=== PATIENT | male | born 1980 | race Hispanic/Latino ===

== ENCOUNTER 2016-06-02 13:33 | Emergency (ER) | payer MEDICAID, MEDICARE ==
[2016-06-02 13:40] VITALS: BMI 32.5
[2016-06-02 13:44] VITALS: TEMP 98.5
[2016-06-02] MEDS ORDERED: Sodium Chloride 0.9% 1,000 ML IV ONE (13:57)
--- NOTE | 2016-06-02 14:41 | ED PDOC ---
Arrival/HPI - General Chief Complaint: High Blood Pressure Time Seen by Provider: 06/02/16 13:34 Historian: Patient - History of Present Illness Narrative History of Present Illness (Text): 06/02/16 13:35 A 35 year old male, whose past medical history includes Diabetes, Hypertension, LE edema, and Neuropathy, presents to the emergency department complaining of a headache, a high blood pressure and possible elevated blood glucose levels that all began earlier today. Headache is not the worse headache of his life. Patient notes a subjective fever at home but states he did not take any antipyretics. Patient denies any chest pain, shortness of breath, polyuria, polydipsa, urinary changes or any other complaints at this time. PMD: Araseli Wakefield MD Time/Duration: 1-3 hours Symptom Onset: Sudden Symptom Course: Unchanged Quality: Other Activities at Onset: Rest Modifying Factors (Text): none Context: Home Associated Symptoms (Text): headache Past Medical History - Provider Review Nursing Documentation Reviewed: Yes - Infectious Disease Hx of Infectious Diseases: None - Tetanus Immunization Tetanus Immunization: Unknown - Cardiac Hx Hypertension: Yes - Pulmonary Hx Respiratory Disorders: No - Neurological HX Cerebrovascular Accident: Yes (multiplie CVAs, 6th one 12/2013) - HEENT Hx HEENT Disorder: Yes (wears glasses) Hx Macular Degeneration: Yes - Renal Hx Renal Disorder: Yes Hx Pyelonephritis: Yes Other/Comment: Kidney infection September 2014 - resolved with antibiotics - Endocrine/Metabolic Hx Hypothyroidism: Yes - Hematological/Oncological Hx Blood Disorders: No - Integumentary Hx Dermatological Disorder: No - Musculoskeletal/Rheumatological Hx Falls: Yes (fell forward 3 days ago) - Gastrointestinal Hx Gastrointestinal Disorders: Yes (colitis, constipation at times) Hx Gastroesophageal Reflux: Yes - Genitourinary/Gynecological Hx Genitourinary Disorders: Yes Hx Incontinence: Yes (urine and stool) Hx Urinary Tract Infection: Yes Other/Comment: pt self caths at home, neurogenic bladder - Psychiatric Hx Psychophysiologic Disorder: Yes Hx Anxiety: Yes Hx Depression: No Hx Emotional Abuse: No Hx Physical Abuse: No Hx Substance Use: No - Past Surgical History Past Surgical History: No Previous - Anesthesia Hx Anesthesia: Yes Hx Anesthesia Reactions: No Hx Malignant Hyperthermia: No - Suicidal Assessment Feels Threatened In Home Enviroment: No Family/Social History - Physician Review Nursing Documentation Reviewed: Yes Family/Social History: No Known Family HX Smoking Status: Never Smoked Hx Alcohol Use: No Hx Substance Use: No Hx Substance Use Treatment: No Allergies/Home Meds Allergies/Adverse Reactions: Allergies sulfamethoxazole [From Bactrim] Allergy (Verified 06/02/15 11:57) ANAPHYLAXIS trimethoprim [From Bactrim] Allergy (Verified 06/02/15 11:57) ANAPHYLAXIS Home Medications: Home Meds Medication Instructions Recorded Confirmed Alprazolam [Xanax] 0.5 mg PO BID 03/04/16 03/04/16 Aspirin [Ecotrin] 81 mg PO DAILY 03/04/16 03/04/16 Atorvastatin [Lipitor] 40 mg PO DAILY 03/04/16 03/04/16 Baclofen [Lioresal] 20 mg PO DAILY 03/04/16 03/04/16 Clopidogrel [Plavix] 75 mg PO DAILY 03/04/16 03/04/16 Cyclobenzaprine [Flexeril] 10 mg PO TID 03/04/16 03/04/16 Ibuprofen [Motrin Tab] 800 mg PO TID PRN 03/04/16 03/04/16 Insulin Detemir [Levemir] 16 unit SC BID 03/04/16 03/04/16 Insulin Lispro [humALOG] 1 unit SC QID 03/04/16 03/04/16 Labetalol [Trandate] 200 mg PO BID 03/04/16 03/04/16 Levocetirizine Dihydrochloride 5 mg PO DAILY 03/04/16 03/04/16 [Xyzal] Levothyroxine [Synthroid] 175 mcg PO DAILY 03/04/16 03/04/16 Ondansetron ODT [Zofran ODT] 4 mg PO TID PRN 03/04/16 03/04/16 Pantoprazole Sodium [Protonix] 40 mg PO DAILY 03/04/16 03/04/16 Pregabalin [Lyrica] 50 mg PO DAILY 03/04/16 03/04/16 Sertraline HCl 50 mg PO DAILY 03/04/16 03/04/16 Tamsulosin [Flomax] 0.4 mg PO DAILY 03/04/16 03/04/16 oxyCODONE [oxyCODONE Immediate 10 mg PO TID PRN 03/04/16 03/04/16 Release Tab] traZODone [Desyrel] 50 mg PO DAILY 03/04/16 03/04/16 Review of Systems - Physician Review All systems were reviewed & negative as marked: Yes - Review of Systems Constitutional: Fevers Respiratory: absent: SOB Cardiovascular: absent: Chest Pain Genitourinary Male: absent: Dysuria, Frequency, Hematuria, Urinary Output Changes Neurological: Headache Endocrine: absent: Polyuria, Polydipsia Physical Exam Vital Signs Reviewed: Yes Vital Signs Temp Pulse Resp BP Pulse Ox 06/02/16 15:00 81 18 144/84 99 06/02/16 13:43 98.5 F 89 18 173/104 H 100 06/02/16 13:40 98.5 F 89 16 173/104 H 100 Temperature: Afebrile Blood Pressure: Hypertensive Pulse: Regular Respiratory Rate: Normal Appearance: Positive for: Well-Appearing, Non-Toxic, Comfortable Pain Distress: None Mental Status: Positive for: Alert and Oriented X 3 Finger Stick Blood Glucose: 241 - Systems Exam Head: Present: Atraumatic, Normocephalic Pupils: Present: PERRL Extroacular Muscles: Present: EOMI Conjunctiva: Present: Normal Mouth: Present: Moist Mucous Membranes Neck: Present: Normal Range of Motion Respiratory/Chest: Present: Clear to Auscultation, Good Air Exchange. No: Respiratory Distress, Accessory Muscle Use Cardiovascular: Present: Regular Rate and Rhythm, Normal S1, S2. No: Murmurs Abdomen: Present: Normal Bowel Sounds. No: Tenderness, Distention, Peritoneal Signs Back: Present: Normal Inspection Upper Extremity: Present: Normal Inspection. No: Cyanosis, Edema Lower Extremity: Present: Normal Inspection. No: Edema Neurological: Present: GCS=15, CN II-XII Intact, Speech Normal Skin: Present: Warm, Dry, Normal Color. No: Rashes Psychiatric: Present: Alert, Oriented x 3, Normal Insight, Normal Concentration Medical Decision Making ED Course and Treatment: 06/02/16 13:35 Impression: A 35 year old male with a headache, high blood pressure and elevated blood sugars. Differential Diagnosis include but are not limited to: tension headache vs. migraine vs. hypertension vs. hyperglycemia Plan: -- EKG -- Chest X-ray -- Labs -- Urinalysis -- Mortin, Zofran, Toradol and IV Fluids -- Reassess and disposition Prior Visits: Notes and results from previous visits were reviewed. The patient last presented to the emergency department 03/04/16 for evaluation of vision problems. Progress Notes: EKG: Ordered, reviewed, and independently interpreted the EKG. Rate : 86 BPM Rhythm : NSR Interpretation : No ST-segment elevations or depressions, no T-wave inversions, normal intervals. 06/02/16 14:51 Chest X-ray: Creator : Andriy Rios MD COMPARISON: 04/25/2015 FINDINGS: LUNGS: No infiltrate. Linear scar/ atelectasis at left base. PLEURA: No significant pleural effusion identified, no pneumothorax apparent. CARDIOVASCULAR: Normal. OSSEOUS STRUCTURES: No significant abnormalities. VISUALIZED UPPER ABDOMEN: Normal. OTHER FINDINGS: None. IMPRESSION: No active disease. 06/02/16 16:06 Labs reviewed with patient. Patient to be discharged with follow-up instructions. - Critical Care Critical Care Minutes: 90 minutes - Lab Interpretations Lab Results: 06/02/16 14:30 06/02/16 14:30 Lab Results 06/02/16 14:30: WBC 8.5 D, RBC 3.85, Hgb 11.2 L, Hct 33.6 L, MCV 87.3, MCH 29.1 , MCHC 33.3, RDW 13.7, Plt Count 409, MPV 10.2, Gran % 67.2, Lymph % (Auto) 22.6 , Millard % (Auto) 5.9, Eos % (Auto) 3.5, Baso % (Auto) 0.8, Gran # 5.69, Lymph # 1.9, Millard # 0.5, Eos # 0.3, Baso # 0.07, Sodium 138, Potassium 4.9, Chloride 102 , Carbon Dioxide 26, Anion Gap 15, BUN 52 H, Creatinine 2.7 H, Est GFR ( Amer) 33, Est GFR (Non-Af Amer) 27, Random Glucose 130 H, Calcium 8.9, Total Bilirubin 0.6, AST 28, ALT 19, Alkaline Phosphatase 92, Troponin I < 0.01, Total Protein 7.1, Albumin 3.6, Globulin 3.5, Albumin/Globulin Ratio 1.0 L 06/02/16 14:00: Urine Opiates Screen Negative, Urine Methadone Screen Negative, Ur Barbiturates Screen Negative, Ur Phencyclidine Scrn Negative, Ur Amphetamines Screen Negative, U Benzodiazepines Scrn Negative, U Oth Cocaine Metabols Negative, U Cannabinoids Screen Negative I have reviewed the lab results: Yes - RAD Interpretation Radiology Orders: 06/02/16 13:58 CHEST PORTABLE [RAD] Stat - Medication Orders Current Medication Orders: Sodium Chloride (Sodium Chloride 0.9%) 1,000 mls @ 250 mls/hr IV .Q4H ONE Stop: 06/02/16 17:56 Last Admin: 06/02/16 14:49 Dose: 250 MLS/HR eMAR Start Stop Document 06/02/16 14:49 HI (Rec: 06/02/16 14:49 HI [id number]) Intravenous Solution Start Date 06/02/16 Start Time 14:49 Discontinued Medications Ibuprofen (Motrin Tab) 600 mg PO STAT STA Stop: 06/02/16 13:58 Last Admin: 06/02/16 14:36 Dose: Ketorolac Tromethamine (Toradol) 30 mg IVP STAT STA Stop: 06/02/16 14:03 Last Admin: 06/02/16 14:49 Dose: 30 MG IVP Administration Document 06/02/16 14:49 HI (Rec: 06/02/16 14:49 HI [id number]) Charges for Administration # of IVP Administrations 1 Ondansetron HCl (Zofran Inj) 4 mg IVP STAT STA Stop: 06/02/16 14:03 Last Admin: 06/02/16 14:49 Dose: 4 MG IVP Administration Document 06/02/16 14:49 HI (Rec: 06/02/16 14:49 OK [id number]) Charges for Administration # of IVP Administrations 1 - Scribe Statement The provider has reviewed the documentation as recorded by the Scribe Chepe Heaton Provider Scribe Attestation: All medical record entries made by the Scribe were at my direction and personally dictated by me. I have reviewed the chart and agree that the record accurately reflects my personal performance of the history, physical exam, medical decision making, and the department course for this patient. I have also personally directed, reviewed, and agree with the discharge instructions and disposition. Disposition/Present on Arrival - Present on Arrival Any Indicators Present on Arrival: No History of DVT/PE: No History of Uncontrolled Diabetes: No Urinary Catheter: Yes History of Decub. Ulcer: No History Surgical Site Infection Following: None - Disposition Have Diagnosis and Disposition been Completed?: Yes Diagnosis: Chronic kidney disease (CKD), Diabetes Disposition: HOME/ ROUTINE Disposition Time: 15:45 Patient Plan: Discharge Patient Problems: Current Active Problems Problem Status Diagnosed Acute kidney injury Acute Acute myocardial infarction Acute Cerebral vascular accident Acute Gastritis Acute Hematuria Acute Hyperkalemia Acute Neurogenic bladder Acute Pyelonephritis Acute Uncontrolled diabetes mellitus Acute Condition: STABLE Discharge Instructions (ExitCare): Diabetes Mellitus Type 1 in Adults (ED), Lira Catheter Placement and Care (ED) Additional Instructions: Thank you for letting us take care of you today. Your provider was Dr. Bustillo. You were treated for headache and hyperglycemia. The emergency medical care you received today was directed at your acute symptoms. If you were prescribed any medication, please fill it and take as directed. It may take several days for your symptoms to resolve. Return to the Emergency Department if your symptoms worsen, do not improve, or if you have any other problems. Please contact your doctor or call one of the physicians/clinics you have been referred to that are listed on the Patient Visit Information form that is included in your discharge packet. Bring any paperwork you were given at discharge with you along with any medications you are taking to your follow up visit. Our treatment cannot replace ongoing medical care by a primary care provider (PCP) outside of the emergency department. Thank you for allowing the [facility] team to be part of your care today. Follow up with your doctor in 3-4 days for re-evaluation. Referrals: PCP,NO [Primary Care Provider] - Follow up with primary
[2016-06-02 14:50] LABS: ADD MANUAL DIFF? NO
--- NOTE | 2016-06-02 14:52 | RAD ---
HISTORY: ? fever COMPARISON: 04/25/2015 FINDINGS: LUNGS: No infiltrate. Linear scar/ atelectasis at left base. PLEURA: No significant pleural effusion identified, no pneumothorax apparent. CARDIOVASCULAR: Normal. OSSEOUS STRUCTURES: No significant abnormalities. VISUALIZED UPPER ABDOMEN: Normal. OTHER FINDINGS: None. IMPRESSION: No active disease.
[2016-06-02 14:55] LABS: BASO # 0.07 [, K/mm3] (0.0-2.0); BASO % 0.8 % (0.0-3.0); EOS # 0.3 (0.0-0.7); EOS % 3.5 % (1.5-5.0); GRAN # 5.69 (1.4-6.5); GRAN % 67.2 % (50.0-68.0); HEMATOCRIT 33.6 % (42.0-52.0); LYMPH # 1.9 (1.2-3.4); LYMPH % 22.6 % (22.0-35.0); MEAN CELL VOLUME 87.3 fL (80.0-105.0); MEAN CORPUSCULAR HEMOGLOBIN 29.1 pg (25.0-35.0); MEAN CORPUSCULAR HGB CONC 33.3 g/dl (31.0-37.0); MEAN PLATELET VOLUME 10.2 fl (7.0-11.0); MONO # 0.5 (0.1-0.6); MONO % 5.9 % (1.0-6.0); PLATELET COUNT 409 [, 10^3/uL] (120.0-450.0); RED CELL DISTRIBUTION WIDTH 13.7 % (11.5-14.5); WHITE BLOOD COUNT 8.5 [, 10^3/ul] (4.5-11.0)
[2016-06-02 15:06] LABS: ALKALINE PHOSPHATASE 92 U/L (38-133); ALT/SGPT 19 U/L (7-56); AST/SGOT 28 U/L (15-59); BILIRUBIN,TOTAL 0.6 mg/dL (0.2-1.3); BLOOD UREA NITROGEN 52 mg/dL (7-21); CALCIUM 8.9 mg/dL (8.4-10.5); CARBON DIOXIDE 26 mmol/L (21-33); CHLORIDE 102 mmol/L (98-107); GFR AFRICAN-AMERICAN 33; GLUCOSE,RANDOM 130 mg/dL (70-110); POTASSIUM 4.9 mmol/L (3.6-5.0); SODIUM 138 mmol/L (132-148); TOTAL PROTEIN 7.1 g/dL (5.8-8.3)
[2016-06-02 15:31] LABS: TROPONIN I < 0.01 ng/mL
[2016-06-02 16:23] VITALS: BP 136/82; PULSE 75; RESP 16; O2SAT 100
--- NOTE | 2016-06-02 18:51 | CARD ---
APPROVED REPORT EKG Measurement Heart [id number] <Conclusion> Normal sinus rhythm Inferior infarct, age undetermined Abnormal ECG
== END 2016-06-02 17:01 | disposition home or self-care (01) ==
LOC: ED 13:33
DX: I12.9 Hypertensive chronic kidney disease with stage 1 through stage 4 chronic kidney disease, or unspecified chronic kidney disease (principal); E11.22 Type 2 diabetes mellitus with diabetic chronic kidney disease; N18.9 Chronic kidney disease, unspecified
CPT/HCPCS: 71010; 80053; 82948; 84484; 85025; 87086; 87181; 93005; 96374; 96375; 99285; G0480; J1885; J2405; J7040

== ENCOUNTER 2016-06-11 00:08 | Emergency (ER) | payer MEDICARE ==
[2016-06-11 00:09] VITALS: BMI 32.5
[2016-06-11 00:23] VITALS: RESP 18; TEMP 98.8; O2SAT 100
--- NOTE | 2016-06-11 00:32 | ED PDOC ---
Arrival/HPI - General Chief Complaint: Male Genitourinary Time Seen by Provider: 06/11/16 00:12 Historian: Patient - History of Present Illness Narrative History of Present Illness (Text): 06/11/16 00:30 Manjinder Mccartney Jr is a 35 year old male, whose past medical history includes diabetes, hypertension, stroke, NH, and neuropathy, who presents to the ED complaining of a López catheter malfunction tonight. Patient states his López catheter is blocked and he has been unable to pass urine. Patient reports some associated suprapubic discomfort. Patient denies any fever, chills, chest pain, shortness of breath, nausea, vomiting, diarrhea, neck pain, headache, dizziness, or any other complaints. Time/Duration: Other (today) Symptom Onset: Gradual Symptom Course: Unchanged Activities at Onset: Rest, Light Context: Home Past Medical History - Provider Review Nursing Documentation Reviewed: Yes - Infectious Disease Hx of Infectious Diseases: None - Tetanus Immunization Tetanus Immunization: Unknown - Cardiac Hx Hypertension: Yes - Pulmonary Hx Respiratory Disorders: No - Neurological HX Cerebrovascular Accident: Yes (multiplie CVAs, 6th one 12/2013) - HEENT Hx HEENT Disorder: Yes (wears glasses) Hx Macular Degeneration: Yes - Renal Hx Renal Disorder: Yes Hx Pyelonephritis: Yes Other/Comment: Kidney infection September 2014 - resolved with antibiotics - Endocrine/Metabolic Hx Hypothyroidism: Yes - Hematological/Oncological Hx Blood Disorders: No - Integumentary Hx Dermatological Disorder: No - Musculoskeletal/Rheumatological Hx Falls: Yes (fell forward 3 days ago) - Gastrointestinal Hx Gastrointestinal Disorders: Yes (colitis, constipation at times) Hx Gastroesophageal Reflux: Yes - Genitourinary/Gynecological Hx Genitourinary Disorders: Yes Hx Incontinence: Yes (urine and stool) Hx Urinary Tract Infection: Yes Other/Comment: pt self caths at home, neurogenic bladder - Psychiatric Hx Psychophysiologic Disorder: Yes Hx Anxiety: Yes Hx Depression: No Hx Emotional Abuse: No Hx Physical Abuse: No Hx Substance Use: No - Past Surgical History Past Surgical History: No Previous - Anesthesia Hx Anesthesia: Yes Hx Anesthesia Reactions: No Hx Malignant Hyperthermia: No - Suicidal Assessment Feels Threatened In Home Enviroment: No Family/Social History - Physician Review Nursing Documentation Reviewed: Yes Family/Social History: No Known Family HX Smoking Status: Never Smoked Hx Alcohol Use: No Hx Substance Use: No Hx Substance Use Treatment: No Allergies/Home Meds Allergies/Adverse Reactions: Allergies sulfamethoxazole [From Bactrim] Allergy (Verified 06/11/16 00:15) ANAPHYLAXIS trimethoprim [From Bactrim] Allergy (Verified 06/11/16 00:15) ANAPHYLAXIS Home Medications: Home Meds Medication Instructions Recorded Confirmed Alprazolam [Xanax] 0.5 mg PO BID 03/04/16 06/11/16 Aspirin [Ecotrin] 81 mg PO DAILY 03/04/16 06/11/16 Atorvastatin [Lipitor] 40 mg PO DAILY 03/04/16 06/11/16 Baclofen [Lioresal] 20 mg PO DAILY 03/04/16 06/11/16 Clopidogrel [Plavix] 75 mg PO DAILY 03/04/16 06/11/16 Cyclobenzaprine [Flexeril] 10 mg PO TID 03/04/16 06/11/16 Ibuprofen [Motrin Tab] 800 mg PO TID PRN 03/04/16 06/11/16 Insulin Detemir [Levemir] 16 unit SC BID 03/04/16 06/11/16 Insulin Lispro [humALOG] 1 unit SC QID 03/04/16 06/11/16 Labetalol [Trandate] 200 mg PO BID 03/04/16 06/11/16 Levocetirizine Dihydrochloride 5 mg PO DAILY 03/04/16 06/11/16 [Xyzal] Levothyroxine [Synthroid] 175 mcg PO DAILY 03/04/16 06/11/16 Ondansetron ODT [Zofran ODT] 4 mg PO TID PRN 03/04/16 06/11/16 Pantoprazole Sodium [Protonix] 40 mg PO DAILY 03/04/16 06/11/16 Pregabalin [Lyrica] 50 mg PO DAILY 03/04/16 06/11/16 Sertraline HCl 50 mg PO DAILY 03/04/16 06/11/16 Tamsulosin [Flomax] 0.4 mg PO DAILY 03/04/16 06/11/16 oxyCODONE [oxyCODONE Immediate 10 mg PO TID PRN 03/04/16 06/11/16 Release Tab] traZODone [Desyrel] 50 mg PO DAILY 03/04/16 06/11/16 Review of Systems - Physician Review All systems were reviewed & negative as marked: Yes - Review of Systems Constitutional: Normal. absent: Fevers Eyes: Normal ENT: Normal Respiratory: Normal. absent: SOB, Cough Cardiovascular: Normal. absent: Chest Pain Gastrointestinal: Normal. absent: Abdominal Pain, Diarrhea, Nausea, Vomiting Genitourinary Male: Other (+lópez catheter malfunction). absent: Dysuria, Frequency, Hematuria, Urinary Output Changes Musculoskeletal: Normal. absent: Back Pain, Neck Pain Skin: Normal. absent: Rash Neurological: Normal. absent: Headache, Dizziness Endocrine: Normal Hemo/Lymphatic: Normal Psychiatric: Normal Physical Exam Vital Signs Reviewed: Yes Vital Signs Temp Pulse Resp BP Pulse Ox 06/11/16 03:03 98.8 F 73 18 159/87 H 100 06/11/16 00:22 98.8 F 79 18 176/96 H 100 Temperature: Afebrile Blood Pressure: Hypertensive Pulse: Regular Respiratory Rate: Normal Appearance: Positive for: Well-Appearing, Non-Toxic, Comfortable Pain Distress: None Mental Status: Positive for: Alert and Oriented X 3 Finger Stick Blood Glucose: 230 - Systems Exam Head: Present: Atraumatic, Normocephalic Pupils: Present: PERRL Extroacular Muscles: Present: EOMI Conjunctiva: Present: Normal Mouth: Present: Moist Mucous Membranes Neck: Present: Normal Range of Motion Respiratory/Chest: Present: Clear to Auscultation, Good Air Exchange. No: Respiratory Distress, Accessory Muscle Use Cardiovascular: Present: Regular Rate and Rhythm, Normal S1, S2. No: Murmurs Abdomen: Present: Distention (Suprapubic fullness), Normal Bowel Sounds. No: Tenderness, Peritoneal Signs Upper Extremity: Present: Normal Inspection. No: Cyanosis, Edema Lower Extremity: Present: Normal Inspection. No: Edema Neurological: Present: GCS=15, CN II-XII Intact, Speech Normal Skin: Present: Warm, Dry, Normal Color. No: Rashes Psychiatric: Present: Alert, Oriented x 3, Normal Insight, Normal Concentration Medical Decision Making ED Course and Treatment: 06/11/16 00:30 Impression: 35 year old male complaining of a blocked López catheter today. Differential Diagnosis include but are not limited to: López catheter problem Plan: -- López catheter -- Reassess and disposition Prior Visits: Notes and results from previous visits were reviewed. Progress Notes: 06/11/16 03:27 López placed RN. Draining urine well, without complications. On re-evaluation, the patient feels better and is in no acute distress. I have discussed the results and plan with the patient, who expresses understanding. Patient in agreement with plan to discharged home. Patient is stable for discharge. Patient was instructed to follow up with physician/clinic in 1-2 days or return if symptoms worsen or new concerning symptoms arise. - Lab Interpretations Lab Results: Lab Results 06/11/16 01:45: Urine Color Yellow, Urine Appearance Clear, Urine pH 6.0, Ur Specific Brenton 1.025, Urine Protein >=300 H, Urine Glucose (UA) 250 H, Urine Ketones Negative, Urine Blood Small H, Urine Nitrate Positive H, Urine Bilirubin Negative, Urine Urobilinogen 0.2, Ur Leukocyte Esterase Moderate H, Urine RBC 0 - 2, Urine WBC Tntc, Urine Bacteria Large 06/11/16 00:21: POC Glucose (mg/dL) 230 H - Medication Orders Current Medication Orders: Discontinued Medications Cephalexin Monohydrate (Keflex) 500 mg PO STAT STA PRN Reason: Protocol Stop: 06/11/16 02:28 Last Admin: 06/11/16 02:59 Dose: 500 MG - Scribe Statement The provider has reviewed the documentation as recorded by the Garrett Rodrigez Provider Attestation: All medical record entries made by the Garrett were at my direction and personally dictated by me. I have reviewed the chart and agree that the record accurately reflects my personal performance of the history, physical exam, medical decision making, and the department course for this patient. I have also personally directed, reviewed, and agree with the discharge instructions and disposition. Disposition/Present on Arrival - Present on Arrival Any Indicators Present on Arrival: No History of DVT/PE: No History of Uncontrolled Diabetes: No Urinary Catheter: Yes History of Decub. Ulcer: No History Surgical Site Infection Following: None - Disposition Have Diagnosis and Disposition been Completed?: Yes Diagnosis: Urinary tract infection, López catheter problem Disposition: HOME/ ROUTINE Disposition Time: 03:25 Patient Problems: Current Active Problems Problem Status Diagnosed Acute kidney injury Acute Acute myocardial infarction Acute Cerebral vascular accident Acute Gastritis Acute Hematuria Acute Hyperkalemia Acute Neurogenic bladder Acute Pyelonephritis Acute Uncontrolled diabetes mellitus Acute Condition: GOOD Discharge Instructions (ExitCare): Urinary Tract Infection in Men (ED), López Catheter Placement and Care (ED) Prescriptions: Cephalexin [Keflex] 500 mg PO BID #14 capsule Referrals: Araseli Wakefield MD [Primary Care Provider] - Follow up with primary
[2016-06-11 02:03] LABS: URINE APPEARANCE CLEAR (CLEAR); URINE BILIRUBIN NEGATIVE (NEGATIVE); URINE BLOOD SMALL (NEGATIVE); URINE COLOR YELLOW (YELLOW); URINE GLUCOSE (UA) 250 mg/dL (NEGATIVE); URINE KETONE NEGATIVE (NEGATIVE); URINE LEUKOCYTE ESTERASE MODERATE Leu/uL (NEGATIVE); URINE PROTEIN >=300 mg/dL (<30 mg/dL); URINE UROBILINOGEN 0.2 E.U./dL (<1 E.U./dL)
[2016-06-11 02:10] LABS: URINE BACTERIA LARGE (NEG); URINE RBC 0 - 2 /hpf (0-2); URINE WBC TNTC /hpf (0-6)
[2016-06-11 03:05] VITALS: BP 159/87; PULSE 73
== END 2016-06-11 04:08 | disposition home or self-care (01) ==
LOC: ED 00:08
DX: N39.0 Urinary tract infection, site not specified (principal); T83.9XXA Unspecified complication of genitourinary prosthetic device, implant and graft, initial encounter; Y84.8 Other medical procedures as the cause of abnormal reaction of the patient, or of later complication, without mention of misadventure at the time of the procedure; Y92.009 Unspecified place in unspecified non-institutional (private) residence as the place of occurrence of the external cause; E11.9 Type 2 diabetes mellitus without complications; I10 Essential (primary) hypertension; E03.9 Hypothyroidism, unspecified

== ENCOUNTER 2016-07-12 10:32 | Inpatient (IN) | payer MEDICARE, MEDICAID ==
[2016-07-12] MEDS ORDERED: Sodium Chloride 0.9% 1,000 ML IV STA ×5 (11:06→18:50)
[2016-07-12 11:42] LABS: ADD MANUAL DIFF? NO
[2016-07-12 11:46] LABS: VENOUS BLOOD GAS BASE EXCESS -18.5 mmol/L (0.0-2.0)
[2016-07-12 11:54] LABS: VENOUS BLOOD PH 7.15 (7.32-7.43)
--- NOTE | 2016-07-12 11:58 | ED PDOC ---
Arrival/HPI - General Chief Complaint: GI Problem Time Seen by Provider: 07/12/16 11:04 Historian: Patient EM Caveat: Other (poor historian) - History of Present Illness Narrative History of Present Illness (Text): 07/12/16 11:34 A 35 year old male, whose past medical history includes diabetes, hypertension, stroke, CO, and neuropathy, presents to the emergency department complaining of "not feeling well." Patient reports he has been feeling warm for a day, along with nausea. Patient says he has not vomiting but has been dry heaving a lot. He denies any chest pain. HPI and ROS limited because patient is a poor historian. PMD: Dr. Mandujano Time/Duration: Other Symptom Course: Unchanged Quality: Other Activities at Onset: Rest Context: Home Past Medical History - Provider Review Nursing Documentation Reviewed: Yes - Infectious Disease Hx of Infectious Diseases: None - Tetanus Immunization Tetanus Immunization: Unknown - Cardiac Hx CO: Yes (x2) Hx Hypertension: Yes - Pulmonary Hx Respiratory Disorders: No - Neurological HX Cerebrovascular Accident: Yes (Multiple CVAs) - HEENT Hx HEENT Disorder: Yes (wears glasses) Hx Macular Degeneration: Yes - Renal Hx Renal Disorder: Yes Hx Pyelonephritis: Yes - Endocrine/Metabolic Hx Diabetes Mellitus Type 2: Yes Hx Hypothyroidism: Yes - Hematological/Oncological Hx Blood Disorders: No - Integumentary Hx Dermatological Disorder: No - Musculoskeletal/Rheumatological Hx Falls: Yes Other/Comment: 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 - Gastrointestinal Hx Gastrointestinal Disorders: Yes (colitis, constipation at times) Hx Gastroesophageal Reflux: Yes - Genitourinary/Gynecological Hx Genitourinary Disorders: Yes Hx Incontinence: Yes (urine and stool) Hx Urinary Tract Infection: Yes Other/Comment: lópez - Psychiatric Hx Psychophysiologic Disorder: Yes Hx Anxiety: Yes Hx Depression: No Hx Emotional Abuse: No Hx Physical Abuse: No Hx Substance Use: No - Past Surgical History Past Surgical History: No Previous - Anesthesia Hx Anesthesia: Yes Hx Anesthesia Reactions: No Hx Malignant Hyperthermia: No - Suicidal Assessment Feels Threatened In Home Enviroment: No Family/Social History - Physician Review Nursing Documentation Reviewed: Yes Family/Social History: Unknown Family HX Smoking Status: Never Smoked Hx Alcohol Use: No Hx Substance Use: No Hx Substance Use Treatment: No Allergies/Home Meds Allergies/Adverse Reactions: Allergies sulfamethoxazole [From Bactrim] Allergy (Verified 07/12/16 10:40) ANAPHYLAXIS trimethoprim [From Bactrim] Allergy (Verified 07/12/16 10:40) ANAPHYLAXIS Home Medications: Home Meds Medication Instructions Recorded Confirmed Alprazolam [Xanax] 0.5 mg PO BID 03/04/16 07/12/16 Aspirin [Ecotrin] 81 mg PO DAILY 03/04/16 07/12/16 Clopidogrel [Plavix] 75 mg PO DAILY 03/04/16 07/12/16 Cyclobenzaprine [Flexeril] 10 mg PO TID 03/04/16 07/12/16 Labetalol [Trandate] 200 mg PO BID 03/04/16 07/12/16 Levothyroxine [Synthroid] 175 mcg PO DAILY 03/04/16 07/12/16 Ondansetron ODT [Zofran ODT] 4 mg PO TID PRN 03/04/16 07/12/16 Pantoprazole Sodium [Protonix] 40 mg PO DAILY 03/04/16 07/12/16 Sertraline HCl 50 mg PO DAILY 03/04/16 07/12/16 Tamsulosin [Flomax] 0.4 mg PO DAILY 03/04/16 07/12/16 oxyCODONE [oxyCODONE Immediate 10 mg PO TID PRN 03/04/16 07/12/16 Release Tab] traZODone [Desyrel] 50 mg PO DAILY 03/04/16 07/12/16 Cholecalciferol (Vitamin D3) 2,000 unit PO DAILY 07/12/16 07/12/16 [Vitamin D3] Furosemide [Lasix] 20 mg PO DAILY 07/12/16 07/12/16 Gabapentin [Neurontin] 600 mg PO TID 07/12/16 07/12/16 Lisinopril [Zestril] 10 mg PO DAILY 07/12/16 07/12/16 Polymyxin B Sulf/Trimethoprim 10 ml OS QID 07/12/16 07/12/16 [Polymyxin B/Trimethoprim Sulfate 20047 U/ml-1] Prednisolone Acetate [Pred Forte 1 1 ml OS QID 07/12/16 07/12/16 ml] Review of Systems - Review of Systems Systems not reviewed;Unavailable: Other (poor historian) Constitutional: Fevers (subjective) Cardiovascular: absent: Chest Pain Gastrointestinal: Nausea, Other (dry heaving). absent: Vomiting Physical Exam Vital Signs Reviewed: Yes Vital Signs Temp Pulse Resp BP Pulse Ox 07/12/16 14:17 127 H 18 138/71 100 07/12/16 13:38 128 H 18 141/79 100 07/12/16 12:33 126 H 22 145/86 100 07/12/16 10:46 98.3 F 129 H 22 147/90 100 Temperature: Afebrile Blood Pressure: Normal Pulse: Tachycardic Respiratory Rate: Normal Appearance: Positive for: Non-Toxic, Ill-Appearing Pain Distress: None Mental Status: Positive for: Alert and Oriented X 3 - Systems Exam Head: Present: Atraumatic, Normocephalic Pupils: Present: PERRL Extroacular Muscles: Present: EOMI Conjunctiva: Present: Normal Mouth: Present: Dry Neck: Present: Normal Range of Motion Respiratory/Chest: Present: Clear to Auscultation, Good Air Exchange. No: Respiratory Distress, Accessory Muscle Use Cardiovascular: Present: Normal S1, S2, Tachycardic. No: Murmurs Abdomen: Present: Normal Bowel Sounds. No: Tenderness, Distention, Peritoneal Signs Upper Extremity: Present: Normal Inspection. No: Cyanosis, Edema Lower Extremity: Present: Normal Inspection. No: Edema Neurological: Present: GCS=15, CN II-XII Intact, Speech Normal Skin: Present: Warm, Dry, Normal Color. No: Rashes Psychiatric: Present: Alert, Oriented x 3, Normal Insight, Normal Concentration Medical Decision Making ED Course and Treatment: 07/12/16 11:34 Impression: A 35 year old male not feeling well. Patient is a poor history and is unable to describe symptoms properly, but he does state to feel warm and nausea. Differential Diagnosis included but are not limited to: electrolyte imbalance vs. sepsis vs. DKA Plan: -- EKG -- Chest X-ray -- Labs -- Urinalysis -- Zofran and IV Fluids -- Reassess and disposition Prior Visits: Notes and results from previous visits were reviewed. The patient last presented to the emergency department on 06/11/16 for evaluation of malfunctioning López catheter. Progress Notes: EKG: Ordered, reviewed, and independently interpreted the EKG. Rate : 126 BPM Rhythm : Sinus Tachycardia Interpretation : normal intervals, normal axis, PT wave noted in the per- cordial leads. 07/12/16 12:20 Patient lab shows a Potassium of 6.9, glucose is 776 and bicarbonate of 9. Will start patient in Insulin, bicarbonate and Calcium Gluconate drip. Patient will need admission. Director [employer] paged. 07/12/16 12:[address] Shon Vasquez, who is aware and agrees with the plan. 07/12/16 12:35 Dr. Zhang (Medical Service production helper) paged. 07/12/16 12:[address] Zhang, who is aware and agrees with the plan to admit the patient to ICU for hyperkalemia, DKA and possible Sepsis. I have discussed the results and plan with the patient and his sister, who expresses understanding. Patient and sister given the opportunity to ask question, all questions were answered and there is agreement with the plan to be admitted to the hospital. 07/12/16 13:45 Chest X-ray: Creator : Skye Vera V. COMPARISON: 06/02/2016 FINDINGS: LUNGS: No active pulmonary disease. Shallow lung volumes PLEURA: No significant pleural effusion identified, no pneumothorax apparent. CARDIOVASCULAR: Probable top-normal heart size given inspiration OSSEOUS STRUCTURES: No significant abnormalities. VISUALIZED UPPER ABDOMEN: Normal. OTHER FINDINGS: None. IMPRESSION: No active disease. - Critical Care Critical Care Minutes: 60 minutes - Lab Interpretations Lab Results: 07/12/16 11:30 07/12/16 11:55 Lab Results 07/12/16 11:55: Sodium 135, Chloride 98, Potassium 6.9 H* D, Carbon Dioxide 9 L D, Anion Gap 35 H, BUN 57 H, Creatinine 2.8 H, Est GFR ( Amer) 31, Est GFR (Non-Af Amer) 26, Random Glucose 776 H* D, Calcium 9.2, Total Bilirubin 0.8 , AST 29, ALT 28, Alkaline Phosphatase 123, Lactate Dehydrogenase 445, Total Creatine Kinase 80, Troponin I 0.02 D, Total Protein 6.9, Albumin 3.7, Globulin 3.2, Albumin/Globulin Ratio 1.2, Lipase 28 07/12/16 11:55: PT 10.8, INR 1.00, APTT 27.4 07/12/16 11:30: pO2 47, VBG pH 7.15 L*, VBG pCO2 25.0 L, VBG HCO3 8.7 L, VBG Total CO2 9.5 L, VBG O2 Sat (Calc) 82.1 H, VBG Base Excess -18.5 L, VBG Potassium 7.8 H*, Sodium 135.0, Chloride 100.0, Glucose > 750 H*, Lactate 3.2 H , FiO2 21.0, Venous Blood Potassium 7.8 H* 07/12/16 11:30: WBC 20.9 H D, RBC 3.97, Hgb 11.6 L, Hct 36.1 L, MCV 90.9, MCH 29.2, MCHC 32.1, RDW 13.7, Plt Count 524 H, MPV 10.3, Gran % 89.2 H, Lymph % ( Auto) 4.3 L, [place] % (Auto) 5.9, Eos % (Auto) 0.1 L, Baso % (Auto) 0.5, Gran # 18.64 H, Lymph # 0.9 L, [place] # 1.2 H, Eos # 0.0, Baso # 0.10 I have reviewed the lab results: Yes - RAD Interpretation Radiology Orders: 07/12/16 12:12 CHEST PORTABLE [RAD] Stat - Medication Orders Current Medication Orders: Alprazolam (Xanax) 0.5 mg PO BID [facility] PRN Reason: Protocol Aspirin (Ecotrin) 81 mg PO DAILY [facility] Last Admin: 07/12/16 13:58 Dose: 81 mg Cholecalciferol (Vitamin D) 2,000 iu PO DAILY [facility] Clopidogrel Bisulfate (Plavix) 75 mg PO DAILY [facility] Last Admin: 07/12/16 13:58 Dose: 75 mg Gabapentin (Neurontin) 600 mg PO TID [facility] PRN Reason: Protocol Heparin Sodium (Porcine) (Heparin) 5,000 units SC Q8 [facility] PRN Reason: Protocol Sodium Chloride (Sodium Chloride 0.9%) 1,000 mls @ 100 mls/hr IV .Q10H STA Stop: 07/12/16 21:05 Last Admin: 07/12/16 14:21 Dose: Insulin Human Regular 100 (units/ Sodium Chloride) 100 mls @ 3 mls/hr IV .Q24H PRN; Protocol; 3 UNITS/HR PRN Reason: TITRATE PER MD ORDER Last Admin: 07/12/16 12:44 Dose: 3 mls/hr Sodium Chloride (Sodium Chloride 0.9%) 1,000 mls @ 150 mls/hr IV .Q6H40M [facility] Labetalol HCl (Trandate) 200 mg PO BID [facility] Levothyroxine Sodium (Synthroid) 175 mcg PO DAILY [facility] Metoclopramide HCl (Reglan) 10 mg IVP Q6H [facility] Last Admin: 07/12/16 13:57 Dose: 10 mg Ondansetron HCl (Zofran Inj) 4 mg IVP Q4H PRN PRN Reason: Nausea/Vomiting Pantoprazole Sodium (Protonix Ec Tab) 40 mg PO DAILY [facility] Prednisolone Acetate (Pred Forte 1% Opht Susp) 0 ml OS QID [facility] Sertraline HCl (Zoloft) 50 mg PO DAILY [facility] Tamsulosin HCl (Flomax) 0.4 mg PO DAILY [facility] Last Admin: 07/12/16 13:58 Dose: 0.4 mg Trazodone HCl (Desyrel) 50 mg PO DAILY [facility] Discontinued Medications Calcium Gluconate (Calcium Gluconate Iv) 1,000 mg IVP ONCE ONE Stop: 07/12/16 12:35 Last Admin: 07/12/16 13:10 Dose: 1,000 mg Sodium Chloride (Sodium Chloride 0.9%) 1,000 mls @ 999 mls/hr IV .Q1H1M STA Stop: 07/12/16 13:08 Last Admin: 07/12/16 12:25 Dose: 999 mls/hr Vancomycin HCl (Vancomycin 1gm) 1 gm in 250 mls @ 167 mls/hr IVPB STAT STA PRN Reason: Protocol Stop: 07/12/16 14:00 Last Admin: 07/12/16 13:58 Dose: 167 mls/hr Piperacillin Sod/Tazobactam Sod (Zosyn 3.375 In Ns 100ml) 100 mls @ 200 mls/hr IVPB STAT STA PRN Reason: Protocol Stop: 07/12/16 13:00 Last Admin: 07/12/16 13:20 Dose: 200 mls/hr Sodium Chloride (Sodium Chloride 0.9%) 1,000 mls @ 999 mls/hr IV .Q1H1M STA Stop: 07/12/16 13:53 Last Admin: 07/12/16 13:09 Dose: 999 mls/hr Sodium Chloride (Sodium Chloride 0.9%) 1,000 mls @ 999 mls/hr IV .Q1H1M STA Stop: 07/12/16 13:54 Last Admin: 07/12/16 14:22 Dose: 999 mls/hr Sodium Chloride (Sodium Chloride 0.9%) 100 mls @ 150 mls/hr IV .Q40M [facility] Ondansetron HCl (Zofran Inj) 4 mg IVP STAT STA Stop: 07/12/16 11:07 Last Admin: 07/12/16 12:05 Dose: 4 mg Sodium Bicarbonate (Sodium Bicarbonate (8.4%) 50 Meq Syringe) 50 meq IVP ONCE ONE Stop: 07/12/16 12:30 Last Admin: 07/12/16 13:09 Dose: 50 meq Sodium Bicarbonate (Sodium Bicarbonate (8.4%) 50 Meq Syringe) 50 meq IVP ONCE ONE Stop: 07/12/16 12:31 Last Admin: 07/12/16 13:09 Dose: 50 meq Sodium Polystyrene Sulfonate (Kayexalate Oral Susp) 30 gm PO STAT STA Stop: 07/12/16 12:11 Last Admin: 07/12/16 12:29 Dose: 30 gm - Scribe Statement The provider has reviewed the documentation as recorded by the Garrett Heaton Provider Garrett Attestation: All medical record entries made by the Garrett were at my direction and personally dictated by me. I have reviewed the chart and agree that the record accurately reflects my personal performance of the history, physical exam, medical decision making, and the department course for this patient. I have also personally directed, reviewed, and agree with the discharge instructions and disposition. Disposition/Present on Arrival - Present on Arrival Any Indicators Present on Arrival: No History of DVT/PE: No History of Uncontrolled Diabetes: No Urinary Catheter: Yes (changed one month ago) History of Decub. Ulcer: No History Surgical Site Infection Following: None - Disposition Have Diagnosis and Disposition been Completed?: Yes Diagnosis: DKA (diabetic ketoacidoses), Hyperkalemia, Acute on chronic renal failure Disposition: HOSPITALIZED Disposition Time: 12:57 Patient Plan: Admission, ICU Condition: SERIOUS
[2016-07-12 12:06] LABS: BASO % 0.5 % (0.0-3.0); EOS % 0.1 % (1.5-5.0); GRAN # 18.64 (1.4-6.5); GRAN % 89.2 % (50.0-68.0); HEMATOCRIT 36.1 % (42.0-52.0); LYMPH # 0.9 (1.2-3.4); LYMPH % 4.3 % (22.0-35.0); MEAN CELL VOLUME 90.9 fL (80.0-105.0); MEAN CORPUSCULAR HEMOGLOBIN 29.2 pg (25.0-35.0); MEAN CORPUSCULAR HGB CONC 32.1 g/dl (31.0-37.0); MEAN PLATELET VOLUME 10.3 fl (7.0-11.0); MONO # 1.2 (0.1-0.6); MONO % 5.9 % (1.0-6.0); PLATELET COUNT 524 10^3/uL (120.0-450.0); RED CELL DISTRIBUTION WIDTH 13.7 % (11.5-14.5); WHITE BLOOD COUNT 20.9 10^3/ul (4.5-11.0)
[2016-07-12] MEDS ORDERED: Insulin Regular 100 UNITS in Sodium Chloride 0.9% 99 ML IV PRN (12:06)
[2016-07-12] MEDS ORDERED: Sod Polystyrene Sulf 15 gm/60 ml Oral Susp PO STA (12:10)
[2016-07-12 12:13] LABS: ALB/GLOB RATIO 1.2 (1.1-1.8); BILIRUBIN,TOTAL 0.8 mg/dL (0.2-1.3); CALCIUM 9.2 mg/dL (8.4-10.5); TOTAL PROTEIN 6.9 g/dL (5.8-8.3)
[2016-07-12 12:20] LABS: PARTIAL THROMBOPLASTIN TIME 27.4 Seconds (23.7-30.8)
[2016-07-12 12:24] LABS: TROPONIN I 0.02 ng/mL
[2016-07-12 12:26] LABS: POTASSIUM 6.9 mmol/L (3.6-5.0)
[2016-07-12] MEDS ORDERED: Sodium Bicarbonate (8.4%) 50 Meq Syringe IVP ONE ×2 (12:29→12:30)
[2016-07-12] MEDS ORDERED: Vancomycin 1gm in NS 250ml 1 GM/250 ML BAG IVPB STA (12:31)
[2016-07-12] MEDS ORDERED: Piperacillin/Tazobact 3.375 gm 100 ML IVPB STA (12:31)
--- NOTE | 2016-07-12 13:44 | RAD ---
HISTORY: r/o infiltrate COMPARISON: 06/02/2016 FINDINGS: LUNGS: No active pulmonary disease. Shallow lung volumes PLEURA: No significant pleural effusion identified, no pneumothorax apparent. CARDIOVASCULAR: Probable top-normal heart size given inspiration OSSEOUS STRUCTURES: No significant abnormalities. VISUALIZED UPPER ABDOMEN: Normal. OTHER FINDINGS: None. IMPRESSION: No active disease.
[2016-07-12] MEDS ORDERED: Sodium Chloride 0.9% 100 ML IV SCH (14:08)
--- NOTE | 2016-07-12 14:27 | CP.PCM.CON ---
Addendum entered and electronically signed by Doreen Lanier DO 07/12/16 17:37 : NGT placed. Occult blood - vomitus sent. Per educational administration teacher, sister, pt has not been eating for days. Minimal water and ice tea only. 75cc brownish gastric content with fine residual came out. Original Note: <Doreen Lanier - Last Filed: 07/12/16 16:16> History of Present Illness - History of Present Illness History of Present Illness: PGY-[address] Vasquez ICU consult: DKA 35 years old male, with type 1 DM since 10 y/o, bed bound and chronic lópez after the 6th strokes (in 2013), Hx DVT, prior MA x 2, CHF, comes in for "not feeling well" x 4 days. Per sister, pt's POA, states that pt was not himself 4 days ago. He has decreased appetite, decrease PO intake, feeling warm, nauseated. Denies diarrhea, cloudy/blood in urine, vomiting, diarrhea, abdominal pain, coughs, chest pain, LOC, decreased urine output. Last bowel movement was unknown. Pt is a poor historian. Most history was given by POA. Upon ED arrival, tachycardia at 129, RR 22, 100 RA, 147/90. T 98.3 WBC 21, plt 524, Hb 11.6, Hct 36.1 K = 6.9l Bicarb = 9. BUN/Cre = 57/2.8, glucose 776, Gap = 28 VBG lactate 3.2 EKG: sinus tachycardia 126, peaked T waves in precordial, R heart strain tall R waves in V1-3; with Slurred S in I, Q waves in III, TWI in III. QTc 472 CXR: Elevated L hemidiaphragm, significantly changed from last imaging 1 month ago In ED, pt got 4L NS bolus. Insulin gtt x 3 hours, bicarb x 2 amp. 30 kayexalent. Ca++ gluconate, Vanc and Zosyn PMH Type 1 DM since 10 years old, diabetic neuropathy, diabetic retinopathy Strokes x 6 (last one in 2013) - residual effects: hemiplegia from waist down, bed bound, L sided weakness, legally blind, B&B incontinence on chronic lópez, forgetful Neurogenic bladder, Hx UTI MA x 2 (more than 3 years ago) - on ASA and plavix, no anticoagulant Vitreous hemorrhage 03/06/2016 CHF, (EF 60, Echo 2014) Hx DVT CKD, stage 3B HTN Chronic constipation; Hx colitis Anxiety PSH L eye surgery FH DM2, COPD, sarcoidosis, anxiety SH Past ETOH abuse, last drink 4 years ago, 5 beer/day Denies ever smoke and use illicit drugs Live with SVITLANA lopez educational administration teacher = 2 home-help aides, father, sister, and [id number] Pt can self feed and self administer insulin, but forgetful Dependent in all iADLs. Dependent in most ADLs, except feeding. All Sulfamethoxazole, trimethoprim Med ASA, plavix, Lasix 20, liniopril 10, labetalol Levemir 8 at night, Humalog 8u 1 time during the day Flomax Trazodome, sertraline, xanax flexerel, gabapentin, oxycodone PRN Miralax PRN synthroid, zofran, protonix, PMD Dr. Araseli Ruelas POSnow Sister, Michelle [phone] Past Patient History - Infectious Disease Hx of Infectious Diseases: None - Tetanus Immunizations Tetanus Immunization: Unknown - Past Medical History & Family History Past Medical History?: Yes - Past Social History Smoking Status: Never Smoked - CARDIAC Hx Heart Attack: Yes (x2) Hx Hypertension: Yes - PULMONARY Hx Respiratory Disorders: No - NEUROLOGICAL HX Cerebrovascular Accident: Yes (Multiple CVAs) - HEENT Hx HEENT Problems: Yes (wears glasses) Hx Macular Degeneration: Yes - RENAL Hx Chronic Kidney Disease: Yes Hx Pyelonephritis: Yes - ENDOCRINE/METABOLIC Hx Diabetes Mellitus Type 2: Yes Hx Hypothyroidism: Yes - HEMATOLOGICAL/ONCOLOGICAL Hx Blood Disorders: No - INTEGUMENTARY Hx Dermatological Problems: No - MUSCULOSKELETAL/RHEUMATOLOGICAL Hx Falls: Yes Other/Comment: 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 - GASTROINTESTINAL Hx Gastrointestinal Disorders: Yes (colitis, constipation at times) Hx Gastroesophageal Reflux: Yes - GENITOURINARY/GYNECOLOGICAL Hx Genitourinary Disorders: Yes Hx Incontinence: Yes (urine and stool) Hx Urinary Tract Infection: Yes Other/Comment: lópez - PSYCHIATRIC Hx Psychophysiologic Disorder: Yes Hx Anxiety: Yes Hx Depression: No Hx Emotional Abuse: No Hx Physical Abuse: No Hx Substance Use: No - SURGICAL HISTORY Hx Surgeries: No - ANESTHESIA Hx Anesthesia: Yes Hx Anesthesia Reactions: No Hx Malignant Hyperthermia: No Meds Allergies/Adverse Reactions: Allergies Allergy/AdvReac Type Severity Reaction Status Date / Time sulfamethoxazole Allergy ANAPHYLAXIS Verified 07/12/16 10:40 [From Bactrim] trimethoprim [From Bactrim] Allergy ANAPHYLAXIS Verified 07/12/16 10:40 - Medications Medications: Current Medications Alprazolam (Xanax) 0.5 mg PO BID [facility] PRN Reason: Protocol Aspirin (Ecotrin) 81 mg PO DAILY [facility] Last Admin: 07/12/16 13:58 Dose: 81 mg Cholecalciferol (Vitamin D) 2,000 iu PO DAILY [facility] Clopidogrel Bisulfate (Plavix) 75 mg PO DAILY [facility] Last Admin: 07/12/16 13:58 Dose: 75 mg Gabapentin (Neurontin) 600 mg PO TID [facility] PRN Reason: Protocol Sodium Chloride (Sodium Chloride 0.9%) 1,000 mls @ 100 mls/hr IV .Q10H STA Stop: 07/12/16 21:05 Insulin Human Regular 100 (units/ Sodium Chloride) 100 mls @ 3 mls/hr IV .Q24H PRN; Protocol; 3 UNITS/HR PRN Reason: TITRATE PER MD ORDER Last Admin: 07/12/16 12:44 Dose: 3 mls/hr Sodium Chloride (Sodium Chloride 0.9%) 1,000 mls @ 150 mls/hr IV .Q6H40M [facility] Labetalol HCl (Trandate) 200 mg PO BID [facility] Levothyroxine Sodium (Synthroid) 175 mcg PO DAILY [facility] Metoclopramide HCl (Reglan) 10 mg IVP Q6H [facility] Last Admin: 07/12/16 13:57 Dose: 10 mg Ondansetron HCl (Zofran Inj) 4 mg IVP Q4H PRN PRN Reason: Nausea/Vomiting Pantoprazole Sodium (Protonix Ec Tab) 40 mg PO DAILY [facility] Prednisolone Acetate (Pred Forte 1% Opht Susp) 0 ml OS QID [facility] Sertraline HCl (Zoloft) 50 mg PO DAILY [facility] Tamsulosin HCl (Flomax) 0.4 mg PO DAILY [facility] Last Admin: 07/12/16 13:58 Dose: 0.4 mg Trazodone HCl (Desyrel) 50 mg PO DAILY [facility] Physical Exam - Constitutional Appears: Chronically Ill - Head Exam Head Exam: ATRAUMATIC, NORMOCEPHALIC - Eye Exam Eye Exam: EOMI, Normal appearance, PERRL Pupil Exam: NORMAL ACCOMODATION - ENT Exam ENT Exam: Mucous Membranes Moist - Neck Exam Neck exam: Positive for: Normal Inspection. Negative for: Meningismus - Respiratory Exam Respiratory Exam: Clear to Auscultation Bilateral, NORMAL BREATHING PATTERN. absent: Decreased Breath Sounds, Rales, Rhonchi, Wheezes - Cardiovascular Exam Cardiovascular Exam: Tachycardia, +S1, +S2. absent: Systolic Murmur - GI/Abdominal Exam GI & Abdominal Exam: Normal Bowel Sounds, Soft. absent: Distended, Firm, Rigid - Extremities Exam Extremities exam: Positive for: pedal edema (slight pitting. wounds in toes, not draining), pedal pulses present Additional comments: lópez intact, urine clear, not cloudy, no blood - Back Exam Back exam: absent: CVA tenderness (L), CVA tenderness (R) - Neurological Exam Neurological exam: Alert, Motor Sensory Deficit (decrease sensation in distal limbs. motor 4+/5 upper extremities; motor 0/5 LE b/l) - Psychiatric Exam Psychiatric exam: Flat Affect - Skin Skin Exam: Dry, Warm Results - Vital Signs Recent Vital Signs: Last Vital Signs Temp 98.3 F 07/12/16 10:46 Pulse 128 H 07/12/16 13:38 Resp 18 07/12/16 13:38 BP 141/79 07/12/16 13:38 Pulse Ox 100 07/12/16 13:38 - Labs Result Diagrams: 07/12/16 11:30 07/12/16 11:55 Assessment & Plan - Assessment and Plan (Free Text) Plan: 35 years old male, with type 1 DM since 10 y/o, bed bound and chronic lópez after the 6th strokes (in 2013), Hx DVT, prior MA x 2, CHF, admitted to ICU for DKA likely from infection secondary to UTI and skipping levemir, r/o stroke, r/ o MA. EKG suspicious of PE. JOO on CKD 4 likely pre-renal due to dehydration from DKA/UTI and decrease PO intake. Pt was lethargic. CXR showed elevated L hemidiaphragm with prominent contained gastric bubbles. No vomiting observed. Neuro - Lethargic - Baseline AAOx3 - Aspiration precaution - Prednisolon, Polymyxin/Trimethoprim eye drop, L eye QID - Mood: sertraline 50 daily, Trazodone, Xanax 0.5 bid - Lower back pain: flexeril 10 TID, oxycodone 10 tid prn for lbp - Gabapentin 600 TID Cardio - Hx MA, resume asa, plavix, lisinopril 10, Labetalol 200 BID - HOLD lasix 20 - Trending Cardiac enzyme Pulm - Maintain SaO2 92-95% GI - NGT on LIS to decompress - Colace and Miralax PRN; Zofran 4q4 PRN; - NPO for now except PO meds - Protonix 40 po; Reglan 10 IVP PRN Renal - JOO on CKD - Pending uric acid to r/o intrinsic cause - IVF - flomax 0.4mg PO Endo - Pending A1C, Glycomark - Accu check, BMP q3, insulin gtt - Pending beta hydroxybutyate - synthroid 175 mcg daily - vit d3 Heme - Pending TSH/T4, Lipid panel, vitamin D - Pending B13, folate - Hypercoagulable work up: homocysteine Infectious - 3, 6 hour sepsis bundle - Received vanco and zosyn x 1 at ED Prophylasix - Heparin 5000 q8 - home protonix Dispo - poss LTC placement - PT/OT S/R/D/w Dr. Angelita Vasquez - Date & Time Date: 07/12/16 Time: 15:00 <Lucy Vasquez MD - Last Filed: 07/12/16 18:15> Meds - Medications Medications: Current Medications Alprazolam (Xanax) 0.5 mg PO BID [facility] PRN Reason: Protocol Last Admin: 07/12/16 18:08 Dose: Not Given Aspirin (Ecotrin) 81 mg PO DAILY [facility] Last Admin: 07/12/16 13:58 Dose: 81 mg Cholecalciferol (Vitamin D) 2,000 iu PO DAILY [facility] Last Admin: 07/12/16 16:45 Dose: Not Given Clopidogrel Bisulfate (Plavix) 75 mg PO DAILY [facility] Last Admin: 07/12/16 13:58 Dose: 75 mg Gabapentin (Neurontin) 600 mg PO TID [facility] PRN Reason: Protocol Last Admin: 07/12/16 18:08 Dose: Not Given Heparin Sodium (Porcine) (Heparin) 5,000 units SC Q8 [facility] PRN Reason: Protocol Last Admin: 07/12/16 16:23 Dose: 5,000 units Insulin Human Regular 100 (units/ Sodium Chloride) 100 mls @ 3 mls/hr IV .Q24H PRN; Protocol; 3 UNITS/HR PRN Reason: TITRATE PER MD ORDER Last Titration: 07/12/16 17:00 Dose: 6 units/hr, 6 mls/hr Sodium Chloride (Sodium Chloride 0.9%) 1,000 mls @ 150 mls/hr IV .Q6H40M [facility] Last Admin: 07/12/16 16:18 Dose: 150 mls/hr Ceftriaxone Sodium (Rocephin 2 Gm Ivpb) 2 gm in 100 mls @ 100 mls/hr IVPB DAILY [facility] PRN Reason: Protocol Labetalol HCl (Trandate) 200 mg PO BID [facility] Last Admin: 07/12/16 18:08 Dose: Not Given Levothyroxine Sodium (Synthroid) 175 mcg PO DAILY [facility] Last Admin: 07/12/16 16:40 Dose: Not Given Metoclopramide HCl (Reglan) 10 mg IVP Q6H [facility] Last Admin: 07/12/16 13:57 Dose: 10 mg Ondansetron HCl (Zofran Inj) 4 mg IVP Q4H PRN PRN Reason: Nausea/Vomiting Pantoprazole Sodium (Protonix Ec Tab) 40 mg PO DAILY [facility] Prednisolone Acetate (Pred Forte 1% Opht Susp) 0 ml OS QID [facility] Last Admin: 07/12/16 16:30 Dose: Not Given Sertraline HCl (Zoloft) 50 mg PO DAILY [facility] Last Admin: 07/12/16 16:45 Dose: Not Given Tamsulosin HCl (Flomax) 0.4 mg PO DAILY [facility] Last Admin: 07/12/16 13:58 Dose: 0.4 mg Trazodone HCl (Desyrel) 50 mg PO DAILY [facility] Results - Vital Signs Recent Vital Signs: Last Vital Signs Temp 99.1 F 07/12/16 17:13 Pulse 125 H 07/12/16 17:50 Resp 23 07/12/16 17:50 BP 183/108 H 07/12/16 17:13 Pulse Ox 99 07/12/16 17:50 - Labs Result Diagrams: 07/12/16 11:30 07/12/16 17:40 Labs: Laboratory Results - last 24 hr 07/12/16 07/12/16 07/12/16 14:19 14:19 14:19 pO2 VBG pH VBG pCO2 VBG HCO3 VBG Total CO2 VBG O2 Sat (Calc) VBG Base Excess VBG Potassium Sodium Chloride Glucose Lactate FiO2 Potassium Carbon Dioxide Anion Gap BUN Creatinine Est GFR ( Amer) Est GFR (Non-Af Amer) Random Glucose Lactic Acid 3.3 H Uric Acid 8.6 H Calcium Total Bilirubin AST ALT Alkaline Phosphatase Lactate Dehydrogenase Total Creatine Kinase Total Protein Albumin Globulin Albumin/Globulin Ratio Triglycerides 55 Cholesterol 198 LDL Cholesterol Direct 114 HDL Cholesterol 60 Free T4 1.59 Thyroxine (T4) 7.7 TSH 3rd Generation 1.72 Venous Blood Potassium Urine Color Urine Appearance Urine pH Ur Specific [place] Urine Protein Urine Glucose (UA) Urine Ketones Urine Blood Urine Nitrate Urine Bilirubin Urine Urobilinogen Ur Leukocyte Esterase Urine RBC Urine WBC Urine Bacteria Urine Other 07/12/16 07/12/16 07/12/16 17:00 17:40 17:40 pO2 38 VBG pH 7.20 L VBG pCO2 34.0 L VBG HCO3 13.3 L VBG Total CO2 14.3 L VBG O2 Sat (Calc) 72.5 H VBG Base Excess -13.7 L VBG Potassium 5.1 Sodium 141 141.0 Chloride 102 105.0 Glucose 610 H* Lactate 2.8 H FiO2 21.0 Potassium 4.8 Carbon Dioxide 12 L Anion Gap 32 H BUN 59 H Creatinine 3.0 H Est GFR ( Amer) 29 Est GFR (Non-Af Amer) 24 Random Glucose 585 H* D Lactic Acid Uric Acid Calcium 8.7 Total Bilirubin 0.7 AST 20 ALT 29 Alkaline Phosphatase 108 Lactate Dehydrogenase 451 Total Creatine Kinase 98 Total Protein 6.7 Albumin 3.5 Globulin 3.2 Albumin/Globulin Ratio 1.1 Triglycerides Cholesterol LDL Cholesterol Direct HDL Cholesterol Free T4 Thyroxine (T4) TSH 3rd Generation Venous Blood Potassium 5.1 Urine Color Yellow Urine Appearance Turbid Urine pH 6.0 Ur Specific [place] >= 1.030 Urine Protein >=300 H Urine Glucose (UA) >=1000 Urine Ketones 40 H Urine Blood Moderate H Urine Nitrate Negative Urine Bilirubin Small H Urine Urobilinogen 0.2 Ur Leukocyte Esterase Small H Urine RBC 5 - 10 Urine WBC 25 - 30 Urine Bacteria Few Urine Other Uyeast 07/12/16 17:40 pO2 VBG pH VBG pCO2 VBG HCO3 VBG Total CO2 VBG O2 Sat (Calc) VBG Base Excess VBG Potassium Sodium Chloride Glucose Lactate FiO2 Potassium Carbon Dioxide Anion Gap BUN Creatinine Est GFR ( Amer) Est GFR (Non-Af Amer) Random Glucose Lactic Acid 2.4 H Uric Acid Calcium Total Bilirubin AST ALT Alkaline Phosphatase Lactate Dehydrogenase Total Creatine Kinase Total Protein Albumin Globulin Albumin/Globulin Ratio Triglycerides Cholesterol LDL Cholesterol Direct HDL Cholesterol Free T4 Thyroxine (T4) TSH 3rd Generation Venous Blood Potassium Urine Color Urine Appearance Urine pH Ur Specific [place] Urine Protein Urine Glucose (UA) Urine Ketones Urine Blood Urine Nitrate Urine Bilirubin Urine Urobilinogen Ur Leukocyte Esterase Urine RBC Urine WBC Urine Bacteria Urine Other Attending/Attestation - Attestation I have personally seen and examined this patient.: Yes I have fully participated in the care of the patient.: Yes I have reviewed all pertinent clinical information: Yes Notes (Text): 07/12/16 18:12 35 y/o M w/ DKA AG MEt acidosis Joo on CKD Pre-renal dehydration Elevated WBC, r/o sepsis . Tachycardia, uncertain cause of sepsis or VTE Plan Empiric abx , cx to be sent NGT placed Change López After 5 L of N.S if tachycardia(sinus) is present and or hypoxia, would highly consider anticogaulation with heparin ggt. DKA protocol, Hyperkalemia treatment . Bicarbonate given. Q4 bmp labs. Repeat Lactate q6 hrs. Change IV fluids to D%1/5 ns at bs of 250. Calculate Levimir dosing before overlap of Insulin drip. DVT P Hep sq for now. cc time 72 min
[2016-07-12 14:36] LABS: CHOLESTEROL 198 mg/dL (130-200); URIC ACID 8.6 mg/dL (3.5-8.5)
[2016-07-12 14:56] LABS: FREE T4 1.59 ng/dL (0.78-2.19); T4 7.7 ug/dL (5.5-11.0)
[2016-07-12 15:09] LABS: THYROID STIMULATING HORMONE 1.72 mIU/mL (0.46-4.68)
--- NOTE | 2016-07-12 15:22 | CT ---
PROCEDURE: CT HEAD WITHOUT CONTRAST. HISTORY: AMS with 6 strokes COMPARISON: None available. TECHNIQUE: Axial computed tomography images were obtained through the head/brain without intravenous contrast. Radiation dose: Total exam DLP = 689 mGy-cm. This CT exam was performed using one or more of the following dose reduction techniques: Automated exposure control, adjustment of the mA and/or kV according to patient size, and/or use of iterative reconstruction technique. FINDINGS: HEMORRHAGE: No intracranial hemorrhage. BRAIN: No mass effect or edema. There is mild atrophy for this age group. VENTRICLES: Unremarkable. No hydrocephalus. CALVARIUM: Unremarkable. PARANASAL SINUSES: Unremarkable as visualized. No significant inflammatory changes. MASTOID AIR CELLS: Unremarkable as visualized. No inflammatory changes. OTHER FINDINGS: None. IMPRESSION: No acute findings
[2016-07-12] MEDS ORDERED: TETRACAINE/BENZOCAINE/BUTAMBEN 20 GM SPRAY TP ONE (15:45)
--- NOTE | 2016-07-12 15:54 | HP ---
The patient is a 35-year-old morbidly obese male who presented to the Emergency Room with 4-day compl aint of nausea, headache. The patient came to the Emergency Room by [facility]. The patient p resented with above as per the triage note. According to the ER physician's note, the patient presen andry with not feeling well, warm, associated with nausea with dry heaves. The patient's 13-system rev iew was positive for as dictated above. CODE STATUS: Full code. LIVING WILL AND ADVANCED DIRECTIVE: None. ALLERGIES: SULFAMETHOXAZOLE/____ (WHICH IS BACTRIM). FAMILY HISTORY: Positive for diabetes, obesity. PRESENT HOME MEDICATIONS: 1. ____ acetate (Pred Forte). 2. Polymyxin ____ eyedrops. 3. Trazodone 150 mg daily. 4. Zofran ODT 4 mg. 5. Labetalol (Trandate) 200 mg twice a day. 6. Neurontin 600 mg 3 times a day. 7. Xanax 0.5 mg twice a day. 8. Flomax 0.4 mg daily. 9. Protonix 40 mg daily. 10. Synthroid 175 mcg daily. 11. Oxycodone IR (immediate release) 10 mg 3 times a day p.r.n. 12. Zoloft 50 mg daily. 13. Plavix 75 mg daily. 14. Vitamin D3 2000 units daily. 15. Zestril 10 mg daily. 16. Ecotrin 81 mg daily. 17. Lasix 20 mg daily. 18. Flexeril 10 mg 3 times a day. PAST MEDICAL AND SURGICAL HISTORY: Significant for morbid obesity, history of cerebrovascular accide nt, history of myocardial infarction, history of angioplasty, history of diabetes mellitus, history o f hypertension, history of multiple strokes, history of myocardial infarction, history of diabetic ne uropathy, history of morbid obesity, history of hypertension, history of atonic neurogenic bladder, h istory of insomnia, history of depression, history of hypertension, history of diabetic neuropathy, h istory of anxiety, history of hypothyroidism, history of morbid obesity, history of hypovitaminosis D , history of coronary artery disease, history of dyslipidemia, history of hypertension, history of di abetes mellitus, history of hypothyroidism, history of colitis, history of constipation, history of g astroesophageal reflux, history of urinary tract infection, history of urinary incontinence, history of hematuria, history of diabetic retinopathy with macular degeneration, history of both foot and fin briana fracture, history of rotator cuff surgery, history of gait dysfunction and wheelchair bound, hist ory of possible paraplegia, history of multiple CVAs, history of paralysis, history of anxiety disord er, history of MRSA, history of gait dysfunction, history of hypothyroidism, history of morbid obesit y, history of diabetic ketoacidosis, history of pyelonephritis, history of postconcussion syndrome, h istory of intractable back pain, history of diabetic ketoacidosis, history of cerebral infarct, histo ry of chronic kidney disease, history of anemia, history of uncontrolled diabetes mellitus with eleva andry hemoglobin A1c, history of hypothyroidism, history of hypercholesterolemia, history of hypertrigl yceridemia, history of hyperprocalcitoninemia, history of myocardial infarction, history of proteinur ia and hematuria. The patient's past medical history is significant for urinary tract infection, his tory of bacteremia, MRSA ____, history of MRSA UTI, history of Klebsiella urinary tract infection, hi story of funguria, history of enterococcus urinary tract infection, history of gait dysfunction, hist ory of possible multiple sclerosis, history of extensive periventricular white matter disease of the brain. The patient's past medical history is significant for history of constipation, history of fec al retention, history of questionable proctitis, history of neurogenic bladder, history of gait dysfu nction, history of cerebral infarct, history of right parietal operculum infarct, history of hyperten kaya, history of normal left ventricular ejection fraction, history of concentric left ventricular hy pertrophy, history of vitreous hemorrhage, history of retinal hemorrhage, history of uncontrolled hyp ertension; history of diabetic retinopathy, diabetic nephropathy, diabetic neuropathy; history of gai t dysfunction and wheelchair bound, history of multiple cerebral accidents, history of pyelonephritis , history of coronary artery disease. PHYSICAL EXAMINATION: GENERAL: The patient is seen in bed 18 with patient's sister at bedside. The patient is lying in th e bed. The patient is alert, awake. VITAL SIGNS: T-max 98.3; heart rate 129, 128, 126; blood pressure 145/86, 141/79; respirations 22, O 2 sat 100%. HEAD: Normocephalic, atraumatic. HEENT: Shows pinkish, pale conjunctivae, dry oral mucosa. NECK: No neck rigidity. CHEST: Symmetrical. LUNGS: Show occasional rhonchi. CARDIOVASCULAR: Shows S1, S2, ____ rhythm, ____ rhythm. ABDOMEN: Obese, positive bowel sounds. GENITALIA: Male. Positive Lira catheter. EXTREMITIES: Shows trace swelling of the lower extremity. Appears to be poor nail hygiene. MUSCULOSKELETAL: Shows a body mass index of 41. HEIGHT: 5 feet 6 inches. WEIGHT: 250. PSYCHIATRIC: Positive for history of anxiety, depression, chronic back pain syndrome. DIAGNOSTICS: WBC 21,000, hemoglobin and hematocrit 11.6 and 36.1, platelets 524, granulocytes 89% se gs. PT, PTT is normal at 10.8 and 27.4. VBG: pH of 7.15, pCO2 25, pO2 47, potassium 7.8, glucose g reater than 750. Sodium 135, potassium 6.9, chloride 98, CO2 9, anion gap 35, BUN 57, creatinine 2.8 , GFR 31, glucose 776. LFTs are normal. Troponin 0.08. Chest x-ray was negative for any pneumonia. EKG shows sinus tachycardia. Q-wave in III. Peaked T w aves noted. The patient was seen in the Emergency Room by Dr. Bustillo, the ER physician. The patient's treatme nt in the Emergency Room was initiated by Dr. Bustillo with IV fluid; treatment for hyperkalemia was initiated. The patient was given IV fluid. IV insulin drip was started. The patient was given bic arbonate. The patient was continued on the IV fluid. The patient's admission was called into ICU by Dr. Bustillo. The patient is seen with the ICU medical clinic manager. Most of the history is given by the patient's sister. IMPRESSION: 1. Acute diabetic ketoacidosis with uncontrolled diabetes and hyperglycemia. 2. Non-hemolyzed hyperkalemia. 3. Increased anion gap metabolic acidosis. 4. Acute renal failure. 5. Uncontrolled diabetes mellitus with diabetic ketoacidosis, nonhemolyzed hyperkalemia and severe h yperglycemia. 6. Questionable sepsis with leukocytosis and granulocytosis. 7. Normocytic anemia. 8. Thrombocytosis. 9. Sinus tachycardia. 10. History of obesity, history of ____ diabetes mellitus, history of insomnia, history of depressio n, history of hypertension, history of diabetic neuropathy, history of anxiety disorder, history of n eurogenic bladder, history of hypothyroidism, history of chronic back pain syndrome, history of depr ession, history of cerebrovascular accident, history of hypovitaminosis D, history of hypertension, h istory of obesity, history of gait dysfunction, history of questionable paraplegia. PLAN: At this time, the patient is to be admitted to intensive care unit. The patient has been orde red thyroid panel, hemoglobin A1c, lactic acid, procalcitonin level, serial labs. Repeat labs ordere d. Blood cultures ordered. Urine culture has been ordered also. The patient has been ordered endocr inology, infectious disease, nephrology, podiatry and psychiatry consultation. The patient has been given calcium gluconate. Most of the patient's home medications started. The patient is continued o n insulin drip. Kayexalate is given. The patient was resumed on DVT and GI prophylaxis. The patien t was started on prokinetics. The patient has been given Zosyn 3.375 and vancomycin 1 gram in the ER . At this time, the patient was seen in the Emergency Room. The patient is awaiting for an ICU bed. The patient's further management will be dependent upon the patient's clinical condition, hemodynam ic status, and as per patient's response to therapeutic intervention, as per patient's diagnostic sebastián t results and as per recommendation by all the physicians involved in the care of the patient. The jerilyn [facility] has been admitted multiple times to [facility]. The patient's prognosis appeared to be guarded to poor. CONDITION: Critical. TIME SPENT IN THE ENTIRE MANAGEMENT: More than 1 hour 55 minutes. The patient's condition overall guarded prognosis, critical condition explained and discussed with thiago vaughn patient's sister at length. All questions and concerns answered. Dictated and electronically signed; not read. Mikey Zhang MD cc: [id number] TT: 07/12/2016 15:46:35 mn 07/12/2016 14:53:43
--- NOTE | 2016-07-12 15:58 | CP.PCM.CON ---
History of Present Illness - History of Present Illness History of Present Illness: Initial Nephrology Consultation: Assessment: severe HAGMA with metabolic alkalosis with respi compensation [due to diabetic ketoacidosis] associated with hyperkalemia (due to combination of CKD, hyperglycemia/DKA and acidosis) Acute Kidney Injury likely due to Hyperglycemia and dehydration Chronic Kidney Disease Stage 4 with 10 gm proteinuria likely due to diabetic nephropathy, atrophic Rt Kidney, hx of recurrent CLIFTON chronic Anemia, Hypertension, hx of CVA, CAD, chronic indwelling lópez Plan No acute need for renal replacement therapy at this time. Most likely, serum K will be better with IV fluid, insulin and glycemic control Hypertension control with meds as ordered. Patient at home on lisinopril and lasix: hold both Monitor I/O, daily weights and renal function. check BMP, mag and phos q4-6 hours. Check urine analysis, spot protein/creatinine and albumin/creatinine ratio continue with IVF as normal saline. can defer further IV bicarb as acidosis expected to improve Dose meds/antibiotics for reduced GFR 25-30. Avoid fleets enema/magnesium based laxatives. Avoid nephrotoxins/NSAIDs/ iodinated contrast (unless needed emergently) Glycemic control, renal diet Further work up for as per primary team. discussed with resident d/w sister bedside Thanks for allowing me to participate in care of your patient. Will follow patient with you. Please call if any Qs Dr Artis Mendoza Office: [phone] Chief Complaint; high sugar HPI: Pt is a 35 y/o M with hx of type I diabetes Mellitus ( x 25 years) with associated retinopathy, neuropathy and likely diabetic nephropathy, CKD stage 4 with nephrotic syndrome (10 gram proteinuria and baseline cr 2-2.5), hx of CLIFTON, chronic urine incontinence and chronic indwelling lópez changes every month, hx of CVA, bedbound status (non ambulatory) presented with complaints of lethargy, high sugar and decreased oral intake, found to be in severe DKA Denies chest pain, palpitation, shortness of breath, reports leg swelling Denies OTC/herbal meds but takes motrin 800 PRN No recent iodinated contrast exposure. No obvious episodes of low BP. ROS: limited and unreliable due to his confusion Constitutional Symptoms: Denies fever. No chills. Eyes: chronic decreased vision Ears/Nose/Mouth/Throat: Denies Abnormal Taste. Cardiovascular: No chest pain. There is no shortness of breath. No palpitations. Pulmonary: No shortness of breath or cough. c/o low back pain, vomitting Physical Examination: chronically ill appearing and debilitated General Appearance: Comfortable, in no acute respiratory distress, co- operative. Vitals reviewed and noted as below Head; Atraumatic, normocephalic ENT: no ulcers no thrush. Tongue is midline but coated. Oropharynx: no rash or ulcers. EYES: Pupils are equal, round and reactive to light accommodation. Eye muscles and extraocular movement intact. Sclera is anicteric. Neck; supple no lymphadenopathy, no thyromegaly or bruit Lungs: Normal respiratory rate/effort. Breath sounds clear and bilateral equal Heart: Normal rate. s1s2 normal. No rub or gallop. Extremities: no edema. No varicose veins Neurological: Patient is alert, awake and disoriented chronic leg paresis Skin: dry and somewhat cool to touch. Normal turgor. No rash. Palpitation: Normal elasticity for age Abdomen: Abdomen is soft. Bowel sounds +. There is no abdominal tenderness, no guarding/rigidity or organomegaly Psych: unable MSK: no joint tenderness or swelling. Digits and nails normal, no deformity : kidney or bladder not palpable. has lópez catheter changed in ER Labs/imaging/EKG reviewed. Past medical history, past surgical history, family history, social history, allergy reviewed and noted as below 2015 renal sono: Rt kidney atrophic 7 cm and left kidney hypertrophy GN work up as C3, C4, DINA, Anti dsDNA, ANCA, Hep B and Hep C serology has been neg in past UA 3+ protein with small to moderate blood (has chronic lópez) and 10 gram proteinuria on spot pro/cr ratio uric acid 8.6 and CK 80 Past Patient History - Infectious Disease Hx of Infectious Diseases: None - Tetanus Immunizations Tetanus Immunization: Unknown - Past Medical History & Family History Past Medical History?: Yes - Past Social History Smoking Status: Never Smoked - CARDIAC Hx Heart Attack: Yes (x2) Hx Hypertension: Yes - PULMONARY Hx Respiratory Disorders: No - NEUROLOGICAL HX Cerebrovascular Accident: Yes (Multiple CVAs) - HEENT Hx HEENT Problems: Yes (wears glasses) Hx Macular Degeneration: Yes - RENAL Hx Chronic Kidney Disease: Yes Hx Pyelonephritis: Yes - ENDOCRINE/METABOLIC Hx Diabetes Mellitus Type 2: Yes Hx Hypothyroidism: Yes - HEMATOLOGICAL/ONCOLOGICAL Hx Blood Disorders: No - INTEGUMENTARY Hx Dermatological Problems: No - MUSCULOSKELETAL/RHEUMATOLOGICAL Hx Falls: Yes Other/Comment: 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 - GASTROINTESTINAL Hx Gastrointestinal Disorders: Yes (colitis, constipation at times) Hx Gastroesophageal Reflux: Yes - GENITOURINARY/GYNECOLOGICAL Hx Genitourinary Disorders: Yes Hx Incontinence: Yes (urine and stool) Hx Urinary Tract Infection: Yes Other/Comment: lópez - PSYCHIATRIC Hx Psychophysiologic Disorder: Yes Hx Anxiety: Yes Hx Depression: No Hx Emotional Abuse: No Hx Physical Abuse: No Hx Substance Use: No - SURGICAL HISTORY Hx Surgeries: No - ANESTHESIA Hx Anesthesia: Yes Hx Anesthesia Reactions: No Hx Malignant Hyperthermia: No Meds Allergies/Adverse Reactions: Allergies Allergy/AdvReac Type Severity Reaction Status Date / Time sulfamethoxazole Allergy ANAPHYLAXIS Verified 07/12/16 10:40 [From Bactrim] trimethoprim [From Bactrim] Allergy ANAPHYLAXIS Verified 07/12/16 10:40 - Medications Medications: Current Medications Alprazolam (Xanax) 0.5 mg PO BID [facility] PRN Reason: Protocol Aspirin (Ecotrin) 81 mg PO DAILY [facility] Last Admin: 07/12/16 13:58 Dose: 81 mg Cholecalciferol (Vitamin D) 2,000 iu PO DAILY [facility] Clopidogrel Bisulfate (Plavix) 75 mg PO DAILY [facility] Last Admin: 07/12/16 13:58 Dose: 75 mg Gabapentin (Neurontin) 600 mg PO TID [facility] PRN Reason: Protocol Heparin Sodium (Porcine) (Heparin) 5,000 units SC Q8 [facility] PRN Reason: Protocol Sodium Chloride (Sodium Chloride 0.9%) 1,000 mls @ 100 mls/hr IV .Q10H STA Stop: 07/12/16 21:05 Last Admin: 07/12/16 14:21 Dose: Not Given Insulin Human Regular 100 (units/ Sodium Chloride) 100 mls @ 3 mls/hr IV .Q24H PRN; Protocol; 3 UNITS/HR PRN Reason: TITRATE PER MD ORDER Last Admin: 07/12/16 12:44 Dose: 3 mls/hr Sodium Chloride (Sodium Chloride 0.9%) 1,000 mls @ 150 mls/hr IV .Q6H40M [facility] Labetalol HCl (Trandate) 200 mg PO BID [facility] Levothyroxine Sodium (Synthroid) 175 mcg PO DAILY [facility] Metoclopramide HCl (Reglan) 10 mg IVP Q6H [facility] Last Admin: 07/12/16 13:57 Dose: 10 mg Ondansetron HCl (Zofran Inj) 4 mg IVP Q4H PRN PRN Reason: Nausea/Vomiting Pantoprazole Sodium (Protonix Ec Tab) 40 mg PO DAILY [facility] Prednisolone Acetate (Pred Forte 1% Opht Susp) 0 ml OS QID [facility] Sertraline HCl (Zoloft) 50 mg PO DAILY [facility] Tamsulosin HCl (Flomax) 0.4 mg PO DAILY [facility] Last Admin: 07/12/16 13:58 Dose: 0.4 mg Trazodone HCl (Desyrel) 50 mg PO DAILY [facility] Results - Vital Signs Recent Vital Signs: Last Vital Signs Temp 98.3 F 07/12/16 10:46 Pulse 127 H 07/12/16 14:17 Resp 18 07/12/16 14:17 BP 138/71 07/12/16 14:17 Pulse Ox 100 07/12/16 14:17 - Labs Result Diagrams: 07/12/16 11:30 07/12/16 11:55 Labs: Laboratory Results - last 24 hr 07/12/16 07/12/16 07/12/16 14:19 14:19 14:19 Lactic Acid 3.3 H Uric Acid 8.6 H Triglycerides 55 Cholesterol 198 LDL Cholesterol Direct 114 HDL Cholesterol 60 Free T4 1.59 Thyroxine (T4) 7.7 TSH 3rd Generation 1.72
--- NOTE | 2016-07-12 16:11 | US ---
HISTORY: Leg pain and swelling. Evaluate for DVT PHYSICIAN(S): Andriy Gomez MD. TECHNIQUE: Duplex sonography and color-flow Doppler with graded compression were used to evaluate the deep venous systems of both lower extremities. FINDINGS: The visualized deep venous systems of both lower extremities are sonographically normal and compressible. Normal wave forms and augmentation are seen. There is no sonographic evidence for deep venous thrombosis in the visualized segments of both lower extremities. IMPRESSION: No sonographic evidence for deep venous thrombosis in the visualized segments of both lower extremities.
[2016-07-12] MEDS: Sodium Chloride 0.9% 1,000 ML IV SCH (16:18)
[2016-07-12] MEDS: PrednisoLONE 1% Opht Susp(5 ml) OS SCH ×2 (16:30→18:19)
[2016-07-12] MEDS: Levothyroxine 175 MCG TAB PO SCH (16:40)
[2016-07-12 17:29] VITALS: BMI 39.0
[2016-07-12 17:50] LABS: VENOUS BLOOD GAS BASE EXCESS -13.7 mmol/L (0.0-2.0)
[2016-07-12 17:59] LABS: ALB/GLOB RATIO 1.1 (1.1-1.8); BILIRUBIN,TOTAL 0.7 mg/dL (0.2-1.3); CALCIUM 8.7 mg/dL (8.4-10.5); POTASSIUM 4.8 mmol/L (3.6-5.0); TOTAL PROTEIN 6.7 g/dL (5.8-8.3)
[2016-07-12 18:04] LABS: URINE APPEARANCE TURBID (CLEAR); URINE BILIRUBIN SMALL (NEGATIVE); URINE BLOOD MODERATE (NEGATIVE); URINE COLOR YELLOW (YELLOW); URINE GLUCOSE (UA) >=1000 mg/dL (NEGATIVE); URINE KETONE 40 mg/dL (NEGATIVE); URINE LEUKOCYTE ESTERASE SMALL Leu/uL (NEGATIVE); URINE PROTEIN >=300 mg/dL (<30 mg/dL); URINE UROBILINOGEN 0.2 E.U./dL (<1 E.U./dL)
[2016-07-12 18:10] LABS: URINE BACTERIA FEW (NEG); URINE WBC 25 - 30 /hpf (0-6)
[2016-07-12 18:11] LABS: TROPONIN I 0.13 ng/mL
[2016-07-12] MEDS ORDERED: Labetalol 5 mg/ml Inj 20ML IV STA (18:37)
--- NOTE | 2016-07-12 18:45 | CARD ---
APPROVED REPORT EKG Measurement Heart [id number] [id number] <Conclusion> Sinus tachycardia Nonspecific ST abnormality Abnormal ECG
[2016-07-12] MEDS ORDERED: cefTRIAXone 2 GM IN NS 2 GM/100 ML BAG IVPB SCH (19:00)
--- NOTE | 2016-07-12 21:07 | CON ---
DATE: 07/12/2016 LOCATION: ER holding 129, room 1. He is going to ICU. HISTORY OF PRESENT ILLNESS: This is a 35-year-old male with known history of type 1 insulin-dependen t diabetes on a basal and bolus insulin drug combination, presenting here with generalized body weakn ess and supervening hyperglycemic accelerations and has been evaluated to be in diabetic ketoacidosis and is referred now for diabetic evaluation and management. PAST MEDICAL HISTORY: As mentioned above, history of type 1 insulin-dependent diabetes since early c connie, about age 10, as noted, history of hypertensive cardiovascular disease and dyslipidemia, hi story of diabetic retinopathy, polyneuropathy and nephropathy, history of coronary artery disease wit h previous myocardial infarctions, currently on Plavix and aspirin medications, history of congestive heart failure with previous admissions for the same, history of deep vein thrombosis as noted, histo ry of generalized sarcoidosis, but apparently is not on any kind of medications at this time, history of chronic obstructive lung disease, history of generalized anxiety and depression on psychotropic m edications, history of cerebrovascular disease with multiple strokes occurring over the last 10 years . The last one was in 2013 and the patient is actually bedbound with left-sided weakness with ongoin g incontinence of both bladder and bowel with a chronic Lira catheter in place. He also has a signi ficant history of autonomic neuropathy with neurogenic bladder and recurrent UTIs as noted. The keith ent is actually legally blind at this time as noted. History of chronic habitual constipation with p rior colitis and diverticulitis. FAMILY HISTORY: Positive for diabetes and hypertension. SOCIAL HISTORY: The patient admits to chronic alcoholism and drinks several cans of beer every few d ays as noted. No other known substance use. The patient has a very supportive family and lives with his sister and has caretakers also at home, plus the family members are very attentive to his care. He is able to self-administer his own insulin with no recent glucose monitoring undertaken otherwise . He is able to self-feed his own meals as noted. REVIEW OF SYSTEMS: As mentioned above, admits to generalized body weakness with easy fatigability an d tiredness and suboptimal energy level. Also admits to episodic dizziness and lightheadedness, wors e on the day of admission. No chest pains or palpitations, but admits to shortness of breath, especi ally on exertion with marked fatigability also on exertion. His oral intake is quite variable with n ausea, dyspepsia and episodic vomiting episodes. Also admits to habitual constipation. PHYSICAL EXAMINATION: GENERAL: This is an overweight male, in no apparent distress. VITAL SIGNS: Blood pressure of 150/90, pulse of 100 beats per minute and regular, temperature 99, re spirations 20. Height is 5 feet 6 inches, weight is 250 pounds. HEENT: Head normocephalic. Eyes anicteric with pink conjunctivae. Fundoscopy not possible at this time. Ears, nose and throat otherwise normal. NECK: Supple. Thyroid gland is normal size. No carotid bruits. No cervical adenopathy. CARDIOPULMONARY: Some adynamic precordium. S1, S2 is rapid and regular. LUNGS: Clear to auscultation. ABDOMEN: Obese, soft with positive bowel sounds. EXTREMITIES: No peripheral edema. Pulses are +2 bilaterally. LABORATORY DATA: Chemistries showed a BUN of 57, sodium 135, potassium 6.9, chloride 98, CO2 9, gluc ose 776, and creatinine 2.8, uric acid is 8.6 with a lactic acid of 3.3. His TSH is 1.72. ASSESSMENT: This is a 35-year-old male with uncontrolled and decompensated type 1 insulin-dependent diabetes, presenting here with diabetic ketoacidosis and dehydration with diabetic microvascular comp lications of retinopathy, whereupon he is legally blind, diabetic polyneuropathy and diabetic nephrop athy with underlying chronic kidney disease. He also has diabetic macrovascular complications of cor onary artery disease and peripheral arterial disease and vasculopathy. He has a significant history of cerebrovascular disease with multiple stroke events at this time with underlying diabetic autonomi c neuropathy and neurogenic bladder with a Lira catheter in place as noted. PLAN OF MANAGEMENT: As discussed with the patient and the staff, we will continue the insulin drip i nfusion as ordered and once his CO2 is above 15-18, then we will start him on a basal and bolus insul in regimen as indicated to optimize metabolic control. We will also obtain a hemoglobin A1c to confi rm his prior glycemic control and baseline thyroid function studies will be ordered. We will also be switching him over to a combination of Levemir at bedtime and Humalog with each meal as indicated af ter the initiation of the aforementioned therapy. We will follow. Lexus Valdovinos MD cc: [id number] TT: 07/12/2016 21:07:09 Confirmation # [id number] Dictation # [id number] rn
[2016-07-12] MEDS: Meropenem 1g/NS 100mL IVPB 1 GM/100 ML PIGGYBACK IVPB SCH (21:21)
[2016-07-12] MEDS ORDERED: Piperacillin/Tazobact 2.25gm 2.25 GM/100 ML BAG IVPB SCH (22:00)
[2016-07-12 22:03] LABS: CALCIUM 8.2 mg/dL (8.4-10.5); POTASSIUM 4.3 mmol/L (3.6-5.0)
[2016-07-12 22:10] LABS: FOLATE > 20.0 ng/mL
[2016-07-13] MEDS: Sodium Chloride 0.9% 1,000 ML IV SCH (00:21)
[2016-07-13 01:02] LABS: ALB/GLOB RATIO 1.1 (1.1-1.8); BILIRUBIN,TOTAL 0.7 mg/dL (0.2-1.3); CALCIUM 8.5 mg/dL (8.4-10.5); POTASSIUM 3.8 mmol/L (3.6-5.0); TOTAL PROTEIN 6.8 g/dL (5.8-8.3)
[2016-07-13 01:18] LABS: TROPONIN I 0.4 ng/mL
[2016-07-13] MEDS: Labetalol 5 mg/ml Inj 20ML IV PRN ×2 (01:26→22:52)
[2016-07-13] MEDS: Potassium Ch 20mEq in D5-1/2NS 1,000 ML IV SCH ×3 (02:55→16:47)
[2016-07-13 05:40] LABS: ADD MANUAL DIFF? NO; BASO # 0.07 K/mm3 (0.0-2.0); BASO % 0.4 % (0.0-3.0); EOS # 0.2 (0.0-0.7); EOS % 0.9 % (1.5-5.0); GRAN # 13.14 (1.4-6.5); GRAN % 73.5 % (50.0-68.0); HEMATOCRIT 31.2 % (42.0-52.0); LYMPH # 2.5 (1.2-3.4); LYMPH % 13.8 % (22.0-35.0); MEAN CORPUSCULAR HEMOGLOBIN 28.9 pg (25.0-35.0); MEAN CORPUSCULAR HGB CONC 33.7 g/dl (31.0-37.0); MEAN PLATELET VOLUME 10.4 fl (7.0-11.0); MONO % 11.4 % (1.0-6.0); PLATELET COUNT 317 10^3/uL (120.0-450.0); RED CELL DISTRIBUTION WIDTH 13.9 % (11.5-14.5); WHITE BLOOD COUNT 17.9 10^3/ul (4.5-11.0)
[2016-07-13 06:02] LABS: BILIRUBIN,DIRECT 0.5 mg/dL (0.0-0.4)
[2016-07-13 06:19] LABS: ALB/GLOB RATIO 0.9 (1.1-1.8); BILIRUBIN,TOTAL 0.5 mg/dL (0.2-1.3); CALCIUM 7.9 mg/dL (8.4-10.5); PHOSPHOROUS 4.5 mg/dL (2.5-4.5); POTASSIUM 3.5 mmol/L (3.6-5.0)
--- NOTE | 2016-07-13 06:19 | CP.PCM.PN ---
Subjective - Date & Time of Evaluation Date of Evaluation: 07/13/16 Time of Evaluation: 06:18 - Subjective Subjective: Blood drawn from right femoral vein for AM labs. Instructed nurse to apply manual pressure. Dx:Poor venous access. Objective - Vital Signs/Intake and Output Vital Signs (last 24 hours): Temp Pulse Resp BP Pulse Ox 99.6 F 99 H 27 H 163/83 H 96 07/13/16 01:19 07/13/16 05:50 07/13/16 05:50 07/13/16 05:47 07/13/16 05:00 Intake and Output: 07/12/16 07/13/16 18:59 06:59 Intake Total 4680 21.5 Output Total 100 Balance 4580 21.5 - Medications Medications: Current Medications Acetaminophen (Tylenol 325mg Tab) 650 mg PO Q6H PRN PRN Reason: Headache Last Admin: 07/13/16 01:19 Dose: 650 mg Alprazolam (Xanax) 0.5 mg PO BID [facility] PRN Reason: Protocol Last Admin: 07/12/16 18:08 Dose: Not Given Aspirin (Ecotrin) 81 mg PO DAILY [facility] Last Admin: 07/12/16 13:58 Dose: 81 mg Cholecalciferol (Vitamin D) 2,000 iu PO DAILY [facility] Last Admin: 07/12/16 16:45 Dose: Not Given Clopidogrel Bisulfate (Plavix) 75 mg PO DAILY [facility] Last Admin: 07/12/16 13:58 Dose: 75 mg Gabapentin (Neurontin) 600 mg PO TID [facility] PRN Reason: Protocol Last Admin: 07/12/16 18:08 Dose: Not Given Heparin Sodium (Porcine) (Heparin) 5,000 units SC Q8 [facility] PRN Reason: Protocol Last Admin: 07/13/16 00:11 Dose: 5,000 units Insulin Human Regular 100 (units/ Sodium Chloride) 100 mls @ 3 mls/hr IV .Q24H PRN; Protocol; 3 UNITS/HR PRN Reason: TITRATE PER MD ORDER Last Titration: 07/13/16 05:00 Dose: 1.5 units/hr, 1.5 mls/hr Meropenem 1g/NS 100mL IVPB (Meropenem 1g/Ns 100ml Ivpb) 1 gm in 100 mls @ 100 mls/hr IVPB Q12 [facility] PRN Reason: Protocol Stop: 07/19/16 19:59 Last Admin: 07/12/16 21:21 Dose: 100 mls/hr Potassium Chloride/Dextrose/Sod Cl (Potassium Chl 20 Meq In D5-1/2ns) 1,000 mls @ 150 mls/hr IV .Q6H40M [facility] Last Admin: 07/13/16 02:55 Dose: 150 mls/hr Labetalol HCl (Trandate) 200 mg PO BID [facility] Last Admin: 07/12/16 18:08 Dose: Not Given Labetalol HCl (Trandate) 10 mg IV Q6 PRN PRN Reason: Heart rate Last Admin: 07/13/16 01:26 Dose: 10 mg Levothyroxine Sodium (Synthroid) 175 mcg PO DAILY [facility] Last Admin: 07/12/16 16:40 Dose: Not Given Metoclopramide HCl (Reglan) 10 mg IVP Q6H [facility] Last Admin: 07/13/16 02:34 Dose: 10 mg Ondansetron HCl (Zofran Inj) 4 mg IVP Q4H PRN PRN Reason: Nausea/Vomiting Last Admin: 07/12/16 18:19 Dose: 4 mg Pantoprazole Sodium (Protonix Ec Tab) 40 mg PO DAILY [facility] Prednisolone Acetate (Pred Forte 1% Opht Susp) 0 ml OS QID [facility] Last Admin: 07/13/16 00:00 Dose: 1 drop Sertraline HCl (Zoloft) 50 mg PO DAILY [facility] Last Admin: 07/12/16 16:45 Dose: Not Given Tamsulosin HCl (Flomax) 0.4 mg PO DAILY [facility] Last Admin: 07/12/16 13:58 Dose: 0.4 mg Trazodone HCl (Desyrel) 50 mg PO DAILY [facility] - Labs Labs: 07/13/16 05:00 07/13/16 00:20 PT 10.8 Seconds (9.9-11.8) 07/12/16 11:55 INR 1.00 (0.93-1.08) 07/12/16 11:55 APTT 27.4 Seconds (23.7-30.8) 07/12/16 11:55
[2016-07-13 06:29] LABS: VENOUS BLOOD GAS BASE EXCESS -4.2 mmol/L (0.0-2.0); VENOUS BLOOD PH 7.35 (7.32-7.43)
[2016-07-13 06:36] LABS: HOMOCYSTEINE 12.2 umol/L (<11.4)
[2016-07-13 06:43] LABS: TROPONIN I 0.33 ng/mL
[2016-07-13] MEDS ORDERED: Potassium Chloride 40 mEq/30 ml LIQ UD PO ONE (07:21)
--- NOTE | 2016-07-13 08:23 | RAD ---
HISTORY: NGT placement COMPARISON: 07/12/2016 FINDINGS: LUNGS: No active pulmonary disease. PLEURA: No significant pleural effusion identified, no pneumothorax apparent. CARDIOVASCULAR: Normal. OSSEOUS STRUCTURES: No significant abnormalities. VISUALIZED UPPER ABDOMEN: Normal. OTHER FINDINGS: None. IMPRESSION: The nasogastric tube is in satisfactory position
[2016-07-13 09:13] LABS: CALCIUM 7.9 mg/dL (8.4-10.5); POTASSIUM 3.9 mmol/L (3.6-5.0)
[2016-07-13] MEDS ORDERED: Ergocalciferol 50,000 Intl Units Cap PO SCH (09:15)
--- NOTE | 2016-07-13 09:26 | CP.CCUPN ---
CCU Subjective - Physician Review Events Since Last Encounter (Free Text): 07/13/16 09:18 Gap improves, remained open On D5/half NS Pending PICC (+) Nausea (+) cough with white sputum, difficulty breathing in. Onset Sat Denies CP, SOB, D/C CCU Objective - Vital Signs / Intake & Output Vital Signs (Last 4 hours): Vital Signs Pulse Resp BP Pulse Ox 07/13/16 06:40 100 H 20 97 07/13/16 06:30 98 H 07/13/16 06:20 101 H 24 07/13/16 06:10 103 H 25 H 07/13/16 06:00 99 H 17 160/81 H 07/13/16 05:50 99 H 27 H 07/13/16 05:47 97 H 18 163/83 H 07/13/16 05:40 94 H 18 07/13/16 05:30 101 H 17 07/13/16 05:29 98 H 17 181/91 H 07/13/16 05:20 97 H 23 Intake and Output (Last 8hrs): Intake & Output 07/12/16 07/13/16 07/13/16 22:59 06:59 14:59 Intake Total 4690 1883.0 8 Output Total 100 400 Balance 4590 1483.0 8 Weight 242 lb Intake: IV 490 1833.0 8 RIGHT THUMB 18 20 Right Antecubital 450 1800 Oral 0 50 Other 4200 Output: Urine 100 400 Urethral (López) 100 400 Other: Voiding Method Indwelling Catheter # Bowel Movements 0 - Physical Exam Head: Positive for: Atraumatic, Normocephalic Pupils: Positive for: PERRL Extroacular Muscles: Positive for: EOMI Conjunctiva: Positive for: Normal Mouth: Positive for: Dry Neck: Positive for: Normal Range of Motion Respiratory/Chest: Positive for: Clear to Auscultation, Good Air Exchange. Negative for: Respiratory Distress, Accessory Muscle Use Cardiovascular: Positive for: Normal S1, S2, Tachycardic. Negative for: Murmurs Abdomen: Positive for: Normal Bowel Sounds. Negative for: Tenderness, Distention, Peritoneal Signs Upper Extremity: Positive for: Normal Inspection. Negative for: Cyanosis, Edema Lower Extremity: Positive for: Normal Inspection, NORMAL PULSES (diminished but palpable). Negative for: Edema, CALF TENDERNESS, Akiko's Sign Neurological: Positive for: GCS=15, CN II-XII Intact, Speech Normal. Negative for: Motor Func Grossly Intact (LE motor 3/5 b/l; diminished sensation LE) Skin: Positive for: Warm, Dry, Normal Color. Negative for: Rashes Psychiatric: Positive for: Alert, Normal Insight, Normal Concentration. Negative for: Oriented x 3 (Does not remember month, day/ president name/ failed 3 recall/ failed WORLD backward/ faile Serial 7) - Medications Active Medications: Active Medications Generic Name Dose Route Start Last Admin Trade Name Freq PRN Reason Stop Dose Admin Acetaminophen 650 mg 07/13/16 00:56 07/13/16 01:19 Tylenol 325mg Tab PO 650 mg Q6H PRN Administration Headache Alprazolam 0.5 mg 07/12/16 18:00 07/12/16 18:08 Xanax PO Not Given BID [facility] Protocol Aspirin 81 mg 07/12/16 13:00 07/12/16 13:58 Ecotrin PO 81 mg DAILY PARAG Administration Cholecalciferol 2,000 iu 07/12/16 13:00 07/12/16 16:45 Vitamin D PO Not Given DAILY PARAG Clopidogrel Bisulfate 75 mg 07/12/16 13:00 07/12/16 13:58 Plavix PO 75 mg DAILY PARAG Administration Ergocalciferol 1 cap 07/13/16 09:15 Drisdol 50,000 Intl Units Cap PO Q7D PARAG Gabapentin 600 mg 07/12/16 14:00 07/12/16 18:08 Neurontin PO Not Given TID [facility] Protocol Insulin Human Regular 100 100 mls @ 3 mls/hr 07/12/16 12:06 07/13/16 09:00 units/ Sodium Chloride IV 3 units/hr .Q24H PRN 3 mls/hr TITRATE PER MD ORDER Titration Protocol 3 UNITS/HR Meropenem 1g/NS 100mL IVPB 1 gm in 100 mls @ 100 mls/hr 07/12/16 19:58 21:21 Meropenem 1g/Ns 100ml Ivpb IVPB 07/19/16 19:59 100 mls/hr Q12 PARAG Administration Protocol Potassium Chloride/Dextrose/Sod Cl 1,000 mls @ 150 mls/hr 07/13/16 02:30 06/26 02:55 Potassium Chl 20 Meq In D5-1/2ns IV 150 mls/hr .Q6H40M PARAG Administration Potassium Chloride 20 meq in 100 mls @ 50 mls/hr 07/13/16 08:00 Potassium Chloride 20 Meq/100 Ml IVPB 07/13/16 11:59 Q2H PARAG Labetalol HCl 200 mg 07/12/16 18:00 07/12/16 18:08 Trandate PO Not Given BID PARAG Labetalol HCl 10 mg 07/12/16 18:55 07/13/16 01:26 Trandate IV 10 mg Q6 PRN Administration Heart rate Levothyroxine Sodium 175 mcg 07/12/16 13:00 07/12/16 16:40 Synthroid PO Not Given DAILY PARAG Metoclopramide HCl 10 mg 07/12/16 13:00 07/13/16 02:34 Reglan IVP 10 mg Q6H PARAG Administration Ondansetron HCl 4 mg 07/12/16 12:57 07/13/16 06:59 Zofran Inj IVP 4 mg Q4H PRN Administration Nausea/Vomiting Pantoprazole Sodium 40 mg 07/13/16 10:00 Protonix Ec Tab PO DAILY [facility] Prednisolone Acetate 0 ml 07/12/16 14:00 07/13/16 00:00 Pred Forte 1% Opht Susp OS 1 drop QID PARAG Administration Sertraline HCl 50 mg 07/12/16 13:00 07/12/16 16:45 Zoloft PO Not Given DAILY [facility] Tamsulosin HCl 0.4 mg 07/12/16 13:00 07/12/16 13:58 Flomax PO 0.4 mg DAILY PARAG Administration Trazodone HCl 50 mg 07/13/16 10:00 Desyrel PO DAILY PARAG - Patient Studies Lab Studies: Lab Studies 07/13/16 07/13/16 07/13/16 Range/Units 09:00 09:00 07:58 WBC (4.5-11.0) 10^3/ul RBC (3.5-6.1) 10^6/uL Hgb (14.0-18.0) gm/dL Hct (42.0-52.0) % MCV (80.0-105.0) fL MCH (25.0-35.0) pg MCHC (31.0-37.0) g/dl RDW (11.5-14.5) % Plt Count (120.0-450.0) 10^3/uL MPV (7.0-11.0) fl Gran % (50.0-68.0) % Lymph % (Auto) (22.0-35.0) % Stewart % (Auto) (1.0-6.0) % Eos % (Auto) (1.5-5.0) % Baso % (Auto) (0.0-3.0) % Gran # (1.4-6.5) Lymph # (1.2-3.4) Stewart # (0.1-0.6) Eos # (0.0-0.7) Baso # (0.0-2.0) K/mm3 pO2 (30-55) mm/Hg VBG pH (7.32-7.43) VBG pCO2 (40-60) VBG HCO3 (21-28) mmol/l VBG Total CO2 (22-28) mmol.L VBG O2 Sat (Calc) (40-65) % VBG Base Excess (0.0-2.0) mmol/L VBG Potassium (3.6-5.2) mmol/L Sodium 141 (132-148) mmol/L Chloride 109 H (98-107) mmol/L Glucose (75-110) mg/dl Lactate (0.7-2.1) mmol/L FiO2 % Potassium 3.9 (3.6-5.0) mmol/L Carbon Dioxide 20 L (21-33) mmol/L Anion Gap 16 (10-20) BUN 63 H (7-21) mg/dL Creatinine 3.2 H (0.5-1.4) mg/dL Est GFR ( Amer) 27 Est GFR (Non-Af Amer) 22 POC Glucose (mg/dL) 299 H (65-110) mg/dL Random Glucose 262 H (70-110) mg/dL Hemoglobin A1c (4.2-6.5) % Lactic Acid 1.4 (0.7-2.1) mmol/L Uric Acid (3.5-8.5) mg/dL Calcium 7.9 L (8.4-10.5) mg/dL Phosphorus (2.5-4.5) mg/dL Magnesium (1.7-2.2) mg/dL Total Bilirubin (0.2-1.3) mg/dL Direct Bilirubin (0.0-0.4) mg/dL AST (15-59) U/L ALT (7-56) U/L Alkaline Phosphatase (38-133) U/L Lactate Dehydrogenase (333-699) U/L Total Creatine Kinase (35-230) U/L Troponin I ng/mL Total Protein (5.8-8.3) g/dL Albumin (3.0-4.8) g/dL Globulin gm/dL Albumin/Globulin Ratio (1.1-1.8) Triglycerides (35-160) mg/dL Cholesterol (130-200) mg/dL LDL Cholesterol Direct (0-129) mg/dL HDL Cholesterol (29-60) mg/dL Vitamin B12 (239-931) pg/mL 25-OH Vitamin D Total (30.0-100.0) NG/ML Folate ng/mL Homocysteine ( <11.4) umol/L Procalcitonin (0.19-0.49) NG/ML Free T4 (0.78-2.19) ng/dL Thyroxine (T4) (5.5-11.0) ug/dL TSH 3rd Generation (0.46-4.68) mIU/mL Venous Blood Potassium (3.6-5.2) mmol/L Urine Color (YELLOW) Urine Appearance (CLEAR) Urine pH (4.7-8.0) Ur Specific [place] (1.005-1.035) Urine Protein (<30 mg/dL) mg/dL Urine Glucose (UA) (NEGATIVE) mg/dL Urine Ketones (NEGATIVE) mg/dL Urine Blood (NEGATIVE) Urine Nitrate (NEGATIVE) Urine Bilirubin (NEGATIVE) Urine Urobilinogen (<1 E.U./dL) E.U./dL Ur Leukocyte Esterase (NEGATIVE) Thaddeus/uL Urine RBC (0-2) /hpf Urine WBC (0-6) /hpf Urine Bacteria (NEG) Urine Other 07/13/16 07/13/16 07/13/16 Range/Units 07:08 06:40 06:00 WBC (4.5-11.0) 10^3/ul RBC (3.5-6.1) 10^6/uL Hgb (14.0-18.0) gm/dL Hct (42.0-52.0) % MCV (80.0-105.0) fL MCH (25.0-35.0) pg MCHC (31.0-37.0) g/dl RDW (11.5-14.5) % Plt Count (120.0-450.0) 10^3/uL MPV (7.0-11.0) fl Gran % (50.0-68.0) % Lymph % (Auto) (22.0-35.0) % Stewart % (Auto) (1.0-6.0) % Eos % (Auto) (1.5-5.0) % Baso % (Auto) (0.0-3.0) % Gran # (1.4-6.5) Lymph # (1.2-3.4) Stewart # (0.1-0.6) Eos # (0.0-0.7) Baso # (0.0-2.0) K/mm3 pO2 47 (30-55) mm/Hg VBG pH 7.35 (7.32-7.43) VBG pCO2 38.0 L (40-60) VBG HCO3 21.0 (21-28) mmol/l VBG Total CO2 22.2 (22-28) mmol.L VBG O2 Sat (Calc) 87.8 H (40-65) % VBG Base Excess -4.2 L (0.0-2.0) mmol/L VBG Potassium 3.5 L (3.6-5.2) mmol/L Sodium 144.0 (132-148) mmol/L Chloride 117.0 H (98-107) mmol/L Glucose 196 H (75-110) mg/dl Lactate 1.3 (0.7-2.1) mmol/L FiO2 21.0 % Potassium (3.6-5.0) mmol/L Carbon Dioxide (21-33) mmol/L Anion Gap (10-20) BUN (7-21) mg/dL Creatinine (0.5-1.4) mg/dL Est GFR ( Amer) Est GFR (Non-Af Amer) POC Glucose (mg/dL) 317 H 247 H (65-110) mg/dL Random Glucose (70-110) mg/dL Hemoglobin A1c (4.2-6.5) % Lactic Acid (0.7-2.1) mmol/L Uric Acid (3.5-8.5) mg/dL Calcium (8.4-10.5) mg/dL Phosphorus (2.5-4.5) mg/dL Magnesium (1.7-2.2) mg/dL Total Bilirubin (0.2-1.3) mg/dL Direct Bilirubin (0.0-0.4) mg/dL AST (15-59) U/L ALT (7-56) U/L Alkaline Phosphatase (38-133) U/L Lactate Dehydrogenase (333-699) U/L Total Creatine Kinase (35-230) U/L Troponin I ng/mL Total Protein (5.8-8.3) g/dL Albumin (3.0-4.8) g/dL Globulin gm/dL Albumin/Globulin Ratio (1.1-1.8) Triglycerides (35-160) mg/dL Cholesterol (130-200) mg/dL LDL Cholesterol Direct (0-129) mg/dL HDL Cholesterol (29-60) mg/dL Vitamin B12 (239-931) pg/mL 25-OH Vitamin D Total (30.0-100.0) NG/ML Folate ng/mL Homocysteine ( <11.4) umol/L Procalcitonin (0.19-0.49) NG/ML Free T4 (0.78-2.19) ng/dL Thyroxine (T4) (5.5-11.0) ug/dL TSH 3rd Generation (0.46-4.68) mIU/mL Venous Blood Potassium 3.5 L (3.6-5.2) mmol/L Urine Color (YELLOW) Urine Appearance (CLEAR) Urine pH (4.7-8.0) Ur Specific [place] (1.005-1.035) Urine Protein (<30 mg/dL) mg/dL Urine Glucose (UA) (NEGATIVE) mg/dL Urine Ketones (NEGATIVE) mg/dL Urine Blood (NEGATIVE) Urine Nitrate (NEGATIVE) Urine Bilirubin (NEGATIVE) Urine Urobilinogen (<1 E.U./dL) E.U./dL Ur Leukocyte Esterase (NEGATIVE) Thaddeus/uL Urine RBC (0-2) /hpf Urine WBC (0-6) /hpf Urine Bacteria (NEG) Urine Other 05/04/17 05/04/17 05/04/17 Range/Units 06:00 05:10 05:00 WBC 17.9 H (4.5-11.0) 10^3/ul RBC 3.63 (3.5-6.1) 10^6/uL Hgb 10.5 L (14.0-18.0) gm/dL Hct 31.2 L (42.0-52.0) % MCV 86.0 (80.0-105.0) fL MCH 28.9 (25.0-35.0) pg MCHC 33.7 (31.0-37.0) g/dl RDW 13.9 (11.5-14.5) % Plt Count 317 (120.0-450.0) 10^3/uL MPV 10.4 (7.0-11.0) fl Gran % 73.5 H (50.0-68.0) % Lymph % (Auto) 13.8 L (22.0-35.0) % Stewart % (Auto) 11.4 H (1.0-6.0) % Eos % (Auto) 0.9 L (1.5-5.0) % Baso % (Auto) 0.4 (0.0-3.0) % Gran # 13.14 H (1.4-6.5) Lymph # 2.5 (1.2-3.4) Stewart # 2.0 H (0.1-0.6) Eos # 0.2 (0.0-0.7) Baso # 0.07 (0.0-2.0) K/mm3 pO2 (30-55) mm/Hg VBG pH (7.32-7.43) VBG pCO2 (40-60) VBG HCO3 (21-28) mmol/l VBG Total CO2 (22-28) mmol.L VBG O2 Sat (Calc) (40-65) % VBG Base Excess (0.0-2.0) mmol/L VBG Potassium (3.6-5.2) mmol/L Sodium 144 (132-148) mmol/L Chloride 111 H (98-107) mmol/L Glucose (75-110) mg/dl Lactate (0.7-2.1) mmol/L FiO2 % Potassium 3.5 L (3.6-5.0) mmol/L Carbon Dioxide 20 L (21-33) mmol/L Anion Gap 17 (10-20) BUN 61 H (7-21) mg/dL Creatinine 3.2 H (0.5-1.4) mg/dL Est GFR ( Amer) 27 Est GFR (Non-Af Amer) 22 POC Glucose (mg/dL) 160 H (65-110) mg/dL Random Glucose 184 H (70-110) mg/dL Hemoglobin A1c (4.2-6.5) % Lactic Acid (0.7-2.1) mmol/L Uric Acid (3.5-8.5) mg/dL Calcium 7.9 L (8.4-10.5) mg/dL Phosphorus 4.5 (2.5-4.5) mg/dL Magnesium 2.0 (1.7-2.2) mg/dL Total Bilirubin 0.5 (0.2-1.3) mg/dL Direct Bilirubin 0.5 H (0.0-0.4) mg/dL AST 18 (15-59) U/L ALT 32 (7-56) U/L Alkaline Phosphatase 92 (38-133) U/L Lactate Dehydrogenase 421 (333-699) U/L Total Creatine Kinase 115 (35-230) U/L Troponin I 0.33 H* ng/mL Total Protein 6.0 (5.8-8.3) g/dL Albumin 2.9 L (3.0-4.8) g/dL Globulin 3.1 gm/dL Albumin/Globulin Ratio 0.9 L (1.1-1.8) Triglycerides (35-160) mg/dL Cholesterol (130-200) mg/dL LDL Cholesterol Direct (0-129) mg/dL HDL Cholesterol (29-60) mg/dL Vitamin B12 (239-931) pg/mL 25-OH Vitamin D Total (30.0-100.0) NG/ML Folate ng/mL Homocysteine ( <11.4) umol/L Procalcitonin (0.19-0.49) NG/ML Free T4 (0.78-2.19) ng/dL Thyroxine (T4) (5.5-11.0) ug/dL TSH 3rd Generation (0.46-4.68) mIU/mL Venous Blood Potassium (3.6-5.2) mmol/L Urine Color (YELLOW) Urine Appearance (CLEAR) Urine pH (4.7-8.0) Ur Specific [place] (1.005-1.035) Urine Protein (<30 mg/dL) mg/dL Urine Glucose (UA) (NEGATIVE) mg/dL Urine Ketones (NEGATIVE) mg/dL Urine Blood (NEGATIVE) Urine Nitrate (NEGATIVE) Urine Bilirubin (NEGATIVE) Urine Urobilinogen (<1 E.U./dL) E.U./dL Ur Leukocyte Esterase (NEGATIVE) Thaddeus/uL Urine RBC (0-2) /hpf Urine WBC (0-6) /hpf Urine Bacteria (NEG) Urine Other 07/13/16 07/13/16 07/13/16 Range/Units 04:02 03:01 02:19 WBC (4.5-11.0) 10^3/ul RBC (3.5-6.1) 10^6/uL Hgb (14.0-18.0) gm/dL Hct (42.0-52.0) % MCV (80.0-105.0) fL MCH (25.0-35.0) pg MCHC (31.0-37.0) g/dl RDW (11.5-14.5) % Plt Count (120.0-450.0) 10^3/uL MPV (7.0-11.0) fl Gran % (50.0-68.0) % Lymph % (Auto) (22.0-35.0) % Stewart % (Auto) (1.0-6.0) % Eos % (Auto) (1.5-5.0) % Baso % (Auto) (0.0-3.0) % Gran # (1.4-6.5) Lymph # (1.2-3.4) Stewart # (0.1-0.6) Eos # (0.0-0.7) Baso # (0.0-2.0) K/mm3 pO2 (30-55) mm/Hg VBG pH (7.32-7.43) VBG pCO2 (40-60) VBG HCO3 (21-28) mmol/l VBG Total CO2 (22-28) mmol.L VBG O2 Sat (Calc) (40-65) % VBG Base Excess (0.0-2.0) mmol/L VBG Potassium (3.6-5.2) mmol/L Sodium (132-148) mmol/L Chloride (98-107) mmol/L Glucose (75-110) mg/dl Lactate (0.7-2.1) mmol/L FiO2 % Potassium (3.6-5.0) mmol/L Carbon Dioxide (21-33) mmol/L Anion Gap (10-20) BUN (7-21) mg/dL Creatinine (0.5-1.4) mg/dL Est GFR ( Amer) Est GFR (Non-Af Amer) POC Glucose (mg/dL) 133 H 158 H 185 H (65-110) mg/dL Random Glucose (70-110) mg/dL Hemoglobin A1c (4.2-6.5) % Lactic Acid (0.7-2.1) mmol/L Uric Acid (3.5-8.5) mg/dL Calcium (8.4-10.5) mg/dL Phosphorus (2.5-4.5) mg/dL Magnesium (1.7-2.2) mg/dL Total Bilirubin (0.2-1.3) mg/dL Direct Bilirubin (0.0-0.4) mg/dL AST (15-59) U/L ALT (7-56) U/L Alkaline Phosphatase (38-133) U/L Lactate Dehydrogenase (333-699) U/L Total Creatine Kinase (35-230) U/L Troponin I ng/mL Total Protein (5.8-8.3) g/dL Albumin (3.0-4.8) g/dL Globulin gm/dL Albumin/Globulin Ratio (1.1-1.8) Triglycerides (35-160) mg/dL Cholesterol (130-200) mg/dL LDL Cholesterol Direct (0-129) mg/dL HDL Cholesterol (29-60) mg/dL Vitamin B12 (239-931) pg/mL 25-OH Vitamin D Total (30.0-100.0) NG/ML Folate ng/mL Homocysteine ( <11.4) umol/L Procalcitonin (0.19-0.49) NG/ML Free T4 (0.78-2.19) ng/dL Thyroxine (T4) (5.5-11.0) ug/dL TSH 3rd Generation (0.46-4.68) mIU/mL Venous Blood Potassium (3.6-5.2) mmol/L Urine Color (YELLOW) Urine Appearance (CLEAR) Urine pH (4.7-8.0) Ur Specific [place] (1.005-1.035) Urine Protein (<30 mg/dL) mg/dL Urine Glucose (UA) (NEGATIVE) mg/dL Urine Ketones (NEGATIVE) mg/dL Urine Blood (NEGATIVE) Urine Nitrate (NEGATIVE) Urine Bilirubin (NEGATIVE) Urine Urobilinogen (<1 E.U./dL) E.U./dL Ur Leukocyte Esterase (NEGATIVE) Thaddeus/uL Urine RBC (0-2) /hpf Urine WBC (0-6) /hpf Urine Bacteria (NEG) Urine Other 07/13/16 07/13/16 07/13/16 Range/Units 01:10 00:20 00:06 WBC (4.5-11.0) 10^3/ul RBC (3.5-6.1) 10^6/uL Hgb (14.0-18.0) gm/dL Hct (42.0-52.0) % MCV (80.0-105.0) fL MCH (25.0-35.0) pg MCHC (31.0-37.0) g/dl RDW (11.5-14.5) % Plt Count (120.0-450.0) 10^3/uL MPV (7.0-11.0) fl Gran % (50.0-68.0) % Lymph % (Auto) (22.0-35.0) % Stewart % (Auto) (1.0-6.0) % Eos % (Auto) (1.5-5.0) % Baso % (Auto) (0.0-3.0) % Gran # (1.4-6.5) Lymph # (1.2-3.4) Stewart # (0.1-0.6) Eos # (0.0-0.7) Baso # (0.0-2.0) K/mm3 pO2 (30-55) mm/Hg VBG pH (7.32-7.43) VBG pCO2 (40-60) VBG HCO3 (21-28) mmol/l VBG Total CO2 (22-28) mmol.L VBG O2 Sat (Calc) (40-65) % VBG Base Excess (0.0-2.0) mmol/L VBG Potassium (3.6-5.2) mmol/L Sodium 145 (132-148) mmol/L Chloride 107 (98-107) mmol/L Glucose (75-110) mg/dl Lactate (0.7-2.1) mmol/L FiO2 % Potassium 3.8 (3.6-5.0) mmol/L Carbon Dioxide 22 (21-33) mmol/L Anion Gap 20 (10-20) BUN 63 H (7-21) mg/dL Creatinine 3.0 H (0.5-1.4) mg/dL Est GFR ( Amer) 29 Est GFR (Non-Af Amer) 24 POC Glucose (mg/dL) 257 H 252 H (65-110) mg/dL Random Glucose 253 H (70-110) mg/dL Hemoglobin A1c (4.2-6.5) % Lactic Acid (0.7-2.1) mmol/L Uric Acid (3.5-8.5) mg/dL Calcium 8.5 (8.4-10.5) mg/dL Phosphorus (2.5-4.5) mg/dL Magnesium (1.7-2.2) mg/dL Total Bilirubin 0.7 (0.2-1.3) mg/dL Direct Bilirubin (0.0-0.4) mg/dL AST 17 (15-59) U/L ALT 31 (7-56) U/L Alkaline Phosphatase 103 (38-133) U/L Lactate Dehydrogenase 462 (333-699) U/L Total Creatine Kinase 107 (35-230) U/L Troponin I 0.40 H* D ng/mL Total Protein 6.8 (5.8-8.3) g/dL Albumin 3.5 (3.0-4.8) g/dL Globulin 3.3 gm/dL Albumin/Globulin Ratio 1.1 (1.1-1.8) Triglycerides (35-160) mg/dL Cholesterol (130-200) mg/dL LDL Cholesterol Direct (0-129) mg/dL HDL Cholesterol (29-60) mg/dL Vitamin B12 (239-931) pg/mL 25-OH Vitamin D Total (30.0-100.0) NG/ML Folate ng/mL Homocysteine ( <11.4) umol/L Procalcitonin (0.19-0.49) NG/ML Free T4 (0.78-2.19) ng/dL Thyroxine (T4) (5.5-11.0) ug/dL TSH 3rd Generation (0.46-4.68) mIU/mL Venous Blood Potassium (3.6-5.2) mmol/L Urine Color (YELLOW) Urine Appearance (CLEAR) Urine pH (4.7-8.0) Ur Specific [place] (1.005-1.035) Urine Protein (<30 mg/dL) mg/dL Urine Glucose (UA) (NEGATIVE) mg/dL Urine Ketones (NEGATIVE) mg/dL Urine Blood (NEGATIVE) Urine Nitrate (NEGATIVE) Urine Bilirubin (NEGATIVE) Urine Urobilinogen (<1 E.U./dL) E.U./dL Ur Leukocyte Esterase (NEGATIVE) Thaddeus/uL Urine RBC (0-2) /hpf Urine WBC (0-6) /hpf Urine Bacteria (NEG) Urine Other 07/12/16 07/12/16 07/12/16 Range/Units 23:06 22:08 22:03 WBC (4.5-11.0) 10^3/ul RBC (3.5-6.1) 10^6/uL Hgb (14.0-18.0) gm/dL Hct (42.0-52.0) % MCV (80.0-105.0) fL MCH (25.0-35.0) pg MCHC (31.0-37.0) g/dl RDW (11.5-14.5) % Plt Count (120.0-450.0) 10^3/uL MPV (7.0-11.0) fl Gran % (50.0-68.0) % Lymph % (Auto) (22.0-35.0) % [place] % (Auto) (1.0-6.0) % Eos % (Auto) (1.5-5.0) % Baso % (Auto) (0.0-3.0) % Gran # (1.4-6.5) Lymph # (1.2-3.4) Stewart # (0.1-0.6) Eos # (0.0-0.7) Baso # (0.0-2.0) K/mm3 pO2 30 (30-55) mm/Hg VBG pH 7.30 L (7.32-7.43) VBG pCO2 46.0 (40-60) VBG HCO3 22.6 (21-28) mmol/l VBG Total CO2 24.0 (22-28) mmol.L VBG O2 Sat (Calc) 62.1 (40-65) % VBG Base Excess -4.0 L (0.0-2.0) mmol/L VBG Potassium 4.2 (3.6-5.2) mmol/L Sodium 144.0 (132-148) mmol/L Chloride 113.0 H (98-107) mmol/L Glucose 357 H (75-110) mg/dl Lactate 2.4 H (0.7-2.1) mmol/L FiO2 21.0 % Potassium (3.6-5.0) mmol/L Carbon Dioxide (21-33) mmol/L Anion Gap (10-20) BUN (7-21) mg/dL Creatinine (0.5-1.4) mg/dL Est GFR ( Amer) Est GFR (Non-Af Amer) POC Glucose (mg/dL) 271 H 325 H (65-110) mg/dL Random Glucose (70-110) mg/dL Hemoglobin A1c (4.2-6.5) % Lactic Acid (0.7-2.1) mmol/L Uric Acid (3.5-8.5) mg/dL Calcium (8.4-10.5) mg/dL Phosphorus (2.5-4.5) mg/dL Magnesium (1.7-2.2) mg/dL Total Bilirubin (0.2-1.3) mg/dL Direct Bilirubin (0.0-0.4) mg/dL AST (15-59) U/L ALT (7-56) U/L Alkaline Phosphatase (38-133) U/L Lactate Dehydrogenase (333-699) U/L Total Creatine Kinase (35-230) U/L Troponin I ng/mL Total Protein (5.8-8.3) g/dL Albumin (3.0-4.8) g/dL Globulin gm/dL Albumin/Globulin Ratio (1.1-1.8) Triglycerides (35-160) mg/dL Cholesterol (130-200) mg/dL LDL Cholesterol Direct (0-129) mg/dL HDL Cholesterol (29-60) mg/dL Vitamin B12 (239-931) pg/mL 25-OH Vitamin D Total (30.0-100.0) NG/ML Folate ng/mL Homocysteine ( <11.4) umol/L Procalcitonin (0.19-0.49) NG/ML Free T4 (0.78-2.19) ng/dL Thyroxine (T4) (5.5-11.0) ug/dL TSH 3rd Generation (0.46-4.68) mIU/mL Venous Blood Potassium 4.2 (3.6-5.2) mmol/L Urine Color (YELLOW) Urine Appearance (CLEAR) Urine pH (4.7-8.0) Ur Specific [place] (1.005-1.035) Urine Protein (<30 mg/dL) mg/dL Urine Glucose (UA) (NEGATIVE) mg/dL Urine Ketones (NEGATIVE) mg/dL Urine Blood (NEGATIVE) Urine Nitrate (NEGATIVE) Urine Bilirubin (NEGATIVE) Urine Urobilinogen (<1 E.U./dL) E.U./dL Ur Leukocyte Esterase (NEGATIVE) Thaddeus/uL Urine RBC (0-2) /hpf Urine WBC (0-6) /hpf Urine Bacteria (NEG) Urine Other 07/12/16 07/12/16 07/12/16 Range/Units 21:09 21:04 20:11 WBC (4.5-11.0) 10^3/ul RBC (3.5-6.1) 10^6/uL Hgb (14.0-18.0) gm/dL Hct (42.0-52.0) % MCV (80.0-105.0) fL MCH (25.0-35.0) pg MCHC (31.0-37.0) g/dl RDW (11.5-14.5) % Plt Count (120.0-450.0) 10^3/uL MPV (7.0-11.0) fl Gran % (50.0-68.0) % Lymph % (Auto) (22.0-35.0) % Stewart % (Auto) (1.0-6.0) % Eos % (Auto) (1.5-5.0) % Baso % (Auto) (0.0-3.0) % Gran # (1.4-6.5) Lymph # (1.2-3.4) Stewart # (0.1-0.6) Eos # (0.0-0.7) Baso # (0.0-2.0) K/mm3 pO2 (30-55) mm/Hg VBG pH (7.32-7.43) VBG pCO2 (40-60) VBG HCO3 (21-28) mmol/l VBG Total CO2 (22-28) mmol.L VBG O2 Sat (Calc) (40-65) % VBG Base Excess (0.0-2.0) mmol/L VBG Potassium (3.6-5.2) mmol/L Sodium 142 (132-148) mmol/L Chloride 105 (98-107) mmol/L Glucose (75-110) mg/dl Lactate (0.7-2.1) mmol/L FiO2 % Potassium 4.3 (3.6-5.0) mmol/L Carbon Dioxide 22 (21-33) mmol/L Anion Gap 19 (10-20) BUN 64 H (7-21) mg/dL Creatinine 3.0 H (0.5-1.4) mg/dL Est GFR ( Amer) 29 Est GFR (Non-Af Amer) 24 POC Glucose (mg/dL) 370 H 394 H (65-110) mg/dL Random Glucose 359 H* D (70-110) mg/dL Hemoglobin A1c (4.2-6.5) % Lactic Acid (0.7-2.1) mmol/L Uric Acid (3.5-8.5) mg/dL Calcium 8.2 L (8.4-10.5) mg/dL Phosphorus (2.5-4.5) mg/dL Magnesium (1.7-2.2) mg/dL Total Bilirubin (0.2-1.3) mg/dL Direct Bilirubin (0.0-0.4) mg/dL AST (15-59) U/L ALT (7-56) U/L Alkaline Phosphatase (38-133) U/L Lactate Dehydrogenase (333-699) U/L Total Creatine Kinase (35-230) U/L Troponin I ng/mL Total Protein (5.8-8.3) g/dL Albumin (3.0-4.8) g/dL Globulin gm/dL Albumin/Globulin Ratio (1.1-1.8) Triglycerides (35-160) mg/dL Cholesterol (130-200) mg/dL LDL Cholesterol Direct (0-129) mg/dL HDL Cholesterol (29-60) mg/dL Vitamin B12 (239-931) pg/mL 25-OH Vitamin D Total (30.0-100.0) NG/ML Folate ng/mL Homocysteine ( <11.4) umol/L Procalcitonin (0.19-0.49) NG/ML Free T4 (0.78-2.19) ng/dL Thyroxine (T4) (5.5-11.0) ug/dL TSH 3rd Generation (0.46-4.68) mIU/mL Venous Blood Potassium (3.6-5.2) mmol/L Urine Color (YELLOW) Urine Appearance (CLEAR) Urine pH (4.7-8.0) Ur Specific [place] (1.005-1.035) Urine Protein (<30 mg/dL) mg/dL Urine Glucose (UA) (NEGATIVE) mg/dL Urine Ketones (NEGATIVE) mg/dL Urine Blood (NEGATIVE) Urine Nitrate (NEGATIVE) Urine Bilirubin (NEGATIVE) Urine Urobilinogen (<1 E.U./dL) E.U./dL Ur Leukocyte Esterase (NEGATIVE) Thaddeus/uL Urine RBC (0-2) /hpf Urine WBC (0-6) /hpf Urine Bacteria (NEG) Urine Other 07/12/16 07/12/16 07/12/16 Range/Units 18:57 18:27 17:40 WBC (4.5-11.0) 10^3/ul RBC (3.5-6.1) 10^6/uL Hgb (14.0-18.0) gm/dL Hct (42.0-52.0) % MCV (80.0-105.0) fL MCH (25.0-35.0) pg MCHC (31.0-37.0) g/dl RDW (11.5-14.5) % Plt Count (120.0-450.0) 10^3/uL MPV (7.0-11.0) fl Gran % (50.0-68.0) % Lymph % (Auto) (22.0-35.0) % Stewart % (Auto) (1.0-6.0) % Eos % (Auto) (1.5-5.0) % Baso % (Auto) (0.0-3.0) % Gran # (1.4-6.5) Lymph # (1.2-3.4) Stewart # (0.1-0.6) Eos # (0.0-0.7) Baso # (0.0-2.0) K/mm3 pO2 (30-55) mm/Hg VBG pH (7.32-7.43) VBG pCO2 (40-60) VBG HCO3 (21-28) mmol/l VBG Total CO2 (22-28) mmol.L VBG O2 Sat (Calc) (40-65) % VBG Base Excess (0.0-2.0) mmol/L VBG Potassium (3.6-5.2) mmol/L Sodium (132-148) mmol/L Chloride (98-107) mmol/L Glucose (75-110) mg/dl Lactate (0.7-2.1) mmol/L FiO2 % Potassium (3.6-5.0) mmol/L Carbon Dioxide (21-33) mmol/L Anion Gap (10-20) BUN (7-21) mg/dL Creatinine (0.5-1.4) mg/dL Est GFR ( Amer) Est GFR (Non-Af Amer) POC Glucose (mg/dL) 467 H* > 500 H* (65-110) mg/dL Random Glucose (70-110) mg/dL Hemoglobin A1c (4.2-6.5) % Lactic Acid 2.4 H (0.7-2.1) mmol/L Uric Acid (3.5-8.5) mg/dL Calcium (8.4-10.5) mg/dL Phosphorus (2.5-4.5) mg/dL Magnesium (1.7-2.2) mg/dL Total Bilirubin (0.2-1.3) mg/dL Direct Bilirubin (0.0-0.4) mg/dL AST (15-59) U/L ALT (7-56) U/L Alkaline Phosphatase (38-133) U/L Lactate Dehydrogenase (333-699) U/L Total Creatine Kinase (35-230) U/L Troponin I ng/mL Total Protein (5.8-8.3) g/dL Albumin (3.0-4.8) g/dL Globulin gm/dL Albumin/Globulin Ratio (1.1-1.8) Triglycerides (35-160) mg/dL Cholesterol (130-200) mg/dL LDL Cholesterol Direct (0-129) mg/dL HDL Cholesterol (29-60) mg/dL Vitamin B12 (239-931) pg/mL 25-OH Vitamin D Total (30.0-100.0) NG/ML Folate ng/mL Homocysteine ( <11.4) umol/L Procalcitonin (0.19-0.49) NG/ML Free T4 (0.78-2.19) ng/dL Thyroxine (T4) (5.5-11.0) ug/dL TSH 3rd Generation (0.46-4.68) mIU/mL Venous Blood Potassium (3.6-5.2) mmol/L Urine Color (YELLOW) Urine Appearance (CLEAR) Urine pH (4.7-8.0) Ur Specific [place] (1.005-1.035) Urine Protein (<30 mg/dL) mg/dL Urine Glucose (UA) (NEGATIVE) mg/dL Urine Ketones (NEGATIVE) mg/dL Urine Blood (NEGATIVE) Urine Nitrate (NEGATIVE) Urine Bilirubin (NEGATIVE) Urine Urobilinogen (<1 E.U./dL) E.U./dL Ur Leukocyte Esterase (NEGATIVE) Thaddeus/uL Urine RBC (0-2) /hpf Urine WBC (0-6) /hpf Urine Bacteria (NEG) Urine Other 07/12/16 07/12/16 07/12/16 Range/Units 17:40 17:40 17:00 WBC (4.5-11.0) 10^3/ul RBC (3.5-6.1) 10^6/uL Hgb (14.0-18.0) gm/dL Hct (42.0-52.0) % MCV (80.0-105.0) fL MCH (25.0-35.0) pg MCHC (31.0-37.0) g/dl RDW (11.5-14.5) % Plt Count (120.0-450.0) 10^3/uL MPV (7.0-11.0) fl Gran % (50.0-68.0) % Lymph % (Auto) (22.0-35.0) % Stewart % (Auto) (1.0-6.0) % Eos % (Auto) (1.5-5.0) % Baso % (Auto) (0.0-3.0) % Gran # (1.4-6.5) Lymph # (1.2-3.4) Stewart # (0.1-0.6) Eos # (0.0-0.7) Baso # (0.0-2.0) K/mm3 pO2 38 (30-55) mm/Hg VBG pH 7.20 L (7.32-7.43) VBG pCO2 34.0 L (40-60) VBG HCO3 13.3 L (21-28) mmol/l VBG Total CO2 14.3 L (22-28) mmol.L VBG O2 Sat (Calc) 72.5 H (40-65) % VBG Base Excess -13.7 L (0.0-2.0) mmol/L VBG Potassium 5.1 (3.6-5.2) mmol/L Sodium 141.0 141 (132-148) mmol/L Chloride 105.0 102 (98-107) mmol/L Glucose 610 H* (75-110) mg/dl Lactate 2.8 H (0.7-2.1) mmol/L FiO2 21.0 % Potassium 4.8 (3.6-5.0) mmol/L Carbon Dioxide 12 L (21-33) mmol/L Anion Gap 32 H (10-20) BUN 59 H (7-21) mg/dL Creatinine 3.0 H (0.5-1.4) mg/dL Est GFR ( Amer) 29 Est GFR (Non-Af Amer) 24 POC Glucose (mg/dL) (65-110) mg/dL Random Glucose 585 H* D (70-110) mg/dL Hemoglobin A1c (4.2-6.5) % Lactic Acid (0.7-2.1) mmol/L Uric Acid (3.5-8.5) mg/dL Calcium 8.7 (8.4-10.5) mg/dL Phosphorus (2.5-4.5) mg/dL Magnesium (1.7-2.2) mg/dL Total Bilirubin 0.7 (0.2-1.3) mg/dL Direct Bilirubin (0.0-0.4) mg/dL AST 20 (15-59) U/L ALT 29 (7-56) U/L Alkaline Phosphatase 108 (38-133) U/L Lactate Dehydrogenase 451 (333-699) U/L Total Creatine Kinase 98 (35-230) U/L Troponin I 0.13 H* D ng/mL Total Protein 6.7 (5.8-8.3) g/dL Albumin 3.5 (3.0-4.8) g/dL Globulin 3.2 gm/dL Albumin/Globulin Ratio 1.1 (1.1-1.8) Triglycerides (35-160) mg/dL Cholesterol (130-200) mg/dL LDL Cholesterol Direct (0-129) mg/dL HDL Cholesterol (29-60) mg/dL Vitamin B12 (239-931) pg/mL 25-OH Vitamin D Total (30.0-100.0) NG/ML Folate ng/mL Homocysteine ( <11.4) umol/L Procalcitonin (0.19-0.49) NG/ML Free T4 (0.78-2.19) ng/dL Thyroxine (T4) (5.5-11.0) ug/dL TSH 3rd Generation (0.46-4.68) mIU/mL Venous Blood Potassium 5.1 (3.6-5.2) mmol/L Urine Color Yellow (YELLOW) Urine Appearance Turbid (CLEAR) Urine pH 6.0 (4.7-8.0) Ur Specific [place] >= 1.030 (1.005-1.035) Urine Protein >=300 H (<30 mg/dL) mg/dL Urine Glucose (UA) >=1000 (NEGATIVE) mg/dL Urine Ketones 40 H (NEGATIVE) mg/dL Urine Blood Moderate H (NEGATIVE) Urine Nitrate Negative (NEGATIVE) Urine Bilirubin Small H (NEGATIVE) Urine Urobilinogen 0.2 (<1 E.U./dL) E.U./dL Ur Leukocyte Esterase Small H (NEGATIVE) Thaddeus/uL Urine RBC 5 - 10 (0-2) /hpf Urine WBC 25 - 30 (0-6) /hpf Urine Bacteria Few (NEG) Urine Other Uyeast 07/12/16 07/12/16 07/12/16 Range/Units 16:46 14:19 14:19 WBC (4.5-11.0) 10^3/ul RBC (3.5-6.1) 10^6/uL Hgb (14.0-18.0) gm/dL Hct (42.0-52.0) % MCV (80.0-105.0) fL MCH (25.0-35.0) pg MCHC (31.0-37.0) g/dl RDW (11.5-14.5) % Plt Count (120.0-450.0) 10^3/uL MPV (7.0-11.0) fl Gran % (50.0-68.0) % Lymph % (Auto) (22.0-35.0) % Stewart % (Auto) (1.0-6.0) % Eos % (Auto) (1.5-5.0) % Baso % (Auto) (0.0-3.0) % Gran # (1.4-6.5) Lymph # (1.2-3.4) Stewart # (0.1-0.6) Eos # (0.0-0.7) Baso # (0.0-2.0) K/mm3 pO2 (30-55) mm/Hg VBG pH (7.32-7.43) VBG pCO2 (40-60) VBG HCO3 (21-28) mmol/l VBG Total CO2 (22-28) mmol.L VBG O2 Sat (Calc) (40-65) % VBG Base Excess (0.0-2.0) mmol/L VBG Potassium (3.6-5.2) mmol/L Sodium (132-148) mmol/L Chloride (98-107) mmol/L Glucose (75-110) mg/dl Lactate (0.7-2.1) mmol/L FiO2 % Potassium (3.6-5.0) mmol/L Carbon Dioxide (21-33) mmol/L Anion Gap (10-20) BUN (7-21) mg/dL Creatinine (0.5-1.4) mg/dL Est GFR ( Amer) Est GFR (Non-Af Amer) POC Glucose (mg/dL) 482 H* (65-110) mg/dL Random Glucose (70-110) mg/dL Hemoglobin A1c (4.2-6.5) % Lactic Acid (0.7-2.1) mmol/L Uric Acid (3.5-8.5) mg/dL Calcium (8.4-10.5) mg/dL Phosphorus (2.5-4.5) mg/dL Magnesium (1.7-2.2) mg/dL Total Bilirubin (0.2-1.3) mg/dL Direct Bilirubin (0.0-0.4) mg/dL AST (15-59) U/L ALT (7-56) U/L Alkaline Phosphatase (38-133) U/L Lactate Dehydrogenase (333-699) U/L Total Creatine Kinase (35-230) U/L Troponin I ng/mL Total Protein (5.8-8.3) g/dL Albumin (3.0-4.8) g/dL Globulin gm/dL Albumin/Globulin Ratio (1.1-1.8) Triglycerides (35-160) mg/dL Cholesterol (130-200) mg/dL LDL Cholesterol Direct (0-129) mg/dL HDL Cholesterol (29-60) mg/dL Vitamin B12 (239-931) pg/mL 25-OH Vitamin D Total < 12.8 L (30.0-100.0) NG/ML Folate ng/mL Homocysteine 12.2 H ( <11.4) umol/L Procalcitonin (0.19-0.49) NG/ML Free T4 (0.78-2.19) ng/dL Thyroxine (T4) (5.5-11.0) ug/dL TSH 3rd Generation (0.46-4.68) mIU/mL Venous Blood Potassium (3.6-5.2) mmol/L Urine Color (YELLOW) Urine Appearance (CLEAR) Urine pH (4.7-8.0) Ur Specific [place] (1.005-1.035) Urine Protein (<30 mg/dL) mg/dL Urine Glucose (UA) (NEGATIVE) mg/dL Urine Ketones (NEGATIVE) mg/dL Urine Blood (NEGATIVE) Urine Nitrate (NEGATIVE) Urine Bilirubin (NEGATIVE) Urine Urobilinogen (<1 E.U./dL) E.U./dL Ur Leukocyte Esterase (NEGATIVE) Thaddeus/uL Urine RBC (0-2) /hpf Urine WBC (0-6) /hpf Urine Bacteria (NEG) Urine Other 07/12/16 07/12/16 07/12/16 Range/Units 14:19 14:19 14:19 WBC (4.5-11.0) 10^3/ul RBC (3.5-6.1) 10^6/uL Hgb (14.0-18.0) gm/dL Hct (42.0-52.0) % MCV (80.0-105.0) fL MCH (25.0-35.0) pg MCHC (31.0-37.0) g/dl RDW (11.5-14.5) % Plt Count (120.0-450.0) 10^3/uL MPV (7.0-11.0) fl Gran % (50.0-68.0) % Lymph % (Auto) (22.0-35.0) % Stewart % (Auto) (1.0-6.0) % Eos % (Auto) (1.5-5.0) % Baso % (Auto) (0.0-3.0) % Gran # (1.4-6.5) Lymph # (1.2-3.4) Stewart # (0.1-0.6) Eos # (0.0-0.7) Baso # (0.0-2.0) K/mm3 pO2 (30-55) mm/Hg VBG pH (7.32-7.43) VBG pCO2 (40-60) VBG HCO3 (21-28) mmol/l VBG Total CO2 (22-28) mmol.L VBG O2 Sat (Calc) (40-65) % VBG Base Excess (0.0-2.0) mmol/L VBG Potassium (3.6-5.2) mmol/L Sodium (132-148) mmol/L Chloride (98-107) mmol/L Glucose (75-110) mg/dl Lactate (0.7-2.1) mmol/L FiO2 % Potassium (3.6-5.0) mmol/L Carbon Dioxide (21-33) mmol/L Anion Gap (10-20) BUN (7-21) mg/dL Creatinine (0.5-1.4) mg/dL Est GFR ( Amer) Est GFR (Non-Af Amer) POC Glucose (mg/dL) (65-110) mg/dL Random Glucose (70-110) mg/dL Hemoglobin A1c 8.2 H (4.2-6.5) % Lactic Acid 3.3 H (0.7-2.1) mmol/L Uric Acid (3.5-8.5) mg/dL Calcium (8.4-10.5) mg/dL Phosphorus (2.5-4.5) mg/dL Magnesium (1.7-2.2) mg/dL Total Bilirubin (0.2-1.3) mg/dL Direct Bilirubin (0.0-0.4) mg/dL AST (15-59) U/L ALT (7-56) U/L Alkaline Phosphatase (38-133) U/L Lactate Dehydrogenase (333-699) U/L Total Creatine Kinase (35-230) U/L Troponin I ng/mL Total Protein (5.8-8.3) g/dL Albumin (3.0-4.8) g/dL Globulin gm/dL Albumin/Globulin Ratio (1.1-1.8) Triglycerides (35-160) mg/dL Cholesterol (130-200) mg/dL LDL Cholesterol Direct (0-129) mg/dL HDL Cholesterol (29-60) mg/dL Vitamin B12 (239-931) pg/mL 25-OH Vitamin D Total (30.0-100.0) NG/ML Folate ng/mL Homocysteine ( <11.4) umol/L Procalcitonin (0.19-0.49) NG/ML Free T4 1.59 (0.78-2.19) ng/dL Thyroxine (T4) 7.7 (5.5-11.0) ug/dL TSH 3rd Generation 1.72 (0.46-4.68) mIU/mL Venous Blood Potassium (3.6-5.2) mmol/L Urine Color (YELLOW) Urine Appearance (CLEAR) Urine pH (4.7-8.0) Ur Specific [place] (1.005-1.035) Urine Protein (<30 mg/dL) mg/dL Urine Glucose (UA) (NEGATIVE) mg/dL Urine Ketones (NEGATIVE) mg/dL Urine Blood (NEGATIVE) Urine Nitrate (NEGATIVE) Urine Bilirubin (NEGATIVE) Urine Urobilinogen (<1 E.U./dL) E.U./dL Ur Leukocyte Esterase (NEGATIVE) Thaddeus/uL Urine RBC (0-2) /hpf Urine WBC (0-6) /hpf Urine Bacteria (NEG) Urine Other 07/12/16 07/12/16 Range/Units 14:19 14:19 WBC (4.5-11.0) 10^3/ul RBC (3.5-6.1) 10^6/uL Hgb (14.0-18.0) gm/dL Hct (42.0-52.0) % MCV (80.0-105.0) fL MCH (25.0-35.0) pg MCHC (31.0-37.0) g/dl RDW (11.5-14.5) % Plt Count (120.0-450.0) 10^3/uL MPV (7.0-11.0) fl Gran % (50.0-68.0) % Lymph % (Auto) (22.0-35.0) % [place] % (Auto) (1.0-6.0) % Eos % (Auto) (1.5-5.0) % Baso % (Auto) (0.0-3.0) % Gran # (1.4-6.5) Lymph # (1.2-3.4) Stewart # (0.1-0.6) Eos # (0.0-0.7) Baso # (0.0-2.0) K/mm3 pO2 (30-55) mm/Hg VBG pH (7.32-7.43) VBG pCO2 (40-60) VBG HCO3 (21-28) mmol/l VBG Total CO2 (22-28) mmol.L VBG O2 Sat (Calc) (40-65) % VBG Base Excess (0.0-2.0) mmol/L VBG Potassium (3.6-5.2) mmol/L Sodium (132-148) mmol/L Chloride (98-107) mmol/L Glucose (75-110) mg/dl Lactate (0.7-2.1) mmol/L FiO2 % Potassium (3.6-5.0) mmol/L Carbon Dioxide (21-33) mmol/L Anion Gap (10-20) BUN (7-21) mg/dL Creatinine (0.5-1.4) mg/dL Est GFR ( Amer) Est GFR (Non-Af Amer) POC Glucose (mg/dL) (65-110) mg/dL Random Glucose (70-110) mg/dL Hemoglobin A1c (4.2-6.5) % Lactic Acid (0.7-2.1) mmol/L Uric Acid 8.6 H (3.5-8.5) mg/dL Calcium (8.4-10.5) mg/dL Phosphorus (2.5-4.5) mg/dL Magnesium (1.7-2.2) mg/dL Total Bilirubin (0.2-1.3) mg/dL Direct Bilirubin (0.0-0.4) mg/dL AST (15-59) U/L ALT (7-56) U/L Alkaline Phosphatase (38-133) U/L Lactate Dehydrogenase (333-699) U/L Total Creatine Kinase (35-230) U/L Troponin I ng/mL Total Protein (5.8-8.3) g/dL Albumin (3.0-4.8) g/dL Globulin gm/dL Albumin/Globulin Ratio (1.1-1.8) Triglycerides 55 (35-160) mg/dL Cholesterol 198 (130-200) mg/dL LDL Cholesterol Direct 114 (0-129) mg/dL HDL Cholesterol 60 (29-60) mg/dL Vitamin B12 > 1000 H (239-931) pg/mL 25-OH Vitamin D Total (30.0-100.0) NG/ML Folate > 20.0 ng/mL Homocysteine ( <11.4) umol/L Procalcitonin 2.45 H (0.19-0.49) NG/ML Free T4 (0.78-2.19) ng/dL Thyroxine (T4) (5.5-11.0) ug/dL TSH 3rd Generation (0.46-4.68) mIU/mL Venous Blood Potassium (3.6-5.2) mmol/L Urine Color (YELLOW) Urine Appearance (CLEAR) Urine pH (4.7-8.0) Ur Specific [place] (1.005-1.035) Urine Protein (<30 mg/dL) mg/dL Urine Glucose (UA) (NEGATIVE) mg/dL Urine Ketones (NEGATIVE) mg/dL Urine Blood (NEGATIVE) Urine Nitrate (NEGATIVE) Urine Bilirubin (NEGATIVE) Urine Urobilinogen (<1 E.U./dL) E.U./dL Ur Leukocyte Esterase (NEGATIVE) Thaddeus/uL Urine RBC (0-2) /hpf Urine WBC (0-6) /hpf Urine Bacteria (NEG) Urine Other Laboratory Results - last 24 hr 07/12/16 07/12/16 07/12/16 14:19 14:19 14:19 WBC RBC Hgb Hct MCV MCH MCHC RDW Plt Count MPV Gran % Lymph % (Auto) [place] % (Auto) Eos % (Auto) Baso % (Auto) Gran # Lymph # [place] # Eos # Baso # pO2 VBG pH VBG pCO2 VBG HCO3 VBG Total CO2 VBG O2 Sat (Calc) VBG Base Excess VBG Potassium Sodium Chloride Glucose Lactate FiO2 Potassium Carbon Dioxide Anion Gap BUN Creatinine Est GFR ( Amer) Est GFR (Non-Af Amer) POC Glucose (mg/dL) Random Glucose Hemoglobin A1c 8.2 H Lactic Acid Uric Acid 8.6 H Calcium Phosphorus Magnesium Total Bilirubin Direct Bilirubin AST ALT Alkaline Phosphatase Lactate Dehydrogenase Total Creatine Kinase Troponin I Total Protein Albumin Globulin Albumin/Globulin Ratio Triglycerides 55 Cholesterol 198 LDL Cholesterol Direct 114 HDL Cholesterol 60 Vitamin B12 > 1000 H 25-OH Vitamin D Total Folate > 20.0 Homocysteine Procalcitonin 2.45 H Free T4 Thyroxine (T4) TSH 3rd Generation Venous Blood Potassium Urine Color Urine Appearance Urine pH Ur Specific [place] Urine Protein Urine Glucose (UA) Urine Ketones Urine Blood Urine Nitrate Urine Bilirubin Urine Urobilinogen Ur Leukocyte Esterase Urine RBC Urine WBC Urine Bacteria Urine Other 07/12/16 07/12/16 07/12/16 14:19 14:19 14:19 WBC RBC Hgb Hct MCV MCH MCHC RDW Plt Count MPV Gran % Lymph % (Auto) [place] % (Auto) Eos % (Auto) Baso % (Auto) Gran # Lymph # [place] # Eos # Baso # pO2 VBG pH VBG pCO2 VBG HCO3 VBG Total CO2 VBG O2 Sat (Calc) VBG Base Excess VBG Potassium Sodium Chloride Glucose Lactate FiO2 Potassium Carbon Dioxide Anion Gap BUN Creatinine Est GFR ( Amer) Est GFR (Non-Af Amer) POC Glucose (mg/dL) Random Glucose Hemoglobin A1c Lactic Acid 3.3 H Uric Acid Calcium Phosphorus Magnesium Total Bilirubin Direct Bilirubin AST ALT Alkaline Phosphatase Lactate Dehydrogenase Total Creatine Kinase Troponin I Total Protein Albumin Globulin Albumin/Globulin Ratio Triglycerides Cholesterol LDL Cholesterol Direct HDL Cholesterol Vitamin B12 25-OH Vitamin D Total < 12.8 L Folate Homocysteine Procalcitonin Free T4 1.59 Thyroxine (T4) 7.7 TSH 3rd Generation 1.72 Venous Blood Potassium Urine Color Urine Appearance Urine pH Ur Specific [place] Urine Protein Urine Glucose (UA) Urine Ketones Urine Blood Urine Nitrate Urine Bilirubin Urine Urobilinogen Ur Leukocyte Esterase Urine RBC Urine WBC Urine Bacteria Urine Other 07/12/16 07/12/16 07/12/16 14:19 16:46 17:00 WBC RBC Hgb Hct MCV MCH MCHC RDW Plt Count MPV Gran % Lymph % (Auto) [place] % (Auto) Eos % (Auto) Baso % (Auto) Gran # Lymph # [place] # Eos # Baso # pO2 VBG pH VBG pCO2 VBG HCO3 VBG Total CO2 VBG O2 Sat (Calc) VBG Base Excess VBG Potassium Sodium Chloride Glucose Lactate FiO2 Potassium Carbon Dioxide Anion Gap BUN Creatinine Est GFR ( Amer) Est GFR (Non-Af Amer) POC Glucose (mg/dL) 482 H* Random Glucose Hemoglobin A1c Lactic Acid Uric Acid Calcium Phosphorus Magnesium Total Bilirubin Direct Bilirubin AST ALT Alkaline Phosphatase Lactate Dehydrogenase Total Creatine Kinase Troponin I Total Protein Albumin Globulin Albumin/Globulin Ratio Triglycerides Cholesterol LDL Cholesterol Direct HDL Cholesterol Vitamin B12 25-OH Vitamin D Total Folate Homocysteine 12.2 H Procalcitonin Free T4 Thyroxine (T4) TSH 3rd Generation Venous Blood Potassium Urine Color Yellow Urine Appearance Turbid Urine pH 6.0 Ur Specific [place] >= 1.030 Urine Protein >=300 H Urine Glucose (UA) >=1000 Urine Ketones 40 H Urine Blood Moderate H Urine Nitrate Negative Urine Bilirubin Small H Urine Urobilinogen 0.2 Ur Leukocyte Esterase Small H Urine RBC 5 - 10 Urine WBC 25 - 30 Urine Bacteria Few Urine Other Uyeast 07/12/16 07/12/16 07/12/16 17:40 17:40 17:40 WBC RBC Hgb Hct MCV MCH MCHC RDW Plt Count MPV Gran % Lymph % (Auto) [place] % (Auto) Eos % (Auto) Baso % (Auto) Gran # Lymph # [place] # Eos # Baso # pO2 38 VBG pH 7.20 L VBG pCO2 34.0 L VBG HCO3 13.3 L VBG Total CO2 14.3 L VBG O2 Sat (Calc) 72.5 H VBG Base Excess -13.7 L VBG Potassium 5.1 Sodium 141 141.0 Chloride 102 105.0 Glucose 610 H* Lactate 2.8 H FiO2 21.0 Potassium 4.8 Carbon Dioxide 12 L Anion Gap 32 H BUN 59 H Creatinine 3.0 H Est GFR ( Amer) 29 Est GFR (Non-Af Amer) 24 POC Glucose (mg/dL) Random Glucose 585 H* D Hemoglobin A1c Lactic Acid 2.4 H Uric Acid Calcium 8.7 Phosphorus Magnesium Total Bilirubin 0.7 Direct Bilirubin AST 20 ALT 29 Alkaline Phosphatase 108 Lactate Dehydrogenase 451 Total Creatine Kinase 98 Troponin I 0.13 H* D Total Protein 6.7 Albumin 3.5 Globulin 3.2 Albumin/Globulin Ratio 1.1 Triglycerides Cholesterol LDL Cholesterol Direct HDL Cholesterol Vitamin B12 25-OH Vitamin D Total Folate Homocysteine Procalcitonin Free T4 Thyroxine (T4) TSH 3rd Generation Venous Blood Potassium 5.1 Urine Color Urine Appearance Urine pH Ur Specific [place] Urine Protein Urine Glucose (UA) Urine Ketones Urine Blood Urine Nitrate Urine Bilirubin Urine Urobilinogen Ur Leukocyte Esterase Urine RBC Urine WBC Urine Bacteria Urine Other 07/12/16 07/12/16 07/12/16 18:27 18:57 20:11 WBC RBC Hgb Hct MCV MCH MCHC RDW Plt Count MPV Gran % Lymph % (Auto) [place] % (Auto) Eos % (Auto) Baso % (Auto) Gran # Lymph # [place] # Eos # Baso # pO2 VBG pH VBG pCO2 VBG HCO3 VBG Total CO2 VBG O2 Sat (Calc) VBG Base Excess VBG Potassium Sodium Chloride Glucose Lactate FiO2 Potassium Carbon Dioxide Anion Gap BUN Creatinine Est GFR ( Amer) Est GFR (Non-Af Amer) POC Glucose (mg/dL) > 500 H* 467 H* 394 H Random Glucose Hemoglobin A1c Lactic Acid Uric Acid Calcium Phosphorus Magnesium Total Bilirubin Direct Bilirubin AST ALT Alkaline Phosphatase Lactate Dehydrogenase Total Creatine Kinase Troponin I Total Protein Albumin Globulin Albumin/Globulin Ratio Triglycerides Cholesterol LDL Cholesterol Direct HDL Cholesterol Vitamin B12 25-OH Vitamin D Total Folate Homocysteine Procalcitonin Free T4 Thyroxine (T4) TSH 3rd Generation Venous Blood Potassium Urine Color Urine Appearance Urine pH Ur Specific [place] Urine Protein Urine Glucose (UA) Urine Ketones Urine Blood Urine Nitrate Urine Bilirubin Urine Urobilinogen Ur Leukocyte Esterase Urine RBC Urine WBC Urine Bacteria Urine Other 07/12/16 07/12/16 07/12/16 21:04 21:09 22:03 WBC RBC Hgb Hct MCV MCH MCHC RDW Plt Count MPV Gran % Lymph % (Auto) [place] % (Auto) Eos % (Auto) Baso % (Auto) Gran # Lymph # [place] # Eos # Baso # pO2 VBG pH VBG pCO2 VBG HCO3 VBG Total CO2 VBG O2 Sat (Calc) VBG Base Excess VBG Potassium Sodium 142 Chloride 105 Glucose Lactate FiO2 Potassium 4.3 Carbon Dioxide 22 Anion Gap 19 BUN 64 H Creatinine 3.0 H Est GFR ( Amer) 29 Est GFR (Non-Af Amer) 24 POC Glucose (mg/dL) 370 H 325 H Random Glucose 359 H* D Hemoglobin A1c Lactic Acid Uric Acid Calcium 8.2 L Phosphorus Magnesium Total Bilirubin Direct Bilirubin AST ALT Alkaline Phosphatase Lactate Dehydrogenase Total Creatine Kinase Troponin I Total Protein Albumin Globulin Albumin/Globulin Ratio Triglycerides Cholesterol LDL Cholesterol Direct HDL Cholesterol Vitamin B12 25-OH Vitamin D Total Folate Homocysteine Procalcitonin Free T4 Thyroxine (T4) TSH 3rd Generation Venous Blood Potassium Urine Color Urine Appearance Urine pH Ur Specific [place] Urine Protein Urine Glucose (UA) Urine Ketones Urine Blood Urine Nitrate Urine Bilirubin Urine Urobilinogen Ur Leukocyte Esterase Urine RBC Urine WBC Urine Bacteria Urine Other 07/12/16 07/12/16 07/13/16 22:08 23:06 00:06 WBC RBC Hgb Hct MCV MCH MCHC RDW Plt Count MPV Gran % Lymph % (Auto) [place] % (Auto) Eos % (Auto) Baso % (Auto) Gran # Lymph # [place] # Eos # Baso # pO2 30 VBG pH 7.30 L VBG pCO2 46.0 VBG HCO3 22.6 VBG Total CO2 24.0 VBG O2 Sat (Calc) 62.1 VBG Base Excess -4.0 L VBG Potassium 4.2 Sodium 144.0 Chloride 113.0 H Glucose 357 H Lactate 2.4 H FiO2 21.0 Potassium Carbon Dioxide Anion Gap BUN Creatinine Est GFR ( Amer) Est GFR (Non-Af Amer) POC Glucose (mg/dL) 271 H 252 H Random Glucose Hemoglobin A1c Lactic Acid Uric Acid Calcium Phosphorus Magnesium Total Bilirubin Direct Bilirubin AST ALT Alkaline Phosphatase Lactate Dehydrogenase Total Creatine Kinase Troponin I Total Protein Albumin Globulin Albumin/Globulin Ratio Triglycerides Cholesterol LDL Cholesterol Direct HDL Cholesterol Vitamin B12 25-OH Vitamin D Total Folate Homocysteine Procalcitonin Free T4 Thyroxine (T4) TSH 3rd Generation Venous Blood Potassium 4.2 Urine Color Urine Appearance Urine pH Ur Specific [place] Urine Protein Urine Glucose (UA) Urine Ketones Urine Blood Urine Nitrate Urine Bilirubin Urine Urobilinogen Ur Leukocyte Esterase Urine RBC Urine WBC Urine Bacteria Urine Other 07/13/16 07/13/16 07/13/16 00:20 01:10 02:19 WBC RBC Hgb Hct MCV MCH MCHC RDW Plt Count MPV Gran % Lymph % (Auto) [place] % (Auto) Eos % (Auto) Baso % (Auto) Gran # Lymph # [place] # Eos # Baso # pO2 VBG pH VBG pCO2 VBG HCO3 VBG Total CO2 VBG O2 Sat (Calc) VBG Base Excess VBG Potassium Sodium 145 Chloride 107 Glucose Lactate FiO2 Potassium 3.8 Carbon Dioxide 22 Anion Gap 20 BUN 63 H Creatinine 3.0 H Est GFR ( Amer) 29 Est GFR (Non-Af Amer) 24 POC Glucose (mg/dL) 257 H 185 H Random Glucose 253 H Hemoglobin A1c Lactic Acid Uric Acid Calcium 8.5 Phosphorus Magnesium Total Bilirubin 0.7 Direct Bilirubin AST 17 ALT 31 Alkaline Phosphatase 103 Lactate Dehydrogenase 462 Total Creatine Kinase 107 Troponin I 0.40 H* D Total Protein 6.8 Albumin 3.5 Globulin 3.3 Albumin/Globulin Ratio 1.1 Triglycerides Cholesterol LDL Cholesterol Direct HDL Cholesterol Vitamin B12 25-OH Vitamin D Total Folate Homocysteine Procalcitonin Free T4 Thyroxine (T4) TSH 3rd Generation Venous Blood Potassium Urine Color Urine Appearance Urine pH Ur Specific [place] Urine Protein Urine Glucose (UA) Urine Ketones Urine Blood Urine Nitrate Urine Bilirubin Urine Urobilinogen Ur Leukocyte Esterase Urine RBC Urine WBC Urine Bacteria Urine Other 07/13/16 07/13/16 07/13/16 03:01 04:02 05:00 WBC 17.9 H RBC 3.63 Hgb 10.5 L Hct 31.2 L MCV 86.0 MCH 28.9 MCHC 33.7 RDW 13.9 Plt Count 317 MPV 10.4 Gran % 73.5 H Lymph % (Auto) 13.8 L Stewart % (Auto) 11.4 H Eos % (Auto) 0.9 L Baso % (Auto) 0.4 Gran # 13.14 H Lymph # 2.5 Stewart # 2.0 H Eos # 0.2 Baso # 0.07 pO2 VBG pH VBG pCO2 VBG HCO3 VBG Total CO2 VBG O2 Sat (Calc) VBG Base Excess VBG Potassium Sodium Chloride Glucose Lactate FiO2 Potassium Carbon Dioxide Anion Gap BUN Creatinine Est GFR ( Amer) Est GFR (Non-Af Amer) POC Glucose (mg/dL) 158 H 133 H Random Glucose Hemoglobin A1c Lactic Acid Uric Acid Calcium Phosphorus Magnesium Total Bilirubin Direct Bilirubin AST ALT Alkaline Phosphatase Lactate Dehydrogenase Total Creatine Kinase Troponin I Total Protein Albumin Globulin Albumin/Globulin Ratio Triglycerides Cholesterol LDL Cholesterol Direct HDL Cholesterol Vitamin B12 25-OH Vitamin D Total Folate Homocysteine Procalcitonin Free T4 Thyroxine (T4) TSH 3rd Generation Venous Blood Potassium Urine Color Urine Appearance Urine pH Ur Specific [place] Urine Protein Urine Glucose (UA) Urine Ketones Urine Blood Urine Nitrate Urine Bilirubin Urine Urobilinogen Ur Leukocyte Esterase Urine RBC Urine WBC Urine Bacteria Urine Other 07/13/16 07/13/16 07/13/16 05:10 06:00 06:00 WBC RBC Hgb Hct MCV MCH MCHC RDW Plt Count MPV Gran % Lymph % (Auto) Stewart % (Auto) Eos % (Auto) Baso % (Auto) Gran # Lymph # Stewart # Eos # Baso # pO2 47 VBG pH 7.35 VBG pCO2 38.0 L VBG HCO3 21.0 VBG Total CO2 22.2 VBG O2 Sat (Calc) 87.8 H VBG Base Excess -4.2 L VBG Potassium 3.5 L Sodium 144 144.0 Chloride 111 H 117.0 H Glucose 196 H Lactate 1.3 FiO2 21.0 Potassium 3.5 L Carbon Dioxide 20 L Anion Gap 17 BUN 61 H Creatinine 3.2 H Est GFR ( Amer) 27 Est GFR (Non-Af Amer) 22 POC Glucose (mg/dL) 160 H Random Glucose 184 H Hemoglobin A1c Lactic Acid Uric Acid Calcium 7.9 L Phosphorus 4.5 Magnesium 2.0 Total Bilirubin 0.5 Direct Bilirubin 0.5 H AST 18 ALT 32 Alkaline Phosphatase 92 Lactate Dehydrogenase 421 Total Creatine Kinase 115 Troponin I 0.33 H* Total Protein 6.0 Albumin 2.9 L Globulin 3.1 Albumin/Globulin Ratio 0.9 L Triglycerides Cholesterol LDL Cholesterol Direct HDL Cholesterol Vitamin B12 25-OH Vitamin D Total Folate Homocysteine Procalcitonin Free T4 Thyroxine (T4) TSH 3rd Generation Venous Blood Potassium 3.5 L Urine Color Urine Appearance Urine pH Ur Specific [place] Urine Protein Urine Glucose (UA) Urine Ketones Urine Blood Urine Nitrate Urine Bilirubin Urine Urobilinogen Ur Leukocyte Esterase Urine RBC Urine WBC Urine Bacteria Urine Other 07/13/16 07/13/16 07/13/16 06:40 07:08 07:58 WBC RBC Hgb Hct MCV MCH MCHC RDW Plt Count MPV Gran % Lymph % (Auto) Stewart % (Auto) Eos % (Auto) Baso % (Auto) Gran # Lymph # Stewart # Eos # Baso # pO2 VBG pH VBG pCO2 VBG HCO3 VBG Total CO2 VBG O2 Sat (Calc) VBG Base Excess VBG Potassium Sodium Chloride Glucose Lactate FiO2 Potassium Carbon Dioxide Anion Gap BUN Creatinine Est GFR ( Amer) Est GFR (Non-Af Amer) POC Glucose (mg/dL) 247 H 317 H 299 H Random Glucose Hemoglobin A1c Lactic Acid Uric Acid Calcium Phosphorus Magnesium Total Bilirubin Direct Bilirubin AST ALT Alkaline Phosphatase Lactate Dehydrogenase Total Creatine Kinase Troponin I Total Protein Albumin Globulin Albumin/Globulin Ratio Triglycerides Cholesterol LDL Cholesterol Direct HDL Cholesterol Vitamin B12 25-OH Vitamin D Total Folate Homocysteine Procalcitonin Free T4 Thyroxine (T4) TSH 3rd Generation Venous Blood Potassium Urine Color Urine Appearance Urine pH Ur Specific [place] Urine Protein Urine Glucose (UA) Urine Ketones Urine Blood Urine Nitrate Urine Bilirubin Urine Urobilinogen Ur Leukocyte Esterase Urine RBC Urine WBC Urine Bacteria Urine Other 07/13/16 07/13/16 09:00 09:00 WBC RBC Hgb Hct MCV MCH MCHC RDW Plt Count MPV Gran % Lymph % (Auto) [place] % (Auto) Eos % (Auto) Baso % (Auto) Gran # Lymph # Stewart # Eos # Baso # pO2 VBG pH VBG pCO2 VBG HCO3 VBG Total CO2 VBG O2 Sat (Calc) VBG Base Excess VBG Potassium Sodium 141 Chloride 109 H Glucose Lactate FiO2 Potassium 3.9 Carbon Dioxide 20 L Anion Gap 16 BUN 63 H Creatinine 3.2 H Est GFR ( Amer) 27 Est GFR (Non-Af Amer) 22 POC Glucose (mg/dL) Random Glucose 262 H Hemoglobin A1c Lactic Acid 1.4 Uric Acid Calcium 7.9 L Phosphorus Magnesium Total Bilirubin Direct Bilirubin AST ALT Alkaline Phosphatase Lactate Dehydrogenase Total Creatine Kinase Troponin I Total Protein Albumin Globulin Albumin/Globulin Ratio Triglycerides Cholesterol LDL Cholesterol Direct HDL Cholesterol Vitamin B12 25-OH Vitamin D Total Folate Homocysteine Procalcitonin Free T4 Thyroxine (T4) TSH 3rd Generation Venous Blood Potassium Urine Color Urine Appearance Urine pH Ur Specific [place] Urine Protein Urine Glucose (UA) Urine Ketones Urine Blood Urine Nitrate Urine Bilirubin Urine Urobilinogen Ur Leukocyte Esterase Urine RBC Urine WBC Urine Bacteria Urine Other EKG/Cardiology Studies: Cardiology / EKG Studies 07/13/16 06:15 EKG [ELECTROCARDIOGRAM] Stat Comment: Reason For Exam: CAD/AMI 07/14/16 07:00 EKG [ELECTROCARDIOGRAM] DAILY Comment: Reason For Exam: CAD/AMI 07/15/16 07:00 EKG [ELECTROCARDIOGRAM] DAILY Comment: Reason For Exam: CAD/AMI 07/16/16 07:00 EKG [ELECTROCARDIOGRAM] DAILY Comment: Reason For Exam: CAD/AMI 07/17/16 07:00 EKG [ELECTROCARDIOGRAM] DAILY Comment: Reason For Exam: CAD/AMI 07/18/16 07:00 EKG [ELECTROCARDIOGRAM] DAILY Comment: Reason For Exam: CAD/AMI Fingerstick Blood Sugar Results: 247 Assessment/Plan - Assessment and Plan (Free Text) Plan: 35 years old male, with type 1 DM since 10 y/o, bed bound and chronic lópez after the 6th strokes (in 2013), Hx DVT not on anticoagulant, prior ME x 2, CHF , admitted to ICU for DKA likely from infection secondary to UTI and skipping levemir, r/o stroke, r/o ME. EKG suspicious of PE. CLIFTON on CKD 4 likely pre- renal due to dehydration from DKA/UTI and decrease PO intake. Pt was lethargic. CXR showed elevated L hemidiaphragm with prominent contained gastric bubbles. NGT suction 75cc brownish residual. (+) vomiting, cannot tolerate PO meds Neuro - Mentation improves. STILL NOT Back to baseline AAOx3. Need POA to consent for procedure. - Aspiration precaution - Prednisolon, Polymyxin/Trimethoprim eye drop, L eye QID - Mood: ALL ON HOLD - sertraline 50 daily, Trazodone, Xanax 0.5 bid - Lower back pain: flexeril 10 TID, oxycodone 10 tid prn for lbp - Gabapentin 600 TID Cardio - Hx ME, resume asa, plavix, Labetalol 200 BID - Labetalol PRN - HOLD lasix 20, lisinopril 10, - Trending Cardiac enzyme - PE ? Pulm - Maintain SaO2 92-95% - Bronchitis ? GI - NGT on LIS to decompress. D/C because pt cannot tolerate - Colace and Miralax PRN; Zofran 4q4 PRN; - NPO for now except PO meds__NAUSEA - Protonix 40 po; Reglan 10 IVP PRN Renal - CLIFTON on CKD; 40cc/hr - Pending uric acid to r/o intrinsic cause - IVF - flomax 0.4mg PO Endo - Pending A1C, Glycomark - Accu check, BMP q3, insulin gtt - Pending beta hydroxybutyate - synthroid 175 mcg daily - vit d3 Heme - Pending TSH/T4, Lipid panel, vitamin D - Pending B13, folate - Hypercoagulable work up: homocysteine Infectious - On Meropenem, day 2 - Received vanco and zosyn x 1 at ED Prophylasix - Heparin 5000 q8 - home protonix Dispo - poss LTC placement - Consider PT/OT after mentation improves S/R/D/w Dr. Benoit - Date & Time Date: 07/13/16 Time: 09:20
--- NOTE | 2016-07-13 09:40 | PN ---
DATE: 07/13/2016 The patient seen and examined at bedside. He is comfortable. He talks full sentences. He is not in respiratory or otherwise distress. PHYSICAL EXAMINATION: VITAL SIGNS: Blood pressure 185/90, oxygen saturation 99% on room air, heart rate 94, respiratory rate 20. HEAD AND NECK: Atraumatic. LUNGS: Clear to auscultation bilaterally. HEART: Regular rate and rhythm. S1, S2 normal. ABDOMEN: Soft, nontender, nondistended. MUSCULOSKELETAL: No C/C/E. NEUROLOGIC: The patient moves upper extremities spontaneously, not lower extremities. SKIN: Moist. PSYCHIATRIC: The patient is alert and oriented x 3. LABORATORIES: WBC 17.9, hemoglobin 10.5, platelet count 317. Sodium 144, potassium 3.5, chloride 111, carbon dioxide 20, BUN 61, creatinine 3.2, glucose 184. Troponin 0.33. Glucose 299. MEDICATIONS: Tylenol p.r.n., Xanax, aspirin, Plavix, D5 half normal saline with potassium at 150 mL per hour, Neurontin, heparin 5000 subQ q. 8, insulin drip, labetalol p.r.n., Synthroid, meropenem, Reglan, Zofran p.r.n., Protonix, eyedrops, Flomax, trazodone. ASSESSMENT AND PLAN: This is a 35-year-old gentleman who presented with diabetic ketoacidosis in the setting of diabetes mellitus type 1 since age 10. At present time, patient is on insulin drip and IV fluids. His white cell count most likely relates to his diabetic ketoacidosis and rather reactive. The patient is afebrile. Anion gap is still above 12. We will continue with insulin drip until anion gap is closed. We will continue with BMP every 4 hours and Accu-Chek every 1 hour. Blood culture, urine culture were sent. Procalcitonin is pending. The patient has a poor IV access. Peripherally inserted central catheter line will be placed. We will continue to target euvolemia, euglycemia, normothermia and oxygen saturation more than 90%. We will continue with deep venous thrombosis and gastrointestinal prophylaxis. Addendum: procalcitonin came >9, urine culture came back positive for GNR->will start Abx, ID consult is appreciated. Patient is comfortable, alert and oriented x 3 and beside mild hypertension hemodynamically relatively stable. Troponin is slightly elevated-->unlikely acute cardiac event, more likely septic cardiomyopathy in combination with CLIFTON--discussed with cardio. Heparin will be started though for stroke prevention in the setting of paroxysmal afib. Addendum: gap closed, levemir started, insulin drip stopped 1 hour later, RISS q4 hrs started ccm time 40 min Erwin Benoit MD cc: [id number] TT: 07/13/2016 09:38:59 Confirmation # [id number] Dictation # [id number] en MTDD
[2016-07-13] MEDS: Meropenem 1g/NS 100mL IVPB 1 GM/100 ML PIGGYBACK IVPB SCH ×2 (09:47→22:12)
[2016-07-13] MEDS ORDERED: Pantoprazole 40 mg EC Tab PO SCH (10:00)
[2016-07-13] MEDS: PrednisoLONE 1% Opht Susp(5 ml) OS SCH ×5 (10:00→22:00)
--- NOTE | 2016-07-13 10:00 | CON ---
DATE: 07/13/2016 CARDIOLOGY CONSULTATION HISTORY: The patient is a 35-year-old male who presents with DKA. PAST MEDICAL HISTORY: Notable for hypertension, CVA, questionable myocardial infarction in the past, as well as neuropathy. He is also noted to have progressive renal insufficiency. The patient also admits to occasional chest pain, but is not able to give a good history. He suffers from hypertension, diabetes mellitus, questionable hypercholesterolemia. SOCIAL HISTORY AND REVIEW OF SYSTEMS: Unavailable. PHYSICAL EXAMINATION: VITAL SIGNS: Blood pressure is 160/81. The heart rate is in the 90s. NECK: Negative JVD. LUNGS: Decreased breath sounds bilaterally. HEART: Reveals S1, S2. EXTREMITIES: Without edema. EKG shows diffuse ST-T changes with Q-waves in the inferior leads, as well as ST elevation in 3 consi stent with a recent inferior wall IL. LABORATORY DATA: Hemoglobin is 10.5. White count is 17.9. BUN and creatinine are 63 and 3.2 with a glucose of 262. IMPRESSION: 1. Diabetic ketoacidosis versus diabetes out of control. 2. Progressive renal insufficiency. 3. Recent inferior wall myocardial infarction. 4. Coronary artery disease. 5. Questionable cerebrovascular accident in the past. 6. Hypertension. Given these findings, we cannot take the patient to the [facility] immediately because of his progressi ve renal failure. We will treat him with medical therapy at this time. This should include aspirin, Plavix, beta-blockers, as well as IV heparin. Echocardiogram has been ordered. Andriy Chandler MD cc: [phone] TT: 07/13/2016 10:00:10 Confirmation # [id number] Dictation # [id number] alon
--- NOTE | 2016-07-13 10:09 | PN ---
DATE: 07/13/2016 The patient is seen in room CCU bed 1. The patient is lying in the bed. The patient is feeling nauseous. The patient stated that he is feeling much better since yesterday. Overnight nurse's notes were reviewed. PHYSICAL EXAMINATION: VITAL SIGNS: T-max 99.6. Telemetry shows sinus rhythm, sinus tachycardia, heart rate in 90-95. Blood pressure is 160/81, 163/83, 140/85, 181/93. Respirations 24-27-21. O2 sat is 97%-96%. HEAD: Normocephalic, atraumatic. HEENT: Shows pink conjunctivae. Anicteric sclerae. No oropharyngeal lesion. NECK: No neck rigidity. CHEST: Symmetrical. LUNGS: Shows occasional rhonchi upper lung rg. CARDIOVASCULAR: S1, S2, regular rhythm. ABDOMEN: Soft, positive bowel sounds. GENITALIA: Male. RECTAL: Deferred. GENITOURINARY: Positive Lira catheter. EXTREMITIES: Shows positive heel cushions. MUSCULOSKELETAL: Shows a body mass index of 31. NEUROLOGIC: Cranial nerves II-XII limited. GAIT: The patient is lying in the bed. PSYCHIATRIC: Positive for history of anxiety, depression. BODY MASS INDEX: 39. VASCULAR: Palpable pulses. DIAGNOSTICS: 07/13, WBC 17.9, hemoglobin and hematocrit 10.5 and 31.2, platelets 317, granulocytes 73. Repeat VBG is pH of 7.35, pCO2 38, bicarb is 21. Fingerstick blood sugar is 299, 317, 247, 160, 133, 158, 185. Sodium 144, potassium is down to 3.5 from 6.9. Chloride is 111, CO2 is up to 20 from 9 yesterday, anion gap is down to 17 from 35, BUN 61, creatinine is 3.2 from 2.8. Hemoglobin A1c 8.2. Lactic acid is . Uric acid is elevated at 8.6, calcium 7.9, phosphorus 4.5, magnesium 2.0. LFTs are normal. Troponin has peaked up to 0.40. Albumin 2.9. Homocysteine 12.2. Vitamin D is less than 12.8. Thyroid panel is negative. Procalcitonin level 2.5. Cholesterol 198, LDL 114. IMPRESSION AND PLAN: 1. Diabetic ketoacidosis with increased anion gap metabolic acidosis and high anion gap metabolic acidosis. 2. Type 1 insulin-dependent diabetes mellitus. 3. Uncontrolled decompensated type 1 insulin-dependent diabetes mellitus with hemoglobin A1c of greater than 8. 4. Diabetic microvascular complication with diabetic retinopathy, diabetic nephropathy, diabetic polyneuropathy and vasculopathy, history of diabetic macrovascular complication of coronary artery disease, peripheral vascular disease and vasculopathy, history of cerebrovascular accident, history of diabetic autonomic neuropathy and neurogenic bladder. 5. Hypertension. 6. Tachycardia. 7. Tachypnea. 8. Morbid obesity with elevated body mass index of 39. 9. Sepsis with hyperprocalcitonemia and lactic acidosis and increased anion gap and high anion gap metabolic acidosis. 10. Leukocytosis with granulocytosis. 11. Normocytic anemia. 12. Severe metabolic acidosis with lactic acidosis. 13. Status post nonhemolyzed hyperkalemia. 14. Acute kidney injury and acute renal failure. 15. Uncontrolled type 1 insulin-requiring diabetes mellitus with diabetic ketoacidosis and hyperglycemia and hemoglobin A1c of 8.2. 16. Hyperuricemia. 17. Questionable non-ST elevation myocardial infarction with elevated troponin. 18. Hypovitaminosis D. 19. Hyperprocalcitonemia. 20. Homocysteinemia. 21. History of thyroidism. 22. Lactic acidosis. 23. Status post hyperkalemia. 24. Hypokalemia at present. 25. Proteinuria, glycosuria, microscopic hematuria, pyuria, funguria. 26. Sinus tachycardia. 27. Severe dehydration. 28. Cerebral cortical atrophy of the brain. 29. Possible diabetic gastroparesis with nausea. 30. Sepsis with hyperprocalcitonemia and lactic acidosis. 31. History of myocardial infarction, history of type 1 diabetes mellitus, history of cerebrovascular accident, history of deep venous thrombosis, history of chronic constipation, history of diabetic micro and macrovascular complications. 32. History of insomnia, depression, anxiety. 33. Chronic kidney disease stage IV. 34. Hypertension. 35. Obesity. 1. Acute diabetic ketoacidosis with uncontrolled diabetes and hyperglycemia. 2. Non-hemolyzed hyperkalemia. 3. Increased anion gap metabolic acidosis. 4. Acute renal failure. 5. Uncontrolled diabetes mellitus with diabetic ketoacidosis, nonhemolyzed hyperkalemia and severe hyperglycemia. 6. Questionable sepsis with leukocytosis and granulocytosis. 7. Normocytic anemia. 8. Thrombocytosis. 9. Sinus tachycardia. 10. History of obesity, history of ____ diabetes mellitus, history of insomnia , history of depression, history of hypertension, history of diabetic neuropathy , history of anxiety disorder, history of neurogenic bladder, history of hypothyroidism, history of chronic back pain syndrome, history of depression, history of cerebrovascular accident, history of hypovitaminosis D, history of hypertension, history of obesity, history of gait dysfunction, history of questionable paraplegia. PLAN: At this time, patient has been ordered repeat lactic acid. The patient has been ordered serial cardiac enzymes, serial labs, lactic acid, CBC. Blood and urine cultures are received. CONSULTATIONS: Endocrinology, infectious disease, nephrology, podiatry, cardiology, interventional radiology for a PICC line and psychiatry. Procalcitonin level repeat is pending. CURRENT MEDICATIONS: The patient is on Desyrel or trazodone 50 mg daily. The patient is on Drisdol, vitamin D supplementation, aspirin 81 daily, Flomax 0.4 mg daily, insulin drip is to be continued at present, Meropenem 1 g IV q. 12 ordered by infectious disease, Neurontin 600 three times a day, Plavix 75 mg daily. The patient's potassium was supplemented. The patient is on Protonix 40 p.o. daily, Reglan 10 mg IV q. 6. The patient is on IV fluid at 100 mL an hour. Synthroid 175 mcg daily, labetalol 10 mg IV q. 6 p.r.n. and labetalol 200 twice a day, Tylenol p.r.n. The patient is on vitamin D3 2000 units daily, Xanax 0.5 twice a day, Zofran 4 mg IV q. 4 p.r.n., Zoloft 50 mg daily, Zosyn was given 1 dose yesterday. The patient has been ordered bladder ultrasound, renal ultrasound. EKG repeat ordered. Echo with Doppler ordered. The patient is on IV fluid D5 half with 20 mEq KCl at 150 mL an hour. At present, we are awaiting further recommendation from all the specialists. The patient was seen by endocrinology , nephrology. The patient is still awaiting to be seen by cardiology, infectious disease, podiatry, interventional radiology and psychiatry. At present, patient's condition is critical. Prognosis is guarded. The patient 's overall prognosis is guarded to poor. Dictated and electronically signed, not read. Mikey Zhang MD cc: [id number] TT: 07/13/2016 10:08:14 Confirmation # [id number] Dictation # [id number] en MTDD
[2016-07-13 11:14] LABS: ADD MANUAL DIFF? NO
[2016-07-13] MEDS ORDERED: Lidocaine 2% Inj (20ml) ONE (11:14)
[2016-07-13 11:17] LABS: BASO # 0.08 K/mm3 (0.0-2.0); BASO % 0.4 % (0.0-3.0); EOS # 0.2 (0.0-0.7); EOS % 0.9 % (1.5-5.0); GRAN # 13.76 (1.4-6.5); GRAN % 77.3 % (50.0-68.0); HEMATOCRIT 30.7 % (42.0-52.0); LYMPH # 2.5 (1.2-3.4); LYMPH % 13.9 % (22.0-35.0); MEAN CORPUSCULAR HEMOGLOBIN 29.2 pg (25.0-35.0); MEAN CORPUSCULAR HGB CONC 33.6 g/dl (31.0-37.0); MEAN PLATELET VOLUME 10.4 fl (7.0-11.0); MONO # 1.3 (0.1-0.6); MONO % 7.5 % (1.0-6.0); PLATELET COUNT 493 10^3/uL (120.0-450.0); RED CELL DISTRIBUTION WIDTH 14.1 % (11.5-14.5); WHITE BLOOD COUNT 17.8 10^3/ul (4.5-11.0)
[2016-07-13 11:19] LABS: INR 1.1 (0.93-1.08); PARTIAL THROMBOPLASTIN TIME 28.3 Seconds (23.7-30.8)
--- NOTE | 2016-07-13 12:12 | CARD ---
APPROVED REPORT EKG Measurement Heart [id number] SD [id number] <Conclusion> Normal sinus rhythm Nonspecific ST and T wave abnormality Abnormal ECG
--- NOTE | 2016-07-13 12:48 | CP.PCM.PN ---
Subjective - Date & Time of Evaluation Date of Evaluation: 07/13/16 Time of Evaluation: 12:36 - Subjective Subjective: Follow up nephrology note Assessment: Acute Kidney Injury likely due to Hyperglycemia and dehydration Chronic Kidney Disease Stage 4 with 10 gm proteinuria likely due to diabetic nephropathy, atrophic Rt Kidney, hx of recurrent AKIs uncontrolled severe Hypertension severe HAGMA with metabolic alkalosis with respi compensation [due to diabetic ketoacidosis]: IMPROVED Hyperkalemia (due to combination of CKD, hyperglycemia/DKA and acidosis): RESOLVED chronic Anemia, , hx of CVA, CAD, chronic indwelling lópez Plan No acute need for renal replacement therapy at this time. Hypertension control: pt is NPO, can give IV Labetalol 120 mg q 6 hr. Patient at home on ACEI as lisinopril and lasix: hold both for now. Monitor I/O, daily weights and renal function. Check spot protein/creatinine and albumin/creatinine ratio. will check renal artery doppler when possible to r/o MAIKEL considering his Rt renal atrophy. also ordered for renal/bladder sonogram continue with IVF as ordered. Keep serum K close to 4.0 meq/L Dose meds/antibiotics for reduced GFR 20-25. Avoid fleets enema/magnesium based laxatives. Avoid nephrotoxins/NSAIDs/ iodinated contrast (unless needed emergently) Glycemic control, renal diet Further work up for as per primary team. discussed with resident d/w father bedside Thanks for allowing me to participate in care of your patient. Will follow patient with you. Please call if any Qs Dr Artis Mendoza Office: [phone] Subjective: no new complaints at this time. Denies chest pain, palpitations. reports some SOB and nausea no vomiting. noted events overnight. he had picc line left arm. also started on heparin drip for concern of PE Exam: pt comfortable, no acute distress. lying in bed. Vitals reviewed and noted as below Lungs: clear to auscultation, b/l air entry + and equal, no use of accessory muscles CVS: s1s2 normal. no rub/gallop. Abdomen: soft non tender obese no organomegaly Ext 1-2+ edema Neuro: AO x 3 , chronic leg weakness. he is chronically bed bound. Labs/imaging/EKG reviewed. Past medical history, past surgical history, family history, social history, allergy reviewed and noted as below 2015 renal sono: Rt kidney atrophic 7 cm and left kidney hypertrophy GN work up as C3, C4, DINA, Anti dsDNA, ANCA, Hep B and Hep C serology has been neg in past UA 3+ protein with small to moderate blood (has chronic lópez) and 10 gram proteinuria on spot pro/cr ratio uric acid 8.6 and CK 80 Objective - Vital Signs/Intake and Output Vital Signs (last 24 hours): Temp Pulse Resp BP Pulse Ox 99.6 F 100 H 20 160/81 H 97 07/13/16 01:19 07/13/16 06:40 07/13/16 06:40 07/13/16 06:00 07/13/16 06:40 Intake and Output: 07/13/16 07/13/16 06:59 18:59 Intake Total 1893.0 8 Output Total 400 Balance 1493.0 8 - Medications Medications: Current Medications Acetaminophen (Tylenol 325mg Tab) 650 mg PO Q6H PRN PRN Reason: Headache Last Admin: 07/13/16 01:19 Dose: 650 mg Alprazolam (Xanax) 0.5 mg PO BID [facility] PRN Reason: Protocol Last Admin: 07/12/16 18:08 Dose: Not Given Aspirin (Ecotrin) 81 mg PO DAILY [facility] Last Admin: 07/13/16 09:20 Dose: Not Given Cholecalciferol (Vitamin D) 2,000 iu PO DAILY [facility] Last Admin: 07/13/16 09:24 Dose: Not Given Clopidogrel Bisulfate (Plavix) 75 mg PO DAILY [facility] Last Admin: 07/12/16 13:58 Dose: 75 mg Ergocalciferol (Drisdol 50,000 Intl Units Cap) 1 cap PO Q7D [facility] Last Admin: 07/13/16 09:20 Dose: Not Given Gabapentin (Neurontin) 600 mg PO TID [facility] PRN Reason: Protocol Last Admin: 07/12/16 18:08 Dose: Not Given Insulin Human Regular 100 (units/ Sodium Chloride) 100 mls @ 3 mls/hr IV .Q24H PRN; Protocol; 3 UNITS/HR PRN Reason: TITRATE PER MD ORDER Last Titration: 07/13/16 09:00 Dose: 3 units/hr, 3 mls/hr Meropenem 1g/NS 100mL IVPB (Meropenem 1g/Ns 100ml Ivpb) 1 gm in 100 mls @ 100 mls/hr IVPB Q12 [facility] PRN Reason: Protocol Stop: 07/19/16 19:59 Last Admin: 07/13/16 09:47 Dose: 100 mls/hr Potassium Chloride/Dextrose/Sod Cl (Potassium Chl 20 Meq In D5-1/2ns) 1,000 mls @ 150 mls/hr IV .Q6H40M [facility] Last Admin: 07/13/16 02:55 Dose: 150 mls/hr Heparin Sodium/Sodium Chloride (Heparin 37320 Units/250ml 1/2 Normal Saline) 25 ,000 units in 250 mls @ 13.172 mls/hr IV .[id number] [facility]; 12 UNITS/KG/HR PRN Reason: Protocol Labetalol HCl (Trandate) 200 mg PO BID [facility] Last Admin: 07/12/16 18:08 Dose: Not Given Labetalol HCl (Trandate) 10 mg IV Q6 PRN PRN Reason: Heart rate Last Admin: 07/13/16 01:26 Dose: 10 mg Levothyroxine Sodium (Synthroid) 175 mcg PO DAILY [facility] Last Admin: 07/12/16 16:40 Dose: Not Given Metoclopramide HCl (Reglan) 10 mg IVP Q6H [facility] Last Admin: 07/13/16 09:46 Dose: 10 mg Ondansetron HCl (Zofran Inj) 4 mg IVP Q4H PRN PRN Reason: Nausea/Vomiting Last Admin: 07/13/16 06:59 Dose: 4 mg Prednisolone Acetate (Pred Forte 1% Opht Susp) 0 ml OS QID [facility] Last Admin: 07/13/16 00:00 Dose: 1 drop Sertraline HCl (Zoloft) 50 mg PO DAILY [facility] Last Admin: 07/12/16 16:45 Dose: Not Given Tamsulosin HCl (Flomax) 0.4 mg PO DAILY [facility] Last Admin: 07/13/16 09:20 Dose: Not Given Trazodone HCl (Desyrel) 50 mg PO DAILY [facility] - Labs Labs: 07/13/16 10:40 07/13/16 09:00 PT 11.9 Seconds (9.9-11.8) H 07/13/16 10:50 INR 1.10 (0.93-1.08) H 07/13/16 10:50 APTT 28.3 Seconds (23.7-30.8) 07/13/16 10:50
[2016-07-13] MEDS: Heparin25000 units/250ml 1/2NS 25,000 UNITS/250 ML BAG IV SCH (13:00)
[2016-07-13 13:04] LABS: ALB/GLOB RATIO 0.9 (1.1-1.8); BILIRUBIN,TOTAL 0.5 mg/dL (0.2-1.3); CALCIUM 7.9 mg/dL (8.4-10.5); MAGNESIUM 1.9 mg/dL (1.7-2.2); PHOSPHOROUS 4.3 mg/dL (2.5-4.5); POTASSIUM 3.8 mmol/L (3.6-5.0)
[2016-07-13 13:17] LABS: TROPONIN I 0.19 ng/mL
[2016-07-13] MEDS ORDERED: Labetalol 5 mg/ml Inj 20ML IV SCH (14:00)
[2016-07-13] MEDS: Labetalol 5 mg/ml Inj 20ML IV SCH ×2 (14:00→18:00)
[2016-07-13] MEDS ORDERED: Insulin Detemir 100 units/ml Vial (Levemir) SC STA (14:21)
--- NOTE | 2016-07-13 14:21 | CON ---
DATE: 07/13/2016 The patient seen in the CCU 129, bed 1. CHIEF COMPLAINT: Weakness times several days. HISTORY OF PRESENT ILLNESS: This is a 35-year-old male with diabetes mellitus, cerebrovascular accid ent, hypertension, renal disease, anxiety, high cholesterol, coronary artery disease, myocardial infa rction, alcohol abuse, macular degeneration, urinary incontinence, self-catheterization who is admitt ed now on this admission with diagnosis of diabetic ketoacidosis and hyperkalemia. The patient was s een by me last month, actually on 06/07. Did have Klebsiella pneumoniae, urinary tract infection. Th e patient was seen in the Emergency Room yesterday by Dr. Khoi Bustillo, with nausea and weakness and dry heaves, low grade fevers. No chest pain. Mild cough. No headaches. PAST MEDICAL HISTORY: Significant for diabetes mellitus, hypertension, cerebrovascular accident, janie al disease, anxiety, high cholesterol, coronary artery disease, myocardial infarction, alcohol abuse, urinary incontinence, macular degeneration, history of Klebsiella pneumoniae, urinary tract infectio n. PAST SURGICAL HISTORY: Noncontributory. MEDICATIONS: Noted. PHYSICAL EXAMINATION: GENERAL: The patient is in bed. Overall comfortable. VITAL SIGNS: Temperature of 99.6, heart rate of 103, blood pressure is 160/80, respiratory rate of 2 4. HEENT: Unremarkable. NECK: Supple. LUNGS: Have decreased breath sounds. HEART: Normal S1, S2. ABDOMEN: Soft, nontender. EXTREMITIES: Examination of extremities are noted. LABORATORY EXAMINATION: Reveals a white count of 20,000, hemoglobin of 11, platelets of 524. Coagul ation is noted. INR of 1. BUN of 63, creatinine of 3.2. Glucose is 310. Procalcitonin is 2.45. C reatinine of 3.2. Dr. Willam Mendoza's progress note is reviewed. Dr. Andriy Chandler's consultation is reviewed. note is reviewed. Microbiology is reviewed. There is gram-negative carolee in the urine. The blood cu lture results are pending. Urine cultures are gram-negative carolee. ASSESSMENT AND PLAN: This is a 35-year-old male with multiple cerebrovascular accidents, paralysis, diabetes mellitus, hypertension, anxiety, coronary artery disease, myocardial infarction, macular deg eneration, urinary incontinence, alcohol abuse, who is ALLERGIC TO SULFA, now admitted with sepsis wi gram-negative carolee, urine as the source. Approximately a month ago, patient had Escherichia coli t hat was pansensitive in the urine. In 02/2016, the patient had Escherichia coli that was also pansen sitive. Will treat the patient with meropenem in this patient with severe sepsis with positive urina lysis and self-catheterization, now with sepsis with gram-negative carolee. Will check on the identifica tion of gram-negative carolee in the urine and treat the patient with meropenem and check on the urine cu lture in this patient with acute kidney injury. We will follow closely with you. Perry Bird MD cc: [phone] TT: 07/13/2016 14:20:52 Confirmation # [id number] Dictation # [id number] marek
--- NOTE | 2016-07-13 15:13 | PN ---
DATE: 07/13/2016 ROOM: 129, room 1 in CCU. This is a 35-year-old male with recent uncontrolled type 1 insulin-dependent diabetes, presenting her e with diabetic ketoacidosis and dehydration and is now being followed closely for metabolic manageme nt. His glycemic levels are fluctuating as with glucose levels ranging from 265-349 mg/dL. Latest c hemistries showed a BUN of 58, sodium 140, potassium 3.8, chloride 109, CO2 of 20, glucose 310 and cr eatinine 3.2. So, at this time, we will initiate basal and bolus insulin drug combination with a combination of Lev florian given at bedtime and Humalog given as 10 units t.i.d. before meals as ordered. We will add basa l insulin given as Levemir at 24 units subQ at bedtime daily as ordered. We will continue the IV hyd ration as given and obtain serial chemistries and supplement accordingly as needed. We will follow. Lexus Valdovinos MD cc: [id number] TT: 07/13/2016 15:12:24 Confirmation # [id number] Dictation # [id number] sn
[2016-07-13] MEDS ORDERED: Insulin Reg-MEDIUM-Coverage SC SCH (16:00)
[2016-07-13] MEDS: Insulin Lispro (humaLOG) LOW Coverage SC SCH ×2 (16:30→23:48)
[2016-07-13] MEDS: Levothyroxine 175 MCG TAB PO SCH (16:31)
[2016-07-13] MEDS: Insulin Lispro 1 UNITS/0.01 ML SC SCH (16:35)
--- NOTE | 2016-07-13 17:01 | CARD ---
APPROVED REPORT EXAM: Two-dimensional and M-mode echocardiogram with Doppler and color Doppler. INDICATION R/O ISCHEMIC CARDIOMYOPATHY 2D DIMENSIONS Left Atrium (2D)3.1 (1.6-4.0cm)IVSd1.2 (0.7-1.1cm) LVDd4.6 (3.9-5.9cm)PWd1.3 (0.7-1.1cm) LVDs3.3 (2.5-4.0cm)FS (%) 27.6 % LVEF (%)53.6 (>50%) M-Mode DIMENSIONS Aortic Root3.20 (2.2-3.7cm)Aortic Cusp Exc.1.70 (1.5-2.0cm) Aortic Valve AoV Peak Yriglhnd777.0cm/Alcides Peak GR.11mmHg Mitral Valve MV E Dbzytpcc457.0cm/sMV A Ezvpxqqs583.0cm/sE/A ratio0.8 TDI Lateral E' Peak V7.70cm/sMedial E' Peak V7.12cm/sE/Lateral E'13.9 E/Medial E'15.0 Pulmonary Valve PV Peak Linpauyt34.0cm/sPV Peak Grad.2mmHg Tricuspid Valve TR Peak [id number]/sRAP [id number] Peak Gr.10mmHg [id number] LEFT VENTRICLE The left ventricle is normal size. There is borderline concentric left ventricular hypertrophy. The left ventricular function is normal. The left ventricular ejection fraction is within the normal range. There is normal LV segmental wall motion. Transmitral Doppler flow pattern is Grade I-abnormal relaxation pattern. RIGHT VENTRICLE The right ventricle is normal size. There is normal right ventricular wall thickness. The right ventricular systolic function is normal. ATRIA The left atrium size is normal. The right atrium size is normal. AORTIC VALVE The aortic valve is not well visualized. No aortic regurgitation is present. MITRAL VALVE The mitral valve is normal in structure. There is no mitral valve regurgitation noted. TRICUSPID VALVE There is no pulmonary hypertension. GREAT VESSELS The aortic root is normal in size. PERICARDIAL EFFUSION There is no pericardial effusion. <Conclusion> The left ventricle is normal size. There is borderline concentric left ventricular hypertrophy. The left ventricular function is normal. The left ventricular ejection fraction is within the normal range. There is normal LV segmental wall motion. Transmitral Doppler flow pattern is Grade I-abnormal relaxation pattern.
--- NOTE | 2016-07-13 17:49 | PN ---
DATE: 07/13/2016 This a 35-year-old male seen for diabetic foot care. The patient is seen at bedside with his family. PAST MEDICAL HISTORY: Diabetes, CVA, hypertension, renal disease, coronary artery disease with histo ry of myocardial infarction. The patient also has a history of hypercholesterolemia, alcohol abuse, macular degeneration, urinary incontinence with catheterization and he was admitted for diabetic keto acidosis and hypokalemia. MEDICATIONS: Noted on the MAY. ALLERGIES: SULFA AND BACTRIM. The patient has also been diagnosed with a urinary tract infection and he has gram negative rods in h is urine. Blood cultures are negative. VITAL SIGNS: Noted with a temperature of 99 today, blood pressure is 130/75, respirations are 22, an d his ox sat is 99. LABORATORY DATA: Show white blood cell count today is 17.8, the H and H is 10.3 and 30.7 and his ermelinda telets are 493. The patient's chemistry shows a BUN and creatinine of 58 and 3.2. The glucose is 31 0. The patient's lower extremities were evaluated. He has got bilateral drop foot deformity, it is rigi d in nature. The patient is bedbound and does not walk. He has 2/4 palpable pedal pulses to his low er extremities bilateral. His capillary refill time is within normal limits as is the temperature gr adient to his feet He has decreased sensation to both of his feet to sharp dull discrimination and h e has no DTRs at the ankle. The patient has no open wounds on his feet. There is no redness or any hint of any pre-ulcerative areas either on his feet on his legs. The skin is soft and supple. He do es have mycosis of his toenails. There is some dried bloody drainage around a few of the nails, the hallux on the fifth toe on his left foot and the third toe on his right foot. He has no ulcerations. It looks like he had ingrown nails which had been taking now and this is just the residual some of the dried drainage that might have formed around the nail. There are no ingrown toenails at this asia e. The nails had been previously cut recently by Dr. Oakes at his home approximately 2-3 weeks ago. He does have some scaling around his toes and he has got some dry skin on his feet and posterior an kle. ASSESSMENT: A diabetic with neuropathy, onychomycosis and possible tinea around the toes. PLAN OF TREATMENT: Lotrimin to be applied twice a day to the toe area and Lac-Hydrin lotion was also ordered for the dry skin and scales. His heels are being offloaded at this time with heel pillows a nd he will be seen and followed on a p.r.n. basis. Marleny Patel DPM cc: [phone] TT: 07/13/2016 17:49:06 Confirmation # [id number] Dictation # [id number] alon
[2016-07-13] MEDS: Clotrimazole 1% Cream(30 gm) TOP SCH (18:00)
--- NOTE | 2016-07-13 19:25 | VASCULAR ---
PROCEDURE: Ultrasound and fluoroscopically placed left upper extremity PICC line. HISTORY: Diabetic ketoacidosis. Limited IV access. Needs PICC line. PHYSICIAN(S): Andriy Gomez MD. TECHNIQUE: The relative risks and indications of the procedure were explained to the patient's family and consent obtained. The patient was placed supine on the arteriogram table and the left arm prepped and draped in the usual sterile fashion. A tourniquet was applied to the left axilla. 1% Xylocaine was used to anesthetize the skin and soft tissues at the puncture site above the elbow. The left basilic vein was punctured under direct ultrasound guidance with a micropuncture set. A 0.018 guidewire was advanced centrally and used to measure the length to the SVC/RA junction. A 5 [place] dual-lumen PICC line 43 cm long was advanced to the SVC/RA junction. The catheter was flushed and secured. The patient tolerated the procedure well. IMPRESSION: 1. Ultrasound and fluoroscopically placed left upper extremity PICC line. A 5 [place] dual lumen PICC line 43 cm long was advanced to the SVC/RA junction.
[2016-07-13 19:30] LABS: CALCIUM 8.5 mg/dL (8.4-10.5); POTASSIUM 3.5 mmol/L (3.6-5.0)
[2016-07-13 19:44] LABS: TROPONIN I 0.16 ng/mL
[2016-07-13] MEDS: Insulin Detemir 100 units/ml Vial (Levemir) SC SCH (22:12)
[2016-07-14] MEDS ORDERED: Labetalol 5 mg/ml Inj 20ML IV ONE (02:07)
[2016-07-14] MEDS: Potassium Ch 20mEq in D5-1/2NS 1,000 ML IV SCH ×4 (02:46→20:09)
[2016-07-14 04:25] LABS: ADD MANUAL DIFF? NO
[2016-07-14 04:47] LABS: BILIRUBIN,DIRECT 0.5 mg/dL (0.0-0.4); BILIRUBIN,TOTAL 0.5 mg/dL (0.2-1.3); CALCIUM 8.2 mg/dL (8.4-10.5); MAGNESIUM 1.9 mg/dL (1.7-2.2); PHOSPHOROUS 3.8 mg/dL (2.5-4.5); POTASSIUM 3.4 mmol/L (3.6-5.0)
--- NOTE | 2016-07-14 04:57 | CP.PCM.PN ---
Subjective - Date & Time of Evaluation Date of Evaluation: 07/14/16 Time of Evaluation: 04:53 - Subjective Subjective: Patient was seen at bedside because his blood pressure was 199/95. Complains of little nausea, little nervous. Has no other complaints now. Denies chest pain, sob, dizziness, paraesthesia. Repeat BP now is 197/110. Medical record was reviewed. This 35 year old white male was admitted with nausea, headache. Has PMH of HTN , DM,morbid obesity, CVA, MT, angioplasty, diabetic neuropathy. Objective - Vital Signs/Intake and Output Vital Signs (last 24 hours): Temp Pulse Resp BP Pulse Ox 98.5 F 85 21 184/102 H 100 07/14/16 00:00 07/14/16 02:40 07/14/16 00:00 07/14/16 02:40 07/14/16 00:00 Intake and Output: 07/13/16 07/14/16 18:59 06:59 Intake Total 1958 15.2 Output Total 1200 Balance 758 15.2 - Medications Medications: Current Medications Acetaminophen (Tylenol 325mg Tab) 650 mg PO Q6H PRN PRN Reason: Headache Last Admin: 07/14/16 02:07 Dose: 650 mg Alprazolam (Xanax) 0.5 mg PO BID [facility] PRN Reason: Protocol Last Admin: 07/12/16 18:08 Dose: Not Given Aspirin (Ecotrin) 81 mg PO DAILY [facility] Last Admin: 07/13/16 09:20 Dose: Not Given Cholecalciferol (Vitamin D) 2,000 iu PO DAILY [facility] Last Admin: 07/13/16 09:24 Dose: Not Given Clopidogrel Bisulfate (Plavix) 75 mg PO DAILY [facility] Last Admin: 07/13/16 16:47 Dose: Not Given Clotrimazole (Lotrimin 1%) 0 gm TOP BID [facility] Last Admin: 07/13/16 18:00 Dose: 1 inch Ergocalciferol (Drisdol 50,000 Intl Units Cap) 1 cap PO Q7D [facility] Last Admin: 07/13/16 09:20 Dose: Not Given Gabapentin (Neurontin) 600 mg PO TID [facility] PRN Reason: Protocol Last Admin: 07/13/16 18:00 Dose: Not Given Meropenem 1g/NS 100mL IVPB (Meropenem 1g/Ns 100ml Ivpb) 1 gm in 100 mls @ 100 mls/hr IVPB Q12 [facility] PRN Reason: Protocol Stop: 07/19/16 19:59 Last Admin: 07/13/16 22:12 Dose: 100 mls/hr Potassium Chloride/Dextrose/Sod Cl (Potassium Chl 20 Meq In D5-1/2ns) 1,000 mls @ 150 mls/hr IV .Q6H40M [facility] Last Admin: 07/14/16 02:46 Dose: Not Given Heparin Sodium/Sodium Chloride (Heparin 87071 Units/250ml 1/2 Normal Saline) 25 ,000 units in 250 mls @ 13.172 mls/hr IV .[id number] [facility]; 12 UNITS/KG/HR PRN Reason: Protocol Last Titration: 07/13/16 21:40 Dose: 13.75 units/kg/hr, 15.1 mls/hr Insulin Detemir (Levemir) 24 unit SC HS [facility] Last Admin: 07/13/16 22:12 Dose: Not Given Insulin Human Lispro (Humalog Low) 0 units SC ACHS [facility] PRN Reason: Protocol Last Admin: 07/13/16 23:48 Dose: Not Given Insulin Human Lispro (Humalog) 10 units SC AC [facility] Last Admin: 07/13/16 16:35 Dose: Not Given Labetalol HCl (Trandate) 10 mg IV Q6 PRN PRN Reason: Heart rate Last Admin: 07/13/16 22:52 Dose: 10 mg Labetalol HCl (Trandate) 10 mg IV TID [facility] Last Admin: 07/13/16 18:00 Dose: Not Given Lactic Acid (Lac-Hydrin 12% Cream (140 G)) 0 ea TOP DAILY [facility] Levothyroxine Sodium (Synthroid) 175 mcg PO DAILY [facility] Last Admin: 07/13/16 16:31 Dose: Not Given Metoclopramide HCl (Reglan) 10 mg IVP Q6H [facility] Last Admin: 07/14/16 02:50 Dose: 10 mg Ondansetron HCl (Zofran Inj) 4 mg IVP Q4H PRN PRN Reason: Nausea/Vomiting Last Admin: 07/14/16 03:15 Dose: 4 mg Prednisolone Acetate (Pred Forte 1% Opht Susp) 0 ml OS QID [facility] Last Admin: 07/13/16 22:00 Dose: 1 drop Sertraline HCl (Zoloft) 50 mg PO DAILY [facility] Last Admin: 07/12/16 16:45 Dose: Not Given Tamsulosin HCl (Flomax) 0.4 mg PO DAILY [facility] Last Admin: 07/13/16 09:20 Dose: Not Given Trazodone HCl (Desyrel) 50 mg PO DAILY [facility] - Labs Labs: 07/13/16 10:40 07/14/16 04:15 PT 11.9 Seconds (9.9-11.8) H 07/13/16 10:50 INR 1.10 (0.93-1.08) H 07/13/16 10:50 APTT 36.7 Seconds (23.7-30.8) H 07/13/16 19:30 - Constitutional Appears: Well, No Acute Distress - Head Exam Head Exam: ATRAUMATIC, NORMAL INSPECTION, NORMOCEPHALIC Additional comments: Obese person. - Eye Exam Eye Exam: Normal appearance - ENT Exam ENT Exam: Normal External Ear Exam - Neck Exam Neck Exam: Normal Inspection - Respiratory Exam Respiratory Exam: NORMAL BREATHING PATTERN - Cardiovascular Exam Cardiovascular Exam: absent: JVD - GI/Abdominal Exam GI & Abdominal Exam: absent: Distended - Rectal Exam Rectal Exam: Deferred - Extremities Exam Extremities Exam: Normal Inspection - Back Exam Back Exam: NORMAL INSPECTION - Neurological Exam Neurological Exam: Alert, Oriented x3 - Psychiatric Exam Psychiatric exam: Normal Affect, Normal Mood - Skin Skin Exam: Normal Color Assessment and Plan - Assessment and Plan (Free Text) Assessment: A/P:Elevated blood pressure reading. HTN. Obesity. Hx CVA/MT. Anxiety . DM II. Hydralazine 10 mg IV x 1. Ativan 0.5mg IV x 1.
[2016-07-14 04:59] LABS: HEMATOCRIT 29.7 % (42.0-52.0); MEAN CELL VOLUME 88.7 fL (80.0-105.0); MEAN CORPUSCULAR HGB CONC 32.7 g/dl (31.0-37.0); PLATELET COUNT 379 10^3/uL (120.0-450.0); RED CELL DISTRIBUTION WIDTH 14.2 % (11.5-14.5); WHITE BLOOD COUNT 14.5 10^3/ul (4.5-11.0)
[2016-07-14 05:00] LABS: BASO # 0.09 K/mm3 (0.0-2.0); BASO % 0.6 % (0.0-3.0); EOS # 0.4 (0.0-0.7); EOS % 2.7 % (1.5-5.0); GRAN % 62.8 % (50.0-68.0); LYMPH # 3.5 (1.2-3.4); MEAN PLATELET VOLUME 10.7 fl (7.0-11.0); MONO # 1.4 (0.1-0.6); MONO % 9.9 % (1.0-6.0)
[2016-07-14] MEDS: Insulin Lispro 1 UNITS/0.01 ML SC SCH ×3 (07:30→18:42)
[2016-07-14] MEDS: Insulin Lispro (humaLOG) LOW Coverage SC SCH ×4 (07:30→22:24)
--- NOTE | 2016-07-14 08:57 | PN ---
DATE: 07/14/2016 The patient is in bed, in no acute distress, nontoxic. PHYSICAL EXAMINATION: VITAL SIGNS: Temperature is 97, blood pressure is 160/80, respiratory rate of 20, heart rate of 96. HEENT: Unremarkable. NECK: Supple. LUNGS: Have decreased breath sounds. HEART: Normal S1, S2. ABDOMEN: Soft, nontender. LABORATORY DATA: Reveals a white count of 14,500, hemoglobin of 9, platelets of 379. Chemistries re veal the BUN of 45, creatinine of 2.8 and procalcitonin is 9.79. Troponins elevated at 0.16. Microb iology reveals the blood cultures are negative, urine culture is E. coli. ASSESSMENT AND PLAN: This is a 35-year-old male with multiple cerebrovascular accidents, paralysis, diabetes, hypertension, anxiety, coronary artery disease, seen earlier today, myocardial infarction, history of macular degeneration, urinary incontinence, alcohol abuse, who is ALLERGIC TO SULFA. On t his admission, the patient is admitted with sepsis with urine as the source, with Escherichia coli in the urine as the source, and the Escherichia coli is reported to be pansensitive. The blood culture s are reported to be negative so far. The patient with severe sepsis, Escherichia coli, urine as the source, in a patient who self-catheterizes, with acute kidney injury and elevated procalcitonin. Wi ll follow closely with you. Improving white count. Perry Bird MD cc: [phone] TT: 07/14/2016 08:56:22 Confirmation # [id number] Dictation # [id number] mn
[2016-07-14] MEDS: Labetalol 5 mg/ml Inj 20ML IV PRN (09:00)
[2016-07-14] MEDS: PrednisoLONE 1% Opht Susp(5 ml) OS SCH ×4 (10:00→22:29)
[2016-07-14] MEDS: Meropenem 1g/NS 100mL IVPB 1 GM/100 ML PIGGYBACK IVPB SCH ×2 (10:00→22:26)
[2016-07-14] MEDS: Levothyroxine 175 MCG TAB PO SCH (10:00)
--- NOTE | 2016-07-14 10:03 | US ---
PROCEDURE: Ultrasound of the Kidneys HISTORY: [place] COMPARISON: CT abdomen and pelvis from 06/09/2015. TECHNIQUE: Sonogram of the kidneys. FINDINGS: RIGHT KIDNEY: Measures: 8.2 cm. Small in size and there is diffuse increased echogenicity. No stone, solid mass lesion or hydronephrosis visualized. LEFT KIDNEY: Measures: 12.9 cm. Normal in size, contour and echogenicity. No stone, solid mass lesion or hydronephrosis visualized. OTHER FINDINGS: None. IMPRESSION: Small echogenic right kidney in keeping with medical renal disease. Normal left kidney.
--- NOTE | 2016-07-14 10:14 | US ---
PROCEDURE: Ultrasound of the urinary bladder HISTORY: [place], chronic lópez, please eval for urine retention COMPARISON: CT abdomen and pelvis from 06/09/2015 TECHNIQUE: Limited ultrasound of the pelvis was performed. FINDINGS: There is an indwelling López catheter with subsequent decompression of the urinary bladder. There is no free fluid in the pelvis. IMPRESSION: Indwelling López catheter with subsequent decompression of the urinary bladder.
[2016-07-14] MEDS: Ammonium Lactate 12% Cream (140 g) TOP SCH (10:29)
[2016-07-14] MEDS: Clotrimazole 1% Cream(30 gm) TOP SCH ×2 (10:35→20:31)
--- NOTE | 2016-07-14 11:12 | PN ---
DATE: 07/14/2016 The patient is resting comfortably. PHYSICAL EXAMINATION: VITAL SIGNS: Blood pressure 165/91. The heart rate is in the 80s. NECK: Negative JVD. LUNGS: Without rales. HEART: Reveals S1, S2. EXTREMITIES: Without edema. LABORATORIES: BUN and creatinine is 45/2.8. The glucose is 147. Hemoglobin is 9.7. Echocardiogram reveals good LV function with LVH noted. IMPRESSION: 1. Status post diabetic ketoacidosis. 2. Diabetes mellitus. 3. Hypertension. 4. Recent inferior wall myocardial infarction. 5. Coronary artery disease. 6. Renal insufficiency. PLAN: Given these findings, we will be treating the patient medically for his acute coronary syndrom e due to his renal failure. We will add clonidine for blood pressure control. Andriy Chandler MD cc: [phone] TT: 07/14/2016 11:10:57 Confirmation # [id number] Dictation # [id number] marek
--- NOTE | 2016-07-14 11:50 | PN ---
DATE: 07/14/2016 In CCU 129, room 1. This is a 35-year-old male with recent uncontrolled type 1 insulin-dependent diabetes, now being foll owed closely for metabolic management. He presented with diabetic ketoacidosis and dehydration and h as since then improved clinically and metabolically as noted thereof. His oral intake remains quite variable at this time. The latest glycemic levels have improved and the values today have ranged from 110-147 mg/dL. The la test chemistries include a BUN of 45, sodium 142, potassium 3.4, chloride 112, CO2 22, glucose 93 and creatinine 2.8. So at this time, we will continue the same basal and bolus insulin regimen as given with Humalog give n as 10 units t.i.d. before meals as ordered. We will continue the low-dose correction scale using H umalog insulin as ordered. We will also continue the basal insulin given as Levemir at 24 units subQ at bedtime daily as given. We will obtain serial chemistries and supplement accordingly as needed a nd continue the IV hydration for now to allow for full replenishment of the lost fluids and electroly sebastián accordingly. Lexus Valdovinos MD cc: [phone] TT: 07/14/2016 11:50:10 Confirmation # [id number] Dictation # [id number]
[2016-07-14] MEDS ORDERED: Potassium Chloride 20 mEq ER Tab PO ONE (12:35)
--- NOTE | 2016-07-14 12:36 | CP.PCM.PN ---
Subjective - Date & Time of Evaluation Date of Evaluation: 07/14/16 Time of Evaluation: 12:31 - Subjective Subjective: Follow up nephrology note Assessment: Acute Kidney Injury likely due to Hyperglycemia and dehydration: resolving Chronic Kidney Disease Stage 4 with 10 gm proteinuria likely due to diabetic nephropathy, atrophic Rt Kidney, hx of recurrent AKIs uncontrolled severe Hypertension severe HAGMA with metabolic alkalosis with respi compensation [due to diabetic ketoacidosis]: IMPROVED Hyperkalemia (due to combination of CKD, hyperglycemia/DKA and acidosis): RESOLVED chronic Anemia, , hx of CVA, CAD, chronic indwelling lópez Plan No acute need for renal replacement therapy at this time. Hypertension control: started on clonidine by cardiology. Increased PO labetalol to 400 mg bid. also on PRN IV Labetalol 10 mg q 6 hr. Patient at home on ACEI as lisinopril and lasix: hold both for now. Monitor I/O, daily weights and renal function. Check spot protein/creatinine and albumin/creatinine ratio. will check renal artery doppler when possible to r/o MAIKEL considering his Rt renal atrophy and severe HTN. d/c IVF once orally accepting. Keep serum K close to 4.0 meq/L. will give additional oral KDUR 20 meq today Dose meds/antibiotics for reduced GFR 20-25. Avoid fleets enema/magnesium based laxatives. Avoid nephrotoxins/NSAIDs/ iodinated contrast (unless needed emergently) Glycemic control, renal diet Further work up for as per primary team. Thanks for allowing me to participate in care of your patient. Will follow patient with you. Please call if any Qs Dr Artis Mendoza Office: [phone] Subjective: no new complaints at this time. Denies chest pain, palpitations. denies SOB and c/o nausea no vomiting. noted events overnight. he had picc line left arm. also started on heparin drip for concern of PE Exam: pt comfortable, no acute distress. lying in bed. Vitals reviewed and noted as below Lungs: clear to auscultation, b/l air entry + and equal, no use of accessory muscles CVS: s1s2 normal. no rub/gallop. Abdomen: soft non tender obese no organomegaly Ext 1-2+ edema Neuro: AO x 3 , chronic leg weakness. he is chronically bed bound. Labs/imaging/EKG reviewed. Past medical history, past surgical history, family history, social history, allergy reviewed and noted as below renal sono: Rt kidney atrophic 8 cm and left kidney unremarkable GN work up as C3, C4, DINA, Anti dsDNA, ANCA, Hep B and Hep C serology has been neg in past UA 3+ protein with small to moderate blood (has chronic lópez) and 10 gram proteinuria on spot pro/cr ratio uric acid 8.6 and CK 80 Objective - Vital Signs/Intake and Output Vital Signs (last 24 hours): Temp Pulse Resp BP Pulse Ox 98.5 F 84 19 194/104 H 98 07/14/16 08:00 07/14/16 11:10 07/14/16 11:10 07/14/16 11:01 07/14/16 11:10 Intake and Output: 07/14/16 07/14/16 06:59 18:59 Intake Total 1965.2 Output Total 1000 Balance 965.2 - Medications Medications: Current Medications Acetaminophen (Tylenol 325mg Tab) 650 mg PO Q6H PRN PRN Reason: Headache Last Admin: 07/14/16 02:07 Dose: 650 mg Aspirin (Ecotrin) 81 mg PO DAILY [facility] Last Admin: 07/14/16 10:20 Dose: Not Given Cholecalciferol (Vitamin D) 2,000 iu PO DAILY [facility] Last Admin: 07/13/16 09:24 Dose: Not Given Clonidine HCl (Catapres) 0.1 mg PO BID [facility] Clopidogrel Bisulfate (Plavix) 75 mg PO DAILY [facility] Last Admin: 07/14/16 10:36 Dose: Not Given Clotrimazole (Lotrimin 1%) 0 gm TOP BID [facility] Last Admin: 07/14/16 10:35 Dose: 1 inch Ergocalciferol (Drisdol 50,000 Intl Units Cap) 1 cap PO Q7D [facility] Last Admin: 07/13/16 09:20 Dose: Not Given Gabapentin (Neurontin) 600 mg PO TID [facility] PRN Reason: Protocol Last Admin: 07/14/16 10:35 Dose: Not Given Meropenem 1g/NS 100mL IVPB (Meropenem 1g/Ns 100ml Ivpb) 1 gm in 100 mls @ 100 mls/hr IVPB Q12 [facility] PRN Reason: Protocol Stop: 07/19/16 19:59 Last Admin: 07/13/16 22:12 Dose: 100 mls/hr Potassium Chloride/Dextrose/Sod Cl (Potassium Chl 20 Meq In D5-1/2ns) 1,000 mls @ 150 mls/hr IV .Q6H40M [facility] Last Admin: 07/14/16 05:38 Dose: 150 mls/hr Heparin Sodium/Sodium Chloride (Heparin 35217 Units/250ml 1/2 Normal Saline) 25 ,000 units in 250 mls @ 13.172 mls/hr IV .[id number] [facility]; 12 UNITS/KG/HR PRN Reason: Protocol Last Titration: 07/13/16 21:40 Dose: 13.75 units/kg/hr, 15.1 mls/hr Insulin Detemir (Levemir) 24 unit SC HS [facility] Last Admin: 07/13/16 22:12 Dose: Not Given Insulin Human Lispro (Humalog Low) 0 units SC ACHS [facility] PRN Reason: Protocol Last Admin: 07/14/16 07:30 Dose: Not Given Insulin Human Lispro (Humalog) 10 units SC AC [facility] Last Admin: 07/14/16 07:30 Dose: Not Given Labetalol HCl (Trandate) 10 mg IV Q6 PRN PRN Reason: Heart rate Last Admin: 07/14/16 09:00 Dose: 10 mg Labetalol HCl (Trandate) 400 mg PO BID [facility] Lactic Acid (Lac-Hydrin 12% Cream (140 G)) 0 ea TOP DAILY [facility] Last Admin: 07/14/16 10:29 Dose: 1 mg Levothyroxine Sodium (Synthroid) 175 mcg PO DAILY [facility] Last Admin: 07/13/16 16:31 Dose: Not Given Lorazepam (Ativan) 0.5 mg IV Q4H PRN PRN Reason: Anxiety Metoclopramide HCl (Reglan) 10 mg IVP Q6H [facility] Last Admin: 07/14/16 02:50 Dose: 10 mg Ondansetron HCl (Zofran Inj) 4 mg IVP Q4H PRN PRN Reason: Nausea/Vomiting Last Admin: 07/14/16 03:15 Dose: 4 mg Prednisolone Acetate (Pred Forte 1% Opht Susp) 0 ml OS QID [facility] Last Admin: 07/13/16 22:00 Dose: 1 drop Sertraline HCl (Zoloft) 50 mg PO DAILY [facility] Last Admin: 07/12/16 16:45 Dose: Not Given Tamsulosin HCl (Flomax) 0.4 mg PO DAILY [facility] Last Admin: 07/14/16 10:21 Dose: Not Given Trazodone HCl (Desyrel) 50 mg PO DAILY [facility] - Labs Labs: 07/14/16 04:15 07/14/16 04:15 PT 11.9 Seconds (9.9-11.8) H 07/13/16 10:50 INR 1.10 (0.93-1.08) H 07/13/16 10:50 APTT 70.0 Seconds (23.7-30.8) H 07/14/16 04:15
--- NOTE | 2016-07-14 12:39 | CON ---
DATE: 07/14/2016 The patient is a 35-year-old male. I reviewed the chart, spoke to the nursing staff at length, spoke to resident physician. The patient is currently being treated in the critical care unit for acute diabetic ketoacidosis and sepsis with a source of urinary infection, acute renal failure and other medical issues. The patient, in recent days, has been very drowsy, groggy, arousable, but unable to have a conversation. Today, however, patient is awake generally and able to carry on a conversation. The patient states he apparently had 1 or more strokes approximately several years ago, left him with bilateral lower extremity paresis. He is unable to walk. He spends most of his time in bed or in a wheelchair. The patient has also been treated with multiple psychotropic medicines by his family physician for anxiety and apparent depression, although patient states he has not been depressed. OTHER PAST MEDICAL HISTORY: Includes a history of type 1 insulin-dependent diabetes mellitus since childhood at the age of 10, he has hypertensive cardiovascular disease, dyslipidemia, polyneuropathy, nephropathy, coronary artery disease with previous myocardial infarctions. The patient has a history of congestive heart failure, deep vein thrombosis, generalized sarcoidosis. The patient has a history of chronic obstructive pulmonary disease. The patient apparently had a history of cerebrovascular disease with multiple strokes occurring over the past 10 years, the last one was in 2013. The patient has a neurogenic bladder, recurrent UTIs and is legally blind. The patient also has chronic constipation with prior colitis and diverticulitis. FAMILY HISTORY: He lives with a sister and a [id number]. He has 1 other sister. The patient's parents are alive and well. They are . Mother lives in [facility]. The patient also has a history of alcohol abuse and drinks several cans of beer a day. The patient has a supportive family, who are attentive to his care. He lives with, as noted, his sister and [id number]. He is able to self- administer insulin. The patient has been treating himself up until recently. CURRENT LABORATORY DATA: His white count now is 14,500. It has been as high as 20,900 on admission. His hemoglobin is 9.7, his platelet count is 379,000. His metabolic profile on admission: His sodium was 141, potassium 4.8, chloride 102, CO2 12, anion gap 32, BUN 59, creatinine was 3.0, estimated GFR was 24. On admission, he also had a random glucose of 585. He also had a troponin 1 level of 0.13. The rest of his parameters were within normal range. His troponin level yesterday was 0.40. His CT scan of the head shows mild atrophy, no mass effect or edema, ventricles unremarkable. CURRENT MEDICATIONS: He is n.p.o. He had had Catapres ordered 0.1 mg b.i.d. He was on trazodone, which is being held, was on 50 mg daily. Drisdol 1 cap q. 7 days, Ecotrin 81 mg, Flomax, is on heparin, Humulin lispro, Humalog insulin. He is on lactic acid. He is receiving Levemir, meropenem IV. He was ordered Neurontin 600 mg t.i.d., but that is on hold, Plavix 75 mg daily. He is also receiving Reglan 10 mg IV push q. 6 hours, Synthroid which is not being given, vitamin D which is not being given, Zoloft has not been given recently, Neurontin as noted is on hold. He was also taking Xanax 0.5 mg b.i.d. He has not had that. He is getting IV Trandate. The patient is receiving potassium supplementation. Last night, he received, according to nurse, lorazepam at bedtime for restlessness. His dose was 0.5 mg. Actually, he had that at 5:45 this morning. REVIEW OF SYSTEMS: He has trouble with his vision. It is blurry without his glasses. Sees somewhat better with his glasses. Complains of lower back pain. He is of course unable to walk. Other 12-point noncontributory. PHYSICAL EXAMINATION: VITAL SIGNS: Blood pressure 165/91, his pulse rate is 80, his O2 saturation is 98%. PSYCHIATRIC: Mental status: He is awake. His speech is fluent, soft. His thought processes are slow, but reasonably well integrated. He is oriented x 3. He is aware of his medical problems. His recent memory appears improving, intact. Of course, he does not remember all events in the past couple of days due to sedation and illness. Denies hallucinations, depression, suicidal ideation. His judgment is fairly satisfactory. Little difficulty sleeping last night, better after i.v. Ativan. Claims at home takes Ambien 10 mgm. IMPRESSION: 1. The patient has resolving delirium. 2. He has resolving diabetic ketoacidosis. 3. He has sepsis with urinary tract infection. 4. He has a history probably of depression, generalized anxiety, hypothyroidism. 5. He has had several strokes in the past 10 years with cerebrovascular disease. 6. The patient has a history of acute kidney failure, possibly chronic renal failure. 7. The patient has history of myocardial infarctions. 8. He has had a recent anterior wall myocardial infarction, coronary artery disease, history of hypertension. PLAN: For right now, I would leave an order for lorazepam 0.5 mg IV q. 4 hours p.r.n. for restlessness or insomnia. I will reevaluate patient in terms of his other psychotropic medications. Apparently, he is benzodiazepine dependent and once he is p.o., I would put patient on lorazepam 0.25 mg b.i.d. and at bedtime and also leave an order for p.r.n. Ambien as he has been dependent in the past on Ambien for insomnia. Emerson Thakkar MD cc: [id number] TT: 07/14/2016 12:38:40 Confirmation # [id number] Dictation # [id number] en MTDD
--- NOTE | 2016-07-14 13:05 | PN ---
DATE: 07/14/2016 SUBJECTIVE: The patient is seen in ICU bed 1. The patient is lying in the bed. The patient is watching TV. The patient's states that vital signs yesterday. The patient is alert, awake, responsive. OBJECTIVE: VITAL SIGNS: The patient is afebrile. Telemetry shows sinus rhythm, heart rate 87-89, O2 sat is 95-98%, respirations 20, blood pressure noted on the telemetry 184/104. Apparently the patient has using p.o. labetalol, which was discontinued by the biomedical engineering supervisor. Patient was put on p.r.n. labetalol and IV labetalol. Patient had intermittently elevated blood pressure. HEAD: Normocephalic, atraumatic. HEENT: Shows pinkish conjunctivae. Anicteric sclerae. No oropharyngeal lesion. NECK: No neck rigidity. CHEST: Symmetrical. LUNGS: Shows occasional upper lung field rhonchi, no rales, crackles, or wheezing. CARDIOVASCULAR: S1, S2, tachycardic rhythm. ABDOMEN: Obese, positive bowel sounds. GENITALIA: Male. Positive for Lira catheter. EXTREMITIES: Shows trace swelling of the lower extremity, no pitting edema, no complication with Akiko's sign. MUSUCOLSKELETAL: Shows an elevated body mass index, NEUROLOGIC: The patient is alert, awake, responsive. Cranial nerves II-XII limited. Gait examination could not be tested as the patient is lying in the bed. DIAGNOSTICS: Patient's CBC, chemistry, other diagnostics reviewed. From 2016, the patient's potassium was found to be low at 3.4. Renal function was still at normal. Fingerstick blood sugar was noted. IMPRESSION AND PLAN: 1. Status post diabetic ketoacidosis and uncontrolled type 1 insulin-requiring diabetes mellitus with hyperglycemia. 2. Status post non-hemolyzed hyperkalemia. 3. Acute kidney injury with underlying chronic kidney disease stage IV with massive proteinuria. 4. Uncontrolled hypertension. 5. Questionable poor compliance with p.o. medications. 6. Sinus tachycardia. 7. Hypokalemia. 8. Questionable and possible non-ST elevation myocardial infarction with elevated troponin. 9. History of myocardial infarction and angioplasty and stent placement. 9. History of cerebral infarct. 10. Increased anion gap and high anion gap metabolic acidosis. 11. Lactic acidosis. 12. Leukocytosis with . 13. Normocytic anemia. 14. Uncontrolled insulin-requiring diabetes mellitus with elevated hemoglobin A1c. 1. Diabetic ketoacidosis with increased anion gap metabolic acidosis and high anion gap metabolic acidosis. 2. Type 1 insulin-dependent diabetes mellitus. 3. Uncontrolled decompensated type 1 insulin-dependent diabetes mellitus with hemoglobin A1c of greater than 8. 4. Diabetic microvascular complication with diabetic retinopathy, diabetic nephropathy, diabetic polyneuropathy and vasculopathy, history of diabetic macrovascular complication of coronary artery disease, peripheral vascular disease and vasculopathy, history of cerebrovascular accident, history of diabetic autonomic neuropathy and neurogenic bladder. 5. Hypertension. 6. Tachycardia. 7. Tachypnea. 8. Morbid obesity with elevated body mass index of 39. 9. Sepsis with hyperprocalcitonemia and lactic acidosis and increased anion gap and high anion gap metabolic acidosis. 10. Leukocytosis with granulocytosis. 11. Normocytic anemia. 12. Severe metabolic acidosis with lactic acidosis. 13. Status post nonhemolyzed hyperkalemia. 14. Acute kidney injury and acute renal failure. 15. Uncontrolled type 1 insulin-requiring diabetes mellitus with diabetic ketoacidosis and hyperglycemia and hemoglobin A1c of 8.2. 16. Hyperuricemia. 17. Questionable non-ST elevation myocardial infarction with elevated troponin. 18. Hypovitaminosis D. 19. Hyperprocalcitonemia. 20. Homocysteinemia. 21. History of thyroidism. 22. Lactic acidosis. 23. Status post hyperkalemia. 24. Hypokalemia at present. 25. Proteinuria, glycosuria, microscopic hematuria, pyuria, funguria. 26. Sinus tachycardia. 27. Severe dehydration. 28. Cerebral cortical atrophy of the brain. 29. Possible diabetic gastroparesis with nausea. 30. Sepsis with hyperprocalcitonemia and lactic acidosis. 31. History of myocardial infarction, history of type 1 diabetes mellitus, history of cerebrovascular accident, history of deep venous thrombosis, history of chronic constipation, history of diabetic micro and macrovascular complications. 32. History of insomnia, depression, anxiety. 33. Chronic kidney disease stage IV. 34. Hypertension. 35. Obesity. 1. Acute diabetic ketoacidosis with uncontrolled diabetes and hyperglycemia. 2. Non-hemolyzed hyperkalemia. 3. Increased anion gap metabolic acidosis. 4. Acute renal failure. 5. Uncontrolled diabetes mellitus with diabetic ketoacidosis, nonhemolyzed hyperkalemia and severe hyperglycemia. 6. Questionable sepsis with leukocytosis and granulocytosis. 7. Normocytic anemia. 8. Thrombocytosis. 9. Sinus tachycardia. 10. History of obesity, history of ____ diabetes mellitus, history of insomnia , history of depression, history of hypertension, history of diabetic neuropathy , history of anxiety disorder, history of neurogenic bladder, history of hypothyroidism, history of chronic back pain syndrome, history of depression, history of cerebrovascular accident, history of hypovitaminosis D, history of hypertension, history of obesity, history of gait dysfunction, history of questionable paraplegia. PLAN: At this time, the patient's medications are to be continued as per the MRA of today. The patient has been ordered potassium riders. The patient has been ordered to be out of bed. The patient has been ordered transfer out of ICU. The patient's management discussed at length. Patient was updated about his diagnosis, test results, and explained all above in layman's language, with all questions and concerns answered to the patient's satisfaction. Time spent is more than 35 minutes. Dictated and electronically singed, not read. Mikey Zhang MD cc: [id number] TT: 07/14/2016 13:04:12 Confirmation # [id number] Dictation # [id number] jn MTDD
[2016-07-14 14:23] LABS: CALCIUM 8.3 mg/dL (8.4-10.5)
--- NOTE | 2016-07-14 17:04 | CARD ---
APPROVED REPORT EKG Measurement Heart [id number] CO [id number] <Conclusion> Normal sinus rhythm Nonspecific T wave abnormality Abnormal ECG
--- NOTE | 2016-07-14 18:51 | US ---
PROCEDURE: Bilateral renal artery duplex ultrasound. CLINICAL HISTORY: Renal artery stenosis. Uncontrolled hypertension. Evaluate for renovascular hypertension. PHYSICIAN(S): Andriy Gomez M.D. TECHNIQUE: Duplex sonography with color-flow Doppler was used to evaluate the visualized segments of the main renal arteries. The patient was evaluated in a fasting state. Imaging in a supine and decubitus position was performed. Limited evaluation of the arcuate waveforms and resistive indices were performed. FINDINGS: The exam is limited by body habitus. Limiting evaluation of the renal arteries. The right kidney is atrophic compared to the left. Right kidney measures 8.1 cm in length. The left kidney measures 12.2 cm in length. No hydronephrosis is appreciated. The main right renal artery is only visualized in segments from the aorta to the hilum.. The peak systolic velocity in the right main renal artery is 52 cm/sec. This is consistent with a 0 to 49% stenosis in the main right renal artery. The arcuate waveforms are normal. The resistive index is normal. The main left renal artery is also only visualized in segments from the aorta to the hilum.. The peak systolic velocity in the main left renal artery is 98cm/sec. This corresponds to a 0 to 49% stenosis in the main left renal artery. The arcuate waveforms and resistive indices are normal. IMPRESSION: 1. The main renal artery is only visualized in segments. 2. The right kidney is atrophic compared to the left. 2. No sonographically significant stenosis is identified. 3. If clinically indicated, additional imaging of the renal arteries can be obtained with CTA, MRA, or conventional arteriography
--- NOTE | 2016-07-14 18:52 | US ---
PROCEDURE: Right upper extremity venous US CLINICAL HISTORY: Arm pain and swelling Evaluate for deep venous thrombosis. PHYSICIAN(S): Andriy Gomez M.D FINDINGS: The visualized rightinternal jugular vein is sonographically normal and compressible. No evidence of obstruction or thrombus is seen. The visualized segments of the right subclavian vein are patent with normal waveforms. No sonographic evidence of obstruction or thrombosis is seen. The visualized deep venous system of the proximal right upper extremity is sonographically normal and compressible. IMPRESSION: 1. No sonographic evidence for deep venous thrombosis in the visualized segments of the right upper extremity.
[2016-07-14] MEDS: Insulin Detemir 100 units/ml Vial (Levemir) SC SCH (22:27)
[2016-07-15] MEDS: Potassium Ch 20mEq in D5-1/2NS 1,000 ML IV SCH (03:35)
[2016-07-15 07:44] LABS: ADD MANUAL DIFF? NO
[2016-07-15] MEDS: Insulin Lispro (humaLOG) LOW Coverage SC SCH ×4 (08:01→21:23)
[2016-07-15] MEDS: Insulin Lispro 1 UNITS/0.01 ML SC SCH ×3 (08:07→16:30)
[2016-07-15 08:12] LABS: BILIRUBIN,DIRECT 0.4 mg/dL (0.0-0.4); BILIRUBIN,TOTAL 0.5 mg/dL (0.2-1.3); CALCIUM 8.1 mg/dL (8.4-10.5); MAGNESIUM 1.8 mg/dL (1.7-2.2); PHOSPHOROUS 3.1 mg/dL (2.5-4.5); POTASSIUM 4.2 mmol/L (3.6-5.0); TOTAL PROTEIN 5.5 g/dL (5.8-8.3)
[2016-07-15 08:30] LABS: BASO # 0.05 K/mm3 (0.0-2.0); BASO % 0.6 % (0.0-3.0); EOS # 0.5 (0.0-0.7); EOS % 5.6 % (1.5-5.0); GRAN # 5.15 (1.4-6.5); GRAN % 58.3 % (50.0-68.0); HEMATOCRIT 26.7 % (42.0-52.0); LYMPH # 2.5 (1.2-3.4); LYMPH % 28.2 % (22.0-35.0); MEAN CELL VOLUME 87.5 fL (80.0-105.0); MEAN CORPUSCULAR HEMOGLOBIN 29.2 pg (25.0-35.0); MEAN CORPUSCULAR HGB CONC 33.3 g/dl (31.0-37.0); MEAN PLATELET VOLUME 10.3 fl (7.0-11.0); MONO # 0.6 (0.1-0.6); MONO % 7.3 % (1.0-6.0); PLATELET COUNT 307 10^3/uL (120.0-450.0); RED CELL DISTRIBUTION WIDTH 14.3 % (11.5-14.5); WHITE BLOOD COUNT 8.8 10^3/ul (4.5-11.0)
--- NOTE | 2016-07-15 09:27 | PN ---
DATE: 07/15/2016 The patient is in bed in no acute distress, nontoxic. PHYSICAL EXAMINATION: VITAL SIGNS: Temperature is 97, blood pressure is 170/80, respiratory rate of 16. HEENT: Unremarkable. NECK: Supple. LUNGS: Have decreased breath sounds. HEART: Normal S1, S2. ABDOMEN: Soft, nontender. LABORATORY DATA: Reveals a white count of 8.8, hemoglobin of 8, platelets of 307. The chemistries r eveal a BUN of 29, creatinine of 2.1. Urinalysis is noted. Microbiology reveals E. coli in the urin e, it is sensitive. Blood cultures are negative. Review of the orders reveals the patient to be on meropenem. ASSESSMENT AND PLAN: This is a 35-year-old male with morbid obesity, body mass index over 40 and mul tiple cerebrovascular accidents, paralysis, diabetes, hypertension, anxiety, coronary artery disease, myocardial infarction, history of macular degeneration, urinary incontinence, alcohol abuse, who is ALLERGIC TO SULFA. On this admission, the patient was admitted with sepsis with Escherichia coli in the urine as the source and blood cultures are negative with severe sepsis actually with Escherichia coli in patient who self-catheterizes doing well, acute kidney injury, elevated procalcitonin, now wh ite count is normal. We will discontinue the intravenous antibiotics and switch to p.o. White count is down to 8.8. If the patient is afebrile, will switch to p.o. Vantin at 100 mg p.o. b.i.d. due to renal insufficiency, which appears to be somewhat improving. Perry Bird MD cc: [id number] TT: 07/15/2016 09:27:02 Confirmation # [id number] Dictation # [id number] alon
--- NOTE | 2016-07-15 10:39 | CON ---
DATE: 07/15/2016 The patient is a 35-year-old white male who Dr. Thakkar was following on the critical care unit as he had been drowsy, ____ unable to have a conversation. Dr. Thakkar found the patient to be awake and ab le to carry on a conversation, was generally coherent with relevant responses. No hallucinations and no acute delusions were elicited. Dr. Thakkar's note also indicated that patient has been on multipl e psychotropic medications for anxiety and depression. The patient denies any depression when Dr. Bryson lozada met with him at bedside. I met with patient at bedside and patient continues to show an improvement in his sensorium and respo nsiveness. He is alert and oriented x 3 and speech is fluent, patient's focus and concentration is g ood. Thought process is coherent and responses are relevant to questioning. He reports that he is f eeling better. He continues to deny having any depression and reports his anxiety is, "alright". Hi s only psychiatric complaint is regarding his sleep, indicates he was very restless on and off all ni ght. The patient indicates that he has good appetite and he is currently hungry at this time. Affec t is generally related and congruent to mood. He did not appear to be responding to internal stimuli . Insight and judgment appears to be fair at the time I am meeting with him. Vital signs were reviewed. The patient's blood pressures are notably higher in the last couple of da ys. MEDICATIONS: Also reviewed. The patient is taking Xanax 0.25 mg p.o. q. 6 p.r.n., Ativan 0.5 mg IV q. 4 hours p.r.n., Zoloft 50 mg daily as well as Ambien 10 mg p.o. at bedtime p.r.n. of which erika nt has not received any doses because he was n.p.o. IMPRESSION: The patient has resolving delirium, has shown improved orientation and is demonstrating improved behavior as well. The patient is currently p.o., I will put patient on Ativan 0.25 mg t.i.d . and also keep the order for p.r.n. Ambien for patient's insomnia, which he complained of today. I will discontinue Xanax as the patient is already on Ativan for anxiety. Psychiatry will continue to follow up with the patient every other day. Please call if there are any acute changes in his presen tation and we will be happy to follow up. Barak Bae MD cc: [id number] TT: 07/15/2016 10:38:33 Confirmation # [id number] Dictation # [id number] alon
[2016-07-15] MEDS: Ammonium Lactate 12% Cream (140 g) TOP SCH (10:55)
[2016-07-15] MEDS: Clotrimazole 1% Cream(30 gm) TOP SCH ×2 (10:56→18:07)
[2016-07-15] MEDS: PrednisoLONE 1% Opht Susp(5 ml) OS SCH ×4 (10:56→21:37)
[2016-07-15] MEDS: Levothyroxine 175 MCG TAB PO SCH (10:57)
[2016-07-15] MEDS: Cefpodoxime (Vantin) 100 mg Tab PO SCH ×2 (10:58→21:37)
--- NOTE | 2016-07-15 12:09 | CP.PCM.PN ---
Subjective - Date & Time of Evaluation Date of Evaluation: 07/15/16 Time of Evaluation: 12:01 - Subjective Subjective: seen and examined feels ok Objective - Vital Signs/Intake and Output Vital Signs (last 24 hours): Temp Pulse Resp BP Pulse Ox 97.9 F 75 18 156/82 H 98 07/15/16 00:00 07/15/16 10:59 07/15/16 00:00 07/15/16 10:59 07/14/16 11:10 Intake and Output: 07/15/16 07/15/16 06:59 18:59 Intake Total 2568 Output Total 1300 Balance 1268 - Medications Medications: Current Medications Acetaminophen (Tylenol 325mg Tab) 650 mg PO Q6H PRN PRN Reason: Headache Last Admin: 07/15/16 10:57 Dose: 650 mg Aspirin (Ecotrin) 81 mg PO DAILY [facility] Last Admin: 07/15/16 10:54 Dose: 81 mg Cefpodoxime Proxetil (Vantin) 100 mg PO Q12 [facility] PRN Reason: Protocol Stop: 07/22/16 10:01 Last Admin: 07/15/16 10:58 Dose: 100 mg Cholecalciferol (Vitamin D) 2,000 iu PO DAILY [facility] Last Admin: 07/15/16 10:58 Dose: 2,000 iu Clonidine HCl (Catapres) 0.1 mg PO BID [facility] Last Admin: 07/15/16 10:54 Dose: 0.1 mg Clopidogrel Bisulfate (Plavix) 75 mg PO DAILY [facility] Last Admin: 07/15/16 10:56 Dose: 75 mg Clotrimazole (Lotrimin 1%) 0 gm TOP BID [facility] Last Admin: 07/15/16 10:56 Dose: 1 inch Ergocalciferol (Drisdol 50,000 Intl Units Cap) 1 cap PO Q7D [facility] Last Admin: 07/13/16 09:20 Dose: Not Given Gabapentin (Neurontin) 600 mg PO TID [facility] PRN Reason: Protocol Last Admin: 07/15/16 10:56 Dose: 600 mg Potassium Chloride/Dextrose/Sod Cl (Potassium Chl 20 Meq In D5-1/2ns) 1,000 mls @ 150 mls/hr IV .Q6H40M [facility] Last Admin: 07/15/16 03:35 Dose: 150 mls/hr Heparin Sodium/Sodium Chloride (Heparin 71517 Units/250ml 1/2 Normal Saline) 25 ,000 units in 250 mls @ 13.172 mls/hr IV .[id number] [facility]; 12 UNITS/KG/HR PRN Reason: Protocol Last Titration: 07/14/16 15:43 Dose: 15.75 units/kg/hr, 17.289 mls/hr Insulin Detemir (Levemir) 24 unit SC HS [facility] Last Admin: 07/14/16 22:27 Dose: 24 unit Insulin Human Lispro (Humalog Low) 0 units SC ACHS [facility] PRN Reason: Protocol Last Admin: 07/15/16 08:01 Dose: Not Given Insulin Human Lispro (Humalog) 10 units SC AC [facility] Last Admin: 07/15/16 08:07 Dose: 10 units Labetalol HCl (Trandate) 10 mg IV Q6 PRN PRN Reason: Heart rate Last Admin: 07/14/16 09:00 Dose: 10 mg Labetalol HCl (Trandate) 400 mg PO BID [facility] Last Admin: 07/15/16 10:59 Dose: 400 mg Lactic Acid (Lac-Hydrin 12% Cream (140 G)) 0 ea TOP DAILY [facility] Last Admin: 07/15/16 10:55 Dose: 1 applic Levothyroxine Sodium (Synthroid) 175 mcg PO DAILY [facility] Last Admin: 07/15/16 10:57 Dose: 175 mcg Lorazepam (Ativan) 0.5 mg IV Q4H PRN PRN Reason: Anxiety Lorazepam (Ativan) 0.25 mg PO TID [facility] PRN Reason: Protocol Last Admin: 07/15/16 10:53 Dose: 0.25 mg Metoclopramide HCl (Reglan) 10 mg IVP Q6H [facility] Last Admin: 07/15/16 08:07 Dose: 10 mg Ondansetron HCl (Zofran Inj) 4 mg IVP Q4H PRN PRN Reason: Nausea/Vomiting Last Admin: 07/14/16 03:15 Dose: 4 mg Prednisolone Acetate (Pred Forte 1% Opht Susp) 0 ml OS QID [facility] Last Admin: 07/15/16 10:56 Dose: 1 drop Sertraline HCl (Zoloft) 50 mg PO DAILY [facility] Last Admin: 07/12/16 16:45 Dose: Not Given Tamsulosin HCl (Flomax) 0.4 mg PO DAILY [facility] Last Admin: 07/15/16 10:54 Dose: 0.4 mg Tramadol HCl (Ultram) 50 mg PO TID PRN PRN Reason: Pain, moderate (4-7) Zolpidem Tartrate (Ambien) 10 mg PO HS PRN PRN Reason: Insomnia - Labs Labs: 07/15/16 07:41 07/15/16 07:41 PT 11.9 Seconds (9.9-11.8) H 07/13/16 10:50 INR 1.10 (0.93-1.08) H 07/13/16 10:50 APTT 91.7 Seconds (23.7-30.8) H* 07/15/16 07:41 - Constitutional Appears: Non-toxic - Head Exam Head Exam: ATRAUMATIC - Eye Exam Eye Exam: Normal appearance - ENT Exam ENT Exam: Normal Exam - Neck Exam Neck Exam: Normal Inspection - Respiratory Exam Respiratory Exam: NORMAL BREATHING PATTERN - Cardiovascular Exam Cardiovascular Exam: +S1, +S2 - GI/Abdominal Exam GI & Abdominal Exam: Normal Bowel Sounds - Extremities Exam Additional comments: trace edema - Neurological Exam Neurological Exam: Alert, Oriented x3 - Psychiatric Exam Psychiatric exam: Normal Affect - Skin Skin Exam: Normal Color Assessment and Plan - Assessment and Plan (Free Text) Assessment: Imp: Jamin/Ckd4/HTN/Anemia/Indewelling lópez/Proteinuria/hyperkalemia plan: -renal function continues to improve -has b/l ckd likely all 2/2 to diabetic nephropathy +/- element of renovascular related disease, small r kidney suggestive of this -hyperk resolved -given persistent hypertension and edema on exam, he appears volume repleted and now mildly overloaded, recc d/c ivf will trial lasix 20 mg po daily since i believe he is lasix naive though not clear -at some point will want to retrial ly or arb -given anemia will check iron profile/ferritin and if deficient will load w/ iron prior to eyrthropoitein
--- NOTE | 2016-07-15 12:23 | PN ---
DATE: 07/15/2016 The patient is seen lying in the bed in room 269, bed 1. The patient is complaining of back pain. The patient states that the Tylenol is not helping him. The patient is otherwise feeling significantly better since the day of admission. REVIEW OF SYSTEMS: A 13-system review was done. Pertinent positives and negatives dictated above. PHYSICAL EXAMINATION: VITAL SIGNS: The patient's blood pressure is still elevated and 175/94. Telemetry shows sinus rhythm. The patient is afebrile. O2 sat is 95-98. INTAKE AND OUTPUT: Not documented. HEAD: Normocephalic, atraumatic. HEENT: Shows pinkish pale conjunctivae. Anicteric sclerae. No oropharyngeal lesion. NECK: No neck rigidity. CHEST: Symmetrical. LUNGS: Shows occasional rhonchi upper lung rg. CARDIOVASCULAR: S1, S2, regular rhythm. ABDOMEN: Soft, positive bowel sounds. GENITALIA: Male. Positive Lira catheter. EXTREMITIES: Shows no pitting edema, no calf tenderness, no Akiko sign. Positive weakness of the lower extremities noted. Upper extremity strength is within normal limits. MUSCULOSKELETAL: Shows elevated body mass index. GAIT: Could not be tested. VASCULAR: Palpable pulses. LABORATORY DATA: The patient's lab reviewed. The patient's hemoglobin has dropped to around 8.8. The rest of the remaining lab data reviewed. The patient still has renal insufficiency. The patient's EKG was reviewed from this morning. The patient's recommendations by infectious disease, nephrology and other consults reviewed. IMPRESSION AND PLAN: 1. Status post diabetic ketoacidosis. 2. Status post uncontrolled type 1 insulin-requiring diabetes mellitus with hemoglobin A1c of greater than 8. 3. Lumbar spine back pain. 4. Sepsis with hyperprocalcitoninemia. 5. Leukocytosis with granulocytosis. 6. Anemia with decreasing hemoglobin and hematocrit. 7. Hypertension. 8. Acute renal failure with underlying chronic kidney disease stage IV. 9. Severe proteinuria and severe microalbuminuria. 10. Gait dysfunction. 11. Obesity. 12. Sinus tachycardia. 1. Status post diabetic ketoacidosis and uncontrolled type 1 insulin-requiring diabetes mellitus with hyperglycemia. 2. Status post non-hemolyzed hyperkalemia. 3. Acute kidney injury with underlying chronic kidney disease stage IV with massive proteinuria. 4. Uncontrolled hypertension. 5. Questionable poor compliance with p.o. medications. 6. Sinus tachycardia. 7. Hypokalemia. 8. Questionable and possible non-ST elevation myocardial infarction with elevated troponin. 9. History of myocardial infarction and angioplasty and stent placement. 9. History of cerebral infarct. 10. Increased anion gap and high anion gap metabolic acidosis. 11. Lactic acidosis. 12. Leukocytosis with . 13. Normocytic anemia. 14. Uncontrolled insulin-requiring diabetes mellitus with elevated hemoglobin A1c. 1. Diabetic ketoacidosis with increased anion gap metabolic acidosis and high anion gap metabolic acidosis. 2. Type 1 insulin-dependent diabetes mellitus. 3. Uncontrolled decompensated type 1 insulin-dependent diabetes mellitus with hemoglobin A1c of greater than 8. 4. Diabetic microvascular complication with diabetic retinopathy, diabetic nephropathy, diabetic polyneuropathy and vasculopathy, history of diabetic macrovascular complication of coronary artery disease, peripheral vascular disease and vasculopathy, history of cerebrovascular accident, history of diabetic autonomic neuropathy and neurogenic bladder. 5. Hypertension. 6. Tachycardia. 7. Tachypnea. 8. Morbid obesity with elevated body mass index of 39. 9. Sepsis with hyperprocalcitonemia and lactic acidosis and increased anion gap and high anion gap metabolic acidosis. 10. Leukocytosis with granulocytosis. 11. Normocytic anemia. 12. Severe metabolic acidosis with lactic acidosis. 13. Status post nonhemolyzed hyperkalemia. 14. Acute kidney injury and acute renal failure. 15. Uncontrolled type 1 insulin-requiring diabetes mellitus with diabetic ketoacidosis and hyperglycemia and hemoglobin A1c of 8.2. 16. Hyperuricemia. 17. Questionable non-ST elevation myocardial infarction with elevated troponin. 18. Hypovitaminosis D. 19. Hyperprocalcitonemia. 20. Homocysteinemia. 21. History of thyroidism. 22. Lactic acidosis. 23. Status post hyperkalemia. 24. Hypokalemia at present. 25. Proteinuria, glycosuria, microscopic hematuria, pyuria, funguria. 26. Sinus tachycardia. 27. Severe dehydration. 28. Cerebral cortical atrophy of the brain. 29. Possible diabetic gastroparesis with nausea. 30. Sepsis with hyperprocalcitonemia and lactic acidosis. 31. History of myocardial infarction, history of type 1 diabetes mellitus, history of cerebrovascular accident, history of deep venous thrombosis, history of chronic constipation, history of diabetic micro and macrovascular complications. 32. History of insomnia, depression, anxiety. 33. Chronic kidney disease stage IV. 34. Hypertension. 35. Obesity. 1. Acute diabetic ketoacidosis with uncontrolled diabetes and hyperglycemia. 2. Non-hemolyzed hyperkalemia. 3. Increased anion gap metabolic acidosis. 4. Acute renal failure. 5. Uncontrolled diabetes mellitus with diabetic ketoacidosis, nonhemolyzed hyperkalemia and severe hyperglycemia. 6. Questionable sepsis with leukocytosis and granulocytosis. 7. Normocytic anemia. 8. Thrombocytosis. 9. Sinus tachycardia. 10. History of obesity, history of ____ diabetes mellitus, history of insomnia , history of depression, history of hypertension, history of diabetic neuropathy , history of anxiety disorder, history of neurogenic bladder, history of hypothyroidism, history of chronic back pain syndrome, history of depression, history of cerebrovascular accident, history of hypovitaminosis D, history of hypertension, history of obesity, history of gait dysfunction, history of questionable paraplegia. PLAN: At this time, patient's medications are as per MAR which was reviewed. The patient's management and treatment plan discussed and reviewed by infectious disease, endocrinology, nephrology and all the consultants involved in the care of the patient. The patient updated about his condition, diagnosis , treatment plan, management plan, etc. Discussed and explained to the patient in layman's language. All questions and concerns answered to satisfaction. Dictated and electronically signed, not read. Mikey Zhang MD cc: [id number] TT: 07/15/2016 12:23:03 Confirmation # [id number] Dictation # [id number] marek DENISE
--- NOTE | 2016-07-15 14:02 | PN ---
DATE: 07/15/2016 LOCATION: Room 269. This is a 35-year-old male with recent uncontrolled type 1 insulin-dependent diabetes, presenting her e with diabetic ketoacidosis and dehydration and has since then improved clinically and metabolically as ____. His glucose levels are fluctuating, but improved, and the latest glucose levels have range d from 198 to 240 mg/dL. His latest chemistries include a BUN of 29, sodium 139, potassium 4.2, chlo ride 110, CO2 of 22, glucose 211, creatinine 2.1. So, at this time, we will modify once again basal and bolus insulin regimen to improve his metabolic profile overall and also since his oral intake has improved accordingly. We will increase the Levemir to 28 units subQ at bedtime daily as ordered to start tonight. We will also increase the Humalog to 12 units subQ t.i.d. before meals to start at di nner time today as ordered. Will continue with levothyroxine dose regimen as given and ordered. We will obtain serial chemistries and supplement accordingly as needed. ____ Lexus Valdovinos MD cc: [id number] TT: 07/15/2016 14:01:25 Confirmation # [id number] Dictation # [id number] alon
--- NOTE | 2016-07-15 15:33 | CARD ---
APPROVED REPORT EKG Measurement Heart [id number] [place] [id number] [id number] <Conclusion> Normal sinus rhythm Normal ECG
--- NOTE | 2016-07-15 15:58 | CP.PCM.PN ---
Subjective - Date & Time of Evaluation Date of Evaluation: 07/15/16 Time of Evaluation: 15:30 - Subjective Subjective: Patient is anemic,has orders for blood tranfusion,needs consent for the same. Objective - Vital Signs/Intake and Output Vital Signs (last 24 hours): Temp Pulse Resp BP Pulse Ox 97.4 F L 73 20 190/101 H 98 07/15/16 12:00 07/15/16 12:00 07/15/16 12:00 07/15/16 12:34 07/14/16 11:10 Intake and Output: 07/15/16 07/15/16 06:59 18:59 Intake Total 2568 Output Total 1300 Balance 1268 - Medications Medications: Current Medications Acetaminophen (Tylenol 325mg Tab) 650 mg PO Q6H PRN PRN Reason: Headache Last Admin: 07/15/16 10:57 Dose: 650 mg Aspirin (Ecotrin) 81 mg PO DAILY [facility] Last Admin: 07/15/16 10:54 Dose: 81 mg Cefpodoxime Proxetil (Vantin) 100 mg PO Q12 [facility] PRN Reason: Protocol Stop: 07/22/16 10:01 Last Admin: 07/15/16 10:58 Dose: 100 mg Cholecalciferol (Vitamin D) 2,000 iu PO DAILY [facility] Last Admin: 07/15/16 10:58 Dose: 2,000 iu Clonidine HCl (Catapres) 0.1 mg PO BID [facility] Last Admin: 07/15/16 10:54 Dose: 0.1 mg Clopidogrel Bisulfate (Plavix) 75 mg PO DAILY [facility] Last Admin: 07/15/16 10:56 Dose: 75 mg Clotrimazole (Lotrimin 1%) 0 gm TOP BID [facility] Last Admin: 07/15/16 10:56 Dose: 1 inch Ergocalciferol (Drisdol 50,000 Intl Units Cap) 1 cap PO Q7D [facility] Last Admin: 07/13/16 09:20 Dose: Not Given Furosemide (Lasix) 20 mg PO DAILY [facility] Last Admin: 07/15/16 12:34 Dose: 20 mg Gabapentin (Neurontin) 600 mg PO TID [facility] PRN Reason: Protocol Last Admin: 07/15/16 14:00 Dose: Not Given Potassium Chloride/Dextrose/Sod Cl (Potassium Chl 20 Meq In D5-1/2ns) 1,000 mls @ 150 mls/hr IV .Q6H40M [facility] Last Admin: 07/15/16 03:35 Dose: 150 mls/hr Heparin Sodium/Sodium Chloride (Heparin 40533 Units/250ml 1/2 Normal Saline) 25 ,000 units in 250 mls @ 13.172 mls/hr IV .[id number] [facility]; 12 UNITS/KG/HR PRN Reason: Protocol Last Titration: 07/14/16 15:43 Dose: 15.75 units/kg/hr, 17.289 mls/hr Insulin Detemir (Levemir) 28 unit SC HS [facility] Insulin Human Lispro (Humalog Low) 0 units SC ACHS [facility] PRN Reason: Protocol Last Admin: 07/15/16 11:30 Dose: Not Given Insulin Human Lispro (Humalog) 12 units SC AC [facility] Labetalol HCl (Trandate) 10 mg IV Q6 PRN PRN Reason: Heart rate Last Admin: 07/14/16 09:00 Dose: 10 mg Labetalol HCl (Trandate) 400 mg PO BID [facility] Last Admin: 07/15/16 10:59 Dose: 400 mg Lactic Acid (Lac-Hydrin 12% Cream (140 G)) 0 ea TOP DAILY [facility] Last Admin: 07/15/16 10:55 Dose: 1 applic Levothyroxine Sodium (Synthroid) 175 mcg PO DAILY [facility] Last Admin: 07/15/16 10:57 Dose: 175 mcg Lorazepam (Ativan) 0.5 mg IV Q4H PRN PRN Reason: Anxiety Lorazepam (Ativan) 0.25 mg PO TID [facility] PRN Reason: Protocol Last Admin: 07/15/16 14:00 Dose: Not Given Metoclopramide HCl (Reglan) 10 mg IVP Q6H [facility] Last Admin: 07/15/16 14:39 Dose: 10 mg Ondansetron HCl (Zofran Inj) 4 mg IVP Q4H PRN PRN Reason: Nausea/Vomiting Last Admin: 07/14/16 03:15 Dose: 4 mg Prednisolone Acetate (Pred Forte 1% Opht Susp) 0 ml OS QID [facility] Last Admin: 07/15/16 14:39 Dose: 1 drop Sertraline HCl (Zoloft) 50 mg PO DAILY [facility] Last Admin: 07/12/16 16:45 Dose: Not Given Tamsulosin HCl (Flomax) 0.4 mg PO DAILY [facility] Last Admin: 07/15/16 10:54 Dose: 0.4 mg Tramadol HCl (Ultram) 50 mg PO TID PRN PRN Reason: Pain, moderate (4-7) Last Admin: 07/15/16 12:34 Dose: 50 mg Zolpidem Tartrate (Ambien) 10 mg PO HS PRN PRN Reason: Insomnia - Labs Labs: 07/15/16 07:41 07/15/16 07:41 PT 11.9 Seconds (9.9-11.8) H 07/13/16 10:50 INR 1.10 (0.93-1.08) H 07/13/16 10:50 APTT 91.7 Seconds (23.7-30.8) H* 07/15/16 07:41 - Constitutional Appears: No Acute Distress, Other (Oriented x 3) Assessment and Plan - Assessment and Plan (Free Text) Assessment: Anemia Plan: Explained to patient about his anemic state,about the need for blood transfusion and its risks and benefits. Patient stated he understood what he was told,then signed consent for the same.
[2016-07-15] MEDS: Labetalol 5 mg/ml Inj 20ML IV PRN (16:48)
[2016-07-15 17:47] LABS: IRON 97 ug/dL (45-180)
[2016-07-15] MEDS: Insulin Detemir 100 units/ml Vial (Levemir) SC SCH (21:36)
[2016-07-16] MEDS: Insulin Detemir 100 units/ml Vial (Levemir) SC SCH (00:37)
[2016-07-16] MEDS: Potassium Ch 20mEq in D5-1/2NS 1,000 ML IV SCH ×3 (04:38→10:30)
[2016-07-16 05:41] LABS: ADD MANUAL DIFF? NO
[2016-07-16 05:43] LABS: BASO # 0.06 K/mm3 (0.0-2.0); BASO % 0.8 % (0.0-3.0); EOS # 0.6 (0.0-0.7); EOS % 7.8 % (1.5-5.0); GRAN # 3.75 (1.4-6.5); GRAN % 48.6 % (50.0-68.0); HEMATOCRIT 32.3 % (42.0-52.0); LYMPH # 2.6 (1.2-3.4); LYMPH % 34.2 % (22.0-35.0); MEAN CELL VOLUME 87.3 fL (80.0-105.0); MEAN CORPUSCULAR HEMOGLOBIN 29.5 pg (25.0-35.0); MEAN CORPUSCULAR HGB CONC 33.7 g/dl (31.0-37.0); MEAN PLATELET VOLUME 10.2 fl (7.0-11.0); MONO # 0.7 (0.1-0.6); MONO % 8.6 % (1.0-6.0); PLATELET COUNT 257 10^3/uL (120.0-450.0); RED CELL DISTRIBUTION WIDTH 14.1 % (11.5-14.5); WHITE BLOOD COUNT 7.7 10^3/ul (4.5-11.0)
[2016-07-16 05:53] LABS: ALB/GLOB RATIO 0.9 (1.1-1.8); BILIRUBIN,DIRECT 0.4 mg/dL (0.0-0.4); BILIRUBIN,TOTAL 0.7 mg/dL (0.2-1.3); CALCIUM 8.3 mg/dL (8.4-10.5); MAGNESIUM 1.7 mg/dL (1.7-2.2); PHOSPHOROUS 3.6 mg/dL (2.5-4.5); POTASSIUM 4.1 mmol/L (3.6-5.0); TOTAL PROTEIN 5.5 g/dL (5.8-8.3)
[2016-07-16 06:14] LABS: INR 1.08 (0.93-1.08)
[2016-07-16] MEDS: Levothyroxine 175 MCG TAB PO SCH (09:17)
[2016-07-16] MEDS: Cefpodoxime (Vantin) 100 mg Tab PO SCH ×2 (09:17→21:23)
[2016-07-16] MEDS: Clotrimazole 1% Cream(30 gm) TOP SCH ×2 (09:19→17:29)
[2016-07-16] MEDS: PrednisoLONE 1% Opht Susp(5 ml) OS SCH ×4 (09:20→21:24)
[2016-07-16] MEDS: Insulin Lispro 1 UNITS/0.01 ML SC SCH ×3 (09:21→16:49)
[2016-07-16] MEDS: Insulin Lispro (humaLOG) LOW Coverage SC SCH ×4 (09:22→21:18)
--- NOTE | 2016-07-16 11:05 | PN ---
DATE: 07/16/2016 The patient is in bed in no acute distress, nontoxic. PHYSICAL EXAMINATION: VITAL SIGNS: Temperature is 97, blood pressure is 130/70, respiratory rate of 16. HEENT: Unremarkable. NECK: Supple. LUNGS: Have decreased breath sounds. HEART: Normal S1, S2. ABDOMEN: Soft, nontender. LABORATORY DATA: Reveals a white count of 7.7, hemoglobin of 10, platelets of 257. Chemistries reve al the BUN of 25, creatinine of 1.8. Urinalysis is noted. There is E. coli in the urine. Review of the medications reveals the patient to be on p.o. Vantin. ASSESSMENT AND PLAN: This is a 35-year-old male with morbid obesity, body mass index of over 40 with multiple cerebrovascular accidents, paralysis, diabetes, hypertension, anxiety, coronary artery dise ase, myocardial infarction, history of macular degeneration, urinary incontinence, alcohol abuse, ALL ERGIC TO SULFA, with severe sepsis with Escherichia coli in the urine, self-catheterization, acute ki dney injury, currently on p.o. Vantin to complete therapy. Case discussed with PMD. Perry Bird MD cc: [phone] TT: 07/16/2016 11:05:28 Confirmation # [id number] Dictation # [id number] fanny
[2016-07-16] MEDS: Heparin25000 units/250ml 1/2NS 25,000 UNITS/250 ML BAG IV SCH (12:00)
--- NOTE | 2016-07-16 12:59 | PN ---
DATE: 07/16/2016 ROOM: 269 This is a 35-year-old male with recent uncontrolled type 1 insulin-dependent diabetes with extremes o f glycemic fluctuations, presenting here with diabetic ketoacidosis and dehydration and now has episo dic bouts of symptomatic hypoglycemia related to a very poor and variable oral intake at this time. The latest glucose levels have ranged from 63-84 mg/dL. It was 132-190 last night, which was optimal . His latest chemistry showed a BUN of 25, sodium 138, potassium 4.1, chloride 110, CO2 23, glucose 94 and creatinine . So at this time, we will basal and bolus insulin regimen as ordered and lower the Humalog to 10 units subQ t.i.d. before meals as ordered and lower the Levemir to 24 units subQ at bedtime daily as given. We will titrate incrementally as indicated to optimize metabolic control. We will follow. Lexus Valdovinos MD cc: [id number] TT: 07/16/2016 12:58:47 Confirmation # [id number] Dictation # [id number] en
--- NOTE | 2016-07-16 14:29 | CP.PCM.PN ---
Subjective - Date & Time of Evaluation Date of Evaluation: 07/16/16 Time of Evaluation: 14:27 - Subjective Subjective: seen and examined eating and drinking Objective - Vital Signs/Intake and Output Vital Signs (last 24 hours): Temp Pulse Resp BP Pulse Ox 97.7 F 68 20 168/99 H 100 07/16/16 12:00 07/16/16 13:04 07/16/16 12:00 07/16/16 13:04 07/16/16 06:00 Intake and Output: 07/16/16 07/16/16 06:59 18:59 Intake Total 5240 Output Total 2175 Balance 3065 - Medications Medications: Current Medications Acetaminophen (Tylenol 325mg Tab) 650 mg PO Q6H PRN PRN Reason: Headache Last Admin: 07/16/16 12:24 Dose: 650 mg Aspirin (Ecotrin) 81 mg PO DAILY [facility] Last Admin: 07/16/16 09:19 Dose: 81 mg Cefpodoxime Proxetil (Vantin) 100 mg PO Q12 [facility] PRN Reason: Protocol Stop: 07/22/16 10:01 Last Admin: 07/16/16 09:17 Dose: 100 mg Cholecalciferol (Vitamin D) 2,000 iu PO DAILY [facility] Last Admin: 07/16/16 09:18 Dose: 2,000 iu Clonidine HCl (Catapres) 0.1 mg PO BID [facility] Last Admin: 07/16/16 09:18 Dose: 0.1 mg Clopidogrel Bisulfate (Plavix) 75 mg PO DAILY [facility] Last Admin: 07/16/16 09:18 Dose: 75 mg Clotrimazole (Lotrimin 1%) 0 gm TOP BID [facility] Last Admin: 07/16/16 09:19 Dose: 1 inch Ergocalciferol (Drisdol 50,000 Intl Units Cap) 1 cap PO Q7D [facility] Last Admin: 07/13/16 09:20 Dose: Not Given Furosemide (Lasix) 20 mg PO DAILY [facility] Last Admin: 07/16/16 09:19 Dose: 20 mg Gabapentin (Neurontin) 600 mg PO TID [facility] PRN Reason: Protocol Last Admin: 07/16/16 09:17 Dose: 600 mg Hydralazine HCl (Apresoline) 10 mg IVP Q6 PRN PRN Reason: HTN Last Admin: 07/16/16 13:04 Dose: 10 mg Heparin Sodium/Sodium Chloride (Heparin 62671 Units/250ml 1/2 Normal Saline) 25 ,000 units in 250 mls @ 13.172 mls/hr IV .[id number] [facility]; 12 UNITS/KG/HR PRN Reason: Protocol Last Admin: 07/16/16 12:00 Dose: 11.56 units/kg/hr, 12.7 mls/hr Insulin Detemir (Levemir) 24 unit SC HS [facility] Insulin Human Lispro (Humalog Low) 0 units SC ACHS [facility] PRN Reason: Protocol Last Admin: 07/16/16 09:22 Dose: Not Given Insulin Human Lispro (Humalog) 10 units SC AC [facility] Labetalol HCl (Trandate) 400 mg PO BID [facility] Last Admin: 07/16/16 09:19 Dose: 400 mg Lactic Acid (Lac-Hydrin 12% Cream (140 G)) 0 ea TOP DAILY [facility] Last Admin: 07/15/16 10:55 Dose: 1 applic Levothyroxine Sodium (Synthroid) 175 mcg PO DAILY [facility] Last Admin: 07/16/16 09:17 Dose: 175 mcg Lorazepam (Ativan) 0.5 mg IV Q4H PRN PRN Reason: Anxiety Lorazepam (Ativan) 0.25 mg PO TID [facility] PRN Reason: Protocol Last Admin: 07/16/16 09:21 Dose: 0.25 mg Metoclopramide HCl (Reglan) 10 mg IVP Q6H [facility] Last Admin: 07/16/16 07:06 Dose: 10 mg Ondansetron HCl (Zofran Inj) 4 mg IVP Q4H PRN PRN Reason: Nausea/Vomiting Last Admin: 07/14/16 03:15 Dose: 4 mg Prednisolone Acetate (Pred Forte 1% Opht Susp) 0 ml OS QID [facility] Last Admin: 07/16/16 09:20 Dose: 1 drop Sertraline HCl (Zoloft) 50 mg PO DAILY [facility] Last Admin: 07/16/16 09:18 Dose: 50 mg Tamsulosin HCl (Flomax) 0.4 mg PO DAILY [facility] Last Admin: 07/16/16 09:18 Dose: 0.4 mg Tramadol HCl (Ultram) 50 mg PO TID PRN PRN Reason: Pain, moderate (4-7) Last Admin: 07/16/16 05:31 Dose: 50 mg Zolpidem Tartrate (Ambien) 10 mg PO HS PRN PRN Reason: Insomnia - Labs Labs: 07/16/16 05:30 07/16/16 05:30 PT 11.7 Seconds (9.9-11.8) 07/16/16 05:30 INR 1.08 (0.93-1.08) 07/16/16 05:30 APTT 139.6 Seconds (23.7-30.8) H* 07/16/16 09:26 - Constitutional Appears: Non-toxic - Head Exam Head Exam: ATRAUMATIC - Eye Exam Eye Exam: Normal appearance - Neck Exam Neck Exam: Normal Inspection - Respiratory Exam Respiratory Exam: NORMAL BREATHING PATTERN - Cardiovascular Exam Cardiovascular Exam: +S1, +S2 - GI/Abdominal Exam GI & Abdominal Exam: Normal Bowel Sounds - Extremities Exam Additional comments: trace edema - Neurological Exam Neurological Exam: Alert, Oriented x3 - Psychiatric Exam Psychiatric exam: Normal Affect - Skin Skin Exam: Normal Color Assessment and Plan - Assessment and Plan (Free Text) Assessment: Imp: Jamin/Ckd4/HTN/Anemia/Indewelling lópez/Proteinuria/hyperkalemia plan: -renal function continues to improve -has b/l ckd likely due todiabetic nephropathy +/- element of renovascular related disease, small r kidney suggestive of this -would not suggest any intervention at this time, will soon retrial an ly or arb -hyperk resolved -bp improving, on po lasix reduce intake -iron replete, if hgb drops <10 will start LEONARD
--- NOTE | 2016-07-16 14:53 | CARD ---
APPROVED REPORT EKG Measurement Heart [id number] [place] [id number] [id number] <Conclusion> Normal sinus rhythm Prolonged QT Abnormal ECG
--- NOTE | 2016-07-16 15:22 | PN ---
DATE: 07/16/2016 SUBJECTIVE: The patient is seen lying in bed in room 269, bed 1. The patient is lying in the bed. Overnight last 24 hours, patient's blood pressure was elevated, which required p.r.n. IV hydralazine. The patient stated that his back pain is much less today. PHYSICAL EXAMINATION: VITAL SIGNS: T-max is 97.4. Telemetry shows a heart rate of 70s, 80s, 84, 56, 67. Blood pressure in the last 24 hours was up to 177/106, 173/97, 167/85 down to 130/73, 168/90. respirations 20. O2 sat is 98% to 100%. INTAKE AND OUTPUT: Intake yesterday 2788, output 1300. Today's intake 5140, output 2175. HEAD: Normocephalic, atraumatic. HEENT: Shows pinkish, pale conjunctivae, anicteric sclerae. No oropharyngeal lesion. NECK: No neck rigidity. CHEST: Kyphosis. LUNGS: Shows upper lung rg occasional rhonchi. CARDIOVASCULAR: S1, S2, regular rhythm. ABDOMEN: Soft, obese, positive bowel sounds. GENITALIA: Male. Positive Lira catheter. EXTREMITIES: Show trace swelling of the lower extremity. MUSCULOSKELETAL: Shows a body mass index of 40. Positive weakness of the lower extremity noted. NEUROLOGIC: Cranial nerves II-XII limited. Gait examination could not be tested. PSYCHIATRIC: Positive for anxiety. Positive for history of anxiety, positive for history of insomnia. DIAGNOSTICS: From 07/16: WBC 7.7, hemoglobin and hematocrit 11 and 32.3 after 1 unit of PRBC, platelets 257. PTT is 139. Sodium 138, potassium 4.1, chloride 110, CO2 of 23, anion gap 9, BUN 25, creatinine 1.8, GFR 52. Glucose 89, 49, 84, 53, 94, 132. Calcium 8.3, phosphorus 3.6, magnesium 1.7. Iron 97, TIBC 176. Ferritin 60, iron saturation 55. LFTs are normal. Total protein 5.5 , albumin 2.6. Procalcitonin level is elevated at 2.6, down from 9.7. Urine microalbumin greater than 950. Urine culture from 05/12 Escherichia coli. Urine culture from 05/15 yeast species between to 50,000-100,000. Clostridium difficile antigen and toxin negative. The patient received 2 units of PRBC. IMPRESSION AND PLAN: 1. Status post diabetic ketoacidosis and uncontrolled type 1 insulin-requiring diabetes mellitus with hyperglycemia. 2. Status post non-hemolyzed hyperkalemia. 3. Acute kidney injury with underlying chronic kidney disease stage IV with massive proteinuria. 4. Uncontrolled hypertension. 5. Back pain syndrome. 6. Morbid obesity with elevated body mass index of 30. 7. Leukocytosis with granulocytosis and thrombocytosis. 8. Normocytic anemia, status post packed red blood cell transfusion. 9. Increased anion gap, and high anion gap metabolic acidosis. 10. Acute kidney injury. 11. Increased anion gap, lactic acidosis. 12. Uncontrolled type 1 insulin-requiring diabetes mellitus with hemoglobin A1c of 8.2. 13. Questionable acute non-ST elevation myocardial infarction with elevated troponin. 14. Hyperuricemia. 15. Protein malnutrition. 16. Hypoalbuminemia. 17. Paraplegia and severe gait dysfunction. 18. Hyperprocalcitoninemia. 19. Hypercholesterolemia with elevated LDL. 20. Hypovitaminosis D. 21. Hyperhomocysteinemia. 22. Proteinuria, glycosuria, microscopic hematuria, pyuria, funguria and massive microalbuminuria. 23. Escherichia coli urinary tract infection and funguria. 24. Status post 2 units of packed red blood cells. 25. Uncontrolled type 1 insulin-requiring diabetes mellitus with hyper and hypoglycemia. 26. Morbid obesity. 27. History of multiple cerebrovascular accidents, history of paraplegia, history of coronary artery disease, history of multiple angioplasties and myocardial infarction. 28. Severe sepsis with Escherichia coli urinary tract infection and funguria and yeast urinary tract infection. 29. Hypertensive cardiovascular disease. 30. Neurogenic bladder with indwelling Lira. 31. History of anxiety, depression. 32. Resolving delirium. 33. History of depression and anxiety. 34. Sinus tachycardia. 35. Atrophic right kidney. 36. Left ventricular ejection fraction of 53%. 37. Concentric left ventricular hypertrophy. 38. sinus tachycardia. 39. Uncontrolled hypertension. 40. Severe gait dysfunction. 1. Status post diabetic ketoacidosis. 2. Status post uncontrolled type 1 insulin-requiring diabetes mellitus with hemoglobin A1c of greater than 8. 3. Lumbar spine back pain. 4. Sepsis with hyperprocalcitoninemia. 5. Leukocytosis with granulocytosis. 6. Anemia with decreasing hemoglobin and hematocrit. 7. Hypertension. 8. Acute renal failure with underlying chronic kidney disease stage IV. 9. Severe proteinuria and severe microalbuminuria. 10. Gait dysfunction. 11. Obesity. 12. Sinus tachycardia. 1. Status post diabetic ketoacidosis and uncontrolled type 1 insulin-requiring diabetes mellitus with hyperglycemia. 2. Status post non-hemolyzed hyperkalemia. 3. Acute kidney injury with underlying chronic kidney disease stage IV with massive proteinuria. 4. Uncontrolled hypertension. 5. Questionable poor compliance with p.o. medications. 6. Sinus tachycardia. 7. Hypokalemia. 8. Questionable and possible non-ST elevation myocardial infarction with elevated troponin. 9. History of myocardial infarction and angioplasty and stent placement. 9. History of cerebral infarct. 10. Increased anion gap and high anion gap metabolic acidosis. 11. Lactic acidosis. 12. Leukocytosis with . 13. Normocytic anemia. 14. Uncontrolled insulin-requiring diabetes mellitus with elevated hemoglobin A1c. 1. Diabetic ketoacidosis with increased anion gap metabolic acidosis and high anion gap metabolic acidosis. 2. Type 1 insulin-dependent diabetes mellitus. 3. Uncontrolled decompensated type 1 insulin-dependent diabetes mellitus with hemoglobin A1c of greater than 8. 4. Diabetic microvascular complication with diabetic retinopathy, diabetic nephropathy, diabetic polyneuropathy and vasculopathy, history of diabetic macrovascular complication of coronary artery disease, peripheral vascular disease and vasculopathy, history of cerebrovascular accident, history of diabetic autonomic neuropathy and neurogenic bladder. 5. Hypertension. 6. Tachycardia. 7. Tachypnea. 8. Morbid obesity with elevated body mass index of 39. 9. Sepsis with hyperprocalcitonemia and lactic acidosis and increased anion gap and high anion gap metabolic acidosis. 10. Leukocytosis with granulocytosis. 11. Normocytic anemia. 12. Severe metabolic acidosis with lactic acidosis. 13. Status post nonhemolyzed hyperkalemia. 14. Acute kidney injury and acute renal failure. 15. Uncontrolled type 1 insulin-requiring diabetes mellitus with diabetic ketoacidosis and hyperglycemia and hemoglobin A1c of 8.2. 16. Hyperuricemia. 17. Questionable non-ST elevation myocardial infarction with elevated troponin. 18. Hypovitaminosis D. 19. Hyperprocalcitonemia. 20. Homocysteinemia. 21. History of thyroidism. 22. Lactic acidosis. 23. Status post hyperkalemia. 24. Hypokalemia at present. 25. Proteinuria, glycosuria, microscopic hematuria, pyuria, funguria. 26. Sinus tachycardia. 27. Severe dehydration. 28. Cerebral cortical atrophy of the brain. 29. Possible diabetic gastroparesis with nausea. 30. Sepsis with hyperprocalcitonemia and lactic acidosis. 31. History of myocardial infarction, history of type 1 diabetes mellitus, history of cerebrovascular accident, history of deep venous thrombosis, history of chronic constipation, history of diabetic micro and macrovascular complications. 32. History of insomnia, depression, anxiety. 33. Chronic kidney disease stage IV. 34. Hypertension. 35. Obesity. 1. Acute diabetic ketoacidosis with uncontrolled diabetes and hyperglycemia. 2. Non-hemolyzed hyperkalemia. 3. Increased anion gap metabolic acidosis. 4. Acute renal failure. 5. Uncontrolled diabetes mellitus with diabetic ketoacidosis, nonhemolyzed hyperkalemia and severe hyperglycemia. 6. Questionable sepsis with leukocytosis and granulocytosis. 7. Normocytic anemia. 8. Thrombocytosis. 9. Sinus tachycardia. 10. History of obesity, history of ____ diabetes mellitus, history of insomnia , history of depression, history of hypertension, history of diabetic neuropathy , history of anxiety disorder, history of neurogenic bladder, history of hypothyroidism, history of chronic back pain syndrome, history of depression, history of cerebrovascular accident, history of hypovitaminosis D, history of hypertension, history of obesity, history of gait dysfunction, history of questionable paraplegia. PLAN: At this time, the patient's IV fluid has been discontinued. The patient has been ordered serial labs. CURRENT CONSULTATIONS: 1. Endocrinology. 2. Infectious disease. 3. Nephrology. 4. Podiatry. 5. Cardiology. 6. Psychiatry. CURRENT MEDICATIONS: 1. Ambien 10 mg at bedtime p.r.n. 2. Hydralazine 10 mg IV q. 6 hours p.r.n. 3. Ativan 0.5 IV q. 4 p.r.n. 4. Ativan 0.25 p.o. t.i.d. 5. Clonidine 0.1 mg twice a day. 6. Drisdol 50,000 weekly. 7. Ecotrin 81 mg daily. 8. Flomax 0.4 mg daily. 9. The patient is on heparin drip, the duration of which needs to be determined by the shoe cleaner, Dr. Chandler. The patient is on Humalog 10 units before meals and Humalog low dose sliding scale coverage, Lac-Hydrin lotion. 10. The patient is started on Lasix 20 mg daily. 11. Levemir 24 units at bedtime, Lotrimin cream to the toes. 12. Neurontin 600 three times a day, Plavix 75 mg daily, suspension, Reglan 10 mg IV q. 6. 13. Synthroid 175 mcg p.o. daily. 14. Trandate 10 mg IV q. 6 hours p.r.n., which will be discontinued as patient is already on clonidine and hydralazine p.r.n. 15. The patient is on Trandate 400 mg twice a day. 16. The patient is on Tylenol 650 q. 6 p.r.n. 17. Ultram 50 t.i.d. 18. The patient is started on Vantin 100 mg q. 12 for 7 days. 19. Vitamin D3 at 2000 units daily. 20. Zofran 4 mg IV q. 4. 21. Zoloft 50 mg daily. The patient is on heart healthy diet. The patient has been ordered out of bed, ELVA boatengings, SCDs. The patient has been ordered physical therapy, occupational therapy. At present, it appears that patient is pretty much stable for discharge planning. The patient needs physical therapy. According to the patient, patient has been to [facility] rehab and [facility] rehab in the past. The patient at this time should be okay to go back to either acute versus subacute rehab. The patient is off all IV fluids and antibiotics. The patient, at this time, is medically and relatively medically stable for discharge. If the patient's heparin drip is discontinued by cardiology, patient can be discharged unless there are other contraindications to discharge. Dictated and electronically signed, not read. Mikey Zhang MD cc: [phone] TT: 07/16/2016 15:21:41 Confirmation # [id number] Dictation # [id number] fanny DENISE
[2016-07-16] MEDS: Ammonium Lactate 12% Cream (140 g) TOP SCH (17:20)
[2016-07-16] MEDS ORDERED: Insulin Detemir 100 units/ml Vial (Levemir) SC SCH (22:00)
[2016-07-17 00:30] VITALS: RESP 20
[2016-07-17 05:52] VITALS: O2SAT 96
[2016-07-17 06:26] LABS: ADD MANUAL DIFF? NO
[2016-07-17 06:51] LABS: ALB/GLOB RATIO 0.9 (1.1-1.8); BILIRUBIN,DIRECT 0.4 mg/dL (0.0-0.4); BILIRUBIN,TOTAL 0.6 mg/dL (0.2-1.3); CALCIUM 8.3 mg/dL (8.4-10.5); MAGNESIUM 1.7 mg/dL (1.7-2.2); PHOSPHOROUS 4.5 mg/dL (2.5-4.5); POTASSIUM 4.9 mmol/L (3.6-5.0); TOTAL PROTEIN 5.4 g/dL (5.8-8.3)
[2016-07-17 07:27] LABS: BASO # 0.05 K/mm3 (0.0-2.0); BASO % 0.6 % (0.0-3.0); EOS # 0.5 (0.0-0.7); EOS % 6.1 % (1.5-5.0); GRAN # 4.18 (1.4-6.5); GRAN % 54.4 % (50.0-68.0); HEMATOCRIT 32.7 % (42.0-52.0); LYMPH # 2.4 (1.2-3.4); LYMPH % 30.5 % (22.0-35.0); MEAN CELL VOLUME 88.6 fL (80.0-105.0); MEAN CORPUSCULAR HEMOGLOBIN 29.3 pg (25.0-35.0); MEAN PLATELET VOLUME 11.5 fl (7.0-11.0); MONO # 0.7 (0.1-0.6); MONO % 8.4 % (1.0-6.0); PLATELET COUNT 235 10^3/uL (120.0-450.0); RED CELL DISTRIBUTION WIDTH 14.3 % (11.5-14.5); WHITE BLOOD COUNT 7.7 10^3/ul (4.5-11.0)
[2016-07-17] MEDS: Potassium Ch 20mEq in D5-1/2NS 1,000 ML IV SCH ×2 (07:36→07:37)
[2016-07-17] MEDS: Insulin Lispro (humaLOG) LOW Coverage SC SCH ×2 (08:08→12:53)
[2016-07-17] MEDS: Insulin Lispro 1 UNITS/0.01 ML SC SCH ×2 (08:09→12:56)
[2016-07-17] MEDS: Levothyroxine 175 MCG TAB PO SCH (09:33)
[2016-07-17] MEDS: Cefpodoxime (Vantin) 100 mg Tab PO SCH (09:34)
[2016-07-17] MEDS: PrednisoLONE 1% Opht Susp(5 ml) OS SCH ×2 (09:37→14:29)
[2016-07-17] MEDS: Ammonium Lactate 12% Cream (140 g) TOP SCH (09:38)
[2016-07-17] MEDS: Clotrimazole 1% Cream(30 gm) TOP SCH (09:38)
--- NOTE | 2016-07-17 11:25 | CP.PCM.PN ---
Subjective - Date & Time of Evaluation Date of Evaluation: 07/17/16 Time of Evaluation: 11:18 - Subjective Subjective: Follow up nephrology note Assessment: Acute Kidney Injury likely due to Hyperglycemia and dehydration: resolved Chronic Kidney Disease Stage 3 with 10 gm proteinuria likely due to diabetic nephropathy, atrophic Rt Kidney, hx of recurrent AKIs uncontrolled severe Hypertension: better Vit D def severe HAGMA with metabolic alkalosis with respi compensation [due to diabetic ketoacidosis]: resolved Hyperkalemia (due to combination of CKD, hyperglycemia/DKA and acidosis): RESOLVED chronic Anemia (high TSAT and normal Ferritin), hx of CVA, CAD, chronic indwelling lópez Plan Hypertension control: continue with current meds. will resume lisinopril and continue with lasix continue with Vitamin D 50,000 units weekly for 12 weeks Monitor I/O, daily weights and renal function. Dose meds/antibiotics for reduced GFR 30-40. Avoid fleets enema/magnesium based laxatives. Avoid nephrotoxins/NSAIDs/ iodinated contrast (unless needed emergently). Glycemic control. Further work up for as per primary team. being planned for d/c to rehab. stable from renal perspective. F/up in office with me 1-2 week after d/c Thanks for allowing me to participate in care of your patient. Will follow patient with you. Please call if any Qs Dr Artis Mendoza ([address] [place] [address]) Office: [phone] Subjective: no new complaints at this time. Denies chest pain, palpitations. denies SOB no nausea no vomiting. noted events overnight. he had picc line left arm. he feels much better. reports chronic back pain Exam: pt comfortable, no acute distress. lying in bed. Vitals reviewed and noted as below Lungs: clear to auscultation, b/l air entry + and equal, no use of accessory muscles CVS: s1s2 normal. no rub/gallop. Abdomen: soft non tender obese no organomegaly Ext 1+ edema Neuro: AO x 3 , chronic leg weakness. he is chronically bed bound. Labs/imaging/EKG reviewed. Past medical history, past surgical history, family history, social history, allergy reviewed and noted as below renal sono: Rt kidney atrophic 8 cm and left kidney unremarkable renal artery doppler: no hemodynamically significant stenosis GN work up as C3, C4, DINA, Anti dsDNA, ANCA, Hep B and Hep C serology has been neg in past UA 3+ protein with small to moderate blood (has chronic lpóez) and 10 gram proteinuria on spot pro/cr ratio uric acid 8.6 and CK 80 Ferritin 60 TSAT 55% Vit D <12 Objective - Vital Signs/Intake and Output Vital Signs (last 24 hours): Temp Pulse Resp BP Pulse Ox 97.6 F 74 20 172/96 H 96 07/17/16 05:51 07/17/16 05:59 07/17/16 05:51 07/17/16 09:33 07/17/16 05:51 Intake and Output: 07/17/16 07/17/16 06:59 18:59 Intake Total 639 Output Total 2150 Balance -1511 - Medications Medications: Current Medications Acetaminophen (Tylenol 325mg Tab) 650 mg PO Q6H PRN PRN Reason: Headache Last Admin: 07/16/16 21:45 Dose: 650 mg Aspirin (Ecotrin) 81 mg PO DAILY [facility] Last Admin: 07/17/16 09:33 Dose: 81 mg Atorvastatin Calcium (Lipitor) 20 mg PO DIN [facility] Cefpodoxime Proxetil (Vantin) 100 mg PO Q12 [facility] PRN Reason: Protocol Stop: 07/22/16 10:01 Last Admin: 07/17/16 09:34 Dose: 100 mg Cholecalciferol (Vitamin D) 2,000 iu PO DAILY [facility] Last Admin: 07/17/16 09:32 Dose: 2,000 iu Clonidine HCl (Catapres) 0.1 mg PO TID [facility] Last Admin: 07/17/16 09:34 Dose: 0.1 mg Clopidogrel Bisulfate (Plavix) 75 mg PO DAILY [facility] Last Admin: 07/17/16 09:34 Dose: 75 mg Clotrimazole (Lotrimin 1%) 0 gm TOP BID [facility] Last Admin: 07/17/16 09:38 Dose: 1 inch Ergocalciferol (Drisdol 50,000 Intl Units Cap) 1 cap PO Q7D [facility] Last Admin: 07/13/16 09:20 Dose: Not Given Fluconazole (Diflucan) 100 mg PO DAILY [facility] PRN Reason: Protocol Last Admin: 07/17/16 09:33 Dose: 100 mg Furosemide (Lasix) 20 mg PO DAILY [facility] Last Admin: 07/17/16 09:33 Dose: 20 mg Gabapentin (Neurontin) 600 mg PO TID [facility] PRN Reason: Protocol Last Admin: 07/17/16 09:34 Dose: 600 mg Hydralazine HCl (Apresoline) 10 mg IVP Q6 PRN PRN Reason: HTN Last Admin: 07/17/16 05:59 Dose: 10 mg Heparin Sodium/Sodium Chloride (Heparin 56676 Units/250ml 1/2 Normal Saline) 25 ,000 units in 250 mls @ 13.172 mls/hr IV .[id number] PARAG; 12 UNITS/KG/HR PRN Reason: Protocol Last Admin: 07/16/16 12:00 Dose: 11.56 units/kg/hr, 12.7 mls/hr Insulin Detemir (Levemir) 24 unit SC HS [facility] Last Admin: 07/16/16 21:19 Dose: Not Given Insulin Human Lispro (Humalog Low) 0 units SC ACHS [facility] PRN Reason: Protocol Last Admin: 07/17/16 08:08 Dose: 3 units Insulin Human Lispro (Humalog) 10 units SC AC [facility] Last Admin: 07/17/16 08:09 Dose: 10 units Labetalol HCl (Trandate) 400 mg PO BID [facility] Last Admin: 07/17/16 09:37 Dose: 400 mg Lactic Acid (Lac-Hydrin 12% Cream (140 G)) 0 ea TOP DAILY [facility] Last Admin: 07/17/16 09:38 Dose: 1 applic Levothyroxine Sodium (Synthroid) 175 mcg PO DAILY [facility] Last Admin: 07/17/16 09:33 Dose: 175 mcg Lisinopril (Zestril) 10 mg PO DAILY [facility] Lorazepam (Ativan) 0.5 mg IV Q4H PRN PRN Reason: Anxiety Lorazepam (Ativan) 0.25 mg PO TID [facility] PRN Reason: Protocol Last Admin: 07/17/16 09:33 Dose: 0.25 mg Metoclopramide HCl (Reglan) 10 mg IVP Q6H [facility] Last Admin: 07/17/16 06:00 Dose: 10 mg Ondansetron HCl (Zofran Inj) 4 mg IVP Q4H PRN PRN Reason: Nausea/Vomiting Last Admin: 07/14/16 03:15 Dose: 4 mg Prednisolone Acetate (Pred Forte 1% Opht Susp) 0 ml OS QID [facility] Last Admin: 07/17/16 09:37 Dose: 1 drop Sertraline HCl (Zoloft) 50 mg PO DAILY [facility] Last Admin: 07/17/16 09:34 Dose: 50 mg Tamsulosin HCl (Flomax) 0.4 mg PO DAILY [facility] Last Admin: 07/17/16 09:34 Dose: 0.4 mg Tramadol HCl (Ultram) 50 mg PO TID PRN PRN Reason: Pain, moderate (4-7) Last Admin: 07/17/16 00:02 Dose: 50 mg Zolpidem Tartrate (Ambien) 10 mg PO HS PRN PRN Reason: Insomnia Last Admin: 07/17/16 00:02 Dose: 10 mg - Labs Labs: 07/17/16 06:00 07/17/16 06:00 PT 11.7 Seconds (9.9-11.8) 07/16/16 05:30 INR 1.08 (0.93-1.08) 07/16/16 05:30 APTT 57.5 Seconds (23.7-30.8) H 07/17/16 06:00
--- NOTE | 2016-07-17 11:52 | PN ---
DATE: 07/17/2016 CARDIOLOGY FOLLOWUP The patient is awake, alert, and asymptomatic. PHYSICAL EXAMINATION: VITAL SIGNS: Blood pressure is 177/96. The heart rate is in the 70s, normal sinus rhythm. NECK: Negative JVD. LUNGS: Without rales. HEART: Revealed S1, S2. EXTREMITIES: Without edema. LABORATORY DATA: The glucose is 393. BUN and creatinine are 30 and 1.9. Hemoglobin is 10.8. IMPRESSION: 1. Non-ST elevation myocardial infarction. 2. Renal insufficiency, which is getting better. 3. Hypertension. 4. Anemia. 5. No evidence for renal artery stenosis. 6. Status post diabetic ketoacidosis. Given these findings, the patient can be transferred to rehab today. The patient is being treated with hydralazine and clonidine for his hypertension. He should continue his aspirin and statin therapy. From a cardiac perspective, the patient can be di scharged. We will arrange for an outpatient stress test. Andriy Chandler MD cc: [id number] TT: 07/17/2016 09:15:18 Confirmation # [id number] Dictation # [id number] alon
[2016-07-17 12:45] VITALS: BP 160/91; PULSE 81; TEMP 98.3
--- NOTE | 2016-07-17 13:12 | PN ---
DATE: 07/17/2016 ENDO FOLLOWUP NOTE The patient is in room 269. ____ followed closely for metabolic management. His glycemic levels are fluctuating, but much improv ed at this time. LABORATORY DATA: The latest chemistries ____, sodium 133, potassium 4.9, chloride 106, CO2 of 20, gl ucose 393, and creatinine 1.9. Glucose levels have ranged from ____-313 mg/dL. So at this time, we will continue ____ basal and bolus insulin regimen ____ with Levemir given as 24 units subQ at bedtime daily, and Humalog given as 10 units subQ t.i.d. before meals as ordered. We w ill titrate and incrementally as indicated to optimize metabolic control. We will follow. Lexus Valdovinos MD cc: [phone] TT: 07/17/2016 12:10:19 Confirmation # [id number] Dictation # [id number] alon
--- NOTE | 2016-07-17 15:48 | PN ---
DATE: 07/17/2016 The patient is in bed, in no acute distress, nontoxic. PHYSICAL EXAMINATION: VITAL SIGNS: Temperature is 97, blood pressure is 170/90, respiratory rate of 16. HEENT: Unremarkable. NECK: Supple. LUNGS: Have decreased breath sounds. HEART: Normal S1, S2. ABDOMEN: Soft. LABORATORY EXAMINATION: Reveals a white count of 7.7, hemoglobin of 10, platelets of 235. Coagulati on is noted. Chemistries reveals the BUN of 30, creatinine of 1.9. Urinalysis is noted. Microbiolo gy is noted. Review of orders, p.o. Vantin. ASSESSMENT AND PLAN: A 35-year-old male with morbid obesity, a body mass index of over 40 and multip le cerebrovascular accidents, paralysis, diabetes, hypertension, anxiety, coronary artery disease, my ocardial infarction, history of macular degeneration, urinary incontinence, alcohol abuse, who is ALL ERGIC TO SULFA. On this admission, admitted with severe sepsis with Escherichia coli in the urine, s elf-catheterization, acute kidney injury. Currently on p.o. Vantin. Today is day #3 of 7 days of p. o. Vantin. Dr. Zhang has added Diflucan today. We will discuss with him regarding the role of Diflu can. Perry Bird MD cc: [id number] TT: 07/17/2016 15:48:13 Confirmation # [id number] Dictation # [id number] en
--- NOTE | 2016-07-17 15:52 | DS ---
The patient is seen lying in the bed in room 269, bed 1. The patient is alert, awake, responsive. The patient does not appear to be in any distress. PHYSICAL EXAMINATION: VITAL SIGNS: Telemetry shows sinus rhythm in 60s and 70s. T-max is 97.6. Heart rate 74-75, blood pressure 172/96, respirations 20, O2 sat 96. INTAKE AND OUTPUT: Intake 639, output 2150. HEAD: Normocephalic, atraumatic. HEENT: Shows pinkish, pale conjunctivae, anicteric sclerae, no oropharyngeal lesion. NECK: No neck rigidity. CHEST: Kyphosis. LUNGS: Shows no rales, crackles, or wheezing. HEAD: Normocephalic, atraumatic. HEENT: Shows pinkish, pale conjunctivae, anicteric sclerae. No oropharyngeal lesion. NECK: No neck rigidity. CHEST: Kyphosis. LUNGS: Shows no rales, crackles, or wheezing. CARDIOVASCULAR: Shows S1, S2, regular rhythm. S1, S2 regular rhythm. S1, S2 regular rhythm. ABDOMEN: Soft, positive bowel sounds. GENITALIA: Male. Positive Lira catheter. EXTREMITIES: Shows a decreasing swelling of the lower extremity. VASCULAR: Palpable pulses. MUSCULOSKELETAL: Shows a body mass index of 41. NEUROLOGIC: Gait examination not tested. Positive weakness of the lower extremity. DIAGNOSTICS: 07/17, WBC 7.7, hemoglobin and hematocrit 10.8 and 32.7, platelet 235. Sodium 133, potassium 4.9, chloride 106, CO2 of 20, anion gap 12, BUN 30, creatinine 1.9, GFR 49. Glucose 393, 319, 291, 215. Calcium 8.3, phosphorus __ __, magnesium 1.7. LFTs are normal. Total protein 5.4, albumin 2.6. Urine culture shows ____ species. C. diff antigen toxin negative. IMPRESSION AND PLAN: 1. Status post diabetic ketoacidosis and uncontrolled type 1 requiring diabetes mellitus with severe hyperglycemia. 2. Non-hemolyzed hyperkalemia. 3. Increased anion gap and high anion gap metabolic acidosis and lactic acidosis. 4. Acute renal failure. 5. Hyperprocalcitoninemia. 6. Severe sepsis. 7. Escherichia coli urinary tract infection and funguria. 8. Uncontrolled hypertension. 9. Obesity with elevated body mass index of 41. 10. Leukocytosis with granulocytosis. 11. Increased anion gap metabolic acidosis. 12. Acute kidney injury with underlying chronic kidney disease stage III. 13. Uncontrolled type 1 insulin-requiring diabetes mellitus with hemoglobin A1c of greater than 8. 14. Lactic acidosis. 15. Hyperuricemia. 16. Questionable acute non-ST elevation myocardial infarction with elevated troponin. 17. Hyperprocalcitoninemia. 18. Hypovitaminosis D. 19. Hypercholesterolemia. 20. Escherichia coli urinary tract infection and funguria with proteinuria, glycosuria, hematuria, pyuria, bacteriuria and funguria. 21. Severe microalbuminuria and proteinuria. 22. Gait dysfunction. 23. History of paraplegia and wheelchair bound status. 24. Sinus tachycardia. 25. Diabetic nephropathy. 26. Right atrophic kidney. 27. Deconditioning. 1. Status post diabetic ketoacidosis and uncontrolled type 1 insulin-requiring diabetes mellitus with hyperglycemia. 2. Status post non-hemolyzed hyperkalemia. 3. Acute kidney injury with underlying chronic kidney disease stage IV with massive proteinuria. 4. Uncontrolled hypertension. 5. Back pain syndrome. 6. Morbid obesity with elevated body mass index of 30. 7. Leukocytosis with granulocytosis and thrombocytosis. 8. Normocytic anemia, status post packed red blood cell transfusion. 9. Increased anion gap, and high anion gap metabolic acidosis. 10. Acute kidney injury. 11. Increased anion gap, lactic acidosis. 12. Uncontrolled type 1 insulin-requiring diabetes mellitus with hemoglobin A1c of 8.2. 13. Questionable acute non-ST elevation myocardial infarction with elevated troponin. 14. Hyperuricemia. 15. Protein malnutrition. 16. Hypoalbuminemia. 17. Paraplegia and severe gait dysfunction. 18. Hyperprocalcitoninemia. 19. Hypercholesterolemia with elevated LDL. 20. Hypovitaminosis D. 21. Hyperhomocysteinemia. 22. Proteinuria, glycosuria, microscopic hematuria, pyuria, funguria and massive microalbuminuria. 23. Escherichia coli urinary tract infection and funguria. 24. Status post 2 units of packed red blood cells. 25. Uncontrolled type 1 insulin-requiring diabetes mellitus with hyper and hypoglycemia. 26. Morbid obesity. 27. History of multiple cerebrovascular accidents, history of paraplegia, history of coronary artery disease, history of multiple angioplasties and myocardial infarction. 28. Severe sepsis with Escherichia coli urinary tract infection and funguria and yeast urinary tract infection. 29. Hypertensive cardiovascular disease. 30. Neurogenic bladder with indwelling Lira. 31. History of anxiety, depression. 32. Resolving delirium. 33. History of depression and anxiety. 34. Sinus tachycardia. 35. Atrophic right kidney. 36. Left ventricular ejection fraction of 53%. 37. Concentric left ventricular hypertrophy. 38. sinus tachycardia. 39. Uncontrolled hypertension. 40. Severe gait dysfunction. 1. Status post diabetic ketoacidosis. 2. Status post uncontrolled type 1 insulin-requiring diabetes mellitus with hemoglobin A1c of greater than 8. 3. Lumbar spine back pain. 4. Sepsis with hyperprocalcitoninemia. 5. Leukocytosis with granulocytosis. 6. Anemia with decreasing hemoglobin and hematocrit. 7. Hypertension. 8. Acute renal failure with underlying chronic kidney disease stage IV. 9. Severe proteinuria and severe microalbuminuria. 10. Gait dysfunction. 11. Obesity. 12. Sinus tachycardia. 1. Status post diabetic ketoacidosis and uncontrolled type 1 insulin-requiring diabetes mellitus with hyperglycemia. 2. Status post non-hemolyzed hyperkalemia. 3. Acute kidney injury with underlying chronic kidney disease stage IV with massive proteinuria. 4. Uncontrolled hypertension. 5. Questionable poor compliance with p.o. medications. 6. Sinus tachycardia. 7. Hypokalemia. 8. Questionable and possible non-ST elevation myocardial infarction with elevated troponin. 9. History of myocardial infarction and angioplasty and stent placement. 9. History of cerebral infarct. 10. Increased anion gap and high anion gap metabolic acidosis. 11. Lactic acidosis. 12. Leukocytosis with . 13. Normocytic anemia. 14. Uncontrolled insulin-requiring diabetes mellitus with elevated hemoglobin A1c. 1. Diabetic ketoacidosis with increased anion gap metabolic acidosis and high anion gap metabolic acidosis. 2. Type 1 insulin-dependent diabetes mellitus. 3. Uncontrolled decompensated type 1 insulin-dependent diabetes mellitus with hemoglobin A1c of greater than 8. 4. Diabetic microvascular complication with diabetic retinopathy, diabetic nephropathy, diabetic polyneuropathy and vasculopathy, history of diabetic macrovascular complication of coronary artery disease, peripheral vascular disease and vasculopathy, history of cerebrovascular accident, history of diabetic autonomic neuropathy and neurogenic bladder. 5. Hypertension. 6. Tachycardia. 7. Tachypnea. 8. Morbid obesity with elevated body mass index of 39. 9. Sepsis with hyperprocalcitonemia and lactic acidosis and increased anion gap and high anion gap metabolic acidosis. 10. Leukocytosis with granulocytosis. 11. Normocytic anemia. 12. Severe metabolic acidosis with lactic acidosis. 13. Status post nonhemolyzed hyperkalemia. 14. Acute kidney injury and acute renal failure. 15. Uncontrolled type 1 insulin-requiring diabetes mellitus with diabetic ketoacidosis and hyperglycemia and hemoglobin A1c of 8.2. 16. Hyperuricemia. 17. Questionable non-ST elevation myocardial infarction with elevated troponin. 18. Hypovitaminosis D. 19. Hyperprocalcitonemia. 20. Homocysteinemia. 21. History of thyroidism. 22. Lactic acidosis. 23. Status post hyperkalemia. 24. Hypokalemia at present. 25. Proteinuria, glycosuria, microscopic hematuria, pyuria, funguria. 26. Sinus tachycardia. 27. Severe dehydration. 28. Cerebral cortical atrophy of the brain. 29. Possible diabetic gastroparesis with nausea. 30. Sepsis with hyperprocalcitonemia and lactic acidosis. 31. History of myocardial infarction, history of type 1 diabetes mellitus, history of cerebrovascular accident, history of deep venous thrombosis, history of chronic constipation, history of diabetic micro and macrovascular complications. 32. History of insomnia, depression, anxiety. 33. Chronic kidney disease stage IV. 34. Hypertension. 35. Obesity. 1. Acute diabetic ketoacidosis with uncontrolled diabetes and hyperglycemia. 2. Non-hemolyzed hyperkalemia. 3. Increased anion gap metabolic acidosis. 4. Acute renal failure. 5. Uncontrolled diabetes mellitus with diabetic ketoacidosis, nonhemolyzed hyperkalemia and severe hyperglycemia. 6. Questionable sepsis with leukocytosis and granulocytosis. 7. Normocytic anemia. 8. Thrombocytosis. 9. Sinus tachycardia. 10. History of obesity, history of ____ diabetes mellitus, history of insomnia , history of depression, history of hypertension, history of diabetic neuropathy , history of anxiety disorder, history of neurogenic bladder, history of hypothyroidism, history of chronic back pain syndrome, history of depression, history of cerebrovascular accident, history of hypovitaminosis D, history of hypertension, history of obesity, history of gait dysfunction, history of questionable paraplegia. At present, patient seen by physical therapist. Their recommendations from 07/14 were noted. The patient's case is referred to child welfare social worker for discharge planning. The patient has been cleared by all subspecialties for discharge. DISCHARGE MEDICATIONS: Include as follows: 1. The patient is to resume Xanax 0.5 mg twice a day. 2. Ecotrin 81 mg daily. The patient is discharged on Vantin 100 mg twice a day , vitamin D3 2000 international units daily, clonidine 0.1 mg 3 times a day, Plavix 75 mg daily, vitamin D 50,000 units weekly, Diflucan 100 mg daily for 7 days, Lasix 20 mg daily. 3. Neurontin to be resumed 600 mg 3 times a day. The patient has been started on Levemir 24 units at bedtime and Humalog 10 units with meals by Dr. Lexus Valdovinos. Trandate increased to 400 mg twice a day. Synthroid 175 mcg daily. Zestril 10 mg daily. Zofran 4 mg 3 times a day p.r.n. Protonix 40 mg daily. Polymyxin eyedrops q.i.d. Forte eyedrops q.i.d. Zoloft 50 mg daily, Flomax 0.4 mg daily, Ultram 50 mg 3 times a day p.r.n. and Desyrel 50 mg daily. At this time, patient is cleared for discharge. The patient is off all IV antibiotics and IV medications. The patient is discharged to subacute rehab or acute rehab if accepted or if patient is not accepted to above, patient can be discharged home with the visiting nurse, home health home PT and home health aide. The patient is to follow up with Dr. Wakefield within 1 week. Discharge medications as per ambulatory orders, updated and transmitted to patient's pharmacy listed on the patient's pharmacy section. During this hospitalization, patient was explained about the details of his medical condition on a daily basis including the diagnostic test results and the recommendation by all physicians involved in the care of the patient. It was explained to the patient in layman's language and questions and concerns answered, which he acknowledged and understood. Dictated and electronically signed, not read. Time spent in the entire discharge process, more than 45 minutes. Dictated and electronically signed, not read. Mikey Zhang MD cc: [id number] TT: 07/17/2016 15:51:49 sn DENISE
--- NOTE | 2016-07-17 16:22 | CP.PCM.PN ---
Subjective - Date & Time of Evaluation Date of Evaluation: 07/17/16 Time of Evaluation: 16:21 - Subjective Subjective: picc line removed from left upper extremity. nurse advised for watching bleeding. Objective - Vital Signs/Intake and Output Vital Signs (last 24 hours): Temp Pulse Resp BP Pulse Ox 98.3 F 81 20 160/91 H 96 07/17/16 12:00 07/17/16 12:00 07/17/16 12:00 07/17/16 12:00 07/17/16 05:51 Intake and Output: 07/17/16 07/17/16 06:59 18:59 Intake Total 639 900 Output Total 2150 1300 Balance -1511 -400 - Medications Medications: Current Medications Acetaminophen (Tylenol 325mg Tab) 650 mg PO Q6H PRN PRN Reason: Headache Last Admin: 07/16/16 21:45 Dose: 650 mg Aspirin (Ecotrin) 81 mg PO DAILY [facility] Last Admin: 07/17/16 09:33 Dose: 81 mg Atorvastatin Calcium (Lipitor) 20 mg PO DIN [facility] Cefpodoxime Proxetil (Vantin) 100 mg PO Q12 [facility] PRN Reason: Protocol Stop: 07/22/16 10:01 Last Admin: 07/17/16 09:34 Dose: 100 mg Cholecalciferol (Vitamin D) 2,000 iu PO DAILY [facility] Last Admin: 07/17/16 09:32 Dose: 2,000 iu Clonidine HCl (Catapres) 0.1 mg PO TID [facility] Last Admin: 07/17/16 14:28 Dose: 0.1 mg Clopidogrel Bisulfate (Plavix) 75 mg PO DAILY [facility] Last Admin: 07/17/16 09:34 Dose: 75 mg Clotrimazole (Lotrimin 1%) 0 gm TOP BID [facility] Last Admin: 07/17/16 09:38 Dose: 1 inch Ergocalciferol (Drisdol 50,000 Intl Units Cap) 1 cap PO Q7D [facility] Last Admin: 07/13/16 09:20 Dose: Not Given Fluconazole (Diflucan) 100 mg PO DAILY [facility] PRN Reason: Protocol Last Admin: 07/17/16 09:33 Dose: 100 mg Furosemide (Lasix) 20 mg PO DAILY [facility] Last Admin: 07/17/16 09:33 Dose: 20 mg Gabapentin (Neurontin) 600 mg PO TID [facility] PRN Reason: Protocol Last Admin: 07/17/16 14:28 Dose: 600 mg Hydralazine HCl (Apresoline) 10 mg IVP Q6 PRN PRN Reason: HTN Last Admin: 07/17/16 05:59 Dose: 10 mg Heparin Sodium/Sodium Chloride (Heparin 68890 Units/250ml 1/2 Normal Saline) 25 ,000 units in 250 mls @ 13.172 mls/hr IV .[id number] PARAG; 12 UNITS/KG/HR PRN Reason: Protocol Last Admin: 07/16/16 12:00 Dose: 11.56 units/kg/hr, 12.7 mls/hr Insulin Detemir (Levemir) 24 unit SC HS [facility] Last Admin: 07/16/16 21:19 Dose: Not Given Insulin Human Lispro (Humalog Low) 0 units SC ACHS [facility] PRN Reason: Protocol Last Admin: 07/17/16 12:53 Dose: Not Given Insulin Human Lispro (Humalog) 10 units SC AC [facility] Last Admin: 07/17/16 12:56 Dose: 10 units Labetalol HCl (Trandate) 400 mg PO BID [facility] Last Admin: 07/17/16 09:37 Dose: 400 mg Lactic Acid (Lac-Hydrin 12% Cream (140 G)) 0 ea TOP DAILY [facility] Last Admin: 07/17/16 09:38 Dose: 1 applic Levothyroxine Sodium (Synthroid) 175 mcg PO DAILY [facility] Last Admin: 07/17/16 09:33 Dose: 175 mcg Lisinopril (Zestril) 10 mg PO DAILY [facility] Last Admin: 07/17/16 12:55 Dose: 10 mg Lorazepam (Ativan) 0.5 mg IV Q4H PRN PRN Reason: Anxiety Lorazepam (Ativan) 0.25 mg PO TID [facility] PRN Reason: Protocol Last Admin: 07/17/16 14:28 Dose: 0.25 mg Metoclopramide HCl (Reglan) 10 mg IVP Q6H [facility] Last Admin: 07/17/16 14:28 Dose: 10 mg Ondansetron HCl (Zofran Inj) 4 mg IVP Q4H PRN PRN Reason: Nausea/Vomiting Last Admin: 07/14/16 03:15 Dose: 4 mg Prednisolone Acetate (Pred Forte 1% Opht Susp) 0 ml OS QID [facility] Last Admin: 07/17/16 14:29 Dose: 1 drop Sertraline HCl (Zoloft) 50 mg PO DAILY [facility] Last Admin: 07/17/16 09:34 Dose: 50 mg Tamsulosin HCl (Flomax) 0.4 mg PO DAILY [facility] Last Admin: 07/17/16 09:34 Dose: 0.4 mg Tramadol HCl (Ultram) 50 mg PO TID PRN PRN Reason: Pain, moderate (4-7) Last Admin: 07/17/16 00:02 Dose: 50 mg Zolpidem Tartrate (Ambien) 10 mg PO HS PRN PRN Reason: Insomnia Last Admin: 07/17/16 00:02 Dose: 10 mg - Labs Labs: 07/17/16 06:00 07/17/16 06:00 PT 11.7 Seconds (9.9-11.8) 07/16/16 05:30 INR 1.08 (0.93-1.08) 07/16/16 05:30 APTT 57.5 Seconds (23.7-30.8) H 07/17/16 06:00
[2016-07-17 19:55] LABS: GLYCOMARK(R) 2.5 mcg/mL (7.3-36.6)
== END 2016-07-17 17:50 | DRG 871 ==
LOC: ED 10:32 → ERH 13:00 → CCU 16:49 → 2RNO 07-14 18:11
PROVIDERS: ADMIT Internal Medicine; ATTEND Internal Medicine
PROC: 02HV33Z Insertion of Infusion Device into Superior Vena Cava, Percutaneous Approach (ICD-10-PCS; principal; 2016-07-13)
PROC: B548ZZA Ultrasonography of Superior Vena Cava, Guidance (ICD-10-PCS; 2016-07-13)
PROC: 30233N1 Transfusion of Nonautologous Red Blood Cells into Peripheral Vein, Percutaneous Approach (ICD-10-PCS; 2016-07-15)
DX: A41.51 Sepsis due to Escherichia coli [E. coli] (principal); E10.10 Type 1 diabetes mellitus with ketoacidosis without coma; I21.4 Non-ST elevation (NSTEMI) myocardial infarction; E87.3 Alkalosis; B49 Unspecified mycosis; N17.9 Acute kidney failure, unspecified; N18.4 Chronic kidney disease, stage 4 (severe); I42.8 Other cardiomyopathies; I48.0 Paroxysmal atrial fibrillation; I13.0 Hypertensive heart and chronic kidney disease with heart failure and stage 1 through stage 4 chronic kidney disease, or unspecified chronic kidney disease; E46 Unspecified protein-calorie malnutrition; G82.20 Paraplegia, unspecified; B37.49 Other urogenital candidiasis; N39.0 Urinary tract infection, site not specified; I69.354 Hemiplegia and hemiparesis following cerebral infarction affecting left non-dominant side; Z68.41 Body mass index [BMI] 40.0-44.9, adult; N04.9 Nephrotic syndrome with unspecified morphologic changes; K57.92 Diverticulitis of intestine, part unspecified, without perforation or abscess without bleeding; F13.20 Sedative, hypnotic or anxiolytic dependence, uncomplicated; I50.9 Heart failure, unspecified; D47.3 Essential (hemorrhagic) thrombocythemia; D64.9 Anemia, unspecified; E10.21 Type 1 diabetes mellitus with diabetic nephropathy; E10.42 Type 1 diabetes mellitus with diabetic polyneuropathy; B96.1 Klebsiella pneumoniae [K. pneumoniae] as the cause of diseases classified elsewhere; B35.1 Tinea unguium; E10.43 Type 1 diabetes mellitus with diabetic autonomic (poly)neuropathy; E10.319 Type 1 diabetes mellitus with unspecified diabetic retinopathy without macular edema; E10.22 Type 1 diabetes mellitus with diabetic chronic kidney disease; E10.649 Type 1 diabetes mellitus with hypoglycemia without coma; Z82.49 Family history of ischemic heart disease and other diseases of the circulatory system; Z83.3 Family history of diabetes mellitus; Z86.14 Personal history of Methicillin resistant Staphylococcus aureus infection; Z86.718 Personal history of other venous thrombosis and embolism; Z86.73 Personal history of transient ischemic attack (TIA), and cerebral infarction without residual deficits; Z87.440 Personal history of urinary (tract) infections; Z79.82 Long term (current) use of aspirin; Z79.02 Long term (current) use of antithrombotics/antiplatelets; Z79.4 Long term (current) use of insulin; R65.20 Severe sepsis without septic shock; R32 Unspecified urinary incontinence; R15.9 Full incontinence of feces; E03.9 Hypothyroidism, unspecified; H54.8 Legal blindness, as defined in USA; H35.30 Unspecified macular degeneration; I25.10 Atherosclerotic heart disease of native coronary artery without angina pectoris; I25.2 Old myocardial infarction; E55.9 Vitamin D deficiency, unspecified; E66.01 Morbid (severe) obesity due to excess calories; E78.00 Pure hypercholesterolemia, unspecified; E78.5 Hyperlipidemia, unspecified; E86.0 Dehydration; E87.6 Hypokalemia; F32.89 Other specified depressive episodes; F41.1 Generalized anxiety disorder; G47.00 Insomnia, unspecified; I73.9 Peripheral vascular disease, unspecified; J44.9 Chronic obstructive pulmonary disease, unspecified; K21.9 Gastro-esophageal reflux disease without esophagitis; N31.9 Neuromuscular dysfunction of bladder, unspecified; Z79.899 Other long term (current) drug therapy; Z88.2 Allergy status to sulfonamides; Z98.61 Coronary angioplasty status; Z99.3 Dependence on wheelchair; G89.4 Chronic pain syndrome; M54.9 Dorsalgia, unspecified; K52.9 Noninfective gastroenteritis and colitis, unspecified; K59.00 Constipation, unspecified; Z88.3 Allergy status to other anti-infective agents; Z87.892 Personal history of anaphylaxis; R40.2412 Glasgow coma scale score 13-15, at arrival to emergency department; R00.0 Tachycardia, unspecified; M40.204 Unspecified kyphosis, thoracic region; F10.10 Alcohol abuse, uncomplicated; D86.9 Sarcoidosis, unspecified; R41.0 Disorientation, unspecified; E79.0 Hyperuricemia without signs of inflammatory arthritis and tophaceous disease; G31.9 Degenerative disease of nervous system, unspecified; K31.84 Gastroparesis; N26.1 Atrophy of kidney (terminal); N28.81 Hypertrophy of kidney; M21.372 Foot drop, left foot; M21.371 Foot drop, right foot; B35.3 Tinea pedis

== ENCOUNTER 2016-09-13 22:50 | Emergency (ER) | payer MEDICARE, MEDICAID ==
[2016-09-13 22:50] VITALS: BMI 39.0
[2016-09-13] MEDS ORDERED: TDAP Vaccine 0.5 mL Syr IM ONE (23:35)
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
[2016-09-13] MEDS ORDERED: Morphine 4 mg/ml ISec IM STA (23:41)
--- NOTE | 2016-09-14 00:22 | CT ---
EXAM: CT Head Without Intravenous Contrast CLINICAL HISTORY: 35 years old, male; Pain; Headache; Headache not specified; Additional info: DAWKINS S/P fall TECHNIQUE: Axial computed tomography images of the head/brain without intravenous contrast. This CT exam was performed using one or more of the following dose reduction techniques: automated exposure control, adjustment of the mA and/or kV according to patient size, and/or use of iterative reconstruction technique. COMPARISON: CT - HEAD W/O CONTRAST 07/12/2016 3:07:52 PM FINDINGS: Brain: There is mild prominence of ventricles and sulci, compatible with mild atrophy. There is no evidence of intracranial hemorrhage. No evidence of acute territorial infarction. No significant white matter disease. No edema. Ventricles: See above. Bones/joints: Unremarkable. No acute fracture. Soft tissues: Unremarkable. Sinuses: Unremarkable as visualized. No acute sinusitis. Mastoid air cells: Unremarkable as visualized. No mastoid effusion. IMPRESSION: 1. No evidence for acute intracranial abnormality or displaced calvarial fracture. 2. Additional incidental and/or chronic findings as described.
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
--- NOTE | 2016-09-14 00:31 | CT ---
EXAM: CT Cervical Spine Without Intravenous Contrast CLINICAL HISTORY: 35 years old, male; Pain; Neck pain TECHNIQUE: Axial computed tomography images of the cervical spine without intravenous contrast. This CT exam was performed using one or more of the following dose reduction techniques: automated exposure control, adjustment of the mA and/or kV according to patient size, and/or use of iterative reconstruction technique. Coronal and sagittal reformatted images were created and reviewed. COMPARISON: CT - CERVICAL SPINE W/O CONTRAST 03/13/2015 3:45:09 PM FINDINGS: Vertebrae: There is straightening of the cervical lordosis. There is no significant cervical scoliosis. Discs/spinal canal/neural foramina: No acute findings. No spinal canal stenosis. Soft tissues: The prevertebral soft tissues are normal. Thyroid: The thyroid gland is normal. Lung apices: There is mild biapical scarring. IMPRESSION: 1. Straightening of lordosis. 2. No evidence for acute cervical spine fracture or subluxation. 3. Additional incidental and/or chronic findings as described.
[2016-09-14] MEDS ORDERED: Morphine 2 mg/ml ISec IM STA (03:58)
[2016-09-14 04:58] VITALS: BP 156/77; TEMP 97.6
[2016-09-14 06:08] VITALS: PULSE 79; RESP 16; O2SAT 98
--- NOTE | 2016-09-14 08:33 | RAD ---
HISTORY: left upper back pain COMPARISON: 07/12/2016 FINDINGS: LUNGS: No active pulmonary disease. PLEURA: No significant pleural effusion identified, no pneumothorax apparent. CARDIOVASCULAR: Normal. OSSEOUS STRUCTURES: No significant abnormalities. VISUALIZED UPPER ABDOMEN: Normal. OTHER FINDINGS: None. IMPRESSION: No active disease.
== END 2016-09-14 06:07 | disposition home or self-care (01) ==
LOC: ED 22:50
DX: S09.90XA Unspecified injury of head, initial encounter (principal); V00.141A Fall from scooter (nonmotorized), initial encounter; Y92.89 Other specified places as the place of occurrence of the external cause; R51 Headache; M79.1 Myalgia; Z23 Encounter for immunization
CPT/HCPCS: 70450; 71010; 71250; 72125; 74176; 90471; 90715; 96372; 99285; J1885; J2270

== ENCOUNTER 2016-09-17 18:02 | Inpatient (IN) | payer MEDICARE, MEDICAID ==
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
[2016-09-17 19:01] LABS: ALB/GLOB RATIO 1.1 (1.1-1.8); ALBUMIN 3.4 g/dL (3.0-4.8); CALCIUM 8.6 mg/dL (8.4-10.5)
[2016-09-17 19:31] LABS: URINE BILIRUBIN NEGATIVE (NEGATIVE); URINE BLOOD SMALL (NEGATIVE); URINE GLUCOSE (UA) 100 mg/dL (NEGATIVE); URINE LEUKOCYTE ESTERASE SMALL Leu/uL (NEGATIVE); URINE NITRATE NEGATIVE (NEGATIVE); URINE PROTEIN >=300 mg/dL (<30 mg/dL); URINE UROBILINOGEN 0.2 E.U./dL (<1 E.U./dL)
[2016-09-17 19:36] LABS: URINE APPEARANCE SL CLOUDY (CLEAR); URINE COLOR YELLOW (YELLOW)
[2016-09-17 19:52] LABS: BASO # 0.04 K/mm3 (0.0-2.0); BASO % 0.6 % (0.0-3.0); EOS # 0.2 (0.0-0.7); EOS % 3.3 % (1.5-5.0); GRAN # 4.64 (1.4-6.5); GRAN % 66.1 % (50.0-68.0); HEMOGLOBIN 9.9 gm/dL (14.0-18.0); LYMPH # 1.5 (1.2-3.4); MEAN CELL VOLUME 90.6 fL (80.0-105.0); MEAN PLATELET VOLUME 9.9 fl (7.0-11.0); MONO # 0.6 (0.1-0.6); PLATELET COUNT 397 10^3/uL (120.0-450.0); RBC 3.41 10^6/uL (3.5-6.1); RED CELL DISTRIBUTION WIDTH 14.4 % (11.5-14.5)
[2016-09-17 19:52] LABS: URINE BACTERIA FEW (NEG); URINE RBC 0 - 2 /hpf (0-2)
[2016-09-17] MEDS ORDERED: Labetalol 5 mg/ml Inj 20ML IV STA (20:20)
[2016-09-17] MEDS ORDERED: Oxycodone/Acetaminophen 5/325 mg Tab PO STA (20:20)
[2016-09-17] MEDS ORDERED: Sodium Chloride 0.9% 1,000 ML IV STA (20:31)
[2016-09-17] MEDS ORDERED: Morphine 4 mg/ml ISec IVP STA (21:43)
[2016-09-17 22:11] VITALS: BMI 35.4
[2016-09-18] MEDS ORDERED: Lidocaine 5% Oint(35 gm) TOP PRN (00:04)
[2016-09-18] MEDS: Oxycodone/Acetaminophen 10/325 mg Tab PO SCH ×4 (00:58→19:58)
[2016-09-18] MEDS: Insulin Detemir 100 units/ml Vial (Levemir) SC SCH ×2 (01:03→22:00)
[2016-09-18] MEDS ORDERED: Labetalol 5 mg/ml Inj 20ML IV STA (01:29)
--- NOTE | 2016-09-18 01:38 | CP.PCM.PN ---
Subjective - Date & Time of Evaluation Date of Evaluation: 09/18/16 Time of Evaluation: 01:35 - Subjective Subjective: Patient was seen at bedside for blood pressure 208/102 and patient requested sleeping pill. States that he takes ambien for sleep at home. Denies headache, heaviness in head, lightheadedness, dizziness, chest pain, sob , paraesthesia. States that he took all his blood pressure medications. Patient has received IV labetolol in ER for elevated blood pressure. This 35 year old white male was admitted Has PMH of HTN, DM,Obesity, renal failure, anemia, sinus tachycardia, anxiety , depression, neurogenic bladder, hypervitaminosis D, CVA, chronic back pain syndrome, hypothyroidism. Objective - Vital Signs/Intake and Output Vital Signs (last 24 hours): Temp Pulse Resp BP Pulse Ox 98.3 F 83 16 182/88 H 100 09/17/16 18:18 09/17/16 23:45 09/17/16 22:25 09/17/16 23:45 09/17/16 22:25 - Medications Medications: Current Medications Aspirin (Ecotrin) 81 mg PO DAILY [facility] Clonidine HCl (Catapres) 0.1 mg PO TID [facility] Clopidogrel Bisulfate (Plavix) 75 mg PO DAILY [facility] Docusate Sodium (Colace) 100 mg PO DAILY [facility] Ergocalciferol (Drisdol 50,000 Intl Units Cap) 1 cap PO Q7D [facility] Gabapentin (Neurontin) 600 mg PO TID [facility] Heparin Sodium (Porcine) (Heparin) 5,000 units SC Q8 [facility] Last Admin: 09/18/16 00:57 Dose: 5,000 units Sodium Chloride (Sodium Chloride 0.9%) 1,000 mls @ 100 mls/hr IV .Q10H STA Stop: 09/18/16 06:30 Last Admin: 09/17/16 20:35 Dose: 100 mls/hr Insulin Detemir (Levemir) 26 unit SC HS [facility] Last Admin: 09/18/16 01:03 Dose: 26 unit Insulin Human Lispro (Humalog Med) 0 units SC ACHS [facility] Insulin Human Lispro (Humalog) 7 units SC AC [facility] Labetalol HCl (Trandate) 400 mg PO TID [facility] Levothyroxine Sodium (Synthroid) 175 mcg PO 0600 [facility] Lidocaine (Lidocaine 5%) 0 gm TOP BID PRN PRN Reason: Pain, moderate (4-7) Lorazepam (Ativan) 0.5 mg PO BID [facility] Ondansetron HCl (Zofran Odt) 4 mg PO TID PRN PRN Reason: Nausea/Vomiting Oxycodone/Acetaminophen (Percocet 10/325 Mg Tab) 1 tab PO Q6 [facility] Last Admin: 09/18/16 00:58 Dose: 1 tab Pantoprazole Sodium (Protonix Ec Tab) 40 mg PO 0600,1630 [facility] Sertraline HCl (Zoloft) 50 mg PO DAILY [facility] Tamsulosin HCl (Flomax) 0.4 mg PO DAILY [facility] Tramadol HCl (Ultram) 50 mg PO DIN PRN PRN Reason: Pain, moderate (4-7) - Labs Labs: Last Vital Signs 3 Temp 98.3 F 09/17/16 18:18 Pulse 83 09/17/16 23:45 Resp 16 09/17/16 22:25 BP 182/88 H 09/17/16 23:45 Pulse Ox 100 09/17/16 22:25 - Constitutional Appears: Well, No Acute Distress - Head Exam Head Exam: ATRAUMATIC, NORMAL INSPECTION, NORMOCEPHALIC - Eye Exam Eye Exam: Normal appearance - ENT Exam ENT Exam: Normal External Ear Exam - Neck Exam Neck Exam: Normal Inspection - Respiratory Exam Respiratory Exam: NORMAL BREATHING PATTERN - Cardiovascular Exam Cardiovascular Exam: absent: JVD - GI/Abdominal Exam GI & Abdominal Exam: absent: Distended - Rectal Exam Rectal Exam: Deferred - Exam Additional comments: Deferred. - Extremities Exam Extremities Exam: Normal Inspection - Back Exam Back Exam: NORMAL INSPECTION - Neurological Exam Neurological Exam: Alert, Awake, Oriented x3 - Psychiatric Exam Psychiatric exam: Normal Affect - Skin Skin Exam: Normal Color Assessment and Plan - Assessment and Plan (Free Text) Assessment: Uncontrolled hypertension. DM. Hypertension. Obesity. Anxiety. Depression. Anemia. History renal failure. Hypothyroidism. Plan: Ambien 10 mg PO stat. Clonidine 0.3 mg PO stat. Labetolol 20 mg IV stat. Continue management as per PMD.
[2016-09-18] MEDS: Levothyroxine 175 MCG TAB PO SCH (05:52)
[2016-09-18] MEDS: Pantoprazole 40 mg EC Tab PO SCH ×2 (05:52→18:58)
[2016-09-18 07:02] LABS: BASO # 0.06 K/mm3 (0.0-2.0); BASO % 0.7 % (0.0-3.0); EOS # 0.3 (0.0-0.7); EOS % 3.6 % (1.5-5.0); GRAN # 4.78 (1.4-6.5); GRAN % 58.6 % (50.0-68.0); HEMOGLOBIN 9.2 gm/dL (14.0-18.0); LYMPH # 2.4 (1.2-3.4); LYMPH % 29.2 % (22.0-35.0); MEAN CORPUSCULAR HEMOGLOBIN 28.7 pg (25.0-35.0); MEAN CORPUSCULAR HGB CONC 31.8 g/dl (31.0-37.0); MEAN PLATELET VOLUME 9.8 fl (7.0-11.0); MONO # 0.6 (0.1-0.6); MONO % 7.9 % (1.0-6.0); PLATELET COUNT 354 10^3/uL (120.0-450.0); RBC 3.21 10^6/uL (3.5-6.1); RED CELL DISTRIBUTION WIDTH 14.4 % (11.5-14.5); WHITE BLOOD COUNT 8.2 10^3/ul (4.5-11.0)
[2016-09-18 07:28] LABS: CALCIUM 8.6 mg/dL (8.4-10.5)
[2016-09-18] MEDS: Insulin Lispro (humaLOG) MEDIUM Coverage SC SCH ×4 (08:16→22:33)
[2016-09-18] MEDS: Insulin Lispro 1 UNITS/0.01 ML SC SCH ×3 (08:17→18:20)
[2016-09-18] MEDS ORDERED: Ergocalciferol 50,000 Intl Units Cap PO SCH (10:00)
[2016-09-18] MEDS: POLYETHYLENE GLYCOL 3350 17 GM/Dose PACKET PO SCH (12:05)
[2016-09-18] MEDS ORDERED: Sodium Chloride 0.9% 1,000 ML IV SCH (14:45)
--- NOTE | 2016-09-18 22:41 | CP.PCM.HP ---
History of Present Illness - History of Present Illness History of Present Illness: A 35 yr old male with hx of HTN, DM type 1 with neuropathy, chronic back pain needs help with IDL ,uses wheel chair ,b\l foot drop with pedal edema , neurogenic bladder has have indwelling catheter came to ER as he not able to urinate for 1 day, was found to be having blocked catheter -UO- 700 cc , cr 2.7 from 1.9 from last discharge. notes he drinks lots of water Present on Admission - Present on Admission Any Indicators Present on Admission: No Review of Systems - Constitutional Constitutional: absent: Chills, Fever, Weight Loss - EENT Eyes: absent: Blurred Vision Nose/Mouth/Throat: absent: Nasal Congestion, Dysphagia, Hoarsness, Sore Throat - Cardiovascular Cardiovascular: Leg Edema. absent: Chest Pain, Dyspnea, Rapid Heart Rate - Respiratory Respiratory: absent: Cough, Dyspnea - Gastrointestinal Gastrointestinal: absent: Belching, Bloating, Constipation, Loose Stools, Nausea , Vomiting - Genitourinary Genitourinary: absent: Dysuria, Flank Pain, Pyuria - Musculoskeletal Musculoskeletal: Arthralgias, Back Pain, Limited Range of Motion, Myalgias - Integumentary Integumentary: absent: Non-Healing Lesions, Sores - Neurological Neurological: Paresthesias, Sensory Deficit. absent: Dizziness - Psychiatric Psychiatric: absent: Behavioral Changes, Hallucinations, Irritability - Endocrine Endocrine: Fatigue - Hematologic/Lymphatic Hematologic: absent: Easy Bleeding, Lymphadenopathy Past Patient History - Infectious Disease Hx of Infectious Diseases: None - Tetanus Immunizations Tetanus Immunization: Unknown - Past Medical History & Family History Past Medical History?: Yes - Past Social History Smoking Status: Never Smoked - CARDIAC Hx Hypertension: Yes - PULMONARY Hx Respiratory Disorders: No - NEUROLOGICAL HX Cerebrovascular Accident: Yes (Multiple CVAs) - HEENT Hx HEENT Problems: Yes (wears glasses) Hx Macular Degeneration: Yes - RENAL Hx Chronic Kidney Disease: Yes Hx Pyelonephritis: Yes - ENDOCRINE/METABOLIC Hx Diabetes Mellitus Type 1: Yes (dx 10 yrs old) Hx Diabetes Mellitus Type 2: Yes Hx Hypothyroidism: Yes - HEMATOLOGICAL/ONCOLOGICAL Hx Blood Disorders: No - INTEGUMENTARY Hx Dermatological Problems: No - MUSCULOSKELETAL/RHEUMATOLOGICAL Hx Falls: Yes - GASTROINTESTINAL Hx Gastrointestinal Disorders: Yes (colitis, constipation at times) Hx Gastroesophageal Reflux: Yes - GENITOURINARY/GYNECOLOGICAL Hx Genitourinary Disorders: Yes Hx Hematuria: Yes (323-16) Hx Incontinence: Yes (urine and stool) Hx Urinary Tract Infection: Yes - PSYCHIATRIC Hx Psychophysiologic Disorder: Yes Hx Anxiety: Yes Hx Depression: No Hx Emotional Abuse: No Hx Physical Abuse: No Hx Substance Use: No - SURGICAL HISTORY Hx Surgeries: Yes (recent left eye surgery) - ANESTHESIA Hx Anesthesia: Yes Hx Anesthesia Reactions: No Hx Malignant Hyperthermia: No Meds Allergies/Adverse Reactions: Allergies Allergy/AdvReac Type Severity Reaction Status Date / Time sulfamethoxazole Allergy ANAPHYLAXIS Verified 09/17/16 18:18 [From Bactrim] trimethoprim [From Bactrim] Allergy ANAPHYLAXIS Verified 09/17/16 18:18 Physical Exam - Constitutional Appears: No Acute Distress - Head Exam Head Exam: ATRAUMATIC, NORMAL INSPECTION - Eye Exam Eye Exam: EOMI, Normal appearance, PERRL - ENT Exam ENT Exam: Mucous Membranes Moist - Neck Exam Neck exam: Positive for: Normal Inspection. Negative for: Lymphadenopathy, Tenderness - Respiratory Exam Respiratory Exam: Clear to Auscultation Bilateral, NORMAL BREATHING PATTERN. absent: Accessory Muscle Use, Chest Wall Tenderness, Rales, Wheezes - Cardiovascular Exam Cardiovascular Exam: REGULAR RHYTHM, +S1, +S2 - GI/Abdominal Exam GI & Abdominal Exam: Normal Bowel Sounds, Soft. absent: Tenderness - Exam Exam: absent: Scrotal Swelling - Extremities Exam Extremities exam: Positive for: pedal pulses present. Negative for: pedal edema Additional comments: b\l foot drop - Neurological Exam Neurological exam: Alert, Oriented x3 - Psychiatric Exam Psychiatric exam: Normal Mood - Skin Skin Exam: Intact, Normal Color - Additional Findings Additional findings: has lópez- cloudy urine seen Results - Vital Signs Recent Vital Signs: Last Vital Signs Temp 97.6 F 09/18/16 16:07 Pulse 71 09/18/16 22:30 Resp 20 09/18/16 16:07 BP 209/115 H 09/18/16 22:30 Pulse Ox 97 09/18/16 16:07 - Labs Result Diagrams: 09/19/16 10:00 09/20/16 06:45 Labs: Laboratory Results - last 24 hr 09/17/16 09/18/16 09/18/16 22:57 06:25 06:25 WBC 8.2 RBC 3.21 L Hgb 9.2 L Hct 28.9 L MCV 90.0 MCH 28.7 MCHC 31.8 RDW 14.4 Plt Count 354 MPV 9.8 Gran % 58.6 Lymph % (Auto) 29.2 [place] % (Auto) 7.9 H Eos % (Auto) 3.6 Baso % (Auto) 0.7 Gran # 4.78 Lymph # 2.4 [place] # 0.6 Eos # 0.3 Baso # 0.06 Sodium 138 Potassium 4.9 Chloride 108 H Carbon Dioxide 22 Anion Gap 13 BUN 55 H Creatinine 2.5 H Est GFR ( Amer) 36 Est GFR (Non-Af Amer) 30 POC Glucose (mg/dL) 121 H Random Glucose 207 H Hemoglobin A1c Calcium 8.6 Total Bilirubin 0.4 AST 21 ALT 25 Alkaline Phosphatase 115 Total Protein 5.9 Albumin 3.0 Globulin 2.9 Albumin/Globulin Ratio 1.0 L 09/18/16 06:25 WBC RBC Hgb Hct MCV MCH MCHC RDW Plt Count MPV Gran % Lymph % (Auto) [place] % (Auto) Eos % (Auto) Baso % (Auto) Gran # Lymph # [place] # Eos # Baso # Sodium Potassium Chloride Carbon Dioxide Anion Gap BUN Creatinine Est GFR ( Amer) Est GFR (Non-Af Amer) POC Glucose (mg/dL) Random Glucose Hemoglobin A1c 9.1 H Calcium Total Bilirubin AST ALT Alkaline Phosphatase Total Protein Albumin Globulin Albumin/Globulin Ratio Assessment & Plan (1) Acute on chronic renal insufficiency Assessment and Plan: ivf monitor i\o f\u bmp likely renal \ post renal. held lasix\lisinopril Status: Acute (2) Essential (primary) hypertension Status: Acute Priority: High Comment: labile. catapress 0.1 mg tid. hydralazine will change if BP controlled. held lasix (3) Type 1 diabetes mellitus with hyperglycemia Assessment and Plan: resume meds accuchecks achs RISS hba1c Status: Chronic (4) Hyperkalemia Status: Acute Comment: kayxalte. hold lisinopril. BMP in am (5) Neurogenic bladder Assessment and Plan: new López placed urine c\s Status: Acute (6) Foot drop Status: Acute Decision To Admit - Pt Status Changed To: Hospital Disposition Of: Inpatient Admission - Admit Certification Admit to Inpatient:: After my assessment, the patient will require hospitalization for at least two midnights. This is because of the severity of symptoms shown, intensity of services needed, and/or the medical risk in this patient being treated as an outpatient. - . Bed Request Type: Med/Surg Admitting Physician: Reggie Velasco
[2016-09-19] MEDS ORDERED: Labetalol 5 mg/ml Inj 20ML IV ONE (01:29)
[2016-09-19] MEDS: Oxycodone/Acetaminophen 10/325 mg Tab PO SCH ×4 (01:44→17:51)
--- NOTE | 2016-09-19 01:57 | CP.PCM.PN ---
Subjective - Date & Time of Evaluation Date of Evaluation: 09/19/16 Time of Evaluation: 01:53 - Subjective Subjective: Nurse calls and tell that BP is 209/115 and patient is asymptomatic. I had ordered clonidine 0.2 mg PO. Nurse called me again with BP of 186/100 , HR 72/min. Patient still asymptomatic. Noted the events that transpired in day time and BP had gone down to systolic 95 mmHg after I had given clonidine 0.3 mg and labetolol 20 mg IV earlier in night. I checked patient . He has no complaints now.Denies headache, dizziness, heaviness in head. 35 year old white male was admitted for urinary retention and bladder distension. PMH : HTN, renal failure, anemia, sinus tachycardia, anxiety , depression, DM, obesity, neurogenic bladder, hypervitaminosis D, CVA, chronic back pain syndrome, hypothyroidism. Objective - Vital Signs/Intake and Output Vital Signs (last 24 hours): Temp Pulse Resp BP Pulse Ox 97.6 F 62 20 186/100 H 97 09/18/16 16:07 09/19/16 01:37 09/18/16 16:07 09/19/16 01:37 09/18/16 16:07 Intake and Output: 09/18/16 09/19/16 18:59 06:59 Intake Total 640 Output Total 1500 300 Balance -1500 340 - Medications Medications: Current Medications Aspirin (Ecotrin) 81 mg PO DAILY [facility] Last Admin: 09/18/16 11:11 Dose: 81 mg Clonidine HCl (Catapres) 0.1 mg PO TID [facility] Last Admin: 09/18/16 18:15 Dose: 0.1 mg Clopidogrel Bisulfate (Plavix) 75 mg PO DAILY [facility] Last Admin: 09/18/16 11:11 Dose: 75 mg Docusate Sodium (Colace) 100 mg PO BID [facility] Last Admin: 09/18/16 18:19 Dose: 100 mg Ergocalciferol (Drisdol 50,000 Intl Units Cap) 1 cap PO Q7D [facility] Last Admin: 09/18/16 11:12 Dose: 1 cap Gabapentin (Neurontin) 600 mg PO TID [facility] Last Admin: 09/18/16 19:58 Dose: 600 mg Heparin Sodium (Porcine) (Heparin) 5,000 units SC Q8 [facility] Last Admin: 09/18/16 22:01 Dose: 5,000 units Hydralazine HCl (Apresoline) 50 mg PO Q8H [facility] Insulin Detemir (Levemir) 26 unit SC HS [facility] Last Admin: 09/18/16 22:00 Dose: 26 unit Insulin Human Lispro (Humalog Med) 0 units SC ACHS [facility] Last Admin: 09/18/16 18:20 Dose: Not Given Insulin Human Lispro (Humalog) 7 units SC AC [facility] Last Admin: 09/18/16 18:20 Dose: Not Given Labetalol HCl (Trandate) 400 mg PO TID [facility] Last Admin: 09/18/16 18:35 Dose: 400 mg Levothyroxine Sodium (Synthroid) 175 mcg PO 0600 [facility] Last Admin: 09/18/16 05:52 Dose: 175 mcg Lidocaine (Lidocaine 5%) 0 gm TOP BID PRN PRN Reason: Pain, moderate (4-7) Lorazepam (Ativan) 0.5 mg PO BID [facility] Last Admin: 09/18/16 18:19 Dose: 0.5 mg Ondansetron HCl (Zofran Odt) 4 mg PO TID PRN PRN Reason: Nausea/Vomiting Oxycodone/Acetaminophen (Percocet 10/325 Mg Tab) 1 tab PO Q6 [facility] Last Admin: 09/19/16 01:44 Dose: 1 tab Pantoprazole Sodium (Protonix Ec Tab) 40 mg PO 0600,1630 [facility] Last Admin: 09/18/16 18:58 Dose: 40 mg Polyethylene Glycol (Miralax) 17 gm PO DAILY [facility] Last Admin: 09/18/16 12:05 Dose: 17 gm Sertraline HCl (Zoloft) 50 mg PO DAILY [facility] Last Admin: 09/18/16 11:12 Dose: 50 mg Tamsulosin HCl (Flomax) 0.4 mg PO DAILY [facility] Last Admin: 09/18/16 11:12 Dose: 0.4 mg Tramadol HCl (Ultram) 50 mg PO DIN PRN PRN Reason: Pain, moderate (4-7) Last Admin: 09/18/16 18:21 Dose: 50 mg - Labs Labs: 09/18/16 06:25 09/18/16 06:25 - Constitutional Appears: Well, No Acute Distress - Head Exam Head Exam: ATRAUMATIC, NORMAL INSPECTION, NORMOCEPHALIC - Eye Exam Eye Exam: Normal appearance - ENT Exam ENT Exam: Mucous Membranes Moist - Neck Exam Neck Exam: Normal Inspection - Respiratory Exam Respiratory Exam: NORMAL BREATHING PATTERN - Cardiovascular Exam Cardiovascular Exam: absent: JVD - GI/Abdominal Exam GI & Abdominal Exam: absent: Distended - Rectal Exam Rectal Exam: Deferred - Exam Additional comments: Deferred. - Extremities Exam Extremities Exam: Normal Inspection - Back Exam Back Exam: NORMAL INSPECTION - Neurological Exam Neurological Exam: Alert, Oriented x3 - Psychiatric Exam Psychiatric exam: Normal Affect, Normal Mood - Skin Skin Exam: Normal Color Assessment and Plan - Assessment and Plan (Free Text) Assessment: Elevated blood pressure reading. HTN. DM. Obesity. Hypothyroidism. Urinary retention. Renal failure. Anxiety. Depression. Plan: Clonidine 0.2 mg PO was given. Will give half the dose of labetolol that was given night before, i.e. 10 mg IV . Recheck BP in 15-20 minutes. 02:08 BP is 206/110. Asymptomatic. Rx, Hydralazine 10 mg IV stat. Recheck in 15-20 minutes. 03:06 BP 138/70 mmHg. Rx,:Observation.
[2016-09-19] MEDS: Pantoprazole 40 mg EC Tab PO SCH ×2 (06:41→20:48)
[2016-09-19] MEDS: Levothyroxine 175 MCG TAB PO SCH (06:41)
[2016-09-19] MEDS: Insulin Lispro 1 UNITS/0.01 ML SC SCH ×3 (09:34→16:58)
[2016-09-19] MEDS: Insulin Lispro (humaLOG) MEDIUM Coverage SC SCH ×3 (09:35→16:59)
[2016-09-19] MEDS: POLYETHYLENE GLYCOL 3350 17 GM/Dose PACKET PO SCH (10:09)
[2016-09-19 10:21] LABS: BASO # 0.06 K/mm3 (0.0-2.0); EOS # 0.3 (0.0-0.7); EOS % 4.7 % (1.5-5.0); GRAN % 47.1 % (50.0-68.0); HEMOGLOBIN 9.4 gm/dL (14.0-18.0); LYMPH # 2.3 (1.2-3.4); LYMPH % 39.3 % (22.0-35.0); MEAN CELL VOLUME 89.6 fL (80.0-105.0); MEAN CORPUSCULAR HEMOGLOBIN 28.8 pg (25.0-35.0); MEAN CORPUSCULAR HGB CONC 32.2 g/dl (31.0-37.0); MEAN PLATELET VOLUME 9.6 fl (7.0-11.0); MONO # 0.5 (0.1-0.6); MONO % 7.9 % (1.0-6.0); PLATELET COUNT 364 10^3/uL (120.0-450.0); RBC 3.26 10^6/uL (3.5-6.1); RED CELL DISTRIBUTION WIDTH 13.9 % (11.5-14.5)
[2016-09-19 10:33] LABS: ALB/GLOB RATIO 1.1 (1.1-1.8); CALCIUM 8.8 mg/dL (8.4-10.5); MAGNESIUM 2.2 mg/dL (1.7-2.2)
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
[2016-09-19] MEDS ORDERED: Sod Polystyrene Sulf 15 gm/60 ml Oral Susp PO ONE (21:04)
[2016-09-19] MEDS: Insulin Detemir 100 units/ml Vial (Levemir) SC SCH (21:55)
--- NOTE | 2016-09-19 22:24 | CP.PCM.PN ---
Subjective - Date & Time of Evaluation Date of Evaluation: 09/19/16 Time of Evaluation: 20:00 - Subjective Subjective: k-5.1 , cr-2.5, reviewed old labs. similar admissons in past PT on board, c\o difficulty in moving. c\o back pain renal on board recent CT imaging done BP fluctuating Objective - Vital Signs/Intake and Output Vital Signs (last 24 hours): Temp Pulse Resp BP Pulse Ox 98.4 F 62 18 174/93 H 95 09/19/16 07:30 09/19/16 21:55 09/19/16 07:30 09/19/16 21:55 09/19/16 07:30 Intake and Output: 09/19/16 09/20/16 18:59 06:59 Intake Total 760 660 Output Total 1400 250 Balance -640 410 - Medications Medications: Current Medications Aspirin (Ecotrin) 81 mg PO DAILY [facility] Last Admin: 09/19/16 10:08 Dose: 81 mg Clonidine HCl (Catapres-Tts3 0.3 Mg/24 Hr) 1 patch TD Q7D@1000 [facility] Last Admin: 09/19/16 17:53 Dose: 1 patch Clopidogrel Bisulfate (Plavix) 75 mg PO DAILY [facility] Last Admin: 09/19/16 10:06 Dose: 75 mg Docusate Sodium (Colace) 100 mg PO BID [facility] Last Admin: 09/19/16 17:53 Dose: 100 mg Ergocalciferol (Drisdol 50,000 Intl Units Cap) 1 cap PO Q7D [facility] Last Admin: 09/18/16 11:12 Dose: 1 cap Furosemide (Lasix) 20 mg PO DAILY [facility] Gabapentin (Neurontin) 600 mg PO TID [facility] Last Admin: 09/19/16 20:47 Dose: Not Given Heparin Sodium (Porcine) (Heparin) 5,000 units SC Q8 [facility] Last Admin: 09/19/16 21:55 Dose: 5,000 units Hydralazine HCl (Apresoline) 50 mg PO Q8H [facility] Last Admin: 09/19/16 21:55 Dose: 50 mg Insulin Detemir (Levemir) 26 unit SC HS [facility] Last Admin: 09/19/16 21:55 Dose: 26 unit Insulin Human Lispro (Humalog Med) 0 units SC ACHS [facility] Last Admin: 09/19/16 16:59 Dose: Not Given Insulin Human Lispro (Humalog) 7 units SC AC [facility] Last Admin: 09/19/16 16:58 Dose: Not Given Labetalol HCl (Trandate) 400 mg PO TID [facility] Last Admin: 09/19/16 17:53 Dose: 400 mg Levothyroxine Sodium (Synthroid) 175 mcg PO 0600 [facility] Last Admin: 09/19/16 06:41 Dose: 175 mcg Lidocaine (Lidocaine 5%) 0 gm TOP BID PRN PRN Reason: Pain, moderate (4-7) Lisinopril (Zestril) 10 mg PO DAILY [facility] Lorazepam (Ativan) 0.5 mg PO BID [facility] Last Admin: 09/19/16 17:52 Dose: 0.5 mg Ondansetron HCl (Zofran Odt) 4 mg PO TID PRN PRN Reason: Nausea/Vomiting Oxycodone/Acetaminophen (Percocet 10/325 Mg Tab) 1 tab PO Q6 [facility] Last Admin: 09/19/16 17:51 Dose: 1 tab Pantoprazole Sodium (Protonix Ec Tab) 40 mg PO 0600,1630 [facility] Last Admin: 09/19/16 20:48 Dose: Not Given Polyethylene Glycol (Miralax) 17 gm PO DAILY [facility] Last Admin: 09/19/16 10:09 Dose: 17 gm Sertraline HCl (Zoloft) 50 mg PO DAILY [facility] Last Admin: 09/19/16 10:06 Dose: 50 mg Tamsulosin HCl (Flomax) 0.4 mg PO DAILY [facility] Last Admin: 09/19/16 10:08 Dose: 0.4 mg Tramadol HCl (Ultram) 50 mg PO DIN PRN PRN Reason: Pain, moderate (4-7) Last Admin: 09/18/16 18:21 Dose: 50 mg - Additional Findings Additional findings: - Constitutional Appears: No Acute Distress - Head Exam Head Exam: ATRAUMATIC, NORMAL INSPECTION - Eye Exam Eye Exam: EOMI, Normal appearance, PERRL - ENT Exam ENT Exam: Mucous Membranes Moist - Neck Exam Neck exam: Positive for: Normal Inspection. Negative for: Lymphadenopathy, Tenderness - Respiratory Exam Respiratory Exam: Clear to Auscultation Bilateral, NORMAL BREATHING PATTERN. absent: Accessory Muscle Use, Chest Wall Tenderness, Rales, Wheezes - Cardiovascular Exam Cardiovascular Exam: REGULAR RHYTHM, +S1, +S2 - GI/Abdominal Exam GI & Abdominal Exam: Normal Bowel Sounds, Soft. absent: Tenderness - Exam Exam: absent: Scrotal Swelling - Extremities Exam Extremities exam: Positive for: pedal pulses present. Negative for: pedal edema Additional comments: b\l foot drop - Neurological Exam Neurological exam: Alert, Oriented x3 - Psychiatric Exam Psychiatric exam: Normal Mood - Skin Skin Exam: Intact, Normal Color - Additional Findings Additional findings: has lópez- cloudy urine seen Assessment and Plan (1) Edema Assessment & Plan: gilbert dependant underlying protenuria was on lasix at home PRN Status: Chronic (2) Acute on chronic renal insufficiency Assessment & Plan: agree with renal BP to be better controlled. cr-2.5 , k-5.1 Status: Acute (3) Essential (primary) hypertension Assessment & Plan: continue meds Status: Acute (4) Back pain Assessment & Plan: on pain meds. Status: Chronic
--- NOTE | 2016-09-19 22:44 | CP.PCM.PN ---
Subjective - Date & Time of Evaluation Date of Evaluation: 09/19/16 Time of Evaluation: 22:36 - Subjective Subjective: 01:47 S:Patient was seen earlier. He had requested a sleeping pill. Has no other complaints now. Denies headache, dizziness, blood pressure has been normal. Denies chest pain, sob. Medical record was reviewed O: Last Vital Signs 3 Temp 98.4 F 09/19/16 07:30 Pulse 62 09/19/16 21:55 Resp 18 09/19/16 07:30 BP 174/93 H 09/19/16 21:55 Pulse Ox 95 09/19/16 07:30 Awake, alert , not in distress. LUNGS: Normal breathing pattern. NEURO: Speech normal. A:Adjustment insomnia. P:Ambien 10 mg PO now. Objective - Vital Signs/Intake and Output Vital Signs (last 24 hours): Temp Pulse Resp BP Pulse Ox 98.4 F 62 18 174/93 H 95 09/19/16 07:30 09/19/16 21:55 09/19/16 07:30 09/19/16 21:55 09/19/16 07:30 Intake and Output: 09/19/16 09/20/16 18:59 06:59 Intake Total 760 660 Output Total 1400 250 Balance -640 410 - Medications Medications: Current Medications Aspirin (Ecotrin) 81 mg PO DAILY [facility] Last Admin: 09/19/16 10:08 Dose: 81 mg Clonidine HCl (Catapres-Tts3 0.3 Mg/24 Hr) 1 patch TD Q7D@1000 [facility] Last Admin: 09/19/16 17:53 Dose: 1 patch Clopidogrel Bisulfate (Plavix) 75 mg PO DAILY [facility] Last Admin: 09/19/16 10:06 Dose: 75 mg Docusate Sodium (Colace) 100 mg PO BID [facility] Last Admin: 09/19/16 17:53 Dose: 100 mg Ergocalciferol (Drisdol 50,000 Intl Units Cap) 1 cap PO Q7D [facility] Last Admin: 09/18/16 11:12 Dose: 1 cap Furosemide (Lasix) 20 mg PO DAILY [facility] Gabapentin (Neurontin) 600 mg PO TID [facility] Last Admin: 09/19/16 20:47 Dose: Not Given Heparin Sodium (Porcine) (Heparin) 5,000 units SC Q8 [facility] Last Admin: 09/19/16 21:55 Dose: 5,000 units Hydralazine HCl (Apresoline) 50 mg PO Q8H [facility] Last Admin: 09/19/16 21:55 Dose: 50 mg Insulin Detemir (Levemir) 26 unit SC HS [facility] Last Admin: 09/19/16 21:55 Dose: 26 unit Insulin Human Lispro (Humalog Med) 0 units SC ACHS [facility] Last Admin: 09/19/16 16:59 Dose: Not Given Insulin Human Lispro (Humalog) 7 units SC AC [facility] Last Admin: 09/19/16 16:58 Dose: Not Given Labetalol HCl (Trandate) 400 mg PO TID [facility] Last Admin: 09/19/16 17:53 Dose: 400 mg Levothyroxine Sodium (Synthroid) 175 mcg PO 0600 [facility] Last Admin: 09/19/16 06:41 Dose: 175 mcg Lidocaine (Lidocaine 5%) 0 gm TOP BID PRN PRN Reason: Pain, moderate (4-7) Lisinopril (Zestril) 10 mg PO DAILY [facility] Lorazepam (Ativan) 0.5 mg PO BID [facility] Last Admin: 09/19/16 17:52 Dose: 0.5 mg Ondansetron HCl (Zofran Odt) 4 mg PO TID PRN PRN Reason: Nausea/Vomiting Oxycodone/Acetaminophen (Percocet 10/325 Mg Tab) 1 tab PO Q6 [facility] Last Admin: 09/19/16 17:51 Dose: 1 tab Pantoprazole Sodium (Protonix Ec Tab) 40 mg PO 0600,1630 [facility] Last Admin: 09/19/16 20:48 Dose: Not Given Polyethylene Glycol (Miralax) 17 gm PO DAILY [facility] Last Admin: 09/19/16 10:09 Dose: 17 gm Sertraline HCl (Zoloft) 50 mg PO DAILY [facility] Last Admin: 09/19/16 10:06 Dose: 50 mg Tamsulosin HCl (Flomax) 0.4 mg PO DAILY [facility] Last Admin: 09/19/16 10:08 Dose: 0.4 mg Tramadol HCl (Ultram) 50 mg PO DIN PRN PRN Reason: Pain, moderate (4-7) Last Admin: 09/18/16 18:21 Dose: 50 mg
[2016-09-20] MEDS: Oxycodone/Acetaminophen 10/325 mg Tab PO SCH ×5 (00:04→19:10)
[2016-09-20] MEDS: Insulin Lispro (humaLOG) MEDIUM Coverage SC SCH ×5 (00:05→22:30)
[2016-09-20] MEDS: Levothyroxine 175 MCG TAB PO SCH (05:49)
[2016-09-20] MEDS: Pantoprazole 40 mg EC Tab PO SCH ×2 (05:49→17:34)
--- NOTE | 2016-09-20 06:04 | CP.PCM.PN ---
Subjective - Date & Time of Evaluation Date of Evaluation: 09/20/16 Time of Evaluation: 19:28 - Subjective Subjective: Nurse calls and tells that BP is 202/110. Has little head ache.He was given percocet. Hydralazine 50 mg was givne now. Rx, Will also give clonidine 0.2 mg PO stat. Objective - Vital Signs/Intake and Output Vital Signs (last 24 hours): Temp Pulse Resp BP Pulse Ox 98.4 F 61 18 202/110 H 95 09/19/16 07:30 09/20/16 05:50 09/19/16 07:30 09/20/16 05:50 09/19/16 07:30 Intake and Output: 09/19/16 09/20/16 18:59 06:59 Intake Total 760 900 Output Total 1400 950 Balance -640 -50 - Medications Medications: Current Medications Aspirin (Ecotrin) 81 mg PO DAILY [facility] Last Admin: 09/19/16 10:08 Dose: 81 mg Clonidine HCl (Catapres-Tts3 0.3 Mg/24 Hr) 1 patch TD Q7D@1000 [facility] Last Admin: 09/19/16 17:53 Dose: 1 patch Clopidogrel Bisulfate (Plavix) 75 mg PO DAILY [facility] Last Admin: 09/19/16 10:06 Dose: 75 mg Docusate Sodium (Colace) 100 mg PO BID [facility] Last Admin: 09/19/16 17:53 Dose: 100 mg Ergocalciferol (Drisdol 50,000 Intl Units Cap) 1 cap PO Q7D [facility] Last Admin: 09/18/16 11:12 Dose: 1 cap Furosemide (Lasix) 20 mg PO DAILY [facility] Gabapentin (Neurontin) 600 mg PO TID [facility] Last Admin: 09/19/16 20:47 Dose: Not Given Heparin Sodium (Porcine) (Heparin) 5,000 units SC Q8 [facility] Last Admin: 09/20/16 05:53 Dose: 5,000 units Hydralazine HCl (Apresoline) 50 mg PO Q8H [facility] Last Admin: 09/20/16 05:50 Dose: 50 mg Insulin Detemir (Levemir) 26 unit SC HS [facility] Last Admin: 09/19/16 21:55 Dose: 26 unit Insulin Human Lispro (Humalog Med) 0 units SC ACHS [facility] Last Admin: 09/20/16 00:05 Dose: Not Given Insulin Human Lispro (Humalog) 7 units SC AC [facility] Last Admin: 09/19/16 16:58 Dose: Not Given Labetalol HCl (Trandate) 400 mg PO TID [facility] Last Admin: 09/19/16 17:53 Dose: 400 mg Levothyroxine Sodium (Synthroid) 175 mcg PO 0600 [facility] Last Admin: 09/20/16 05:49 Dose: 175 mcg Lidocaine (Lidocaine 5%) 0 gm TOP BID PRN PRN Reason: Pain, moderate (4-7) Lisinopril (Zestril) 10 mg PO DAILY [facility] Lorazepam (Ativan) 0.5 mg PO BID [facility] Last Admin: 09/19/16 17:52 Dose: 0.5 mg Ondansetron HCl (Zofran Odt) 4 mg PO TID PRN PRN Reason: Nausea/Vomiting Oxycodone/Acetaminophen (Percocet 10/325 Mg Tab) 1 tab PO Q6 [facility] Last Admin: 09/20/16 05:48 Dose: 1 tab Pantoprazole Sodium (Protonix Ec Tab) 40 mg PO 0600,1630 [facility] Last Admin: 09/20/16 05:49 Dose: 40 mg Polyethylene Glycol (Miralax) 17 gm PO DAILY [facility] Last Admin: 09/19/16 10:09 Dose: 17 gm Sertraline HCl (Zoloft) 50 mg PO DAILY [facility] Last Admin: 09/19/16 10:06 Dose: 50 mg Tamsulosin HCl (Flomax) 0.4 mg PO DAILY [facility] Last Admin: 09/19/16 10:08 Dose: 0.4 mg Tramadol HCl (Ultram) 50 mg PO DIN PRN PRN Reason: Pain, moderate (4-7) Last Admin: 09/18/16 18:21 Dose: 50 mg
[2016-09-20 07:14] LABS: CALCIUM 8.6 mg/dL (8.4-10.5)
--- NOTE | 2016-09-20 07:22 | CP.PCM.PN ---
Subjective - Date & Time of Evaluation Date of Evaluation: 09/20/16 - Subjective Subjective: renal follow up note Objective - Vital Signs/Intake and Output Vital Signs (last 24 hours): Temp Pulse Resp BP Pulse Ox 98.4 F 61 18 202/110 H 95 09/19/16 07:30 09/20/16 06:22 09/19/16 07:30 09/20/16 06:22 09/19/16 07:30 Intake and Output: 09/20/16 09/20/16 06:59 18:59 Intake Total 900 Output Total 1450 Balance -550 - Medications Medications: Current Medications Aspirin (Ecotrin) 81 mg PO DAILY [facility] Last Admin: 09/19/16 10:08 Dose: 81 mg Clonidine HCl (Catapres-Tts3 0.3 Mg/24 Hr) 1 patch TD Q7D@1000 [facility] Last Admin: 09/19/16 17:53 Dose: 1 patch Clopidogrel Bisulfate (Plavix) 75 mg PO DAILY [facility] Last Admin: 09/19/16 10:06 Dose: 75 mg Docusate Sodium (Colace) 100 mg PO BID [facility] Last Admin: 09/19/16 17:53 Dose: 100 mg Ergocalciferol (Drisdol 50,000 Intl Units Cap) 1 cap PO Q7D [facility] Last Admin: 09/18/16 11:12 Dose: 1 cap Furosemide (Lasix) 20 mg PO DAILY [facility] Gabapentin (Neurontin) 600 mg PO TID [facility] Last Admin: 09/19/16 20:47 Dose: Not Given Heparin Sodium (Porcine) (Heparin) 5,000 units SC Q8 [facility] Last Admin: 09/20/16 05:53 Dose: 5,000 units Hydralazine HCl (Apresoline) 50 mg PO Q8H [facility] Last Admin: 09/20/16 05:50 Dose: 50 mg Insulin Detemir (Levemir) 26 unit SC HS [facility] Last Admin: 09/19/16 21:55 Dose: 26 unit Insulin Human Lispro (Humalog Med) 0 units SC ACHS [facility] Last Admin: 09/20/16 00:05 Dose: Not Given Insulin Human Lispro (Humalog) 7 units SC AC [facility] Last Admin: 09/19/16 16:58 Dose: Not Given Labetalol HCl (Trandate) 400 mg PO TID [facility] Last Admin: 09/19/16 17:53 Dose: 400 mg Levothyroxine Sodium (Synthroid) 175 mcg PO 0600 [facility] Last Admin: 09/20/16 05:49 Dose: 175 mcg Lidocaine (Lidocaine 5%) 0 gm TOP BID PRN PRN Reason: Pain, moderate (4-7) Lisinopril (Zestril) 10 mg PO DAILY [facility] Lorazepam (Ativan) 0.5 mg PO BID [facility] Last Admin: 09/19/16 17:52 Dose: 0.5 mg Ondansetron HCl (Zofran Odt) 4 mg PO TID PRN PRN Reason: Nausea/Vomiting Oxycodone/Acetaminophen (Percocet 10/325 Mg Tab) 1 tab PO Q6 [facility] Last Admin: 09/20/16 05:48 Dose: 1 tab Pantoprazole Sodium (Protonix Ec Tab) 40 mg PO 0600,1630 [facility] Last Admin: 09/20/16 05:49 Dose: 40 mg Polyethylene Glycol (Miralax) 17 gm PO DAILY [facility] Last Admin: 09/19/16 10:09 Dose: 17 gm Sertraline HCl (Zoloft) 50 mg PO DAILY [facility] Last Admin: 09/19/16 10:06 Dose: 50 mg Tamsulosin HCl (Flomax) 0.4 mg PO DAILY [facility] Last Admin: 09/19/16 10:08 Dose: 0.4 mg Tramadol HCl (Ultram) 50 mg PO DIN PRN PRN Reason: Pain, moderate (4-7) Last Admin: 09/18/16 18:21 Dose: 50 mg
[2016-09-20] MEDS: Insulin Lispro 1 UNITS/0.01 ML SC SCH ×3 (07:55→16:36)
[2016-09-20] MEDS: POLYETHYLENE GLYCOL 3350 17 GM/Dose PACKET PO SCH (09:05)
[2016-09-20] MEDS ORDERED: Morphine 2 mg/ml ISec IVP ONE (16:52)
[2016-09-20 19:36] LABS: URINE BILIRUBIN NEGATIVE (NEGATIVE); URINE BLOOD TRACE-INTACT (NEGATIVE); URINE GLUCOSE (UA) 100 mg/dL (NEGATIVE); URINE LEUKOCYTE ESTERASE SMALL Leu/uL (NEGATIVE); URINE NITRATE NEGATIVE (NEGATIVE); URINE PROTEIN 100 mg/dL (<30 mg/dL); URINE UROBILINOGEN 0.2 E.U./dL (<1 E.U./dL)
[2016-09-20 19:38] LABS: URINE APPEARANCE SL CLOUDY (CLEAR); URINE COLOR YELLOW (YELLOW)
[2016-09-20 20:10] LABS: URINE BACTERIA MANY (NEG); URINE WBC 20 - 25 /hpf (0-6)
[2016-09-20] MEDS: Insulin Detemir 100 units/ml Vial (Levemir) SC SCH (22:20)
[2016-09-21] MEDS: Oxycodone/Acetaminophen 10/325 mg Tab PO SCH ×6 (00:04→23:31)
--- NOTE | 2016-09-21 00:22 | CP.PCM.PN ---
Subjective - Date & Time of Evaluation Date of Evaluation: 09/20/16 Time of Evaluation: 09:00 - Subjective Subjective: BP fluctuating d\c ivf cr stable positive protenuria reviewed consult notes urine c\s-positive for e.feacalis CR-2.4 Objective - Vital Signs/Intake and Output Vital Signs (last 24 hours): Temp Pulse Resp BP Pulse Ox 97.5 F L 69 20 125/67 97 09/20/16 07:30 09/20/16 22:21 09/20/16 07:30 09/20/16 22:21 09/20/16 07:30 Intake and Output: 09/20/16 09/21/16 18:59 06:59 Intake Total 640 780 Output Total 1000 Balance 640 -220 - Medications Medications: Current Medications Aspirin (Ecotrin) 81 mg PO DAILY [facility] Last Admin: 09/20/16 09:04 Dose: 81 mg Clonidine HCl (Catapres-Tts3 0.3 Mg/24 Hr) 1 patch TD Q7D@1000 [facility] Last Admin: 09/19/16 17:53 Dose: 1 patch Clopidogrel Bisulfate (Plavix) 75 mg PO DAILY [facility] Last Admin: 09/20/16 09:04 Dose: 75 mg Docusate Sodium (Colace) 100 mg PO BID [facility] Last Admin: 09/20/16 17:35 Dose: 100 mg Ergocalciferol (Drisdol 50,000 Intl Units Cap) 1 cap PO Q7D [facility] Last Admin: 09/18/16 11:12 Dose: 1 cap Furosemide (Lasix) 20 mg PO DAILY [facility] Last Admin: 09/20/16 09:11 Dose: 20 mg Gabapentin (Neurontin) 600 mg PO TID [facility] Last Admin: 09/20/16 17:34 Dose: 600 mg Heparin Sodium (Porcine) (Heparin) 5,000 units SC Q8 [facility] Last Admin: 09/20/16 22:19 Dose: 5,000 units Hydralazine HCl (Apresoline) 50 mg PO Q8H [facility] Last Admin: 09/20/16 22:21 Dose: 50 mg Insulin Detemir (Levemir) 26 unit SC HS [facility] Last Admin: 09/20/16 22:20 Dose: 26 unit Insulin Human Lispro (Humalog Med) 0 units SC ACHS [facility] Last Admin: 09/20/16 22:30 Dose: Not Given Insulin Human Lispro (Humalog) 7 units SC AC [facility] Last Admin: 09/20/16 16:36 Dose: Not Given Labetalol HCl (Trandate) 400 mg PO TID [facility] Last Admin: 09/20/16 17:35 Dose: 400 mg Levothyroxine Sodium (Synthroid) 175 mcg PO 0600 [facility] Last Admin: 09/20/16 05:49 Dose: 175 mcg Lidocaine (Lidocaine 5%) 0 gm TOP BID PRN PRN Reason: Pain, moderate (4-7) Lisinopril (Zestril) 10 mg PO DAILY [facility] Last Admin: 09/20/16 09:11 Dose: 10 mg Lorazepam (Ativan) 0.5 mg PO BID [facility] Last Admin: 09/20/16 18:04 Dose: 0.5 mg Nitrofurantoin Macrocrystals (Macrobid) 100 mg PO Q12 [facility] Ondansetron HCl (Zofran Odt) 4 mg PO TID PRN PRN Reason: Nausea/Vomiting Oxycodone/Acetaminophen (Percocet 10/325 Mg Tab) 1 tab PO Q6 [facility] Last Admin: 09/21/16 00:05 Dose: Not Given Pantoprazole Sodium (Protonix Ec Tab) 40 mg PO 0600,1630 [facility] Last Admin: 09/20/16 17:34 Dose: 40 mg Polyethylene Glycol (Miralax) 17 gm PO DAILY [facility] Last Admin: 09/20/16 09:05 Dose: 17 gm Sertraline HCl (Zoloft) 50 mg PO DAILY [facility] Last Admin: 09/20/16 09:04 Dose: 50 mg Tamsulosin HCl (Flomax) 0.4 mg PO DAILY [facility] Last Admin: 09/20/16 09:04 Dose: 0.4 mg Tramadol HCl (Ultram) 50 mg PO DIN PRN PRN Reason: Pain, moderate (4-7) Last Admin: 09/18/16 18:21 Dose: 50 mg Zolpidem Tartrate (Ambien) 5 mg PO HS PRN; Protocol PRN Reason: Insomnia Last Admin: 09/20/16 22:29 Dose: 5 mg - Labs Labs: 09/20/16 06:45 - Additional Findings Additional findings: - Constitutional Appears: No Acute Distress - Head Exam Head Exam: ATRAUMATIC, NORMAL INSPECTION - Eye Exam Eye Exam: EOMI, Normal appearance, PERRL - ENT Exam ENT Exam: Mucous Membranes Moist - Neck Exam Neck exam: Positive for: Normal Inspection. Negative for: Lymphadenopathy, Tenderness - Respiratory Exam Respiratory Exam: Clear to Auscultation Bilateral, NORMAL BREATHING PATTERN. absent: Accessory Muscle Use, Chest Wall Tenderness, Rales, Wheezes - Cardiovascular Exam Cardiovascular Exam: REGULAR RHYTHM, +S1, +S2 - GI/Abdominal Exam GI & Abdominal Exam: Normal Bowel Sounds, Soft. absent: Tenderness - Exam Exam: absent: Scrotal Swelling - Extremities Exam Extremities exam: Positive for: pedal pulses present. Negative for: pedal edema Additional comments: b\l foot drop - Neurological Exam Neurological exam: Alert, Oriented x3 - Psychiatric Exam Psychiatric exam: Normal Mood - Skin Skin Exam: Intact, Normal Color - Additional Findings Additional findings: has lópez- cloudy urine seen Assessment and Plan (1) Urinary tract infection associated with catheterization of urinary tract Assessment & Plan: macrobid encourage IVF. Status: Acute (2) Edema Status: Chronic (3) Acute on chronic renal insufficiency Status: Acute (4) Essential (primary) hypertension Status: Acute (5) Back pain Status: Chronic - Assessment and Plan (Free Text) Plan: 1. CONTINUE ALL MEDS MONIOR URINE OUT PUT LABS TO FOLLOW OPTIMISATION OF bp. K- WNL.
[2016-09-21] MEDS: Pantoprazole 40 mg EC Tab PO SCH ×2 (08:37→16:19)
[2016-09-21] MEDS: Levothyroxine 175 MCG TAB PO SCH (08:38)
[2016-09-21] MEDS: Insulin Lispro (humaLOG) MEDIUM Coverage SC SCH ×4 (10:12→22:08)
[2016-09-21] MEDS: Insulin Lispro 1 UNITS/0.01 ML SC SCH ×3 (10:13→16:22)
[2016-09-21] MEDS: POLYETHYLENE GLYCOL 3350 17 GM/Dose PACKET PO SCH (10:14)
[2016-09-21] MEDS: Amoxicillin-Clav 875-125 mg Tab PO SCH ×2 (10:17→22:06)
--- NOTE | 2016-09-21 13:15 | CP.PCM.PN ---
Subjective - Date & Time of Evaluation Date of Evaluation: 09/21/16 Time of Evaluation: 13:14 - Subjective Subjective: no events overnight lópez + Objective - Vital Signs/Intake and Output Vital Signs (last 24 hours): Temp Pulse Resp BP Pulse Ox 97.5 F L 61 20 131/78 97 09/20/16 07:30 09/21/16 08:37 09/20/16 07:30 09/21/16 10:14 09/20/16 07:30 Intake and Output: 09/21/16 09/21/16 06:59 18:59 Intake Total 1380 Output Total 2000 Balance -620 - Medications Medications: Current Medications Amoxicillin/Clavulanate Potassium (Augmentin 875 Mg-125 Mg Tab) 1 tab PO Q12 [facility] PRN Reason: Protocol Last Admin: 09/21/16 10:17 Dose: 1 tab Aspirin (Ecotrin) 81 mg PO DAILY [facility] Last Admin: 09/21/16 10:16 Dose: 81 mg Clonidine HCl (Catapres-Tts3 0.3 Mg/24 Hr) 1 patch TD Q7D@1000 [facility] Last Admin: 09/19/16 17:53 Dose: 1 patch Clopidogrel Bisulfate (Plavix) 75 mg PO DAILY [facility] Last Admin: 09/21/16 10:15 Dose: 75 mg Docusate Sodium (Colace) 100 mg PO BID [facility] Last Admin: 09/21/16 10:15 Dose: 100 mg Ergocalciferol (Drisdol 50,000 Intl Units Cap) 1 cap PO Q7D [facility] Last Admin: 09/18/16 11:12 Dose: 1 cap Furosemide (Lasix) 20 mg PO DAILY [facility] Last Admin: 09/21/16 10:14 Dose: 20 mg Gabapentin (Neurontin) 600 mg PO TID [facility] Last Admin: 09/21/16 10:17 Dose: 600 mg Heparin Sodium (Porcine) (Heparin) 5,000 units SC Q8 [facility] Last Admin: 09/21/16 08:37 Dose: 5,000 units Hydralazine HCl (Apresoline) 50 mg PO Q8H [facility] Last Admin: 09/21/16 08:37 Dose: 50 mg Insulin Detemir (Levemir) 26 unit SC HS [facility] Last Admin: 09/20/16 22:20 Dose: 26 unit Insulin Human Lispro (Humalog Med) 0 units SC ACHS [facility] Last Admin: 09/21/16 10:12 Dose: 1 units Insulin Human Lispro (Humalog) 7 units SC AC [facility] Last Admin: 09/21/16 10:13 Dose: 7 units Labetalol HCl (Trandate) 400 mg PO TID [facility] Last Admin: 09/21/16 10:17 Dose: 400 mg Levothyroxine Sodium (Synthroid) 175 mcg PO 0600 [facility] Last Admin: 09/21/16 08:38 Dose: 175 mcg Lidocaine (Lidocaine 5%) 0 gm TOP BID PRN PRN Reason: Pain, moderate (4-7) Lisinopril (Zestril) 10 mg PO DAILY [facility] Last Admin: 09/21/16 10:16 Dose: 10 mg Lorazepam (Ativan) 0.5 mg PO BID [facility] Last Admin: 09/21/16 10:14 Dose: 0.5 mg Ondansetron HCl (Zofran Odt) 4 mg PO TID PRN PRN Reason: Nausea/Vomiting Oxycodone/Acetaminophen (Percocet 10/325 Mg Tab) 1 tab PO Q6 [facility] Last Admin: 09/21/16 12:40 Dose: 1 tab Pantoprazole Sodium (Protonix Ec Tab) 40 mg PO 0600,1630 [facility] Last Admin: 09/21/16 08:37 Dose: 40 mg Polyethylene Glycol (Miralax) 17 gm PO DAILY [facility] Last Admin: 09/21/16 10:14 Dose: 17 gm Sertraline HCl (Zoloft) 50 mg PO DAILY [facility] Last Admin: 09/21/16 10:15 Dose: 50 mg Tamsulosin HCl (Flomax) 0.4 mg PO DAILY [facility] Last Admin: 09/21/16 10:15 Dose: 0.4 mg Tramadol HCl (Ultram) 50 mg PO DIN PRN PRN Reason: Pain, moderate (4-7) Last Admin: 09/18/16 18:21 Dose: 50 mg Zolpidem Tartrate (Ambien) 5 mg PO HS PRN; Protocol PRN Reason: Insomnia Last Admin: 09/20/16 22:29 Dose: 5 mg - Labs Labs: 09/20/16 06:45 - Constitutional Appears: Well, Non-toxic, No Acute Distress - Head Exam Head Exam: NORMAL INSPECTION - Eye Exam Eye Exam: Normal appearance - ENT Exam ENT Exam: Mucous Membranes Moist - Neck Exam Neck Exam: Normal Inspection - Respiratory Exam Respiratory Exam: NORMAL BREATHING PATTERN - Cardiovascular Exam Cardiovascular Exam: +S1, +S2 - GI/Abdominal Exam GI & Abdominal Exam: Soft - Extremities Exam Extremities Exam: Normal Inspection - Neurological Exam Neurological Exam: Alert, Awake, Oriented x3 - Psychiatric Exam Psychiatric exam: Normal Affect - Skin Skin Exam: Dry Assessment and Plan - Assessment and Plan (Free Text) Plan: chester/ckd stage 3/dm nephropathy/htn/obstructive uropathy cr stable, non oliguric monitor I&Os htn: better today, continue current meds anemia: check iron profile, i have ordered it lópez + dm per primary team hyperkalemia: improved, low K diet, low phos diet check pth, i have ordered it
[2016-09-21] MEDS: Morphine 2 mg/ml ISec IVP PRN (16:17)
[2016-09-21 17:15] VITALS: RESP 18; O2SAT 94
[2016-09-21] MEDS: Insulin Detemir 100 units/ml Vial (Levemir) SC SCH (22:08)
--- NOTE | 2016-09-21 22:56 | CP.PCM.PN ---
Subjective - Date & Time of Evaluation Date of Evaluation: 09/21/16 Time of Evaluation: 16:00 - Subjective Subjective: NO NEW BLOOD WORK LOOKS comfortable .sleeping awaiting rehab placement. Objective - Vital Signs/Intake and Output Vital Signs (last 24 hours): Temp Pulse Resp BP Pulse Ox 97.3 F L 63 18 115/75 94 L 09/21/16 17:14 09/21/16 22:06 09/21/16 17:14 09/21/16 22:06 09/21/16 17:14 Intake and Output: 09/21/16 09/22/16 18:59 06:59 Intake Total 540 880 Output Total 1200 200 Balance -660 680 - Medications Medications: Current Medications Amoxicillin/Clavulanate Potassium (Augmentin 875 Mg-125 Mg Tab) 1 tab PO Q12 [facility] PRN Reason: Protocol Last Admin: 09/21/16 22:06 Dose: 1 tab Aspirin (Ecotrin) 81 mg PO DAILY [facility] Last Admin: 09/21/16 10:16 Dose: 81 mg Clonidine HCl (Catapres-Tts3 0.3 Mg/24 Hr) 1 patch TD Q7D@1000 [facility] Last Admin: 09/19/16 17:53 Dose: 1 patch Clopidogrel Bisulfate (Plavix) 75 mg PO DAILY [facility] Last Admin: 09/21/16 10:15 Dose: 75 mg Docusate Sodium (Colace) 100 mg PO BID [facility] Last Admin: 09/21/16 18:14 Dose: 100 mg Ergocalciferol (Drisdol 50,000 Intl Units Cap) 1 cap PO Q7D [facility] Last Admin: 09/18/16 11:12 Dose: 1 cap Furosemide (Lasix) 20 mg PO DAILY [facility] Last Admin: 09/21/16 10:14 Dose: 20 mg Gabapentin (Neurontin) 600 mg PO TID [facility] Last Admin: 09/21/16 18:14 Dose: 600 mg Heparin Sodium (Porcine) (Heparin) 5,000 units SC Q8 [facility] Last Admin: 09/21/16 22:07 Dose: 5,000 units Hydralazine HCl (Apresoline) 50 mg PO Q8H [facility] Last Admin: 09/21/16 22:06 Dose: 50 mg Insulin Detemir (Levemir) 26 unit SC HS [facility] Last Admin: 09/21/16 22:08 Dose: 26 unit Insulin Human Lispro (Humalog Med) 0 units SC ACHS [facility] Last Admin: 09/21/16 22:08 Dose: Not Given Insulin Human Lispro (Humalog) 7 units SC AC [facility] Last Admin: 09/21/16 16:22 Dose: Not Given Labetalol HCl (Trandate) 400 mg PO TID [facility] Last Admin: 09/21/16 18:14 Dose: 400 mg Lactulose (Enulose) 30 gm PO Q6 PRN PRN Reason: Constipation Levothyroxine Sodium (Synthroid) 175 mcg PO 0600 [facility] Last Admin: 09/21/16 08:38 Dose: 175 mcg Lidocaine (Lidocaine 5%) 0 gm TOP BID PRN PRN Reason: Pain, moderate (4-7) Lisinopril (Zestril) 10 mg PO DAILY [facility] Last Admin: 09/21/16 10:16 Dose: 10 mg Lorazepam (Ativan) 0.5 mg PO BID [facility] Last Admin: 09/21/16 18:14 Dose: 0.5 mg Morphine Sulfate (Morphine) 2 mg IVP Q8 PRN PRN Reason: Pain, severe (8-10) Last Admin: 09/21/16 16:17 Dose: 2 mg Ondansetron HCl (Zofran Odt) 4 mg PO TID PRN PRN Reason: Nausea/Vomiting Oxycodone/Acetaminophen (Percocet 10/325 Mg Tab) 1 tab PO Q6 [facility] Last Admin: 09/21/16 18:14 Dose: 1 tab Pantoprazole Sodium (Protonix Ec Tab) 40 mg PO 0600,1630 [facility] Last Admin: 09/21/16 16:19 Dose: 40 mg Polyethylene Glycol (Miralax) 17 gm PO DAILY [facility] Last Admin: 09/21/16 10:14 Dose: 17 gm Sertraline HCl (Zoloft) 50 mg PO DAILY [facility] Last Admin: 09/21/16 10:15 Dose: 50 mg Tamsulosin HCl (Flomax) 0.4 mg PO DAILY [facility] Last Admin: 09/21/16 10:15 Dose: 0.4 mg Tramadol HCl (Ultram) 50 mg PO DIN PRN PRN Reason: Pain, moderate (4-7) Last Admin: 09/18/16 18:21 Dose: 50 mg Zolpidem Tartrate (Ambien) 5 mg PO HS PRN; Protocol PRN Reason: Insomnia Last Admin: 09/21/16 22:05 Dose: 5 mg - Labs Labs: 09/20/16 06:45 - Additional Findings Additional findings: - Constitutional Appears: No Acute Distress - Head Exam Head Exam: ATRAUMATIC, NORMAL INSPECTION - Eye Exam Eye Exam: EOMI, Normal appearance, PERRL - ENT Exam ENT Exam: Mucous Membranes Moist - Neck Exam Neck exam: Positive for: Normal Inspection. Negative for: Lymphadenopathy, Tenderness - Respiratory Exam Respiratory Exam: Clear to Auscultation Bilateral, NORMAL BREATHING PATTERN. absent: Accessory Muscle Use, Chest Wall Tenderness, Rales, Wheezes - Cardiovascular Exam Cardiovascular Exam: REGULAR RHYTHM, +S1, +S2 - GI/Abdominal Exam GI & Abdominal Exam: Normal Bowel Sounds, Soft. absent: Tenderness - Exam Exam: absent: Scrotal Swelling - Extremities Exam Extremities exam: Positive for: pedal pulses present. Negative for: pedal edema Additional comments: b\l foot drop - Neurological Exam Neurological exam: Alert, Oriented x3 - Psychiatric Exam Psychiatric exam: Normal Mood - Skin Skin Exam: Intact, Normal Color - Additional Findings Additional findings: has lópez- Assessment and Plan (1) Edema Status: Chronic (2) Acute on chronic renal insufficiency Status: Acute (3) Essential (primary) hypertension Status: Acute (4) Back pain Status: Chronic (5) Urinary tract infection associated with catheterization of urinary tract Assessment & Plan: on augmentin for 5 days Status: Acute - Assessment and Plan (Free Text) Plan: labs in am possible d\c when bed is available continue all meds. CKD STAGE 3 WITH PROTENURIA
[2016-09-22] MEDS: Morphine 2 mg/ml ISec IVP PRN ×2 (00:18→08:31)
[2016-09-22 06:09] VITALS: BP 110/66; PULSE 60
[2016-09-22] MEDS: Levothyroxine 175 MCG TAB PO SCH (06:09)
[2016-09-22] MEDS: Pantoprazole 40 mg EC Tab PO SCH (06:09)
[2016-09-22 07:22] LABS: % IRON SATURATION 54 % (20-55); IRON 131 ug/dL (45-180); TOTAL IRON BINDING CAPACITY 243 ug/dL (261-462)
[2016-09-22 08:32] VITALS: TEMP 97.5
[2016-09-22] MEDS: Insulin Lispro 1 UNITS/0.01 ML SC SCH (08:32)
[2016-09-22] MEDS: Insulin Lispro (humaLOG) MEDIUM Coverage SC SCH (08:36)
[2016-09-22 08:57] LABS: BASO # 0.05 K/mm3 (0.0-2.0); BASO % 0.9 % (0.0-3.0); EOS # 0.2 (0.0-0.7); EOS % 3.5 % (1.5-5.0); GRAN # 3.08 (1.4-6.5); GRAN % 54.2 % (50.0-68.0); HEMOGLOBIN 9.2 gm/dL (14.0-18.0); LYMPH # 1.9 (1.2-3.4); MEAN CELL VOLUME 90.3 fL (80.0-105.0); MEAN CORPUSCULAR HEMOGLOBIN 28.7 pg (25.0-35.0); MEAN CORPUSCULAR HGB CONC 31.7 g/dl (31.0-37.0); MEAN PLATELET VOLUME 9.9 fl (7.0-11.0); MONO # 0.5 (0.1-0.6); MONO % 8.4 % (1.0-6.0); PLATELET COUNT 359 10^3/uL (120.0-450.0); RBC 3.21 10^6/uL (3.5-6.1); RED CELL DISTRIBUTION WIDTH 14.1 % (11.5-14.5); WHITE BLOOD COUNT 5.7 10^3/ul (4.5-11.0)
[2016-09-22 09:04] LABS: ALB/GLOB RATIO 1.1 (1.1-1.8); ALBUMIN 3.1 g/dL (3.0-4.8); CALCIUM 8.3 mg/dL (8.4-10.5); MAGNESIUM 2.2 mg/dL (1.7-2.2)
[2016-09-22] MEDS ORDERED: Darbepoetin Alfa 40 mcg/ml Inj IVP ONE (09:45)
--- NOTE | 2016-09-22 09:50 | CP.PCM.PN ---
Subjective - Date & Time of Evaluation Date of Evaluation: 09/22/16 Time of Evaluation: 09:44 - Subjective Subjective: seen and examined no complaints Objective - Vital Signs/Intake and Output Vital Signs (last 24 hours): Temp Pulse Resp BP Pulse Ox 97.5 F L 60 18 110/66 94 L 09/22/16 07:30 09/22/16 07:30 09/22/16 07:30 09/22/16 07:30 09/22/16 07:30 Intake and Output: 09/22/16 09/22/16 06:59 18:59 Intake Total 1600 260 Output Total 700 Balance 900 260 - Medications Medications: Current Medications Amoxicillin/Clavulanate Potassium (Augmentin 875 Mg-125 Mg Tab) 1 tab PO Q12 [facility] PRN Reason: Protocol Last Admin: 09/21/16 22:06 Dose: 1 tab Aspirin (Ecotrin) 81 mg PO DAILY [facility] Last Admin: 09/21/16 10:16 Dose: 81 mg Clonidine HCl (Catapres-Tts3 0.3 Mg/24 Hr) 1 patch TD Q7D@1000 [facility] Last Admin: 09/19/16 17:53 Dose: 1 patch Clopidogrel Bisulfate (Plavix) 75 mg PO DAILY [facility] Last Admin: 09/21/16 10:15 Dose: 75 mg Docusate Sodium (Colace) 100 mg PO BID [facility] Last Admin: 09/21/16 18:14 Dose: 100 mg Ergocalciferol (Drisdol 50,000 Intl Units Cap) 1 cap PO Q7D [facility] Last Admin: 09/18/16 11:12 Dose: 1 cap Furosemide (Lasix) 20 mg PO DAILY [facility] Last Admin: 09/21/16 10:14 Dose: 20 mg Gabapentin (Neurontin) 600 mg PO TID [facility] Last Admin: 09/21/16 18:14 Dose: 600 mg Heparin Sodium (Porcine) (Heparin) 5,000 units SC Q8 [facility] Last Admin: 09/22/16 06:09 Dose: 5,000 units Hydralazine HCl (Apresoline) 50 mg PO Q8H [facility] Last Admin: 09/22/16 06:08 Dose: Not Given Insulin Detemir (Levemir) 26 unit SC HS [facility] Last Admin: 09/21/16 22:08 Dose: 26 unit Insulin Human Lispro (Humalog Med) 0 units SC ACHS [facility] Last Admin: 09/22/16 08:36 Dose: Not Given Insulin Human Lispro (Humalog) 7 units SC AC [facility] Last Admin: 09/22/16 08:32 Dose: 7 units Labetalol HCl (Trandate) 400 mg PO TID [facility] Last Admin: 09/21/16 18:14 Dose: 400 mg Lactulose (Enulose) 30 gm PO Q6 PRN PRN Reason: Constipation Levothyroxine Sodium (Synthroid) 175 mcg PO 0600 [facility] Last Admin: 09/22/16 06:09 Dose: 175 mcg Lidocaine (Lidocaine 5%) 0 gm TOP BID PRN PRN Reason: Pain, moderate (4-7) Lisinopril (Zestril) 10 mg PO DAILY [facility] Last Admin: 09/21/16 10:16 Dose: 10 mg Lorazepam (Ativan) 0.5 mg PO BID [facility] Last Admin: 09/21/16 18:14 Dose: 0.5 mg Morphine Sulfate (Morphine) 2 mg IVP Q8 PRN PRN Reason: Pain, severe (8-10) Last Admin: 09/22/16 08:31 Dose: 2 mg Ondansetron HCl (Zofran Odt) 4 mg PO TID PRN PRN Reason: Nausea/Vomiting Pantoprazole Sodium (Protonix Ec Tab) 40 mg PO 0600,1630 [facility] Last Admin: 09/22/16 06:09 Dose: 40 mg Polyethylene Glycol (Miralax) 17 gm PO DAILY [facility] Last Admin: 09/21/16 10:14 Dose: 17 gm Sertraline HCl (Zoloft) 50 mg PO DAILY [facility] Last Admin: 09/21/16 10:15 Dose: 50 mg Tamsulosin HCl (Flomax) 0.4 mg PO DAILY [facility] Last Admin: 09/21/16 10:15 Dose: 0.4 mg Tramadol HCl (Ultram) 50 mg PO DIN PRN PRN Reason: Pain, moderate (4-7) Last Admin: 09/18/16 18:21 Dose: 50 mg Zolpidem Tartrate (Ambien) 5 mg PO HS PRN; Protocol PRN Reason: Insomnia Last Admin: 09/21/16 22:05 Dose: 5 mg - Labs Labs: 09/22/16 06:45 09/22/16 06:45 - Constitutional Appears: Non-toxic - Head Exam Head Exam: ATRAUMATIC - Eye Exam Eye Exam: Normal appearance - ENT Exam ENT Exam: Normal Exam - Neck Exam Neck Exam: Normal Inspection - Respiratory Exam Respiratory Exam: NORMAL BREATHING PATTERN - Cardiovascular Exam Cardiovascular Exam: +S1, +S2 - GI/Abdominal Exam GI & Abdominal Exam: Soft, Normal Bowel Sounds - Extremities Exam Additional comments: 1+ edema - Neurological Exam Neurological Exam: Awake, Oriented x3 - Psychiatric Exam Psychiatric exam: Normal Affect, Normal Mood - Skin Skin Exam: Normal Color Assessment and Plan - Assessment and Plan (Free Text) Assessment: chester/ckd stage 3/dm nephropathy/htn/obstructive uropathy cr bumped today - not sure if related to lisinopril which was started 2 days ago v ? fleets phos enema. will check phos level. will hold lisinopril though already given today htn: well controlled anemia: tsat high no need for iron, will give dose of aranseo lópez +
[2016-09-22] MEDS: POLYETHYLENE GLYCOL 3350 17 GM/Dose PACKET PO SCH (10:56)
[2016-09-22] MEDS: Amoxicillin-Clav 875-125 mg Tab PO SCH (10:57)
[2016-09-22] MEDS ORDERED: Dextrose 50% SYRINGE Inj (50 ml) IVP ONE (12:33)
--- NOTE | 2016-09-24 13:23 | CP.PCM.DIS ---
Provider - Provider Date of Admission: 09/19/16 11:59 Attending physician: Reggie Velasco MD Primary care physician: Araseli Wakefield MD Time Spent in preparation of Discharge (in minutes): 30 Diagnosis - Discharge Diagnosis (1) Acute on chronic renal insufficiency Status: Acute (2) Essential (primary) hypertension Status: Acute Priority: High (3) Back pain Status: Chronic (4) Urinary tract infection associated with catheterization of urinary tract Status: Acute (5) Edema Status: Chronic (6) Neurogenic bladder Status: Acute (7) Uncontrolled hypertension Status: Acute (8) Hyperkalemia Status: Acute Comment: MONIOTR labS CLOSELY. URINEOUT PUT. CONTINUE MEDS. OPTIMISATION OF blood pressure. continue diabetic nmeds. Hospital Course - Lab Results Lab Results: Micro Results 09/20/16 19:08 Urine,López Urine Culture - Final Enterococcus Faecalis Yeast Species Most Recent Lab Values WBC 5.7 10^3/ul (4.5-11.0) 09/22/16 06:45 RBC 3.21 10^6/uL (3.5-6.1) L 09/22/16 06:45 Hgb 9.2 gm/dL (14.0-18.0) L 09/22/16 06:45 Hct 29.0 % (42.0-52.0) L 09/22/16 06:45 MCV 90.3 fL (80.0-105.0) 09/22/16 06:45 MCH 28.7 pg (25.0-35.0) 09/22/16 06:45 MCHC 31.7 g/dl (31.0-37.0) 09/22/16 06:45 RDW 14.1 % (11.5-14.5) 09/22/16 06:45 Plt Count 359 10^3/uL (120.0-450.0) 09/22/16 06:45 MPV 9.9 fl (7.0-11.0) 09/22/16 06:45 Gran % 54.2 % (50.0-68.0) 09/22/16 06:45 Lymph % (Auto) 33.0 % (22.0-35.0) 09/22/16 06:45 Schuyler % (Auto) 8.4 % (1.0-6.0) H 09/22/16 06:45 Eos % (Auto) 3.5 % (1.5-5.0) 09/22/16 06:45 Baso % (Auto) 0.9 % (0.0-3.0) 09/22/16 06:45 Gran # 3.08 (1.4-6.5) 09/22/16 06:45 Lymph # 1.9 (1.2-3.4) 09/22/16 06:45 Schuyler # 0.5 (0.1-0.6) 09/22/16 06:45 Eos # 0.2 (0.0-0.7) 09/22/16 06:45 Baso # 0.05 K/mm3 (0.0-2.0) 09/22/16 06:45 Sodium 137 mmol/L (132-148) 09/22/16 06:45 Potassium 4.9 mmol/L (3.6-5.0) 09/22/16 06:45 Chloride 103 mmol/L (98-107) 09/22/16 06:45 Carbon Dioxide 25 mmol/L (21-33) 09/22/16 06:45 Anion Gap 14 (10-20) 09/22/16 06:45 BUN 65 mg/dL (7-21) H 09/22/16 06:45 Creatinine 3.0 mg/dL (0.5-1.4) H 09/22/16 06:45 Est GFR ( Amer) 29 09/22/16 06:45 Est GFR (Non-Af Amer) 24 09/22/16 06:45 POC Glucose (mg/dL) 121 mg/dL (65-110) H 09/17/16 22:57 Random Glucose 96 mg/dL (70-110) 09/22/16 06:45 Hemoglobin A1c 9.1 % (4.2-6.5) H 09/18/16 06:25 Calcium 8.3 mg/dL (8.4-10.5) L 09/22/16 06:45 Phosphorus 7.2 mg/dL (2.5-4.5) H 09/22/16 11:00 Magnesium 2.2 mg/dL (1.7-2.2) 09/22/16 06:45 Iron 131 ug/dL (45-180) 09/22/16 06:45 TIBC 243 ug/dL (261-462) L 09/22/16 06:45 % Saturation 54 % (20-55) 09/22/16 06:45 Ferritin 48.8 ng/mL 09/22/16 06:45 Total Bilirubin 0.5 mg/dL (0.2-1.3) 09/22/16 06:45 AST 31 U/L (15-59) 09/22/16 06:45 ALT 29 U/L (7-56) 09/22/16 06:45 Alkaline Phosphatase 124 U/L (38-133) 09/22/16 06:45 Total Creatine Kinase 73 U/L (35-230) 09/17/16 19:00 Total Protein 6.0 g/dL (5.8-8.3) 09/22/16 06:45 Albumin 3.1 g/dL (3.0-4.8) 09/22/16 06:45 Globulin 2.9 gm/dL 09/22/16 06:45 Albumin/Globulin Ratio 1.1 (1.1-1.8) 09/22/16 06:45 Aldosterone 1 ng/dL 09/20/16 06:45 25-OH Vitamin D Total < 12.8 NG/ML (30.0-100.0) L 09/20/16 06:45 Urine Color Yellow (YELLOW) 09/20/16 19:08 Urine Appearance Sl cloudy (CLEAR) 09/20/16 19:08 Urine pH 6.0 (4.7-8.0) 09/20/16 19:08 Ur Specific Frederick 1.020 (1.005-1.035) 09/20/16 19:08 Urine Protein 100 mg/dL (<30 mg/dL) H 09/20/16 19:08 Urine Glucose (UA) 100 mg/dL (NEGATIVE) H 09/20/16 19:08 Urine Ketones Negative mg/dL (NEGATIVE) 09/20/16 19:08 Urine Blood Trace-intact (NEGATIVE) H 09/20/16 19:08 Urine Nitrate Negative (NEGATIVE) 09/20/16 19:08 Urine Bilirubin Negative (NEGATIVE) 09/20/16 19:08 Urine Urobilinogen 0.2 E.U./dL (<1 E.U./dL) 09/20/16 19:08 Ur Leukocyte Esterase Small Thaddeus/uL (NEGATIVE) H 09/20/16 19:08 Urine RBC 2 - 5 /hpf (0-2) 09/20/16 19:08 Urine WBC 20 - 25 /hpf (0-6) 09/20/16 19:08 Ur Epithelial Cells 6 - 8 /hpf (0-5) 09/20/16 19:08 Urine Bacteria Many (NEG) 09/20/16 19:08 Urine Other Uyeast 09/20/16 19:08 - Hospital Course Hospital Course: cr-3, mild elevation of phopsphorus Discharge Exam - Head Exam Head Exam: ATRAUMATIC - Additional Findings Additional findings: - Constitutional Appears: No Acute Distress - Head Exam Head Exam: ATRAUMATIC, NORMAL INSPECTION - Eye Exam Eye Exam: EOMI, Normal appearance, PERRL - ENT Exam ENT Exam: Mucous Membranes Moist - Neck Exam Neck exam: Positive for: Normal Inspection. Negative for: Lymphadenopathy, Tenderness - Respiratory Exam Respiratory Exam: Clear to Auscultation Bilateral, NORMAL BREATHING PATTERN. absent: Accessory Muscle Use, Chest Wall Tenderness, Rales, Wheezes - Cardiovascular Exam Cardiovascular Exam: REGULAR RHYTHM, +S1, +S2 - GI/Abdominal Exam GI & Abdominal Exam: Normal Bowel Sounds, Soft. absent: Tenderness - Exam Exam: absent: Scrotal Swelling - Extremities Exam Extremities exam: Positive for: pedal pulses present. Negative for: pedal edema Additional comments: b\l foot drop - Neurological Exam Neurological exam: Alert, Oriented x3 - Psychiatric Exam Psychiatric exam: Normal Mood - Skin Skin Exam: Intact, Normal Color - Additional Findings Additional findings: has lópez- cloudy urine seen Discharge Plan - Follow Up Plan Condition: FAIR Disposition: REHAB FACILITY/REHAB UNIT Instructions: Urinary Retention in Men (GEN), Chronic Kidney Disease (DC), Renal Failure Diet (DC), Diabetes Mellitus Type 2 in Adults (DC) Additional Instructions: You have been discharged from [facility]. You will be transferred to [facility]. 1. UA and Urine Culture prescription has been sent with you. 09/29/16. 2. Cmp and Phosphrus labwork prescription has been sent with you 09/25/16. 3. Your pmd will follow you there. Continue all medications. Referrals: Reggie Velasco MD [Medical Doctor] -
[2016-09-25 15:40] LABS: ALDO/PRA RATIO 2.6 Ratio (0.9-28.9)
== END 2016-09-22 14:04 | DRG 683 ==
LOC: ED 18:02 → ERH 20:35 → 5RNO 09-18 00:06 → OBSVTOIN 09-19 11:59
PROVIDERS: ADMIT Internal Medicine; ATTEND Internal Medicine
DX: N17.9 Acute kidney failure, unspecified (principal); T83.511A Infection and inflammatory reaction due to indwelling urethral catheter, initial encounter; E10.21 Type 1 diabetes mellitus with diabetic nephropathy; E10.40 Type 1 diabetes mellitus with diabetic neuropathy, unspecified; N39.0 Urinary tract infection, site not specified; I12.9 Hypertensive chronic kidney disease with stage 1 through stage 4 chronic kidney disease, or unspecified chronic kidney disease; N18.3 Chronic kidney disease, stage 3 (moderate); Y84.6 Urinary catheterization as the cause of abnormal reaction of the patient, or of later complication, without mention of misadventure at the time of the procedure; M21.372 Foot drop, left foot; E10.319 Type 1 diabetes mellitus with unspecified diabetic retinopathy without macular edema; N31.9 Neuromuscular dysfunction of bladder, unspecified; E87.5 Hyperkalemia; I25.10 Atherosclerotic heart disease of native coronary artery without angina pectoris; M54.9 Dorsalgia, unspecified; D64.9 Anemia, unspecified; E55.9 Vitamin D deficiency, unspecified; G89.4 Chronic pain syndrome; F41.9 Anxiety disorder, unspecified; F32.9 Major depressive disorder, single episode, unspecified; E03.9 Hypothyroidism, unspecified; E10.65 Type 1 diabetes mellitus with hyperglycemia; F51.02 Adjustment insomnia; R33.9 Retention of urine, unspecified; K21.9 Gastro-esophageal reflux disease without esophagitis; M21.379 Foot drop, unspecified foot; B95.2 Enterococcus as the cause of diseases classified elsewhere; E66.9 Obesity, unspecified; Z68.35 Body mass index [BMI] 35.0-35.9, adult; Z86.73 Personal history of transient ischemic attack (TIA), and cerebral infarction without residual deficits; Z79.4 Long term (current) use of insulin; Z79.82 Long term (current) use of aspirin; Z99.3 Dependence on wheelchair

== ENCOUNTER 2016-12-22 21:06 | Inpatient (IN) | payer MEDICARE, MEDICAID ==
[2016-12-22 21:17] VITALS: BMI 36.9
[2016-12-22] MEDS ORDERED: Sodium Chloride 0.9% 1,000 ML IV STA (21:26)
--- NOTE | 2016-12-22 21:38 | ED PDOC ---
Arrival/HPI - General Chief Complaint: Weakness/Neurological Deficit Time Seen by Provider: 12/22/16 21:08 Historian: Patient, Family - History of Present Illness Narrative History of Present Illness (Text): 12/22/16 21:39 A 36 year old male, whose past medical history includes hypertension, diabetes, stroke and neurogenic bladder, was brought in by EMS to the emergency department complaining of headache and visual changes for the past few hours. Patient's family reports patient was lethargic, had slurred speech and low blood pressure of 90/50s tonight. Denies having similar symptoms in the past. Patient notes some diarrhea, nausea, back pain but denies any shortness of breath, chest pain, fever, dizziness, lightheadedness or any other complaints at this time. PMD: Dr. Araseli Wakefield Time/Duration: 1-3 hours Symptom Onset: Sudden Symptom Course: Unchanged Activities at Onset: Rest Context: Home Past Medical History - Provider Review Nursing Documentation Reviewed: Yes - Infectious Disease Hx of Infectious Diseases: None - Tetanus Immunization Tetanus Immunization: Unknown - Cardiac Hx Congestive Heart Failure: Yes Hx CO: Yes Hx Hypertension: Yes - Pulmonary Hx Respiratory Disorders: No - Neurological HX Cerebrovascular Accident: Yes (Multiple CVAs x 6) - HEENT Hx HEENT Disorder: Yes (wears glasses) Hx Macular Degeneration: Yes - Renal Hx Renal Disorder: Yes Hx Pyelonephritis: Yes - Endocrine/Metabolic Hx Diabetes Mellitus Type 1: Yes (dx 10 yrs old) Hx Diabetes Mellitus Type 2: Yes Hx Hypothyroidism: Yes - Hematological/Oncological Hx Blood Disorders: No - Integumentary Hx Dermatological Disorder: No - Musculoskeletal/Rheumatological Hx Falls: Yes - Gastrointestinal Hx Gastrointestinal Disorders: Yes (colitis, constipation at times) Hx Gastroesophageal Reflux: Yes - Genitourinary/Gynecological Hx Genitourinary Disorders: Yes Hx Hematuria: Yes (06-01-16) Hx Incontinence: Yes (urine and stool) Hx Urinary Tract Infection: Yes Other/Comment: incontinence - had interstem put in - Psychiatric Hx Psychophysiologic Disorder: Yes Hx Anxiety: Yes Hx Depression: No Hx Emotional Abuse: No Hx Physical Abuse: No Hx Substance Use: No - Past Surgical History Past Surgical History: No Previous - Surgical History Other/Comment: bladder surgery - Anesthesia Hx Anesthesia: Yes Hx Anesthesia Reactions: No Hx Malignant Hyperthermia: No - Suicidal Assessment Feels Threatened In Home Enviroment: No Family/Social History - Physician Review Nursing Documentation Reviewed: Yes Family/Social History: Other (non contributory) Smoking Status: Never Smoked Hx Alcohol Use: No Hx Substance Use: No Hx Substance Use Treatment: No Allergies/Home Meds Allergies/Adverse Reactions: Allergies sulfamethoxazole [From Bactrim] Allergy (Verified 09/17/16 18:18) ANAPHYLAXIS trimethoprim [From Bactrim] Allergy (Verified 09/17/16 18:18) ANAPHYLAXIS Home Medications: Home Meds Medication Instructions Recorded Confirmed Aspirin [Ecotrin] 81 mg PO DAILY 03/04/16 12/22/16 Clopidogrel [Plavix] 75 mg PO DAILY 03/04/16 12/22/16 Levothyroxine [Synthroid] 175 mcg PO DAILY 03/04/16 12/22/16 Ondansetron ODT [Zofran ODT] 4 mg PO TID PRN 03/04/16 12/22/16 Pantoprazole Sodium [Protonix] 40 mg PO BID 03/04/16 12/22/16 Sertraline HCl 50 mg PO DAILY 03/04/16 12/22/16 Tamsulosin [Flomax] 0.4 mg PO DAILY 03/04/16 12/22/16 Furosemide [Lasix] 20 mg PO DAILY PRN 07/12/16 12/22/16 Gabapentin [Neurontin] 600 mg PO TID 07/12/16 12/22/16 Acetaminophen/Oxycodone Hydr 10 - 325 mg PO Q6H 09/14/16 12/22/16 [Percocet 10/325 mg Tab] Lorazepam [Ativan] 0.5 mg PO BID 09/14/16 12/22/16 traMADol [Ultram] 50 mg PO DIN PRN 09/14/16 12/22/16 Insulin Detemir [Levemir] 26 unit SC HS 09/17/16 12/22/16 Insulin Lispro [humALOG] 7 units SC AC 09/17/16 12/22/16 Review of Systems - Physician Review All systems were reviewed & negative as marked: Yes - Review of Systems Constitutional: absent: Fevers, Other (lightheadedness) Eyes: Vision Changes Respiratory: absent: SOB Cardiovascular: absent: Chest Pain Gastrointestinal: Diarrhea, Nausea Musculoskeletal: Back Pain Neurological: Headache, Speech Changes. absent: Dizziness Physical Exam Vital Signs Reviewed: Yes Vital Signs Temp Pulse Resp BP Pulse Ox 12/23/16 01:06 72 18 128/76 99 12/22/16 23:06 76 18 136/74 99 12/22/16 21:16 97.5 F L 70 18 144/66 98 Appearance: Positive for: Well-Appearing, Non-Toxic, Comfortable Pain Distress: None Mental Status: Positive for: Alert and Oriented X 3 - Systems Exam Head: Present: Atraumatic, Normocephalic Pupils: Present: PERRL Extroacular Muscles: Present: EOMI Conjunctiva: Present: Normal Mouth: Present: Moist Mucous Membranes Neck: Present: Normal Range of Motion Respiratory/Chest: Present: Clear to Auscultation, Good Air Exchange. No: Respiratory Distress, Accessory Muscle Use Cardiovascular: Present: Regular Rate and Rhythm, Normal S1, S2. No: Murmurs Abdomen: Present: Normal Bowel Sounds. No: Tenderness, Distention, Peritoneal Signs Back: Present: Normal Inspection Upper Extremity: Present: Normal Inspection. No: Cyanosis, Edema Lower Extremity: Present: Other (baseline weakness bilateral legs). No: Edema Neurological: Present: GCS=15, CN II-XII Intact, Speech Normal, Other (no focal deficits) Skin: Present: Normal Color, Other (clammy). No: Rashes Psychiatric: Present: Alert, Oriented x 3, Normal Insight, Normal Concentration Medical Decision Making ED Course and Treatment: 12/22/16 22:41 EKG: Ordered, reviewed, and independently interpreted the EKG. Rate : 68 BPM Rhythm : NSR Interpretation : Nonspecific T wave abnormality similar to prior EKG on 06/02/16 CT Head Without Intravenous Contrast FINDINGS: Brain: No acute intracranial hemorrhage. No significant white matter disease. No edema. Ventricles: No significant ventriculomegaly. Bones: No acute displaced fracture. Sinuses: Unremarkable as visualized. No acute sinusitis. Mastoid air cells: Unremarkable as visualized. No mastoid effusion. IMPRESSION: No acute intracranial hemorrhage, or suspicious mass effect. Dictated and Authenticated by: Florence Ty MD 12/22/2016 11:27 PM Eastern Time ([place] & [place]) 12/23/16 01:00 Chest xray: No acute findings, interpreted by me. 12/23/16 01:[address] Manzano in detail, who agrees to admit patient to the hospital. I have discussed the results and plan with the patient, who expresses understanding. Patient given the opportunity to ask question, all questions were answered and there is agreement with the plan to be admitted to the hospital. - Lab Interpretations Microbiology Results: Microbiology Results 12/22/16 22:30 Blood-Venous Blood Culture - Preliminary NO GROWTH AFTER 48 HOURS 12/22/16 22:01 Blood-Venous Blood Culture - Preliminary NO GROWTH AFTER 48 HOURS 12/22/16 23:40 Urine Urine Culture - Preliminary Gram Negative Ignacio Lab Results: 12/22/16 22:01 12/22/16 22: Lab Results 12/22/16 23:40: Urine Color Light yellow, Urine Appearance Cloudy, Urine pH 8.0 , Ur Specific [place] 1.020, Urine Protein >=300 H, Urine Glucose (UA) Negative , Urine Ketones Negative, Urine Blood Trace-intact H, Urine Nitrate Negative, Urine Bilirubin Negative, Urine Urobilinogen 0.2, Ur Leukocyte Esterase Large H , Urine RBC 15 - 20, Urine WBC Tntc, Ur Epithelial Cells 0 - 2, Urine Bacteria Mod 12/22/16 22:: TSH 3rd Generation 2.88 12/22/16 22:01: WBC 7.3 D, RBC 3.41 L, Hgb 9.8 L, Hct 30.2 L, MCV 88.6, MCH 28.7, MCHC 32.5, RDW 13.5, Plt Count 359, MPV 10.2, Gran % 67.5, Lymph % (Auto) 19.8 L, [place] % (Auto) 9.4 H, Eos % (Auto) 2.9, Baso % (Auto) 0.4, Gran # 4.93, Lymph # 1.5, [place] # 0.7 H, Eos # 0.2, Baso # 0.03 12/22/16 22:01: Sodium 139, Chloride 109 H, Potassium 5.0, Carbon Dioxide 20 L, Anion Gap 15, BUN 60 H, Creatinine 3.5 H, Est GFR ( Amer) 24, Est GFR ( Non-Af Amer) 20, Random Glucose 72, Calcium 8.2 L, Total Bilirubin 0.4, AST 18, ALT 33, Alkaline Phosphatase 128 H, Troponin I 0.02 D, Total Protein 5.3 L, Albumin 2.7 L, Globulin 2.6, Albumin/Globulin Ratio 1.0 L 12/22/16 22:01: pO2 203 H, VBG pH 7.30 L, VBG pCO2 47.0, VBG HCO3 23.1, VBG Total CO2 24.5, VBG O2 Sat (Calc) 99.4 H, VBG Base Excess -3.6 L, VBG Potassium 5.3 H, Sodium 138.0, Chloride 112.0 H, Glucose 76, Lactate 1.2, FiO2 21.0, Venous Blood Potassium 5.3 H I have reviewed the lab results: Yes - RAD Interpretation Radiology Orders: 12/22/16 21:25 HEAD W/O CONTRAST [CT] Stat 12/22/16 21:26 CHEST PORTABLE [RAD] Stat - EKG Interpretation Interpreted by ED Physician: Yes Type: 12 lead EKG - Medication Orders Current Medication Orders: Acetaminophen (Tylenol 325mg Tab) 650 mg PO Q6H PRN PRN Reason: Pain, moderate (4-7) Last Admin: 12/23/16 09:37 Dose: 650 mg [facility] Pain/Vitals Document 12/23/16 09:37 MAD (Rec: 12/23/16 09:38 [id number]) Pain Reassessment Is This A Pain ReAssessment? Yes Sleep Is patient sleeping during reassessment? No Presence of Pain Presence of Pain Yes Pain Scale Used Pain Scale Used Numeric Location Left, Right or Bilateral Left Pain Location Body Site Back Scale Used Numeric Pain Behavior Facial Grimacing Re-Assess: [facility] Pain/Vitals Document 12/23/16 10:37 MAD (Rec: 12/23/16 11:25 [id number]) Pain Reassessment Is This A Pain ReAssessment? Yes Sleep Is patient sleeping during reassessment? Yes Aspirin (Ecotrin) 81 mg PO DAILY [facility] Last Admin: 12/24/16 09:22 Dose: 81 mg Clonidine HCl (Catapres-Tts3 0.3 Mg/24 Hr) 1 patch TD Q7D@1000 [facility] Last Admin: 12/23/16 09:27 Dose: 1 patch [facility] Pulse and Blood Pressure Document 12/23/16 09:27 MAD (Rec: 12/23/16 09:28 [id number]) Pulse Pulse Rate (60-90) 80 Blood Pressure Blood Pressure (100/60-150/90) 146/81 Clopidogrel Bisulfate (Plavix) 75 mg PO DAILY [facility] Last Admin: 12/24/16 09:16 Dose: 75 mg Famotidine (Pepcid) 40 mg PO HS [facility] Last Admin: 12/24/16 22:31 Dose: 40 mg Gabapentin (Neurontin) 600 mg PO TID [facility] PRN Reason: Protocol Last Admin: 12/24/16 17:06 Dose: 600 mg Behavioural Document 12/24/16 17:06 [place] (Rec: 12/24/16 17:07 [place] [id number]) Maintenance Maintenance Dose Yes Nonmedicinal Nonmedicinal Interventions Redirect Re-Assess: Reassess Psych Meds Document 12/24/16 18:06 TAV (Rec: 12/24/16 18:57 TAV [id number]) Reassess Psych Med Effective Hydralazine HCl (Apresoline) 50 mg PO Q8 [facility] Last Admin: 12/25/16 06:08 Dose: 50 mg MAR Pulse and Blood Pressure Document 12/25/16 06:08 BR (Rec: 12/25/16 06:09 BR [id number]) Pulse Pulse Rate (60-90) 79 Blood Pressure Blood Pressure (100/60-150/90) 149/80 Ceftriaxone Sodium (Rocephin 1 Gram Ivpb) 1 gm in 100 mls @ 100 mls/hr IVPB DAILY [facility] PRN Reason: Protocol Last Admin: 12/24/16 09:48 Dose: 100 mls/hr eMAR Start Stop Document 12/24/16 09:48 TAV (Rec: 12/24/16 09:48 TAV [id number]) Intravenous Solution Start Date 12/24/16 Start Time 09:48 End Date 12/24/16 End time 10:48 Total Infusion Time 60 Insulin Detemir (Levemir) 30 unit SC [facility] Last Admin: 12/24/16 22:31 Dose: 30 unit MAR Blood Glucose Document 12/24/16 22:31 BR (Rec: 12/24/16 22:32 BR [id number]) Blood Glucose Finger Stick Blood Glucose (70-120) 279 Subcutaneous Administrations Document 12/24/16 22:31 BR (Rec: 12/24/16 22:32 BR [id number]) Charges for Administration # of Subcutaneous Administrations 1 Insulin Human Lispro (Humalog) 7 units SC [facility] Last Admin: 12/24/16 16:31 Dose: Not Given Non-Admin Reason: Blood Sugar Parameter MAR Blood Glucose Document 12/24/16 16:31 TAV (Rec: 12/24/16 16:31 TAV [id number]) Blood Glucose Finger Stick Blood Glucose (70-120) 79 Insulin Human Regular (Humulin R Med) 0 units SC ACHS [facility] PRN Reason: Protocol Last Admin: 12/24/16 22:31 Dose: Not Given Non-Admin Reason: Blood Sugar Parameter MAR Blood Glucose Document 12/24/16 22:31 BR (Rec: 12/24/16 22:31 BR [id number]) Blood Glucose Finger Stick Blood Glucose (70-120) 279 Labetalol HCl (Trandate) 400 mg PO TID [facility] Last Admin: 12/24/16 17:05 Dose: 400 mg MAR Pulse and Blood Pressure Document 12/24/16 17:05 [place] (Rec: 12/24/16 17:06 [place] [facility] [id number]) Pulse Pulse Rate (60-90) 70 Blood Pressure Blood Pressure (100/60-150/90) 127/83 Levothyroxine Sodium (Synthroid) 175 mcg PO 0600 [facility] Last Admin: 12/25/16 06:09 Dose: 175 mcg Lidocaine (Lidoderm) 1 ea TD DAILY PRN PRN Reason: back pain Ondansetron HCl (Zofran Inj) 4 mg IVP Q6H PRN PRN Reason: Nausea/Vomiting Last Admin: 12/23/16 09:26 Dose: 4 mg IVP Administration Document 12/23/16 09:26 MAD (Rec: 12/23/16 09:26 MAD [facility] [id number]) Charges for Administration # of IVP Administrations 1 Polyethylene Glycol (Miralax) 17 gm PO DAILY PRN PRN Reason: Constipation Sertraline HCl (Zoloft) 50 mg PO DAILY [facility] Last Admin: 12/24/16 09:22 Dose: 50 mg Tamsulosin HCl (Flomax) 0.4 mg PO DAILY [facility] Last Admin: 12/24/16 09:22 Dose: 0.4 mg Discontinued Medications Sodium Chloride (Sodium Chloride 0.9%) 1,000 mls @ 999 mls/hr IV .Q1H1M STA Stop: 12/22/16 22:26 Last Admin: 12/22/16 21:45 Dose: 999 mls/hr eMAR Start Stop Document 12/22/16 21:45 DAWNA (Rec: 12/23/16 01:35 DAWNA [id number]) Intravenous Solution Start Date 12/22/16 Start Time 21:45 Ceftriaxone Sodium (Rocephin 1 Gram Ivpb) 1 gm in 100 mls @ 200 mls/hr IVPB STAT STA PRN Reason: Protocol Stop: 12/23/16 00:58 Last Admin: 12/23/16 01:37 Dose: 200 mls/hr eMAR Start Stop Document 12/23/16 01:37 DAWNA (Rec: 12/23/16 01:37 DAWNA [id number]) Intravenous Solution Start Date 12/23/16 Start Time 01:37 End Date 12/23/16 End time 02:07 Total Infusion Time 30 Insulin Detemir (Levemir) 26 unit SC HS [facility] Insulin Human Regular (Humulin R Low) 1 units SC ACHS [facility] PRN Reason: Protocol Last Admin: 12/23/16 01:29 Dose: Not Given Non-Admin Reason: Blood Sugar Parameter MAR Blood Glucose Document 12/23/16 01:29 DAWNA (Rec: 12/23/16 01:30 DAWNA [id number]) Blood Glucose Finger Stick Blood Glucose (70-120) 271 Subcutaneous Administrations Document 12/23/16 01:29 DAWNA (Rec: 12/23/16 01:30 DAWNA [id number]) Charges for Administration # of Subcutaneous Administrations 0 Insulin Human Regular (Humulin R Low) 0 units SC ACHS [facility] PRN Reason: Protocol Last Admin: 12/23/16 08:15 Dose: 7 units MAR Blood Glucose Document 12/23/16 08:15 [facility] (Rec: 12/23/16 08:17 [id number]) Blood Glucose Finger Stick Blood Glucose (70-120) 438 Subcutaneous Administrations Document 12/23/16 08:15 MAD (Rec: 12/23/16 08:17 [id number]) Injection Site MAR Injection Site Right Abdomen Charges for Administration # of Subcutaneous Administrations 1 Insulin Human Regular (Humulin R) 10 units SC ONCE ONE Stop: 12/25/16 02:27 Last Admin: 12/25/16 02:37 Dose: 10 units MAR Blood Glucose Document 12/25/16 02:37 BR (Rec: 12/25/16 02:37 BR [id number]) Blood Glucose Finger Stick Blood Glucose (70-120) 424 Subcutaneous Administrations Document 12/25/16 02:37 BR (Rec: 12/25/16 02:37 BR [id number]) Charges for Administration # of Subcutaneous Administrations 1 Lidocaine (Lidoderm) 1 ea TD BID [facility] Last Admin: 12/23/16 09:27 Dose: 1 ea MAR Transdermal Patch Site Document 12/23/16 09:27 MAD (Rec: 12/23/16 09:27 MAD [facility] [id number]) Transdermal Patch Site Transdermal Patch Site Right Lower Back - Scribe Statement The provider has reviewed the documentation as recorded by the Garrett Masters Provider Scribe Attestation: All medical record entries made by the Scribe were at my direction and personally dictated by me. I have reviewed the chart and agree that the record accurately reflects my personal performance of the history, physical exam, medical decision making, and the department course for this patient. I have also personally directed, reviewed, and agree with the discharge instructions and disposition. Disposition/Present on Arrival - Present on Arrival Any Indicators Present on Arrival: Yes History of DVT/PE: Yes History of Uncontrolled Diabetes: Yes Urinary Catheter: Yes History of Decub. Ulcer: No History Surgical Site Infection Following: None - Disposition Have Diagnosis and Disposition been Completed?: Yes Diagnosis: Acute kidney injury, Urinary tract infection Disposition: HOSPITALIZED Disposition Time: 01:00 Condition: STABLE
[2016-12-22 22:15] LABS: VENOUS BLOOD GAS BASE EXCESS -3.6 mmol/L (0.0-2.0)
[2016-12-22 22:19] LABS: BASO # 0.03 K/mm3 (0.0-2.0); BASO % 0.4 % (0.0-3.0); EOS # 0.2 (0.0-0.7); EOS % 2.9 % (1.5-5.0); GRAN # 4.93 (1.4-6.5); GRAN % 67.5 % (50.0-68.0); HEMATOCRIT 30.2 % (42.0-52.0); LYMPH # 1.5 (1.2-3.4); LYMPH % 19.8 % (22.0-35.0); MEAN CELL VOLUME 88.6 fl (80.0-105.0); MEAN CORPUSCULAR HEMOGLOBIN 28.7 pg (25.0-35.0); MEAN CORPUSCULAR HGB CONC 32.5 g/dl (31.0-37.0); MEAN PLATELET VOLUME 10.2 fl (7.0-11.0); MONO # 0.7 (0.1-0.6); MONO % 9.4 % (1.0-6.0); RED CELL DISTRIBUTION WIDTH 13.5 % (11.5-14.5); WHITE BLOOD COUNT 7.3 10^3/ul (4.5-11.0)
[2016-12-22 22:25] LABS: BILIRUBIN,TOTAL 0.4 mg/dL (0.2-1.3); CALCIUM 8.2 mg/dL (8.4-10.5); TOTAL PROTEIN 5.3 g/dL (5.8-8.3)
[2016-12-22 22:36] LABS: TROPONIN I 0.02 ng/mL
--- NOTE | 2016-12-22 23:27 | CT ---
EXAM: CT Head Without Intravenous Contrast CLINICAL HISTORY: 36 years old, male; Signs and symptoms; Altered mental status/memory loss and walking, difficulty; Confusion or disorientation; Additional info: AMS TECHNIQUE: Axial computed tomography images of the head/brain without intravenous contrast. All CT scans at this facility use one or more dose reduction techniques, viz.: automated exposure control; ma/kV adjustment per patient size (including targeted exams where dose is matched to indication; i.e. head); or iterative reconstruction technique. COMPARISON: CT - HEAD W/O CONTRAST 09/13/2016 11:45:57 PM FINDINGS: Brain: No acute intracranial hemorrhage. No significant white matter disease. No edema. Ventricles: No significant ventriculomegaly. Bones: No acute displaced fracture. Sinuses: Unremarkable as visualized. No acute sinusitis. Mastoid air cells: Unremarkable as visualized. No mastoid effusion. IMPRESSION: No acute intracranial hemorrhage, or suspicious mass effect.
[2016-12-22 23:54] LABS: URINE BILIRUBIN NEGATIVE (NEGATIVE); URINE BLOOD TRACE-INTACT (NEGATIVE); URINE GLUCOSE (UA) NEGATIVE (NEGATIVE); URINE KETONE NEGATIVE (NEGATIVE); URINE LEUKOCYTE ESTERASE LARGE Leu/uL (NEGATIVE); URINE PROTEIN >=300 mg/dL (<30 mg/dL); URINE UROBILINOGEN 0.2 E.U./dL (<1 E.U./dL)
[2016-12-23 00:26] LABS: URINE APPEARANCE CLOUDY (CLEAR); URINE COLOR LIGHT YELLOW (YELLOW)
[2016-12-23 00:29] LABS: URINE BACTERIA MOD (NEG); URINE EPITHELIAL CELLS 0 - 2 /hpf (0-5); URINE RBC 15 - 20 /hpf (0-2); URINE WBC TNTC /hpf (0-6)
[2016-12-23] MEDS ORDERED: cefTRIAXone 1 gm 1 GM/100 ML BAG IVPB STA (00:29)
[2016-12-23] MEDS ORDERED: Insulin Reg-LOW-Coverage SC SCH ×2 (07:30)
[2016-12-23] MEDS ORDERED: POLYETHYLENE GLYCOL 3350 17 GM/Dose PACKET PO PRN (08:29)
--- NOTE | 2016-12-23 08:40 | RAD ---
HISTORY: ams COMPARISON: 09/14/2016 FINDINGS: LUNGS: No active pulmonary disease. PLEURA: No significant pleural effusion identified, no pneumothorax apparent. CARDIOVASCULAR: Heart size appears enlarged. OSSEOUS STRUCTURES: No significant abnormalities. VISUALIZED UPPER ABDOMEN: Normal. OTHER FINDINGS: None. IMPRESSION: Cardiomegaly. No acute infiltrates
[2016-12-23] MEDS ORDERED: Lidocaine 5% Patch TD SCH (10:00)
[2016-12-23] MEDS ORDERED: Lidocaine 5% Patch TD PRN (10:43)
[2016-12-23] MEDS: Insulin Lispro 1 UNITS/0.01 ML SC SCH ×2 (11:36→17:00)
[2016-12-23] MEDS: Insulin Reg-MEDIUM-Coverage SC SCH ×3 (11:37→21:22)
--- NOTE | 2016-12-23 14:23 | CARD ---
APPROVED REPORT EKG Measurement Heart [id number] <Conclusion> Normal sinus rhythm T wave abnormality, consider lateral ischemia Prolonged QT Abnormal ECG
[2016-12-23] MEDS: Insulin Detemir 100 units/ml Vial (Levemir) SC SCH (21:22)
[2016-12-23] MEDS ORDERED: Insulin Detemir 100 units/ml Vial (Levemir) SC SCH (22:00)
--- NOTE | 2016-12-24 05:00 | HP ---
DATE: 12/23/2016 HISTORY OF PRESENT ILLNESS: THIS 36-year-old male was examined at his bedside. His case was reviewed in detail with himself and his nurse, Shazia Soria, registered nurse. The patient is a 36-year-old male who presented with altered mental status and a family member noticing hypotension at his home. 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 The patient is a former licensed real estate broker, who, after his last stroke and myocardial infarction, became disabled and unable to work any further. He was most recently treated with a neurostimulator placement for his neurogenic bladder, which he says has been successful and has allowed him to discontinue chronic bladder catheterization via Lira catheters and also the need for intermittent catheterization. He says he follows with a urologist in [place], [place], and that of late, has had no significant postvoid residuals. It should be noted that the patient does have a significant past medical history of recurrent urinary tract infections secondary to history of indwelling Lira catheters prior to his bladder stimulator for his neurogenic bladder. REVIEW OF SYSTEMS: CONSTITUTIONAL: The patient denied any nausea, fever or chills. HEAD: No headache. He has a history of multiple strokes in his past. HEENT: Eye review has macular degeneration and diabetic retinopathy. Ear review, no hearing loss. Throat review, no swallowing difficulty. NECK: No stiffness. He does have a history of hypothyroidism. CORONARY: Chronic hypertension, stable atherosclerotic heart disease; status post myocardial infarction. PULMONARY: No cough. No hemoptysis. GI: Peptic ulcer disease with GERD. : Neurogenic bladder and chronic renal failure stage IV. Recurrent urinary tract infections. VASCULAR: No claudication. PSYCHOLOGICAL: Depression. NEUROLOGICAL: Recurrent strokes and bilateral lower extremity weakness, for which he is receiving physical and occupational therapy and at present, is able to walk with assistance approximately 30 feet with a rolling walker. HEMATOLOGICAL: Anemia of chronic disease. ENDOCRINOLOGICAL: Insulin-dependent diabetes mellitus, hypothroidism and hyperlipidemia. FAMILY HISTORY: Mother with colon cancer. Father with diabetes mellitus type 2. SOCIAL HISTORY: Patient is a current nonsmoker, former drinker and denies IVDA. ALLERGIES: BACTRIM. PHYSICAL EXAMINATION: VITAL SIGNS: The patient is with temperature 98.5, respirations 18, pulse 83, blood pressure 121/77, pulse ox 95% on room air. HEENT: Head is normocephalic and atraumatic. Eyes, no icterus. Ears clear. Throat, non-injected. NECK: Supple. HEART: Regular S1 and S2. No pathological rubs, murmurs, or gallops. LUNGS: Clear to auscultation. ABDOMEN: Obese and nontender. No palpable organomegaly. No rebound. No guarding. No tenderness. EXTREMITIES: Trace pedal edema bilaterally. VASCULAR: Legs are warm to touch. PSYCHOLOGICAL: Alert and oriented x3. NEUROLOGIC: Chronic bilateral lower extremity weakness. The patient is able to straight leg raise both legs off the bed independently. SKIN: Without rash. LABORATORY DATA: White count 7300, hemoglobin 9.8, hematocrit 30.2, platelets 359,000. Sodium 139, K 5.0, chloride 109, bicarb 20, BUN 60, creatinine 3.5, estimated GFR 20, blood sugar earlier 438, presently 289 mg/dL, bilirubin 0.4, AST 18, ALT 13, alk phos 128. TSH normal 2.88. Urinalysis greater than 300 mg/dL of protein, moderate bacteria in the urine. Head CT reviewed shows no acute intracranial hemorrhage. Chest x-ray shows no active pulmonary disease. There was no evidence of acute CHF or pleural effusions. I have reviewed EKG, shows a normal sinus rhythm with nonspecific ST-T wave changes. IMPRESSION: A 36-year-old male with multiple medical problems as listed above, admitted with hypotension and altered mental status, rule out urosepsis with comorbidities of old stroke, myocardial infarction, stable atherosclerotic heart disease, chronic hypertension, neurogenic bladder, uncontrolled insulin-dependent diabetes mellitus, degenerative arthritis, peripheral neuropathy, anemia of chronic disease, peptic ulcer disease with gastroesophageal reflux disease, hypothyroidism, degenerative arthritis, depression, and post stroke bilateral lower extremity hemiparesis. PLAN: I have discussed with the patient and nursing is to continue renal heart-healthy diabetic diet. He will work witht physical therapy for ambulation safety. He continues on Zoloft 50 mg p.o. daily, labetalol 400 mg p.o. t.i.d., Synthroid 175 mcg p.o. daily. The patient did receive fluid resuscitation in the ER. He is going to await the results of blood and urine cultures while continuing Rocephin 1 g IV q.24, Plavix 75 mg p.o. daily, Pepcid 40 mg p.o. h.s., Neurontin 600 mg p.o. t.i.d., MiraLax 17 g p.o. daily p.r.n. obstipation, Lidoderm patch to lower back daily p.r.n. pain, Levemir 30 units subcu h.s., Humalog 7 units a.c. each meal, regular Humulin insulin medium dose protocol coverage a.c. meals and h.s., Flomax 0.4 mg p.o. daily, Ecotrin 81 mg p.o. daily, Catapres-TTS three patch weekly, and hydralazine 50 mg p.o. q.8 hours. Pending the results and his clinical progress, the patient will be considered for a transition care rehab for antibiotics and adjustment of insulin along with physical therapy. The patient will need outpatient physical and occupational therapy for additional reconditioning efforts while monitoring close clinical and laboratory follow-ups of his multiple medical comorbidities. All of these was discussed in detail with the patient and his nurse. Greater than sixty minutes were spent in the care, management, and counseling of this patient today. Alcira Manzano MD MTDD
[2016-12-24] MEDS: Levothyroxine 175 MCG TAB PO SCH (07:41)
[2016-12-24] MEDS: Insulin Lispro 1 UNITS/0.01 ML SC SCH ×3 (09:14→16:31)
[2016-12-24] MEDS: Insulin Reg-MEDIUM-Coverage SC SCH ×4 (09:15→22:31)
[2016-12-24] MEDS: cefTRIAXone 1 gm 1 GM/100 ML BAG IVPB SCH (09:48)
--- NOTE | 2016-12-24 17:50 | PN ---
DATE: 12/24/2016 SUBJECTIVE: This 36-year-old male who was examined at his bedside. His case was reviewed in detail with himself and his nurse, Matthew Hogan. Nursing reports that the patient has been incontinent of urine throughout the day. When I questioned the patient as to this finding, he states that he is under timed voiding training by his urologist; however, due to hospitalization and fatigue, he has not been able to attempt timed voiding every 2 hours as recommended by his urologist. This was discussed in detail with both himself and nursing and during the day when the patient is awake, he will be encouraged every 2 hours to attempt to void and during the night time hours he was given the option of diapers or [place] catheter to prevent urinary incontinence and skin breakdown. The patient denies any fever, chills or chest pain, but urine cultures revealed that he is growing a gram-negative carolee and excessive 100,000 colonies, identification and sensitivities are pending. PHYSICAL EXAMINATION: VITAL SIGNS: Temperature is 98, respirations 20, pulse 74 and blood pressure 147/83 with a pulse ox of 95% on room air. HEENT: Head is normocephalic, atraumatic. Eyes: No icterus. Ears: Clear. Throat: Noninjected. NECK: Supple. HEART: Regular S1, S2. No pathological rubs, murmurs or gallops. LUNGS: Clear to auscultation. ABDOMEN: Obese, nontender. No palpable organomegaly. No rebound, no guarding. No tenderness. EXTREMITIES: Have trace edema bilaterally. VASCULAR: Legs warm to touch. PSYCHOLOGICAL: Alert and oriented x3. NEUROLOGICAL: Unchanged. LABORATORY DATA: White count 7300, hemoglobin 9.8, hematocrit 30.2, platelets 359,000. Random blood sugar 321. Sodium 139, potassium 5.0, chloride 109, bicarb 20, BUN 60, creatinine 3.5. Liver function testing showed bilirubin 0.4, AST 18, ALT 33 and alk phos 128. TSH normal at 2.88. IMPRESSION: A 36-year-old male with recurrent urinary tract infections, history of neurogenic bladder, now with urinary incontinence, increasing the risk for skin breakdown and sacral ulceration, given his clinical comorbidities of old stroke and bilateral lower extremity weakness for which the patient is receiving ongoing physical therapy for reconditioning and gait training as an outpatient. Also with comorbidities of chronic hypertension, chronic renal failure stage IV, insulin-dependent diabetes mellitus, morbid obesity, spinal arthritis, degenerative arthritis, obstipation, anemia of chronic disease, peripheral neuropathy, gastroesophageal reflux disease, history of stroke, history of myocardial infarction, hypothyroidism, degenerative arthritis and depression. PLAN: At present as discussed with patient is to attempt out of bed to chair with assistance and to proceed with physical therapy for reconditioning and ambulation safety. He continues on renal diabetic heart-healthy diet. He continues on Zoloft 50 mg p.o. daily, Zofran 4 mg IV q.6 hours p.r.n. nausea, vomiting, Tylenol 650 mg p.o. q.6 hours. p.r.n. pain or fever, labetalol 400 mg p.o. t.i.d., Synthroid 175 mcg p.o. daily, Rocephin 1 g IV q.24, Plavix 75 mg p.o. daily, Pepcid 40 mg p.o. bedtime, Neurontin 600 mg p.o. t.i.d., MiraLax 17 g p.o. daily p.r.n. obstipation, Lidoderm 1 patch daily to affected spinal area daily p.r.n. pain, Levemir 30 units subcu bedtime, Humalog 7 units subcu a.c. meals t.i.d., regular Humulin insulin medium protocol a.c. meals and bedtime, Flomax 0.4 mg p.o. daily, Ecotrin 81 mg p.o. daily, clonidine TTS 3 patch weekly and hydralazine 50 mg p.o. q.8 hours. We will await the results of blood and urine culture testing as well as urine identification and sensitivity reports. He has in evaluation, ordered for transitional care rehab and ultimate plan will be for discharge to home when medically stable. Greater than fifty minutes was spent in the care, management and counseling of this patient today. All questions were answered. Case was reviewed in detail with the patient's nurse regarding urinary incontinence issues which will be managed on a daily basis. Alcira Manzano MD [facility] # [id number] MTDD
[2016-12-24] MEDS: Insulin Detemir 100 units/ml Vial (Levemir) SC SCH (22:31)
[2016-12-25] MEDS ORDERED: Insulin Regular 1 UNITS/0.01 ML ML SC ONE (02:26)
--- NOTE | 2016-12-25 03:37 | CP.PCM.PN ---
Subjective - Date & Time of Evaluation Date of Evaluation: 12/25/16 Time of Evaluation: 03:35 - Subjective Subjective: S:Patient's finger stick blood glucose was 423 mg %. He is asymptomatic. 10 Units of regular insulin was ordered. When I went to see patient ,he was asleep. O: Last Vital Signs 3 Temp 97.8 F 12/24/16 16:00 Pulse 76 12/24/16 22:31 Resp 20 12/24/16 16:00 BP 169/90 H 12/24/16 22:31 Pulse Ox 96 12/24/16 16:00 Asleep. LUNGS: Normal breathing pattern. A:Hyperglycemia. P:Regular insulin 10 Units SC x 1. Objective - Vital Signs/Intake and Output Vital Signs (last 24 hours): Temp Pulse Resp BP Pulse Ox 97.8 F 76 20 169/90 H 96 12/24/16 16:00 12/24/16 22:31 12/24/16 16:00 12/24/16 22:31 12/24/16 16:00 Intake and Output: 12/24/16 12/25/16 18:59 06:59 Intake Total 480 Output Total 500 Balance -20 - Medications Medications: Current Medications Acetaminophen (Tylenol 325mg Tab) 650 mg PO Q6H PRN PRN Reason: Pain, moderate (4-7) Last Admin: 12/23/16 09:37 Dose: 650 mg Aspirin (Ecotrin) 81 mg PO DAILY [facility] Last Admin: 12/24/16 09:22 Dose: 81 mg Clonidine HCl (Catapres-Tts3 0.3 Mg/24 Hr) 1 patch TD Q7D@1000 [facility] Last Admin: 12/23/16 09:27 Dose: 1 patch Clopidogrel Bisulfate (Plavix) 75 mg PO DAILY [facility] Last Admin: 12/24/16 09:16 Dose: 75 mg Famotidine (Pepcid) 40 mg PO HS [facility] Last Admin: 12/24/16 22:31 Dose: 40 mg Gabapentin (Neurontin) 600 mg PO TID [facility] PRN Reason: Protocol Last Admin: 12/24/16 17:06 Dose: 600 mg Hydralazine HCl (Apresoline) 50 mg PO Q8 [facility] Last Admin: 12/24/16 22:31 Dose: 50 mg Ceftriaxone Sodium (Rocephin 1 Gram Ivpb) 1 gm in 100 mls @ 100 mls/hr IVPB DAILY [facility] PRN Reason: Protocol Last Admin: 12/24/16 09:48 Dose: 100 mls/hr Insulin Detemir (Levemir) 30 unit SC HS [facility] Last Admin: 12/24/16 22:31 Dose: 30 unit Insulin Human Lispro (Humalog) 7 units SC AC [facility] Last Admin: 12/24/16 16:31 Dose: Not Given Insulin Human Regular (Humulin R Med) 0 units SC ACHS [facility] PRN Reason: Protocol Last Admin: 12/24/16 22:31 Dose: Not Given Labetalol HCl (Trandate) 400 mg PO TID [facility] Last Admin: 12/24/16 17:05 Dose: 400 mg Levothyroxine Sodium (Synthroid) 175 mcg PO 0600 [facility] Last Admin: 12/24/16 07:41 Dose: 175 mcg Lidocaine (Lidoderm) 1 ea TD DAILY PRN PRN Reason: back pain Ondansetron HCl (Zofran Inj) 4 mg IVP Q6H PRN PRN Reason: Nausea/Vomiting Last Admin: 12/23/16 09:26 Dose: 4 mg Polyethylene Glycol (Miralax) 17 gm PO DAILY PRN PRN Reason: Constipation Sertraline HCl (Zoloft) 50 mg PO DAILY [facility] Last Admin: 12/24/16 09:22 Dose: 50 mg Tamsulosin HCl (Flomax) 0.4 mg PO DAILY [facility] Last Admin: 12/24/16 09:22 Dose: 0.4 mg
[2016-12-25] MEDS: Levothyroxine 175 MCG TAB PO SCH (06:09)
[2016-12-25] MEDS: Insulin Lispro 1 UNITS/0.01 ML SC SCH ×3 (08:27→17:09)
[2016-12-25] MEDS: Insulin Reg-MEDIUM-Coverage SC SCH ×4 (08:27→21:50)
[2016-12-25] MEDS: cefTRIAXone 1 gm 1 GM/100 ML BAG IVPB SCH (09:06)
[2016-12-25] MEDS ORDERED: Insulin Detemir 100 units/ml Vial (Levemir) SC SCH (12:37)
--- NOTE | 2016-12-25 15:03 | PN ---
DATE: 12/25/2016 SUBJECTIVE: This is a 36-year-old male who was examined at his bedside. He was out of bed to chair and complaining of incontinence. He did fine yesterday with time voiding and [place] catheter placed for prevention of urine incontinence during sleep. He has multiple comorbidities including chronic hypertension, history of urinary incontinence in the setting of neurogenic bladder, insulin-dependent diabetes mellitus, spinal arthritis, peripheral neuropathy, gastroesophageal reflux disease, anemia of chronic disease, hypothyroidism, depression, chronic renal failure stage IV, and degenerative arthritis. At present his urine cultures are showing Proteus mirabilis sensitive to Rocephin and the patient is in need of physical therapy for reconditioning and gait training. PHYSICAL EXAMINATION VITAL SIGNS: Temperature of 98.3, respirations of 20, pulse of 81, and blood pressure of 119/70 with a pulse oximetry of 94% room air. HEENT: Head is normocephalic and atraumatic. Eyes: No icterus. Ears: Clear. Throat: Not injected. NECK: Supple. HEART: Regular S1 and S2. LUNGS: Clear. ABDOMEN: Obese and nontender without palpable organomegaly. No rebound and no guarding. No tenderness. No CVA tenderness. EXTREMITIES: Trace edema. SKIN: Without rash. NEUROLOGICAL: Unchanged. PSYCHOLOGICAL: Alert. VASCULAR: Legs warm to touch. LABORATORY DATA: White count of 7300, hemoglobin of 9.8, hematocrit of 30.2, and platelets of 359,000. Random blood sugar of 273. Urine culture; Proteus mirabilis sensitive to Rocephin. IMPRESSION AND PLAN: This 36-year-old male admitted with urinary tract infection, altered mental status and hypotension in the setting of a neurogenic bladder and multiple comorbidities as listed above. The plan at present is to continue hydralazine 50 mg p.o. q. 8 hours., clonidine 0.3 mg q. 24 hours. patch weekly, Ecotrin 81 mg p.o. daily, Flomax 0.4 mg at bed time, insulin Humalog will be increased from 7 to 10 units a.c. meals on schedule with regular low-dose insulin coverage a.c. meals for elevated blood sugars as per protocol. I have also told the patient his Levemir will be increased at bed time to 35 units given his uncontrolled hyperglycemia and elevated hemoglobin A1c, he said he reports as an outpatient. He also continues on MiraLax 17 g p.o. daily p.r.n. obstipation, Neurontin 600 mg p.o. t.i.d., Pepcid 40 mg at bed time , Plavix 75 mg daily, Synthroid 175 mcg daily, labetalol 400 mg p.o. t.i.d. and Zoloft 50 mg p.o. daily. I will attempt to get this patient placed on transitional care rehab, All of the above was discussed in detail with the patient and his nurse. Alcira Manzano MD MTDD
[2016-12-26] MEDS: Levothyroxine 175 MCG TAB PO SCH (06:28)
[2016-12-26 08:08] VITALS: RESP 20; TEMP 98; O2SAT 95
[2016-12-26] MEDS: Insulin Lispro 1 UNITS/0.01 ML SC SCH ×2 (08:54→12:25)
[2016-12-26] MEDS: Insulin Reg-MEDIUM-Coverage SC SCH ×2 (08:55→12:24)
[2016-12-26] MEDS: cefTRIAXone 1 gm 1 GM/100 ML BAG IVPB SCH (10:09)
[2016-12-26] MEDS ORDERED: Pneumococcal 23-Valent Vaccine IM ONE (13:09)
[2016-12-26] MEDS ORDERED: Influenza Vaccine 60 mcg/0.5 mL SYR (4YR UP) IM ONE (13:09)
[2016-12-26 13:31] VITALS: BP 117/74; PULSE 77
--- NOTE | 2016-12-27 03:12 | DS ---
FINAL DIAGNOSES: Altered mental status, improved; hypotension resolved; Proteus mirabilis urinary tract infection; chronic renal failure, stage IV; morbid obesity status post stroke, bilateral lower extremity chronic hemiparesis, deconditioning, peripheral neuropathy; chronic hypertension, atherosclerotic heart disease stable, status post myocardial infarction; neurogenic bladder; urinary incontinence; insulin-dependent diabetes mellitus; anemia of chronic disease; history of obstipation; gastroesophageal reflux disease, hypothyroidism, and depression. DISPOSITION: Home with family providing 24 hours supervision for this patient. The patient will continue to receive VNA services, home physical therapy and follow up with his primary care physician, Dr. Araseli Wakefield. I have advised him to have her recheck a urine culture upon completion of antibiotics. DISCHARGE DIET: Renal heart-healthy diabetic. DISCHARGE MEDICATIONS: Zoloft 50 mg p.o. daily, labetalol 400 mg p.o. t.i.d., Synthroid 175 mcg p.o. daily Keflex 250 mg p.o. q. 6 hours. x7 days, then stop. Plavix 75 mg p.o. daily, Pepcid 40 mg p.o. at bedtime, Neurontin 600 mg p.o. t.i.d., MiraLax 17 g p.o. daily p.r.n. obstipation, Lidoderm to lower back pain daily p.r.n., intractable pain, Levemir 35 units with subcutaneously at bedtime, Humalog 10 units subcutaneously a.c. meals t.i.d., Flomax 0.4 mg p.o. daily, Ecotrin 81 mg p.o. daily, Catapres-TTS three patch weekly, and hydralazine 50 mg p.o. q. 8 hours. SUMMARY: This 36-year-old male was admitted to [facility] after being brought to the ER for evaluation of altered mental status, hypotension and multiple comorbidities as listed above. The patient was noted to have anemia of chronic disease, normal white blood cell count. He was fluid resuscitated in the ER and had uncontrolled insulin-dependent diabetes mellitus in the setting of newly noted Proteus mirabilis urinary tract infection secondary to history of neurogenic bladder, Lira catheter and intermittent catheterizations in his past. BUN and creatinine was were stable from previous admission. The patient was initially treated with parenteral Rocephin and sensitivity reports showed the urinary tract infection was sensitive to Ancef and at the time of this dictation, the patient was recommended by physical therapy to be discharged to home with home physical therapy when medically stable. At the time of this discharge, his temperature is 98, respirations are 20, pulse is 75 and blood pressure is 117/74 with a pulse oximetry of 95% room air. LABORATORY DATA: His sodium was 139, potassium was 5.0, chloride was 109, bicarbonate was 20, BUN was 60, creatinine was 3.5, and blood sugar was 177. Liver function testing: Bilirubin of 0.4, AST of 18, ALT of 33, and alkaline phosphatase of 128. TSH was normal 2.88. White count of 7300, hemoglobin of 9.8, hematocrit of 30.2. DISCHARGE INSTRUCTIONS: The patient is discharged to home to the care of his family. He will follow up with his urologist regarding his urological needs and follow up urine culture upon completion of his urinary tract infection with Keflex. The patient was also reminded to continue with time voiding q. 2 hours. and to use a [place] catheter during the sleep time to prevent urinary continence and skin breakdown which was used at the [facility] during his hospital stay he also will continue to follow up with his co-consultants including ophthalmology regarding his diabetic retinopathy and macular degeneration. His overall prognosis though poor, remains stable at present. Greater than fifty minutes was spent in the care management and coordination for discharge planning today including review of treatment plan, establishing VNA and home physical therapy with social service reviewing of all medications and answering of all questions for this patient today. Alcira Manzano MD [facility]
== END 2016-12-26 15:58 | disposition home or self-care (01) | DRG 690 ==
LOC: ED 21:06 → ERH 12-23 01:00 → 5RSO 12-23 04:24
PROVIDERS: ADMIT Internal Medicine; ATTEND Internal Medicine
DX: N39.0 Urinary tract infection, site not specified (principal); B96.4 Proteus (mirabilis) (morganii) as the cause of diseases classified elsewhere; E10.22 Type 1 diabetes mellitus with diabetic chronic kidney disease; I13.0 Hypertensive heart and chronic kidney disease with heart failure and stage 1 through stage 4 chronic kidney disease, or unspecified chronic kidney disease; I50.9 Heart failure, unspecified; N18.4 Chronic kidney disease, stage 4 (severe); I69.359 Hemiplegia and hemiparesis following cerebral infarction affecting unspecified side; I25.10 Atherosclerotic heart disease of native coronary artery without angina pectoris; D63.8 Anemia in other chronic diseases classified elsewhere; E10.42 Type 1 diabetes mellitus with diabetic polyneuropathy; N31.9 Neuromuscular dysfunction of bladder, unspecified; M46.90 Unspecified inflammatory spondylopathy, site unspecified; K59.00 Constipation, unspecified; E10.65 Type 1 diabetes mellitus with hyperglycemia; F32.9 Major depressive disorder, single episode, unspecified; R32 Unspecified urinary incontinence; H35.30 Unspecified macular degeneration; E03.9 Hypothyroidism, unspecified; K21.9 Gastro-esophageal reflux disease without esophagitis; E66.01 Morbid (severe) obesity due to excess calories; Z68.36 Body mass index [BMI] 36.0-36.9, adult; I25.2 Old myocardial infarction; Z79.4 Long term (current) use of insulin; Z79.02 Long term (current) use of antithrombotics/antiplatelets; Z79.82 Long term (current) use of aspirin; Z87.11 Personal history of peptic ulcer disease; Z87.440 Personal history of urinary (tract) infections

== ENCOUNTER 2017-08-30 11:27 | Inpatient (IN) | payer MEDICARE, MEDICAID ==
[2017-08-30 11:41] VITALS: BMI 36.1
--- NOTE | 2017-08-30 12:08 | ED PDOC ---
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 Patient reports sitting while getting a hair cut when he suddenly lost vision in both of his eyes. The left eye has improved but he still cannot see out of his right eye. Patient was evaluated by his doctor, Dr. Araseli Wakefield, yesterday who believes the patient may have had TIA. Recommended Emergency department evaluation and specific tests to be run. Patient denies any fever, chills, chest pain, shortness of breath, nausea, vomiting, diarrhea, urinary symptoms, back pain, neck pain, headache, dizziness, or any other complaints. [facility] Time/Duration: < week (5 days) Symptom Onset: Sudden Symptom Course: Improving Activities at Onset: Rest Past Medical History - Provider Review Nursing Documentation Reviewed: Yes - Infectious Disease Hx of Infectious Diseases: None - Tetanus Immunization Tetanus Immunization: Unknown - Cardiac Hx Cardiac Disorders: Yes Hx SD: Yes Hx Hypertension: Yes - Pulmonary Hx Respiratory Disorders: No - Neurological Hx Neurological Disorder: Yes HX Cerebrovascular Accident: Yes (Bilateral Lower extremities flaccid) Hx Transient Ischemic Attacks (TIA): Yes - HEENT Hx HEENT Disorder: Yes (wears glasses) Hx Macular Degeneration: Yes - Renal Hx Renal Disorder: Yes Hx Pyelonephritis: Yes - Endocrine/Metabolic Hx Endocrine Disorders: Yes Hx Diabetes Mellitus Type 1: Yes Hx Hypothyroidism: Yes - Hematological/Oncological Hx Blood Disorders: No - Integumentary Hx Dermatological Disorder: No - Musculoskeletal/Rheumatological Hx Musculoskeletal Disorders: Yes Hx Back Pain: Yes Hx Falls: Yes - Gastrointestinal Hx Gastrointestinal Disorders: Yes (colitis) - Genitourinary/Gynecological Hx Genitourinary Disorders: Yes Hx Incontinence: Yes Hx Urinary Tract Infection: Yes - Psychiatric Hx Psychophysiologic Disorder: Yes Hx Anxiety: Yes Hx Substance Use: No - Past Surgical History Past Surgical History: No Previous - Surgical History Other/Comment: bladder surgery - Anesthesia Hx Anesthesia: Yes Hx Anesthesia Reactions: No Hx Malignant Hyperthermia: No - Suicidal Assessment Feels Threatened In Home Enviroment: No Family/Social History - Physician Review Nursing Documentation Reviewed: Yes Family/Social History: Unknown Family HX Smoking Status: Never Smoked Hx Alcohol Use: No Hx Substance Use: No Hx Substance Use Treatment: No Allergies/Home Meds Allergies/Adverse Reactions: Allergies sulfamethoxazole [From Bactrim] Allergy (Verified 01/16/17 13:45) ANAPHYLAXIS trimethoprim [From Bactrim] Allergy (Verified 01/16/17 13:45) ANAPHYLAXIS Home Medications: Home Meds Medication Instructions Recorded Confirmed Aspirin [Ecotrin] 81 mg PO DAILY 03/04/16 01/16/17 Pantoprazole Sodium [Protonix] 40 mg PO BID 03/04/16 01/16/17 Sertraline HCl 50 mg PO DAILY 03/04/16 01/16/17 Tamsulosin [Flomax] 0.4 mg PO DAILY 03/04/16 01/16/17 Furosemide [Lasix] 20 mg PO DAILY PRN 07/12/16 01/16/17 Acetaminophen/Oxycodone Hydr 10 - 325 mg PO Q6H 09/14/16 01/16/17 [Percocet 10/325 mg Tab] Lorazepam [Ativan] 0.5 mg PO BID 09/14/16 01/16/17 traMADol [Ultram] 50 mg PO DIN PRN 09/14/16 01/16/17 Review of Systems - Review of Systems Constitutional: absent: Fevers, Night Sweats Eyes: Vision Changes (cannot see out of right eye) Respiratory: absent: SOB Cardiovascular: absent: Chest Pain Gastrointestinal: absent: Diarrhea, Nausea, Vomiting Genitourinary Male: absent: Dysuria Musculoskeletal: absent: Back Pain, Neck Pain Skin: absent: Rash Neurological: absent: Headache, Dizziness Physical Exam Vital Signs Reviewed: Yes Vital Signs Temp Pulse Resp BP Pulse Ox 08/30/17 14:51 69 18 159/79 H 95 08/30/17 11:39 98.2 F 74 16 167/78 H 96 Temperature: Afebrile Blood Pressure: Hypertensive Pulse: Regular Respiratory Rate: Normal Appearance: Positive for: Well-Appearing, Non-Toxic, Comfortable Pain Distress: None Mental Status: Positive for: Alert and Oriented X 3 - Systems Exam Head: Present: Atraumatic, Normocephalic Pupils: Present: PERRL Extroacular Muscles: Present: EOMI Conjunctiva: Present: Normal Mouth: Present: Moist Mucous Membranes Neck: Present: Normal Range of Motion Respiratory/Chest: Present: Clear to Auscultation, Good Air Exchange. No: Respiratory Distress, Accessory Muscle Use Cardiovascular: Present: Regular Rate and Rhythm, Normal S1, S2. No: Murmurs Abdomen: No: Tenderness, Distention, Peritoneal Signs Back: Present: Normal Inspection Upper Extremity: Present: Normal Inspection. No: Cyanosis, Edema Lower Extremity: Present: Normal Inspection. No: Edema Neurological: Present: GCS=15, CN II-XII Intact, Speech Normal Skin: Present: Warm, Dry, Normal Color. No: Rashes Psychiatric: Present: Alert, Oriented x 3, Normal Insight, Normal Concentration Medical Decision Making ED Course and Treatment: 08/30/17 12:09 Impression: 36 year old male presents to the Emergency department complaining of vision issues to bilateral eyes, right worse than left. Plan: -- CT scan of the head -- Chest xray -- Carotid and Vertebral Duplex -- EKG -- Urinalysis -- VBG -- Labs -- Reassess and disposition Prior Visits: Notes and results from previous visits were reviewed. Patient was last seen in the emergency department on 01/16/17, was diagnosed with Uncontrolled hypertension, Vomiting, Generalized weakness, and was admitted to the hospital. Progress Notes: 08/30/17 12:34 Discussed case in detail with Dr. Matthews who states patient's vision is not well. Patient can only perceive light in the right eye and only perceive motion in the left eye. Dr. Matthews states patient's vision was significantly better 10 months ago. 08/30/17 13:59 Discussed case in detail with Kamaljit from MRI. Patient has a bladder pace maker and so an MRI cannot be performed. Will order CT scans instead. 08/30/17 14:14 Unable to use contrast due to Creatinine measured to be 4.6. 08/30/17 14:51 Discussed case in detail with Dr. Roach who requests that the patient be placed on remote telemetry. Dr. Roach will make the necessary consults with nephrology , neurology, and ophthalmology. Pending brain CT scan results. - Lab Interpretations Narrative Lab Interpretation (Text): 08/30/2017 13:35:56 Chest Xray FINDINGS: LUNGS: No active pulmonary disease. PLEURA: No significant pleural effusion identified, no pneumothorax apparent. CARDIOVASCULAR: Normal. OSSEOUS STRUCTURES: No significant abnormalities. VISUALIZED UPPER ABDOMEN: Normal. OTHER FINDINGS: None. IMPRESSION: No active disease. 08/30/2017 14:46:56 Bilateral carotid artery duplex ultrasound FINDINGS: There is mild smooth hypoechoic plaque noted at the carotid bifurcations bilaterally. The peak systolic velocity in the proximal right internal carotid artery is 81 cm/sec. This corresponds to a 0-19 percent proximal right ICA stenosis. Normal systolic velocities are noted in the proximal right external carotid artery. There is antegrade flow in the right vertebral artery. The peak systolic velocity in the proximal left internal carotid artery is 80 cm /sec. This corresponds to a 0-19 percent proximal left ICA stenosis. Normal systolic velocities are noted in the proximal left external carotid artery. There is antegrade flow in the left vertebral artery. IMPRESSION: 1. Bilateral 0-19 percent proximal ICA stenoses. 2. Antegrade flow in both vertebral arteries. 08/30/2017 14:57:10 CT HEAD WITHOUT CONTRAST. FINDINGS: HEMORRHAGE: No intracranial hemorrhage. BRAIN: No mass effect or edema. No atrophy or chronic microvascular ischemic changes. VENTRICLES: Unremarkable. No hydrocephalus. CALVARIUM: Unremarkable. PARANASAL SINUSES: Unremarkable as visualized. No significant inflammatory changes. MASTOID AIR CELLS: Unremarkable as visualized. No inflammatory changes. OTHER FINDINGS: None. IMPRESSION: No acute findings Lab Results: 08/30/17 12:53 08/30/17 12:53 Lab Results 08/30/17 12:53: Sodium 142, Chloride 112 H, Potassium 4.9, Carbon Dioxide 21, Anion Gap 14, BUN 59 H, Creatinine 4.6 H, Est GFR ( Amer) 18, Est GFR ( Non-Af Amer) 15, Random Glucose 83, Calcium 7.9 L, Total Bilirubin 0.2, AST 10 L D, ALT 21, Alkaline Phosphatase 78, Lactate Dehydrogenase 486, Total Creatine Kinase 157, Troponin I 0.01 D, Total Protein 5.1 L, Albumin 2.7 L, Globulin 2.4 , Albumin/Globulin Ratio 1.1, Triglycerides 39, Cholesterol 151, LDL Cholesterol Direct 84, HDL Cholesterol 47 08/30/17 12:53: pO2 69 H, VBG pH 7.23 L, VBG pCO2 54.0, VBG HCO3 22.6, VBG Total CO2 24.3, VBG O2 Sat (Calc) 96.9 H, VBG Base Excess -5.5 L, VBG Potassium 4.9, Sodium 141.0, Chloride 114.0 H, Glucose 84, Lactate 1.1, FiO2 21.0, Venous Blood Potassium 4.9 08/30/17 12:53: PT 11.4, INR 0.99, APTT 26.0 08/30/17 12:53: WBC 7.1, RBC 2.74 L, Hgb 7.9 L D, Hct 24.3 L, MCV 88.7, MCH 28.8 , MCHC 32.5, RDW 14.4, Plt Count 369, MPV 9.8, Gran % 56.7, Lymph % (Auto) 26.0 , [place] % (Auto) 11.2 H, Eos % (Auto) 5.4 H, Baso % (Auto) 0.7, Gran # 4.01, Lymph # (Auto) 1.8, [place] # (Auto) 0.8 H, Eos # (Auto) 0.4, Baso # (Auto) 0.05 - RAD Interpretation Radiology Orders: 08/30/17 12:08 CHEST PORTABLE [RAD] Stat 08/30/17 12:12 CAROTID & VERTEBRAL DUPLEX [US] Stat 08/30/17 13:59 HEAD W/O CONTRAST [CT] Stat - EKG Interpretation EKG Interpretation (Text): 08/30/17 12:34 EKG: Ordered, reviewed, and independently interpreted the EKG. Rate : 70 BPM Rhythm : NSR Interpretation : No ST-segment elevations or depressions, no T-wave inversions, normal intervals. Interpreted by ED Physician: Yes Type: 12 lead EKG - Medication Orders Current Medication Orders: Aspirin (Ecotrin) 81 mg PO DAILY PARAG Clonidine HCl (Catapres-Tts3 0.3 Mg/24 Hr) 1 patch TD Q7D@1000 PARAG Docusate Sodium (Colace) 100 mg PO BID PARAG Gabapentin (Neurontin) 600 mg PO TID PARAG PRN Reason: Protocol Hydralazine HCl (Apresoline) 50 mg PO Q8 PARAG Sodium Chloride (Sodium Chloride 0.45%) 1,000 mls @ 75 mls/hr IV .[id number] [facility] Insulin Detemir (Levemir) 35 unit SC HS PARAG Insulin Human Lispro (Humalog Low) 0 units SC ACHS PARAG PRN Reason: Protocol Insulin Human Lispro (Humalog) 10 units SC AC PARAG Labetalol HCl (Trandate) 400 mg PO TID PARAG Levothyroxine Sodium (Synthroid) 175 mcg PO 0600 PARAG Oxycodone/Acetaminophen (Percocet 10/325 Mg Tab) 1 tab PO Q6H PRN PRN Reason: Pain, moderate (4-7) Pantoprazole Sodium (Protonix Inj) 40 mg IVP DAILY PARAG Polyethylene Glycol (Miralax) 17 gm PO DAILY PRN PRN Reason: Constipation Tamsulosin HCl (Flomax) 0.4 mg PO DAILY PARAG Zolpidem Tartrate (Ambien) 5 mg PO HS PRN; Protocol PRN Reason: Insomnia NIHSS Scale ([place]) Time Performed: 12:09 - How Severe is the Stoke Baseline Level of Consciousness: 0=Alert LOC to Questions: 0=Both comments correct LOC to commands: 0=Obeys both correctly Best Gaze: 0=Normal Visual: 0=No visual loss (unable to test; patient can only detect light in right eye and movement in left eye) Facial: 0=Normal Motor Arm - Left: 0=No drift Motor Arm - Right: 0=No drift Motor Leg - Left: 0=No drift Motor Leg - Right: 0=No drift Limb Ataxia: 0=Absent Sensory: 0=Normal Best Language: 0=No aphasia Dysarthia: 0=Normal articulation Extinction & Inattention (Neglect): 0=Normal, no object Score: 0 Risk Level: No Stroke Risk rTPA Inclusion/Exclusion - Refusal of Treatment Patient Refused Treatment: No - Inclusion Criteria for Altepase Patient is 18 years or Older: Yes The Clinical Diagnosis of Ischemic Stroke That is Causing a Potentially Disabling Neurological Deficit: No Time of Onset is Well Established to be Less Than 270 Minute Before Treatment Would Begin: No Risk/Benefit Discussed With Patient/Family Member Present: No - Exclusion Criteria for Altepase Uncontrolled Hypertension at Time of Treatment (Systolic BP above 185 or Diastolic BP above 110 mmHg): No Active Internal Bleeding: No Known Bleeding Diathesis Including but Not Limited to: Platelets Below 100,000/ mm,PTT Above 40 sec After Heparin Use, Current Use of Oral Anitcoagulant With INR Greater Than 1.7 or PT Greater Than 15 secs: No Evidence of an Intracranial Hemorrhage: No Evidence of Major Acute Infarct With Signs Greater Than 1/3 MCA Territory: No Suspicion of Subarachnoid Hemorrhage on Pretreatment Evaluation Even if CT Head Negative For Hemorrhage: No - Warning to TPA With Conditions Following Conditions Weighed Against Anticipated Benefit: Yes Condition: Care Team Unable to Determine Eligibilty Additional Condition (For 3-4.5 Hour Window): Prior Stroke and Diabetes - Scribe Statement The provider has reviewed the documentation as recorded by the Scribe Jaziel Chi All medical record entries made by the Scribe were at my direction and personally dictated by me. I have reviewed the chart and agree that the record accurately reflects my personal performance of the history, physical exam, medical decision making, and the department course for this patient. I have also personally directed, reviewed, and agree with the discharge instructions and disposition. Disposition/Present on Arrival - Present on Arrival Any Indicators Present on Arrival: No History of DVT/PE: No History of Uncontrolled Diabetes: No Urinary Catheter: Yes History of Decub. Ulcer: No History Surgical Site Infection Following: None - Disposition Have Diagnosis and Disposition been Completed?: Yes Diagnosis: Visual loss, Acute kidney injury, Chronic kidney disease, CAD (coronary artery disease), Hyperglycemia due to type 1 diabetes mellitus, Acute on chronic renal failure Disposition: HOSPITALIZED Disposition Time: 15:05 Patient Plan: Admission, Telemetry Patient Problems: Current Active Problems Problem Status Onset Acute kidney injury Acute Acute on chronic renal failure Acute CAD (coronary artery disease) Acute Chronic kidney disease Acute Visual loss Acute Type 1 diabetes mellitus with hyperglycemia Chronic Condition: FAIR
[2017-08-30 13:08] LABS: VENOUS BLOOD GAS BASE EXCESS -5.5 mmol/L (0.0-2.0); VENOUS BLOOD GAS PO2 69 mm/Hg (30-55); VENOUS BLOOD PH 7.23 (7.32-7.43)
[2017-08-30 13:11] LABS: BASO # 0.05 K/mm3 (0.0-2.0); BASO % 0.7 % (0.0-3.0); EOS # 0.4 (0.0-0.7); EOS % 5.4 % (1.5-5.0); GRAN # 4.01 (1.4-6.5); GRAN % 56.7 % (50.0-68.0); HEMOGLOBIN 7.9 g/dL (14.0-18.0); LYMPH # 1.8 (1.2-3.4); MEAN CELL VOLUME 88.7 fl (80.0-105.0); MEAN CORPUSCULAR HEMOGLOBIN 28.8 pg (25.0-35.0); MEAN CORPUSCULAR HGB CONC 32.5 g/dl (31.0-37.0); MEAN PLATELET VOLUME 9.8 fl (7.0-11.0); MONO # 0.8 (0.1-0.6); MONO % 11.2 % (1.0-6.0); RBC 2.74 10^6/uL (3.5-6.1); RED CELL DISTRIBUTION WIDTH 14.4 % (11.5-14.5); WHITE BLOOD COUNT 7.1 10^3/ul (4.5-11.0)
[2017-08-30 13:24] LABS: INR 0.99 (0.93-1.08); PROTHROMBIN TIME 11.4 SECONDS (9.4-12.5)
--- NOTE | 2017-08-30 13:37 | RAD ---
HISTORY: Visual Changes COMPARISON: 01/16/2017 FINDINGS: LUNGS: No active pulmonary disease. PLEURA: No significant pleural effusion identified, no pneumothorax apparent. CARDIOVASCULAR: Normal. OSSEOUS STRUCTURES: No significant abnormalities. VISUALIZED UPPER ABDOMEN: Normal. OTHER FINDINGS: None. IMPRESSION: No active disease.
[2017-08-30 13:54] LABS: ALB/GLOB RATIO 1.1 (1.1-1.8); ALBUMIN 2.7 g/dL (3.0-4.8); CALCIUM 7.9 mg/dL (8.4-10.5)
[2017-08-30 13:56] LABS: TROPONIN I 0.01 ng/mL
--- NOTE | 2017-08-30 14:48 | US ---
PROCEDURE: Bilateral carotid artery duplex ultrasound HISTORY: Carotid stenosis possible TIA PHYSICIAN(S): Andriy Gomez MD. TECHNIQUE: Duplex sonography and color-flow Doppler were used to evaluate the carotid bifurcations and limited segments of the vertebral arteries bilaterally. FINDINGS: There is mild smooth hypoechoic plaque noted at the carotid bifurcations bilaterally. The peak systolic velocity in the proximal right internal carotid artery is 81 cm/sec. This corresponds to a 0-19 percent proximal right ICA stenosis. Normal systolic velocities are noted in the proximal right external carotid artery. There is antegrade flow in the right vertebral artery. The peak systolic velocity in the proximal left internal carotid artery is 80 cm/sec. This corresponds to a 0-19 percent proximal left ICA stenosis. Normal systolic velocities are noted in the proximal left external carotid artery. There is antegrade flow in the left vertebral artery. IMPRESSION: 1. Bilateral 0-19 percent proximal ICA stenoses. 2. Antegrade flow in both vertebral arteries.
--- NOTE | 2017-08-30 14:54 | CP.PCM.HP ---
<Demetria Headley - Last Filed: 08/30/17 16:36> History of Present Illness - History of Present Illness History of Present Illness: CC: "My vision is blurry" HPI: Patient is a 36 year old male with past medical history of DM type 1 with neuropathy, Multiple CVA's, CKD, HTN, DKA, Anxiety presents to the ED for visual changes. Patient states that his vision has been progressively getting worse over the past few months. He states that his vision was the worst on Sunday when his right eye "went black" and his left eye was blurry. Patient was seen by his opthomologist yesterday who states that he may have had a TIA and should go to the hospital for MRI. Patient currently states that in the right eye he sees shadows, its painful and blurry. Left eye is blurry. He also reports that he has a chronic lópez that was placed after his multiple CVAs 3 years ago secondary after being diagnosed with neurogenic bladder. The lópez catheter has been in for 6 weeks and needs to be exchanged. He offers no other complaints at this time. Denies headaches, dizziness, cp, palpitations, sob, abdominal pain, urinary symptoms, admits to chronic constipation. Last bowel movement was on Sunday. Denies any black tarry stools, blood in stool, pain with defecation. PMD: Dr Wakefield Allergies: Sulfamethoxazole, trimethoprim Medications: See MAR Medical History: Multiple CVAs, Chronic Kidney Disease, DM Type 1 with neuropathy, Diabetic retinopathy, Neurogenic bladder, HTN, Anxiety, Hx of GA Surgical History: Left eye surgery; Bladder pacemaker Social History: Denies alcohol, tobacco, drug use; patient is bed bound, uses a wheelchair; patient has a home health aid Family History: Diabetes Mellitus, COPD, Anxiety Present on Admission - Present on Admission Any Indicators Present on Admission: Yes History of Uncontrolled Diabetes: Yes Past Patient History - Infectious Disease Hx of Infectious Diseases: None - Tetanus Immunizations Tetanus Immunization: Unknown - Past Medical History & Family History Past Medical History?: Yes - Past Social History Smoking Status: Never Smoked - CARDIAC Hx Cardiac Disorders: Yes Hx Heart Attack: Yes Hx Hypertension: Yes - PULMONARY Hx Respiratory Disorders: No - NEUROLOGICAL Hx Neurological Disorder: Yes HX Cerebrovascular Accident: Yes (Bilateral Lower extremities flaccid) Hx Transient Ischemic Attacks (TIA): Yes - HEENT Hx HEENT Problems: Yes (wears glasses) Hx Macular Degeneration: Yes - RENAL Hx Chronic Kidney Disease: Yes Hx Pyelonephritis: Yes - ENDOCRINE/METABOLIC Hx Endocrine Disorders: Yes Hx Diabetes Mellitus Type 1: Yes Hx Hypothyroidism: Yes - HEMATOLOGICAL/ONCOLOGICAL Hx Blood Disorders: No - INTEGUMENTARY Hx Dermatological Problems: No - MUSCULOSKELETAL/RHEUMATOLOGICAL Hx Musculoskeletal Disorders: Yes Hx Back Pain: Yes Hx Falls: Yes - GASTROINTESTINAL Hx Gastrointestinal Disorders: Yes (colitis) - GENITOURINARY/GYNECOLOGICAL Hx Genitourinary Disorders: Yes Hx Incontinence: Yes Hx Urinary Tract Infection: Yes - PSYCHIATRIC Hx Psychophysiologic Disorder: Yes Hx Anxiety: Yes Hx Substance Use: No - SURGICAL HISTORY Other/Comment: bladder surgery - ANESTHESIA Hx Anesthesia: Yes Hx Anesthesia Reactions: No Hx Malignant Hyperthermia: No Meds Allergies/Adverse Reactions: Allergies Allergy/AdvReac Type Severity Reaction Status Date / Time sulfamethoxazole Allergy ANAPHYLAXIS Verified 01/16/17 13:45 [From Bactrim] trimethoprim [From Bactrim] Allergy ANAPHYLAXIS Verified 01/16/17 13:45 Physical Exam - Constitutional Appears: Well, Non-toxic, No Acute Distress, Chronically Ill - Head Exam Head Exam: ATRAUMATIC, NORMAL INSPECTION, NORMOCEPHALIC - Eye Exam Eye Exam: EOMI, Normal appearance Pupil Exam: PERRL - ENT Exam ENT Exam: Mucous Membranes Moist - Neck Exam Neck exam: Positive for: Full Rom - Respiratory Exam Respiratory Exam: Clear to Auscultation Bilateral, NORMAL BREATHING PATTERN. absent: Rales, Rhonchi, Wheezes - Cardiovascular Exam Cardiovascular Exam: REGULAR RHYTHM, +S1, +S2 - GI/Abdominal Exam GI & Abdominal Exam: Normal Bowel Sounds, Soft. absent: Guarding, Rebound, Rigid, Tenderness - Rectal Exam Rectal Exam: Deferred - Extremities Exam Extremities exam: Positive for: pedal edema (+2 pitting edema bilaterally), pedal pulses present Additional comments: Bilateral foot drop Decreased sensation in both feet - Back Exam Back exam: NORMAL INSPECTION - Neurological Exam Neurological exam: Alert, Oriented x3 - Expanded Neurological Exam Expanded Sensory exam: Upper Extremity Light Touch: Abnormal Left, Abnormal Right Neuro motor strength exam: Left Upper Extremity: 5, Right Upper Extremity: 5, Left Lower Extremity: 0, Right Lower Extremity: 0 - Psychiatric Exam Psychiatric exam: Normal Affect, Normal Mood - Skin Skin Exam: Dry, Normal Color, Warm Results - Vital Signs Recent Vital Signs: Last Vital Signs Temp 98.2 F 08/30/17 11:39 Pulse 69 08/30/17 14:51 Resp 18 08/30/17 14:51 BP 159/79 H 08/30/17 14:51 Pulse Ox 95 08/30/17 14:51 - Labs Result Diagrams: 08/30/17 12:53 08/30/17 12:53 Labs: Laboratory Results - last 24 hr 08/30/17 08/30/17 08/30/17 12:53 12:53 12:53 WBC 7.1 RBC 2.74 L Hgb 7.9 L D Hct 24.3 L MCV 88.7 MCH 28.8 MCHC 32.5 RDW 14.4 Plt Count 369 MPV 9.8 Gran % 56.7 Lymph % (Auto) 26.0 Burke % (Auto) 11.2 H Eos % (Auto) 5.4 H Baso % (Auto) 0.7 Gran # 4.01 Lymph # (Auto) 1.8 Burke # (Auto) 0.8 H Eos # (Auto) 0.4 Baso # (Auto) 0.05 PT 11.4 INR 0.99 APTT 26.0 pO2 69 H VBG pH 7.23 L VBG pCO2 54.0 VBG HCO3 22.6 VBG Total CO2 24.3 VBG O2 Sat (Calc) 96.9 H VBG Base Excess -5.5 L VBG Potassium 4.9 Sodium 141.0 Chloride 114.0 H Glucose 84 Lactate 1.1 FiO2 21.0 Potassium Carbon Dioxide Anion Gap BUN Creatinine Est GFR ( Amer) Est GFR (Non-Af Amer) Random Glucose Calcium Total Bilirubin AST ALT Alkaline Phosphatase Lactate Dehydrogenase Total Creatine Kinase Troponin I Total Protein Albumin Globulin Albumin/Globulin Ratio Triglycerides Cholesterol LDL Cholesterol Direct HDL Cholesterol Venous Blood Potassium 4.9 08/30/17 12:53 WBC RBC Hgb Hct MCV MCH MCHC RDW Plt Count MPV Gran % Lymph % (Auto) Burke % (Auto) Eos % (Auto) Baso % (Auto) Gran # Lymph # (Auto) Burke # (Auto) Eos # (Auto) Baso # (Auto) PT INR APTT pO2 VBG pH VBG pCO2 VBG HCO3 VBG Total CO2 VBG O2 Sat (Calc) VBG Base Excess VBG Potassium Sodium 142 Chloride 112 H Glucose Lactate FiO2 Potassium 4.9 Carbon Dioxide 21 Anion Gap 14 BUN 59 H Creatinine 4.6 H Est GFR ( Amer) 18 Est GFR (Non-Af Amer) 15 Random Glucose 83 Calcium 7.9 L Total Bilirubin 0.2 AST 10 L D ALT 21 Alkaline Phosphatase 78 Lactate Dehydrogenase 486 Total Creatine Kinase 157 Troponin I 0.01 D Total Protein 5.1 L Albumin 2.7 L Globulin 2.4 Albumin/Globulin Ratio 1.1 Triglycerides 39 Cholesterol 151 LDL Cholesterol Direct 84 HDL Cholesterol 47 Venous Blood Potassium Assessment & Plan - Assessment and Plan (Free Text) Assessment: A/P: Patient is a 36 year old male with past medical history of mulitple CVA's, DM, CKD presents to the ED for changes in vision, CT head negative, patient admitted to Telemetry for further management. Bilateral blurry vision (Rule out TIA vs CVA) -Stable, afebrile -Monitor on telemetry -Patient had a history of multiple CVAs in the past -CT head: negative, official read pending -Carotid US showed bilateral 0-19 percent proximal ICA stenosis, antegrade flow in both vertebral arteries -MRI brain could not be done due to presence of bladder pacemaker -Continue Aspirin, will need to confirm if on Plavix with pharmacy before resuming -Neurology on consult, help appreciated -Ophthalmology on consult, help appreciated (message left with answering service ) -Physical Therapy on consult, help appreciated Normacytic Anemia -Likely secondary to chronic disease -Hg 7.9 on admission, asymptomatic -F/U Iron, TIBC, retic count, Vitamin B12/Folate, ferritin -F/U stool occult Acute on Chronic Kidney Disease -Baseline Cr 2-3 -BUN/CR on admission 59/4.6 -Will start IV Fluid Hydration 1/2 NS @ 75cc/hr -F/U urine sodium, urine urea, urine creatinine -Nephro on consult, help appreciated History of Hypertension -Continue home medications History of GA -Continue Aspirin 81mg PO daily -Will confirm Plavix with pharmacy before resuming -EKG showed NSR -F/U lipid panel Diabetes Mellitus Type 1/Peripheral Neuropathy -Random glucose within normal range -Will f/u HgA1c -Low dose ISS, accuchecks ACHS -Humalog 10 units SC AC, Levemir 35 units HS -Gabapentin 600mg PO TID CHF (diastolic dysfunction)/Bilateral Lower Extremity Swelling -Lower extremity dopplers ordered to r/o DVT -Last echo 07/2016: borderline concentric left ventricular hypertrophy, normal LVEF, grade I abnormal relaxation pattern History of Neurogenic Bladder with Chronic López -S/P bladder pacemaker -López catheter last changed 6 weeks ago -Will reinsert new lópez -Continue Flomax 0.4mg PO daily -F/u urinalysis, urine culture History of Hypothyroidism -Continue home synthroid -F/U TSH/Free T4 Chronic Constipation -Last bowel movement was on Sunday -Colace 100mg PO BID -Miralax 17gm PO daily prn constipation GI/DVT -Protonix 40mg IV daily -SCDs Plan discussed with Dr Roach <Sierra Roach - Last Filed: 08/30/17 17:20> Results - Vital Signs Recent Vital Signs: Last Vital Signs Temp 98.2 F 08/30/17 11:39 Pulse 69 08/30/17 14:51 Resp 18 08/30/17 14:51 BP 159/79 H 08/30/17 14:51 Pulse Ox 95 08/30/17 14:51 - Labs Result Diagrams: 08/30/17 12:53 08/30/17 12:53 Labs: Laboratory Results - last 24 hr 08/30/17 08/30/17 08/30/17 16:50 16:50 16:51 POC Glucose (mg/dL) 108 Iron 56 Triglycerides 39 Cholesterol 151 HDL Cholesterol 45 Attending/Attestation - Attestation I have personally seen and examined this patient.: Yes I have fully participated in the care of the patient.: Yes I have reviewed all pertinent clinical information: Yes Notes (Text): 08/30/17 17:15 36 year old male with past medical history of multiple CVAs, diabetes, hypertension and CKD who presented with complaint of worsening vision for the past few days. He was seen by his centrifugal spinner yesterday who recommendation inpatient evaluation. CT head and carotid dopplers are negative for acute findings. MRI brain is not able to be done due to presence of bladder pacemaker. Neurology, ophthalmology and PT evaluation are requested. He is on aspirin and statin. He was also found to have acute on chronic renal failure and worsening anemia, possible anemia of chronic renal disease. Nephrology evaluation is requested. Anemia workup is ordered. Continue with iv fluids and monitoring of renal function closely. Sierra Roach MD Hospitalist.
--- NOTE | 2017-08-30 14:58 | CT ---
PROCEDURE: CT HEAD WITHOUT CONTRAST. HISTORY: Visual Loss Sunday COMPARISON: 01/16/2017 TECHNIQUE: Axial computed tomography images were obtained through the head/brain without intravenous contrast. Radiation dose: Total exam DLP = 873 mGy-cm. This CT exam was performed using one or more of the following dose reduction techniques: Automated exposure control, adjustment of the mA and/or kV according to patient size, and/or use of iterative reconstruction technique. FINDINGS: HEMORRHAGE: No intracranial hemorrhage. BRAIN: No mass effect or edema. No atrophy or chronic microvascular ischemic changes. VENTRICLES: Unremarkable. No hydrocephalus. CALVARIUM: Unremarkable. PARANASAL SINUSES: Unremarkable as visualized. No significant inflammatory changes. MASTOID AIR CELLS: Unremarkable as visualized. No inflammatory changes. OTHER FINDINGS: None. IMPRESSION: No acute findings
[2017-08-30] MEDS ORDERED: POLYETHYLENE GLYCOL 3350 17 GM/Dose PACKET PO PRN (15:57)
[2017-08-30] MEDS ORDERED: Sodium Chloride 0.45% 1,000 ML IV SCH (16:15)
--- NOTE | 2017-08-30 16:25 | CARD ---
APPROVED REPORT EKG Measurement Heart [id number] <Conclusion> Normal sinus rhythm Normal ECG
[2017-08-30 17:06] LABS: HDL CHOLESTEROL 45 mg/dL (29-60); IRON 56 ug/dL (45-180)
[2017-08-30 17:15] LABS: % IRON SATURATION 23 % (20-55); TOTAL IRON BINDING CAPACITY 248 ug/dL (261-462)
[2017-08-30 17:17] LABS: LDL CHOLESTEROL 84 mg/dL (0-129)
[2017-08-30] MEDS: Insulin Lispro (humaLOG) LOW Coverage SC SCH ×2 (17:21→21:51)
[2017-08-30 17:26] LABS: FREE T4 1.06 ng/dL (0.78-2.19)
[2017-08-30] MEDS: Insulin Lispro 1 UNITS/0.01 ML SC SCH (17:28)
[2017-08-30 21:37] LABS: FERRITIN 28.3 ng/mL
[2017-08-30] MEDS ORDERED: Insulin Detemir 100 units/ml Vial (Levemir) SC SCH (22:00)
[2017-08-30 22:08] LABS: FOLATE 8.4 ng/mL
[2017-08-31] MEDS: Levothyroxine 175 MCG TAB PO SCH (05:13)
[2017-08-31 06:20] LABS: BASO # 0.07 K/mm3 (0.0-2.0); BASO % 0.9 % (0.0-3.0); EOS # 0.4 (0.0-0.7); EOS % 5.1 % (1.5-5.0); GRAN # 4.98 (1.4-6.5); GRAN % 65.7 % (50.0-68.0); HEMOGLOBIN 8.3 g/dL (14.0-18.0); LYMPH # 1.6 (1.2-3.4); LYMPH % 20.4 % (22.0-35.0); MEAN CORPUSCULAR HEMOGLOBIN 28.5 pg (25.0-35.0); MEAN CORPUSCULAR HGB CONC 32.4 g/dl (31.0-37.0); MEAN PLATELET VOLUME 9.7 fl (7.0-11.0); MONO # 0.6 (0.1-0.6); MONO % 7.9 % (1.0-6.0); RBC 2.91 10^6/uL (3.5-6.1); RED CELL DISTRIBUTION WIDTH 14.2 % (11.5-14.5); WHITE BLOOD COUNT 7.6 10^3/ul (4.5-11.0)
[2017-08-31 07:00] LABS: ALBUMIN 2.9 g/dL (3.0-4.8); CALCIUM 8.2 mg/dL (8.4-10.5)
[2017-08-31] MEDS: Ferrous Sulfate 300 mg/5 mL Liq UD PO SCH ×3 (09:08→17:23)
[2017-08-31] MEDS: Insulin Lispro (humaLOG) LOW Coverage SC SCH ×2 (09:10→14:16)
[2017-08-31] MEDS: Insulin Lispro 1 UNITS/0.01 ML SC SCH ×2 (09:10→14:16)
[2017-08-31] MEDS: Oxycodone/Acetaminophen 10/325 mg Tab PO PRN ×2 (09:18→22:27)
[2017-08-31] MEDS ORDERED: Darbepoetin Alfa 60 mcg/ml Inj SC ONE (11:40)
--- NOTE | 2017-08-31 11:43 | CP.PCM.CON ---
History of Present Illness - History of Present Illness History of Present Illness: Nephrology Consultation Note: Assessment: Acute Kidney Injury (N17.9) versus progression of CKD Chronic Kidney Disease Stage 4 (N18.4) with nephrotic proteinuria likely due to diabetic nephropathy (E11.22), atrophic Rt Kidney, hx of recurrent CLIFTON chronic Anemia, Hypertension (I12.9), hx of CVA, CAD, chronic indwelling lópez Vit D deficiency, chronic edema, hyperphosphatemia Plan No acute need for renal replacement therapy at this time. Hypertension control with meds as ordered. Patient not on ACEI/ARB likely due to advanced renal insuff. resume lasix 40 IV bid Monitor I/O, daily weights and renal function while in hospital continue with iron supplements. MVI and dose of aransep 60 mcg on 08/31/17 dose of neurontin to be reduced max 300 mg/day for his reduced renal function consider to add statins check Vit D, PTH and phos levels Dose meds/antibiotics for reduced GFR. Avoid fleets enema/magnesium based laxatives. Avoid nephrotoxins/NSAIDs/ iodinated contrast (unless needed emergently) Glycemic control, renal diet Further work up for as per primary team. Thanks for allowing me to participate in care of your patient. Will follow with you. Please call if any Qs. d/w team Dr Artis Mendoza Office: [phone] Chief Complaint; vision impairment reason for consult: CLIFTON on CKD HPI: Pt is a 36 y/o M with hx of type I diabetes Mellitus ( x 25 years) with associated retinopathy, neuropathy and likely diabetic nephropathy, HTN, CKD stage 4 with nephrotic syndrome (baseline cr in 3 range since feb 2017), hx of recurrent CLIFTON, chronic urine incontinence and chronic indwelling lópez hx of CVA , non ambulatory presented with complaints of visual impairment. renal consult for CKD management. pt hasn't followed in renal office. Denies chest pain, palpitation, shortness of breath, reports leg swelling Denies OTC/herbal meds/NSAIDs No recent iodinated contrast exposure. BP mostly high ROS: denies CP/SOB/nausea/vomitting/pain abdomen. has chronic back pain. rest other negative except as mentioned in HPI Physical Examination: General Appearance: Comfortable, in no acute respiratory distress, co- operative. obese Vitals reviewed and noted as below Head; Atraumatic, normocephalic ENT: no ulcers no thrush. Tongue is midline. Oropharynx: no rash or ulcers. EYES: Pupils are equal, round and reactive to light accommodation. Eye muscles and extraocular movement intact. Sclera is anicteric. Neck; supple no lymphadenopathy, no thyromegaly or bruit Lungs: Normal respiratory rate/effort. Breath sounds clear and bilateral equal Heart: Normal rate. s1s2 normal. No rub or gallop. Extremities: 2+ edema. No varicose veins Neurological: Patient is alert, awake and oriented x 3 chronic leg paresis Skin: dry and warm. Normal turgor. No rash. Palpitation: Normal elasticity for age Abdomen: Abdomen is soft. Bowel sounds +. There is no abdominal tenderness, no guarding/rigidity or organomegaly Psych: normal insight. normal affect MSK: no specific joint tenderness or swelling. Digits and nails normal, no deformity : kidney or bladder not palpable. has lópez catheter Labs/imaging/EKG reviewed. Past medical history, past surgical history, social history, allergy reviewed and noted as below Family hx; no hx of CKD. non contributory Work up UA: 3+ protein TSAT/ferritin 23%/28 Serology in past as DINA/ANCA negative. normal complements, HIV/Hep B and C were neg aldosterone 1, metanephrines were negative. renal artery doppler: no MAIKEL Rt kidney atrophy 8 cm, left kidney [address] abdomen: unremarkable kidneys and adrenals Past Patient History - Infectious Disease Hx of Infectious Diseases: None - Tetanus Immunizations Tetanus Immunization: Unknown - Past Medical History & Family History Past Medical History?: Yes - Past Social History Smoking Status: Never Smoked - CARDIAC Hx Cardiac Disorders: Yes Hx Congestive Heart Failure: No Hx Hypercholesterolemia: Yes Hx Hypertension: Yes - PULMONARY Hx Chronic Obstructive Pulmonary Disease (COPD): No - NEUROLOGICAL HX Cerebrovascular Accident: Yes (12/2013 Bilateral Lower extremities flaccid) - HEENT Hx HEENT Problems: Yes (wears glasses, recent vision loss due to cva) Hx Blind: No Hx Cataracts: Yes Hx Deafness: No Hx Difficulty Chewing: No Hx Epistaxis: No Hx Glaucoma: No Hx Macular Degeneration: Yes - RENAL Hx Chronic Kidney Disease: Yes ("interstem, 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") Hx Pyelonephritis: Yes - ENDOCRINE/METABOLIC Hx Diabetes Mellitus Type 1: Yes (dx at age 10.) Hx Diabetes Mellitus Type 2: No Hx Hypothyroidism: Yes (synthroid) - HEMATOLOGICAL/ONCOLOGICAL Hx Blood Disorders: No Hx AIDS: No Hx Anemia: No Hx Cancer: No Hx Chemotherapy: No Hx Cirrhosis: No Hx Hemophilia: No Hx Hepatitis A: No Hx Hepatitis B: No Hx Hepatitis C: No Hx Human Immunodeficiency Virus (HIV): No Hx Metastesis: No Hx Shingles: No Hx Unexplained Bleeding: No - INTEGUMENTARY Hx Dermatological Problems: No Hx Basil Cell: No Hx Eczema: No Hx Melanoma: No Hx Psoriasis: No Hx Squamous Cell: No - MUSCULOSKELETAL/RHEUMATOLOGICAL Hx Falls: Yes - GASTROINTESTINAL Hx Gastrointestinal Disorders: Yes (colitis) - GENITOURINARY/GYNECOLOGICAL Hx Genitourinary Disorders: Yes (chronic lópez) Hx Incontinence: Yes Hx Urinary Tract Infection: Yes - PSYCHIATRIC Hx Psychophysiologic Disorder: Yes Hx Anxiety: Yes - SURGICAL HISTORY Hx Surgeries: Yes Hx Cardiac Catheterization: No Hx Coronary Stent: No Other/Comment: bladder surgery - ANESTHESIA Hx Anesthesia: Yes Hx Anesthesia Reactions: No Hx Malignant Hyperthermia: No Meds Allergies/Adverse Reactions: Allergies Allergy/AdvReac Type Severity Reaction Status Date / Time sulfamethoxazole Allergy ANAPHYLAXIS Verified 01/16/17 13:45 [From Bactrim] trimethoprim [From Bactrim] Allergy ANAPHYLAXIS Verified 01/16/17 13:45 - Medications Medications: Current Medications Aspirin (Ecotrin) 81 mg PO DAILY [facility] Last Admin: 08/31/17 09:08 Dose: 81 mg Clonidine HCl (Catapres-Tts3 0.3 Mg/24 Hr) 1 patch TD Q7D@1000 [facility] Clopidogrel Bisulfate (Plavix) 75 mg PO DAILY [facility] Last Admin: 08/31/17 09:11 Dose: 75 mg Docusate Sodium (Colace) 100 mg PO BID [facility] Last Admin: 08/31/17 09:08 Dose: 100 mg Ferrous Sulfate (Feosol Liq) 300 mg PO TID [facility] Last Admin: 08/31/17 09:08 Dose: 300 mg Gabapentin (Neurontin) 600 mg PO TID [facility] PRN Reason: Protocol Last Admin: 08/31/17 09:11 Dose: 600 mg Hydralazine HCl (Apresoline) 50 mg PO Q8 [facility] Last Admin: 08/31/17 05:13 Dose: 50 mg Insulin Detemir (Levemir) 35 unit SC [facility] Last Admin: 08/30/17 21:51 Dose: 35 units Insulin Human Lispro (Humalog Low) 0 units SC ACHS [facility] PRN Reason: Protocol Last Admin: 08/31/17 09:10 Dose: Not Given Insulin Human Lispro (Humalog) 10 units SC AC [facility] Last Admin: 08/31/17 09:10 Dose: 10 units Isosorbide Dinitrate (Isordil) 20 mg PO BID [facility] Last Admin: 08/31/17 09:10 Dose: 20 mg Labetalol HCl (Trandate) 400 mg PO TID [facility] Last Admin: 08/31/17 09:12 Dose: 400 mg Levothyroxine Sodium (Synthroid) 175 mcg PO 0600 [facility] Last Admin: 08/31/17 05:13 Dose: 175 mcg Oxycodone/Acetaminophen (Percocet 10/325 Mg Tab) 1 tab PO Q6H PRN PRN Reason: Pain, moderate (4-7) Last Admin: 08/31/17 09:18 Dose: 1 tab Pantoprazole Sodium (Protonix Ec Tab) 40 mg PO ACB [facility] Polyethylene Glycol (Miralax) 17 gm PO BID [facility] Tamsulosin HCl (Flomax) 0.4 mg PO DAILY [facility] Last Admin: 08/31/17 09:09 Dose: 0.4 mg Zolpidem Tartrate (Ambien) 5 mg PO HS PRN; Protocol PRN Reason: Insomnia Results - Vital Signs Recent Vital Signs: Last Vital Signs Temp 97.7 F 08/31/17 06:00 Pulse 76 08/31/17 09:12 Resp 20 08/31/17 06:00 BP 176/98 H 08/31/17 09:12 Pulse Ox 96 08/31/17 06:00 - Labs Result Diagrams: 08/31/17 05:30 08/31/17 05:30 Labs: Laboratory Results - last 24 hr 08/30/17 08/30/17 08/30/17 16:50 16:50 16:50 WBC RBC Hgb Hct MCV MCH MCHC RDW Plt Count MPV Gran % Lymph % (Auto) Tyler % (Auto) Eos % (Auto) Baso % (Auto) Gran # Lymph # (Auto) Tyler # (Auto) Eos # (Auto) Baso # (Auto) Sodium Potassium Chloride Carbon Dioxide Anion Gap BUN Creatinine Est GFR ( Amer) Est GFR (Non-Af Amer) POC Glucose (mg/dL) Random Glucose Hemoglobin A1c 7.3 H Calcium Iron 56 TIBC 248 L % Saturation 23 Ferritin 28.3 Total Bilirubin AST ALT Alkaline Phosphatase Total Protein Albumin Globulin Albumin/Globulin Ratio Triglycerides Cholesterol LDL Cholesterol Direct HDL Cholesterol Vitamin B12 532 Folate 8.4 Free T4 TSH 3rd Generation 08/30/17 08/30/17 08/30/17 16:50 16:50 16:51 WBC RBC Hgb Hct MCV MCH MCHC RDW Plt Count MPV Gran % Lymph % (Auto) Tyler % (Auto) Eos % (Auto) Baso % (Auto) Gran # Lymph # (Auto) Tyler # (Auto) Eos # (Auto) Baso # (Auto) Sodium Potassium Chloride Carbon Dioxide Anion Gap BUN Creatinine Est GFR ( Amer) Est GFR (Non-Af Amer) POC Glucose (mg/dL) 108 Random Glucose Hemoglobin A1c Calcium Iron TIBC % Saturation Ferritin Total Bilirubin AST ALT Alkaline Phosphatase Total Protein Albumin Globulin Albumin/Globulin Ratio Triglycerides 39 Cholesterol 151 LDL Cholesterol Direct 84 HDL Cholesterol 45 Vitamin B12 Folate Free T4 1.06 TSH 3rd Generation 8.60 H 18 18 08/31/17 20:22 21:50 05:30 WBC 7.6 RBC 2.91 L Hgb 8.3 L Hct 25.6 L MCV 88.0 MCH 28.5 MCHC 32.4 RDW 14.2 Plt Count 351 MPV 9.7 Gran % 65.7 Lymph % (Auto) 20.4 L Tyler % (Auto) 7.9 H Eos % (Auto) 5.1 H Baso % (Auto) 0.9 Gran # 4.98 Lymph # (Auto) 1.6 Tyler # (Auto) 0.6 Eos # (Auto) 0.4 Baso # (Auto) 0.07 Sodium Potassium Chloride Carbon Dioxide Anion Gap BUN Creatinine Est GFR ( Amer) Est GFR (Non-Af Amer) POC Glucose (mg/dL) 197 H 212 H Random Glucose Hemoglobin A1c Calcium Iron TIBC % Saturation Ferritin Total Bilirubin AST ALT Alkaline Phosphatase Total Protein Albumin Globulin Albumin/Globulin Ratio Triglycerides Cholesterol LDL Cholesterol Direct HDL Cholesterol Vitamin B12 Folate Free T4 TSH 3rd Generation 08/31/17 08/31/17 08/31/17 05:30 05:30 07:48 WBC RBC Hgb Hct MCV MCH MCHC RDW Plt Count MPV Gran % Lymph % (Auto) Tyler % (Auto) Eos % (Auto) Baso % (Auto) Gran # Lymph # (Auto) Tyler # (Auto) Eos # (Auto) Baso # (Auto) Sodium 141 Potassium 4.8 Chloride 111 H Carbon Dioxide 21 Anion Gap 14 BUN 59 H Creatinine 4.8 H Est GFR ( Amer) 17 Est GFR (Non-Af Amer) 14 POC Glucose (mg/dL) 105 Random Glucose 161 H Hemoglobin A1c Calcium 8.2 L Iron TIBC % Saturation Ferritin Total Bilirubin 0.2 AST 19 ALT 22 Alkaline Phosphatase 88 Total Protein 5.7 L Albumin 2.9 L Globulin 2.8 Albumin/Globulin Ratio 1.0 L Triglycerides Cholesterol LDL Cholesterol Direct HDL Cholesterol Vitamin B12 Folate Free T4 TSH 3rd Generation 6.86 H
[2017-08-31] MEDS ORDERED: Dextrose 50% SYRINGE Inj (50 ml) ONE (11:57)
--- NOTE | 2017-08-31 12:09 | CP.PCM.CON ---
History of Present Illness - History of Present Illness History of Present Illness: Mr Mccartney is a 36 yr old right handed male who has a pmh of DM 1 since age 10, CKD, HTN, DKA, who lost vision in his right eye on Sunday, with history of multiple prior strokes. Over the last several months, his vision has become progressively worse, until Sunday, and his left eye is blurry. He went to see the opthalmologist who stated that he may have had a TIA,and be evaluated by Er. Several years ago, he had multiple cvas and a neurogenic bladder so he has an indwelling lópez catheter. Denies headaches, dizziness, cp, palpitations, sob, abdominal pain, urinary symptoms, admits to chronic constipation. . PMD: Dr Wakefield Allergies: Sulfamethoxazole, trimethoprim Medications: See MAR Medical History: Multiple CVAs, Chronic Kidney Disease, DM Type 1 with neuropathy, Diabetic retinopathy, Neurogenic bladder, HTN, Anxiety, Hx of ND Surgical History: Left eye surgery; Bladder pacemaker Social History: Denies alcohol, tobacco, drug use; patient is bed bound, uses a wheelchair; patient has a home health aid Family History: Diabetes Mellitus, COPD, Anxiety, no family history of strokes in his family. 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 PERRL. Has no vision in his right eye, left is 10/20. no facial asymmetry. Upper limb: 5/5 Lower limb: 0/5. sensory exam shows that he has decreasedft in his legs bl. +2 dtr ul and ll bl. Toes downgoing. no clonus. Past Patient History - Infectious Disease Hx of Infectious Diseases: None - Tetanus Immunizations Tetanus Immunization: Unknown - Past Medical History & Family History Past Medical History?: Yes - Past Social History Smoking Status: Never Smoked - CARDIAC Hx Cardiac Disorders: Yes Hx Congestive Heart Failure: No Hx Hypercholesterolemia: Yes Hx Hypertension: Yes - PULMONARY Hx Chronic Obstructive Pulmonary Disease (COPD): No - NEUROLOGICAL HX Cerebrovascular Accident: Yes (12/2013 Bilateral Lower extremities flaccid) - HEENT Hx HEENT Problems: Yes (wears glasses, recent vision loss due to cva) Hx Blind: No Hx Cataracts: Yes Hx Deafness: No Hx Difficulty Chewing: No Hx Epistaxis: No Hx Glaucoma: No Hx Macular Degeneration: Yes - RENAL Hx Chronic Kidney Disease: Yes ("interstem, 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") Hx Pyelonephritis: Yes - ENDOCRINE/METABOLIC Hx Diabetes Mellitus Type 1: Yes (dx at age 10.) Hx Diabetes Mellitus Type 2: No Hx Hypothyroidism: Yes (synthroid) - HEMATOLOGICAL/ONCOLOGICAL Hx Blood Disorders: No Hx AIDS: No Hx Anemia: No Hx Cancer: No Hx Chemotherapy: No Hx Cirrhosis: No Hx Hemophilia: No Hx Hepatitis A: No Hx Hepatitis B: No Hx Hepatitis C: No Hx Human Immunodeficiency Virus (HIV): No Hx Metastesis: No Hx Shingles: No Hx Unexplained Bleeding: No - INTEGUMENTARY Hx Dermatological Problems: No Hx Basil Cell: No Hx Eczema: No Hx Melanoma: No Hx Psoriasis: No Hx Squamous Cell: No - MUSCULOSKELETAL/RHEUMATOLOGICAL Hx Falls: Yes - GASTROINTESTINAL Hx Gastrointestinal Disorders: Yes (colitis) - GENITOURINARY/GYNECOLOGICAL Hx Genitourinary Disorders: Yes (chronic lópez) Hx Incontinence: Yes Hx Urinary Tract Infection: Yes - PSYCHIATRIC Hx Psychophysiologic Disorder: Yes Hx Anxiety: Yes - SURGICAL HISTORY Hx Surgeries: Yes Hx Cardiac Catheterization: No Hx Coronary Stent: No Other/Comment: bladder surgery - ANESTHESIA Hx Anesthesia: Yes Hx Anesthesia Reactions: No Hx Malignant Hyperthermia: No Meds Allergies/Adverse Reactions: Allergies Allergy/AdvReac Type Severity Reaction Status Date / Time sulfamethoxazole Allergy ANAPHYLAXIS Verified 01/16/17 13:45 [From Bactrim] trimethoprim [From Bactrim] Allergy ANAPHYLAXIS Verified 01/16/17 13:45 - Medications Medications: Current Medications Aspirin (Ecotrin) 81 mg PO DAILY [facility] Last Admin: 08/31/17 09:08 Dose: 81 mg Clonidine HCl (Catapres-Tts3 0.3 Mg/24 Hr) 1 patch TD Q7D@1000 [facility] Clopidogrel Bisulfate (Plavix) 75 mg PO DAILY [facility] Last Admin: 08/31/17 09:11 Dose: 75 mg Docusate Sodium (Colace) 100 mg PO BID [facility] Last Admin: 08/31/17 09:08 Dose: 100 mg Ferrous Sulfate (Feosol Liq) 300 mg PO TID [facility] Last Admin: 08/31/17 09:08 Dose: 300 mg Gabapentin (Neurontin) 600 mg PO TID [facility] PRN Reason: Protocol Last Admin: 08/31/17 09:11 Dose: 600 mg Hydralazine HCl (Apresoline) 50 mg PO Q8 [facility] Last Admin: 08/31/17 05:13 Dose: 50 mg Insulin Detemir (Levemir) 35 unit SC HS [facility] Last Admin: 08/30/17 21:51 Dose: 35 units Insulin Human Lispro (Humalog Low) 0 units SC ACHS [facility] PRN Reason: Protocol Last Admin: 08/31/17 09:10 Dose: Not Given Insulin Human Lispro (Humalog) 10 units SC AC [facility] Last Admin: 08/31/17 09:10 Dose: 10 units Isosorbide Dinitrate (Isordil) 20 mg PO BID [facility] Last Admin: 08/31/17 09:10 Dose: 20 mg Labetalol HCl (Trandate) 400 mg PO TID [facility] Last Admin: 08/31/17 09:12 Dose: 400 mg Levothyroxine Sodium (Synthroid) 175 mcg PO 0600 [facility] Last Admin: 08/31/17 05:13 Dose: 175 mcg Oxycodone/Acetaminophen (Percocet 10/325 Mg Tab) 1 tab PO Q6H PRN PRN Reason: Pain, moderate (4-7) Last Admin: 08/31/17 09:18 Dose: 1 tab Pantoprazole Sodium (Protonix Ec Tab) 40 mg PO ACB [facility] Polyethylene Glycol (Miralax) 17 gm PO BID [facility] Tamsulosin HCl (Flomax) 0.4 mg PO DAILY [facility] Last Admin: 08/31/17 09:09 Dose: 0.4 mg Vitamin B Complex/Vit C/Folic Acid (Nephro-Devi) 1 tab PO 0800 [facility] Zolpidem Tartrate (Ambien) 5 mg PO HS PRN; Protocol PRN Reason: Insomnia Results - Vital Signs Recent Vital Signs: Last Vital Signs Temp 97.7 F 08/31/17 06:00 Pulse 76 08/31/17 09:12 Resp 20 08/31/17 06:00 BP 176/98 H 08/31/17 09:12 Pulse Ox 96 08/31/17 06:00 - Labs Result Diagrams: 08/31/17 05:30 08/31/17 05:30 Labs: Laboratory Results - last 24 hr 08/30/17 08/30/17 08/30/17 16:50 16:50 16:50 WBC RBC Hgb Hct MCV MCH MCHC RDW Plt Count MPV Gran % Lymph % (Auto) Knott % (Auto) Eos % (Auto) Baso % (Auto) Gran # Lymph # (Auto) Knott # (Auto) Eos # (Auto) Baso # (Auto) Sodium Potassium Chloride Carbon Dioxide Anion Gap BUN Creatinine Est GFR ( Amer) Est GFR (Non-Af Amer) POC Glucose (mg/dL) Random Glucose Hemoglobin A1c 7.3 H Calcium Iron 56 TIBC 248 L % Saturation 23 Ferritin 28.3 Total Bilirubin AST ALT Alkaline Phosphatase Total Protein Albumin Globulin Albumin/Globulin Ratio Triglycerides Cholesterol LDL Cholesterol Direct HDL Cholesterol Vitamin B12 532 Folate 8.4 Free T4 TSH 3rd Generation 18 08/30/17 08/30/17 16:50 16:50 16:51 WBC RBC Hgb Hct MCV MCH MCHC RDW Plt Count MPV Gran % Lymph % (Auto) Knott % (Auto) Eos % (Auto) Baso % (Auto) Gran # Lymph # (Auto) Knott # (Auto) Eos # (Auto) Baso # (Auto) Sodium Potassium Chloride Carbon Dioxide Anion Gap BUN Creatinine Est GFR ( Amer) Est GFR (Non-Af Amer) POC Glucose (mg/dL) 108 Random Glucose Hemoglobin A1c Calcium Iron TIBC % Saturation Ferritin Total Bilirubin AST ALT Alkaline Phosphatase Total Protein Albumin Globulin Albumin/Globulin Ratio Triglycerides 39 Cholesterol 151 LDL Cholesterol Direct 84 HDL Cholesterol 45 Vitamin B12 Folate Free T4 1.06 TSH 3rd Generation 8.60 H 18 18 08/31/17 20:22 21:50 05:30 WBC 7.6 RBC 2.91 L Hgb 8.3 L Hct 25.6 L MCV 88.0 MCH 28.5 MCHC 32.4 RDW 14.2 Plt Count 351 MPV 9.7 Gran % 65.7 Lymph % (Auto) 20.4 L Knott % (Auto) 7.9 H Eos % (Auto) 5.1 H Baso % (Auto) 0.9 Gran # 4.98 Lymph # (Auto) 1.6 Knott # (Auto) 0.6 Eos # (Auto) 0.4 Baso # (Auto) 0.07 Sodium Potassium Chloride Carbon Dioxide Anion Gap BUN Creatinine Est GFR ( Amer) Est GFR (Non-Af Amer) POC Glucose (mg/dL) 197 H 212 H Random Glucose Hemoglobin A1c Calcium Iron TIBC % Saturation Ferritin Total Bilirubin AST ALT Alkaline Phosphatase Total Protein Albumin Globulin Albumin/Globulin Ratio Triglycerides Cholesterol LDL Cholesterol Direct HDL Cholesterol Vitamin B12 Folate Free T4 TSH 3rd Generation 08/31/17 08/31/17 08/31/17 05:30 05:30 07:48 WBC RBC Hgb Hct MCV MCH MCHC RDW Plt Count MPV Gran % Lymph % (Auto) Knott % (Auto) Eos % (Auto) Baso % (Auto) Gran # Lymph # (Auto) Knott # (Auto) Eos # (Auto) Baso # (Auto) Sodium 141 Potassium 4.8 Chloride 111 H Carbon Dioxide 21 Anion Gap 14 BUN 59 H Creatinine 4.8 H Est GFR ( Amer) 17 Est GFR (Non-Af Amer) 14 POC Glucose (mg/dL) 105 Random Glucose 161 H Hemoglobin A1c Calcium 8.2 L Iron TIBC % Saturation Ferritin Total Bilirubin 0.2 AST 19 ALT 22 Alkaline Phosphatase 88 Total Protein 5.7 L Albumin 2.9 L Globulin 2.8 Albumin/Globulin Ratio 1.0 L Triglycerides Cholesterol LDL Cholesterol Direct HDL Cholesterol Vitamin B12 Folate Free T4 TSH 3rd Generation 6.86 H 08/31/17 08/31/17 11:21 11:53 WBC RBC Hgb Hct MCV MCH MCHC RDW Plt Count MPV Gran % Lymph % (Auto) Knott % (Auto) Eos % (Auto) Baso % (Auto) Gran # Lymph # (Auto) Knott # (Auto) Eos # (Auto) Baso # (Auto) Sodium Potassium Chloride Carbon Dioxide Anion Gap BUN Creatinine Est GFR ( Amer) Est GFR (Non-Af Amer) POC Glucose (mg/dL) 40 L 46 L Random Glucose Hemoglobin A1c Calcium Iron TIBC % Saturation Ferritin Total Bilirubin AST ALT Alkaline Phosphatase Total Protein Albumin Globulin Albumin/Globulin Ratio Triglycerides Cholesterol LDL Cholesterol Direct HDL Cholesterol Vitamin B12 Folate Free T4 TSH 3rd Generation - Imaging and Cardiology CT scan - head Status: Image reviewed by me, Report reviewed by me (ct head normal. ) Assessment & Plan - Assessment and Plan (Free Text) Assessment: 36 yr old male who may have holl[place]st plaque in right superior opthalmic artery, leading to sudden loss of vision in his right eye. He also has a chronic history of multiple strokes at a very young age. I am very concerned that he has a congenital stroke syndrome such as CADASIL or may have a hematological issue. Plan: 1. CTA head and neck fer 2. MRI brain without contrast 3. protein c, protein s, lupus anticoagulant, factor 5 leiden, prothrombin gene mutation. 4. aspirin and plavix 75 mg daily. 5. Genetic testing for notch [address] Lewis
--- NOTE | 2017-08-31 14:02 | CP.PCM.PN ---
<Cornelia Williamson - Last Filed: 08/31/17 13:58> Subjective - Date & Time of Evaluation Date of Evaluation: 08/31/17 Time of Evaluation: 12:00 - Subjective Subjective: Cornelia Williamson, PGY1, Medicine Progress Note for Dr Roach: Patient seen and examined at bedside. Patient had elevated blood pressure overnight, 185/100, given hydralazine. Denies headache, cp, fever, chills, nausea, vomiting, abdominal pain, urinary symptoms. Pt states that his right vision is unchanged/left eye blurry vision is mildly improving. Objective - Vital Signs/Intake and Output Vital Signs (last 24 hours): Temp Pulse Resp BP Pulse Ox 97.7 F 76 20 176/98 H 96 08/31/17 06:00 08/31/17 09:12 08/31/17 06:00 08/31/17 09:12 08/31/17 06:00 Intake and Output: 08/31/17 08/31/17 06:59 18:59 Intake Total 1060 Output Total 2000 Balance -940 - Medications Medications: Current Medications Aspirin (Ecotrin) 81 mg PO DAILY [facility] Last Admin: 08/31/17 09:08 Dose: 81 mg Clonidine HCl (Catapres-Tts3 0.3 Mg/24 Hr) 1 patch TD Q7D@1000 [facility] Clopidogrel Bisulfate (Plavix) 75 mg PO DAILY [facility] Last Admin: 08/31/17 09:11 Dose: 75 mg Docusate Sodium (Colace) 100 mg PO BID [facility] Last Admin: 08/31/17 09:08 Dose: 100 mg Ferrous Sulfate (Feosol Liq) 300 mg PO TID [facility] Last Admin: 08/31/17 09:08 Dose: 300 mg Gabapentin (Neurontin) 600 mg PO TID [facility] PRN Reason: Protocol Last Admin: 08/31/17 09:11 Dose: 600 mg Hydralazine HCl (Apresoline) 50 mg PO Q8 [facility] Last Admin: 08/31/17 05:13 Dose: 50 mg Insulin Detemir (Levemir) 35 unit SC HS [facility] Last Admin: 08/30/17 21:51 Dose: 35 units Insulin Human Lispro (Humalog Low) 0 units SC [facility] PRN Reason: Protocol Last Admin: 08/31/17 09:10 Dose: Not Given Insulin Human Lispro (Humalog) 10 units SC AC [facility] Last Admin: 08/31/17 09:10 Dose: 10 units Isosorbide Dinitrate (Isordil) 20 mg PO BID [facility] Last Admin: 08/31/17 09:10 Dose: 20 mg Labetalol HCl (Trandate) 400 mg PO TID [facility] Last Admin: 08/31/17 09:12 Dose: 400 mg Levothyroxine Sodium (Synthroid) 175 mcg PO 0600 [facility] Last Admin: 08/31/17 05:13 Dose: 175 mcg Oxycodone/Acetaminophen (Percocet 10/325 Mg Tab) 1 tab PO Q6H PRN PRN Reason: Pain, moderate (4-7) Last Admin: 08/31/17 09:18 Dose: 1 tab Pantoprazole Sodium (Protonix Ec Tab) 40 mg PO ACB [facility] Polyethylene Glycol (Miralax) 17 gm PO BID [facility] Tamsulosin HCl (Flomax) 0.4 mg PO DAILY [facility] Last Admin: 08/31/17 09:09 Dose: 0.4 mg Vitamin B Complex/Vit C/Folic Acid (Nephro-Devi) 1 tab PO 0800 [facility] Zolpidem Tartrate (Ambien) 5 mg PO HS PRN; Protocol PRN Reason: Insomnia - Labs Labs: 08/31/17 05:30 08/31/17 05:30 PT 11.4 SECONDS (9.4-12.5) 08/30/17 12:53 INR 0.99 (0.93-1.08) 08/30/17 12:53 APTT 26.0 Seconds (25.1-36.5) 08/30/17 12:53 - Constitutional Appears: Non-toxic, No Acute Distress - Head Exam Head Exam: ATRAUMATIC, NORMOCEPHALIC - Eye Exam Eye Exam: PERRL. absent: Conjunctival injection, Nystagmus, Scleral icterus Pupil Exam: PERRL. absent: Irregular, Unequal - ENT Exam ENT Exam: Mucous Membranes Moist - Neck Exam Neck Exam: Full ROM - Respiratory Exam Respiratory Exam: Clear to Ausculation Bilateral, NORMAL BREATHING PATTERN. absent: Accessory Muscle Use, Rales, Rhonchi, Wheezes, Respiratory Distress, Stridor - Cardiovascular Exam Cardiovascular Exam: RRR, +S1, +S2. absent: Murmur - GI/Abdominal Exam GI & Abdominal Exam: Soft, Normal Bowel Sounds. absent: Distended, Firm, Guarding, Rigid, Tenderness, Mass, Organomegaly - Extremities Exam Extremities Exam: Pedal Edema (2+ b/l). absent: Calf Tenderness - Back Exam Back Exam: NORMAL INSPECTION - Neurological Exam Neurological Exam: Alert, Awake, Oriented x3 Neuro motor strength exam: Left Upper Extremity: 3, Right Upper Extremity: 3, Left Lower Extremity: 3, Right Lower Extremity: 3 - Psychiatric Exam Psychiatric exam: Normal Affect, Normal Mood - Skin Skin Exam: Dry, Normal Color, Warm Assessment and Plan - Assessment and Plan (Free Text) Assessment: 36 year old male with past medical history of mulitple CVA's, DM, CKD, presents to the ED for right eye vision loss, found to have elevated Cr, anemia: Right eye vision loss: CVA vs ischemic retinal disease -Stable, afebrile -Monitor on telemetry -Patient had a history of multiple CVAs in the past -CT head: negative -Carotid US showed bilateral 0-19 percent proximal ICA stenosis, antegrade flow in both vertebral arteries -MRI brain could not be done due to presence of bladder pacemaker -Continue Aspirin, plavix. -Neurology on consult, help appreciated -Pt's Ophthalmology Dr Matthews consulted, recommended primarily outpatient follow up. In-house opthalmology Dr Belle consulted, recommends following pt's opthalmology recs. -Physical Therapy recommends home, outpatient physical therapy. Normocytic Anemia: mixed: anemia of chronic disease (ACD) and iron deficiency anemia -Hg 8.3 (baseline 9.8), asymptomatic -nephro on board, appreciate recs -aranesp, home feosol -anemia workup reviewed. -F/U stool occult, uncollected as no BM yet Elevated Cr: 2/2 [place] on CKD vs worsening CKD -Baseline Cr 2-3 -BUN/CR on admission 59/4.6, today Cr 4.8 -F/U urine sodium, urine urea, urine creatinine -Nephro on consult, help appreciated History of Hypertension -Continue home medications -added clonidine patch -d/cd IVF -Lasix 40 IV BID History of PA -Continue Aspirin 81mg, plavix -EKG showed NSR -LDL 84. lipitor 20 mg daily Diabetes Mellitus Type 1/Peripheral Neuropathy: -HgA1c 7.3 -Low dose ISS, accuchecks ACHS -Humalog 10 units SC AC, Levemir 35 units HS -stopped Gabapentin due to [place] CHF (diastolic dysfunction)/Bilateral Lower Extremity Swelling: -Lower extremity doppler done, pending results. -Last echo 07/2016: borderline concentric left ventricular hypertrophy, normal LVEF, grade I abnormal relaxation pattern History of Neurogenic Bladder with Chronic López -S/P bladder pacemaker -López catheter last changed 6 weeks ago -Will reinsert new lópez -Continue Flomax 0.4mg PO daily -F/u urinalysis, urine culture History of Hypothyroidism -Continue home synthroid 175 mcg -TSH 6.86, Free T4 1.06. repeat TSH outpatient in 4-6 weeks. Chronic Constipation -Colace 100mg PO BID -Miralax 17gm PO daily prn constipation GI/DVT -Protonix 40mg IV daily -SCDs Case seen and discussed with Dr Roach. Cornelia Williamson, PGY1 <Sierra Roach - Last Filed: 08/31/17 16:38> Objective - Vital Signs/Intake and Output Vital Signs (last 24 hours): Temp Pulse Resp BP Pulse Ox 97.7 F 74 20 148/88 96 08/31/17 06:00 08/31/17 14:14 08/31/17 06:00 08/31/17 14:14 08/31/17 06:00 Intake and Output: 08/31/17 08/31/17 06:59 18:59 Intake Total 1060 1200 Output Total 2000 750 Balance -940 450 - Medications Medications: Current Medications Aspirin (Ecotrin) 81 mg PO DAILY [facility] Last Admin: 08/31/17 09:08 Dose: 81 mg Atorvastatin Calcium (Lipitor) 20 mg PO DIN [facility] Clonidine HCl (Catapres-Tts3 0.3 Mg/24 Hr) 1 patch TD Q7D@1000 [facility] Clopidogrel Bisulfate (Plavix) 75 mg PO DAILY [facility] Last Admin: 08/31/17 09:11 Dose: 75 mg Docusate Sodium (Colace) 100 mg PO BID [facility] Last Admin: 08/31/17 09:08 Dose: 100 mg Ferrous Sulfate (Feosol Liq) 300 mg PO TID [facility] Last Admin: 08/31/17 14:15 Dose: 300 mg Furosemide (Lasix) 40 mg IVP Q12 [facility] Hydralazine HCl (Apresoline) 50 mg PO Q8 [facility] Last Admin: 08/31/17 14:14 Dose: 50 mg Insulin Detemir (Levemir) 35 unit SC HS [facility] Last Admin: 08/30/17 21:51 Dose: 35 units Insulin Human Lispro (Humalog Low) 0 units SC ACHS [facility] PRN Reason: Protocol Last Admin: 08/31/17 14:16 Dose: Not Given Insulin Human Lispro (Humalog) 10 units SC AC [facility] Last Admin: 08/31/17 14:16 Dose: Not Given Isosorbide Dinitrate (Isordil) 20 mg PO BID [facility] Last Admin: 08/31/17 09:10 Dose: 20 mg Labetalol HCl (Trandate) 400 mg PO TID [facility] Last Admin: 08/31/17 14:18 Dose: 400 mg Levothyroxine Sodium (Synthroid) 175 mcg PO 0600 [facility] Last Admin: 08/31/17 05:13 Dose: 175 mcg Oxycodone/Acetaminophen (Percocet 10/325 Mg Tab) 1 tab PO Q6H PRN PRN Reason: Pain, moderate (4-7) Last Admin: 08/31/17 09:18 Dose: 1 tab Pantoprazole Sodium (Protonix Ec Tab) 40 mg PO ACB [facility] Polyethylene Glycol (Miralax) 17 gm PO BID [facility] Tamsulosin HCl (Flomax) 0.4 mg PO DAILY [facility] Last Admin: 08/31/17 09:09 Dose: 0.4 mg Vitamin B Complex/Vit C/Folic Acid (Nephro-Devi) 1 tab PO 0800 [facility] Zolpidem Tartrate (Ambien) 5 mg PO HS PRN; Protocol PRN Reason: Insomnia - Labs Labs: 08/31/17 05:30 08/31/17 05:30 PT 11.4 SECONDS (9.4-12.5) 08/30/17 12:53 INR 0.99 (0.93-1.08) 08/30/17 12:53 APTT 26.0 Seconds (25.1-36.5) 08/30/17 12:53 Attending/Attestation - Attestation I have personally seen and examined this patient.: Yes I have fully participated in the care of the patient.: Yes I have reviewed all pertinent clinical information, including history, physical exam and plan: Yes Notes (Text): 08/31/17 15:58 36 year old male with past medical history of multiple CVAs, diabetes, hypertension and CKD who presented with complaint of worsening vision for the past few days. He was seen by his rn social services who recommended neurologic imaging. MRI brain was not able to be obtained secondary to presence of bladder pacemaker. CT head and carotid dopplers were negative for acute findings. Neurology evaluation was requested; awaiting recommendations. PT evaluation was appreciated; recommended outpatient PT. Patient is on aspirin and statin. He was also found to have acute on chronic renal failure and worsening anemia, possibly anemia of chronic renal disease. Nephrology evaluation was appreciated. He is on po iron. Dose of aranesp was given. Blood pressure is elevated. He is on clonidine, imdur, labetalol and hydralazine. IV lasix was added today. He has lower extremity edema and LE dopplers were done. Official report is pending, but prelimanary report is negative. He is on levemir 35 units hs and humalog 10 units AC for diabetes. A1c is 7.3. He was hypoglycemic earlier this morning so we will reduce his levemir dose, monitor fingersticks and adjust his medications accordingly. Sierra Roach MD Hospitalist.
[2017-08-31] MEDS: Insulin Lispro (humaLOG) MEDIUM Coverage SC SCH ×2 (17:14→21:07)
--- NOTE | 2017-08-31 17:23 | US ---
HISTORY: Leg pain and swelling. Evaluate for DVT PHYSICIAN(S): Andriy Gomez MD. TECHNIQUE: Duplex sonography and color-flow Doppler with graded compression were used to evaluate the deep venous systems of both lower extremities. The exam is very limited by body habitus and edema. FINDINGS: The visualized deep venous systems of both lower extremities are sonographically normal and compressible. Normal wave forms and augmentation are seen. There is no sonographic evidence for deep venous thrombosis in the visualized segments of both lower extremities. IMPRESSION: No sonographic evidence for deep venous thrombosis in the visualized segments of both lower extremities. Very limited study.
[2017-08-31] MEDS: POLYETHYLENE GLYCOL 3350 17 GM/Dose PACKET PO SCH (17:25)
[2017-08-31] MEDS ORDERED: Insulin Detemir 100 units/ml Vial (Levemir) SC SCH (22:00)
[2017-08-31] MEDS ORDERED: Insulin Detemir 100 units/ml Vial (Levemir) SC ONE (22:04)
[2017-09-01] MEDS: Levothyroxine 175 MCG TAB PO SCH (05:19)
[2017-09-01 07:51] LABS: BASO # 0.07 K/mm3 (0.0-2.0); BASO % 1.1 % (0.0-3.0); EOS # 0.4 (0.0-0.7); EOS % 5.5 % (1.5-5.0); GRAN # 3.7 (1.4-6.5); GRAN % 58.3 % (50.0-68.0); HEMOGLOBIN 7.7 g/dL (14.0-18.0); LYMPH # 1.7 (1.2-3.4); LYMPH % 26.3 % (22.0-35.0); MEAN CELL VOLUME 88.4 fl (80.0-105.0); MEAN CORPUSCULAR HEMOGLOBIN 28.8 pg (25.0-35.0); MEAN CORPUSCULAR HGB CONC 32.6 g/dl (31.0-37.0); MEAN PLATELET VOLUME 9.5 fl (7.0-11.0); MONO # 0.6 (0.1-0.6); MONO % 8.8 % (1.0-6.0); RBC 2.67 10^6/uL (3.5-6.1); RED CELL DISTRIBUTION WIDTH 14.1 % (11.5-14.5); WHITE BLOOD COUNT 6.4 10^3/ul (4.5-11.0)
[2017-09-01] MEDS: Insulin Lispro (humaLOG) MEDIUM Coverage SC SCH ×4 (07:59→21:43)
[2017-09-01 08:14] LABS: ALB/GLOB RATIO 1.1 (1.1-1.8); ALBUMIN 2.9 g/dL (3.0-4.8); CALCIUM 7.9 mg/dL (8.4-10.5)
[2017-09-01] MEDS: Pantoprazole 40 mg EC Tab PO SCH (09:56)
[2017-09-01] MEDS: Multivitamin Vitamin B Complex (Nephro-Vite) Tab PO SCH (09:56)
[2017-09-01] MEDS: Ferrous Sulfate 300 mg/5 mL Liq UD PO SCH ×3 (09:58→17:22)
[2017-09-01] MEDS: POLYETHYLENE GLYCOL 3350 17 GM/Dose PACKET PO SCH ×2 (10:00→17:24)
[2017-09-01] MEDS: Insulin Detemir 100 units/ml Vial (Levemir) SC SCH ×2 (10:30→21:51)
[2017-09-01] MEDS ORDERED: Sod Polystyrene Sulf 15 gm/60 ml Susp PO ONE (10:45)
--- NOTE | 2017-09-01 13:11 | CP.PCM.PN ---
<Sunni Hillman - Last Filed: 09/01/17 19:51> Subjective - Date & Time of Evaluation Date of Evaluation: 09/01/17 Time of Evaluation: 08:30 - Subjective Subjective: Sunni Hillman DO, PGY-1: Hospitalist Service Patient seen and examined at bedside. Chart review indicates patient's blood pressure has improved. He reports his vision is unchanged. Patient was noted to have an elevated Potassium and was given 30 mg of Kayexelate. Nurse called to notify that the patient's hemoglobin was 7.7. Case was discussed in detail with Dr. Lewis. No adverse events noted overnight. Objective - Vital Signs/Intake and Output Vital Signs (last 24 hours): Temp Pulse Resp BP Pulse Ox 97.8 F 69 20 129/70 96 09/01/17 06:00 09/01/17 10:00 09/01/17 06:00 09/01/17 09:58 09/01/17 10:00 Intake and Output: 09/01/17 09/01/17 06:59 18:59 Intake Total 1260 Output Total 1200 Balance 60 - Medications Medications: Current Medications Aspirin (Ecotrin) 81 mg PO DAILY [facility] Last Admin: 09/01/17 09:57 Dose: 81 mg Atorvastatin Calcium (Lipitor) 20 mg PO DIN [facility] Last Admin: 08/31/17 17:24 Dose: 20 mg Clonidine HCl (Catapres-Tts3 0.3 Mg/24 Hr) 1 patch TD Q7D@1000 [facility] Clopidogrel Bisulfate (Plavix) 75 mg PO DAILY [facility] Last Admin: 09/01/17 09:57 Dose: 75 mg Docusate Sodium (Colace) 100 mg PO BID [facility] Last Admin: 09/01/17 09:58 Dose: 100 mg Ferrous Sulfate (Feosol Liq) 300 mg PO TID [facility] Last Admin: 09/01/17 09:58 Dose: 300 mg Furosemide (Lasix) 40 mg IVP Q12 [facility] Last Admin: 09/01/17 09:58 Dose: 40 mg Hydralazine HCl (Apresoline) 50 mg PO Q8 [facility] Last Admin: 09/01/17 05:14 Dose: 50 mg Insulin Detemir (Levemir) 12 unit SC Q12H [facility] Last Admin: 09/01/17 10:30 Dose: 12 unit Insulin Human Lispro (Humalog Med) 0 units SC ACHS [facility] PRN Reason: Protocol Last Admin: 09/01/17 11:34 Dose: 1 units Isosorbide Dinitrate (Isordil) 20 mg PO BID [facility] Last Admin: 09/01/17 09:57 Dose: 20 mg Labetalol HCl (Trandate) 400 mg PO TID [facility] Last Admin: 09/01/17 09:57 Dose: 400 mg Levothyroxine Sodium (Synthroid) 175 mcg PO 0600 [facility] Last Admin: 09/01/17 05:19 Dose: 175 mcg Oxycodone/Acetaminophen (Percocet 10/325 Mg Tab) 1 tab PO Q6H PRN PRN Reason: Pain, moderate (4-7) Last Admin: 08/31/17 22:27 Dose: 1 tab Pantoprazole Sodium (Protonix Ec Tab) 40 mg PO ACB [facility] Last Admin: 09/01/17 09:56 Dose: 40 mg Polyethylene Glycol (Miralax) 17 gm PO BID [facility] Last Admin: 09/01/17 10:00 Dose: 17 gm Tamsulosin HCl (Flomax) 0.4 mg PO DAILY [facility] Last Admin: 09/01/17 09:56 Dose: 0.4 mg Vitamin B Complex/Vit C/Folic Acid (Nephro-Devi) 1 tab PO 0800 [facility] Last Admin: 09/01/17 09:56 Dose: 1 tab Zolpidem Tartrate (Ambien) 5 mg PO HS PRN; Protocol PRN Reason: Insomnia - Labs Labs: 09/01/17 07:30 09/01/17 07:30 PT 11.4 SECONDS (9.4-12.5) 08/30/17 12:53 INR 0.99 (0.93-1.08) 08/30/17 12:53 APTT 26.0 Seconds (25.1-36.5) 08/30/17 12:53 - Constitutional Appears: Non-toxic - Head Exam Head Exam: ATRAUMATIC, NORMOCEPHALIC - Eye Exam Eye Exam: EOMI, Normal appearance - ENT Exam ENT Exam: Mucous Membranes Moist, Normal Oropharynx - Neck Exam Neck Exam: Normal Inspection - Respiratory Exam Respiratory Exam: Clear to Ausculation Bilateral, NORMAL BREATHING PATTERN. absent: Accessory Muscle Use - Cardiovascular Exam Cardiovascular Exam: RRR, +S1, +S2 Assessment and Plan - Assessment and Plan (Free Text) Assessment: 36 year old male with past medical history of mulitple CVA's, DM, CKD, presents to the ED for right eye vision loss, found to have elevated Cr, anemia: Right eye vision loss: CVA vs ischemic retinal disease -Stable, afebrile -Monitor on telemetry -Patient had a history of multiple CVAs in the past -CT head: negative -Carotid US showed bilateral 0-19 percent proximal ICA stenosis, antegrade flow in both vertebral arteries -MRI brain could not be done due to presence of bladder pacemaker -Continue Aspirin, plavix. -Neurology on consult, help appreciated -Pt's Ophthalmology Dr Matthews consulted, recommended primarily outpatient follow up. In-house opthalmology Dr Belle consulted, recommends following pt's opthalmology recs. -Physical Therapy recommends home, outpatient physical therapy. Normocytic Anemia: mixed: anemia of chronic disease (ACD) and iron deficiency anemia -Hg 8.3 (baseline 9.8), asymptomatic -nephro on board, appreciate recs -aranesp, home feosol -anemia workup reviewed. -F/U stool occult, uncollected as no BM yet Elevated Cr: 2/2 [place] on CKD vs worsening CKD -Baseline Cr 2-3 -BUN/CR on admission 59/4.6, today Cr 4.8 -F/U urine sodium, urine urea, urine creatinine -Nephro on consult, help appreciated History of Hypertension -Continue home medications -added clonidine patch -d/cd IVF -Lasix 40 IV BID History of [place] -Continue Aspirin 81mg, plavix -EKG showed NSR -LDL 84. lipitor 20 mg daily Diabetes Mellitus Type 1/Peripheral Neuropathy: -HgA1c 7.3 -Low dose ISS, accuchecks ACHS -Humalog 10 units SC AC, Levemir 35 units HS -stopped Gabapentin due to [place] CHF (diastolic dysfunction)/Bilateral Lower Extremity Swelling: -Lower extremity doppler done, pending results. -Last echo 07/2016: borderline concentric left ventricular hypertrophy, normal LVEF, grade I abnormal relaxation pattern History of Neurogenic Bladder with Chronic López -S/P bladder pacemaker -López catheter last changed 6 weeks ago -Will reinsert new lópez -Continue Flomax 0.4mg PO daily -F/u urinalysis, urine culture History of Hypothyroidism -Continue home synthroid 175 mcg -TSH 6.86, Free T4 1.06. repeat TSH outpatient in 4-6 weeks. Chronic Constipation -Colace 100mg PO BID -Miralax 17gm PO daily prn constipation GI/DVT -Protonix 40mg IV daily -SCDs Case seen and discussed with Dr Roach. Sunni Hillman, PGY1 <Sierra Roach - Last Filed: 09/02/17 07:32> Objective - Vital Signs/Intake and Output Vital Signs (last 24 hours): Temp Pulse Resp BP Pulse Ox 98.2 F 78 20 180/97 H 98 09/02/17 06:00 09/02/17 06:00 09/02/17 06:00 09/02/17 06:00 09/02/17 06:00 Intake and Output: 09/02/17 09/02/17 06:59 18:59 Intake Total 1200 Output Total 3250 1999 Balance -2049 - Medications Medications: Current Medications Aspirin (Ecotrin) 81 mg PO DAILY [facility] Last Admin: 09/01/17 09:57 Dose: 81 mg Atorvastatin Calcium (Lipitor) 20 mg PO DIN [facility] Last Admin: 09/01/17 16:38 Dose: 20 mg Clonidine HCl (Catapres-Tts3 0.3 Mg/24 Hr) 1 patch TD Q7D@1000 [facility] Docusate Sodium (Colace) 100 mg PO BID [facility] Last Admin: 09/01/17 17:21 Dose: 100 mg Ferrous Sulfate (Feosol Liq) 300 mg PO TID [facility] Last Admin: 09/01/17 17:22 Dose: 300 mg Furosemide (Lasix) 40 mg IVP Q12 [facility] Last Admin: 09/01/17 21:48 Dose: 40 mg Hydralazine HCl (Apresoline) 50 mg PO Q8 [facility] Last Admin: 09/02/17 06:00 Dose: 50 mg Iron Sucrose 200 mg/ Sodium (Chloride) 110 mls @ 110 mls/hr IVPB DAILY [facility] Stop: 09/07/17 10:01 Insulin Detemir (Levemir) 12 unit SC Q12H [facility] Last Admin: 09/01/17 21:51 Dose: 12 unit Insulin Human Lispro (Humalog Med) 0 units SC ACHS [facility] PRN Reason: Protocol Last Admin: 09/01/17 21:43 Dose: Not Given Isosorbide Dinitrate (Isordil) 20 mg PO BID [facility] Last Admin: 09/01/17 17:21 Dose: 20 mg Labetalol HCl (Trandate) 400 mg PO TID [facility] Last Admin: 09/01/17 17:21 Dose: 400 mg Levothyroxine Sodium (Synthroid) 175 mcg PO 0600 [facility] Last Admin: 09/02/17 06:01 Dose: 175 mcg Oxycodone/Acetaminophen (Percocet 10/325 Mg Tab) 1 tab PO Q6H PRN PRN Reason: Pain, moderate (4-7) Last Admin: 08/31/17 22:27 Dose: 1 tab Pantoprazole Sodium (Protonix Ec Tab) 40 mg PO ACB [facility] Last Admin: 09/01/17 09:56 Dose: 40 mg Polyethylene Glycol (Miralax) 17 gm PO BID [facility] Last Admin: 09/01/17 17:24 Dose: 17 gm Sevelamer HCl (Renagel) 800 mg PO TID [facility] Last Admin: 09/01/17 17:22 Dose: 800 mg Tamsulosin HCl (Flomax) 0.4 mg PO DAILY [facility] Last Admin: 09/01/17 09:56 Dose: 0.4 mg Vitamin B Complex/Vit C/Folic Acid (Nephro-Devi) 1 tab PO 0800 [facility] Last Admin: 09/01/17 09:56 Dose: 1 tab Zolpidem Tartrate (Ambien) 5 mg PO HS PRN; Protocol PRN Reason: Insomnia Last Admin: 09/01/17 21:46 Dose: 5 mg - Labs Labs: 09/01/17 07:30 09/01/17 14:11 PT 11.4 SECONDS (9.4-12.5) 08/30/17 12:53 INR 0.99 (0.93-1.08) 08/30/17 12:53 APTT 26.0 Seconds (25.1-36.5) 08/30/17 12:53 Attending/Attestation - Attestation I have personally seen and examined this patient.: Yes I have fully participated in the care of the patient.: Yes I have reviewed all pertinent clinical information, including history, physical exam and plan: Yes Notes (Text): 09/01/17 36 year old male with past medical history of multiple CVAs, diabetes, hypertension and CKD who presented with complaint of worsening vision for the past few days. He was seen by his networking specialist who recommended neurologic imaging. MRI brain was not able to be obtained secondary to presence of bladder pacemaker. CT head and carotid dopplers were negative for acute findings. Neurology evaluation was appreciated. PT evaluation is also following and recommended outpatient PT. Patient is on aspirin and statin. He was also found to have acute on chronic renal failure and worsening anemia, possibly anemia of chronic renal disease. Nephrology is following. He is on po iron and also received aranesp. Hematology evaluation is requested. For hypertension he is on clonidine, imdur, labetalol and hydralazine and started on IV lasix yesterday. Continue with levemir and insulin ss for diabetes. Sierra Roach MD Hospitalist.
--- NOTE | 2017-09-01 14:47 | CP.PCM.PN ---
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 Hypertension control with meds as ordered. Patient not on ACEI/ARB likely due to advanced renal insuff and hyperkalemia Monitor I/O, daily weights and renal function while in hospital continue with iron supplements. MVI and dose of aransep 60 mcg on 08/31/17 was given will start renvela for hyperphos pth pending Dose meds/antibiotics for reduced GFR. Avoid fleets enema/magnesium based laxatives. Avoid nephrotoxins/NSAIDs/ iodinated contrast (unless needed emergently) Glycemic control, renal diet Further work up for as per primary team. S: seen and examined no complaints Physical Examination: General Appearance: Comfortable, in no acute respiratory distress, co- operative. obese Vitals reviewed and noted as below Head; Atraumatic, normocephalic ENT: no ulcers no thrush. Tongue is midline. Oropharynx: no rash or ulcers. EYES: Pupils are equal, round and reactive to light accommodation. Eye muscles and extraocular movement intact. Sclera is anicteric. Neck; supple no lymphadenopathy, no thyromegaly or bruit Lungs: Normal respiratory rate/effort. Breath sounds clear and bilateral equal Heart: Normal rate. s1s2 normal. No rub or gallop. Extremities: 2+ edema. No varicose veins Neurological: Patient is alert, awake and oriented x 3 chronic leg paresis Skin: dry and warm. Normal turgor. No rash. Palpitation: Normal elasticity for age Abdomen: Abdomen is soft. Bowel sounds +. There is no abdominal tenderness, no guarding/rigidity or organomegaly Psych: normal insight. normal affect MSK: no specific joint tenderness or swelling. Digits and nails normal, no deformity : kidney or bladder not palpable. has lópez catheter Labs/imaging/EKG reviewed. Past medical history, past surgical history, social history, allergy reviewed and noted as below Family hx; no hx of CKD. non contributory Objective - Vital Signs/Intake and Output Vital Signs (last 24 hours): Temp Pulse Resp BP Pulse Ox 97.8 F 66 20 162/90 H 96 09/01/17 06:00 09/01/17 14:24 09/01/17 06:00 09/01/17 14:24 09/01/17 10:00 Intake and Output: 09/01/17 09/01/17 06:59 18:59 Intake Total 1260 1080 Output Total 1200 750 Balance 60 330 - Medications Medications: Current Medications Aspirin (Ecotrin) 81 mg PO DAILY [facility] Last Admin: 09/01/17 09:57 Dose: 81 mg Atorvastatin Calcium (Lipitor) 20 mg PO DIN [facility] Last Admin: 08/31/17 17:24 Dose: 20 mg Clonidine HCl (Catapres-Tts3 0.3 Mg/24 Hr) 1 patch TD Q7D@1000 [facility] Docusate Sodium (Colace) 100 mg PO BID [facility] Last Admin: 09/01/17 09:58 Dose: 100 mg Ferrous Sulfate (Feosol Liq) 300 mg PO TID [facility] Last Admin: 09/01/17 09:58 Dose: 300 mg Furosemide (Lasix) 40 mg IVP Q12 [facility] Last Admin: 09/01/17 09:58 Dose: 40 mg Hydralazine HCl (Apresoline) 50 mg PO Q8 [facility] Last Admin: 09/01/17 14:24 Dose: 50 mg Insulin Detemir (Levemir) 12 unit SC Q12H [facility] Last Admin: 09/01/17 10:30 Dose: 12 unit Insulin Human Lispro (Humalog Med) 0 units SC ACHS [facility] PRN Reason: Protocol Last Admin: 09/01/17 11:34 Dose: 1 units Isosorbide Dinitrate (Isordil) 20 mg PO BID [facility] Last Admin: 09/01/17 09:57 Dose: 20 mg Labetalol HCl (Trandate) 400 mg PO TID [facility] Last Admin: 09/01/17 14:24 Dose: 400 mg Levothyroxine Sodium (Synthroid) 175 mcg PO 0600 [facility] Last Admin: 09/01/17 05:19 Dose: 175 mcg Oxycodone/Acetaminophen (Percocet 10/325 Mg Tab) 1 tab PO Q6H PRN PRN Reason: Pain, moderate (4-7) Last Admin: 08/31/17 22:27 Dose: 1 tab Pantoprazole Sodium (Protonix Ec Tab) 40 mg PO ACB [facility] Last Admin: 09/01/17 09:56 Dose: 40 mg Polyethylene Glycol (Miralax) 17 gm PO BID [facility] Last Admin: 09/01/17 10:00 Dose: 17 gm Tamsulosin HCl (Flomax) 0.4 mg PO DAILY [facility] Last Admin: 09/01/17 09:56 Dose: 0.4 mg Vitamin B Complex/Vit C/Folic Acid (Nephro-Devi) 1 tab PO 0800 [facility] Last Admin: 09/01/17 09:56 Dose: 1 tab Zolpidem Tartrate (Ambien) 5 mg PO HS PRN; Protocol PRN Reason: Insomnia - Labs Labs: 09/01/17 07:30 09/01/17 14:11 PT 11.4 SECONDS (9.4-12.5) 08/30/17 12:53 INR 0.99 (0.93-1.08) 08/30/17 12:53 APTT 26.0 Seconds (25.1-36.5) 08/30/17 12:53
--- NOTE | 2017-09-01 19:21 | CP.PCM.CON ---
History of Present Illness - History of Present Illness History of Present Illness: 36 year old male with a history of multiple CVA's, neurogenic bladder with chronic indwelling lópez, HTN, HL, CAD s/p [place], [place]/CKD with nephrotic proteinuria, factor V Leiden heterozygous mutation, admitted with blurry vision and concern for TIA/CVA. The patient notes to decline in the vision of the right eye. He saw his eye doctor who sent him to the ER for brain imaging to rule out CVA. He notes to taking both aspirin and plavix when this episode occurred. Past medical history: multiple CVA's, neurogenic bladder with chronic indwelling lópez, HTN, HL, CAD s/p [place], [place]/CKD with nephrotic proteinuria, factor V Leiden heterozygous mutation Past surgical history: Bladder pacemaker Family history: Grandmother had [place] and strokes Social history: Denies tobacco, alcohol, and illicit drug use Allergies: Bactrim Review of systems: All remaining review of systems including HEENT, cardiovascular, respiratory, gastrointestinal, genitourinary, musculoskeletal, dermatologic, neurologic, and psychiatric are negative unless mentioned in the HPI. Past Patient History - Infectious Disease Hx of Infectious Diseases: None - Tetanus Immunizations Tetanus Immunization: Unknown - Past Medical History & Family History Past Medical History?: Yes - Past Social History Smoking Status: Never Smoked - CARDIAC Hx Cardiac Disorders: Yes Hx Congestive Heart Failure: No Hx Hypercholesterolemia: Yes Hx Hypertension: Yes - PULMONARY Hx Chronic Obstructive Pulmonary Disease (COPD): No - NEUROLOGICAL HX Cerebrovascular Accident: Yes (12/2013 Bilateral Lower extremities flaccid) - HEENT Hx HEENT Problems: Yes (wears glasses, recent vision loss due to cva) Hx Blind: No Hx Cataracts: Yes Hx Deafness: No Hx Difficulty Chewing: No Hx Epistaxis: No Hx Glaucoma: No Hx Macular Degeneration: Yes - RENAL Hx Chronic Kidney Disease: Yes ("interstem, 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") Hx Pyelonephritis: Yes - ENDOCRINE/METABOLIC Hx Diabetes Mellitus Type 1: Yes (dx at age 10.) Hx Diabetes Mellitus Type 2: No Hx Hypothyroidism: Yes (synthroid) - HEMATOLOGICAL/ONCOLOGICAL Hx Blood Disorders: No Hx AIDS: No Hx Anemia: No Hx Cancer: No Hx Chemotherapy: No Hx Cirrhosis: No Hx Hemophilia: No Hx Hepatitis A: No Hx Hepatitis B: No Hx Hepatitis C: No Hx Human Immunodeficiency Virus (HIV): No Hx Metastesis: No Hx Shingles: No Hx Unexplained Bleeding: No - INTEGUMENTARY Hx Dermatological Problems: No Hx Basil Cell: No Hx Eczema: No Hx Melanoma: No Hx Psoriasis: No Hx Squamous Cell: No - MUSCULOSKELETAL/RHEUMATOLOGICAL Hx Falls: Yes - GASTROINTESTINAL Hx Gastrointestinal Disorders: Yes (colitis) - GENITOURINARY/GYNECOLOGICAL Hx Genitourinary Disorders: Yes (chronic lópez) Hx Incontinence: Yes Hx Urinary Tract Infection: Yes - PSYCHIATRIC Hx Psychophysiologic Disorder: Yes Hx Anxiety: Yes - SURGICAL HISTORY Hx Surgeries: Yes Hx Cardiac Catheterization: No Hx Coronary Stent: No Other/Comment: bladder surgery - ANESTHESIA Hx Anesthesia: Yes Hx Anesthesia Reactions: No Hx Malignant Hyperthermia: No Meds Allergies/Adverse Reactions: Allergies Allergy/AdvReac Type Severity Reaction Status Date / Time sulfamethoxazole Allergy ANAPHYLAXIS Verified 01/16/17 13:45 [From Bactrim] trimethoprim [From Bactrim] Allergy ANAPHYLAXIS Verified 01/16/17 13:45 - Medications Medications: Current Medications Aspirin (Ecotrin) 81 mg PO DAILY [facility] Last Admin: 09/01/17 09:57 Dose: 81 mg Atorvastatin Calcium (Lipitor) 20 mg PO DIN [facility] Last Admin: 09/01/17 16:38 Dose: 20 mg Clonidine HCl (Catapres-Tts3 0.3 Mg/24 Hr) 1 patch TD Q7D@1000 [facility] Docusate Sodium (Colace) 100 mg PO BID [facility] Last Admin: 09/01/17 17:21 Dose: 100 mg Ferrous Sulfate (Feosol Liq) 300 mg PO TID [facility] Last Admin: 09/01/17 17:22 Dose: 300 mg Furosemide (Lasix) 40 mg IVP Q12 [facility] Last Admin: 09/01/17 09:58 Dose: 40 mg Hydralazine HCl (Apresoline) 50 mg PO Q8 [facility] Last Admin: 09/01/17 14:24 Dose: 50 mg Insulin Detemir (Levemir) 12 unit SC Q12H [facility] Last Admin: 09/01/17 10:30 Dose: 12 unit Insulin Human Lispro (Humalog Med) 0 units SC ACHS [facility] PRN Reason: Protocol Last Admin: 09/01/17 16:09 Dose: Not Given Isosorbide Dinitrate (Isordil) 20 mg PO BID [facility] Last Admin: 09/01/17 17:21 Dose: 20 mg Labetalol HCl (Trandate) 400 mg PO TID [facility] Last Admin: 09/01/17 17:21 Dose: 400 mg Levothyroxine Sodium (Synthroid) 175 mcg PO 0600 [facility] Last Admin: 09/01/17 05:19 Dose: 175 mcg Oxycodone/Acetaminophen (Percocet 10/325 Mg Tab) 1 tab PO Q6H PRN PRN Reason: Pain, moderate (4-7) Last Admin: 08/31/17 22:27 Dose: 1 tab Pantoprazole Sodium (Protonix Ec Tab) 40 mg PO ACB [facility] Last Admin: 09/01/17 09:56 Dose: 40 mg Polyethylene Glycol (Miralax) 17 gm PO BID [facility] Last Admin: 09/01/17 17:24 Dose: 17 gm Sevelamer HCl (Renagel) 800 mg PO TID [facility] Last Admin: 09/01/17 17:22 Dose: 800 mg Tamsulosin HCl (Flomax) 0.4 mg PO DAILY [facility] Last Admin: 09/01/17 09:56 Dose: 0.4 mg Vitamin B Complex/Vit C/Folic Acid (Nephro-Devi) 1 tab PO 0800 [facility] Last Admin: 09/01/17 09:56 Dose: 1 tab Zolpidem Tartrate (Ambien) 5 mg PO HS PRN; Protocol PRN Reason: Insomnia Physical Exam - Head Exam Head Exam: ATRAUMATIC - Eye Exam Eye Exam: Normal appearance - ENT Exam ENT Exam: Mucous Membranes Dry - Respiratory Exam Respiratory Exam: NORMAL BREATHING PATTERN - Cardiovascular Exam Cardiovascular Exam: +S1, +S2 - GI/Abdominal Exam GI & Abdominal Exam: Normal Bowel Sounds - Neurological Exam Neurological exam: Oriented x3 - Psychiatric Exam Psychiatric exam: Normal Affect, Normal Mood - Skin Skin Exam: Warm Results - Vital Signs Recent Vital Signs: Last Vital Signs Temp 97.7 F 09/01/17 17:12 Pulse 66 09/01/17 18:00 Resp 20 09/01/17 17:12 BP 129/66 09/01/17 17:21 Pulse Ox 96 09/01/17 17:12 - Labs Result Diagrams: 09/01/17 07:30 09/01/17 14:11 Labs: Laboratory Results - last 24 hr 08/31/17 08/31/17 08/31/17 19:38 20:57 21:58 WBC RBC Hgb Hct MCV MCH MCHC RDW Plt Count MPV Gran % Lymph % (Auto) [place] % (Auto) Eos % (Auto) Baso % (Auto) Gran # Lymph # (Auto) [place] # (Auto) Eos # (Auto) Baso # (Auto) Sodium Potassium Chloride Carbon Dioxide Anion Gap BUN Creatinine Est GFR ( Amer) Est GFR (Non-Af Amer) POC Glucose (mg/dL) 250 H 268 H 285 H Random Glucose Calcium Phosphorus Magnesium Total Bilirubin AST ALT Alkaline Phosphatase Total Protein Albumin Globulin Albumin/Globulin Ratio 25-OH Vitamin D Total 09/01/17 09/01/17 09/01/17 02:27 07:15 07:30 WBC 6.4 RBC 2.67 L Hgb 7.7 L Hct 23.6 L MCV 88.4 MCH 28.8 MCHC 32.6 RDW 14.1 Plt Count 313 MPV 9.5 Gran % 58.3 Lymph % (Auto) 26.3 [place] % (Auto) 8.8 H Eos % (Auto) 5.5 H Baso % (Auto) 1.1 Gran # 3.70 Lymph # (Auto) 1.7 [place] # (Auto) 0.6 Eos # (Auto) 0.4 Baso # (Auto) 0.07 Sodium Potassium Chloride Carbon Dioxide Anion Gap BUN Creatinine Est GFR ( Amer) Est GFR (Non-Af Amer) POC Glucose (mg/dL) 283 H 232 H Random Glucose Calcium Phosphorus Magnesium Total Bilirubin AST ALT Alkaline Phosphatase Total Protein Albumin Globulin Albumin/Globulin Ratio 25-OH Vitamin D Total 09/01/17 09/01/17 09/01/17 07:30 07:30 11:04 WBC RBC Hgb Hct MCV MCH MCHC RDW Plt Count MPV Gran % Lymph % (Auto) [place] % (Auto) Eos % (Auto) Baso % (Auto) Gran # Lymph # (Auto) [place] # (Auto) Eos # (Auto) Baso # (Auto) Sodium 137 Potassium 5.2 H Chloride 107 Carbon Dioxide 22 Anion Gap 14 BUN 63 H Creatinine 4.9 H Est GFR ( Amer) 16 Est GFR (Non-Af Amer) 14 POC Glucose (mg/dL) 185 H Random Glucose 223 H Calcium 7.9 L Phosphorus 5.8 H Magnesium Total Bilirubin 0.2 AST 13 L D ALT 25 Alkaline Phosphatase 79 Total Protein 5.6 L Albumin 2.9 L Globulin 2.7 Albumin/Globulin Ratio 1.1 25-OH Vitamin D Total 13.0 L 09/01/17 09/01/17 14:11 15:59 WBC RBC Hgb Hct MCV MCH MCHC RDW Plt Count MPV Gran % Lymph % (Auto) [place] % (Auto) Eos % (Auto) Baso % (Auto) Gran # Lymph # (Auto) [place] # (Auto) Eos # (Auto) Baso # (Auto) Sodium Potassium 5.2 H Chloride Carbon Dioxide Anion Gap BUN Creatinine Est GFR ( Amer) Est GFR (Non-Af Amer) POC Glucose (mg/dL) 141 H Random Glucose Calcium Phosphorus Magnesium 2.3 H Total Bilirubin AST ALT Alkaline Phosphatase Total Protein Albumin Globulin Albumin/Globulin Ratio 25-OH Vitamin D Total Assessment & Plan (1) Factor V Leiden mutation Assessment and Plan: heterozygous mutation prior CVA and [place] ? acute CVA vs TIA; event occurred while on aspirin and plavix per patient given this, would recommend therapeutic anticoagulation. Would benefit from NOAC given difficulty monitoring INR with coumadin; recommend checking with neurology on timing of anticoagulation initiation will check antithrombin III level given nephrotic proteinuria. Status: Acute (2) Anemia Assessment and Plan: hypoproliferative erythroid response anemia of CKD and iron deficiency will start IV iron, EPO per renal check FOBT Thank you for this interesting consult. Status: Acute
--- NOTE | 2017-09-02 00:13 | CP.PCM.PN ---
Subjective - Date & Time of Evaluation Date of Evaluation: 07/02/17 Time of Evaluation: 15:40 - Subjective Subjective: Mr. cho is well, with improving vision in right eye, no new complaints. on exam: Can sense finger movements in his right eye. Left eye is normal. NO movement in lower limbs bilaterally. +1 dtr ul andll bl. Toes downgoing . No clonus. Objective - Vital Signs/Intake and Output Vital Signs (last 24 hours): Temp Pulse Resp BP Pulse Ox 97.7 F 70 20 171/91 H 96 09/01/17 17:12 09/01/17 21:47 09/01/17 17:12 09/01/17 21:48 09/01/17 17:12 Intake and Output: 09/01/17 09/02/17 18:59 06:59 Intake Total 1080 600 Output Total 750 500 Balance 330 100 - Medications Medications: Current Medications Aspirin (Ecotrin) 81 mg PO DAILY [facility] Last Admin: 09/01/17 09:57 Dose: 81 mg Atorvastatin Calcium (Lipitor) 20 mg PO DIN [facility] Last Admin: 09/01/17 16:38 Dose: 20 mg Clonidine HCl (Catapres-Tts3 0.3 Mg/24 Hr) 1 patch TD Q7D@1000 [facility] Docusate Sodium (Colace) 100 mg PO BID [facility] Last Admin: 09/01/17 17:21 Dose: 100 mg Ferrous Sulfate (Feosol Liq) 300 mg PO TID [facility] Last Admin: 09/01/17 17:22 Dose: 300 mg Furosemide (Lasix) 40 mg IVP Q12 [facility] Last Admin: 09/01/17 21:48 Dose: 40 mg Hydralazine HCl (Apresoline) 50 mg PO Q8 [facility] Last Admin: 09/01/17 21:47 Dose: 50 mg Iron Sucrose 200 mg/ Sodium (Chloride) 110 mls @ 110 mls/hr IVPB DAILY [facility] Stop: 09/07/17 10:01 Insulin Detemir (Levemir) 12 unit SC Q12H [facility] Last Admin: 09/01/17 21:51 Dose: 12 unit Insulin Human Lispro (Humalog Med) 0 units SC ACHS [facility] PRN Reason: Protocol Last Admin: 09/01/17 21:43 Dose: Not Given Isosorbide Dinitrate (Isordil) 20 mg PO BID [facility] Last Admin: 09/01/17 17:21 Dose: 20 mg Labetalol HCl (Trandate) 400 mg PO TID [facility] Last Admin: 09/01/17 17:21 Dose: 400 mg Levothyroxine Sodium (Synthroid) 175 mcg PO 0600 [facility] Last Admin: 09/01/17 05:19 Dose: 175 mcg Oxycodone/Acetaminophen (Percocet 10/325 Mg Tab) 1 tab PO Q6H PRN PRN Reason: Pain, moderate (4-7) Last Admin: 08/31/17 22:27 Dose: 1 tab Pantoprazole Sodium (Protonix Ec Tab) 40 mg PO ACB [facility] Last Admin: 09/01/17 09:56 Dose: 40 mg Polyethylene Glycol (Miralax) 17 gm PO BID [facility] Last Admin: 09/01/17 17:24 Dose: 17 gm Sevelamer HCl (Renagel) 800 mg PO TID [facility] Last Admin: 09/01/17 17:22 Dose: 800 mg Tamsulosin HCl (Flomax) 0.4 mg PO DAILY [facility] Last Admin: 09/01/17 09:56 Dose: 0.4 mg Vitamin B Complex/Vit C/Folic Acid (Nephro-Devi) 1 tab PO 0800 [facility] Last Admin: 09/01/17 09:56 Dose: 1 tab Zolpidem Tartrate (Ambien) 5 mg PO HS PRN; Protocol PRN Reason: Insomnia Last Admin: 09/01/17 21:46 Dose: 5 mg - Labs Labs: 09/01/17 07:30 09/01/17 14:11 PT 11.4 SECONDS (9.4-12.5) 08/30/17 12:53 INR 0.99 (0.93-1.08) 08/30/17 12:53 APTT 26.0 Seconds (25.1-36.5) 08/30/17 12:53 Assessment and Plan - Assessment and Plan (Free Text) Assessment: 36 yr old male with 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 PLan: 1. Appreciate Dr. Beckman consult. 2. Continue aspirin and plavix. Will consider xarelto 3. PT/st/ot 4. Echo with bubble study. Dr. ortiz
[2017-09-02 01:44] LABS: PH,URINE 6.5 (4.7-8.0); URINE BILIRUBIN NEGATIVE (NEGATIVE); URINE BLOOD TRACE-INTACT (NEGATIVE); URINE GLUCOSE (UA) 100 mg/dL (NEGATIVE); URINE LEUKOCYTE ESTERASE SMALL Leu/uL (NEGATIVE); URINE PROTEIN 100 mg/dL (<30 mg/dL); URINE UROBILINOGEN 0.2 E.U./dL (<1 E.U./dL)
[2017-09-02 01:45] LABS: URINE APPEARANCE SL CLOUDY (CLEAR); URINE COLOR STRAW (YELLOW)
[2017-09-02 01:56] LABS: URINE RBC 0 - 2 /hpf (0-2)
[2017-09-02 01:57] LABS: URINE BACTERIA FEW (NEG); URINE EPITHELIAL CELLS 0 - 2 /hpf (0-5)
[2017-09-02] MEDS: Levothyroxine 175 MCG TAB PO SCH (06:01)
[2017-09-02 07:51] LABS: BASO # 0.05 K/mm3 (0.0-2.0); BASO % 0.5 % (0.0-3.0); EOS # 0.4 (0.0-0.7); EOS % 3.6 % (1.5-5.0); GRAN # 8.29 (1.4-6.5); GRAN % 76.1 % (50.0-68.0); HEMOGLOBIN 8.1 g/dL (14.0-18.0); LYMPH # 1.2 (1.2-3.4); MEAN CELL VOLUME 87.7 fl (80.0-105.0); MEAN CORPUSCULAR HEMOGLOBIN 28.5 pg (25.0-35.0); MEAN CORPUSCULAR HGB CONC 32.5 g/dl (31.0-37.0); MONO % 8.8 % (1.0-6.0); RBC 2.84 10^6/uL (3.5-6.1); RED CELL DISTRIBUTION WIDTH 14.1 % (11.5-14.5); WHITE BLOOD COUNT 10.9 10^3/ul (4.5-11.0)
[2017-09-02 08:16] LABS: ALB/GLOB RATIO 1.1 (1.1-1.8); ALBUMIN 3.1 g/dL (3.0-4.8)
[2017-09-02] MEDS: Insulin Lispro (humaLOG) MEDIUM Coverage SC SCH ×4 (08:18→23:05)
[2017-09-02] MEDS: Ferrous Sulfate 300 mg/5 mL Liq UD PO SCH ×3 (10:04→17:32)
[2017-09-02] MEDS: Insulin Detemir 100 units/ml Vial (Levemir) SC SCH ×2 (10:08→23:07)
[2017-09-02] MEDS: Pantoprazole 40 mg EC Tab PO SCH (10:09)
[2017-09-02] MEDS: Multivitamin Vitamin B Complex (Nephro-Vite) Tab PO SCH (10:09)
[2017-09-02] MEDS: POLYETHYLENE GLYCOL 3350 17 GM/Dose PACKET PO SCH ×2 (13:06→17:31)
--- NOTE | 2017-09-02 15:16 | CP.PCM.PN ---
Subjective - Date & Time of Evaluation Date of Evaluation: 09/02/17 Time of Evaluation: 12:10 - Subjective Subjective: RENAL FOLLOW UP Assessment: Acute Kidney Injury (N17.9) versus progression of CKD Chronic Kidney Disease Stage 4 (N18.4) with nephrotic proteinuria likely due to diabetic nephropathy (E11.22), atrophic Rt Kidney, hx of recurrent CLIFTON chronic Anemia, Hypertension (I12.9), hx of CVA, CAD, chronic indwelling lópez Vit D deficiency, chronic edema, hyperphosphatemia Plan No acute need for renal replacement therapy at this time. Hypertension control with meds as ordered - inc hydral to 100 mg today Patient not on ACEI/ARB likely due to advanced renal insuff and hyperkalemia Monitor I/O, daily weights and renal function while in hospital continue with iron supplements. MVI and dose of aransep 60 mcg on 08/31/17 was given on iv iron f/u heme onc on renvela pth pending S: seen and examined no complaints states vision is improving Physical Examination: General Appearance: Comfortable, in no acute respiratory distress, co- operative. obese Vitals reviewed and noted as below Head; Atraumatic, normocephalic ENT: no ulcers no thrush. Tongue is midline. Oropharynx: no rash or ulcers. EYES: Pupils are equal, round and reactive to light accommodation. Eye muscles and extraocular movement intact. Sclera is anicteric. Neck; supple no lymphadenopathy, no thyromegaly or bruit Lungs: Normal respiratory rate/effort. Breath sounds clear and bilateral equal Heart: Normal rate. s1s2 normal. No rub or gallop. Extremities: 2+ edema. No varicose veins Neurological: Patient is alert, awake and oriented x 3 chronic leg paresis Skin: dry and warm. Normal turgor. No rash. Palpitation: Normal elasticity for age Abdomen: Abdomen is soft. Bowel sounds +. There is no abdominal tenderness, no guarding/rigidity or organomegaly Psych: normal insight. normal affect MSK: no specific joint tenderness or swelling. Digits and nails normal, no deformity : kidney or bladder not palpable. has lópez catheter Labs/imaging/EKG reviewed. Past medical history, past surgical history, social history, allergy reviewed and noted as below Family hx; no hx of CKD. non contributory Objective - Vital Signs/Intake and Output Vital Signs (last 24 hours): Temp Pulse Resp BP Pulse Ox 98.2 F 78 20 156/80 H 98 09/02/17 06:00 09/02/17 06:00 09/02/17 06:00 09/02/17 10:04 09/02/17 06:00 Intake and Output: 09/02/17 09/02/17 06:59 18:59 Intake Total 1200 1080 Output Total 3250 4000 Balance -2050 -2920 - Medications Medications: Current Medications Aspirin (Ecotrin) 81 mg PO DAILY [facility] Last Admin: 09/02/17 10:05 Dose: 81 mg Atorvastatin Calcium (Lipitor) 20 mg PO DIN [facility] Last Admin: 09/01/17 16:38 Dose: 20 mg Clonidine HCl (Catapres-Tts3 0.3 Mg/24 Hr) 1 patch TD Q7D@1000 [facility] Docusate Sodium (Colace) 100 mg PO BID [facility] Last Admin: 09/02/17 10:04 Dose: 100 mg Ferrous Sulfate (Feosol Liq) 300 mg PO TID [facility] Last Admin: 09/02/17 13:06 Dose: 300 mg Furosemide (Lasix) 40 mg IVP Q12 [facility] Last Admin: 09/02/17 10:04 Dose: 40 mg Hydralazine HCl (Apresoline) 75 mg PO Q8 [facility] Last Admin: 09/02/17 13:05 Dose: 75 mg Iron Sucrose 200 mg/ Sodium (Chloride) 110 mls @ 110 mls/hr IVPB DAILY [facility] Stop: 09/07/17 10:01 Last Admin: 09/02/17 10:04 Dose: 110 mls/hr Insulin Detemir (Levemir) 12 unit SC Q12H [facility] Last Admin: 09/02/17 10:08 Dose: 12 unit Insulin Human Lispro (Humalog Med) 0 units SC ACHS [facility] PRN Reason: Protocol Last Admin: 09/02/17 13:05 Dose: 1 units Isosorbide Dinitrate (Isordil) 20 mg PO BID [facility] Last Admin: 09/02/17 10:05 Dose: 20 mg Labetalol HCl (Trandate) 400 mg PO TID [facility] Last Admin: 09/02/17 13:06 Dose: 400 mg Lactulose (Enulose) 30 gm PO DAILY [facility] Last Admin: 09/02/17 13:06 Dose: 30 gm Levothyroxine Sodium (Synthroid) 175 mcg PO 0600 [facility] Last Admin: 09/02/17 06:01 Dose: 175 mcg Oxycodone/Acetaminophen (Percocet 10/325 Mg Tab) 1 tab PO Q6H PRN PRN Reason: Pain, moderate (4-7) Last Admin: 08/31/17 22:27 Dose: 1 tab Pantoprazole Sodium (Protonix Ec Tab) 40 mg PO ACB [facility] Last Admin: 09/02/17 10:09 Dose: 40 mg Polyethylene Glycol (Miralax) 17 gm PO BID [facility] Last Admin: 09/02/17 13:06 Dose: Not Given Sevelamer HCl (Renagel) 800 mg PO TID [facility] Last Admin: 09/02/17 13:05 Dose: 800 mg Tamsulosin HCl (Flomax) 0.4 mg PO DAILY [facility] Last Admin: 09/02/17 10:04 Dose: 0.4 mg Vitamin B Complex/Vit C/Folic Acid (Nephro-Devi) 1 tab PO 0800 [facility] Last Admin: 09/02/17 10:09 Dose: 1 tab Zolpidem Tartrate (Ambien) 5 mg PO HS PRN; Protocol PRN Reason: Insomnia Last Admin: 09/01/17 21:46 Dose: 5 mg - Labs Labs: 09/02/17 07:35 09/02/17 07:35 PT 11.4 SECONDS (9.4-12.5) 08/30/17 12:53 INR 0.99 (0.93-1.08) 08/30/17 12:53 APTT 26.0 Seconds (25.1-36.5) 08/30/17 12:53
--- NOTE | 2017-09-02 15:22 | CP.PCM.PN ---
<Sunni Hillman - Last Filed: 09/03/17 06:07> Subjective - Date & Time of Evaluation Date of Evaluation: 09/02/17 Time of Evaluation: 15:18 - Subjective Subjective: Patient reports not having a BM. Requests his home dose of lactulose. Otherwise , patient denies any CP, N/V/D. Objective - Vital Signs/Intake and Output Vital Signs (last 24 hours): Temp Pulse Resp BP Pulse Ox 98.2 F 78 20 156/80 H 98 09/02/17 06:00 09/02/17 06:00 09/02/17 06:00 09/02/17 10:04 09/02/17 06:00 Intake and Output: 09/02/17 09/02/17 06:59 18:59 Intake Total 1200 1080 Output Total 3250 4000 Balance -2049 -0 - Medications Medications: Current Medications Aspirin (Ecotrin) 81 mg PO DAILY [facility] Last Admin: 09/02/17 10:05 Dose: 81 mg Atorvastatin Calcium (Lipitor) 20 mg PO DIN [facility] Last Admin: 09/01/17 16:38 Dose: 20 mg Clonidine HCl (Catapres-Tts3 0.3 Mg/24 Hr) 1 patch TD Q7D@1000 [facility] Docusate Sodium (Colace) 100 mg PO BID [facility] Last Admin: 09/02/17 10:04 Dose: 100 mg Ferrous Sulfate (Feosol Liq) 300 mg PO TID [facility] Last Admin: 09/02/17 13:06 Dose: 300 mg Furosemide (Lasix) 40 mg IVP Q12 [facility] Last Admin: 09/02/17 10:04 Dose: 40 mg Hydralazine HCl (Apresoline) 75 mg PO Q8 [facility] Last Admin: 09/02/17 13:05 Dose: 75 mg Iron Sucrose 200 mg/ Sodium (Chloride) 110 mls @ 110 mls/hr IVPB DAILY [facility] Stop: 09/07/17 10:01 Last Admin: 09/02/17 10:04 Dose: 110 mls/hr Ceftriaxone Sodium (Rocephin 1 Gram Ivpb) 1 gm in 100 mls @ 100 mls/hr IVPB DAILY [facility] PRN Reason: Protocol Insulin Detemir (Levemir) 12 unit SC Q12H [facility] Last Admin: 09/02/17 10:08 Dose: 12 unit Insulin Human Lispro (Humalog Med) 0 units SC ACHS [facility] PRN Reason: Protocol Last Admin: 09/02/17 13:05 Dose: 1 units Isosorbide Dinitrate (Isordil) 20 mg PO BID [facility] Last Admin: 09/02/17 10:05 Dose: 20 mg Labetalol HCl (Trandate) 400 mg PO TID [facility] Last Admin: 09/02/17 13:06 Dose: 400 mg Lactulose (Enulose) 30 gm PO DAILY [facility] Last Admin: 09/02/17 13:06 Dose: 30 gm Levothyroxine Sodium (Synthroid) 175 mcg PO 0600 [facility] Last Admin: 09/02/17 06:01 Dose: 175 mcg Oxycodone/Acetaminophen (Percocet 10/325 Mg Tab) 1 tab PO Q6H PRN PRN Reason: Pain, moderate (4-7) Last Admin: 08/31/17 22:27 Dose: 1 tab Pantoprazole Sodium (Protonix Ec Tab) 40 mg PO ACB [facility] Last Admin: 09/02/17 10:09 Dose: 40 mg Polyethylene Glycol (Miralax) 17 gm PO BID [facility] Last Admin: 09/02/17 13:06 Dose: Not Given Sevelamer HCl (Renagel) 800 mg PO TID [facility] Last Admin: 09/02/17 13:05 Dose: 800 mg Tamsulosin HCl (Flomax) 0.4 mg PO DAILY [facility] Last Admin: 09/02/17 10:04 Dose: 0.4 mg Vitamin B Complex/Vit C/Folic Acid (Nephro-Devi) 1 tab PO 0800 [facility] Last Admin: 09/02/17 10:09 Dose: 1 tab Zolpidem Tartrate (Ambien) 5 mg PO HS PRN; Protocol PRN Reason: Insomnia Last Admin: 09/01/17 21:46 Dose: 5 mg - Labs Labs: 09/02/17 07:35 09/02/17 07:35 PT 11.4 SECONDS (9.4-12.5) 08/30/17 12:53 INR 0.99 (0.93-1.08) 08/30/17 12:53 APTT 26.0 Seconds (25.1-36.5) 08/30/17 12:53 - Constitutional Appears: Non-toxic - Head Exam Head Exam: ATRAUMATIC, NORMOCEPHALIC - Eye Exam Eye Exam: EOMI, Normal appearance - ENT Exam ENT Exam: Mucous Membranes Moist - Neck Exam Neck Exam: Normal Inspection - Respiratory Exam Respiratory Exam: Clear to Ausculation Bilateral, NORMAL BREATHING PATTERN. absent: Accessory Muscle Use - Cardiovascular Exam Cardiovascular Exam: RRR, +S1, +S2 - GI/Abdominal Exam GI & Abdominal Exam: Normal Bowel Sounds. absent: Rebound Additional comments: protuberant - Extremities Exam Extremities Exam: Pedal Edema (3/4 LE edema). absent: Calf Tenderness - Neurological Exam Neurological Exam: Alert, Awake, Oriented x3 - Psychiatric Exam Psychiatric exam: Normal Affect, Normal Mood - Skin Skin Exam: Dry, Intact, Normal Color, Warm Assessment and Plan - Assessment and Plan (Free Text) Assessment: 36 year old male with past medical history of mulitple CVA's, DM, CKD, presents to the ED for right eye vision loss, found to have elevated Cr, anemia: US of LE negative Right visual field lost likely secondary to cholesterol emboli affecting superior opthalmic artery CVA vs ischemic retinal disease -Stable, afebrile -Monitor on telemetry -Patient had a history of multiple CVAs in the past -CT head: negative -Carotid US showed bilateral 0-19 percent proximal ICA stenosis, antegrade flow in both vertebral arteries -MRI brain could not be done due to presence of bladder pacemaker -Continue Aspirin, plavix. -Neurology on consult, help appreciated -Pt's Ophthalmology Dr Matthews consulted, recommended primarily outpatient follow up. In-house opthalmology Dr Belle consulted, recommends following pt's opthalmology recs. -Physical Therapy recommends home, outpatient physical therapy. Normocytic Anemia: mixed: anemia of chronic disease (ACD) and iron deficiency anemia -Hg8.1 today -nephro on board, appreciate recs -aranesp, home feosol -anemia workup reviewed. -F/U stool occult, unless otherwise indicated Elevated Cr: 2/2 CLIFTON on CKD vs worsening CKD -Baseline Cr 2-3 -BUN/CR on admission 65/5.0 today -Nephro on consult, help appreciated History of Hypertension -Continue home medications -added clonidine patch -d/cd IVF -Lasix 40 IV BID - Hydralazine 75 mg TID - Labetaloll 400 mg TID History of NH -Continue Aspirin 81mg - Plavix 75 mg PO daily -EKG showed NSR -LDL 84. lipitor 20 mg daily Diabetes Mellitus Type 1/Peripheral Neuropathy: - HgA1c 7.3 - Levemir 12 u BID - ISS lispro medium CHF (diastolic dysfunction)/Bilateral Lower Extremity Swelling: -Lower extremity doppler negative for DVT -Last echo 07/2016: borderline concentric left ventricular hypertrophy, normal LVEF, grade I abnormal relaxation pattern History of Neurogenic Bladder with Chronic López and UTI -S/P bladder pacemaker -López catheter last changed 6 weeks ago -Will reinsert new lópez -Continue Flomax 0.4mg PO daily - UA reveals UTI, culture ordered - Ceftraixone 1 gm IVP daily History of Hypothyroidism -Continue home synthroid 175 mcg -TSH 6.86, Free T4 1.06. repeat TSH outpatient in 4-6 weeks. Chronic Constipation -Colace 100mg PO BID -Miralax 17gm PO daily prn constipation - Lactulose 30 grams PO daily GI/DVT -Protonix 40mg IV daily -SCDs Case seen and discussed with Dr Roach. Sunni Hillman, PGY1 <Sierra Roach - Last Filed: 09/05/17 07:36> Objective - Vital Signs/Intake and Output Vital Signs (last 24 hours): Temp Pulse Resp BP Pulse Ox 98 F 76 18 141/75 94 L 09/04/17 18:00 09/05/17 06:00 09/04/17 18:00 09/05/17 05:34 09/04/17 18:00 Intake and Output: 09/05/17 09/05/17 06:59 18:59 Intake Total 1440 Output Total 525 Balance 915 - Medications Medications: Current Medications Amlodipine Besylate (Norvasc) 5 mg PO DAILY [facility] Last Admin: 09/04/17 09:55 Dose: 5 mg Aspirin (Ecotrin) 81 mg PO DAILY [facility] Last Admin: 09/04/17 09:52 Dose: 81 mg Atorvastatin Calcium (Lipitor) 20 mg PO DIN [facility] Last Admin: 09/04/17 17:23 Dose: 20 mg Calcium Acetate (Phoslo) 1,334 mg PO WM [facility] Last Admin: 09/04/17 17:23 Dose: 1,334 mg Clonidine HCl (Catapres-Tts3 0.3 Mg/24 Hr) 1 patch TD Q7D@1000 [facility] Docusate Sodium (Colace) 100 mg PO BID [facility] Last Admin: 09/04/17 17:20 Dose: 100 mg Ergocalciferol (Drisdol 50,000 Intl Units Cap) 1 cap PO Q7D [facility] Last Admin: 09/03/17 11:54 Dose: 1 cap Furosemide (Lasix) 40 mg PO DAILY [facility] Last Admin: 09/04/17 09:56 Dose: 40 mg Hydralazine HCl (Apresoline) 75 mg PO Q8 [facility] Last Admin: 09/05/17 05:34 Dose: 75 mg Iron Sucrose 200 mg/ Sodium (Chloride) 110 mls @ 110 mls/hr IVPB DAILY [facility] Stop: 09/07/17 10:01 Last Admin: 09/04/17 09:54 Dose: 110 mls/hr Cefepime HCl (Maxipime 1gm) 1 gm in 100 mls @ 100 mls/hr IVPB [facility] PRN Reason: Protocol Last Admin: 09/04/17 22:16 Dose: 100 mls/hr Insulin Detemir (Levemir) 25 unit SC Q12 [facility] Insulin Human Lispro (Humalog High) 0 units SC ACHS [facility] PRN Reason: Protocol Last Admin: 09/04/17 22:28 Dose: Not Given Isosorbide Dinitrate (Isordil) 20 mg PO BID [facility] Last Admin: 09/04/17 17:21 Dose: 20 mg Labetalol HCl (Trandate) 400 mg PO TID [facility] Last Admin: 09/04/17 17:24 Dose: 400 mg Lactulose (Enulose) 30 gm PO DAILY [facility] Last Admin: 09/04/17 10:03 Dose: Not Given Levothyroxine Sodium (Synthroid) 175 mcg PO 0600 [facility] Last Admin: 09/05/17 05:34 Dose: 175 mcg Ondansetron HCl (Zofran Inj) 4 mg IVP Q4H PRN PRN Reason: Nausea/Vomiting Last Admin: 09/04/17 18:54 Dose: 4 mg Oxycodone/Acetaminophen (Percocet 10/325 Mg Tab) 1 tab PO Q6H PRN PRN Reason: Pain, moderate (4-7) Last Admin: 08/31/17 22:27 Dose: 1 tab Polyethylene Glycol (Miralax) 17 gm PO BID [facility] Last Admin: 09/04/17 17:23 Dose: 17 gm Povidone Iodine (Betadine 10% Topical Soln) 0 ml TOP DAILY [facility] Last Admin: 09/04/17 17:29 Dose: 1 applic Tamsulosin HCl (Flomax) 0.4 mg PO DAILY [facility] Last Admin: 09/04/17 09:53 Dose: 0.4 mg Vitamin B Complex/Vit C/Folic Acid (Nephro-Devi) 1 tab PO 0800 [facility] Last Admin: 09/04/17 09:56 Dose: 1 tab Zolpidem Tartrate (Ambien) 5 mg PO HS PRN; Protocol PRN Reason: Insomnia Last Admin: 09/03/17 23:26 Dose: 5 mg - Labs Labs: 09/05/17 06:00 09/05/17 06:00 PT 11.4 SECONDS (9.4-12.5) 08/30/17 12:53 INR 0.99 (0.93-1.08) 08/30/17 12:53 APTT 26.0 Seconds (25.1-36.5) 08/30/17 12:53 Attending/Attestation - Attestation I have personally seen and examined this patient.: Yes I have fully participated in the care of the patient.: Yes I have reviewed all pertinent clinical information, including history, physical exam and plan: Yes Notes (Text): 36 year old male with past medical history of multiple CVAs, diabetes, hypertension and CKD who presented with complaint of worsening vision for the past few days. 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 MRI brain was not able to be obtained secondary to presence of bladder pacemaker. CT head and carotid dopplers were negative for acute findings. Neurology evaluation was appreciated. PT evaluation is also following and recommended outpatient PT. Patient is on aspirin and statin. Will discuss with neurology and hematology regarding possible anticoagulation. However patient also has acute on chronic anemia, possible secondary to anemia of chronic renal disease. Stool for occult blood is pending. He is on iron and received aranesp as well. He also has acute on chronic renal failure. Nephrology is following. For hypertension he is on clonidine, imdur, labetalol and hydralazine. Hydralazine dose was increased today. He is on iv lasix for LE edema and levemir for diabetes. Sierra Roach MD Hospitalist.
[2017-09-02] MEDS: cefTRIAXone 1 gm 1 GM/100 ML BAG IVPB SCH (17:30)
--- NOTE | 2017-09-02 21:33 | CP.PCM.PN ---
Subjective - Date & Time of Evaluation Date of Evaluation: 09/02/17 Time of Evaluation: 16:00 - Subjective Subjective: Vision improved. Objective - Vital Signs/Intake and Output Vital Signs (last 24 hours): Temp Pulse Resp BP Pulse Ox 99.3 F 84 20 198/108 H 93 L 09/02/17 16:20 09/02/17 18:00 09/02/17 16:20 09/02/17 16:20 09/02/17 16:20 Intake and Output: 09/02/17 09/03/17 18:59 06:59 Intake Total 1080 Output Total 4000 Balance -2920 - Medications Medications: Current Medications Aspirin (Ecotrin) 81 mg PO DAILY [facility] Last Admin: 09/02/17 10:05 Dose: 81 mg Atorvastatin Calcium (Lipitor) 20 mg PO DIN [facility] Last Admin: 09/02/17 17:32 Dose: 20 mg Clonidine HCl (Catapres-Tts3 0.3 Mg/24 Hr) 1 patch TD Q7D@1000 [facility] Clopidogrel Bisulfate (Plavix) 75 mg PO DAILY [facility] Docusate Sodium (Colace) 100 mg PO BID [facility] Last Admin: 09/02/17 17:32 Dose: 100 mg Ferrous Sulfate (Feosol) 324 mg PO TID [facility] Furosemide (Lasix) 40 mg IVP Q12 [facility] Last Admin: 09/02/17 10:04 Dose: 40 mg Hydralazine HCl (Apresoline) 75 mg PO Q8 [facility] Last Admin: 09/02/17 13:05 Dose: 75 mg Iron Sucrose 200 mg/ Sodium (Chloride) 110 mls @ 110 mls/hr IVPB DAILY [facility] Stop: 09/07/17 10:01 Last Admin: 09/02/17 10:04 Dose: 110 mls/hr Ceftriaxone Sodium (Rocephin 1 Gram Ivpb) 1 gm in 100 mls @ 100 mls/hr IVPB DAILY [facility] PRN Reason: Protocol Last Admin: 09/02/17 17:30 Dose: 100 mls/hr Insulin Detemir (Levemir) 12 unit SC Q12H [facility] Last Admin: 09/02/17 10:08 Dose: 12 unit Insulin Human Lispro (Humalog Med) 0 units SC ACHS [facility] PRN Reason: Protocol Last Admin: 09/02/17 17:31 Dose: 3 units Isosorbide Dinitrate (Isordil) 20 mg PO BID [facility] Last Admin: 09/02/17 17:32 Dose: 20 mg Labetalol HCl (Trandate) 400 mg PO TID [facility] Last Admin: 09/02/17 17:32 Dose: 400 mg Lactulose (Enulose) 30 gm PO DAILY [facility] Last Admin: 09/02/17 13:06 Dose: 30 gm Levothyroxine Sodium (Synthroid) 175 mcg PO 0600 [facility] Last Admin: 09/02/17 06:01 Dose: 175 mcg Oxycodone/Acetaminophen (Percocet 10/325 Mg Tab) 1 tab PO Q6H PRN PRN Reason: Pain, moderate (4-7) Last Admin: 08/31/17 22:27 Dose: 1 tab Polyethylene Glycol (Miralax) 17 gm PO BID [facility] Last Admin: 09/02/17 17:31 Dose: 17 gm Sevelamer HCl (Renagel) 800 mg PO TID [facility] Last Admin: 09/02/17 17:32 Dose: 800 mg Tamsulosin HCl (Flomax) 0.4 mg PO DAILY [facility] Last Admin: 09/02/17 10:04 Dose: 0.4 mg Vitamin B Complex/Vit C/Folic Acid (Nephro-Devi) 1 tab PO 0800 [facility] Last Admin: 09/02/17 10:09 Dose: 1 tab Zolpidem Tartrate (Ambien) 5 mg PO HS PRN; Protocol PRN Reason: Insomnia Last Admin: 09/01/17 21:46 Dose: 5 mg - Labs Labs: 09/02/17 07:35 09/02/17 07:35 PT 11.4 SECONDS (9.4-12.5) 08/30/17 12:53 INR 0.99 (0.93-1.08) 08/30/17 12:53 APTT 26.0 Seconds (25.1-36.5) 08/30/17 12:53 - Head Exam Head Exam: ATRAUMATIC - Eye Exam Eye Exam: Normal appearance - ENT Exam ENT Exam: Mucous Membranes Dry - Respiratory Exam Respiratory Exam: NORMAL BREATHING PATTERN - Cardiovascular Exam Cardiovascular Exam: +S1, +S2 - GI/Abdominal Exam GI & Abdominal Exam: Normal Bowel Sounds Assessment and Plan (1) Factor V Leiden mutation Assessment & Plan: heterozygous mutation prior CVA and PA ? acute CVA vs TIA; event occurred while on aspirin and plavix per patient given this, would recommend therapeutic anticoagulation. Would benefit from NOAC given difficulty monitoring INR with coumadin; timing of anticoagulation per neurology f/u antithrombin III level given nephrotic proteinuria. Status: Acute (2) Anemia Assessment & Plan: hypoproliferative erythroid response anemia of CKD and iron deficiency on IV iron and LEONARD per renal f/u FOBT Status: Acute
[2017-09-03 02:21] LABS: CREATININE,RANDOM URINE 79 mg/dL
[2017-09-03] MEDS: Levothyroxine 175 MCG TAB PO SCH (05:44)
[2017-09-03 07:20] LABS: BASO # 0.05 K/mm3 (0.0-2.0); BASO % 0.3 % (0.0-3.0); EOS # 0.2 (0.0-0.7); GRAN # 13.9 (1.4-6.5); GRAN % 80.9 % (50.0-68.0); HEMOGLOBIN 7.9 g/dL (14.0-18.0); LYMPH # 1.4 (1.2-3.4); LYMPH % 7.9 % (22.0-35.0); MEAN CELL VOLUME 88.4 fl (80.0-105.0); MEAN CORPUSCULAR HEMOGLOBIN 28.5 pg (25.0-35.0); MEAN CORPUSCULAR HGB CONC 32.2 g/dl (31.0-37.0); MEAN PLATELET VOLUME 10.2 fl (7.0-11.0); MONO # 1.7 (0.1-0.6); MONO % 9.9 % (1.0-6.0); RBC 2.77 10^6/uL (3.5-6.1); RED CELL DISTRIBUTION WIDTH 14.2 % (11.5-14.5); WHITE BLOOD COUNT 17.2 10^3/ul (4.5-11.0)
[2017-09-03 07:55] LABS: ALB/GLOB RATIO 1.1 (1.1-1.8); ALBUMIN 3.1 g/dL (3.0-4.8); CALCIUM 7.9 mg/dL (8.4-10.5)
[2017-09-03] MEDS: Insulin Lispro (humaLOG) MEDIUM Coverage SC SCH ×4 (08:37→22:05)
[2017-09-03] MEDS: Multivitamin Vitamin B Complex (Nephro-Vite) Tab PO SCH (08:37)
[2017-09-03] MEDS ORDERED: Ergocalciferol 50,000 Intl Units Cap PO SCH (09:45)
[2017-09-03] MEDS: cefTRIAXone 1 gm 1 GM/100 ML BAG IVPB SCH (10:07)
[2017-09-03] MEDS: POLYETHYLENE GLYCOL 3350 17 GM/Dose PACKET PO SCH ×2 (10:10→17:21)
[2017-09-03] MEDS: Insulin Detemir 100 units/ml Vial (Levemir) SC SCH (11:55)
--- NOTE | 2017-09-03 11:58 | CP.PCM.PN ---
<Demetria Headley - Last Filed: 09/03/17 16:32> Subjective - Date & Time of Evaluation Date of Evaluation: 09/03/17 Time of Evaluation: 11:55 - Subjective Subjective: Internal Medicine Progress Note - Hospitalist Service Patient seen and examined at bedside. Per nursing no acute events overnight. Patient states that he has not had a bowel movement in 10 days. He reports having abdominal discomfort with nausea. Blurry vision of the right eye is improving, vision in the left eye returned back to baseline. Objective - Vital Signs/Intake and Output Vital Signs (last 24 hours): Temp Pulse Resp BP Pulse Ox 100.1 F H 63 20 122/63 95 09/03/17 07:58 09/03/17 10:07 09/03/17 07:58 09/03/17 10:08 09/03/17 07:58 Intake and Output: 09/03/17 09/03/17 06:59 18:59 Intake Total 780 Output Total 1800 Balance -1020 - Medications Medications: Current Medications Aspirin (Ecotrin) 81 mg PO DAILY [facility] Last Admin: 09/03/17 10:10 Dose: 81 mg Atorvastatin Calcium (Lipitor) 20 mg PO DIN [facility] Last Admin: 09/02/17 17:32 Dose: 20 mg Clonidine HCl (Catapres-Tts3 0.3 Mg/24 Hr) 1 patch TD Q7D@1000 [facility] Clopidogrel Bisulfate (Plavix) 75 mg PO DAILY [facility] Last Admin: 09/03/17 10:07 Dose: 75 mg Docusate Sodium (Colace) 100 mg PO BID [facility] Last Admin: 09/03/17 10:09 Dose: 100 mg Ergocalciferol (Drisdol 50,000 Intl Units Cap) 1 cap PO Q7D [facility] Furosemide (Lasix) 40 mg PO BID [facility] Last Admin: 09/03/17 10:08 Dose: 40 mg Hydralazine HCl (Apresoline) 75 mg PO Q8 [facility] Last Admin: 09/03/17 05:41 Dose: 75 mg Iron Sucrose 200 mg/ Sodium (Chloride) 110 mls @ 110 mls/hr IVPB DAILY [facility] Stop: 09/07/17 10:01 Last Admin: 09/02/17 10:04 Dose: 110 mls/hr Ceftriaxone Sodium (Rocephin 1 Gram Ivpb) 1 gm in 100 mls @ 100 mls/hr IVPB DAILY [facility] PRN Reason: Protocol Last Admin: 09/03/17 10:07 Dose: 100 mls/hr Insulin Detemir (Levemir) 12 unit SC Q12H [facility] Last Admin: 09/02/17 23:07 Dose: 12 unit Insulin Human Lispro (Humalog Med) 0 units SC ACHS [facility] PRN Reason: Protocol Last Admin: 09/03/17 08:37 Dose: Not Given Isosorbide Dinitrate (Isordil) 20 mg PO BID [facility] Last Admin: 09/03/17 10:09 Dose: 20 mg Labetalol HCl (Trandate) 400 mg PO TID [facility] Last Admin: 09/03/17 10:07 Dose: 400 mg Lactulose (Enulose) 30 gm PO DAILY [facility] Last Admin: 09/03/17 10:06 Dose: 30 gm Levothyroxine Sodium (Synthroid) 175 mcg PO 0600 [facility] Last Admin: 09/03/17 05:44 Dose: 175 mcg Ondansetron HCl (Zofran Inj) 4 mg IVP Q4H PRN PRN Reason: Nausea/Vomiting Oxycodone/Acetaminophen (Percocet 10/325 Mg Tab) 1 tab PO Q6H PRN PRN Reason: Pain, moderate (4-7) Last Admin: 08/31/17 22:27 Dose: 1 tab Polyethylene Glycol (Miralax) 17 gm PO BID [facility] Last Admin: 09/03/17 10:10 Dose: 17 gm Sevelamer HCl (Renagel) 800 mg PO TID [facility] Last Admin: 09/03/17 10:10 Dose: 800 mg Tamsulosin HCl (Flomax) 0.4 mg PO DAILY [facility] Last Admin: 09/03/17 10:09 Dose: 0.4 mg Vitamin B Complex/Vit C/Folic Acid (Nephro-Devi) 1 tab PO 0800 [facility] Last Admin: 09/03/17 08:37 Dose: 1 tab Zolpidem Tartrate (Ambien) 5 mg PO HS PRN; Protocol PRN Reason: Insomnia Last Admin: 09/01/17 21:46 Dose: 5 mg - Labs Labs: 09/03/17 07:01 09/03/17 07:01 PT 11.4 SECONDS (9.4-12.5) 08/30/17 12:53 INR 0.99 (0.93-1.08) 08/30/17 12:53 APTT 26.0 Seconds (25.1-36.5) 08/30/17 12:53 - Additional Findings Additional findings: - Constitutional Appears: Well, Non-toxic, No Acute Distress, Chronically Ill - Head Exam Head Exam: ATRAUMATIC, NORMAL INSPECTION, NORMOCEPHALIC - Eye Exam Eye Exam: EOMI, Normal appearance Pupil Exam: PERRL - ENT Exam ENT Exam: Mucous Membranes Moist - Neck Exam Neck exam: Positive for: Full Rom - Respiratory Exam Respiratory Exam: Clear to Auscultation Bilateral, NORMAL BREATHING PATTERN. absent: Rales, Rhonchi, Wheezes - Cardiovascular Exam Cardiovascular Exam: REGULAR RHYTHM, +S1, +S2 - GI/Abdominal Exam GI & Abdominal Exam: Normal Bowel Sounds, Soft. absent: Guarding, Rebound, Rigid, Tenderness - Rectal Exam Rectal Exam: Deferred - Extremities Exam Extremities exam: Positive for: pedal edema (+2 pitting edema bilaterally), pedal pulses present Additional comments: Bilateral foot drop Decreased sensation in both feet - Back Exam Back exam: NORMAL INSPECTION - Neurological Exam Neurological exam: Alert, Oriented x3 - Expanded Neurological Exam Expanded Sensory exam: Upper Extremity Light Touch: Abnormal Left, Abnormal Right Neuro motor strength exam: Left Upper Extremity: 5, Right Upper Extremity: 5, Left Lower Extremity: 0, Right Lower Extremity: 0 - Psychiatric Exam Psychiatric exam: Normal Affect, Normal Mood - Skin Skin Exam: Dry, Normal Color, Warm Assessment and Plan - Assessment and Plan (Free Text) Assessment: A/P: Patient is a 36 year old male with past medical history of mulitple CVA's, DM, CKD, presents to the ED for right eye vision loss, found to have elevated Cr , anemia: US of LE negative Right eye visual changes -Stable, afebrile -Patient had a history of multiple CVAs in the past -CT head: negative for ischemia/hemorrhage -Carotid US showed bilateral 0-19 percent proximal ICA stenosis, antegrade flow in both vertebral arteries -MRI brain could not be done due to presence of bladder pacemaker -Echo with bubble study mild concentric LV hypertrophy, normal EF, trace to mild MR -Continue Aspirin, Plavix, Lipitor -Neurology on consult, help appreciated -Pt's Ophthalmology Dr Matthews consulted, recommended primarily outpatient follow up -Physical Therapy recommends subacute rehab Factor V Leiden Mutation -Heterozygous mutation -Heme/Onc recommending therapeutic anticoagulation -Stool for occult blood pending Leukocytosis -Patient with white count of 17.2 today, low grade fever 100.1 -Per nursing patient has a bed sore on his lower thoracic region; patient refuses to be repositioned and refuses care -Continue Rocephin 1 gm daily -Wound culture ordered -ID on consult, help appreciated Normocytic Anemia -Multifactorial anemia of chronic disease (ACD) and iron deficiency anemia -Hgb 7.9 today, asymptomatic -Continue aranesp, IV iron daily -F/U stool occult -Heme/onc on consult, help appreciated Elevated Cr: 2/2 CLIFTON on CKD vs worsening CKD -Baseline Cr 2-3 -BUN/CR on admission 68/5.3 today -Continue Sevelamer 800mg PO TID -No indication for hemodialysis at this time -Nephro on consult, help appreciated History of Hypertension -Continue home medications -Added clonidine patch -Lasix 40mg PO BID, Hydralazine 75 mg Q8H, Labetalol 400 mg TID History of [place] -Continue Aspirin 81mg -Plavix 75 mg PO daily -EKG showed NSR -LDL 84. lipitor 20 mg daily Diabetes Mellitus Type 1/Peripheral Neuropathy: - HgA1c 7.3 - Levemir 15 units Q12H - ISS lispro medium CHF (diastolic dysfunction)/Bilateral Lower Extremity Swelling: -Lower extremity doppler negative for DVT -Last echo 07/2016: borderline concentric left ventricular hypertrophy, normal LVEF, grade I abnormal relaxation pattern History of Neurogenic Bladder with Chronic Lira and UTI -S/P bladder pacemaker -Continue Flomax 0.4mg PO daily -UA posititve for nitrates and small leuk esterase, urine culture pending -Antibiotics: Ceftraixone 1 gm IVP daily History of Hypothyroidism -Continue home synthroid 175 mcg -TSH 6.86, Free T4 1.06. -Repeat TSH outpatient in 4-6 weeks. Chronic Constipation -Colace 100mg PO BID, Miralax 17gm PO daily prn constipation -Lactulose 30 grams PO daily -Tap water enema ordered -Monitor for return of bowel function GI/DVT -Protonix 40mg IV daily -SCDs DISPO: Patient's PMD is Dr Wakefield, he will follow up with her upon discharge. PT recommending [facility] for discharge. ID consulted for Leukocytosis and low grade fever while on IV antibiotics. Plan discussed with Dr Yuliya Headley DO PGY-1 <Ector Dwyer - Last Filed: 09/05/17 13:43> Objective - Vital Signs/Intake and Output Vital Signs (last 24 hours): Temp Pulse Resp BP Pulse Ox 98.2 F 70 18 142/74 94 L 09/05/17 13:03 09/05/17 13:03 09/05/17 13:03 09/05/17 13:03 09/04/17 18:00 Intake and Output: 09/05/17 09/05/17 06:59 18:59 Intake Total 1440 0 Output Total 525 Balance 915 0 - Medications Medications: Current Medications Amlodipine Besylate (Norvasc) 5 mg PO DAILY [facility] Last Admin: 09/05/17 10:39 Dose: 5 mg Aspirin (Ecotrin) 81 mg PO DAILY [facility] Last Admin: 09/05/17 10:39 Dose: 81 mg Atorvastatin Calcium (Lipitor) 20 mg PO DIN [facility] Last Admin: 09/04/17 17:23 Dose: 20 mg Calcium Acetate (Phoslo) 1,334 mg PO WM [facility] Last Admin: 09/05/17 08:39 Dose: Not Given Clonidine HCl (Catapres-Tts3 0.3 Mg/24 Hr) 1 patch TD Q7D@1000 [facility] Docusate Sodium (Colace) 100 mg PO BID [facility] Last Admin: 09/05/17 10:40 Dose: 100 mg Ergocalciferol (Drisdol 50,000 Intl Units Cap) 1 cap PO Q7D [facility] Last Admin: 09/03/17 11:54 Dose: 1 cap Furosemide (Lasix) 40 mg PO DAILY [facility] Last Admin: 09/05/17 10:40 Dose: 40 mg Hydralazine HCl (Apresoline) 75 mg PO Q8 [facility] Last Admin: 09/05/17 05:34 Dose: 75 mg Iron Sucrose 200 mg/ Sodium (Chloride) 110 mls @ 110 mls/hr IVPB DAILY [facility] Stop: 09/07/17 10:01 Last Admin: 09/05/17 11:00 Dose: 110 mls/hr Cefepime HCl (Maxipime 1gm) 1 gm in 100 mls @ 100 mls/hr IVPB HS [facility] PRN Reason: Protocol Last Admin: 09/04/17 22:16 Dose: 100 mls/hr Heparin Sodium/Sodium Chloride (Heparin 12499 Units/250ml 1/2 Normal Saline) 25 ,000 units in 250 mls @ 20.003 mls/hr IV .[id number] PRN; Protocol; 18 UNITS/KG/HR PRN Reason: ADJUST RATE PER PROTOCOL Last Admin: 09/05/17 12:05 Dose: 18 units/kg/hr, 20.003 mls/hr Insulin Detemir (Levemir) 25 unit SC Q12 [facility] Last Admin: 09/05/17 10:40 Dose: 25 units Insulin Human Lispro (Humalog High) 0 units SC ACHS [facility] PRN Reason: Protocol Last Admin: 09/05/17 08:28 Dose: Not Given Isosorbide Dinitrate (Isordil) 20 mg PO BID [facility] Last Admin: 09/05/17 10:40 Dose: 20 mg Labetalol HCl (Trandate) 400 mg PO TID [facility] Last Admin: 09/05/17 11:08 Dose: 400 mg Lactulose (Enulose) 30 gm PO DAILY [facility] Last Admin: 09/05/17 10:41 Dose: 30 gm Levothyroxine Sodium (Synthroid) 175 mcg PO 0600 [facility] Last Admin: 09/05/17 05:34 Dose: 175 mcg Ondansetron HCl (Zofran Inj) 4 mg IVP Q4H PRN PRN Reason: Nausea/Vomiting Last Admin: 09/04/17 18:54 Dose: 4 mg Polyethylene Glycol (Miralax) 17 gm PO BID [facility] Last Admin: 09/05/17 10:42 Dose: 17 gm Povidone Iodine (Betadine 10% Topical Soln) 0 ml TOP DAILY [facility] Last Admin: 09/04/17 17:29 Dose: 1 applic Tamsulosin HCl (Flomax) 0.4 mg PO DAILY [facility] Last Admin: 09/05/17 10:39 Dose: 0.4 mg Vitamin B Complex/Vit C/Folic Acid (Nephro-Devi) 1 tab PO 0800 [facility] Last Admin: 09/05/17 08:46 Dose: Not Given Zolpidem Tartrate (Ambien) 5 mg PO HS PRN; Protocol PRN Reason: Insomnia Last Admin: 09/03/17 23:26 Dose: 5 mg - Labs Labs: 06/27/18 06:00 09/05/17 06:00 PT 11.4 SECONDS (9.4-12.5) 08/30/17 12:53 INR 0.99 (0.93-1.08) 08/30/17 12:53 APTT 26.0 Seconds (25.1-36.5) 08/30/17 12:53 Attending/Attestation - Attestation I have personally seen and examined this patient.: Yes I have fully participated in the care of the patient.: Yes I have reviewed all pertinent clinical information, including history, physical exam and plan: Yes Notes (Text): 09/05/17 13:37 Attending note; Patient seen and examined with resident. Patient is a 36 year old male with past medical history of multiple CVAs, diabetes, hypertension and CKD who presented with complaint of worsening vision for the past few days. 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 MRI brain was not able to be obtained secondary to presence of bladder pacemaker. CT head and carotid dopplers were negative for acute findings. Neurology evaluation appreciated. Chronic kidney disease ; patient has uncontrolled diabetes and hypertension. Nephrology evaluation appreciated. Anemia; possibly secondary to anemia of chronic disease. patient also has worsening renal function. Hematology evaluation appreciated. We will discuss about the need for anticoagulation. Patient is already on aspirin and Plavix. Stool occult blood is pending. Patient had constipation over one week. Continue MiraLAX. Lactulose and enema ordered. Diabetes; increase insulin as needed. Hypertension; continue clonidine patch, hydralazine. Patient had low-grade temperature and elevated white count new. Patient has a wound in the left back. Culture done. Started on IV Rocephin. ID evaluation requested. Medications to be dose adjusted for renal failure. Physical therapy evaluation requested. Patient has multiple medical issues. Needs close outpatient follow-up. Upon discharge the patient will follow-up with .
--- NOTE | 2017-09-03 12:37 | CARD ---
APPROVED REPORT EXAM: Two-dimensional and M-mode echocardiogram with Doppler and color Doppler. INDICATION CVA/TIA 2D DIMENSIONS Left Atrium (2D)3.9 (1.6-4.0cm)IVSd1.4 (0.7-1.1cm) LVDd5.0 (3.9-5.9cm)PWd1.5 (0.7-1.1cm) LVDs3.3 (2.5-4.0cm)FS (%) 34.5 % LVEF (%)63.4 (>50%) M-Mode DIMENSIONS Aortic Root2.40 (2.2-3.7cm)Aortic Cusp Exc.1.50 (1.5-2.0cm) Aortic Valve AoV Peak Hxqygqwb951.0cm/Alcides Peak GR.11mmHg Mitral Valve MV E Wzaovwed188.0cm/sMV A Utjolnff675.0cm/sE/A ratio1.1 TDI E/Lateral E'0.0E/Medial E'0.0 Tricuspid Valve TR Peak [id number]/sRAP [id number] Peak Gr.13mmHg [id number] LEFT VENTRICLE The left ventricle is normal size. There is mild concentric left ventricular hypertrophy. The left ventricular function is normal. The left ventricular ejection fraction is within the normal range. There is normal LV segmental wall motion. The left ventricular diastolic function is normal. RIGHT VENTRICLE The right ventricle is normal size. There is normal right ventricular wall thickness. The right ventricular systolic function is normal. ATRIA The left atrium size is normal. The right atrium size is normal. AORTIC VALVE The aortic valve is not well visualized. There is trace to mild aortic regurgitation. There is no aortic valvular stenosis. MITRAL VALVE The mitral valve is not well visualized. There is no mitral valve regurgitation noted. TRICUSPID VALVE The tricuspid valve is normal in structure. There is no tricuspid valve regurgitation noted. GREAT VESSELS The aortic root is normal in size. PERICARDIAL EFFUSION There is no pericardial effusion. <Conclusion> The left ventricle is normal size. There is mild concentric left ventricular hypertrophy. The left ventricular function is normal. The left ventricular ejection fraction is within the normal range. There is normal LV segmental wall motion. The left ventricular diastolic function is normal. There is trace to mild aortic regurgitation. Poorly visualized bubble study due to poor Echo window
--- NOTE | 2017-09-03 12:39 | CP.PCM.PN ---
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 pt aware that will need in near future. Hypertension control with meds as ordered. Patient not on ACEI/ARB likely due to advanced renal insuff. change to lasix 40 oral bid Monitor I/O, daily weights and renal function while in hospital continue with iron supplements. MVI and dose of aransep 60 mcg on 08/31/17 dose of neurontin to be reduced max 300 mg/day for his reduced renal function consider to add statins continue with phos binders started weekly Vit D infectious work up as primary team heme input noted Dose meds/antibiotics for reduced GFR. Avoid fleets enema/magnesium based laxatives. Avoid nephrotoxins/NSAIDs/ iodinated contrast (unless needed emergently) Glycemic control, renal diet Further work up for as per primary team. Thanks for allowing me to participate in care of your patient. Will follow with you. Please call if any Qs. had d/w team Dr Artis Mendoza Office: [phone] Chief Complaint; vision impairment reason for consult: CLIFTON on CKD HPI: Pt is a 36 y/o M with hx of type I diabetes Mellitus ( x 25 years) with associated retinopathy, neuropathy and likely diabetic nephropathy, HTN, CKD stage 4 with nephrotic syndrome (baseline cr in 3 range since feb 2017), hx of recurrent CLIFTON, chronic urine incontinence and chronic indwelling lópez hx of CVA , non ambulatory presented with complaints of visual impairment. renal consult for CKD management. pt hasn't followed in renal office. Denies chest pain, palpitation, shortness of breath, reports leg swelling Denies OTC/herbal meds/NSAIDs No recent iodinated contrast exposure. BP mostly high ROS: denies CP/SOB/nausea/vomitting/pain abdomen. has chronic back pain. rest other negative except as mentioned in HPI Physical Examination: General Appearance: Comfortable, in no acute respiratory distress, co- operative. obese Vitals reviewed and noted as below Head; Atraumatic, normocephalic ENT: no ulcers no thrush. Tongue is midline. Oropharynx: no rash or ulcers. EYES: Pupils are equal, round and reactive to light accommodation. Eye muscles and extraocular movement intact. Sclera is anicteric. has vision impaired Neck; supple no lymphadenopathy, no thyromegaly or bruit Lungs: Normal respiratory rate/effort. Breath sounds clear and bilateral equal Heart: Normal rate. s1s2 normal. No rub or gallop. Extremities: 1+ edema. No varicose veins Neurological: Patient is alert, awake and oriented x 3 chronic leg paresis Skin: dry and warm. Normal turgor. No rash. Palpitation: Normal elasticity for age Abdomen: Abdomen is soft. Bowel sounds +. There is no abdominal tenderness, no guarding/rigidity or organomegaly Psych: normal insight. normal affect MSK: no specific joint tenderness or swelling. Digits and nails normal, no deformity : kidney or bladder not palpable. has lópez catheter Labs/imaging/EKG reviewed. Past medical history, past surgical history, social history, allergy reviewed and noted as below Family hx; no hx of CKD. non contributory Work up UA: 3+ protein TSAT/ferritin 23%/28 Serology in past as DINA/ANCA negative. normal complements, HIV/Hep B and C were neg aldosterone 1, metanephrines were negative. renal artery doppler: no MAIKEL Rt kidney atrophy 8 cm, left kidney [address] abdomen: unremarkable kidneys and adrenals Objective - Vital Signs/Intake and Output Vital Signs (last 24 hours): Temp Pulse Resp BP Pulse Ox 100.1 F H 63 20 122/63 95 09/03/17 07:58 09/03/17 10:07 09/03/17 07:58 09/03/17 10:08 09/03/17 07:58 Intake and Output: 09/03/17 09/03/17 06:59 18:59 Intake Total 780 Output Total 1800 Balance -1020 - Medications Medications: Current Medications Aspirin (Ecotrin) 81 mg PO DAILY [facility] Last Admin: 09/03/17 10:10 Dose: 81 mg Atorvastatin Calcium (Lipitor) 20 mg PO DIN [facility] Last Admin: 09/02/17 17:32 Dose: 20 mg Clonidine HCl (Catapres-Tts3 0.3 Mg/24 Hr) 1 patch TD Q7D@1000 [facility] Clopidogrel Bisulfate (Plavix) 75 mg PO DAILY [facility] Last Admin: 09/03/17 10:07 Dose: 75 mg Docusate Sodium (Colace) 100 mg PO BID [facility] Last Admin: 09/03/17 10:09 Dose: 100 mg Ergocalciferol (Drisdol 50,000 Intl Units Cap) 1 cap PO Q7D [facility] Last Admin: 09/03/17 11:54 Dose: 1 cap Furosemide (Lasix) 40 mg PO BID [facility] Last Admin: 09/03/17 10:08 Dose: 40 mg Hydralazine HCl (Apresoline) 75 mg PO Q8 [facility] Last Admin: 09/03/17 05:41 Dose: 75 mg Iron Sucrose 200 mg/ Sodium (Chloride) 110 mls @ 110 mls/hr IVPB DAILY [facility] Stop: 09/07/17 10:01 Last Admin: 09/03/17 12:05 Dose: 110 mls/hr Ceftriaxone Sodium (Rocephin 1 Gram Ivpb) 1 gm in 100 mls @ 100 mls/hr IVPB DAILY [facility] PRN Reason: Protocol Last Admin: 09/03/17 10:07 Dose: 100 mls/hr Insulin Detemir (Levemir) 12 unit SC Q12H [facility] Last Admin: 09/03/17 11:55 Dose: Not Given Insulin Human Lispro (Humalog Med) 0 units SC ACHS [facility] PRN Reason: Protocol Last Admin: 09/03/17 12:01 Dose: 3 units Isosorbide Dinitrate (Isordil) 20 mg PO BID [facility] Last Admin: 09/03/17 10:09 Dose: 20 mg Labetalol HCl (Trandate) 400 mg PO TID [facility] Last Admin: 09/03/17 10:07 Dose: 400 mg Lactulose (Enulose) 30 gm PO DAILY [facility] Last Admin: 09/03/17 10:06 Dose: 30 gm Levothyroxine Sodium (Synthroid) 175 mcg PO 0600 [facility] Last Admin: 09/03/17 05:44 Dose: 175 mcg Ondansetron HCl (Zofran Inj) 4 mg IVP Q4H PRN PRN Reason: Nausea/Vomiting Last Admin: 09/03/17 12:01 Dose: 4 mg Oxycodone/Acetaminophen (Percocet 10/325 Mg Tab) 1 tab PO Q6H PRN PRN Reason: Pain, moderate (4-7) Last Admin: 08/31/17 22:27 Dose: 1 tab Polyethylene Glycol (Miralax) 17 gm PO BID [facility] Last Admin: 09/03/17 10:10 Dose: 17 gm Sevelamer HCl (Renagel) 800 mg PO TID [facility] Tamsulosin HCl (Flomax) 0.4 mg PO DAILY [facility] Last Admin: 09/03/17 10:09 Dose: 0.4 mg Vitamin B Complex/Vit C/Folic Acid (Nephro-Devi) 1 tab PO 0800 [facility] Last Admin: 09/03/17 08:37 Dose: 1 tab Zolpidem Tartrate (Ambien) 5 mg PO HS PRN; Protocol PRN Reason: Insomnia Last Admin: 09/01/17 21:46 Dose: 5 mg - Labs Labs: 09/03/17 07:01 09/03/17 07:01 PT 11.4 SECONDS (9.4-12.5) 08/30/17 12:53 INR 0.99 (0.93-1.08) 08/30/17 12:53 APTT 26.0 Seconds (25.1-36.5) 08/30/17 12:53
--- NOTE | 2017-09-03 12:54 | CP.PCM.PN ---
Subjective - Date & Time of Evaluation Date of Evaluation: 09/03/17 Time of Evaluation: 12:53 - Subjective Subjective: Mr. Mccartney was seen and examined at the bedside. He is alert, oriented in all spheres. He claims of improved vision since admission. He denies any headache, dizziness, weakness. He is able to follow simple commands. There was no untoward events overnight. Objective - Vital Signs/Intake and Output Vital Signs (last 24 hours): Temp Pulse Resp BP Pulse Ox 100.1 F H 63 20 122/63 95 09/03/17 07:58 09/03/17 10:07 09/03/17 07:58 09/03/17 10:08 09/03/17 07:58 Intake and Output: 09/03/17 09/03/17 06:59 18:59 Intake Total 780 Output Total 1800 Balance -1020 - Medications Medications: Current Medications Aspirin (Ecotrin) 81 mg PO DAILY [facility] Last Admin: 09/03/17 10:10 Dose: 81 mg Atorvastatin Calcium (Lipitor) 20 mg PO DIN [facility] Last Admin: 09/02/17 17:32 Dose: 20 mg Clonidine HCl (Catapres-Tts3 0.3 Mg/24 Hr) 1 patch TD Q7D@1000 [facility] Clopidogrel Bisulfate (Plavix) 75 mg PO DAILY [facility] Last Admin: 09/03/17 10:07 Dose: 75 mg Docusate Sodium (Colace) 100 mg PO BID [facility] Last Admin: 09/03/17 10:09 Dose: 100 mg Ergocalciferol (Drisdol 50,000 Intl Units Cap) 1 cap PO Q7D [facility] Last Admin: 09/03/17 11:54 Dose: 1 cap Furosemide (Lasix) 40 mg PO BID [facility] Last Admin: 09/03/17 10:08 Dose: 40 mg Hydralazine HCl (Apresoline) 75 mg PO Q8 [facility] Last Admin: 09/03/17 05:41 Dose: 75 mg Iron Sucrose 200 mg/ Sodium (Chloride) 110 mls @ 110 mls/hr IVPB DAILY [facility] Stop: 09/07/17 10:01 Last Admin: 09/03/17 12:05 Dose: 110 mls/hr Ceftriaxone Sodium (Rocephin 1 Gram Ivpb) 1 gm in 100 mls @ 100 mls/hr IVPB DAILY [facility] PRN Reason: Protocol Last Admin: 09/03/17 10:07 Dose: 100 mls/hr Insulin Detemir (Levemir) 12 unit SC Q12H [facility] Last Admin: 09/03/17 11:55 Dose: Not Given Insulin Human Lispro (Humalog Med) 0 units SC ACHS [facility] PRN Reason: Protocol Last Admin: 09/03/17 12:01 Dose: 3 units Isosorbide Dinitrate (Isordil) 20 mg PO BID [facility] Last Admin: 09/03/17 10:09 Dose: 20 mg Labetalol HCl (Trandate) 400 mg PO TID [facility] Last Admin: 09/03/17 10:07 Dose: 400 mg Lactulose (Enulose) 30 gm PO DAILY [facility] Last Admin: 09/03/17 10:06 Dose: 30 gm Levothyroxine Sodium (Synthroid) 175 mcg PO 0600 [facility] Last Admin: 09/03/17 05:44 Dose: 175 mcg Ondansetron HCl (Zofran Inj) 4 mg IVP Q4H PRN PRN Reason: Nausea/Vomiting Last Admin: 09/03/17 12:01 Dose: 4 mg Oxycodone/Acetaminophen (Percocet 10/325 Mg Tab) 1 tab PO Q6H PRN PRN Reason: Pain, moderate (4-7) Last Admin: 08/31/17 22:27 Dose: 1 tab Polyethylene Glycol (Miralax) 17 gm PO BID [facility] Last Admin: 09/03/17 10:10 Dose: 17 gm Sevelamer HCl (Renagel) 800 mg PO TID [facility] Tamsulosin HCl (Flomax) 0.4 mg PO DAILY [facility] Last Admin: 09/03/17 10:09 Dose: 0.4 mg Vitamin B Complex/Vit C/Folic Acid (Nephro-Devi) 1 tab PO 0800 [facility] Last Admin: 09/03/17 08:37 Dose: 1 tab Zolpidem Tartrate (Ambien) 5 mg PO HS PRN; Protocol PRN Reason: Insomnia Last Admin: 09/01/17 21:46 Dose: 5 mg - Labs Labs: 09/03/17 07:01 09/03/17 07:01 PT 11.4 SECONDS (9.4-12.5) 08/30/17 12:53 INR 0.99 (0.93-1.08) 08/30/17 12:53 APTT 26.0 Seconds (25.1-36.5) 08/30/17 12:53 - Constitutional Appears: No Acute Distress - Head Exam Head Exam: NORMAL INSPECTION - Neurological Exam Neurological Exam: Alert, Awake, Oriented x3 Neuro motor strength exam: Left Upper Extremity: 5, Right Upper Extremity: 5, Left Lower Extremity: 0, Right Lower Extremity: 0 Additional comments: alert, oriented, follows commands, sensation is intact. Assessment and Plan (1) Visual loss Assessment & Plan: Case discussed with Dr. Curran, continue all current medical regimen. Recommend glycemic control, hydration, follow any orders from Dr. Beckman, keep head of bed elevated at least 30 degrees. Status: Acute
[2017-09-03] MEDS ORDERED: Insulin Detemir 100 units/ml Vial (Levemir) SC SCH ×2 (13:52→22:00)
[2017-09-03 16:08] LABS: URINE BILIRUBIN NEGATIVE (NEGATIVE); URINE BLOOD NEGATIVE (NEGATIVE); URINE GLUCOSE (UA) 250 mg/dL (NEGATIVE); URINE LEUKOCYTE ESTERASE SMALL Leu/uL (NEGATIVE); URINE PROTEIN >=300 mg/dL (<30 mg/dL); URINE UROBILINOGEN 0.2 E.U./dL (<1 E.U./dL)
[2017-09-03 16:09] LABS: URINE APPEARANCE CLOUDY (CLEAR); URINE COLOR YELLOW (YELLOW)
[2017-09-03 16:19] LABS: URINE BACTERIA MANY (NEG); URINE WBC TNTC /hpf (0-6)
[2017-09-03 16:21] LABS: URINE EPITHELIAL CELLS 0 - 2 /hpf (0-5)
--- NOTE | 2017-09-03 19:44 | CP.PCM.CON ---
History of Present Illness - History of Present Illness History of Present Illness: Infectious Disease Consultation: September 03, 2017 36 yo male with initial presentation of visual impairment where his right eye had a blacking out and blurry vision in the left eye. The patient was found to have upper back ulceration and new onset leukocytosis. Mild nausea. Vision improving slowly. PMHx: DM type 1 with neuropathy, Multiple CVA's, CKD, HTN, DKA, Anxiety PSHx: Left eye surgery, Pacemaker Allergies: Sulfamethoxazole, Trimethoprim Social Hx: No tobacco, EtOH, or illicit drug use Active Medications Aspirin (Ecotrin) 81 mg PO DAILY [facility] Last Admin: 09/03/17 10:10 Dose: 81 mg Atorvastatin Calcium (Lipitor) 20 mg PO DIN [facility] Last Admin: 09/03/17 17:21 Dose: 20 mg Clonidine HCl (Catapres-Tts3 0.3 Mg/24 Hr) 1 patch TD Q7D@1000 [facility] Clopidogrel Bisulfate (Plavix) 75 mg PO DAILY [facility] Last Admin: 09/03/17 10:07 Dose: 75 mg Docusate Sodium (Colace) 100 mg PO BID [facility] Last Admin: 09/03/17 17:21 Dose: 100 mg Ergocalciferol (Drisdol 50,000 Intl Units Cap) 1 cap PO Q7D [facility] Last Admin: 09/03/17 11:54 Dose: 1 cap Furosemide (Lasix) 40 mg PO BID [facility] Last Admin: 09/03/17 17:21 Dose: 40 mg Hydralazine HCl (Apresoline) 75 mg PO Q8 [facility] Last Admin: 09/03/17 15:04 Dose: 75 mg Iron Sucrose 200 mg/ Sodium (Chloride) 110 mls @ 110 mls/hr IVPB DAILY [facility] Stop: 09/07/17 10:01 Last Admin: 09/03/17 12:05 Dose: 110 mls/hr Ceftriaxone Sodium (Rocephin 1 Gram Ivpb) 1 gm in 100 mls @ 100 mls/hr IVPB DAILY [facility] PRN Reason: Protocol Last Admin: 09/03/17 10:07 Dose: 100 mls/hr Insulin Detemir (Levemir) 15 unit SC Q12 [facility] Insulin Human Lispro (Humalog Med) 0 units SC ACHS [facility] PRN Reason: Protocol Last Admin: 09/03/17 17:20 Dose: 2 units Isosorbide Dinitrate (Isordil) 20 mg PO BID [facility] Last Admin: 09/03/17 17:21 Dose: 20 mg Labetalol HCl (Trandate) 400 mg PO TID [facility] Last Admin: 09/03/17 17:22 Dose: 400 mg Lactulose (Enulose) 30 gm PO DAILY [facility] Last Admin: 09/03/17 10:06 Dose: 30 gm Levothyroxine Sodium (Synthroid) 175 mcg PO 0600 [facility] Last Admin: 09/03/17 05:44 Dose: 175 mcg Ondansetron HCl (Zofran Inj) 4 mg IVP Q4H PRN PRN Reason: Nausea/Vomiting Last Admin: 09/03/17 18:13 Dose: 4 mg Oxycodone/Acetaminophen (Percocet 10/325 Mg Tab) 1 tab PO Q6H PRN PRN Reason: Pain, moderate (4-7) Last Admin: 08/31/17 22:27 Dose: 1 tab Polyethylene Glycol (Miralax) 17 gm PO BID [facility] Last Admin: 09/03/17 17:21 Dose: 17 gm Sevelamer HCl (Renagel) 800 mg PO TID [facility] Last Admin: 09/03/17 17:21 Dose: 800 mg Tamsulosin HCl (Flomax) 0.4 mg PO DAILY [facility] Last Admin: 09/03/17 10:09 Dose: 0.4 mg Vitamin B Complex/Vit C/Folic Acid (Nephro-Devi) 1 tab PO 0800 [facility] Last Admin: 09/03/17 08:37 Dose: 1 tab Zolpidem Tartrate (Ambien) 5 mg PO HS PRN; Protocol PRN Reason: Insomnia Last Admin: 09/01/17 21:46 Dose: 5 mg Family Hx: Diabetes Mellitus, COPD, Anxiety ROS: No fevers, chills, nausea, vomiting, dirrhea, headaches, dizziness, chest pain, abdominal pain, melena, hematuria, hematemesis, hematochezia, depression. Positive anxiety and vision changes. Past Patient History - Infectious Disease Hx of Infectious Diseases: None - Tetanus Immunizations Tetanus Immunization: Unknown - Past Medical History & Family History Past Medical History?: Yes - Past Social History Smoking Status: Never Smoked - CARDIAC Hx Cardiac Disorders: Yes Hx Congestive Heart Failure: No Hx Hypercholesterolemia: Yes Hx Hypertension: Yes - PULMONARY Hx Chronic Obstructive Pulmonary Disease (COPD): No - NEUROLOGICAL HX Cerebrovascular Accident: Yes (12/2013 Bilateral Lower extremities flaccid) - HEENT Hx HEENT Problems: Yes (wears glasses, recent vision loss due to cva) Hx Blind: No Hx Cataracts: Yes Hx Deafness: No Hx Difficulty Chewing: No Hx Epistaxis: No Hx Glaucoma: No Hx Macular Degeneration: Yes - RENAL Hx Chronic Kidney Disease: Yes ("interstem, 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") Hx Pyelonephritis: Yes - ENDOCRINE/METABOLIC Hx Diabetes Mellitus Type 1: Yes (dx at age 10.) Hx Diabetes Mellitus Type 2: No Hx Hypothyroidism: Yes (synthroid) - HEMATOLOGICAL/ONCOLOGICAL Hx Blood Disorders: No Hx AIDS: No Hx Anemia: No Hx Cancer: No Hx Chemotherapy: No Hx Cirrhosis: No Hx Hemophilia: No Hx Hepatitis A: No Hx Hepatitis B: No Hx Hepatitis C: No Hx Human Immunodeficiency Virus (HIV): No Hx Metastesis: No Hx Shingles: No Hx Unexplained Bleeding: No - INTEGUMENTARY Hx Dermatological Problems: No Hx Basil Cell: No Hx Eczema: No Hx Melanoma: No Hx Psoriasis: No Hx Squamous Cell: No - MUSCULOSKELETAL/RHEUMATOLOGICAL Hx Falls: Yes - GASTROINTESTINAL Hx Gastrointestinal Disorders: Yes (colitis) - GENITOURINARY/GYNECOLOGICAL Hx Genitourinary Disorders: Yes (chronic lópez) Hx Incontinence: Yes Hx Urinary Tract Infection: Yes - PSYCHIATRIC Hx Psychophysiologic Disorder: Yes Hx Anxiety: Yes - SURGICAL HISTORY Hx Surgeries: Yes Hx Cardiac Catheterization: No Hx Coronary Stent: No Other/Comment: bladder surgery - ANESTHESIA Hx Anesthesia: Yes Hx Anesthesia Reactions: No Hx Malignant Hyperthermia: No Meds Allergies/Adverse Reactions: Allergies Allergy/AdvReac Type Severity Reaction Status Date / Time sulfamethoxazole Allergy ANAPHYLAXIS Verified 01/16/17 13:45 [From Bactrim] trimethoprim [From Bactrim] Allergy ANAPHYLAXIS Verified 01/16/17 13:45 - Medications Medications: Current Medications Aspirin (Ecotrin) 81 mg PO DAILY [facility] Last Admin: 09/03/17 10:10 Dose: 81 mg Atorvastatin Calcium (Lipitor) 20 mg PO DIN [facility] Last Admin: 09/03/17 17:21 Dose: 20 mg Clonidine HCl (Catapres-Tts3 0.3 Mg/24 Hr) 1 patch TD Q7D@1000 [facility] Clopidogrel Bisulfate (Plavix) 75 mg PO DAILY [facility] Last Admin: 09/03/17 10:07 Dose: 75 mg Docusate Sodium (Colace) 100 mg PO BID [facility] Last Admin: 09/03/17 17:21 Dose: 100 mg Ergocalciferol (Drisdol 50,000 Intl Units Cap) 1 cap PO Q7D [facility] Last Admin: 09/03/17 11:54 Dose: 1 cap Furosemide (Lasix) 40 mg PO BID [facility] Last Admin: 09/03/17 17:21 Dose: 40 mg Hydralazine HCl (Apresoline) 75 mg PO Q8 [facility] Last Admin: 09/03/17 15:04 Dose: 75 mg Iron Sucrose 200 mg/ Sodium (Chloride) 110 mls @ 110 mls/hr IVPB DAILY [facility] Stop: 09/07/17 10:01 Last Admin: 09/03/17 12:05 Dose: 110 mls/hr Ceftriaxone Sodium (Rocephin 1 Gram Ivpb) 1 gm in 100 mls @ 100 mls/hr IVPB DAILY [facility] PRN Reason: Protocol Last Admin: 09/03/17 10:07 Dose: 100 mls/hr Insulin Detemir (Levemir) 15 unit SC Q12 [facility] Insulin Human Lispro (Humalog Med) 0 units SC ACHS [facility] PRN Reason: Protocol Last Admin: 09/03/17 17:20 Dose: 2 units Isosorbide Dinitrate (Isordil) 20 mg PO BID [facility] Last Admin: 09/03/17 17:21 Dose: 20 mg Labetalol HCl (Trandate) 400 mg PO TID [facility] Last Admin: 09/03/17 17:22 Dose: 400 mg Lactulose (Enulose) 30 gm PO DAILY [facility] Last Admin: 09/03/17 10:06 Dose: 30 gm Levothyroxine Sodium (Synthroid) 175 mcg PO 0600 [facility] Last Admin: 09/03/17 05:44 Dose: 175 mcg Ondansetron HCl (Zofran Inj) 4 mg IVP Q4H PRN PRN Reason: Nausea/Vomiting Last Admin: 09/03/17 18:13 Dose: 4 mg Oxycodone/Acetaminophen (Percocet 10/325 Mg Tab) 1 tab PO Q6H PRN PRN Reason: Pain, moderate (4-7) Last Admin: 08/31/17 22:27 Dose: 1 tab Polyethylene Glycol (Miralax) 17 gm PO BID [facility] Last Admin: 09/03/17 17:21 Dose: 17 gm Sevelamer HCl (Renagel) 800 mg PO TID [facility] Last Admin: 09/03/17 17:21 Dose: 800 mg Tamsulosin HCl (Flomax) 0.4 mg PO DAILY [facility] Last Admin: 09/03/17 10:09 Dose: 0.4 mg Vitamin B Complex/Vit C/Folic Acid (Nephro-Devi) 1 tab PO 0800 [facility] Last Admin: 09/03/17 08:37 Dose: 1 tab Zolpidem Tartrate (Ambien) 5 mg PO HS PRN; Protocol PRN Reason: Insomnia Last Admin: 09/01/17 21:46 Dose: 5 mg Physical Exam - Constitutional Appears: Non-toxic, No Acute Distress, Chronically Ill - Head Exam Head Exam: ATRAUMATIC, NORMOCEPHALIC - Eye Exam Eye Exam: EOMI, PERRL Pupil Exam: NORMAL ACCOMODATION, PERRL - ENT Exam ENT Exam: Mucous Membranes Moist, Normal External Ear Exam, TM's Normal Bilaterally - Neck Exam Neck exam: Positive for: Full Rom - Respiratory Exam Respiratory Exam: Clear to Auscultation Bilateral, NORMAL BREATHING PATTERN. absent: Rales, Rhonchi, Wheezes - Cardiovascular Exam Cardiovascular Exam: REGULAR RHYTHM, RRR, +S1, +S2 - GI/Abdominal Exam GI & Abdominal Exam: Normal Bowel Sounds, Soft. absent: Distended, Tenderness - Extremities Exam Extremities exam: Positive for: joint swelling, pedal edema (+2 edema) Additional comments: Bilateral foot drop - Neurological Exam Neurological exam: Alert, Oriented x3 Additional comments: decreased strength in lower body. - Psychiatric Exam Psychiatric exam: Normal Affect, Normal Mood - Skin Skin Exam: Dry, Normal Color, Warm Results - Vital Signs Recent Vital Signs: Last Vital Signs Temp 98 F 09/03/17 18:00 Pulse 82 09/03/17 18:00 Resp 20 09/03/17 18:00 BP 159/89 H 09/03/17 18:00 Pulse Ox 99 09/03/17 18:00 - Labs Result Diagrams: 09/03/17 07:01 09/03/17 07:01 Labs: Laboratory Results - last 24 hr 08/31/17 09/02/17 09/03/17 11:45 21:10 01:09 WBC RBC Hgb Hct MCV MCH MCHC RDW Plt Count MPV Gran % Lymph % (Auto) Dale % (Auto) Eos % (Auto) Baso % (Auto) Gran # Lymph # (Auto) Dale # (Auto) Eos # (Auto) Baso # (Auto) Sodium Potassium Chloride Carbon Dioxide Anion Gap BUN Creatinine Est GFR ( Amer) Est GFR (Non-Af Amer) POC Glucose (mg/dL) 216 H 232 H Random Glucose Calcium Total Bilirubin AST ALT Alkaline Phosphatase Total Protein Albumin Globulin Albumin/Globulin Ratio PTH Intact Whole Molec 65 H Urine Color Urine Appearance Urine pH Ur Specific Mcadoo Urine Protein Urine Glucose (UA) Urine Ketones Urine Blood Urine Nitrate Urine Bilirubin Urine Urobilinogen Ur Leukocyte Esterase Urine RBC Urine WBC Ur Epithelial Cells Urine Bacteria Ur Random Creatinine Ur Random Sodium Ur Random Urea Nitrogn Stool Occult Blood 09/03/17 09/03/17 09/03/17 01:20 07:01 07:01 WBC 17.2 H D RBC 2.77 L Hgb 7.9 L Hct 24.5 L MCV 88.4 MCH 28.5 MCHC 32.2 RDW 14.2 Plt Count 346 MPV 10.2 Gran % 80.9 H Lymph % (Auto) 7.9 L Dale % (Auto) 9.9 H Eos % (Auto) 1.0 L Baso % (Auto) 0.3 Gran # 13.90 H Lymph # (Auto) 1.4 Dale # (Auto) 1.7 H Eos # (Auto) 0.2 Baso # (Auto) 0.05 Sodium 139 Potassium 4.6 Chloride 105 Carbon Dioxide 23 Anion Gap 16 BUN 68 H Creatinine 5.3 H Est GFR ( Amer) 15 Est GFR (Non-Af Amer) 12 POC Glucose (mg/dL) Random Glucose 215 H Calcium 7.9 L Total Bilirubin 0.4 AST 13 L D ALT 20 Alkaline Phosphatase 88 Total Protein 5.9 Albumin 3.1 Globulin 2.8 Albumin/Globulin Ratio 1.1 PTH Intact Whole Molec Urine Color Urine Appearance Urine pH Ur Specific Mcadoo Urine Protein Urine Glucose (UA) Urine Ketones Urine Blood Urine Nitrate Urine Bilirubin Urine Urobilinogen Ur Leukocyte Esterase Urine RBC Urine WBC Ur Epithelial Cells Urine Bacteria Ur Random Creatinine 79 Ur Random Sodium 44 Ur Random Urea Nitrogn 405 Stool Occult Blood 09/03/17 09/03/17 09/03/17 07:23 11:46 14:30 WBC RBC Hgb Hct MCV MCH MCHC RDW Plt Count MPV Gran % Lymph % (Auto) Dale % (Auto) Eos % (Auto) Baso % (Auto) Gran # Lymph # (Auto) Dale # (Auto) Eos # (Auto) Baso # (Auto) Sodium Potassium Chloride Carbon Dioxide Anion Gap BUN Creatinine Est GFR ( Amer) Est GFR (Non-Af Amer) POC Glucose (mg/dL) 188 H 201 H Random Glucose Calcium Total Bilirubin AST ALT Alkaline Phosphatase Total Protein Albumin Globulin Albumin/Globulin Ratio PTH Intact Whole Molec Urine Color Urine Appearance Urine pH Ur Specific Mc[place] Urine Protein Urine Glucose (UA) Urine Ketones Urine Blood Urine Nitrate Urine Bilirubin Urine Urobilinogen Ur Leukocyte Esterase Urine RBC Urine WBC Ur Epithelial Cells Urine Bacteria Ur Random Creatinine Ur Random Sodium Ur Random Urea Nitrogn Stool Occult Blood Negative 09/03/17 09/03/17 15:00 16:09 WBC RBC Hgb Hct MCV MCH MCHC RDW Plt Count MPV Gran % Lymph % (Auto) Dale % (Auto) Eos % (Auto) Baso % (Auto) Gran # Lymph # (Auto) Dale # (Auto) Eos # (Auto) Baso # (Auto) Sodium Potassium Chloride Carbon Dioxide Anion Gap BUN Creatinine Est GFR ( Amer) Est GFR (Non-Af Amer) POC Glucose (mg/dL) 239 H Random Glucose Calcium Total Bilirubin AST ALT Alkaline Phosphatase Total Protein Albumin Globulin Albumin/Globulin Ratio PTH Intact Whole Molec Urine Color Yellow Urine Appearance Cloudy Urine pH 6.0 Ur Specific [place] 1.025 Urine Protein >=300 H Urine Glucose (UA) 250 H Urine Ketones Negative Urine Blood Negative Urine Nitrate Positive H Urine Bilirubin Negative Urine Urobilinogen 0.2 Ur Leukocyte Esterase Small H Urine RBC 5 - 10 Urine WBC Tntc Ur Epithelial Cells 0 - 2 Urine Bacteria Many Ur Random Creatinine Ur Random Sodium Ur Random Urea Nitrogn Stool Occult Blood Assessment & Plan - Assessment and Plan (Free Text) Assessment: 36 yo male with extensive past medical history of DM type 1 with neuropathy, Multiple CVA's, CKD, HTN, DKA, Anxiety presenting with bilateral vision changes , acute on chronic kidney disease, anemia, CAD/KS history, Extensive DM with peripheral neuropathy, CHF, and Neurogenic bladder. Patient with new onset leukocytosis up to 17.2. New upper back ulcerations as well. Started on Ceftriaxone for antibiotic care. Monitor wounds/ulcerations. May need IV Vancomycin. Thank you for allowing me to participate in the care of the patient, we will follow with you.
[2017-09-04] MEDS: Levothyroxine 175 MCG TAB PO SCH (05:39)
[2017-09-04 06:27] LABS: BASO # 0.06 K/mm3 (0.0-2.0); BASO % 0.3 % (0.0-3.0); EOS # 0.1 (0.0-0.7); EOS % 0.6 % (1.5-5.0); GRAN # 14.64 (1.4-6.5); GRAN % 82.1 % (50.0-68.0); HEMOGLOBIN 7.5 g/dL (14.0-18.0); LYMPH # 1.4 (1.2-3.4); LYMPH % 7.7 % (22.0-35.0); MEAN CELL VOLUME 88.5 fl (80.0-105.0); MEAN CORPUSCULAR HEMOGLOBIN 28.6 pg (25.0-35.0); MEAN CORPUSCULAR HGB CONC 32.3 g/dl (31.0-37.0); MEAN PLATELET VOLUME 10.3 fl (7.0-11.0); MONO # 1.7 (0.1-0.6); MONO % 9.3 % (1.0-6.0); RBC 2.62 10^6/uL (3.5-6.1); RED CELL DISTRIBUTION WIDTH 14.4 % (11.5-14.5); WHITE BLOOD COUNT 17.8 10^3/ul (4.5-11.0)
[2017-09-04 06:50] LABS: ALB/GLOB RATIO 1.1 (1.1-1.8); CALCIUM 7.7 mg/dL (8.4-10.5)
--- NOTE | 2017-09-04 09:46 | CP.PCM.PN ---
<Demetria Headley - Last Filed: 09/04/17 13:57> Subjective - Date & Time of Evaluation Date of Evaluation: 09/04/17 Time of Evaluation: 09:45 - Subjective Subjective: Internal Medicine [facility] Hospitalist Service Patient seen and examined at bedside. Per nursing no acute events overnight. Patient had a BM last night after enema. States that abdominal discomfort and nauseous are improving. Offers no other complaints. Denies fevers/chills, N/V, headaches, dizziness, cp, palpitations, sob, abdominal pain. Objective - Vital Signs/Intake and Output Vital Signs (last 24 hours): Temp Pulse Resp BP Pulse Ox 97.9 F 80 20 164/82 H 95 09/04/17 07:31 09/04/17 07:31 09/04/17 07:31 09/04/17 07:31 09/04/17 07:31 Intake and Output: 09/04/17 09/04/17 06:59 18:59 Intake Total 540 Output Total 800 Balance -260 - Medications Medications: Current Medications Amlodipine Besylate (Norvasc) 5 mg PO DAILY [facility] Aspirin (Ecotrin) 81 mg PO DAILY [facility] Last Admin: 09/03/17 10:10 Dose: 81 mg Atorvastatin Calcium (Lipitor) 20 mg PO DIN [facility] Last Admin: 09/03/17 17:21 Dose: 20 mg Calcium Acetate (Phoslo) 1,334 mg PO WM [facility] Clonidine HCl (Catapres-Tts3 0.3 Mg/24 Hr) 1 patch TD Q7D@1000 [facility] [place] Clopidogrel Bisulfate (Plavix) 75 mg PO DAILY [facility] Last Admin: 09/03/17 10:07 Dose: 75 mg Docusate Sodium (Colace) 100 mg PO BID [facility] [place] Last Admin: 09/03/17 17:21 Dose: 100 mg Ergocalciferol (Drisdol 50,000 Intl Units Cap) 1 cap PO Q7D [facility] Last Admin: 09/03/17 11:54 Dose: 1 cap Furosemide (Lasix) 40 mg PO DAILY [facility] [place] Hydralazine HCl (Apresoline) 75 mg PO Q8 [facility] [place] Last Admin: 09/04/17 05:39 Dose: 75 mg Iron Sucrose 200 mg/ Sodium (Chloride) 110 mls @ 110 mls/hr IVPB DAILY [facility] Stop: 09/07/17 10:01 Last Admin: 09/03/17 12:05 Dose: 110 mls/hr Ceftriaxone Sodium (Rocephin 1 Gram Ivpb) 1 gm in 100 mls @ 100 mls/hr IVPB DAILY [facility] PRN Reason: Protocol Last Admin: 09/03/17 10:07 Dose: 100 mls/hr Insulin Detemir (Levemir) 20 unit SC Q12 [facility] Insulin Human Lispro (Humalog High) 0 units SC ACHS [facility] PRN Reason: Protocol Isosorbide Dinitrate (Isordil) 20 mg PO BID [facility] Last Admin: 09/03/17 17:21 Dose: 20 mg Labetalol HCl (Trandate) 400 mg PO TID [facility] [place] Last Admin: 09/03/17 17:22 Dose: 400 mg Lactulose (Enulose) 30 gm PO DAILY [facility] [place] Last Admin: 09/03/17 10:06 Dose: 30 gm Levothyroxine Sodium (Synthroid) 175 mcg PO 0600 [facility] [place] Last Admin: 09/04/17 05:39 Dose: 175 mcg Ondansetron HCl (Zofran Inj) 4 mg IVP Q4H PRN PRN Reason: Nausea/Vomiting Last Admin: 09/04/17 05:55 Dose: 4 mg Oxycodone/Acetaminophen (Percocet 10/325 Mg Tab) 1 tab PO Q6H PRN PRN Reason: Pain, moderate (4-7) Last Admin: 08/31/17 22:27 Dose: 1 tab Polyethylene Glycol (Miralax) 17 gm PO BID [facility] Last Admin: 09/03/17 17:21 Dose: 17 gm Tamsulosin HCl (Flomax) 0.4 mg PO DAILY [facility] [place] Last Admin: 09/03/17 10:09 Dose: 0.4 mg Vitamin B Complex/Vit C/Folic Acid (Nephro-Devi) 1 tab PO 0800 [facility] [place] Last Admin: 09/03/17 08:37 Dose: 1 tab Zolpidem Tartrate (Ambien) 5 mg PO HS PRN; Protocol PRN Reason: Insomnia Last Admin: 09/03/17 23:26 Dose: 5 mg - Labs Labs: 09/04/17 06:10 09/04/17 06:10 PT 11.4 SECONDS (9.4-12.5) 08/30/17 12:53 INR 0.99 (0.93-1.08) 08/30/17 12:53 APTT 26.0 Seconds (25.1-36.5) 08/30/17 12:53 - Additional Findings Additional findings: - Constitutional Appears: Well, Non-toxic, No Acute Distress, Chronically Ill - Head Exam Head Exam: ATRAUMATIC, NORMAL INSPECTION, NORMOCEPHALIC - Eye Exam Eye Exam: EOMI, Normal appearance Pupil Exam: PERRL - ENT Exam ENT Exam: Mucous Membranes Moist - Neck Exam Neck exam: Positive for: Full Rom - Respiratory Exam Respiratory Exam: Clear to Auscultation Bilateral, NORMAL BREATHING PATTERN. absent: Rales, Rhonchi, Wheezes - Cardiovascular Exam Cardiovascular Exam: REGULAR RHYTHM, +S1, +S2 - GI/Abdominal Exam GI & Abdominal Exam: Normal Bowel Sounds, Soft. absent: Guarding, Rebound, Rigid, Tenderness - Rectal Exam Rectal Exam: Deferred - Extremities Exam Extremities exam: Positive for: pedal edema (+2 pitting edema bilaterally), pedal pulses present Additional comments: Bilateral foot drop Decreased sensation in both feet - Back Exam Back exam: NORMAL INSPECTION, Right sided lumbar wound dressed with optifoam ( Per wound care: Old non healing surgical incision measuring 0.5x0.5x1cm. Moderate amount of seropurulent drainage noted) - Neurological Exam Neurological exam: Alert, Oriented x3 - Expanded Neurological Exam Expanded Sensory exam: Upper Extremity Light Touch: Abnormal Left, Abnormal Right Neuro motor strength exam: Left Upper Extremity: 5, Right Upper Extremity: 5, Left Lower Extremity: 0, Right Lower Extremity: 0 - Psychiatric Exam Psychiatric exam: Normal Affect, Normal Mood - Skin Skin Exam: Dry, Normal Color, Warm Assessment and Plan - Assessment and Plan (Free Text) Assessment: A/P: Patient is a 36 year old male with past medical history of mulitple CVA's, DM, CKD, presents to the ED for right eye vision loss, found to have elevated Cr , anemia: US of LE negative Right eye visual changes -Stable, afebrile -Patient had a history of multiple CVAs in the past -CT head: negative for ischemia/hemorrhage -Carotid US showed bilateral 0-19 percent proximal ICA stenosis, antegrade flow in both vertebral arteries -MRI brain could not be done due to presence of bladder pacemaker -Echo with bubble study mild concentric LV hypertrophy, normal EF, trace to mild MR -Continue Aspirin, Plavix, Lipitor -Neurology on consult, help appreciated -Pt's Ophthalmology Dr Matthews consulted, recommended primarily outpatient follow up -Physical Therapy recommends subacute rehab Factor V Leiden Mutation -Heterozygous mutation -Heme/Onc recommending therapeutic anticoagulation -Stool for occult blood negative Leukocytosis -Patient with white count of 17.8 today -Per nursing patient has a bed sore on his lower thoracic region; patient refuses to be repositioned and refuses care -Continue Rocephin 1 gm daily -Wound culture ordered, results pending -ID on consult, help appreciated Lumbar wound -Wound cultures collected -Lumbar CT showed no acute fracture, no spondylolysis or spondylolithesis, no evidence of osteomyelitis; mild multilevel degenerative disc disease without spinal stenosis; neurostimulator lead through the left S4 neural foraminal. -Wound care on consult -General surgery consulted for possible I+D Normocytic Anemia -Multifactorial anemia of chronic disease (ACD) and iron deficiency anemia -Hgb 7.5 today, asymptomatic -Continue aranesp, IV iron daily -Stool occult is negative -Heme/onc on consult, help appreciated Elevated Cr: 2/2 CLIFTON on CKD vs worsening CKD -Baseline Cr 2-3 -BUN/CR on admission 75/5.7 today -Continue Sevelamer 800mg PO TID -Phoslo 1,334mg PO WM -No indication for hemodialysis at this time per Nephro -Nephro on consult, help appreciated History of Hypertension -Continue home medications -Added clonidine patch -Lasix 40mg PO daily, Hydralazine 75 mg Q8H, Labetalol 400 mg TID -Added Norvasc 5mg PO daily History of [place] -Continue Aspirin 81mg -Plavix 75 mg PO daily -EKG showed NSR -LDL 84. Lipitor 20 mg daily Diabetes Mellitus Type 1/Peripheral Neuropathy: - HgA1c 7.3 - Levemir 20 units Q12H - ISS lispro medium Vitamin D Deficiency -Started Ergocalciferol 1 tab q7D CHF (diastolic dysfunction)/Bilateral Lower Extremity Swelling: -Lower extremity doppler negative for DVT -Last echo 07/2016: borderline concentric left ventricular hypertrophy, normal LVEF, grade I abnormal relaxation pattern History of Neurogenic Bladder with Chronic Lira and UTI -S/P bladder pacemaker -Continue Flomax 0.4mg PO daily -UA posititve for nitrates and small leuk esterase, urine culture pending -Antibiotics: Ceftraixone 1 gm IVP daily History of Hypothyroidism -Continue home synthroid 175 mcg -TSH 6.86, Free T4 1.06. -Repeat TSH outpatient in 4-6 weeks. Chronic Constipation -Colace 100mg PO BID, Miralax 17gm PO daily prn constipation -Lactulose 30 grams PO daily -Monitor for bowel function GI/DVT -Protonix 40mg IV daily -SCDs DISPO: Patient's PMD is Dr Wakefield, he will follow up with her upon discharge. PT recommending [facility] for discharge. ID consulted for Leukocytosis and low grade fever while on IV antibiotics. Plan discussed with Dr Yuliya Headley DO PGY-1 <Ector Dwyer - Last Filed: 09/05/17 13:52> Objective - Vital Signs/Intake and Output Vital Signs (last 24 hours): Temp Pulse Resp BP Pulse Ox 98.2 F 70 18 142/74 94 L 09/05/17 13:03 09/05/17 13:03 09/05/17 13:03 09/05/17 13:03 09/04/17 18:00 Intake and Output: 09/05/17 09/05/17 06:59 18:59 Intake Total 1440 0 Output Total 525 Balance 915 0 - Medications Medications: Current Medications Amlodipine Besylate (Norvasc) 5 mg PO DAILY [facility] Last Admin: 09/05/17 10:39 Dose: 5 mg Aspirin (Ecotrin) 81 mg PO DAILY [facility] [place] Last Admin: 09/05/17 10:39 Dose: 81 mg Atorvastatin Calcium (Lipitor) 20 mg PO DIN [facility] Last Admin: 09/04/17 17:23 Dose: 20 mg Calcium Acetate (Phoslo) 1,334 mg PO WM [facility] [place] Last Admin: 09/05/17 08:39 Dose: Not Given Clonidine HCl (Catapres-Tts3 0.3 Mg/24 Hr) 1 patch TD Q7D@1000 [facility] [place] Docusate Sodium (Colace) 100 mg PO BID [facility] [place] Last Admin: 09/05/17 10:40 Dose: 100 mg Ergocalciferol (Drisdol 50,000 Intl Units Cap) 1 cap PO Q7D [facility] [place] Last Admin: 09/03/17 11:54 Dose: 1 cap Furosemide (Lasix) 40 mg PO DAILY [facility] [place] Last Admin: 09/05/17 10:40 Dose: 40 mg Hydralazine HCl (Apresoline) 75 mg PO Q8 [facility] [place] Last Admin: 09/05/17 05:34 Dose: 75 mg Iron Sucrose 200 mg/ Sodium (Chloride) 110 mls @ 110 mls/hr IVPB DAILY [facility] [place] Stop: 09/07/17 10:01 Last Admin: 09/05/17 11:00 Dose: 110 mls/hr Cefepime HCl (Maxipime 1gm) 1 gm in 100 mls @ 100 mls/hr IVPB HS [facility] [place] PRN Reason: Protocol Last Admin: 09/04/17 22:16 Dose: 100 mls/hr Heparin Sodium/Sodium Chloride (Heparin 00417 Units/250ml 1/2 Normal Saline) 25 ,000 units in 250 mls @ 20.003 mls/hr IV .[id number] PRN; Protocol; 18 UNITS/KG/HR PRN Reason: ADJUST RATE PER PROTOCOL Last Admin: 09/05/17 12:05 Dose: 18 units/kg/hr, 20.003 mls/hr Insulin Detemir (Levemir) 25 unit SC Q12 [facility] [place] Last Admin: 09/05/17 10:40 Dose: 25 units Insulin Human Lispro (Humalog High) 0 units SC ACHS [facility] [place] PRN Reason: Protocol Last Admin: 09/05/17 08:28 Dose: Not Given Isosorbide Dinitrate (Isordil) 20 mg PO BID [facility] [place] Last Admin: 09/05/17 10:40 Dose: 20 mg Labetalol HCl (Trandate) 400 mg PO TID [facility] [place] Last Admin: 09/05/17 11:08 Dose: 400 mg Lactulose (Enulose) 30 gm PO DAILY [facility] [place] Last Admin: 09/05/17 10:41 Dose: 30 gm Levothyroxine Sodium (Synthroid) 175 mcg PO 0600 [facility] [place] Last Admin: 09/05/17 05:34 Dose: 175 mcg Ondansetron HCl (Zofran Inj) 4 mg IVP Q4H PRN PRN Reason: Nausea/Vomiting Last Admin: 09/04/17 18:54 Dose: 4 mg Polyethylene Glycol (Miralax) 17 gm PO BID [facility] [place] Last Admin: 09/05/17 10:42 Dose: 17 gm Povidone Iodine (Betadine 10% Topical Soln) 0 ml TOP DAILY [facility] [place] Last Admin: 09/04/17 17:29 Dose: 1 applic Tamsulosin HCl (Flomax) 0.4 mg PO DAILY [facility] [place] Last Admin: 09/05/17 10:39 Dose: 0.4 mg Vitamin B Complex/Vit C/Folic Acid (Nephro-Devi) 1 tab PO 0800 [facility] [place] Last Admin: 09/05/17 08:46 Dose: Not Given Zolpidem Tartrate (Ambien) 5 mg PO HS PRN; Protocol PRN Reason: Insomnia Last Admin: 09/03/17 23:26 Dose: 5 mg - Labs Labs: 09/05/17 06:00 09/05/17 06:00 PT 11.4 SECONDS (9.4-12.5) 08/30/17 12:53 INR 0.99 (0.93-1.08) 08/30/17 12:53 APTT 26.0 Seconds (25.1-36.5) 08/30/17 12:53 Attending/Attestation - Attestation I have personally seen and examined this patient.: Yes I have fully participated in the care of the patient.: Yes I have reviewed all pertinent clinical information, including history, physical exam and plan: Yes Notes (Text): 09/05/17 13:44 Attending note; Patient seen and examined with resident. Patient is complaining of mild nausea. Maribeth had BM yesterday. Patient is a 36 year old male with past medical history of multiple CVAs, diabetes, hypertension and CKD who presented with complaint of worsening vision for the past few days. He was seen by his soaker hides who recommended neurologic imaging. MRI brain was not able to be obtained secondary to presence of bladder pacemaker. CT head and carotid dopplers were negative for acute findings. Case discussed with neurologist in detail. Continue aspirin. Agreed to start renally adjusted dose of eliquis. Chronic kidney disease ; patient has uncontrolled diabetes and hypertension. Nephrology evaluation appreciated. No plan for dialysis now. But creatinine is increasing. Lasix dosage decreased. Monitor urine output. Anemia; possibly secondary to anemia of chronic disease. Patient is on IV iron. patient also has worsening renal function. Case discussed with missileman Dr. Beckman in detail. Stool occult blood is negative. History of chronic constipation. Continue MiraLAX, Colace and lactulose. Diabetes; increase insulin doasge. Hypertension; continue clonidine patch, hydralazine. Patient had low-grade temperature and elevated white count new. Patient has a wound in the left back. Culture done. Growing gram-negative rods. Identification pending. Started on IV Rocephin. ID evaluation appreciated. CT showed no significant abscess. Central rectal wall thickening noted. Case discussed with GI in detail. Monitor hemoglobin. Physical therapy evaluation appreciated. Subacute rehabilitation recommended. Patient has multiple medical issues. Needs close outpatient follow-up. Prognosis is poor. Upon discharge the patient will follow-up with . 09/05/17 13:50
[2017-09-04] MEDS: cefTRIAXone 1 gm 1 GM/100 ML BAG IVPB SCH (09:55)
[2017-09-04] MEDS: Multivitamin Vitamin B Complex (Nephro-Vite) Tab PO SCH (09:56)
[2017-09-04] MEDS: POLYETHYLENE GLYCOL 3350 17 GM/Dose PACKET PO SCH ×2 (09:57→17:23)
[2017-09-04] MEDS: Insulin Detemir 100 units/ml Vial (Levemir) SC SCH ×2 (10:00→22:28)
--- NOTE | 2017-09-04 10:32 | CP.PCM.PN ---
Subjective - Date & Time of Evaluation Date of Evaluation: 09/04/17 Time of Evaluation: 10:30 - Subjective Subjective: Nephrology Consultation Note: Assessment: Acute Kidney Injury (N17.9) likely hemodynamic Chronic Kidney Disease Stage 4 (N18.4) with nephrotic proteinuria likely due to diabetic nephropathy (E11.22), atrophic Rt Kidney, hx of recurrent CLIFTON chronic Anemia, Hypertension (I12.9), hx of CVA, CAD, chronic indwelling lópez Vit D deficiency, chronic edema, hyperphosphatemia Plan No acute need for renal replacement therapy at this time. pt aware that will need in near future. Hypertension control with meds as ordered. Patient not on ACEI/ARB likely due to advanced renal insuff. change to lasix 40 oral daily. started norvasc 5 mg/ day Monitor I/O, daily weights and renal function while in hospital continue with iron supplements. MVI and dose of aransep 60 mcg on 08/31/17 continue with statins continue with phos binders started weekly Vit D infectious work up as primary team and ID heme input noted asked RN to flush lópez to r/o catheter blockage Dose meds/antibiotics for reduced GFR. Avoid fleets enema/magnesium based laxatives. Avoid nephrotoxins/NSAIDs/ iodinated contrast (unless needed emergently) Glycemic control, renal diet Further work up for as per primary team. Thanks for allowing me to participate in care of your patient. Will follow with you. Please call if any Qs. had d/w team Dr Artis Mendoza Office: [phone] Chief Complaint; vision impairment reason for consult: CLIFTON on CKD HPI: Pt is a 36 y/o M with hx of type I diabetes Mellitus ( x 25 years) with associated retinopathy, neuropathy and likely diabetic nephropathy, HTN, CKD stage 4 with nephrotic syndrome (baseline cr in 3 range since feb 2017), hx of recurrent CLIFTON, chronic urine incontinence and chronic indwelling lópez hx of CVA , non ambulatory presented with complaints of visual impairment. renal consult for CKD management. pt hasn't followed in renal office. Denies chest pain, palpitation, shortness of breath, reports leg swelling Denies OTC/herbal meds/NSAIDs No recent iodinated contrast exposure. BP mostly high ROS: denies CP/SOB. c/o nausea and 1 episode of vomiting. denies pain abdomen. has chronic back pain. reports vision impairment rest other negative except as mentioned in HPI Physical Examination: General Appearance: Comfortable, in no acute respiratory distress, co- operative. obese Vitals reviewed and noted as below Head; Atraumatic, normocephalic ENT: no ulcers no thrush. Tongue is midline. Oropharynx: no rash or ulcers. EYES: Pupils are equal, round and reactive to light accommodation. Eye muscles and extraocular movement intact. Sclera is anicteric. has vision impaired Neck; supple no lymphadenopathy, no thyromegaly or bruit Lungs: Normal respiratory rate/effort. Breath sounds clear and bilateral equal Heart: Normal rate. s1s2 normal. No rub or gallop. Extremities: 1+ edema. No varicose veins Neurological: Patient is alert, awake and oriented x 3 chronic leg paresis Skin: dry and warm. Normal turgor. No rash. Palpitation: Normal elasticity for age Abdomen: Abdomen is soft. Bowel sounds +. There is no abdominal tenderness, no guarding/rigidity or organomegaly Psych: normal insight. normal affect MSK: no specific joint tenderness or swelling. Digits and nails normal, no deformity : kidney or bladder not palpable. has lópez catheter Labs/imaging/EKG reviewed. Past medical history, past surgical history, social history, allergy reviewed and noted as below Family hx; no hx of CKD. non contributory Work up UA: 3+ protein TSAT/ferritin 23%/28 Serology in past as DINA/ANCA negative. normal complements, HIV/Hep B and C were neg aldosterone 1, metanephrines were negative. renal artery doppler: no MAIKEL Rt kidney atrophy 8 cm, left kidney [address] abdomen: unremarkable kidneys and adrenals Objective - Vital Signs/Intake and Output Vital Signs (last 24 hours): Temp Pulse Resp BP Pulse Ox 97.9 F 80 20 148/93 H 95 09/04/17 07:31 09/04/17 07:31 09/04/17 07:31 09/04/17 09:56 09/04/17 07:31 Intake and Output: 09/04/17 09/04/17 06:59 18:59 Intake Total 540 Output Total 800 Balance -260 - Medications Medications: Current Medications Amlodipine Besylate (Norvasc) 5 mg PO DAILY [facility] Last Admin: 09/04/17 09:55 Dose: 5 mg Aspirin (Ecotrin) 81 mg PO DAILY [facility] Last Admin: 09/04/17 09:52 Dose: 81 mg Atorvastatin Calcium (Lipitor) 20 mg PO DIN [facility] Last Admin: 09/03/17 17:21 Dose: 20 mg Calcium Acetate (Phoslo) 1,334 mg PO WM [facility] Clonidine HCl (Catapres-Tts3 0.3 Mg/24 Hr) 1 patch TD Q7D@1000 [facility] Clopidogrel Bisulfate (Plavix) 75 mg PO DAILY [facility] Last Admin: 09/04/17 09:55 Dose: 75 mg Docusate Sodium (Colace) 100 mg PO BID [facility] Last Admin: 09/04/17 09:52 Dose: 100 mg Ergocalciferol (Drisdol 50,000 Intl Units Cap) 1 cap PO Q7D [facility] Last Admin: 09/03/17 11:54 Dose: 1 cap Furosemide (Lasix) 40 mg PO DAILY [facility] Last Admin: 09/04/17 09:56 Dose: 40 mg Hydralazine HCl (Apresoline) 75 mg PO Q8 [facility] Last Admin: 09/04/17 05:39 Dose: 75 mg Iron Sucrose 200 mg/ Sodium (Chloride) 110 mls @ 110 mls/hr IVPB DAILY [facility] Stop: 09/07/17 10:01 Last Admin: 09/04/17 09:54 Dose: 110 mls/hr Ceftriaxone Sodium (Rocephin 1 Gram Ivpb) 1 gm in 100 mls @ 100 mls/hr IVPB DAILY [facility] PRN Reason: Protocol Last Admin: 09/04/17 09:55 Dose: 100 mls/hr Insulin Detemir (Levemir) 20 unit SC Q12 [facility] Insulin Human Lispro (Humalog High) 0 units SC ACHS [facility] PRN Reason: Protocol Isosorbide Dinitrate (Isordil) 20 mg PO BID [facility] Last Admin: 09/04/17 09:56 Dose: 20 mg Labetalol HCl (Trandate) 400 mg PO TID [facility] Last Admin: 09/04/17 09:53 Dose: 400 mg Lactulose (Enulose) 30 gm PO DAILY [facility] Last Admin: 09/04/17 10:03 Dose: Not Given Levothyroxine Sodium (Synthroid) 175 mcg PO 0600 [facility] Last Admin: 09/04/17 05:39 Dose: 175 mcg Ondansetron HCl (Zofran Inj) 4 mg IVP Q4H PRN PRN Reason: Nausea/Vomiting Last Admin: 09/04/17 10:21 Dose: 4 mg Oxycodone/Acetaminophen (Percocet 10/325 Mg Tab) 1 tab PO Q6H PRN PRN Reason: Pain, moderate (4-7) Last Admin: 08/31/17 22:27 Dose: 1 tab Polyethylene Glycol (Miralax) 17 gm PO BID [facility] Last Admin: 09/04/17 09:57 Dose: 17 gm Tamsulosin HCl (Flomax) 0.4 mg PO DAILY [facility] Last Admin: 09/04/17 09:53 Dose: 0.4 mg Vitamin B Complex/Vit C/Folic Acid (Nephro-Devi) 1 tab PO 0800 [facility] Last Admin: 09/04/17 09:56 Dose: 1 tab Zolpidem Tartrate (Ambien) 5 mg PO HS PRN; Protocol PRN Reason: Insomnia Last Admin: 09/03/17 23:26 Dose: 5 mg - Labs Labs: 09/04/17 06:10 09/04/17 06:10 PT 11.4 SECONDS (9.4-12.5) 08/30/17 12:53 INR 0.99 (0.93-1.08) 08/30/17 12:53 APTT 26.0 Seconds (25.1-36.5) 08/30/17 12:53
--- NOTE | 2017-09-04 11:37 | CP.PCM.CON ---
History of Present Illness - History of Present Illness History of Present Illness: Doron Aleman PGY1 Surgery Consult Note for Dr. Walker Mr. Bib Hood is a 36 year old male with a past medical history of DM1, CVA x 6 (08/2013-12/2013), neurogenic bladder with chronic indwelling lópez and s /p urinary bladder stimulator, CAD s/p [place], DKA, CKD (not on dialysis), and factor V Leiden heterozygous mutation who was admitted with blurry vision and concern for TIA/CVA. Patient states that he saw his clinical transplant coordinator and PMD and they recommended that he go to ER for further evaluation. Patient is wheelchair bound due to his prior strokes, and has an chronic indwelling urinary catheter for his neurogenic bladder. Patient had urinary bladder stimulator placed by Dr. Lechuga in September 2016. He states that 5 months ago, his home health aide noted the lesion on his left buttox at the location of insertion and received wound care and antibiotics for it during that time which improved it. Patient denies fevers/chills, cough, abdominal pain or changes in bowel habits. He does complain of nausea but not vomiting. 12-pt ROS was reviewed and is otherwise unremarkable. PMD: Dr. Araseli Wakefield Urology: Dr. Jeyson Lechuga PMH: As above PSH: Urinary bladder stimulator placement (2016) Meds: As per MAR Allergies: Bactrim SHx: denies tobacco, alcohol, and illicit drug use. Wheelchair-bound due to stroke. Home health aide assistance. FHx: Grandmother with strokes and [place] Review of Systems - Review of Systems All systems: reviewed and no additional remarkable complaints except (as per HPI ) Past Patient History - Infectious Disease Hx of Infectious Diseases: None - Tetanus Immunizations Tetanus Immunization: Unknown - Past Medical History & Family History Past Medical History?: Yes - Past Social History Smoking Status: Never Smoked Alcohol: None Drugs: Denies - CARDIAC Hx Cardiac Disorders: Yes Hx Congestive Heart Failure: No Hx Heart Attack: Yes Hx Hypercholesterolemia: Yes Hx Hypertension: Yes - PULMONARY Hx Chronic Obstructive Pulmonary Disease (COPD): No - NEUROLOGICAL HX Cerebrovascular Accident: Yes (12/2013 Bilateral Lower extremities flaccid) - HEENT Hx HEENT Problems: Yes (wears glasses, recent vision loss due to cva) Hx Blind: No Hx Deafness: No Hx Difficulty Chewing: No Hx Epistaxis: No Hx Glaucoma: No - RENAL Hx Chronic Kidney Disease: Yes ("interstem, 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") Hx Pyelonephritis: Yes - ENDOCRINE/METABOLIC Hx Diabetes Mellitus Type 1: Yes (dx at age 10.) Hx Diabetes Mellitus Type 2: No Hx Hypothyroidism: Yes (synthroid) - HEMATOLOGICAL/ONCOLOGICAL Hx Blood Disorders: No Hx AIDS: No Hx Anemia: No Hx Cancer: No Hx Chemotherapy: No Hx Cirrhosis: No Hx Hemophilia: No Hx Hepatitis A: No Hx Hepatitis B: No Hx Hepatitis C: No Hx Human Immunodeficiency Virus (HIV): No Hx Metastesis: No Hx Shingles: No Hx Unexplained Bleeding: No - INTEGUMENTARY Hx Dermatological Problems: No Hx Basil Cell: No Hx Eczema: No Hx Melanoma: No Hx Psoriasis: No Hx Squamous Cell: No - MUSCULOSKELETAL/RHEUMATOLOGICAL Hx Falls: Yes Other/Comment: wheelchair bound - GASTROINTESTINAL Hx Gastrointestinal Disorders: Yes (colitis) - GENITOURINARY/GYNECOLOGICAL Hx Genitourinary Disorders: Yes (chronic indwelling lópez) Hx Incontinence: Yes Hx Urinary Tract Infection: Yes (multiple, MRSA) - PSYCHIATRIC Hx Psychophysiologic Disorder: Yes Hx Anxiety: Yes - SURGICAL HISTORY Hx Surgeries: Yes Hx Cardiac Catheterization: No Hx Coronary Stent: No Other/Comment: bladder surgery - ANESTHESIA Hx Anesthesia: Yes Hx Anesthesia Reactions: No Hx Malignant Hyperthermia: No Meds Allergies/Adverse Reactions: Allergies Allergy/AdvReac Type Severity Reaction Status Date / Time sulfamethoxazole Allergy ANAPHYLAXIS Verified 01/16/17 13:45 [From Bactrim] trimethoprim [From Bactrim] Allergy ANAPHYLAXIS Verified 01/16/17 13:45 - Medications Medications: Current Medications Amlodipine Besylate (Norvasc) 5 mg PO DAILY [facility] Last Admin: 09/04/17 09:55 Dose: 5 mg Aspirin (Ecotrin) 81 mg PO DAILY [facility] Last Admin: 09/04/17 09:52 Dose: 81 mg Atorvastatin Calcium (Lipitor) 20 mg PO DIN [facility] Last Admin: 09/03/17 17:21 Dose: 20 mg Calcium Acetate (Phoslo) 1,334 mg PO WM [facility] Clonidine HCl (Catapres-Tts3 0.3 Mg/24 Hr) 1 patch TD Q7D@1000 [facility] Clopidogrel Bisulfate (Plavix) 75 mg PO DAILY [facility] Last Admin: 06/26/18 09:55 Dose: 75 mg Docusate Sodium (Colace) 100 mg PO BID [facility] Last Admin: 09/04/17 09:52 Dose: 100 mg Ergocalciferol (Drisdol 50,000 Intl Units Cap) 1 cap PO Q7D [facility] Last Admin: 09/03/17 11:54 Dose: 1 cap Furosemide (Lasix) 40 mg PO DAILY [facility] Last Admin: 09/04/17 09:56 Dose: 40 mg Hydralazine HCl (Apresoline) 75 mg PO Q8 [facility] Last Admin: 09/04/17 05:39 Dose: 75 mg Iron Sucrose 200 mg/ Sodium (Chloride) 110 mls @ 110 mls/hr IVPB DAILY [facility] Stop: 09/07/17 10:01 Last Admin: 09/04/17 09:54 Dose: 110 mls/hr Ceftriaxone Sodium (Rocephin 1 Gram Ivpb) 1 gm in 100 mls @ 100 mls/hr IVPB DAILY [facility] PRN Reason: Protocol Last Admin: 09/04/17 09:55 Dose: 100 mls/hr Insulin Detemir (Levemir) 20 unit SC Q12 [facility] Insulin Human Lispro (Humalog High) 0 units SC ACHS [facility] PRN Reason: Protocol Isosorbide Dinitrate (Isordil) 20 mg PO BID [facility] Last Admin: 09/04/17 09:56 Dose: 20 mg Labetalol HCl (Trandate) 400 mg PO TID [facility] Last Admin: 09/04/17 09:53 Dose: 400 mg Lactulose (Enulose) 30 gm PO DAILY [facility] Last Admin: 09/04/17 10:03 Dose: Not Given Levothyroxine Sodium (Synthroid) 175 mcg PO 0600 [facility] Last Admin: 09/04/17 05:39 Dose: 175 mcg Ondansetron HCl (Zofran Inj) 4 mg IVP Q4H PRN PRN Reason: Nausea/Vomiting Last Admin: 09/04/17 10:21 Dose: 4 mg Oxycodone/Acetaminophen (Percocet 10/325 Mg Tab) 1 tab PO Q6H PRN PRN Reason: Pain, moderate (4-7) Last Admin: 08/31/17 22:27 Dose: 1 tab Polyethylene Glycol (Miralax) 17 gm PO BID [facility] Last Admin: 09/04/17 09:57 Dose: 17 gm Tamsulosin HCl (Flomax) 0.4 mg PO DAILY [facility] Last Admin: 09/04/17 09:53 Dose: 0.4 mg Vitamin B Complex/Vit C/Folic Acid (Nephro-Devi) 1 tab PO 0800 [facility] Last Admin: 09/04/17 09:56 Dose: 1 tab Zolpidem Tartrate (Ambien) 5 mg PO HS PRN; Protocol PRN Reason: Insomnia Last Admin: 09/03/17 23:26 Dose: 5 mg Physical Exam - Constitutional Appears: Well, Non-toxic, No Acute Distress - Head Exam Head Exam: NORMAL INSPECTION - Eye Exam Eye Exam: Normal appearance - ENT Exam ENT Exam: Mucous Membranes Moist - Neck Exam Neck exam: Positive for: Normal Inspection - Respiratory Exam Respiratory Exam: NORMAL BREATHING PATTERN. absent: Respiratory Distress - Cardiovascular Exam Cardiovascular Exam: RRR - GI/Abdominal Exam GI & Abdominal Exam: Soft. absent: Distended, Tenderness - Exam Additional comments: chronic indwelling lópez catheter draining yellow clear urine - Extremities Exam Extremities exam: Negative for: full ROM (b/l flaccid LE paralysis; full ROM UE b/l) - Back Exam Back exam: NORMAL INSPECTION - Neurological Exam Neurological exam: Alert - Psychiatric Exam Psychiatric exam: Normal Mood - Skin Additional comments: left buttox 3cm lesion with endurated margins; not able to express purulent fluid Results - Vital Signs Recent Vital Signs: Last Vital Signs Temp 97.9 F 09/04/17 07:31 Pulse 80 09/04/17 07:31 Resp 20 09/04/17 07:31 BP 148/93 H 09/04/17 09:56 Pulse Ox 95 09/04/17 07:31 - Labs Result Diagrams: 09/04/17 06:10 09/04/17 06:10 Labs: Laboratory Results - last 24 hr 08/31/17 09/01/17 09/01/17 11:45 07:30 07:30 WBC RBC Hgb Hct MCV MCH MCHC RDW Plt Count MPV Gran % Lymph % (Auto) Hod[place]eman % (Auto) Eos % (Auto) Baso % (Auto) Gran # Lymph # (Auto) Hodgeman # (Auto) Eos # (Auto) Baso # (Auto) Lupus Anticoagulant see note LA PTT Screen 44 H dRVVT Mixing Study 37 dRVVT Mix Interpret Not indicated Protein C Activity Protein S Activity 85 Sodium Potassium Chloride Carbon Dioxide Anion Gap BUN Creatinine Est GFR ( Amer) Est GFR (Non-Af Amer) POC Glucose (mg/dL) Random Glucose Calcium Phosphorus Magnesium Total Bilirubin AST ALT Alkaline Phosphatase Total Protein Albumin Globulin Albumin/Globulin Ratio Procalcitonin PTH Intact Whole Molec 65 H Urine Color Urine Appearance Urine pH Ur Specific [place] Urine Protein Urine Glucose (UA) Urine Ketones Urine Blood Urine Nitrate Urine Bilirubin Urine Urobilinogen Ur Leukocyte Esterase Urine RBC Urine WBC Ur Epithelial Cells Urine Bacteria Stool Occult Blood 09/01/17 09/03/17 09/03/17 07:30 11:46 13:45 WBC RBC Hgb Hct MCV MCH MCHC RDW Plt Count MPV Gran % Lymph % (Auto) Hod[place]eman % (Auto) Eos % (Auto) Baso % (Auto) Gran # Lymph # (Auto) Hod[place]eman # (Auto) Eos # (Auto) Baso # (Auto) Lupus Anticoagulant LA PTT Screen dRVVT Mixing Study dRVVT Mix Interpret Protein C Activity 84 Protein S Activity Sodium Potassium Chloride Carbon Dioxide Anion Gap BUN Creatinine Est GFR ( Amer) Est GFR (Non-Af Amer) POC Glucose (mg/dL) 201 H Random Glucose Calcium Phosphorus Magnesium Total Bilirubin AST ALT Alkaline Phosphatase Total Protein Albumin Globulin Albumin/Globulin Ratio Procalcitonin 0.31 PTH Intact Whole Molec Urine Color Urine Appearance Urine pH Ur Specific [place] Urine Protein Urine Glucose (UA) Urine Ketones Urine Blood Urine Nitrate Urine Bilirubin Urine Urobilinogen Ur Leukocyte Esterase Urine RBC Urine WBC Ur Epithelial Cells Urine Bacteria Stool Occult Blood 09/03/17 09/03/17 09/03/17 14:30 15:00 16:09 WBC RBC Hgb Hct MCV MCH MCHC RDW Plt Count MPV Gran % Lymph % (Auto) Hod[place]eman % (Auto) Eos % (Auto) Baso % (Auto) Gran # Lymph # (Auto) Hod[place]eman # (Auto) Eos # (Auto) Baso # (Auto) Lupus Anticoagulant LA PTT Screen dRVVT Mixing Study dRVVT Mix Interpret Protein C Activity Protein S Activity Sodium Potassium Chloride Carbon Dioxide Anion Gap BUN Creatinine Est GFR ( Amer) Est GFR (Non-Af Amer) POC Glucose (mg/dL) 239 H Random Glucose Calcium Phosphorus Magnesium Total Bilirubin AST ALT Alkaline Phosphatase Total Protein Albumin Globulin Albumin/Globulin Ratio Procalcitonin PTH Intact Whole Molec Urine Color Yellow Urine Appearance Cloudy Urine pH 6.0 Ur Specific [place] 1.025 Urine Protein >=300 H Urine Glucose (UA) 250 H Urine Ketones Negative Urine Blood Negative Urine Nitrate Positive H Urine Bilirubin Negative Urine Urobilinogen 0.2 Ur Leukocyte Esterase Small H Urine RBC 5 - 10 Urine WBC Tntc Ur Epithelial Cells 0 - 2 Urine Bacteria Many Stool Occult Blood Negative 09/03/17 09/04/17 09/04/17 21:11 06:10 06:10 WBC 17.8 H RBC 2.62 L Hgb 7.5 L Hct 23.2 L MCV 88.5 MCH 28.6 MCHC 32.3 RDW 14.4 Plt Count 326 MPV 10.3 Gran % 82.1 H Lymph % (Auto) 7.7 L Hodgeman % (Auto) 9.3 H Eos % (Auto) 0.6 L Baso % (Auto) 0.3 Gran # 14.64 H Lymph # (Auto) 1.4 Hodgeman # (Auto) 1.7 H Eos # (Auto) 0.1 Baso # (Auto) 0.06 Lupus Anticoagulant LA PTT Screen dRVVT Mixing Study dRVVT Mix Interpret Protein C Activity Protein S Activity Sodium 135 Potassium 4.7 Chloride 103 Carbon Dioxide 20 L Anion Gap 18 BUN 75 H Creatinine 5.7 H Est GFR ( Amer) 14 Est GFR (Non-Af Amer) 11 POC Glucose (mg/dL) 256 H Random Glucose 268 H Calcium 7.7 L Phosphorus 6.9 H Magnesium 2.3 H Total Bilirubin 0.4 AST 11 L ALT 13 Alkaline Phosphatase 91 Total Protein 5.9 Albumin 3.0 Globulin 2.8 Albumin/Globulin Ratio 1.1 Procalcitonin PTH Intact Whole Molec Urine Color Urine Appearance Urine pH Ur Specific [place] Urine Protein Urine Glucose (UA) Urine Ketones Urine Blood Urine Nitrate Urine Bilirubin Urine Urobilinogen Ur Leukocyte Esterase Urine RBC Urine WBC Ur Epithelial Cells Urine Bacteria Stool Occult Blood 09/04/17 07:32 WBC RBC Hgb Hct MCV MCH MCHC RDW Plt Count MPV Gran % Lymph % (Auto) Hodgeman % (Auto) Eos % (Auto) Baso % (Auto) Gran # Lymph # (Auto) Hod[place]eman # (Auto) Eos # (Auto) Baso # (Auto) Lupus Anticoagulant LA PTT Screen dRVVT Mixing Study dRVVT Mix Interpret Protein C Activity Protein S Activity Sodium Potassium Chloride Carbon Dioxide Anion Gap BUN Creatinine Est GFR ( Amer) Est GFR (Non-Af Amer) POC Glucose (mg/dL) 258 H Random Glucose Calcium Phosphorus Magnesium Total Bilirubin AST ALT Alkaline Phosphatase Total Protein Albumin Globulin Albumin/Globulin Ratio Procalcitonin PTH Intact Whole Molec Urine Color Urine Appearance Urine pH Ur Specific [place] Urine Protein Urine Glucose (UA) Urine Ketones Urine Blood Urine Nitrate Urine Bilirubin Urine Urobilinogen Ur Leukocyte Esterase Urine RBC Urine WBC Ur Epithelial Cells Urine Bacteria Stool Occult Blood Assessment & Plan - Assessment and Plan (Free Text) Assessment: 36-year-old male with a past medical history of DM 1 and extensive associated comorbidities who presents for changes in vision; CVA/TIA ruled out. General surgery was consulted for a left buttocks lesion overlying the site of placement of a urinary bladder stimulator. Given the recurrent nature of the lesion, this could be a result of an underlying infection in the stimulator, which would require removal. Plan: CT pelvis ordered to evaluate region Continue antibiotics per ID Wound culture pending Urine culture pending; history of MRSA in urine Consider urology consult for evaluation and possible removal of stimulator; might require removal by Dr. Lechuga as he placed it Continue wound care Apply Betadine upon dressing change Strict glycemic control Further recs per attending Case was reviewed and discussed with Dr. Walker
--- NOTE | 2017-09-04 12:14 | CT ---
PROCEDURE: CT Lumbar Spine without contrast HISTORY: Evaluate lumbo-sacral area; hx lumbosacral wound COMPARISON: None. TECHNIQUE: Axial computed tomography images were obtained of the lumbar spine without the use of intravenous contrast. Coronal and sagittal reformatted images were created and reviewed. Radiation dose: Total exam DLP = 1545.01 mGy-cm. This CT exam was performed using one or more of the following dose reduction techniques: Automated exposure control, adjustment of the mA and/or kV according to patient size, and/or use of iterative reconstruction technique. FINDINGS: VERTEBRAE: There is normal alignment of the lumbar vertebral bodies. There is normal lumbar lordosis. There is no acute fracture, spondylolysis or spondylolisthesis. Bone mineralization is normal. The paraspinous soft tissues are normal. Imaged portion of the retroperitoneum is within normal limits. DISCS/SPINAL CANAL/NEURAL FORAMINA: L1-2: No large disc herniation, neural foraminal or spinal canal stenosis. L2-3: No large disc herniation, neural foraminal or spinal canal stenosis. L3-4: No large disc herniation, neural foraminal or spinal canal stenosis. L4-5: Mild diffuse posterior disc bulge. Mild neural foraminal. No spinal canal stenosis L5-S1: Mild posterior disc bulge without neural foraminal or spinal canal stenosis. PARASPINAL SOFT TISSUES: The paraspinous soft tissues are normal. OTHER FINDINGS: There is a neurostimulator lead through the left S4 neural foraminal into the pelvis. . IMPRESSION: No acute fracture, spondylolysis or spondylolisthesis. No evidence of osteomyelitis in the visualized sacrum on CT examination. Mild multilevel degenerative disc disease without spinal canal stenosis.
[2017-09-04] MEDS: Insulin Lispro (HUMAlog) HIGH Coverage SC SCH ×3 (12:58→22:28)
--- NOTE | 2017-09-04 15:02 | CT ---
PROCEDURE: CT pelvis HISTORY: possible infected urinary bladder stimulator COMPARISON: Not available TECHNIQUE: 2.5 mm contiguous axial sections were acquired through the pelvis, from the iliac crests to the perineum. Total exam DLP: 1359.88 mGy-cm This CT exam was performed using 1 or more of the following dose reduction techniques: Automated exposure control, adjustment of the mA and/or kV according to patient size, and/or use of iterative reconstruction technique. FINDINGS: There is diffuse mural thickening of the rectum. This is a nonspecific finding. There is perirectal infiltration/ inflammatory change. The possibility of a proctitis must be considered. Cannot rule out neoplasm. Consider evaluation with colonoscopy. No other abnormal bowel loops are appreciated. A normal appendix is identified. The urinary bladder is decompressed around a Lira catheter balloon. No perivesical inflammatory change/infiltration is evident. A subcutaneous electrical stimulator is noted with an electrode extending to the left post oral lateral aspect of the mid rectum. There is no significant osseous abnormality identified. IMPRESSION: No abscess identified. Possible proctitis. Rule out neoplasm of the rectal wall. Recommend evaluation with colonoscopy.
--- NOTE | 2017-09-04 16:30 | CP.PCM.CON ---
History of Present Illness - History of Present Illness History of Present Illness: Infectious Disease Follow Up: September 04, 2017 36 yo male with initial presentation of visual impairment where his right eye had a blacking out and blurry vision in the left eye. The patient was found to have lower back/upper left buttock ulceration and new onset leukocytosis. Mild nausea. Vision improving slowly. No other complaints. Generalized lower body weakness/paralysis. Past Patient History - Infectious Disease Hx of Infectious Diseases: None - Tetanus Immunizations Tetanus Immunization: Unknown - Past Medical History & Family History Past Medical History?: Yes - Past Social History Smoking Status: Never Smoked Alcohol: None Drugs: Denies - CARDIAC Hx Cardiac Disorders: Yes Hx Congestive Heart Failure: No Hx Heart Attack: Yes Hx Hypercholesterolemia: Yes Hx Hypertension: Yes - PULMONARY Hx Chronic Obstructive Pulmonary Disease (COPD): No - NEUROLOGICAL HX Cerebrovascular Accident: Yes (12/2013 Bilateral Lower extremities flaccid) - HEENT Hx HEENT Problems: Yes (wears glasses, recent vision loss due to cva) Hx Blind: No Hx Deafness: No Hx Difficulty Chewing: No Hx Epistaxis: No Hx Glaucoma: No - RENAL Hx Chronic Kidney Disease: Yes ("interstem, 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") Hx Pyelonephritis: Yes - ENDOCRINE/METABOLIC Hx Diabetes Mellitus Type 1: Yes (dx at age 10.) Hx Diabetes Mellitus Type 2: No Hx Hypothyroidism: Yes (synthroid) - HEMATOLOGICAL/ONCOLOGICAL Hx Blood Disorders: No Hx AIDS: No Hx Anemia: No Hx Cancer: No Hx Chemotherapy: No Hx Cirrhosis: No Hx Hemophilia: No Hx Hepatitis A: No Hx Hepatitis B: No Hx Hepatitis C: No Hx Human Immunodeficiency Virus (HIV): No Hx Metastesis: No Hx Shingles: No Hx Unexplained Bleeding: No - INTEGUMENTARY Hx Dermatological Problems: No Hx Basil Cell: No Hx Eczema: No Hx Melanoma: No Hx Psoriasis: No Hx Squamous Cell: No - MUSCULOSKELETAL/RHEUMATOLOGICAL Hx Falls: Yes Other/Comment: wheelchair bound - GASTROINTESTINAL Hx Gastrointestinal Disorders: Yes (colitis) - GENITOURINARY/GYNECOLOGICAL Hx Genitourinary Disorders: Yes (chronic indwelling lópez) Hx Incontinence: Yes Hx Urinary Tract Infection: Yes (multiple, MRSA) - PSYCHIATRIC Hx Psychophysiologic Disorder: Yes Hx Anxiety: Yes - SURGICAL HISTORY Hx Surgeries: Yes Hx Cardiac Catheterization: No Hx Coronary Stent: No Other/Comment: bladder surgery - ANESTHESIA Hx Anesthesia: Yes Hx Anesthesia Reactions: No Hx Malignant Hyperthermia: No Meds Allergies/Adverse Reactions: Allergies Allergy/AdvReac Type Severity Reaction Status Date / Time sulfamethoxazole Allergy ANAPHYLAXIS Verified 01/16/17 13:45 [From Bactrim] trimethoprim [From Bactrim] Allergy ANAPHYLAXIS Verified 01/16/17 13:45 - Medications Medications: Current Medications Amlodipine Besylate (Norvasc) 5 mg PO DAILY [facility] Last Admin: 09/04/17 09:55 Dose: 5 mg Aspirin (Ecotrin) 81 mg PO DAILY [facility] Last Admin: 09/04/17 09:52 Dose: 81 mg Atorvastatin Calcium (Lipitor) 20 mg PO DIN [facility] Last Admin: 09/03/17 17:21 Dose: 20 mg Calcium Acetate (Phoslo) 1,334 mg PO WM [facility] Clonidine HCl (Catapres-Tts3 0.3 Mg/24 Hr) 1 patch TD Q7D@1000 [facility] Clopidogrel Bisulfate (Plavix) 75 mg PO DAILY [facility] Last Admin: 09/04/17 09:55 Dose: 75 mg Docusate Sodium (Colace) 100 mg PO BID [facility] Last Admin: 09/04/17 09:52 Dose: 100 mg Ergocalciferol (Drisdol 50,000 Intl Units Cap) 1 cap PO Q7D [facility] Last Admin: 09/03/17 11:54 Dose: 1 cap Furosemide (Lasix) 40 mg PO DAILY [facility] Last Admin: 09/04/17 09:56 Dose: 40 mg Hydralazine HCl (Apresoline) 75 mg PO Q8 [facility] Last Admin: 09/04/17 05:39 Dose: 75 mg Iron Sucrose 200 mg/ Sodium (Chloride) 110 mls @ 110 mls/hr IVPB DAILY [facility] Stop: 09/07/17 10:01 Last Admin: 09/04/17 09:54 Dose: 110 mls/hr Ceftriaxone Sodium (Rocephin 1 Gram Ivpb) 1 gm in 100 mls @ 100 mls/hr IVPB DAILY [facility] PRN Reason: Protocol Last Admin: 09/04/17 09:55 Dose: 100 mls/hr Iron Sucrose 200 mg/ Sodium (Chloride) 110 mls @ 110 mls/hr IVPB ONCE ONE Stop: 09/04/17 16:54 Insulin Detemir (Levemir) 20 unit SC Q12 [facility] Insulin Human Lispro (Humalog High) 0 units SC ACHS [facility] PRN Reason: Protocol Isosorbide Dinitrate (Isordil) 20 mg PO BID [facility] Last Admin: 09/04/17 09:56 Dose: 20 mg Labetalol HCl (Trandate) 400 mg PO TID [facility] Last Admin: 09/04/17 09:53 Dose: 400 mg Lactulose (Enulose) 30 gm PO DAILY [facility] Last Admin: 09/04/17 10:03 Dose: Not Given Levothyroxine Sodium (Synthroid) 175 mcg PO 0600 [facility] Last Admin: 09/04/17 05:39 Dose: 175 mcg Ondansetron HCl (Zofran Inj) 4 mg IVP Q4H PRN PRN Reason: Nausea/Vomiting Last Admin: 09/04/17 10:21 Dose: 4 mg Oxycodone/Acetaminophen (Percocet 10/325 Mg Tab) 1 tab PO Q6H PRN PRN Reason: Pain, moderate (4-7) Last Admin: 08/31/17 22:27 Dose: 1 tab Polyethylene Glycol (Miralax) 17 gm PO BID [facility] Last Admin: 09/04/17 09:57 Dose: 17 gm Povidone Iodine (Betadine 10% Topical Soln) 0 ml TOP DAILY [facility] Tamsulosin HCl (Flomax) 0.4 mg PO DAILY [facility] Last Admin: 09/04/17 09:53 Dose: 0.4 mg Vitamin B Complex/Vit C/Folic Acid (Nephro-Devi) 1 tab PO 0800 [facility] Last Admin: 09/04/17 09:56 Dose: 1 tab Zolpidem Tartrate (Ambien) 5 mg PO HS PRN; Protocol PRN Reason: Insomnia Last Admin: 09/03/17 23:26 Dose: 5 mg Physical Exam - Constitutional Appears: Non-toxic, No Acute Distress, Chronically Ill - Head Exam Head Exam: ATRAUMATIC, NORMOCEPHALIC - Eye Exam Eye Exam: EOMI Pupil Exam: NORMAL ACCOMODATION, PERRL - ENT Exam ENT Exam: Mucous Membranes Moist, Normal External Ear Exam, TM's Normal Bilaterally - Neck Exam Neck exam: Positive for: Full Rom, Normal Inspection - Respiratory Exam Respiratory Exam: Clear to Auscultation Bilateral, NORMAL BREATHING PATTERN. absent: Rales, Rhonchi, Wheezes - Cardiovascular Exam Cardiovascular Exam: REGULAR RHYTHM, RRR, +S1, +S2 - GI/Abdominal Exam GI & Abdominal Exam: Normal Bowel Sounds, Soft. absent: Distended, Tenderness - Exam Additional comments: chronic indwelling lópez catheter draining yellow clear urine - Extremities Exam Extremities exam: Positive for: joint swelling, pedal edema. Negative for: full ROM (b/l flaccid LE paralysis; full ROM UE b/l) - Neurological Exam Neurological exam: Alert, CN II-XII Intact, Oriented x3 - Psychiatric Exam Psychiatric exam: Normal Affect, Normal Mood - Skin Additional comments: 3cm diameter left buttock ulcer. Results - Vital Signs Recent Vital Signs: Last Vital Signs Temp 97.9 F 09/04/17 07:31 Pulse 80 09/04/17 07:31 Resp 20 09/04/17 07:31 BP 148/93 H 09/04/17 09:56 Pulse Ox 95 09/04/17 07:31 - Labs Result Diagrams: 09/04/17 06:10 09/04/17 06:10 Labs: Laboratory Results - last 24 hr 09/01/17 09/01/17 09/01/17 07:30 07:30 07:30 WBC RBC Hgb Hct MCV MCH MCHC RDW Plt Count MPV Gran % Lymph % (Auto) [place] % (Auto) Eos % (Auto) Baso % (Auto) Gran # Lymph # (Auto) [place] # (Auto) Eos # (Auto) Baso # (Auto) Lupus Anticoagulant see note [place] PTT Screen 44 H dRVVT Mixing Study 37 dRVVT Mix Interpret Not indicated Protein C Activity Protein S Activity 85 Protein S Antigen 105 Sodium Potassium Chloride Carbon Dioxide Anion Gap BUN Creatinine Est GFR ( Amer) Est GFR (Non-Af Amer) POC Glucose (mg/dL) Random Glucose Calcium Phosphorus Magnesium Total Bilirubin AST ALT Alkaline Phosphatase Total Protein Albumin Globulin Albumin/Globulin Ratio Procalcitonin Urine RBC Urine WBC Ur Epithelial Cells Urine Bacteria 09/01/17 09/03/17 09/03/17 07:30 13:45 15:00 WBC RBC Hgb Hct MCV MCH MCHC RDW Plt Count MPV Gran % Lymph % (Auto) [place] % (Auto) Eos % (Auto) Baso % (Auto) Gran # Lymph # (Auto) [place] # (Auto) Eos # (Auto) Baso # (Auto) Lupus Anticoagulant [place] PTT Screen dRVVT Mixing Study dRVVT Mix Interpret Protein C Activity 84 Protein S Activity Protein S Antigen Sodium Potassium Chloride Carbon Dioxide Anion Gap BUN Creatinine Est GFR ( Amer) Est GFR (Non-Af Amer) POC Glucose (mg/dL) Random Glucose Calcium Phosphorus Magnesium Total Bilirubin AST ALT Alkaline Phosphatase Total Protein Albumin Globulin Albumin/Globulin Ratio Procalcitonin 0.31 Urine RBC 5 - 10 Urine WBC Tntc Ur Epithelial Cells 0 - 2 Urine Bacteria Many 09/03/17 09/03/17 09/04/17 16:09 21:11 06:10 WBC 17.8 H RBC 2.62 L Hgb 7.5 L Hct 23.2 L MCV 88.5 MCH 28.6 MCHC 32.3 RDW 14.4 Plt Count 326 MPV 10.3 Gran % 82.1 H Lymph % (Auto) 7.7 L [place] % (Auto) 9.3 H Eos % (Auto) 0.6 L Baso % (Auto) 0.3 Gran # 14.64 H Lymph # (Auto) 1.4 [place] # (Auto) 1.7 H Eos # (Auto) 0.1 Baso # (Auto) 0.06 Lupus Anticoagulant [place] PTT Screen dRVVT Mixing Study dRVVT Mix Interpret Protein C Activity Protein S Activity Protein S Antigen Sodium Potassium Chloride Carbon Dioxide Anion Gap BUN Creatinine Est GFR ( Amer) Est GFR (Non-Af Amer) POC Glucose (mg/dL) 239 H 256 H Random Glucose Calcium Phosphorus Magnesium Total Bilirubin AST ALT Alkaline Phosphatase Total Protein Albumin Globulin Albumin/Globulin Ratio Procalcitonin Urine RBC Urine WBC Ur Epithelial Cells Urine Bacteria 09/04/17 09/04/17 09/04/17 06:10 07:32 11:13 WBC RBC Hgb Hct MCV MCH MCHC RDW Plt Count MPV Gran % Lymph % (Auto) [place] % (Auto) Eos % (Auto) Baso % (Auto) Gran # Lymph # (Auto) [place] # (Auto) Eos # (Auto) Baso # (Auto) Lupus Anticoagulant [place] PTT Screen dRVVT Mixing Study dRVVT Mix Interpret Protein C Activity Protein S Activity Protein S Antigen Sodium 135 Potassium 4.7 Chloride 103 Carbon Dioxide 20 L Anion Gap 18 BUN 75 H Creatinine 5.7 H Est GFR ( Amer) 14 Est GFR (Non-Af Amer) 11 POC Glucose (mg/dL) 258 H 291 H Random Glucose 268 H Calcium 7.7 L Phosphorus 6.9 H Magnesium 2.3 H Total Bilirubin 0.4 AST 11 L ALT 13 Alkaline Phosphatase 91 Total Protein 5.9 Albumin 3.0 Globulin 2.8 Albumin/Globulin Ratio 1.1 Procalcitonin Urine RBC Urine WBC Ur Epithelial Cells Urine Bacteria Assessment & Plan - Assessment and Plan (Free Text) Assessment: 36 yo male with extensive past medical history of DM type 1 with neuropathy, Multiple CVA's, CKD, HTN, DKA, Anxiety presenting with bilateral vision changes , acute on chronic kidney disease, anemia, CAD/IN history, Extensive DM with peripheral neuropathy, CHF, and Neurogenic bladder. Patient with new onset leukocytosis up to 17.2. New upper back ulcerations as well. Started on Ceftriaxone for antibiotic care. Monitor wounds/ulcerations. May need IV Vancomycin. Awaiting wound culture. Leukocytosis remains persistent on 17.8 for today. Will switch Ceftriaxone to Cefepime. Thank you for allowing me to participate in the care of the patient, we will follow with you.
[2017-09-04] MEDS: Insulin Lispro (humaLOG) MEDIUM Coverage SC SCH (17:01)
[2017-09-04] MEDS: Povidone Iodine Topical 10% Sol TOP SCH (17:29)
--- NOTE | 2017-09-04 20:50 | PCM.URO ---
Urology Progress Note - Objective Lab Studies: Reviewed (full note to be dictated thanks for gu consult) Lab Results Last 24 Hours: Laboratory Results - last 24 hr 09/01/17 09/01/17 09/01/17 07:30 07:30 07:30 WBC RBC Hgb Hct MCV MCH MCHC RDW Plt Count MPV Gran % Lymph % (Auto) [place] % (Auto) Eos % (Auto) Baso % (Auto) Gran # Lymph # (Auto) [place] # (Auto) Eos # (Auto) Baso # (Auto) Lupus Anticoagulant see note [place] PTT Screen 44 H dRVVT Mixing Study 37 dRVVT Mix Interpret Not indicated Protein C Activity Protein S Activity 85 Protein S Antigen 105 Sodium Potassium Chloride Carbon Dioxide Anion Gap BUN Creatinine Est GFR ( Amer) Est GFR (Non-Af Amer) POC Glucose (mg/dL) Random Glucose Calcium Phosphorus Magnesium Total Bilirubin AST ALT Alkaline Phosphatase Total Protein Albumin Globulin Albumin/Globulin Ratio Procalcitonin 09/01/17 09/03/17 09/03/17 07:30 13:45 21:11 WBC RBC Hgb Hct MCV MCH MCHC RDW Plt Count MPV Gran % Lymph % (Auto) [place] % (Auto) Eos % (Auto) Baso % (Auto) Gran # Lymph # (Auto) [place] # (Auto) Eos # (Auto) Baso # (Auto) Lupus Anticoagulant [place] PTT Screen dRVVT Mixing Study dRVVT Mix Interpret Protein C Activity 84 Protein S Activity Protein S Antigen Sodium Potassium Chloride Carbon Dioxide Anion Gap BUN Creatinine Est GFR ( Amer) Est GFR (Non-Af Amer) POC Glucose (mg/dL) 256 H Random Glucose Calcium Phosphorus Magnesium Total Bilirubin AST ALT Alkaline Phosphatase Total Protein Albumin Globulin Albumin/Globulin Ratio Procalcitonin 0.31 09/04/17 09/04/17 09/04/17 06:10 06:10 07:32 WBC 17.8 H RBC 2.62 L Hgb 7.5 L Hct 23.2 L MCV 88.5 MCH 28.6 MCHC 32.3 RDW 14.4 Plt Count 326 MPV 10.3 Gran % 82.1 H Lymph % (Auto) 7.7 L [place] % (Auto) 9.3 H Eos % (Auto) 0.6 L Baso % (Auto) 0.3 Gran # 14.64 H Lymph # (Auto) 1.4 [place] # (Auto) 1.7 H Eos # (Auto) 0.1 Baso # (Auto) 0.06 Lupus Anticoagulant [place] PTT Screen dRVVT Mixing Study dRVVT Mix Interpret Protein C Activity Protein S Activity Protein S Antigen Sodium 135 Potassium 4.7 Chloride 103 Carbon Dioxide 20 L Anion Gap 18 BUN 75 H Creatinine 5.7 H Est GFR ( Amer) 14 Est GFR (Non-Af Amer) 11 POC Glucose (mg/dL) 258 H Random Glucose 268 H Calcium 7.7 L Phosphorus 6.9 H Magnesium 2.3 H Total Bilirubin 0.4 AST 11 L ALT 13 Alkaline Phosphatase 91 Total Protein 5.9 Albumin 3.0 Globulin 2.8 Albumin/Globulin Ratio 1.1 Procalcitonin 09/04/17 09/04/17 09/04/17 11:13 16:15 20:26 WBC RBC Hgb Hct MCV MCH MCHC RDW Plt Count MPV Gran % Lymph % (Auto) [place] % (Auto) Eos % (Auto) Baso % (Auto) Gran # Lymph # (Auto) [place] # (Auto) Eos # (Auto) Baso # (Auto) Lupus Anticoagulant [place] PTT Screen dRVVT Mixing Study dRVVT Mix Interpret Protein C Activity Protein S Activity Protein S Antigen Sodium Potassium Chloride Carbon Dioxide Anion Gap BUN Creatinine Est GFR ( Amer) Est GFR (Non-Af Amer) POC Glucose (mg/dL) 291 H 311 H 217 H Random Glucose Calcium Phosphorus Magnesium Total Bilirubin AST ALT Alkaline Phosphatase Total Protein Albumin Globulin Albumin/Globulin Ratio Procalcitonin Intake & Output: Intake & Output 09/04/17 09/04/17 09/05/17 06:59 18:59 06:59 Intake Total 540 720 Output Total 800 400 Balance -260 320 Weight 245 lb Intake: Oral 540 720 Output: Urine 800 400 Urethral (Lira) 500 400 Urine, Voided 300 Other: # Bowel Movements 0 1 Vital Signs: Vital Signs - 24 hr 09/03/17 09/03/17 09/04/17 21:45 22:00 02:00 Temperature Pulse Rate 83 84 79 Respiratory Rate Blood Pressure 122/61 O2 Sat by Pulse Oximetry 09/04/17 09/04/17 09/04/17 05:39 06:00 07:31 Temperature 97.9 F Pulse Rate 81 80 Respiratory 20 Rate Blood Pressure 164/82 H 164/82 H O2 Sat by Pulse 95 Oximetry 09/04/17 09/04/17 09/04/17 09:55 09:56 17:18 Temperature Pulse Rate Respiratory Rate Blood Pressure 148/93 H 148/93 H 150/75 O2 Sat by Pulse Oximetry 09/04/17 09/04/17 17:24 18:00 Temperature 98 F Pulse Rate 78 Respiratory 18 Rate Blood Pressure 150/75 150/75 O2 Sat by Pulse 94 L Oximetry
[2017-09-04] MEDS: Cefepime 1gm in NS 100ml 1 GM/100 ML BAG IVPB SCH (22:16)
[2017-09-05] MEDS: Levothyroxine 175 MCG TAB PO SCH (05:34)
[2017-09-05 06:30] LABS: BASO # 0.06 K/mm3 (0.0-2.0); BASO % 0.4 % (0.0-3.0); EOS # 0.3 (0.0-0.7); EOS % 2.1 % (1.5-5.0); GRAN # 12.25 (1.4-6.5); GRAN % 78.9 % (50.0-68.0); HEMOGLOBIN 7.3 g/dL (14.0-18.0); LYMPH # 1.6 (1.2-3.4); LYMPH % 10.2 % (22.0-35.0); MEAN CELL VOLUME 88.2 fl (80.0-105.0); MEAN CORPUSCULAR HEMOGLOBIN 28.6 pg (25.0-35.0); MEAN CORPUSCULAR HGB CONC 32.4 g/dl (31.0-37.0); MEAN PLATELET VOLUME 10.1 fl (7.0-11.0); MONO # 1.3 (0.1-0.6); MONO % 8.4 % (1.0-6.0); RBC 2.55 10^6/uL (3.5-6.1); RED CELL DISTRIBUTION WIDTH 14.3 % (11.5-14.5); WHITE BLOOD COUNT 15.5 10^3/ul (4.5-11.0)
[2017-09-05 06:36] LABS: CALCIUM 7.8 mg/dL (8.4-10.5)
--- NOTE | 2017-09-05 07:29 | CP.PCM.CON ---
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 Our service has been consulted for anemia and abnormal imaging of the rectum on CT scan. The patient has suffered with anemia dating back to 2013 with lab work c/w anemia of chronic illness. There has not been any evidence of overt GI bleeding. Looking back at the patients prior CT scans, he has had significant rectal distention and fecal burden dating back to October 2014 with multiple scans showing rectal thickening without any overt lesions. No prior endoscopic evaluations. He admits to severe constipation with only one bowel movement weekly. Denies sacral anesthesia. He does not use laxative therapy regularly. Denies any prior endoscopic evaluations. 12 system ROS performed and negative except where stated. PMHx: See HPI PSHx: bladder pacemaker FHx: DM, COPD and anxiety Social: Denies tobacco, EtOH or illicit drug use Endo: No prior endoscopic evaluation Past Patient History - Infectious Disease Hx of Infectious Diseases: None - Tetanus Immunizations Tetanus Immunization: Unknown - Past Medical History & Family History Past Medical History?: Yes - Past Social History Smoking Status: Never Smoked Alcohol: None Drugs: Denies - CARDIAC Hx Cardiac Disorders: Yes Hx Congestive Heart Failure: No Hx Heart Attack: Yes Hx Hypercholesterolemia: Yes Hx Hypertension: Yes - PULMONARY Hx Chronic Obstructive Pulmonary Disease (COPD): No - NEUROLOGICAL HX Cerebrovascular Accident: Yes (12/2013 Bilateral Lower extremities flaccid) - HEENT Hx HEENT Problems: Yes (wears glasses, recent vision loss due to cva) Hx Blind: No Hx Deafness: No Hx Difficulty Chewing: No Hx Epistaxis: No Hx Glaucoma: No - RENAL Hx Chronic Kidney Disease: Yes ("interstem, 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") Hx Pyelonephritis: Yes - ENDOCRINE/METABOLIC Hx Diabetes Mellitus Type 1: Yes (dx at age 10.) Hx Diabetes Mellitus Type 2: No Hx Hypothyroidism: Yes (synthroid) - HEMATOLOGICAL/ONCOLOGICAL Hx Blood Disorders: No Hx AIDS: No Hx Anemia: No Hx Cancer: No Hx Chemotherapy: No Hx Cirrhosis: No Hx Hemophilia: No Hx Hepatitis A: No Hx Hepatitis B: No Hx Hepatitis C: No Hx Human Immunodeficiency Virus (HIV): No Hx Metastesis: No Hx Shingles: No Hx Unexplained Bleeding: No - INTEGUMENTARY Hx Dermatological Problems: No Hx Basil Cell: No Hx Eczema: No Hx Melanoma: No Hx Psoriasis: No Hx Squamous Cell: No - MUSCULOSKELETAL/RHEUMATOLOGICAL Hx Falls: Yes Other/Comment: wheelchair bound - GASTROINTESTINAL Hx Gastrointestinal Disorders: Yes (colitis) - GENITOURINARY/GYNECOLOGICAL Hx Genitourinary Disorders: Yes (chronic indwelling lópez) Hx Incontinence: Yes Hx Urinary Tract Infection: Yes (multiple, MRSA) - PSYCHIATRIC Hx Psychophysiologic Disorder: Yes Hx Anxiety: Yes - SURGICAL HISTORY Hx Surgeries: Yes Hx Cardiac Catheterization: No Hx Coronary Stent: No Other/Comment: bladder surgery - ANESTHESIA Hx Anesthesia: Yes Hx Anesthesia Reactions: No Hx Malignant Hyperthermia: No Meds Allergies/Adverse Reactions: Allergies Allergy/AdvReac Type Severity Reaction Status Date / Time sulfamethoxazole Allergy ANAPHYLAXIS Verified 01/16/17 13:45 [From Bactrim] trimethoprim [From Bactrim] Allergy ANAPHYLAXIS Verified 01/16/17 13:45 - Medications Medications: Current Medications Amlodipine Besylate (Norvasc) 5 mg PO DAILY [facility] Last Admin: 09/04/17 09:55 Dose: 5 mg Aspirin (Ecotrin) 81 mg PO DAILY [facility] Last Admin: 09/04/17 09:52 Dose: 81 mg Atorvastatin Calcium (Lipitor) 20 mg PO DIN [facility] Last Admin: 09/04/17 17:23 Dose: 20 mg Calcium Acetate (Phoslo) 1,334 mg PO WM [facility] Last Admin: 09/04/17 17:23 Dose: 1,334 mg Clonidine HCl (Catapres-Tts3 0.3 Mg/24 Hr) 1 patch TD Q7D@1000 [facility] Docusate Sodium (Colace) 100 mg PO BID [facility] Last Admin: 09/04/17 17:20 Dose: 100 mg Ergocalciferol (Drisdol 50,000 Intl Units Cap) 1 cap PO Q7D [facility] Last Admin: 09/03/17 11:54 Dose: 1 cap Furosemide (Lasix) 40 mg PO DAILY [facility] Last Admin: 09/04/17 09:56 Dose: 40 mg Hydralazine HCl (Apresoline) 75 mg PO Q8 [facility] Last Admin: 09/05/17 05:34 Dose: 75 mg Iron Sucrose 200 mg/ Sodium (Chloride) 110 mls @ 110 mls/hr IVPB DAILY [facility] Stop: 09/07/17 10:01 Last Admin: 09/04/17 09:54 Dose: 110 mls/hr Cefepime HCl (Maxipime 1gm) 1 gm in 100 mls @ 100 mls/hr IVPB HS [facility] PRN Reason: Protocol Last Admin: 09/04/17 22:16 Dose: 100 mls/hr Insulin Detemir (Levemir) 25 unit SC Q12 [facility] Insulin Human Lispro (Humalog High) 0 units SC ACHS [facility] PRN Reason: Protocol Last Admin: 09/04/17 22:28 Dose: Not Given Isosorbide Dinitrate (Isordil) 20 mg PO BID [facility] Last Admin: 09/04/17 17:21 Dose: 20 mg Labetalol HCl (Trandate) 400 mg PO TID [facility] Last Admin: 09/04/17 17:24 Dose: 400 mg Lactulose (Enulose) 30 gm PO DAILY [facility] Last Admin: 09/04/17 10:03 Dose: Not Given Levothyroxine Sodium (Synthroid) 175 mcg PO 0600 [facility] Last Admin: 09/05/17 05:34 Dose: 175 mcg Ondansetron HCl (Zofran Inj) 4 mg IVP Q4H PRN PRN Reason: Nausea/Vomiting Last Admin: 09/04/17 18:54 Dose: 4 mg Oxycodone/Acetaminophen (Percocet 10/325 Mg Tab) 1 tab PO Q6H PRN PRN Reason: Pain, moderate (4-7) Last Admin: 08/31/17 22:27 Dose: 1 tab Polyethylene Glycol (Miralax) 17 gm PO BID [facility] Last Admin: 09/04/17 17:23 Dose: 17 gm Povidone Iodine (Betadine 10% Topical Soln) 0 ml TOP DAILY [facility] Last Admin: 09/04/17 17:29 Dose: 1 applic Tamsulosin HCl (Flomax) 0.4 mg PO DAILY [facility] Last Admin: 09/04/17 09:53 Dose: 0.4 mg Vitamin B Complex/Vit C/Folic Acid (Nephro-Devi) 1 tab PO 0800 [facility] Last Admin: 09/04/17 09:56 Dose: 1 tab Zolpidem Tartrate (Ambien) 5 mg PO HS PRN; Protocol PRN Reason: Insomnia Last Admin: 09/03/17 23:26 Dose: 5 mg Physical Exam - Constitutional Appears: No Acute Distress, Chronically Ill - Eye Exam Eye Exam: EOMI, PERRL - ENT Exam ENT Exam: Mucous Membranes Moist - Respiratory Exam Respiratory Exam: Clear to Auscultation Bilateral. absent: Rales, Rhonchi, Wheezes - Cardiovascular Exam Cardiovascular Exam: RRR, +S1, +S2 - GI/Abdominal Exam GI & Abdominal Exam: Normal Bowel Sounds, Soft. absent: Distended, Firm, Guarding, Hernia, Organomegaly, Rigid, Tenderness - Extremities Exam Additional comments: LE MS 1+/5 B/L; no edema noted - Neurological Exam Neurological exam: Alert, Oriented x3 - Psychiatric Exam Psychiatric exam: Normal Affect, Normal Mood - Skin Skin Exam: Dry, Warm Results - Vital Signs Recent Vital Signs: Last Vital Signs Temp 98 F 09/04/17 18:00 Pulse 76 09/05/17 06:00 Resp 18 09/04/17 18:00 BP 141/75 09/05/17 05:34 Pulse Ox 94 L 09/04/17 18:00 - Labs Result Diagrams: 09/05/17 06:00 09/05/17 06:00 Labs: Laboratory Results - last 24 hr 09/01/17 09/02/17 09/02/17 07:30 07:35 07:35 WBC RBC Hgb Hct MCV MCH MCHC RDW Plt Count MPV Gran % Lymph % (Auto) [place] % (Auto) Eos % (Auto) Baso % (Auto) Gran # Lymph # (Auto) [place] # (Auto) Eos # (Auto) Baso # (Auto) Protein S Antigen 105 Antithrombin III Ag 108 Antithrombin III Activ 118 Sodium Potassium Chloride Carbon Dioxide Anion Gap BUN Creatinine Est GFR ( Amer) Est GFR (Non-Af Amer) POC Glucose (mg/dL) Random Glucose Calcium Phosphorus Magnesium Total Bilirubin AST ALT Alkaline Phosphatase Total Protein Albumin Globulin Albumin/Globulin Ratio Blood Type Antibody Screen Crossmatch BBK History Checked 09/04/17 09/04/17 09/04/17 07:32 11:13 16:15 WBC RBC Hgb Hct MCV MCH MCHC RDW Plt Count MPV Gran % Lymph % (Auto) [place] % (Auto) Eos % (Auto) Baso % (Auto) Gran # Lymph # (Auto) [place] # (Auto) Eos # (Auto) Baso # (Auto) Protein S Antigen Antithrombin III Ag Antithrombin III Activ Sodium Potassium Chloride Carbon Dioxide Anion Gap BUN Creatinine Est GFR ( Amer) Est GFR (Non-Af Amer) POC Glucose (mg/dL) 258 H 291 H 311 H Random Glucose Calcium Phosphorus Magnesium Total Bilirubin AST ALT Alkaline Phosphatase Total Protein Albumin Globulin Albumin/Globulin Ratio Blood Type Antibody Screen Crossmatch BBK History Checked 09/04/17 09/04/17 09/05/17 20:26 22:27 05:40 WBC RBC Hgb Hct MCV MCH MCHC RDW Plt Count MPV Gran % Lymph % (Auto) [place] % (Auto) Eos % (Auto) Baso % (Auto) Gran # Lymph # (Auto) [place] # (Auto) Eos # (Auto) Baso # (Auto) Protein S Antigen Antithrombin III Ag Antithrombin III Activ Sodium Potassium Chloride Carbon Dioxide Anion Gap BUN Creatinine Est GFR ( Amer) Est GFR (Non-Af Amer) POC Glucose (mg/dL) 217 H 210 H 152 H Random Glucose Calcium Phosphorus Magnesium Total Bilirubin AST ALT Alkaline Phosphatase Total Protein Albumin Globulin Albumin/Globulin Ratio Blood Type Antibody Screen Crossmatch BBK History Checked 09/05/17 09/05/17 09/05/17 06:00 06:00 06:00 WBC 15.5 H RBC 2.55 L Hgb 7.3 L Hct 22.5 L MCV 88.2 MCH 28.6 MCHC 32.4 RDW 14.3 Plt Count 326 MPV 10.1 Gran % 78.9 H Lymph % (Auto) 10.2 L [place] % (Auto) 8.4 H Eos % (Auto) 2.1 Baso % (Auto) 0.4 Gran # 12.25 H Lymph # (Auto) 1.6 [place] # (Auto) 1.3 H Eos # (Auto) 0.3 Baso # (Auto) 0.06 Protein S Antigen Antithrombin III Ag Antithrombin III Activ Sodium 137 Potassium 4.4 Chloride 103 Carbon Dioxide 20 L Anion Gap 19 BUN 76 H Creatinine 6.2 H Est GFR ( Amer) 12 Est GFR (Non-Af Amer) 10 POC Glucose (mg/dL) Random Glucose 160 H Calcium 7.8 L Phosphorus 7.0 H Magnesium 2.5 H Total Bilirubin 0.5 AST 15 L D ALT 21 Alkaline Phosphatase 90 Total Protein 6.0 Albumin 3.0 Globulin 2.9 Albumin/Globulin Ratio 1.0 L Blood Type A POSITIVE Antibody Screen Negative Crossmatch See Detail BBK History Checked Patient has bt 09/05/17 07:13 WBC RBC Hgb Hct MCV MCH MCHC RDW Plt Count MPV Gran % Lymph % (Auto) [place] % (Auto) Eos % (Auto) Baso % (Auto) Gran # Lymph # (Auto) [place] # (Auto) Eos # (Auto) Baso # (Auto) Protein S Antigen Antithrombin III Ag Antithrombin III Activ Sodium Potassium Chloride Carbon Dioxide Anion Gap BUN Creatinine Est GFR ( Amer) Est GFR (Non-Af Amer) POC Glucose (mg/dL) 149 H Random Glucose Calcium Phosphorus Magnesium Total Bilirubin AST ALT Alkaline Phosphatase Total Protein Albumin Globulin Albumin/Globulin Ratio Blood Type Antibody Screen Crossmatch BBK History Checked Assessment & Plan - Assessment and Plan (Free Text) Assessment: Patient is a 36yo male with PMHx significant for 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 Factor V Leiden thrombophilia with residual deficits in the lower extremities, neurogenic bladder, on dual antiplatelet therapy, chronic indwelling lópez catheter, CKD, type 1 DM with prior episodes of DKA, anemia of chronic illness who presented to the ED with complaint of vision changes and concern for TIA -TIA -Anemia of chronic illness -Rectal thickening on CT imaging -Constipation Plan: -The risks of holding antiplatelet and anticoagulant therapy outweight benefits of possible endoscopic evaluation right now given recent events and multiple TIA /CVA in the past -No evidence of overt GI bleeding - has history of CKD and anemia of chonic illness compatible with Iron studies (Iron WNL, low TIBC) -Significant stool burden noted on multiple CT - can be etiology of rectal thickening -Recommend continuation of ASA/Plavix and agree with initiation of Eliquis -The patient will benefit from Colonoscopy once evaluation can be safely performed off of anticoagulation/antiplatelet therapy -Decreasing fecal burden will also improve visability and change of having more successful examination with colonoscopy -Recommend aggressive bowel regimen with tap water enemas every 2-3 hours along with Dulcolax suppository and Miralax BID as ordered -Case discussed with primary medical service -Will require close outpatient follow up - Date & Time Date: 09/05/17 Time: 09:45 <Shan Martell - Last Filed: 09/05/17 13:01> Meds - Medications Medications: Current Medications Amlodipine Besylate (Norvasc) 5 mg PO DAILY [facility] Last Admin: 09/05/17 10:39 Dose: 5 mg Aspirin (Ecotrin) 81 mg PO DAILY [facility] Last Admin: 09/05/17 10:39 Dose: 81 mg Atorvastatin Calcium (Lipitor) 20 mg PO DIN [facility] Last Admin: 09/04/17 17:23 Dose: 20 mg Calcium Acetate (Phoslo) 1,334 mg PO WM [facility] Last Admin: 09/05/17 08:39 Dose: Not Given Clonidine HCl (Catapres-Tts3 0.3 Mg/24 Hr) 1 patch TD Q7D@1000 [facility] Docusate Sodium (Colace) 100 mg PO BID [facility] Last Admin: 09/05/17 10:40 Dose: 100 mg Ergocalciferol (Drisdol 50,000 Intl Units Cap) 1 cap PO Q7D [facility] Last Admin: 09/03/17 11:54 Dose: 1 cap Furosemide (Lasix) 40 mg PO DAILY [facility] Last Admin: 09/05/17 10:40 Dose: 40 mg Hydralazine HCl (Apresoline) 75 mg PO Q8 [facility] Last Admin: 09/05/17 05:34 Dose: 75 mg Iron Sucrose 200 mg/ Sodium (Chloride) 110 mls @ 110 mls/hr IVPB DAILY [facility] Stop: 09/07/17 10:01 Last Admin: 09/05/17 11:00 Dose: 110 mls/hr Cefepime HCl (Maxipime 1gm) 1 gm in 100 mls @ 100 mls/hr IVPB HS [facility] PRN Reason: Protocol Last Admin: 09/04/17 22:16 Dose: 100 mls/hr Heparin Sodium/Sodium Chloride (Heparin 99021 Units/250ml 1/2 Normal Saline) 25 ,000 units in 250 mls @ 20.003 mls/hr IV .[id number] PRN; Protocol; 18 UNITS/KG/HR PRN Reason: ADJUST RATE PER PROTOCOL Last Admin: 09/05/17 12:05 Dose: 18 units/kg/hr, 20.003 mls/hr Insulin Detemir (Levemir) 25 unit SC Q12 [facility] Last Admin: 09/05/17 10:40 Dose: 25 units Insulin Human Lispro (Humalog High) 0 units SC ACHS [facility] PRN Reason: Protocol Last Admin: 09/05/17 08:28 Dose: Not Given Isosorbide Dinitrate (Isordil) 20 mg PO BID [facility] Last Admin: 09/05/17 10:40 Dose: 20 mg Labetalol HCl (Trandate) 400 mg PO TID [facility] Last Admin: 09/05/17 11:08 Dose: 400 mg Lactulose (Enulose) 30 gm PO DAILY [facility] Last Admin: 09/05/17 10:41 Dose: 30 gm Levothyroxine Sodium (Synthroid) 175 mcg PO 0600 [facility] Last Admin: 09/05/17 05:34 Dose: 175 mcg Ondansetron HCl (Zofran Inj) 4 mg IVP Q4H PRN PRN Reason: Nausea/Vomiting Last Admin: 09/04/17 18:54 Dose: 4 mg Polyethylene Glycol (Miralax) 17 gm PO BID [facility] Last Admin: 09/05/17 10:42 Dose: 17 gm Povidone Iodine (Betadine 10% Topical Soln) 0 ml TOP DAILY [facility] Last Admin: 09/04/17 17:29 Dose: 1 applic Tamsulosin HCl (Flomax) 0.4 mg PO DAILY [facility] Last Admin: 09/05/17 10:39 Dose: 0.4 mg Vitamin B Complex/Vit C/Folic Acid (Nephro-Devi) 1 tab PO 0800 [facility] Last Admin: 09/05/17 08:46 Dose: Not Given Zolpidem Tartrate (Ambien) 5 mg PO HS PRN; Protocol PRN Reason: Insomnia Last Admin: 09/03/17 23:26 Dose: 5 mg Results - Vital Signs Recent Vital Signs: Last Vital Signs Temp 98.4 F 09/05/17 12:35 Pulse 70 09/05/17 12:35 Resp 18 09/05/17 12:35 BP 129/68 09/05/17 12:35 Pulse Ox 94 L 09/04/17 18:00 - Labs Result Diagrams: 09/05/17 06:00 09/05/17 06:00 Labs: Laboratory Results - last 24 hr 09/01/17 09/02/17 09/02/17 07:30 07:35 07:35 WBC RBC Hgb Hct MCV MCH MCHC RDW Plt Count MPV Gran % Lymph % (Auto) [place] % (Auto) Eos % (Auto) Baso % (Auto) Gran # Lymph # (Auto) [place] # (Auto) Eos # (Auto) Baso # (Auto) Protein S Antigen 105 Antithrombin III Ag 108 Antithrombin III Activ 118 Sodium Potassium Chloride Carbon Dioxide Anion Gap BUN Creatinine Est GFR ( Amer) Est GFR (Non-Af Amer) POC Glucose (mg/dL) Random Glucose Calcium Phosphorus Magnesium Total Bilirubin AST ALT Alkaline Phosphatase Total Protein Albumin Globulin Albumin/Globulin Ratio Blood Type Antibody Screen Crossmatch BBK History Checked 09/04/17 09/04/17 09/04/17 16:15 20:26 22:27 WBC RBC Hgb Hct MCV MCH MCHC RDW Plt Count MPV Gran % Lymph % (Auto) [place] % (Auto) Eos % (Auto) Baso % (Auto) Gran # Lymph # (Auto) [place] # (Auto) Eos # (Auto) Baso # (Auto) Protein S Antigen Antithrombin III Ag Antithrombin III Activ Sodium Potassium Chloride Carbon Dioxide Anion Gap BUN Creatinine Est GFR ( Amer) Est GFR (Non-Af Amer) POC Glucose (mg/dL) 311 H 217 H 210 H Random Glucose Calcium Phosphorus Magnesium Total Bilirubin AST ALT Alkaline Phosphatase Total Protein Albumin Globulin Albumin/Globulin Ratio Blood Type Antibody Screen Crossmatch BBK History Checked 09/05/17 09/05/17 09/05/17 05:40 06:00 06:00 WBC 15.5 H RBC 2.55 L Hgb 7.3 L Hct 22.5 L MCV 88.2 MCH 28.6 MCHC 32.4 RDW 14.3 Plt Count 326 MPV 10.1 Gran % 78.9 H Lymph % (Auto) 10.2 L [place] % (Auto) 8.4 H Eos % (Auto) 2.1 Baso % (Auto) 0.4 Gran # 12.25 H Lymph # (Auto) 1.6 [place] # (Auto) 1.3 H Eos # (Auto) 0.3 Baso # (Auto) 0.06 Protein S Antigen Antithrombin III Ag Antithrombin III Activ Sodium 137 Potassium 4.4 Chloride 103 Carbon Dioxide 20 L Anion Gap 19 BUN 76 H Creatinine 6.2 H Est GFR ( Amer) 12 Est GFR (Non-Af Amer) 10 POC Glucose (mg/dL) 152 H Random Glucose 160 H Calcium 7.8 L Phosphorus 7.0 H Magnesium 2.5 H Total Bilirubin 0.5 AST 15 L D ALT 21 Alkaline Phosphatase 90 Total Protein 6.0 Albumin 3.0 Globulin 2.9 Albumin/Globulin Ratio 1.0 L Blood Type Antibody Screen Crossmatch BBK History Checked 09/05/17 09/05/17 09/05/17 06:00 07:13 11:16 WBC RBC Hgb Hct MCV MCH MCHC RDW Plt Count MPV Gran % Lymph % (Auto) [place] % (Auto) Eos % (Auto) Baso % (Auto) Gran # Lymph # (Auto) [place] # (Auto) Eos # (Auto) Baso # (Auto) Protein S Antigen Antithrombin III Ag Antithrombin III Activ Sodium Potassium Chloride Carbon Dioxide Anion Gap BUN Creatinine Est GFR ( Amer) Est GFR (Non-Af Amer) POC Glucose (mg/dL) 149 H 183 H Random Glucose Calcium Phosphorus Magnesium Total Bilirubin AST ALT Alkaline Phosphatase Total Protein Albumin Globulin Albumin/Globulin Ratio Blood Type A POSITIVE Antibody Screen Negative Crossmatch See Detail BBK History Checked Patient has bt Attending/Attestation - Attestation I have personally seen and examined this patient.: Yes I have fully participated in the care of the patient.: Yes I have reviewed all pertinent clinical information: Yes Notes (Text): 09/05/17 12:56 This is a 36 year old male with PMHx significant for multiple CVA's suspected 2/ 2 Factor V Leiden thrombophilia with residual deficits in the lower extremities , neurogenic bladder, on dual antiplatelet therapy, chronic indwelling lópez catheter, CKD, type 1 DM with prior episodes of DKA, anemia of chronic illness who presented to the ED with complaint of vision changes and concern for TIA. He wsa also found to have imaging of rectal thickening with significant stool in the colon. Will give stool softeners and laxatives. No weight loss. Discussed the importance of getting outpatient full colonoscopy after acute issues have resolved. He can be given dual anti platelet and anticoagulant if indicated for his neurological issues. Discussed in detail with Dr Dwyer. Recommend continuation of ASA/Plavix and agree with initiation of Eliquis. Will require close outpatient follow up. Will sign off now.
[2017-09-05] MEDS: Insulin Lispro (HUMAlog) HIGH Coverage SC SCH ×4 (08:28→22:43)
--- NOTE | 2017-09-05 08:45 | CT ---
EXAM: CT Head Without Intravenous Contrast CLINICAL HISTORY: 36 years old, male; Signs and symptoms; Visual disturbance; Additional info: Acute change in vision TECHNIQUE: Axial computed tomography images of the head/brain without intravenous contrast. All CT scans at this facility use at least one of these dose optimization techniques: automated exposure control; mA and/or kV adjustment per patient size (includes targeted exams where dose is matched to clinical indication); or iterative reconstruction. Coronal and sagittal reformatted images were created and reviewed. COMPARISON: CT - HEAD W/O CONTRAST 2017-08-30 14:45 FINDINGS: Brain: Examination of the brain demonstrates normal structure and attenuation.The cortical chan / white matter interfaces are preserved throughout the brain.No acute infarction, masses or hemorrhage is seen. No acute intracranial abnormality is identified.There is no hyperdense MCA sign. Examination of the posterior fossa demonstrates no significant abnormality. Ventricles: The ventricular system is not dilated and is appropriate for the patient's age. Bones/joints: The bony orbital thompson are intact. No fractures are identified. Soft tissues: Unremarkable. Sinuses: Unremarkable as visualized. No acute sinusitis. Mastoid air cells: Unremarkable as visualized. No mastoid effusion. Orbits: Examination reveals bilateral globes to be normal in size and morphology. The optic nerves are normal in thickness and symmetric bilaterally. The extraocular muscles are normal in thickness and signal intensity. The retroconal fat has a normal appearance. The lacrimal glands appear normal bilaterally. IMPRESSION: No acute infarction, masses or hemorrhage is seen. No acute intracranial abnormality is identified. There has been no adverse interval change since the previous study. If there are persistent symptoms, MRI may be considered for further evaluation.
[2017-09-05] MEDS: Multivitamin Vitamin B Complex (Nephro-Vite) Tab PO SCH (08:46)
--- NOTE | 2017-09-05 08:54 | CP.PCM.PN ---
Subjective - Date & Time of Evaluation Date of Evaluation: 09/05/17 Time of Evaluation: 07:47 - Subjective Subjective: Doron Aleman PGY1 Surgery Progress Note for Dr. Walker Patient was seen and examined at bedside. He is complaining of abdominal, right groin and right testicular pain. He denies fevers/chills, nausea/ vomiting. Patient stated that he had 2 bowel movements overnight. Objective - Vital Signs/Intake and Output Vital Signs (last 24 hours): Temp Pulse Resp BP Pulse Ox 98 F 76 18 141/75 94 L 09/04/17 18:00 09/05/17 06:00 09/04/17 18:00 09/05/17 05:34 09/04/17 18:00 Intake and Output: 09/05/17 09/05/17 06:59 18:59 Intake Total 1440 Output Total 525 Balance 915 - Medications Medications: Current Medications Amlodipine Besylate (Norvasc) 5 mg PO DAILY [facility] Last Admin: 09/04/17 09:55 Dose: 5 mg Aspirin (Ecotrin) 81 mg PO DAILY [facility] Last Admin: 09/04/17 09:52 Dose: 81 mg Atorvastatin Calcium (Lipitor) 20 mg PO DIN [facility] Last Admin: 09/04/17 17:23 Dose: 20 mg Calcium Acetate (Phoslo) 1,334 mg PO WM [facility] Last Admin: 09/05/17 08:39 Dose: Not Given Clonidine HCl (Catapres-Tts3 0.3 Mg/24 Hr) 1 patch TD Q7D@1000 [facility] Docusate Sodium (Colace) 100 mg PO BID [facility] Last Admin: 09/04/17 17:20 Dose: 100 mg Ergocalciferol (Drisdol 50,000 Intl Units Cap) 1 cap PO Q7D [facility] Last Admin: 09/03/17 11:54 Dose: 1 cap Furosemide (Lasix) 40 mg PO DAILY [facility] Last Admin: 09/04/17 09:56 Dose: 40 mg Hydralazine HCl (Apresoline) 75 mg PO Q8 [facility] Last Admin: 09/05/17 05:34 Dose: 75 mg Iron Sucrose 200 mg/ Sodium (Chloride) 110 mls @ 110 mls/hr IVPB DAILY [facility] Stop: 09/07/17 10:01 Last Admin: 09/04/17 09:54 Dose: 110 mls/hr Cefepime HCl (Maxipime 1gm) 1 gm in 100 mls @ 100 mls/hr IVPB HS [facility] PRN Reason: Protocol Last Admin: 09/04/17 22:16 Dose: 100 mls/hr Insulin Detemir (Levemir) 25 unit SC Q12 [facility] Insulin Human Lispro (Humalog High) 0 units SC ACHS [facility] PRN Reason: Protocol Last Admin: 09/05/17 08:28 Dose: Not Given Isosorbide Dinitrate (Isordil) 20 mg PO BID [facility] Last Admin: 09/04/17 17:21 Dose: 20 mg Labetalol HCl (Trandate) 400 mg PO TID [facility] Last Admin: 09/04/17 17:24 Dose: 400 mg Lactulose (Enulose) 30 gm PO DAILY [facility] Last Admin: 09/04/17 10:03 Dose: Not Given Levothyroxine Sodium (Synthroid) 175 mcg PO 0600 [facility] Last Admin: 09/05/17 05:34 Dose: 175 mcg Ondansetron HCl (Zofran Inj) 4 mg IVP Q4H PRN PRN Reason: Nausea/Vomiting Last Admin: 09/04/17 18:54 Dose: 4 mg Oxycodone/Acetaminophen (Percocet 10/325 Mg Tab) 1 tab PO Q6H PRN PRN Reason: Pain, moderate (4-7) Last Admin: 08/31/17 22:27 Dose: 1 tab Polyethylene Glycol (Miralax) 17 gm PO BID [facility] Last Admin: 09/04/17 17:23 Dose: 17 gm Povidone Iodine (Betadine 10% Topical Soln) 0 ml TOP DAILY [facility] Last Admin: 09/04/17 17:29 Dose: 1 applic Tamsulosin HCl (Flomax) 0.4 mg PO DAILY [facility] Last Admin: 09/04/17 09:53 Dose: 0.4 mg Vitamin B Complex/Vit C/Folic Acid (Nephro-Devi) 1 tab PO 0800 [facility] Last Admin: 09/05/17 08:46 Dose: Not Given Zolpidem Tartrate (Ambien) 5 mg PO HS PRN; Protocol PRN Reason: Insomnia Last Admin: 09/03/17 23:26 Dose: 5 mg - Labs Labs: 09/05/17 06:00 09/05/17 06:00 PT 11.4 SECONDS (9.4-12.5) 08/30/17 12:53 INR 0.99 (0.93-1.08) 08/30/17 12:53 APTT 26.0 Seconds (25.1-36.5) 08/30/17 12:53 - Additional Findings Additional findings: - Constitutional Appears: Well, Non-toxic, No Acute Distress - Head Exam Head Exam: NORMAL INSPECTION - Eye Exam Eye Exam: Normal appearance - ENT Exam ENT Exam: Mucous Membranes Moist - Neck Exam Neck exam: Positive for: Normal Inspection - Respiratory Exam Respiratory Exam: NORMAL BREATHING PATTERN. absent: Respiratory Distress - Cardiovascular Exam Cardiovascular Exam: RRR - GI/Abdominal Exam GI & Abdominal Exam: Soft. absent: Distended, Tenderness - Exam Additional comments: chronic indwelling lópez catheter draining yellow clear urine scrotum swollen and tender on R - Extremities Exam Extremities exam: Negative for: full ROM (b/l flaccid LE paralysis; full ROM UE b/l) - Back Exam Back exam: NORMAL INSPECTION - Neurological Exam Neurological exam: Alert - Psychiatric Exam Psychiatric exam: Normal Mood - Skin Additional comments: left buttox 1cm lesion with endurated margins; not able to express purulent fluid Assessment & Plan - Assessment and Plan (Free Text) Assessment: 36-year-old male with a past medical history of DM 1 and extensive associated comorbidities who presents for changes in vision; CVA/TIA ruled out. General surgery was consulted for a left buttocks lesion overlying the site of placement of a urinary bladder stimulator. Given the recurrent nature of the lesion, this could be a result of an underlying infection in the stimulator, which would require removal. CT of pelvis was done and showed no abscess, but possible proctitis, and it was recommended to rule out neoplasm of the rectal wall. Plan: Duplex U/S scrotum to evaluate swelling and r/o torsion Urology consulted for evaluation of urinary bladder stimulator; might require removal by Dr. Lechuga as he placed it GI consulted to r/o neoplasm, f/u GI recs Continue antibiotics per ID Wound culture growing gram negative rods Urine culture growing gram negative rods; history of MRSA in urine Wound care nurse following, recommend daily dressing change and packing w/ medihoney and covering with optifoam Strict glycemic control Further recs per attending Case was reviewed and discussed with Dr. Walker
--- NOTE | 2017-09-05 09:57 | CP.PCM.PN ---
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 Starting to have ? signs of early uremia - ? n/v related to uremia. Had long discussion w/ him and gf re: possibly need to start dialysis rather soon in next day or so if no significant improvement and they are discussing. will requie txf to [facility] if thats the case bp control w/ meds as ordered continue with iron supplements. MVI and dose of aransep 60 mcg on 08/31/17 continue with statins continue with phos binders on weekly Vit D infectious work up as primary team and ID - reviewed ID note S: seen nd examiend complains of some naussea and episode of emesis yesterday when he was given lactulose Physical Examination: General Appearance: Comfortable, in no acute respiratory distress, co- operative. obese Vitals reviewed and noted as below Head; Atraumatic, normocephalic ENT: no ulcers no thrush. Tongue is midline. Oropharynx: no rash or ulcers. EYES: Pupils are equal, round and reactive to light accommodation. Eye muscles and extraocular movement intact. Sclera is anicteric. has vision impaired Neck; supple no lymphadenopathy, no thyromegaly or bruit Lungs: Normal respiratory rate/effort. Breath sounds clear and bilateral equal Heart: Normal rate. s1s2 normal. No rub or gallop. Extremities: 1+ edema. No varicose veins Neurological: Patient is alert, awake and oriented x 3 chronic leg paresis Skin: dry and warm. Normal turgor. No rash. Palpitation: Normal elasticity for age Abdomen: Abdomen is soft. Bowel sounds +. There is no abdominal tenderness, no guarding/rigidity or organomegaly Psych: normal insight. normal affect MSK: no specific joint tenderness or swelling. Digits and nails normal, no deformity : kidney or bladder not palpable. has lópez catheter Labs/imaging/EKG reviewed. Past medical history, past surgical history, social history, allergy reviewed and noted as below Family hx; no hx of CKD. non contributory Objective - Vital Signs/Intake and Output Vital Signs (last 24 hours): Temp Pulse Resp BP Pulse Ox 98 F 76 18 141/75 94 L 09/04/17 18:00 09/05/17 06:00 09/04/17 18:00 09/05/17 05:34 09/04/17 18:00 Intake and Output: 09/05/17 09/05/17 06:59 18:59 Intake Total 1440 Output Total 525 Balance 915 - Medications Medications: Current Medications Amlodipine Besylate (Norvasc) 5 mg PO DAILY [facility] Last Admin: 09/04/17 09:55 Dose: 5 mg Apixaban (Eliquis) 2.5 mg PO BID [facility] PRN Reason: Protocol Aspirin (Ecotrin) 81 mg PO DAILY [facility] Last Admin: 09/04/17 09:52 Dose: 81 mg Atorvastatin Calcium (Lipitor) 20 mg PO DIN [facility] Last Admin: 09/04/17 17:23 Dose: 20 mg Calcium Acetate (Phoslo) 1,334 mg PO WM [facility] Last Admin: 09/05/17 08:39 Dose: Not Given Clonidine HCl (Catapres-Tts3 0.3 Mg/24 Hr) 1 patch TD Q7D@1000 [facility] Docusate Sodium (Colace) 100 mg PO BID [facility] Last Admin: 09/04/17 17:20 Dose: 100 mg Ergocalciferol (Drisdol 50,000 Intl Units Cap) 1 cap PO Q7D [facility] Last Admin: 09/03/17 11:54 Dose: 1 cap Furosemide (Lasix) 40 mg PO DAILY [facility] Last Admin: 09/04/17 09:56 Dose: 40 mg Hydralazine HCl (Apresoline) 75 mg PO Q8 [facility] Last Admin: 09/05/17 05:34 Dose: 75 mg Iron Sucrose 200 mg/ Sodium (Chloride) 110 mls @ 110 mls/hr IVPB DAILY [facility] Stop: 09/07/17 10:01 Last Admin: 09/04/17 09:54 Dose: 110 mls/hr Cefepime HCl (Maxipime 1gm) 1 gm in 100 mls @ 100 mls/hr IVPB [facility] PRN Reason: Protocol Last Admin: 09/04/17 22:16 Dose: 100 mls/hr Insulin Detemir (Levemir) 25 unit SC Q12 [facility] Insulin Human Lispro (Humalog High) 0 units SC ACHS [facility] PRN Reason: Protocol Last Admin: 09/05/17 08:28 Dose: Not Given Isosorbide Dinitrate (Isordil) 20 mg PO BID [facility] Last Admin: 09/04/17 17:21 Dose: 20 mg Labetalol HCl (Trandate) 400 mg PO TID [facility] Last Admin: 09/04/17 17:24 Dose: 400 mg Lactulose (Enulose) 30 gm PO DAILY [facility] Last Admin: 09/04/17 10:03 Dose: Not Given Levothyroxine Sodium (Synthroid) 175 mcg PO 0600 [facility] Last Admin: 09/05/17 05:34 Dose: 175 mcg Ondansetron HCl (Zofran Inj) 4 mg IVP Q4H PRN PRN Reason: Nausea/Vomiting Last Admin: 09/04/17 18:54 Dose: 4 mg Oxycodone/Acetaminophen (Percocet 10/325 Mg Tab) 1 tab PO Q6H PRN PRN Reason: Pain, moderate (4-7) Last Admin: 08/31/17 22:27 Dose: 1 tab Polyethylene Glycol (Miralax) 17 gm PO BID [facility] Last Admin: 09/04/17 17:23 Dose: 17 gm Povidone Iodine (Betadine 10% Topical Soln) 0 ml TOP DAILY [facility] Last Admin: 09/04/17 17:29 Dose: 1 applic Tamsulosin HCl (Flomax) 0.4 mg PO DAILY [facility] Last Admin: 09/04/17 09:53 Dose: 0.4 mg Vitamin B Complex/Vit C/Folic Acid (Nephro-Devi) 1 tab PO 0800 [facility] Last Admin: 09/05/17 08:46 Dose: Not Given Zolpidem Tartrate (Ambien) 5 mg PO HS PRN; Protocol PRN Reason: Insomnia Last Admin: 09/03/17 23:26 Dose: 5 mg - Labs Labs: 09/05/17 06:00 09/05/17 06:00 PT 11.4 SECONDS (9.4-12.5) 08/30/17 12:53 INR 0.99 (0.93-1.08) 08/30/17 12:53 APTT 26.0 Seconds (25.1-36.5) 08/30/17 12:53
--- NOTE | 2017-09-05 10:26 | CP.PCM.PN ---
<Demetria Headley - Last Filed: 09/05/17 14:49> Subjective - Date & Time of Evaluation Date of Evaluation: 09/05/17 Time of Evaluation: 10:25 - Subjective Subjective: Internal Medicine Progress Note - Hospitalist Service Patient seen and examined at bedside. Patient was complaining about visual cloudiness, repeat CT head showed no changes. Vision has improved. Patient hgb 7.5 - 7.3 this morning, will transfuse 1 units of PRBCs today. Renal function continues to slowly worsen, patient may need dialysis. He admits to feeling nauseous, but denies vomiting. Objective - Vital Signs/Intake and Output Vital Signs (last 24 hours): Temp Pulse Resp BP Pulse Ox 98 F 76 18 141/75 94 L 09/04/17 18:00 09/05/17 06:00 09/04/17 18:00 09/05/17 05:34 09/04/17 18:00 Intake and Output: 09/05/17 09/05/17 06:59 18:59 Intake Total 1440 Output Total 525 Balance 915 - Medications Medications: Current Medications Amlodipine Besylate (Norvasc) 5 mg PO DAILY [facility] Last Admin: 09/04/17 09:55 Dose: 5 mg Apixaban (Eliquis) 2.5 mg PO BID [facility] PRN Reason: Protocol Last Admin: 09/05/17 10:23 Dose: Not Given Aspirin (Ecotrin) 81 mg PO DAILY [facility] Last Admin: 09/04/17 09:52 Dose: 81 mg Atorvastatin Calcium (Lipitor) 20 mg PO DIN [facility] Last Admin: 09/04/17 17:23 Dose: 20 mg Calcium Acetate (Phoslo) 1,334 mg PO WM [facility] Last Admin: 09/05/17 08:39 Dose: Not Given Clonidine HCl (Catapres-Tts3 0.3 Mg/24 Hr) 1 patch TD Q7D@1000 [facility] Docusate Sodium (Colace) 100 mg PO BID [facility] Last Admin: 09/04/17 17:20 Dose: 100 mg Ergocalciferol (Drisdol 50,000 Intl Units Cap) 1 cap PO Q7D [facility] Last Admin: 09/03/17 11:54 Dose: 1 cap Furosemide (Lasix) 40 mg PO DAILY [facility] Last Admin: 09/04/17 09:56 Dose: 40 mg Hydralazine HCl (Apresoline) 75 mg PO Q8 [facility] Last Admin: 09/05/17 05:34 Dose: 75 mg Iron Sucrose 200 mg/ Sodium (Chloride) 110 mls @ 110 mls/hr IVPB DAILY [facility] Stop: 09/07/17 10:01 Last Admin: 09/04/17 09:54 Dose: 110 mls/hr Cefepime HCl (Maxipime 1gm) 1 gm in 100 mls @ 100 mls/hr IVPB [facility] PRN Reason: Protocol Last Admin: 09/04/17 22:16 Dose: 100 mls/hr Insulin Detemir (Levemir) 25 unit SC Q12 [facility] Insulin Human Lispro (Humalog High) 0 units SC ACHS [facility] PRN Reason: Protocol Last Admin: 09/05/17 08:28 Dose: Not Given Isosorbide Dinitrate (Isordil) 20 mg PO BID [facility] Last Admin: 09/04/17 17:21 Dose: 20 mg Labetalol HCl (Trandate) 400 mg PO TID [facility] Last Admin: 09/04/17 17:24 Dose: 400 mg Lactulose (Enulose) 30 gm PO DAILY [facility] Last Admin: 09/04/17 10:03 Dose: Not Given Levothyroxine Sodium (Synthroid) 175 mcg PO 0600 [facility] Last Admin: 09/05/17 05:34 Dose: 175 mcg Ondansetron HCl (Zofran Inj) 4 mg IVP Q4H PRN PRN Reason: Nausea/Vomiting Last Admin: 09/04/17 18:54 Dose: 4 mg Oxycodone/Acetaminophen (Percocet 10/325 Mg Tab) 1 tab PO Q6H PRN PRN Reason: Pain, moderate (4-7) Last Admin: 08/31/17 22:27 Dose: 1 tab Polyethylene Glycol (Miralax) 17 gm PO BID [facility] Last Admin: 09/04/17 17:23 Dose: 17 gm Povidone Iodine (Betadine 10% Topical Soln) 0 ml TOP DAILY [facility] Last Admin: 09/04/17 17:29 Dose: 1 applic Tamsulosin HCl (Flomax) 0.4 mg PO DAILY [facility] Last Admin: 09/04/17 09:53 Dose: 0.4 mg Vitamin B Complex/Vit C/Folic Acid (Nephro-Devi) 1 tab PO 0800 [facility] Last Admin: 09/05/17 08:46 Dose: Not Given Zolpidem Tartrate (Ambien) 5 mg PO HS PRN; Protocol PRN Reason: Insomnia Last Admin: 09/03/17 23:26 Dose: 5 mg - Labs Labs: 09/05/17 06:00 09/05/17 06:00 PT 11.4 SECONDS (9.4-12.5) 08/30/17 12:53 INR 0.99 (0.93-1.08) 08/30/17 12:53 APTT 26.0 Seconds (25.1-36.5) 08/30/17 12:53 Assessment and Plan - Assessment and Plan (Free Text) Assessment: A/P: Patient is a 36 year old male with past medical history of mulitple CVA's, DM, CKD, presents to the ED for right eye vision loss, found to have elevated Cr , anemia: US of LE negative Right eye visual changes -Stable, afebrile -Patient had a history of multiple CVAs in the past -CT head: negative for ischemia/hemorrhage -Repeat CT head 09/04 was unchanged from prior study -Carotid US showed bilateral 0-19 percent proximal ICA stenosis, antegrade flow in both vertebral arteries -MRI brain could not be done due to presence of bladder pacemaker -Echo with bubble study mild concentric LV hypertrophy, normal EF, trace to mild MR -Continue Aspirin, Lipitor, Plavix discontinued -Neurology on consult, help appreciated -Pt's Ophthalmology Dr Matthews consulted, recommended primarily outpatient follow up -Physical Therapy recommends subacute rehab Factor V Leiden Mutation -Heterozygous mutation -Heme/Onc recommending therapeutic anticoagulation, plan was to start Eliquis 2.5mg PO BID -Will start Heparin Drip at this time, patient may need HD catheter placement if renal function continues to decline -Stool for occult blood negative Leukocytosis -Patient with white count improving 17.8 - 15.5 -Antiobiotics: Cefepime 1gm HS -Patient with lumbar wound -Wound culture showing pseudomonas aueriginosa (sensitivities reviewed) -Urine culture showing gram negative rods, sensitivities pending -ID on consult, help appreciated Lumbar wound -Wound culture showing pseudomonas aueriginosa (sensitivities reviewed) -Antibiotics: Cefepime 1gm HS (to complete 10 days) -Lumbar CT showed no acute fracture, no spondylolysis or spondylolithesis, no evidence of osteomyelitis; mild multilevel degenerative disc disease without spinal stenosis; neurostimulator lead through the left S4 neural foraminal. -Pelvic CT showed no abscess, possible proctitis, rule out neoplasm of the rectal wall -Wound care on consult -General surgery consulted for possible I+D, help appreciated Rectal Wall thickening -Stool occult negative -GI recommending outpatient colonoscopy/EGD, patient to follow up with Dr Martell -GI on consult, help appreciated Normocytic Anemia -Multifactorial anemia of chronic disease (ACD) and iron deficiency anemia -Hgb 7.3 today, asymptomatic -Continue aranesp, IV iron daily -Will transfuse 1 unit of PRBCs today, consent obtained -Stool occult is negative -Heme/onc on consult, help appreciated Elevated Cr: 2/2 CLIFTON on CKD vs worsening CKD -Baseline Cr 2-3 -BUN/CR on admission 76/6.2 today -Continue Sevelamer 800mg PO TID, Phoslo 1,334mg PO WM -Per nephro, patient may need diaysis if continues to worsen, we will place HD catheter tomorrow with IR -After placement, patient would need to be transferred to [facility] for Hemodialysis -Nephro on consult, help appreciated History of Hypertension -Continue home medications -Added clonidine patch -Lasix 40mg PO daily, Hydralazine 75 mg Q8H, Labetalol 400 mg TID -Added Norvasc 5mg PO daily History of GA -Continue Aspirin 81mg -Plavix 75 mg PO daily discontinued, patient started on Heparin drip -EKG showed NSR -LDL 84. Lipitor 20 mg daily Diabetes Mellitus Type 1/Peripheral Neuropathy: -HgA1c 7.3 -Levemir 25 units Q12H -ISS lispro medium -Accuchecks ACHS Vitamin D Deficiency -Started Ergocalciferol 1 tab q7D CHF (diastolic dysfunction)/Bilateral Lower Extremity Swelling: -Lower extremity doppler negative for DVT -Last echo 07/2016: borderline concentric left ventricular hypertrophy, normal LVEF, grade I abnormal relaxation pattern History of Neurogenic Bladder with Chronic Lira and UTI -S/P bladder pacemaker -Continue Flomax 0.4mg PO daily -UA positive for nitrates and small leuk esterase, urine culture growing gram negative rods -Antibiotics: Cefepime 1gm HS -Urology on consult, for possible bladder pacemaker removal History of Hypothyroidism -Continue home synthroid 175 mcg -TSH 6.86, Free T4 1.06. -Repeat TSH outpatient in 4-6 weeks. Testicular swelling -Testicular US ordered Chronic Constipation -Colace 100mg PO BID, Miralax 17gm PO daily prn constipation -Lactulose 30 grams PO daily -Monitor for bowel function GI/DVT -Protonix 40mg IV daily -SCDs DISPO: Patient's PMD is Dr Wakefield, he will follow up with her upon discharge. Patient is on IV antibiotics for wound infection and UTI. Patient with worsening renal function and may require renal replacement therapy. If continued to worsen, patient will need HD catheter. Patient has been accepted to [facility] for subacute rehab. Plan discussed with Dr Dwyer. Demetria Headley DO PGY-1 <Ector Dwyer - Last Filed: 09/07/17 12:26> Objective - Vital Signs/Intake and Output Vital Signs (last 24 hours): Temp Pulse Resp BP Pulse Ox 97.8 F 65 18 141/75 98 09/06/17 17:31 09/06/17 17:31 09/06/17 17:31 09/06/17 17:31 09/06/17 17:31 - Labs Labs: 09/06/17 06:00 09/06/17 06:00 PT 11.8 SECONDS (9.4-12.5) 09/05/17 18:40 INR 1.03 (0.93-1.08) 09/05/17 18:40 APTT 37.6 Seconds (25.1-36.5) H 09/06/17 09:20 Attending/Attestation - Attestation I have personally seen and examined this patient.: Yes I have fully participated in the care of the patient.: Yes I have reviewed all pertinent clinical information, including history, physical exam and plan: Yes Notes (Text): 09/07/17 12:16 Attending note; Patient seen and examined with resident. Complaining of mild nausea. Denies any vomiting today. Had liquid bowel movement. Patient is a 36 year old male with past medical history of multiple CVAs, diabetes, hypertension and CKD who presented with complaint of worsening vision for the past few days. He was seen by his product safety and standards engineer who recommended neurologic imaging. MRI brain was not able to be obtained secondary to presence of bladder pacemaker. Still with episodes of blurry vision. CT head and carotid dopplers were negative for acute findings. Case discussed with neurologist in detail. Continue aspirin. Agreed to start renally adjusted dose of eliquis. Chronic kidney disease ; patient has uncontrolled diabetes and hypertension. Nephrology evaluation appreciated. Creatinine is worsening. Possible permacath placement tomorrow if creatinine is not improving. So patient is started on heparin drip for the coagulation instead of Eliquis. We will start Eliquis after dialysis catheter placement. Anemia; possibly secondary to anemia of chronic disease. Patient is on IV iron. 1 unit of blood transfusion ordered. Follow-up with hematology Dr. Beckman. Stool occult blood is negative. History of chronic constipation. Continue MiraLAX, Colace and lactulose. Diabetes; increase insulin doasge. Hypertension; continue clonidine patch, hydralazine. Patient had low-grade temperature and elevated white count new. Patient has a wound in the left back. Culture done. Growing gram-negative rods. Identification pending. Started on IV Rocephin. ID evaluation appreciated. CT showed no significant abscess. Central rectal wall thickening noted. Case discussed with GI in detail. GI evaluation appreciated. Physical therapy evaluation appreciated. Subacute rehabilitation recommended. Patient has multiple medical issues. Needs close outpatient follow-up. Prognosis is poor. Upon discharge the patient will follow-up with . 09/07/17 12:25
[2017-09-05] MEDS: Insulin Detemir 100 units/ml Vial (Levemir) SC SCH ×2 (10:40→22:44)
[2017-09-05] MEDS: POLYETHYLENE GLYCOL 3350 17 GM/Dose PACKET PO SCH ×2 (10:42→18:44)
--- NOTE | 2017-09-05 11:32 | CP.PCM.PN ---
Subjective - Date & Time of Evaluation Date of Evaluation: 09/05/17 Time of Evaluation: 11:00 - Subjective Subjective: No complaints. Objective - Vital Signs/Intake and Output Vital Signs (last 24 hours): Temp Pulse Resp BP Pulse Ox 98 F 69 18 141/75 94 L 09/04/17 18:00 09/05/17 11:08 09/04/17 18:00 09/05/17 11:08 09/04/17 18:00 Intake and Output: 09/05/17 09/05/17 06:59 18:59 Intake Total 1440 Output Total 525 Balance 915 - Medications Medications: Current Medications Amlodipine Besylate (Norvasc) 5 mg PO DAILY [facility] Last Admin: 09/05/17 10:39 Dose: 5 mg Aspirin (Ecotrin) 81 mg PO DAILY [facility] Last Admin: 09/05/17 10:39 Dose: 81 mg Atorvastatin Calcium (Lipitor) 20 mg PO DIN [facility] Last Admin: 09/04/17 17:23 Dose: 20 mg Calcium Acetate (Phoslo) 1,334 mg PO WM [facility] Last Admin: 09/05/17 08:39 Dose: Not Given Clonidine HCl (Catapres-Tts3 0.3 Mg/24 Hr) 1 patch TD Q7D@1000 [facility] Docusate Sodium (Colace) 100 mg PO BID [facility] Last Admin: 09/05/17 10:40 Dose: 100 mg Ergocalciferol (Drisdol 50,000 Intl Units Cap) 1 cap PO Q7D [facility] Last Admin: 09/03/17 11:54 Dose: 1 cap Furosemide (Lasix) 40 mg PO DAILY [facility] Last Admin: 09/05/17 10:40 Dose: 40 mg Hydralazine HCl (Apresoline) 75 mg PO Q8 [facility] Last Admin: 09/05/17 05:34 Dose: 75 mg Iron Sucrose 200 mg/ Sodium (Chloride) 110 mls @ 110 mls/hr IVPB DAILY [facility] Stop: 09/07/17 10:01 Last Admin: 09/05/17 11:00 Dose: 110 mls/hr Cefepime HCl (Maxipime 1gm) 1 gm in 100 mls @ 100 mls/hr IVPB [facility] PRN Reason: Protocol Last Admin: 09/04/17 22:16 Dose: 100 mls/hr Heparin Sodium/Sodium Chloride (Heparin 01009 Units/250ml 1/2 Normal Saline) 25 ,000 units in 250 mls @ 20.003 mls/hr IV .[id number] PRN; Protocol; 18 UNITS/KG/HR PRN Reason: ADJUST RATE PER PROTOCOL Insulin Detemir (Levemir) 25 unit SC Q12 [facility] Last Admin: 09/05/17 10:40 Dose: 25 units Insulin Human Lispro (Humalog High) 0 units SC ACHS [facility] PRN Reason: Protocol Last Admin: 09/05/17 08:28 Dose: Not Given Isosorbide Dinitrate (Isordil) 20 mg PO BID [facility] Last Admin: 09/05/17 10:40 Dose: 20 mg Labetalol HCl (Trandate) 400 mg PO TID [facility] Last Admin: 09/05/17 11:08 Dose: 400 mg Lactulose (Enulose) 30 gm PO DAILY [facility] Last Admin: 09/05/17 10:41 Dose: 30 gm Levothyroxine Sodium (Synthroid) 175 mcg PO 0600 [facility] Last Admin: 09/05/17 05:34 Dose: 175 mcg Ondansetron HCl (Zofran Inj) 4 mg IVP Q4H PRN PRN Reason: Nausea/Vomiting Last Admin: 09/04/17 18:54 Dose: 4 mg Polyethylene Glycol (Miralax) 17 gm PO BID [facility] Last Admin: 09/05/17 10:42 Dose: 17 gm Povidone Iodine (Betadine 10% Topical Soln) 0 ml TOP DAILY [facility] Last Admin: 09/04/17 17:29 Dose: 1 applic Tamsulosin HCl (Flomax) 0.4 mg PO DAILY [facility] Last Admin: 09/05/17 10:39 Dose: 0.4 mg Vitamin B Complex/Vit C/Folic Acid (Nephro-Devi) 1 tab PO 0800 [facility] Last Admin: 09/05/17 08:46 Dose: Not Given Zolpidem Tartrate (Ambien) 5 mg PO HS PRN; Protocol PRN Reason: Insomnia Last Admin: 09/03/17 23:26 Dose: 5 mg - Labs Labs: 09/05/17 06:00 09/05/17 06:00 PT 11.4 SECONDS (9.4-12.5) 08/30/17 12:53 INR 0.99 (0.93-1.08) 08/30/17 12:53 APTT 26.0 Seconds (25.1-36.5) 08/30/17 12:53 - Head Exam Head Exam: ATRAUMATIC - Eye Exam Eye Exam: Normal appearance - ENT Exam ENT Exam: Mucous Membranes Dry - Respiratory Exam Respiratory Exam: NORMAL BREATHING PATTERN - Cardiovascular Exam Cardiovascular Exam: +S1, +S2 - GI/Abdominal Exam GI & Abdominal Exam: Normal Bowel Sounds Assessment and Plan (1) Factor V Leiden mutation Assessment & Plan: heterozygous mutation prior CVA and [place] ? acute CVA vs TIA; event occurred while on aspirin and plavix per patient given this, would recommend therapeutic anticoagulation; case discussed with Dr. Dwyer, to start Eliquis 2.5mg BID as renal function continues to worsen normal antithrombin III level Status: Acute (2) Anemia Assessment & Plan: anemia of CKD and iron deficiency on IV iron LEONARD per renal Status: Acute
--- NOTE | 2017-09-05 11:39 | CP.PCM.PN ---
Subjective - Date & Time of Evaluation Date of Evaluation: 09/03/17 Time of Evaluation: 19:00 - Subjective Subjective: No complaints. Objective - Vital Signs/Intake and Output Vital Signs (last 24 hours): Temp Pulse Resp BP Pulse Ox 98 F 69 18 141/75 94 L 09/04/17 18:00 09/05/17 11:08 09/04/17 18:00 09/05/17 11:08 09/04/17 18:00 Intake and Output: 09/05/17 09/05/17 06:59 18:59 Intake Total 1440 Output Total 525 Balance 915 - Medications Medications: Current Medications Amlodipine Besylate (Norvasc) 5 mg PO DAILY [facility] Last Admin: 09/05/17 10:39 Dose: 5 mg Aspirin (Ecotrin) 81 mg PO DAILY [facility] Last Admin: 09/05/17 10:39 Dose: 81 mg Atorvastatin Calcium (Lipitor) 20 mg PO DIN [facility] Last Admin: 09/04/17 17:23 Dose: 20 mg Calcium Acetate (Phoslo) 1,334 mg PO WM [facility] Last Admin: 09/05/17 08:39 Dose: Not Given Clonidine HCl (Catapres-Tts3 0.3 Mg/24 Hr) 1 patch TD Q7D@1000 [facility] Docusate Sodium (Colace) 100 mg PO BID [facility] Last Admin: 09/05/17 10:40 Dose: 100 mg Ergocalciferol (Drisdol 50,000 Intl Units Cap) 1 cap PO Q7D [facility] Last Admin: 09/03/17 11:54 Dose: 1 cap Furosemide (Lasix) 40 mg PO DAILY [facility] Last Admin: 09/05/17 10:40 Dose: 40 mg Hydralazine HCl (Apresoline) 75 mg PO Q8 [facility] Last Admin: 09/05/17 05:34 Dose: 75 mg Iron Sucrose 200 mg/ Sodium (Chloride) 110 mls @ 110 mls/hr IVPB DAILY [facility] Stop: 09/07/17 10:01 Last Admin: 09/05/17 11:00 Dose: 110 mls/hr Cefepime HCl (Maxipime 1gm) 1 gm in 100 mls @ 100 mls/hr IVPB [facility] PRN Reason: Protocol Last Admin: 09/04/17 22:16 Dose: 100 mls/hr Heparin Sodium/Sodium Chloride (Heparin 24352 Units/250ml 1/2 Normal Saline) 25 ,000 units in 250 mls @ 20.003 mls/hr IV .[id number] PRN; Protocol; 18 UNITS/KG/HR PRN Reason: ADJUST RATE PER PROTOCOL Insulin Detemir (Levemir) 25 unit SC Q12 [facility] Last Admin: 09/05/17 10:40 Dose: 25 units Insulin Human Lispro (Humalog High) 0 units SC ACHS [facility] PRN Reason: Protocol Last Admin: 09/05/17 08:28 Dose: Not Given Isosorbide Dinitrate (Isordil) 20 mg PO BID [facility] Last Admin: 09/05/17 10:40 Dose: 20 mg Labetalol HCl (Trandate) 400 mg PO TID [facility] Last Admin: 09/05/17 11:08 Dose: 400 mg Lactulose (Enulose) 30 gm PO DAILY [facility] Last Admin: 09/05/17 10:41 Dose: 30 gm Levothyroxine Sodium (Synthroid) 175 mcg PO 0600 [facility] Last Admin: 09/05/17 05:34 Dose: 175 mcg Ondansetron HCl (Zofran Inj) 4 mg IVP Q4H PRN PRN Reason: Nausea/Vomiting Last Admin: 09/04/17 18:54 Dose: 4 mg Polyethylene Glycol (Miralax) 17 gm PO BID [facility] Last Admin: 09/05/17 10:42 Dose: 17 gm Povidone Iodine (Betadine 10% Topical Soln) 0 ml TOP DAILY [facility] Last Admin: 09/04/17 17:29 Dose: 1 applic Tamsulosin HCl (Flomax) 0.4 mg PO DAILY [facility] Last Admin: 09/05/17 10:39 Dose: 0.4 mg Vitamin B Complex/Vit C/Folic Acid (Nephro-Devi) 1 tab PO 0800 [facility] Last Admin: 09/05/17 08:46 Dose: Not Given Zolpidem Tartrate (Ambien) 5 mg PO HS PRN; Protocol PRN Reason: Insomnia Last Admin: 09/03/17 23:26 Dose: 5 mg - Labs Labs: 09/05/17 06:00 09/05/17 06:00 PT 11.4 SECONDS (9.4-12.5) 08/30/17 12:53 INR 0.99 (0.93-1.08) 08/30/17 12:53 APTT 26.0 Seconds (25.1-36.5) 08/30/17 12:53 - Head Exam Head Exam: ATRAUMATIC - Eye Exam Eye Exam: Normal appearance - ENT Exam ENT Exam: Mucous Membranes Dry - Respiratory Exam Respiratory Exam: NORMAL BREATHING PATTERN - Cardiovascular Exam Cardiovascular Exam: +S1, +S2 - GI/Abdominal Exam GI & Abdominal Exam: Normal Bowel Sounds Assessment and Plan (1) Factor V Leiden mutation Assessment & Plan: heterozygous mutation prior CVA and [place] ? acute CVA vs TIA; event occurred while on aspirin and plavix per patient given this, would recommend therapeutic anticoagulation. Would benefit from NOAC given difficulty monitoring INR with coumadin; timing of anticoagulation per neurology f/u antithrombin III level given nephrotic proteinuria. Status: Acute (2) Anemia Assessment & Plan: anemia of CKD and iron deficiency on IV iron, LEONARD per renal Status: Acute
--- NOTE | 2017-09-05 11:40 | CP.PCM.PN ---
Subjective - Date & Time of Evaluation Date of Evaluation: 09/04/17 Time of Evaluation: 17:00 - Subjective Subjective: No complaints. Objective - Vital Signs/Intake and Output Vital Signs (last 24 hours): Temp Pulse Resp BP Pulse Ox 98 F 69 18 141/75 94 L 09/04/17 18:00 09/05/17 11:08 09/04/17 18:00 09/05/17 11:08 09/04/17 18:00 Intake and Output: 09/05/17 09/05/17 06:59 18:59 Intake Total 1440 Output Total 525 Balance 915 - Medications Medications: Current Medications Amlodipine Besylate (Norvasc) 5 mg PO DAILY [facility] Last Admin: 09/05/17 10:39 Dose: 5 mg Aspirin (Ecotrin) 81 mg PO DAILY [facility] Last Admin: 09/05/17 10:39 Dose: 81 mg Atorvastatin Calcium (Lipitor) 20 mg PO DIN [facility] Last Admin: 09/04/17 17:23 Dose: 20 mg Calcium Acetate (Phoslo) 1,334 mg PO WM [facility] Last Admin: 09/05/17 08:39 Dose: Not Given Clonidine HCl (Catapres-Tts3 0.3 Mg/24 Hr) 1 patch TD Q7D@1000 [facility] Docusate Sodium (Colace) 100 mg PO BID [facility] Last Admin: 09/05/17 10:40 Dose: 100 mg Ergocalciferol (Drisdol 50,000 Intl Units Cap) 1 cap PO Q7D [facility] Last Admin: 09/03/17 11:54 Dose: 1 cap Furosemide (Lasix) 40 mg PO DAILY [facility] Last Admin: 09/05/17 10:40 Dose: 40 mg Hydralazine HCl (Apresoline) 75 mg PO Q8 [facility] Last Admin: 09/05/17 05:34 Dose: 75 mg Iron Sucrose 200 mg/ Sodium (Chloride) 110 mls @ 110 mls/hr IVPB DAILY [facility] Stop: 09/07/17 10:01 Last Admin: 09/05/17 11:00 Dose: 110 mls/hr Cefepime HCl (Maxipime 1gm) 1 gm in 100 mls @ 100 mls/hr IVPB [facility] PRN Reason: Protocol Last Admin: 09/04/17 22:16 Dose: 100 mls/hr Heparin Sodium/Sodium Chloride (Heparin 37093 Units/250ml 1/2 Normal Saline) 25 ,000 units in 250 mls @ 20.003 mls/hr IV .[id number] PRN; Protocol; 18 UNITS/KG/HR PRN Reason: ADJUST RATE PER PROTOCOL Insulin Detemir (Levemir) 25 unit SC Q12 [facility] Last Admin: 09/05/17 10:40 Dose: 25 units Insulin Human Lispro (Humalog High) 0 units SC ACHS [facility] PRN Reason: Protocol Last Admin: 09/05/17 08:28 Dose: Not Given Isosorbide Dinitrate (Isordil) 20 mg PO BID [facility] Last Admin: 09/05/17 10:40 Dose: 20 mg Labetalol HCl (Trandate) 400 mg PO TID [facility] Last Admin: 09/05/17 11:08 Dose: 400 mg Lactulose (Enulose) 30 gm PO DAILY [facility] Last Admin: 09/05/17 10:41 Dose: 30 gm Levothyroxine Sodium (Synthroid) 175 mcg PO 0600 [facility] Last Admin: 09/05/17 05:34 Dose: 175 mcg Ondansetron HCl (Zofran Inj) 4 mg IVP Q4H PRN PRN Reason: Nausea/Vomiting Last Admin: 09/04/17 18:54 Dose: 4 mg Polyethylene Glycol (Miralax) 17 gm PO BID [facility] Last Admin: 09/05/17 10:42 Dose: 17 gm Povidone Iodine (Betadine 10% Topical Soln) 0 ml TOP DAILY [facility] Last Admin: 09/04/17 17:29 Dose: 1 applic Tamsulosin HCl (Flomax) 0.4 mg PO DAILY [facility] Last Admin: 09/05/17 10:39 Dose: 0.4 mg Vitamin B Complex/Vit C/Folic Acid (Nephro-Devi) 1 tab PO 0800 [facility] Last Admin: 09/05/17 08:46 Dose: Not Given Zolpidem Tartrate (Ambien) 5 mg PO HS PRN; Protocol PRN Reason: Insomnia Last Admin: 09/03/17 23:26 Dose: 5 mg - Labs Labs: 09/05/17 06:00 09/05/17 06:00 PT 11.4 SECONDS (9.4-12.5) 08/30/17 12:53 INR 0.99 (0.93-1.08) 08/30/17 12:53 APTT 26.0 Seconds (25.1-36.5) 08/30/17 12:53 - Head Exam Head Exam: ATRAUMATIC - Eye Exam Eye Exam: Normal appearance - ENT Exam ENT Exam: Mucous Membranes Dry - Respiratory Exam Respiratory Exam: NORMAL BREATHING PATTERN - Cardiovascular Exam Cardiovascular Exam: +S1, +S2 Assessment and Plan (1) Factor V Leiden mutation Assessment & Plan: heterozygous mutation prior CVA and [place] ? acute CVA vs TIA; event occurred while on aspirin and plavix per patient given this, would recommend therapeutic anticoagulation. Case discussed with Dr. Dwyer, to start Eliquis 2.5mg BID Status: Acute (2) Anemia Assessment & Plan: anemia of CKD and iron deficiency on supplementation Status: Acute
--- NOTE | 2017-09-05 11:53 | CP.PCM.PN ---
Subjective - Date & Time of Evaluation Date of Evaluation: 09/05/17 Time of Evaluation: 11:52 - Subjective Subjective: Mr. Fernandez was seen and examined at the bedside. He is alert, oriented in all spheres. He claims of improved vision since admission. He denies any headache, dizziness, weakness. He is able to follow simple commands with no movements noted in his bilateral lower extremities.. Currently receiving IV Iron infusion. Echocardiogram did not show any thrombus or PFO however the echo window was poor at the time of study. There was no untoward events overnight. Objective - Vital Signs/Intake and Output Vital Signs (last 24 hours): Temp Pulse Resp BP Pulse Ox 98 F 69 18 141/75 94 L 09/04/17 18:00 09/05/17 11:08 09/04/17 18:00 09/05/17 11:08 09/04/17 18:00 Intake and Output: 09/05/17 09/05/17 06:59 18:59 Intake Total 1440 Output Total 525 Balance 915 - Medications Medications: Current Medications Amlodipine Besylate (Norvasc) 5 mg PO DAILY [facility] Last Admin: 09/05/17 10:39 Dose: 5 mg Aspirin (Ecotrin) 81 mg PO DAILY [facility] Last Admin: 09/05/17 10:39 Dose: 81 mg Atorvastatin Calcium (Lipitor) 20 mg PO DIN [facility] Last Admin: 09/04/17 17:23 Dose: 20 mg Calcium Acetate (Phoslo) 1,334 mg PO WM [facility] Last Admin: 09/05/17 08:39 Dose: Not Given Clonidine HCl (Catapres-Tts3 0.3 Mg/24 Hr) 1 patch TD Q7D@1000 [facility] Docusate Sodium (Colace) 100 mg PO BID [facility] Last Admin: 09/05/17 10:40 Dose: 100 mg Ergocalciferol (Drisdol 50,000 Intl Units Cap) 1 cap PO Q7D [facility] Last Admin: 09/03/17 11:54 Dose: 1 cap Furosemide (Lasix) 40 mg PO DAILY [facility] Last Admin: 09/05/17 10:40 Dose: 40 mg Hydralazine HCl (Apresoline) 75 mg PO Q8 [facility] Last Admin: 09/05/17 05:34 Dose: 75 mg Iron Sucrose 200 mg/ Sodium (Chloride) 110 mls @ 110 mls/hr IVPB DAILY [facility] Stop: 09/07/17 10:01 Last Admin: 09/05/17 11:00 Dose: 110 mls/hr Cefepime HCl (Maxipime 1gm) 1 gm in 100 mls @ 100 mls/hr IVPB HS [facility] PRN Reason: Protocol Last Admin: 09/04/17 22:16 Dose: 100 mls/hr Heparin Sodium/Sodium Chloride (Heparin 12251 Units/250ml 1/2 Normal Saline) 25 ,000 units in 250 mls @ 20.003 mls/hr IV .[id number] PRN; Protocol; 18 UNITS/KG/HR PRN Reason: ADJUST RATE PER PROTOCOL Insulin Detemir (Levemir) 25 unit SC Q12 [facility] Last Admin: 09/05/17 10:40 Dose: 25 units Insulin Human Lispro (Humalog High) 0 units SC ACHS [facility] PRN Reason: Protocol Last Admin: 09/05/17 08:28 Dose: Not Given Isosorbide Dinitrate (Isordil) 20 mg PO BID [facility] Last Admin: 09/05/17 10:40 Dose: 20 mg Labetalol HCl (Trandate) 400 mg PO TID [facility] Last Admin: 09/05/17 11:08 Dose: 400 mg Lactulose (Enulose) 30 gm PO DAILY [facility] Last Admin: 09/05/17 10:41 Dose: 30 gm Levothyroxine Sodium (Synthroid) 175 mcg PO 0600 [facility] Last Admin: 09/05/17 05:34 Dose: 175 mcg Ondansetron HCl (Zofran Inj) 4 mg IVP Q4H PRN PRN Reason: Nausea/Vomiting Last Admin: 09/04/17 18:54 Dose: 4 mg Polyethylene Glycol (Miralax) 17 gm PO BID [facility] Last Admin: 09/05/17 10:42 Dose: 17 gm Povidone Iodine (Betadine 10% Topical Soln) 0 ml TOP DAILY [facility] Last Admin: 09/04/17 17:29 Dose: 1 applic Tamsulosin HCl (Flomax) 0.4 mg PO DAILY [facility] Last Admin: 09/05/17 10:39 Dose: 0.4 mg Vitamin B Complex/Vit C/Folic Acid (Nephro-Devi) 1 tab PO 0800 [facility] Last Admin: 09/05/17 08:46 Dose: Not Given Zolpidem Tartrate (Ambien) 5 mg PO HS PRN; Protocol PRN Reason: Insomnia Last Admin: 09/03/17 23:26 Dose: 5 mg - Labs Labs: 09/05/17 06:00 09/05/17 06:00 PT 11.4 SECONDS (9.4-12.5) 08/30/17 12:53 INR 0.99 (0.93-1.08) 08/30/17 12:53 APTT 26.0 Seconds (25.1-36.5) 08/30/17 12:53 - Constitutional Appears: No Acute Distress - Head Exam Head Exam: NORMAL INSPECTION - Neurological Exam Neurological Exam: Alert, Awake, Oriented x3 Neuro motor strength exam: Left Upper Extremity: 5, Right Upper Extremity: 5, Left Lower Extremity: 0 (wheelchair bound), Right Lower Extremity: 0 ( wheelchair bound) Additional comments: neurological unchanged from previous examination Assessment and Plan (1) Visual loss Assessment & Plan: Case discussed with Dr. Curran, continue all current medical regimen. Recommend MRI of the brain however, the patient has a bladder stimulator which is contraindicated with MRI, glycemic control, keep head o bed elevated at least 30 degrees, follow any orders from Dr. Beckman Status: Acute
[2017-09-05] MEDS: Heparin25000 units/250ml 1/2NS 25,000 UNITS/250 ML BAG IV PRN (12:05)
--- NOTE | 2017-09-05 15:40 | US ---
HISTORY: R/O testicular torsion or hydrocele TECHNIQUE: Realtime sonography through the scrotum with color and doppler flow. COMPARISON: FINDINGS: RIGHT TESTICLE: Measures 3.0 x 2.0 x 2.5 cm. Microlithiasis is appreciated with a mildly heterogeneous appearing right testicle otherwise. A focal solid mass is not identified in the right testicle or cyst. Mildly increased blood flow seen throughout the right testicle on color Doppler blood flow. RIGHT EPIDIDYMIS: Epididymal head measures 0.8 x 1.4 x 1.0 cm. The right epididymal body appears enlarged with the epididymal head slightly enlarged. Both or hyperemic suggesting an addendum itis. . LEFT TESTICLE: Measures 3.9 x 1.6 x 1.9 cm. Microlithiasis is appreciated with a mildly heterogeneous appearing left testicle otherwise. A focal solid mass is not identified in the left testicle or cyst. LEFT EPIDIDYMIS: Epididymal head measures 1.0 x 0.7 x 0.7 cm. Grossly unremarkable appearance with normal flow. HYDROCELE: None. VARICOCELE: None. OTHER FINDINGS: None. IMPRESSION: Findings suspicious for right epididymal orchitis. Further, bilateral testicular microlithiasis is appreciated on a [id number] basis. Urological consultation recommended.
--- NOTE | 2017-09-05 16:04 | CP.PCM.PN ---
Subjective - Date & Time of Evaluation Date of Evaluation: 09/05/17 Time of Evaluation: 15:00 - Subjective Subjective: Infectious Disease Follow Up: September 05, 2017 36 yo male with initial presentation of visual impairment where his right eye had a blacking out and blurry vision in the left eye. The patient was found to have lower back/upper left buttock ulceration and new onset leukocytosis. Mild nausea. Vision improving slowly. No other complaints. Generalized lower body weakness/paralysis. Cultures showing Pseudomonas in the back and urine is still showing gram negative rods. Patient with renal insufficiency/failure. Patient moved to Cefepime IV for antibiotic treatment. Objective - Vital Signs/Intake and Output Vital Signs (last 24 hours): Temp Pulse Resp BP Pulse Ox 97.9 F 70 20 144/79 94 L 09/05/17 13:45 09/05/17 14:00 09/05/17 13:45 09/05/17 13:45 09/04/17 18:00 Intake and Output: 09/05/17 09/05/17 06:59 18:59 Intake Total 1440 950 Output Total 525 300 Balance 915 650 - Medications Medications: Current Medications Amlodipine Besylate (Norvasc) 5 mg PO DAILY [facility] Last Admin: 09/05/17 10:39 Dose: 5 mg Aspirin (Ecotrin) 81 mg PO DAILY [facility] Last Admin: 09/05/17 10:39 Dose: 81 mg Atorvastatin Calcium (Lipitor) 20 mg PO DIN [facility] Last Admin: 09/04/17 17:23 Dose: 20 mg Calcium Acetate (Phoslo) 1,334 mg PO WM [facility] Last Admin: 09/05/17 14:04 Dose: 1,334 mg Clonidine HCl (Catapres-Tts3 0.3 Mg/24 Hr) 1 patch TD Q7D@1000 [facility] Docusate Sodium (Colace) 100 mg PO BID [facility] Last Admin: 09/05/17 10:40 Dose: 100 mg Ergocalciferol (Drisdol 50,000 Intl Units Cap) 1 cap PO Q7D [facility] Last Admin: 09/03/17 11:54 Dose: 1 cap Furosemide (Lasix) 40 mg PO DAILY [facility] Last Admin: 09/05/17 10:40 Dose: 40 mg Hydralazine HCl (Apresoline) 75 mg PO Q8 [facility] Last Admin: 09/05/17 13:41 Dose: 75 mg Iron Sucrose 200 mg/ Sodium (Chloride) 110 mls @ 110 mls/hr IVPB DAILY [facility] Stop: 09/07/17 10:01 Last Admin: 09/05/17 11:00 Dose: 110 mls/hr Cefepime HCl (Maxipime 1gm) 1 gm in 100 mls @ 100 mls/hr IVPB [facility] PRN Reason: Protocol Last Admin: 09/04/17 22:16 Dose: 100 mls/hr Heparin Sodium/Sodium Chloride (Heparin 48161 Units/250ml 1/2 Normal Saline) 25 ,000 units in 250 mls @ 20.003 mls/hr IV .[id number] PRN; Protocol; 18 UNITS/KG/HR PRN Reason: ADJUST RATE PER PROTOCOL Last Admin: 09/05/17 12:05 Dose: 18 units/kg/hr, 20.003 mls/hr Insulin Detemir (Levemir) 25 unit SC Q12 [facility] Last Admin: 09/05/17 10:40 Dose: 25 units Insulin Human Lispro (Humalog High) 0 units SC ACHS [facility] PRN Reason: Protocol Last Admin: 09/05/17 13:43 Dose: 2 unit Isosorbide Dinitrate (Isordil) 20 mg PO BID [facility] Last Admin: 09/05/17 10:40 Dose: 20 mg Labetalol HCl (Trandate) 400 mg PO TID [facility] Last Admin: 09/05/17 13:42 Dose: 400 mg Lactulose (Enulose) 30 gm PO DAILY [facility] Last Admin: 09/05/17 10:41 Dose: 30 gm Levothyroxine Sodium (Synthroid) 175 mcg PO 0600 [facility] Last Admin: 09/05/17 05:34 Dose: 175 mcg Ondansetron HCl (Zofran Inj) 4 mg IVP Q4H PRN PRN Reason: Nausea/Vomiting Last Admin: 09/04/17 18:54 Dose: 4 mg Polyethylene Glycol (Miralax) 17 gm PO BID [facility] Last Admin: 09/05/17 10:42 Dose: 17 gm Povidone Iodine (Betadine 10% Topical Soln) 0 ml TOP DAILY [facility] Last Admin: 09/04/17 17:29 Dose: 1 applic Tamsulosin HCl (Flomax) 0.4 mg PO DAILY [facility] Last Admin: 09/05/17 10:39 Dose: 0.4 mg Vitamin B Complex/Vit C/Folic Acid (Nephro-Devi) 1 tab PO 0800 [facility] Last Admin: 09/05/17 08:46 Dose: Not Given Zolpidem Tartrate (Ambien) 5 mg PO HS PRN; Protocol PRN Reason: Insomnia Last Admin: 09/03/17 23:26 Dose: 5 mg - Labs Labs: 09/05/17 06:00 09/05/17 06:00 PT 11.4 SECONDS (9.4-12.5) 08/30/17 12:53 INR 0.99 (0.93-1.08) 08/30/17 12:53 APTT 26.0 Seconds (25.1-36.5) 08/30/17 12:53 - Constitutional Appears: Non-toxic, No Acute Distress, Chronically Ill - Head Exam Head Exam: ATRAUMATIC, NORMOCEPHALIC - Eye Exam Eye Exam: EOMI, PERRL Pupil Exam: NORMAL ACCOMODATION, PERRL - ENT Exam ENT Exam: Mucous Membranes Moist, Normal External Ear Exam, TM's Normal Bilaterally - Neck Exam Neck Exam: Full ROM, Normal Inspection - Respiratory Exam Respiratory Exam: Clear to Ausculation Bilateral, NORMAL BREATHING PATTERN. absent: Rales, Rhonchi, Wheezes - Cardiovascular Exam Cardiovascular Exam: REGULAR RHYTHM, RRR, +S1, +S2 - GI/Abdominal Exam GI & Abdominal Exam: Soft, Normal Bowel Sounds. absent: Distended, Tenderness - Exam Additional comments: chronic indwelling lópez catheter draining yellow clear urine - Extremities Exam Extremities Exam: Joint Swelling, Pedal Edema. absent: Full ROM Additional comments: b/l flaccid LE paralysis; full ROM UE b/l - Neurological Exam Neurological Exam: Alert, Awake, CN II-XII Intact, Oriented x3 - Psychiatric Exam Psychiatric exam: Normal Affect, Normal Mood - Skin Additional comments: 3cm diameter left buttock ulcer. Assessment and Plan - Assessment and Plan (Free Text) Assessment: 36 yo male with extensive past medical history of DM type 1 with neuropathy, Multiple CVA's, CKD, HTN, DKA, Anxiety presenting with bilateral vision changes , acute on chronic kidney disease, anemia, CAD/AR history, Extensive DM with peripheral neuropathy, CHF, and Neurogenic bladder. Patient with new onset leukocytosis up to 17.2. New upper back ulcerations as well. Started on Ceftriaxone for antibiotic care. Monitor wounds/ulcerations. May need IV Vancomycin. Awaiting wound culture... showing Pseudomonas in wound cultures. Leukocytosis Slightly improved to 15.5 today. Switched to Cefepime from Rocephin. Urine cultures showing gram negative carolee. Supportive care. Thank you for allowing me to participate in the care of the patient, we will follow with you.
[2017-09-05] MEDS: Povidone Iodine Topical 10% Sol TOP SCH (17:06)
[2017-09-05 19:20] LABS: INR 1.03 (0.93-1.08); PROTHROMBIN TIME 11.8 SECONDS (9.4-12.5)
[2017-09-05] MEDS: Cefepime 1gm in NS 100ml 1 GM/100 ML BAG IVPB SCH (22:45)
[2017-09-06] MEDS: Heparin25000 units/250ml 1/2NS 25,000 UNITS/250 ML BAG IV PRN (01:59)
[2017-09-06] MEDS: Levothyroxine 175 MCG TAB PO SCH (06:17)
[2017-09-06 06:23] LABS: BASO # 0.06 K/mm3 (0.0-2.0); BASO % 0.4 % (0.0-3.0); EOS # 0.4 (0.0-0.7); EOS % 3.1 % (1.5-5.0); GRAN # 9.64 (1.4-6.5); GRAN % 72.1 % (50.0-68.0); HEMOGLOBIN 7.5 g/dL (14.0-18.0); LYMPH # 2.1 (1.2-3.4); LYMPH % 15.6 % (22.0-35.0); MEAN CELL VOLUME 87.8 fl (80.0-105.0); MEAN CORPUSCULAR HEMOGLOBIN 28.6 pg (25.0-35.0); MEAN CORPUSCULAR HGB CONC 32.6 g/dl (31.0-37.0); MEAN PLATELET VOLUME 10.4 fl (7.0-11.0); MONO # 1.2 (0.1-0.6); MONO % 8.8 % (1.0-6.0); RBC 2.62 10^6/uL (3.5-6.1); RED CELL DISTRIBUTION WIDTH 14.6 % (11.5-14.5); WHITE BLOOD COUNT 13.4 10^3/ul (4.5-11.0)
[2017-09-06 07:18] LABS: ALBUMIN 2.9 g/dL (3.0-4.8); CALCIUM 8.2 mg/dL (8.4-10.5)
--- NOTE | 2017-09-06 08:27 | CP.PCM.PN ---
Subjective - Date & Time of Evaluation Date of Evaluation: 09/06/17 Time of Evaluation: 07:00 - Subjective Subjective: Patient seen and examined at bedside this AM. No adverse events overnight. patient states that he is having bowel movements with some abdominal discomfort which has resolved. Patient denies any fevers or chills. Objective - Vital Signs/Intake and Output Vital Signs (last 24 hours): Temp Pulse Resp BP Pulse Ox 98 F 68 18 140/80 94 L 09/06/17 00:01 09/06/17 06:07 09/06/17 00:01 09/06/17 06:07 09/06/17 00:01 Intake and Output: 09/06/17 09/06/17 06:59 18:59 Intake Total 888 Output Total 275 Balance 613 - Medications Medications: Current Medications Amlodipine Besylate (Norvasc) 5 mg PO DAILY [facility] Last Admin: 09/05/17 10:39 Dose: 5 mg Aspirin (Ecotrin) 81 mg PO DAILY [facility] Last Admin: 09/05/17 10:39 Dose: 81 mg Atorvastatin Calcium (Lipitor) 20 mg PO DIN [facility] Last Admin: 09/05/17 18:33 Dose: 20 mg Calcium Acetate (Phoslo) 1,334 mg PO WM [facility] Last Admin: 09/05/17 18:32 Dose: 1,334 mg Clonidine HCl (Catapres-Tts3 0.3 Mg/24 Hr) 1 patch TD Q7D@1000 [facility] Ergocalciferol (Drisdol 50,000 Intl Units Cap) 1 cap PO Q7D [facility] Last Admin: 09/03/17 11:54 Dose: 1 cap Furosemide (Lasix) 40 mg PO DAILY [facility] Last Admin: 09/05/17 10:40 Dose: 40 mg Hydralazine HCl (Apresoline) 75 mg PO Q8 [facility] Last Admin: 09/06/17 06:07 Dose: 75 mg Iron Sucrose 200 mg/ Sodium (Chloride) 110 mls @ 110 mls/hr IVPB DAILY [facility] Stop: 09/07/17 10:01 Last Admin: 09/05/17 11:00 Dose: 110 mls/hr Cefepime HCl (Maxipime 1gm) 1 gm in 100 mls @ 100 mls/hr IVPB [facility] PRN Reason: Protocol Last Admin: 09/05/17 22:45 Dose: 100 mls/hr Insulin Detemir (Levemir) 25 unit SC Q12 [facility] Last Admin: 09/05/17 22:44 Dose: 25 units Insulin Human Lispro (Humalog High) 0 units SC ACHS [facility] PRN Reason: Protocol Last Admin: 09/05/17 22:43 Dose: Not Given Isosorbide Dinitrate (Isordil) 20 mg PO BID [facility] Last Admin: 09/05/17 18:33 Dose: 20 mg Labetalol HCl (Trandate) 400 mg PO TID [facility] Last Admin: 09/05/17 18:31 Dose: 400 mg Levothyroxine Sodium (Synthroid) 175 mcg PO 0600 [facility] Last Admin: 09/06/17 06:17 Dose: 175 mcg Ondansetron HCl (Zofran Inj) 4 mg IVP Q4H PRN PRN Reason: Nausea/Vomiting Last Admin: 09/05/17 20:10 Dose: 4 mg Povidone Iodine (Betadine 10% Topical Soln) 0 ml TOP DAILY [facility] Last Admin: 09/05/17 17:06 Dose: Not Given Tamsulosin HCl (Flomax) 0.4 mg PO DAILY [facility] Last Admin: 09/05/17 10:39 Dose: 0.4 mg Vitamin B Complex/Vit C/Folic Acid (Nephro-Devi) 1 tab PO 0800 [facility] Last Admin: 09/05/17 08:46 Dose: Not Given Zolpidem Tartrate (Ambien) 5 mg PO HS PRN; Protocol PRN Reason: Insomnia Last Admin: 09/03/17 23:26 Dose: 5 mg - Labs Labs: 09/06/17 06:00 09/06/17 06:00 PT 11.8 SECONDS (9.4-12.5) 09/05/17 18:40 INR 1.03 (0.93-1.08) 09/05/17 18:40 APTT 202.3 Seconds (25.1-36.5) H* 09/06/17 06:24 - Constitutional Appears: Well, Non-toxic, No Acute Distress - Head Exam Head Exam: ATRAUMATIC, NORMOCEPHALIC - Eye Exam Eye Exam: Normal appearance. absent: Conjunctival injection, Scleral icterus - ENT Exam ENT Exam: Mucous Membranes Moist, Normal Oropharynx - Respiratory Exam Respiratory Exam: NORMAL BREATHING PATTERN. absent: Accessory Muscle Use, Respiratory Distress - Cardiovascular Exam Cardiovascular Exam: RRR - GI/Abdominal Exam GI & Abdominal Exam: Soft. absent: Distended - Extremities Exam Extremities Exam: absent: Calf Tenderness, Pedal Edema, Tenderness - Neurological Exam Neurological Exam: Alert, Awake, Oriented x3 - Psychiatric Exam Psychiatric exam: Normal Affect, Normal Mood - Skin Skin Exam: Dry, Normal Color, Warm Assessment and Plan - Assessment and Plan (Free Text) Assessment: 36M with infected subcutaneous bladder stimulator and chronic constipation Plan: Continue to trend CBC and BMP--patient's WBC decreasing today Continue antibiotics per ID Continue packing in the left hip infected bladder stimulator--patient should follow up with the original urologist who implanted it for removal Follow up urology recs for the UTI and orchitis as seen on ultrasound PRN pain, nausea, and constipation medication Discussed with Dr. Denise Adams, PGY2
[2017-09-06] MEDS: Insulin Lispro (HUMAlog) HIGH Coverage SC SCH ×3 (08:34→17:00)
[2017-09-06] MEDS: Multivitamin Vitamin B Complex (Nephro-Vite) Tab PO SCH (08:38)
--- NOTE | 2017-09-06 08:38 | CON ---
DATE: 09/04/2017 UROLOGY CONSULTATION REASON FOR CONSULTATION: Possible infection of "bladder pacemaker." HISTORY OF PRESENT ILLNESS: The history is from the patient, from the chart. The patient has actually most likely a [employer] device implanted and this was per the history that the patient had this inserted by . From Urology standpoint, the patient has a lot of voiding dysfunction. He has currently been admitted to the hospital. He had multiple medical problems. See the chart for further details. The Urology consult is requested regarding management of this device, see below. PAST MEDICAL AND SURGICAL HISTORY: As listed on the chart. MEDICATIONS: See the chart. PHYSICAL EXAMINATION: The patient prefers not to extend the physical exam right now. See the plan as listed below. DIAGNOSES: From Urology standpoint is infection. The issue at hand is whether this prosthesis needs to be coming out. I will discuss it with the patient further. Tomorrow morning, we will plan to examine him further. back to his original physician for removal; as of now, we will discuss possible removal here. Initially, the plan should be as follows, 1. Antibiotic therapy. 2. Possible removal clinically, but we will have to discuss it when we examine it further when I get more details about the insertion. Bari Wolfe MD
[2017-09-06] MEDS: Povidone Iodine Topical 10% Sol TOP SCH (11:11)
[2017-09-06] MEDS: Insulin Detemir 100 units/ml Vial (Levemir) SC SCH (11:30)
--- NOTE | 2017-09-06 13:50 | CP.PCM.PN ---
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 MVI and dose of aransep 60 mcg on 08/31/17 continue with statins continue with phos binders on weekly Vit D infectious work up as primary team and ID - reviewed ID note S: seen nd examiend Physical Examination: General Appearance: Comfortable, in no acute respiratory distress, co- operative. obese Vitals reviewed and noted as below Head; Atraumatic, normocephalic ENT: no ulcers no thrush. EYES: Eye muscles and extraocular movement intact. Sclera is anicteric. has vision impaired Neck; supple no lymphadenopathy, no thyromegaly or bruit Lungs: Normal respiratory rate/effort. Breath sounds clear and bilateral equal Heart: Normal rate. s1s2 normal. No rub or gallop. Extremities: 1+ edema. No varicose veins Neurological: Patient is alert, awake and oriented x 3 chronic leg paresis Skin: dry and warm. Normal turgor. No rash. Palpitation: Normal elasticity for age Abdomen: Abdomen is soft. Bowel sounds +. There is no abdominal tenderness, no guarding/rigidity or organomegaly Psych: normal insight. normal affect MSK: no specific joint tenderness or swelling. Digits and nails normal, no deformity : kidney or bladder not palpable. has lópez catheter Objective - Vital Signs/Intake and Output Vital Signs (last 24 hours): Temp Pulse Resp BP Pulse Ox 97.9 F 76 20 152/74 H 97 09/06/17 08:34 09/06/17 12:12 09/06/17 08:34 09/06/17 12:12 09/06/17 08:34 Intake and Output: 09/06/17 09/06/17 06:59 18:59 Intake Total 888 Output Total 275 Balance 613 - Medications Medications: Current Medications Amlodipine Besylate (Norvasc) 5 mg PO DAILY [facility] Last Admin: 09/06/17 11:09 Dose: 5 mg Aspirin (Ecotrin) 81 mg PO DAILY [facility] Last Admin: 09/06/17 11:10 Dose: 81 mg Atorvastatin Calcium (Lipitor) 20 mg PO DIN [facility] Last Admin: 09/05/17 18:33 Dose: 20 mg Calcium Acetate (Phoslo) 1,334 mg PO WM [facility] Last Admin: 09/06/17 12:12 Dose: 1,334 mg Clonidine HCl (Catapres-Tts3 0.3 Mg/24 Hr) 1 patch TD Q7D@1000 [facility] Last Admin: 09/06/17 12:12 Dose: 1 patch Ergocalciferol (Drisdol 50,000 Intl Units Cap) 1 cap PO Q7D [facility] Last Admin: 09/03/17 11:54 Dose: 1 cap Furosemide (Lasix) 40 mg PO DAILY [facility] Last Admin: 09/06/17 11:07 Dose: 40 mg Hydralazine HCl (Apresoline) 75 mg PO Q8 [facility] Last Admin: 09/06/17 06:07 Dose: 75 mg Iron Sucrose 200 mg/ Sodium (Chloride) 110 mls @ 110 mls/hr IVPB DAILY [facility] Stop: 09/07/17 10:01 Last Admin: 09/06/17 11:07 Dose: 110 mls/hr Cefepime HCl (Maxipime 1gm) 1 gm in 100 mls @ 100 mls/hr IVPB [facility] PRN Reason: Protocol Last Admin: 09/05/17 22:45 Dose: 100 mls/hr Insulin Detemir (Levemir) 25 unit SC Q12 [facility] Last Admin: 09/06/17 11:30 Dose: 25 units Insulin Human Lispro (Humalog High) 0 units SC ACHS [facility] PRN Reason: Protocol Last Admin: 09/06/17 11:30 Dose: 2 unit Isosorbide Dinitrate (Isordil) 20 mg PO BID [facility] Last Admin: 09/06/17 11:09 Dose: 20 mg Labetalol HCl (Trandate) 400 mg PO TID [facility] Last Admin: 09/06/17 11:08 Dose: 400 mg Levothyroxine Sodium (Synthroid) 175 mcg PO 0600 [facility] Last Admin: 09/06/17 06:17 Dose: 175 mcg Ondansetron HCl (Zofran Inj) 4 mg IVP Q4H PRN PRN Reason: Nausea/Vomiting Last Admin: 09/05/17 20:10 Dose: 4 mg Povidone Iodine (Betadine 10% Topical Soln) 0 ml TOP DAILY [facility] Last Admin: 09/06/17 11:11 Dose: Not Given Tamsulosin HCl (Flomax) 0.4 mg PO DAILY [facility] Last Admin: 09/06/17 11:09 Dose: 0.4 mg Vitamin B Complex/Vit C/Folic Acid (Nephro-Devi) 1 tab PO 0800 [facility] Last Admin: 09/06/17 08:38 Dose: 1 tab Zolpidem Tartrate (Ambien) 5 mg PO HS PRN; Protocol PRN Reason: Insomnia Last Admin: 09/03/17 23:26 Dose: 5 mg - Labs Labs: 09/06/17 06:00 09/06/17 06:00 PT 11.8 SECONDS (9.4-12.5) 09/05/17 18:40 INR 1.03 (0.93-1.08) 09/05/17 18:40 APTT 37.6 Seconds (25.1-36.5) H 09/06/17 09:20
[2017-09-06] MEDS ORDERED: Lidocaine 2% Inj (20ml) ONE (14:47)
[2017-09-06] MEDS ORDERED: Midazolam 2 MG/2 ML VIAL ONE ×2 (15:12→15:25)
[2017-09-06 16:12] VITALS: O2SAT 98
--- NOTE | 2017-09-06 17:09 | CP.PCM.DIS ---
<Sunni Hillman - Last Filed: 09/07/17 10:05> Provider - Provider Date of Admission: 08/30/17 14:46 Attending physician: Ector Dwyer MD Primary care physician: Araseli Wakefield MD Consults: Nephro: [place] Urology: [place] GI: [place] Gen surg: Mos Time Spent in preparation of Discharge (in minutes): 55 Hospital Course - Lab Results Lab Results: Micro Results 09/03/17 22:56 Urine Urine Culture - Final Pseudomonas Aeruginosa 09/03/17 15:31 Back Gram Stain - Final 09/03/17 15:31 Back Wound Culture - Final Pseudomonas Aeruginosa 08/30/17 16:51 Blood Blood Culture - Final NO GROWTH AFTER 5 DAYS 08/30/17 16:51 Blood Gram Stain - Final TEST NOT PERFORMED 08/30/17 16:51 Blood Blood Culture - Final NO GROWTH AFTER 5 DAYS 08/30/17 16:51 Blood Gram Stain - Final TEST NOT PERFORMED Most Recent Lab Values WBC 13.4 10^3/ul (4.5-11.0) H 09/06/17 06:00 RBC 2.62 10^6/uL (3.5-6.1) L 09/06/17 06:00 Hgb 7.5 g/dL (14.0-18.0) L 09/06/17 06:00 Hct 23.0 % (42.0-52.0) L 09/06/17 06:00 MCV 87.8 fl (80.0-105.0) 09/06/17 06:00 MCH 28.6 pg (25.0-35.0) 09/06/17 06:00 MCHC 32.6 g/dl (31.0-37.0) 09/06/17 06:00 RDW 14.6 % (11.5-14.5) H 09/06/17 06:00 Plt Count 318 10^3/uL (120.0-450.0) 09/06/17 06:00 MPV 10.4 fl (7.0-11.0) 09/06/17 06:00 Gran % 72.1 % (50.0-68.0) H 09/06/17 06:00 Lymph % (Auto) 15.6 % (22.0-35.0) L 09/06/17 06:00 [place] % (Auto) 8.8 % (1.0-6.0) H 09/06/17 06:00 Eos % (Auto) 3.1 % (1.5-5.0) 09/06/17 06:00 Baso % (Auto) 0.4 % (0.0-3.0) 09/06/17 06:00 Gran # 9.64 (1.4-6.5) H 09/06/17 06:00 Lymph # (Auto) 2.1 (1.2-3.4) 09/06/17 06:00 [place] # (Auto) 1.2 (0.1-0.6) H 09/06/17 06:00 Eos # (Auto) 0.4 (0.0-0.7) 09/06/17 06:00 Baso # (Auto) 0.06 K/mm3 (0.0-2.0) 09/06/17 06:00 Retic Count 1.13 % (0.5-1.5) 08/30/17 12:53 PT 11.8 SECONDS (9.4-12.5) 09/05/17 18:40 INR 1.03 (0.93-1.08) 09/05/17 18:40 APTT 37.6 Seconds (25.1-36.5) H 09/06/17 09:20 Lupus Anticoagulant see note 09/01/17 07:30 LA PTT Screen 44 sec (<=40) H 09/01/17 07:30 dRVVT Mixing Study 37 sec (<=45) 09/01/17 07:30 dRVVT Mix Interpret Not indicated 09/01/17 07:30 Protein C Antigen 91 % (70-140) 09/01/17 07:30 Protein C Activity 84 % (70-180) 09/01/17 07:30 Protein S Activity 85 % (70-150) 09/01/17 07:30 Protein S Antigen 105 % (70-140) 09/01/17 07:30 Antithrombin III Ag 108 % (80-120) 09/02/17 07:35 Antithrombin III Activ 118 % activity (80-120) 09/02/17 07:35 Factor V see note H 09/01/17 07:30 pO2 69 mm/Hg (30-55) H 08/30/17 12:53 VBG pH 7.23 (7.32-7.43) L 08/30/17 12:53 VBG pCO2 54.0 (40-60) 08/30/17 12:53 VBG HCO3 22.6 mmol/l (21-28) 08/30/17 12:53 VBG Total CO2 24.3 mmol.L (22-28) 08/30/17 12:53 VBG O2 Sat (Calc) 96.9 % (40-65) H 08/30/17 12:53 VBG Base Excess -5.5 mmol/L (0.0-2.0) L 08/30/17 12:53 VBG Potassium 4.9 mmol/L (3.6-5.2) 08/30/17 12:53 Sodium 141.0 mmol/L (132-148) 08/30/17 12:53 Chloride 114.0 mmol/L (98-107) H 08/30/17 12:53 Glucose 84 mg/dl (75-110) 08/30/17 12:53 Lactate 1.1 mmol/L (0.7-2.1) 08/30/17 12:53 FiO2 21.0 % 08/30/17 12:53 Sodium 136 mmol/L (132-148) 09/06/17 06:00 Potassium 4.3 mmol/L (3.6-5.0) 09/06/17 06:00 Chloride 103 mmol/L (98-107) 09/06/17 06:00 Carbon Dioxide 19 mmol/L (21-33) L 09/06/17 06:00 Anion Gap 18 (10-20) 09/06/17 06:00 BUN 77 mg/dL (7-21) H 09/06/17 06:00 Creatinine 6.7 mg/dl (0.8-1.5) H 09/06/17 06:00 Est GFR ( Amer) 11 09/06/17 06:00 Est GFR (Non-Af Amer) 9 09/06/17 06:00 POC Glucose (mg/dL) 128 mg/dL (65-110) H 09/06/17 16:50 Random Glucose 172 mg/dL (70-110) H 09/06/17 06:00 Hemoglobin A1c 7.3 % (4.2-6.5) H 08/30/17 16:50 Calcium 8.2 mg/dL (8.4-10.5) L 09/06/17 06:00 Phosphorus 6.8 mg/dL (2.5-4.5) H 09/06/17 06:00 Magnesium 2.6 mg/dL (1.7-2.2) H 09/06/17 06:00 Iron 56 ug/dL (45-180) 08/30/17 16:50 TIBC 248 ug/dL (261-462) L 08/30/17 16:50 % Saturation 23 % (20-55) 08/30/17 16:50 Ferritin 28.3 ng/mL 08/30/17 16:50 Total Bilirubin 0.3 mg/dL (0.2-1.3) 09/06/17 06:00 AST 16 U/L (17-59) L 09/06/17 06:00 ALT 15 U/L (7-56) 09/06/17 06:00 Alkaline Phosphatase 95 U/L (38-126) 09/06/17 06:00 Lactate Dehydrogenase 486 U/L (333-699) 08/30/17 12:53 Total Creatine Kinase 157 U/L (35-230) 08/30/17 12:53 Troponin I 0.01 ng/mL D 08/30/17 12:53 Total Protein 5.8 g/dL (5.8-8.3) 09/06/17 06:00 Albumin 2.9 g/dL (3.0-4.8) L 09/06/17 06:00 Globulin 2.9 gm/dL 09/06/17 06:00 Albumin/Globulin Ratio 1.0 (1.1-1.8) L 09/06/17 06:00 Triglycerides 39 mg/dL (35-160) 08/30/17 16:50 Cholesterol 151 mg/dL (130-200) 08/30/17 16:50 LDL Cholesterol Direct 84 mg/dL (0-129) 08/30/17 16:50 HDL Cholesterol 45 mg/dL (29-60) 08/30/17 16:50 Vitamin B12 532 pg/mL (239-931) 08/30/17 16:50 25-OH Vitamin D Total 13.0 NG/ML (30.0-100.0) L 09/01/17 07:30 Folate 8.4 ng/mL 08/30/17 16:50 Procalcitonin 0.31 NG/ML (0.19-0.49) 09/03/17 13:45 Free T4 1.06 ng/dL (0.78-2.19) 08/30/17 16:50 TSH 3rd Generation 6.86 mIU/mL (0.46-4.68) H 08/31/17 05:30 PTH Intact Whole Molec 65 pg/mL (14-64) H 08/31/17 11:45 Venous Blood Potassium 4.9 mmol/L (3.6-5.2) 08/30/17 12:53 Urine Color Yellow (YELLOW) 09/03/17 15:00 Urine Appearance Cloudy (CLEAR) 09/03/17 15:00 Urine pH 6.0 (4.7-8.0) 09/03/17 15:00 Ur Specific [place] 1.025 (1.005-1.035) 09/03/17 15:00 Urine Protein >=300 mg/dL (<30 mg/dL) H 09/03/17 15:00 Urine Glucose (UA) 250 mg/dL (NEGATIVE) H 09/03/17 15:00 Urine Ketones Negative mg/dL (NEGATIVE) 09/03/17 15:00 Urine Blood Negative (NEGATIVE) 09/03/17 15:00 Urine Nitrate Positive (NEGATIVE) H 09/03/17 15:00 Urine Bilirubin Negative (NEGATIVE) 09/03/17 15:00 Urine Urobilinogen 0.2 E.U./dL (<1 E.U./dL) 09/03/17 15:00 Ur Leukocyte Esterase Small Thaddeus/uL (NEGATIVE) H 09/03/17 15:00 Urine RBC 5 - 10 /hpf (0-2) 09/03/17 15:00 Urine WBC Tntc /hpf (0-6) 09/03/17 15:00 Ur Epithelial Cells 0 - 2 /hpf (0-5) 09/03/17 15:00 Urine Bacteria Many (NEG) 09/03/17 15:00 Ur Random Creatinine 79 mg/dL 09/03/17 01:20 Ur Random Sodium 44 meq/L 09/03/17 01:20 Ur Random Urea Nitrogn 405 mg/dL 09/03/17 01:20 Stool Occult Blood Negative (NEGATIVE) 09/03/17 14:30 Blood Type A POSITIVE 09/05/17 06:00 Antibody Screen Negative 09/05/17 06:00 Crossmatch See Detail 09/05/17 06:00 BBK History Checked Patient has bt 09/05/17 06:00 - Hospital Course Hospital Course: Patient is a 36 year old male with past medical history of DM type 1 with neuropathy, Multiple CVA's, CKD, HTN, DKA, Anxiety presents to the ED for visual changes. Patient states that his vision has been progressively getting worse over the past few months. He states that his vision was the worst on Sunday when his right eye "went black" and his left eye was blurry. Patient was seen by his opthomologist yesterday who states that he may have had a TIA and should go to the hospital for MRI. Patient currently states that in the right eye he sees shadows, its painful and blurry. Left eye is blurry. He also reports that he has a chronic lópez that was placed after his multiple CVAs 3 years ago secondary after being diagnosed with neurogenic bladder. The lópez catheter has been in for 6 weeks and needs to be exchanged. He offers no other complaints at this time. Denies headaches, dizziness, cp, palpitations, sob, abdominal pain, urinary symptoms, admits to chronic constipation. Last bowel movement was on Sunday. Denies any black tarry stools, blood in stool, pain with defecationHe came in for vision changes. Was sent from his opthomologist for an MRI to rule out stroke. He couldn't get the MRI because he has a bladder pacemaker. CT head on admission was negative. Neurology was on consult. Later in hospital course, he had new complaints of cloudy vision. Repeat CT head was negative. He had leukocytosis with low grade fever. Was started on antibiotics for UTI and lumbar wound infection where bladder pacemaker was placed. Cultures were sent to the lab. ID was on consult. Wound care was following the patient. General surgery was consulted for possible I+D. Urology was consulted for possible removal of bladder pacemaker. Lumbar CT showed no abscess. Pelvic CT showed rectal wall thickening, R/O rectal neoplasm. GI was consulted and recommended outpatient colonoscopy and EGD. For chronic constipation we gave him stool softeners and an enema. Hypercoaguable workup showed he has factor V Leiden mutation. Heme Onc suggests starting eliquis 2.5mg BID. Neurology in agreement with this plan. For diabetes, we checked his hgA1c. His levemir was increased to 25 units Q12H.For hypertension, his medications were adjusted. For anemia of chronic disease he was started on IV iron and also received 1 unit of PRBCs. He also had acute on chronic kidney disease on admission . We got nephrology. Renal function continued to get worse. He got a HD Catheter and was transferred to [facility] for dialysis. PT recommended [facility] for disposition. Patient was accepted to [facility] for rehab. He will go there once medically stable for discharge from [facility] and follow up with his PMD, Dr. Wakefield within one week after discharge. - Date & Time of H&P Date of H&P: 09/06/17 Time of H&P: 17:50 Discharge Exam - Head Exam Head Exam: ATRAUMATIC, NORMOCEPHALIC - Eye Exam Eye Exam: EOMI - ENT Exam ENT Exam: Mucous Membranes Moist - Neck Exam Neck exam: Normal Inspection - Respiratory Exam Respiratory Exam: NORMAL BREATHING PATTERN. absent: Accessory Muscle Use - Cardiovascular Exam Cardiovascular Exam: +S1, +S2 - GI/Abdominal Exam GI & Abdominal Exam: Normal Bowel Sounds - Extremities Exam Extremities exam: pedal edema - Neurological Exam Neurological exam: Alert, Oriented x3 - Psychiatric Exam Psychiatric exam: Depressed - Skin Skin Exam: Dry, Intact, Normal Color, Warm Discharge Plan - Discharge Medications Prescriptions: Apixaban [Eliquis] 2.5 mg PO BID 30 Days tab Cefepime 1gm in NS 100ml [Maxipime 1gm] 1 gm IVPB HS 8 Days bag - Follow Up Plan Condition: FAIR Disposition: Trans to Other Acute Care Hosp Instructions: Type 1 Diabetes, Hemodialysis (DC) Additional Instructions: PATIENT BEING TRANSFERRED TO [facility] FOR DIALYSIS. Please start eliquis 2.5 mg BID starting tonight if no bleeding. Referrals: Araseli Wakefield MD [Primary Care Provider] - <Ector Dwyer - Last Filed: 09/07/17 12:31> Provider - Provider Date of Admission: 08/30/17 14:46 Attending physician: Ector Dwyer MD Primary care physician: Araseli Wakefield MD Hospital Course - Lab Results Lab Results: Micro Results 09/03/17 22:56 Urine Urine Culture - Final Pseudomonas Aeruginosa 09/03/17 15:31 Back Gram Stain - Final 09/03/17 15:31 Back Wound Culture - Final Pseudomonas Aeruginosa 08/30/17 16:51 Blood Blood Culture - Final NO GROWTH AFTER 5 DAYS 08/30/17 16:51 Blood Gram Stain - Final TEST NOT PERFORMED 08/30/17 16:51 Blood Blood Culture - Final NO GROWTH AFTER 5 DAYS 08/30/17 16:51 Blood Gram Stain - Final TEST NOT PERFORMED Most Recent Lab Values WBC 13.4 10^3/ul (4.5-11.0) H 09/06/17 06:00 RBC 2.62 10^6/uL (3.5-6.1) L 09/06/17 06:00 Hgb 7.5 g/dL (14.0-18.0) L 09/06/17 06:00 Hct 23.0 % (42.0-52.0) L 09/06/17 06:00 MCV 87.8 fl (80.0-105.0) 09/06/17 06:00 MCH 28.6 pg (25.0-35.0) 09/06/17 06:00 MCHC 32.6 g/dl (31.0-37.0) 09/06/17 06:00 RDW 14.6 % (11.5-14.5) H 09/06/17 06:00 Plt Count 318 10^3/uL (120.0-450.0) 09/06/17 06:00 MPV 10.4 fl (7.0-11.0) 09/06/17 06:00 Gran % 72.1 % (50.0-68.0) H 09/06/17 06:00 Lymph % (Auto) 15.6 % (22.0-35.0) L 09/06/17 06:00 [place] % (Auto) 8.8 % (1.0-6.0) H 09/06/17 06:00 Eos % (Auto) 3.1 % (1.5-5.0) 09/06/17 06:00 Baso % (Auto) 0.4 % (0.0-3.0) 09/06/17 06:00 Gran # 9.64 (1.4-6.5) H 09/06/17 06:00 Lymph # (Auto) 2.1 (1.2-3.4) 09/06/17 06:00 [place] # (Auto) 1.2 (0.1-0.6) H 09/06/17 06:00 Eos # (Auto) 0.4 (0.0-0.7) 09/06/17 06:00 Baso # (Auto) 0.06 K/mm3 (0.0-2.0) 09/06/17 06:00 Retic Count 1.13 % (0.5-1.5) 08/30/17 12:53 PT 11.8 SECONDS (9.4-12.5) 09/05/17 18:40 INR 1.03 (0.93-1.08) 09/05/17 18:40 APTT 37.6 Seconds (25.1-36.5) H 09/06/17 09:20 Lupus Anticoagulant see note 09/01/17 07:30 LA PTT Screen 44 sec (<=40) H 09/01/17 07:30 dRVVT Mixing Study 37 sec (<=45) 09/01/17 07:30 dRVVT Mix Interpret Not indicated 09/01/17 07:30 Protein C Antigen 91 % (70-140) 09/01/17 07:30 Protein C Activity 84 % (70-180) 09/01/17 07:30 Protein S Activity 85 % (70-150) 09/01/17 07:30 Protein S Antigen 105 % (70-140) 09/01/17 07:30 Antithrombin III Ag 108 % (80-120) 09/02/17 07:35 Antithrombin III Activ 118 % activity (80-120) 09/02/17 07:35 Factor V see note H 09/01/17 07:30 pO2 69 mm/Hg (30-55) H 08/30/17 12:53 VBG pH 7.23 (7.32-7.43) L 08/30/17 12:53 VBG pCO2 54.0 (40-60) 08/30/17 12:53 VBG HCO3 22.6 mmol/l (21-28) 08/30/17 12:53 VBG Total CO2 24.3 mmol.L (22-28) 08/30/17 12:53 VBG O2 Sat (Calc) 96.9 % (40-65) H 08/30/17 12:53 VBG Base Excess -5.5 mmol/L (0.0-2.0) L 08/30/17 12:53 VBG Potassium 4.9 mmol/L (3.6-5.2) 08/30/17 12:53 Sodium 141.0 mmol/L (132-148) 08/30/17 12:53 Chloride 114.0 mmol/L (98-107) H 08/30/17 12:53 Glucose 84 mg/dl (75-110) 08/30/17 12:53 Lactate 1.1 mmol/L (0.7-2.1) 08/30/17 12:53 FiO2 21.0 % 08/30/17 12:53 Sodium 136 mmol/L (132-148) 09/06/17 06:00 Potassium 4.3 mmol/L (3.6-5.0) 09/06/17 06:00 Chloride 103 mmol/L (98-107) 09/06/17 06:00 Carbon Dioxide 19 mmol/L (21-33) L 09/06/17 06:00 Anion Gap 18 (10-20) 09/06/17 06:00 BUN 77 mg/dL (7-21) H 09/06/17 06:00 Creatinine 6.7 mg/dl (0.8-1.5) H 09/06/17 06:00 Est GFR ( Amer) 11 09/06/17 06:00 Est GFR (Non-Af Amer) 9 09/06/17 06:00 POC Glucose (mg/dL) 128 mg/dL (65-110) H 09/06/17 16:50 Random Glucose 172 mg/dL (70-110) H 09/06/17 06:00 Hemoglobin A1c 7.3 % (4.2-6.5) H 08/30/17 16:50 Calcium 8.2 mg/dL (8.4-10.5) L 09/06/17 06:00 Phosphorus 6.8 mg/dL (2.5-4.5) H 09/06/17 06:00 Magnesium 2.6 mg/dL (1.7-2.2) H 09/06/17 06:00 Iron 56 ug/dL (45-180) 08/30/17 16:50 TIBC 248 ug/dL (261-462) L 08/30/17 16:50 % Saturation 23 % (20-55) 08/30/17 16:50 Ferritin 28.3 ng/mL 08/30/17 16:50 Total Bilirubin 0.3 mg/dL (0.2-1.3) 09/06/17 06:00 AST 16 U/L (17-59) L 09/06/17 06:00 ALT 15 U/L (7-56) 09/06/17 06:00 Alkaline Phosphatase 95 U/L (38-126) 09/06/17 06:00 Lactate Dehydrogenase 486 U/L (333-699) 08/30/17 12:53 Total Creatine Kinase 157 U/L (35-230) 08/30/17 12:53 Troponin I 0.01 ng/mL D 08/30/17 12:53 Total Protein 5.8 g/dL (5.8-8.3) 09/06/17 06:00 Albumin 2.9 g/dL (3.0-4.8) L 09/06/17 06:00 Globulin 2.9 gm/dL 09/06/17 06:00 Albumin/Globulin Ratio 1.0 (1.1-1.8) L 09/06/17 06:00 Triglycerides 39 mg/dL (35-160) 08/30/17 16:50 Cholesterol 151 mg/dL (130-200) 08/30/17 16:50 LDL Cholesterol Direct 84 mg/dL (0-129) 08/30/17 16:50 HDL Cholesterol 45 mg/dL (29-60) 08/30/17 16:50 Vitamin B12 532 pg/mL (239-931) 08/30/17 16:50 25-OH Vitamin D Total 13.0 NG/ML (30.0-100.0) L 09/01/17 07:30 Folate 8.4 ng/mL 08/30/17 16:50 Procalcitonin 0.31 NG/ML (0.19-0.49) 09/03/17 13:45 Free T4 1.06 ng/dL (0.78-2.19) 08/30/17 16:50 TSH 3rd Generation 6.86 mIU/mL (0.46-4.68) H 08/31/17 05:30 PTH Intact Whole Molec 65 pg/mL (14-64) H 08/31/17 11:45 Venous Blood Potassium 4.9 mmol/L (3.6-5.2) 08/30/17 12:53 Urine Color Yellow (YELLOW) 09/03/17 15:00 Urine Appearance Cloudy (CLEAR) 09/03/17 15:00 Urine pH 6.0 (4.7-8.0) 09/03/17 15:00 Ur Specific [place] 1.025 (1.005-1.035) 09/03/17 15:00 Urine Protein >=300 mg/dL (<30 mg/dL) H 09/03/17 15:00 Urine Glucose (UA) 250 mg/dL (NEGATIVE) H 09/03/17 15:00 Urine Ketones Negative mg/dL (NEGATIVE) 09/03/17 15:00 Urine Blood Negative (NEGATIVE) 09/03/17 15:00 Urine Nitrate Positive (NEGATIVE) H 09/03/17 15:00 Urine Bilirubin Negative (NEGATIVE) 09/03/17 15:00 Urine Urobilinogen 0.2 E.U./dL (<1 E.U./dL) 09/03/17 15:00 Ur Leukocyte Esterase Small Thaddeus/uL (NEGATIVE) H 09/03/17 15:00 Urine RBC 5 - 10 /hpf (0-2) 09/03/17 15:00 Urine WBC Tntc /hpf (0-6) 09/03/17 15:00 Ur Epithelial Cells 0 - 2 /hpf (0-5) 09/03/17 15:00 Urine Bacteria Many (NEG) 09/03/17 15:00 Ur Random Creatinine 79 mg/dL 09/03/17 01:20 Ur Random Sodium 44 meq/L 09/03/17 01:20 Ur Random Urea Nitrogn 405 mg/dL 09/03/17 01:20 Stool Occult Blood Negative (NEGATIVE) 09/03/17 14:30 Blood Type A POSITIVE 09/05/17 06:00 Antibody Screen Negative 09/05/17 06:00 Crossmatch See Detail 09/05/17 06:00 BBK History Checked Patient has bt 09/05/17 06:00 Attending/Attestation - Attestation I have personally seen and examined this patient.: Yes I have fully participated in the care of the patient.: Yes I have reviewed all pertinent clinical information, including history, physical exam and plan: Yes Notes (Text): 09/07/17 12:26 Attending note; Patient seen and examined with resident. Patient's father and girlfriend by the bedside. Patient is a 36 year old male with past medical history of multiple CVAs, diabetes, hypertension and CKD who presented with complaint of worsening vision for the past few days. He was seen by his plant puller who recommended neurologic imaging. MRI brain was not able to be obtained secondary to presence of bladder pacemaker. CT head and carotid dopplers were negative for acute findings. Case discussed with neurologist in detail. Continue aspirin and NOAC. Chronic kidney disease ; patient has uncontrolled diabetes and hypertension. Nephrology evaluation appreciated. Creatinine is worsening. permacath placement today by DR. Andriy chino. Patient will be transferred to [facility] for dialysis today. Heparin drip on hold for catheter placement. We will start Eliquis after dialysis catheter placement. Anemia; possibly secondary to anemia of chronic disease.got 1 unit of blood transfusion yesterday. Hemoglobin is still 7.5. Follow-up with hematology Dr. Beckman. Stool occult blood is negative. History of chronic constipation. Continue MiraLAX, Colace and lactulose. Diabetes; increase insulin doasge. Hypertension; continue clonidine patch, hydralazine. Patient had low-grade temperature and elevated white count new. Patient has a wound in the left back. Culture shows Pseudomonas. Started on IV cefepime. ID evaluation appreciated. CT showed no significant abscess. Patient might need bladder pacemaker removal as outpatient. Central rectal wall thickening noted. Outpatient endoscopy and colonoscopy recommended. GI evaluation appreciated. Physical therapy evaluation appreciated. Subacute rehabilitation recommended. Patient has multiple medical issues. Needs close outpatient follow-up. Prognosis is poor. Upon discharge the patient will follow-up with . Transfer to [facility] for hemodialysis today. Patient care Transfer [facility]. 09/07/17 12:29
[2017-09-06 17:33] VITALS: BP 141/75; PULSE 65; RESP 18; TEMP 97.8
--- NOTE | 2017-09-06 19:38 | CP.PCM.PN ---
Subjective - Date & Time of Evaluation Date of Evaluation: 09/06/17 Time of Evaluation: 18:00 - Subjective Subjective: Infectious Disease Follow Up: September 06, 2017 36 yo male with initial presentation of visual impairment where his right eye had a blacking out and blurry vision in the left eye. The patient was found to have lower back/upper left buttock ulceration and new onset leukocytosis. Mild nausea. Vision improving slowly. No other complaints. Generalized lower body weakness/paralysis. Cultures showing Pseudomonas in the back wound and urine is still showing gram negative rods. Patient with renal insufficiency/failure. Patient moved to Cefepime IV for antibiotic treatment. Renal function deteriorated and the patient was brought to [facility] for HD. The patient required IV iron therapy and PRBC transfusion. Right testicular orchitis on renal ultrasound. Objective - Vital Signs/Intake and Output Vital Signs (last 24 hours): Temp Pulse Resp BP Pulse Ox 97.8 F 65 18 141/75 98 09/06/17 17:31 09/06/17 17:31 09/06/17 17:31 09/06/17 17:31 09/06/17 17:31 Intake and Output: 09/06/17 09/07/17 18:59 06:59 Intake Total 600 Output Total 400 Balance 200 - Labs Labs: 09/06/17 06:00 09/06/17 06:00 PT 11.8 SECONDS (9.4-12.5) 09/05/17 18:40 INR 1.03 (0.93-1.08) 09/05/17 18:40 APTT 37.6 Seconds (25.1-36.5) H 09/06/17 09:20 - Constitutional Appears: Non-toxic, No Acute Distress, Chronically Ill - Head Exam Head Exam: ATRAUMATIC, NORMOCEPHALIC - Eye Exam Eye Exam: EOMI, PERRL Pupil Exam: NORMAL ACCOMODATION, PERRL - ENT Exam ENT Exam: Mucous Membranes Moist, Normal External Ear Exam, TM's Normal Bilaterally - Neck Exam Neck Exam: Full ROM, Normal Inspection - Respiratory Exam Respiratory Exam: Clear to Ausculation Bilateral, NORMAL BREATHING PATTERN. absent: Rales, Rhonchi, Wheezes - Cardiovascular Exam Cardiovascular Exam: REGULAR RHYTHM, RRR, +S1, +S2 - GI/Abdominal Exam GI & Abdominal Exam: Soft, Normal Bowel Sounds. absent: Distended, Tenderness - Exam Additional comments: chronic indwelling lópez catheter draining yellow clear urine - Extremities Exam Extremities Exam: Joint Swelling, Pedal Edema. absent: Full ROM Additional comments: b/l flaccid LE paralysis; full ROM UE b/l - Neurological Exam Neurological Exam: Alert, Awake, CN II-XII Intact, Oriented x3 - Psychiatric Exam Psychiatric exam: Normal Affect, Normal Mood - Skin Additional comments: 3cm diameter left buttock ulcer Assessment and Plan - Assessment and Plan (Free Text) Assessment: 36 yo male with extensive past medical history of DM type 1 with neuropathy, Multiple CVA's, CKD, HTN, DKA, Anxiety presenting with bilateral vision changes , acute on chronic kidney disease, anemia, CAD/PA history, Extensive DM with peripheral neuropathy, CHF, and Neurogenic bladder. Patient with new onset leukocytosis up to 17.2. New upper back ulcerations as well. Started on Ceftriaxone for antibiotic care. Monitor wounds/ulcerations. May need IV Vancomycin. Awaiting wound culture... showing Pseudomonas in wound cultures. Leukocytosis Slightly improved to 15.5 today. Switched to Cefepime from Rocephin. Urine cultures showing gram negative carolee. Supportive care. Renal insufficiency/failure. Sent to [facility] for HD. Creatinine values continued to elevate. Thank you for allowing me to participate in the care of the patient, we will follow with you.
--- NOTE | 2017-09-06 20:01 | VASCULAR ---
PROCEDURE: Ultrasound and fluoroscopic tunneled right IJ dialysis catheter. CLINICAL HISTORY: ESRD PHYSICIAN(S): Andriy Gomez M.D. TECHNIQUE: The relative risks and indications for the procedure were explained to the patient and informed written consent obtained. The patient was placed supine on the arteriography table and the right neck/chest was prepped and draped in the usual sterile fashion. 1% Xylocaine was used to anesthetize the skin and soft tissues at the puncture site. Conscious sedation and monitoring were provided throughout the procedure by a nurse. Under direct ultrasound guidance, the rightinternal jugular vein was punctured with a micropuncture set. A 0.035 Glidewire was advanced into the IVC. Sequential dilatation was performed with subsequent placement of a 28cmNextstep catheter with its tip in the right atrium. A retrograde tunnel below the right clavicle was performed. The catheter was trimmed and the hub attached. Both ports aspirate and inject easily. The catheter was secured and a dressing applied. The patient tolerated the procedure well. IMPRESSION: 1. Ultrasound and fluoroscopically placed right IJ tunneled dialysis catheter.
== END 2017-09-06 19:05 | disposition short-term general hospital (02) | DRG 683 ==
LOC: ED 11:27 → ERH 14:46 → 3RNO 20:11
PROVIDERS: ADMIT Internal Medicine; ATTEND Internal Medicine
PROC: 30233N1 Transfusion of Nonautologous Red Blood Cells into Peripheral Vein, Percutaneous Approach (ICD-10-PCS; 2017-09-05)
PROC: 05HM33Z Insertion of Infusion Device into Right Internal Jugular Vein, Percutaneous Approach (ICD-10-PCS; principal; 2017-09-06)
PROC: B543ZZA Ultrasonography of Right Jugular Veins, Guidance (ICD-10-PCS; 2017-09-06)
DX: N17.9 Acute kidney failure, unspecified (principal); N39.0 Urinary tract infection, site not specified; D68.51 Activated protein C resistance; I13.0 Hypertensive heart and chronic kidney disease with heart failure and stage 1 through stage 4 chronic kidney disease, or unspecified chronic kidney disease; I50.30 Unspecified diastolic (congestive) heart failure; T83.590A Infection and inflammatory reaction due to implanted urinary neurostimulation device, initial encounter; N18.4 Chronic kidney disease, stage 4 (severe); H54.61 Unqualified visual loss, right eye, normal vision left eye; D63.1 Anemia in chronic kidney disease; D50.9 Iron deficiency anemia, unspecified; E10.21 Type 1 diabetes mellitus with diabetic nephropathy; E10.22 Type 1 diabetes mellitus with diabetic chronic kidney disease; E10.42 Type 1 diabetes mellitus with diabetic polyneuropathy; E10.319 Type 1 diabetes mellitus with unspecified diabetic retinopathy without macular edema; I25.10 Atherosclerotic heart disease of native coronary artery without angina pectoris; F41.9 Anxiety disorder, unspecified; E03.9 Hypothyroidism, unspecified; H35.30 Unspecified macular degeneration; E78.00 Pure hypercholesterolemia, unspecified; J44.9 Chronic obstructive pulmonary disease, unspecified; K59.09 Other constipation; N31.9 Neuromuscular dysfunction of bladder, unspecified; E55.9 Vitamin D deficiency, unspecified; E83.39 Other disorders of phosphorus metabolism; E10.622 Type 1 diabetes mellitus with other skin ulcer; L89.109 Pressure ulcer of unspecified part of back, unspecified stage; L98.429 Non-pressure chronic ulcer of back with unspecified severity; B96.5 Pseudomonas (aeruginosa) (mallei) (pseudomallei) as the cause of diseases classified elsewhere; E87.5 Hyperkalemia; N45.2 Orchitis; M51.36 Other intervertebral disc degeneration, lumbar region; L98.419 Non-pressure chronic ulcer of buttock with unspecified severity; Y83.8 Other surgical procedures as the cause of abnormal reaction of the patient, or of later complication, without mention of misadventure at the time of the procedure; Z79.02 Long term (current) use of antithrombotics/antiplatelets; Z86.73 Personal history of transient ischemic attack (TIA), and cerebral infarction without residual deficits; Z79.82 Long term (current) use of aspirin; Z83.3 Family history of diabetes mellitus; Z99.3 Dependence on wheelchair; Z82.49 Family history of ischemic heart disease and other diseases of the circulatory system; Z82.3 Family history of stroke; Z88.2 Allergy status to sulfonamides; I25.2 Old myocardial infarction

== ENCOUNTER 2017-10-05 18:55 | Emergency (ER) | payer MEDICARE, MEDICAID ==
[2017-10-05 19:30] VITALS: BMI 36.9
--- NOTE | 2017-10-05 19:42 | ED PDOC ---
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 Patient denies sob, cp, abdominal pain, or fever. Patient noted when he was hospitalized in [facility] on September 14, his Dialysis Access on right chest was removed. He stated a "fistula" for dialysis was placed on his left arm on the same day. (Garima Guerra) Past Medical History - Provider Review Nursing Documentation Reviewed: Yes - Infectious Disease Hx of Infectious Diseases: None - Tetanus Immunization Tetanus Immunization: Unknown - Cardiac Hx Cardiac Disorders: Yes Hx Congestive Heart Failure: No Hx CA: Yes Hx Hypertension: Yes - Pulmonary Hx Respiratory Disorders: No Hx Chronic Obstructive Pulmonary Disease (COPD): No - Neurological Hx Neurological Disorder: Yes HX Cerebrovascular Accident: Yes (12/2013 Bilateral Lower extremities flaccid) Other/Comment: TIA OF EYES - HEENT Hx HEENT Disorder: Yes (wears glasses, recent vision loss due to cva) Hx Blind: No Hx Deafness: No Hx Difficulty Chewing: No Hx Epistaxis: No Hx Glaucoma: No Other/Comment: BLURRY VISION - Renal Hx Renal Disorder: Yes ("interstem, 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") Hx Pyelonephritis: Yes Hx Renal Failure: Yes - Endocrine/Metabolic Hx Endocrine Disorders: Yes Hx Diabetes Mellitus Type 1: Yes (dx at age 10.) Hx Diabetes Mellitus Type 2: No Hx Hypothyroidism: Yes (synthroid) - Hematological/Oncological Hx Blood Disorders: No Hx AIDS: No Hx Anemia: No Hx Cancer: No Hx Chemotherapy: No Hx Cirrhosis: No Hx Hemophilia: No Hx Hepatitis A: No Hx Hepatitis B: No Hx Hepatitis C: No Hx Metastasis: No Hx Shingles: No Hx Unexplained Bleeding: No - Integumentary Hx Dermatological Disorder: No Hx Basal Cell Carcinoma: No Hx Eczema: No Hx Melanoma: No Hx Psoriasis: No Hx Squamous Cell Carcinoma: No - Musculoskeletal/Rheumatological Hx Musculoskeletal Disorders: Yes Hx Falls: No Hx Unsteady Gait: Yes Other/Comment: PARALYSIS BLE - Gastrointestinal Hx Gastrointestinal Disorders: Yes (colitis) - Genitourinary/Gynecological Hx Genitourinary Disorders: Yes (chronic indwelling lópez) Hx Incontinence: Yes Hx Urinary Tract Infection: Yes (multiple, MRSA) - Psychiatric Hx Psychophysiologic Disorder: No Hx Substance Use: No - Past Surgical History Past Surgical History: No Previous - Surgical History Hx Cardiac Catheterization: No Hx Coronary Stent: No Other/Comment: bladder surgery - Anesthesia Hx Anesthesia: Yes Hx Anesthesia Reactions: No Hx Malignant Hyperthermia: No - Suicidal Assessment Feels Threatened In Home Enviroment: No <GuerraNahim P - Last Filed: 10/05/17 21:28> Family/Social History - Physician Review Nursing Documentation Reviewed: Yes Family/Social History: Other (noncontributory) Smoking Status: Never Smoked Hx Alcohol Use: No Hx Substance Use: No Hx Substance Use Treatment: No <Guerra,Nahim P - Last Filed: 10/05/17 21:28> Allergies/Home Meds <GuerraNahim P - Last Filed: 10/05/17 21:28> <Remy Arrieta - Last Filed: 10/05/17 22:21> Allergies/Adverse Reactions: Allergies sulfamethoxazole [From Bactrim] Allergy (Verified 10/05/17 22:17) ANAPHYLAXIS trimethoprim [From Bactrim] Allergy (Verified 10/05/17 22:17) ANAPHYLAXIS Home Medications: Home Meds Medication Instructions Recorded Confirmed Isosorbide Dinitrate [Isordil] 20 mg PO BID 08/30/17 08/30/17 Review of Systems - Review of Systems Constitutional: Fatigue. absent: Weight Change, Fevers, Night Sweats Eyes: Normal ENT: Normal. absent: Sore Throat Respiratory: Normal. absent: SOB, Cough Cardiovascular: Normal. absent: Chest Pain, Palpitations Gastrointestinal: Normal. absent: Abdominal Pain, Nausea, Vomiting Genitourinary Male: Other (López catheter in place) Musculoskeletal: Back Pain (chronic back pain) Skin: Normal Neurological: Normal Endocrine: Normal Hemo/Lymphatic: Normal Psychiatric: Normal <Guerra,Nahim P - Last Filed: 10/05/17 21:28> Physical Exam Temperature: Afebrile Blood Pressure: Normal Pulse: Regular Respiratory Rate: Normal Appearance: Positive for: Well-Appearing, Non-Toxic, Comfortable Pain Distress: None Mental Status: Positive for: Alert and Oriented X 3 - Systems Exam Head: Present: Atraumatic, Normocephalic Pupils: Present: PERRL Extroacular Muscles: Present: EOMI Conjunctiva: Present: Normal Mouth: Present: Moist Mucous Membranes Neck: Present: Normal Range of Motion Respiratory/Chest: Present: Clear to Auscultation, Good Air Exchange. No: Respiratory Distress, Accessory Muscle Use Cardiovascular: Present: Regular Rate and Rhythm, Normal S1, S2. No: Murmurs Abdomen: No: Tenderness, Distention, Peritoneal Signs Back: Present: Normal Inspection Upper Extremity: Present: Normal Inspection, Normal ROM, NORMAL PULSES. No: Cyanosis, Edema Lower Extremity: Present: Normal Inspection, Edema (chronic edema), Other ( Patient has decreased lower extremity ROM , which it is baseline) Neurological: Present: GCS=15, CN II-XII Intact, Speech Normal Skin: Present: Warm, Dry, Normal Color. No: Rashes Psychiatric: Present: Alert, Oriented x 3, Normal Insight, Normal Concentration <Guerra,Nahim P - Last Filed: 10/05/17 21:28> Vital Signs Temp Pulse Resp BP Pulse Ox 10/05/17 21:20 97.7 F 58 L 17 110/59 L 98 10/05/17 18:56 97.6 F 57 L 16 102/53 L 96 Medical Decision Making Reassessment Condition: Re-examined - Lab Interpretations I have reviewed the lab results: Yes Interpretation: Abnormal lab values <Guerra,Nahim P - Last Filed: 10/05/17 21:28> <Remy Arrieta - Last Filed: 10/05/17 22:21> ED Course and Treatment: 10/05/17 20:56 Dr. Arrieta spoke with Dr. Daniels at [facility]-ED, due to patient needs Dialysis. 10/05/17 21:03 (Guerra,Nahim P) 10/05/17 20:58 Patient is somewhat lethargic and confused. He is acutely uremic. His access was removed approximately 3 weeks ago. Potassium is 6.8. He is bradycardic with a primary AV block. His T waves are somewhat peaked. His potassium will be temporize with calcium gluconate IV insulin and D50. Patient needs acute dialysis for uremia. He will be transferred to [facility] for acute dialysis. I spoke with the emergency room physician who accepts the patient in transfer. I spoke with the chassis driver who will arrange for dialysis at [facility] this evening. The hospitalist [facility] will see the patient there. Kayexalate will be started here. ALS transport has been called with [facility]. 10/05/17 21:19 Discussed with hospitalist at [facility] who accepts patient. (Remy Arrieta) - Lab Interpretations Lab Results: 10/05/17 19:22 10/05/17 19:22 Lab Results 10/05/17 21:00: POC Glucose (mg/dL) 148 H 10/05/17 20:05: pO2 222 H, VBG pH 7.29 L, VBG pCO2 38.0 L, VBG HCO3 18.3 L, VBG Total CO2 19.5 L, VBG O2 Sat (Calc) 99.7 H, VBG Base Excess -7.7 L, VBG Potassium 6.9 H*, Glucose 147 H, Lactate 0.9, FiO2 21.0, Sodium 118.0 L*, Chloride 93.0 L, Venous Blood Potassium 6.9 H* 10/05/17 19:22: Sodium 123 L, Potassium 6.8 H* D, Chloride 91 L, Carbon Dioxide 18 L, Anion Gap 21 H, BUN 115 H, Creatinine 8.1 H* D, Est GFR ( Amer) 9, Est GFR (Non-Af Amer) 8, Random Glucose 118 H, Calcium 7.7 L, Phosphorus 7.8 H, Magnesium 2.8 H, Total Bilirubin 0.5, AST 28, ALT 20, Alkaline Phosphatase 78, Troponin I < 0.01, NT-Pro-B Natriuret Pep 4220 H, Total Protein 5.8, Albumin 3.2 , Globulin 2.5, Albumin/Globulin Ratio 1.3 10/05/17 19:22: PT 13.0 H, INR 1.14 H, APTT 33.7 10/05/17 19:22: WBC 5.0 D, RBC 3.09 L, Hgb 9.2 L, Hct 27.9 L, MCV 90.3, MCH 29.8, MCHC 33.0, RDW 14.6 H, Plt Count 207, MPV 11.5 H, Gran % 70.0 H, Lymph % ( Auto) 12.9 L, [place] % (Auto) 13.5 H, Eos % (Auto) 3.2, Baso % (Auto) 0.4, Gran # 3.48, Lymph # (Auto) 0.6 L, [place] # (Auto) 0.7 H, Eos # (Auto) 0.2, Baso # (Auto ) 0.02, ESR 23 H 10/05/17 19:14: POC Glucose (mg/dL) 127 H - RAD Interpretation Radiology Orders: 10/05/17 19:42 CHEST PORTABLE [RAD] Stat - Medication Orders Current Medication Orders: Discontinued Medications Calcium Gluconate (Calcium Gluconate Iv) 1,000 mg IVP ONCE ONE Stop: 10/05/17 20:46 Last Admin: 10/05/17 21:01 Dose: 1,000 mg Dextrose (Dextrose 50% Inj) 50 ml IVP STAT STA Stop: 10/05/17 20:47 Last Admin: 10/05/17 20:56 Dose: 50 ml IVP Administration Document 10/05/17 20:56 RD (Rec: 10/05/17 20:58 RD [id number]) Charges for Administration # of IVP Administrations 1 Insulin Human Regular (Humulin R) 10 units IV ONCE STA Stop: 10/05/17 20:48 Last Admin: 10/05/17 20:56 Dose: 10 units eMAR Start Stop Document 10/05/17 20:56 RD (Rec: 10/05/17 21:01 RD [id number]) Intravenous Solution Start Date 10/05/17 Start Time 20:56 End Date 10/05/17 End time 20:57 Total Infusion Time 1 MAR Blood Glucose Document 10/05/17 20:56 RD (Rec: 10/05/17 21:01 RD [id number]) Blood Glucose Finger Stick Blood Glucose (70-120) 148 Sodium Polystyrene Sulfonate (Kayexalate Susp) 60 gm PO STAT STA Stop: 10/05/17 21:04 Last Admin: 10/05/17 21:18 Dose: 60 gm Disposition/Present on Arrival - Present on Arrival Any Indicators Present on Arrival: No History of DVT/PE: No History of Uncontrolled Diabetes: Yes Urinary Catheter: Yes History Surgical Site Infection Following: None - Disposition Have Diagnosis and Disposition been Completed?: Yes <Garima Guerra - Last Filed: 10/05/17 21:28> - Present on Arrival Any Indicators Present on Arrival: No History of DVT/PE: No History of Uncontrolled Diabetes: Yes Urinary Catheter: Yes History of Decub. Ulcer: No - Disposition Have Diagnosis and Disposition been Completed?: Yes Disposition Time: 21:23 Patient Plan: Transfer To [facility] <Remy Arrieta - Last Filed: 10/05/17 22:21> - Disposition Diagnosis: Hyperkalemia, Renal failure, Uremia Disposition: Transfer [facility] Condition: CRITICAL Forms: [facility] (Iranian)
[2017-10-05 20:15] LABS: BASO # 0.02 K/mm3 (0.0-2.0); BASO % 0.4 % (0.0-3.0); EOS # 0.2 (0.0-0.7); EOS % 3.2 % (1.5-5.0); GRAN # 3.48 (1.4-6.5); HEMOGLOBIN 9.2 g/dL (14.0-18.0); LYMPH # 0.6 (1.2-3.4); LYMPH % 12.9 % (22.0-35.0); MEAN CELL VOLUME 90.3 fl (80.0-105.0); MEAN CORPUSCULAR HEMOGLOBIN 29.8 pg (25.0-35.0); MEAN PLATELET VOLUME 11.5 fl (7.0-11.0); MONO # 0.7 (0.1-0.6); MONO % 13.5 % (1.0-6.0); RBC 3.09 10^6/uL (3.5-6.1); RED CELL DISTRIBUTION WIDTH 14.6 % (11.5-14.5)
[2017-10-05 20:18] LABS: VENOUS BLOOD GAS BASE EXCESS -7.7 mmol/L (0.0-2.0); VENOUS BLOOD GAS PO2 222 mm/Hg (30-55); VENOUS BLOOD PH 7.29 (7.32-7.43)
[2017-10-05 20:30] LABS: INR 1.14 (0.93-1.08); PARTIAL THROMBOPLASTIN TIME 33.7 Seconds (25.1-36.5)
[2017-10-05 20:40] LABS: ALB/GLOB RATIO 1.3 (1.1-1.8); ALBUMIN 3.2 g/dL (3.0-4.8); ALT/SGPT 20 U/L (7-56); AST/SGOT 28 U/L (17-59); B-TYPE NATRIURETIC PEPTIDE 4220 pg/mL (0-450); BLOOD UREA NITROGEN 115 mg/dL (7-21); CALCIUM 7.7 mg/dL (8.4-10.5); TROPONIN I < 0.01 ng/mL
[2017-10-05] MEDS ORDERED: Dextrose 50% SYRINGE Inj (50 ml) IVP STA (20:46)
[2017-10-05] MEDS ORDERED: Insulin Regular 1 UNITS/0.01 ML ML IV STA (20:47)
[2017-10-05] MEDS ORDERED: Sod Polystyrene Sulf 15 gm/60 ml Susp PO STA (21:03)
[2017-10-05 21:12] LABS: GFR AFRICAN-AMERICAN 9; GFR NON-AFRICAN AMERICAN 8
[2017-10-05 21:28] VITALS: BP 110/59; PULSE 58; RESP 17; TEMP 97.7; O2SAT 98
--- NOTE | 2017-10-06 09:11 | RAD ---
Date of service: 10/05/2017 HISTORY: Sepsis Patient COMPARISON: 08/30/2017 FINDINGS: LUNGS: No active pulmonary disease. PLEURA: No significant pleural effusion identified, no pneumothorax apparent. CARDIOVASCULAR: Normal. OSSEOUS STRUCTURES: No significant abnormalities. VISUALIZED UPPER ABDOMEN: Normal. OTHER FINDINGS: None. IMPRESSION: No active disease. No significant interval change compared to the prior examination(s). Concordant results with the preliminary interpretation rendered by the emergency department physician procedure.
--- NOTE | 2017-10-06 20:34 | CARD ---
APPROVED REPORT Date of service: 10/05/2017 EKG Measurement Heart [id number] <Conclusion> Sinus bradycardia with 1st degree AV block Rightward axis Borderline ECG
== END 2017-10-05 21:28 | disposition short-term general hospital (02) ==
LOC: ED 18:55
DX: N17.9 Acute kidney failure, unspecified (principal); E87.5 Hyperkalemia; I12.9 Hypertensive chronic kidney disease with stage 1 through stage 4 chronic kidney disease, or unspecified chronic kidney disease; E10.22 Type 1 diabetes mellitus with diabetic chronic kidney disease; N18.9 Chronic kidney disease, unspecified; I25.2 Old myocardial infarction; Z86.73 Personal history of transient ischemic attack (TIA), and cerebral infarction without residual deficits
CPT/HCPCS: 71045; 80053; 82803; 82948; 83735; 83880; 84100; 84145; 84484; 85025; 85610; 85651; 85730; 93005; 96374; 96375; 99285; J0610

== ENCOUNTER 2018-02-07 14:15 | Inpatient (IN) | payer MEDICARE, MEDICAID ==
[2018-02-07 14:22] VITALS: BMI 37.6
--- NOTE | 2018-02-07 15:51 | CT ---
Date of service: 02/07/2018 PROCEDURE: CT Abdomen and Pelvis without intravenous contrast HISTORY: hematuria COMPARISON: 09/13/2016 TECHNIQUE: Technique. Contrast dose: Radiation dose: Total exam DLP = 1037.26 mGy-cm. This CT exam was performed using one or more of the following dose reduction techniques: Automated exposure control, adjustment of the mA and/or kV according to patient size, and/or use of iterative reconstruction technique. FINDINGS: LOWER THORAX: Unremarkable. LIVER: Unremarkable. No gross lesion or ductal dilatation. GALLBLADDER AND BILE DUCTS: Unremarkable. PANCREAS: Unremarkable. No gross lesion or ductal dilatation. SPLEEN: Unremarkable. ADRENALS: Unremarkable. No mass. KIDNEYS AND URETERS: Unremarkable. No hydronephrosis. No solid mass. VASCULATURE: Unremarkable. No aortic aneurysm. No aortic atherosclerotic calcification or mural plaque present. BOWEL: There is a large amount of stool in the rectum with mural thickening. This is similar to the previous study. APPENDIX: Unremarkable. Normal appendix. PERITONEUM: Unremarkable. No free fluid. No free air. LYMPH NODES: Unremarkable. No enlarged lymph nodes. BLADDER: There is a Lira catheter in the bladder. The bladder is decompressed in cannot be evaluated REPRODUCTIVE: Unremarkable. BONES: No acute fracture. OTHER FINDINGS: None. IMPRESSION: No evidence of urolithiasis or renal mass. Fecal impaction with chronic mural thickening of the rectal wall
[2018-02-07 16:17] LABS: BASO # 0.03 K/mm3 (0.0-2.0); BASO % 0.3 % (0.0-3.0); EOS # 0.1 (0.0-0.7); EOS % 1.4 % (1.5-5.0); GRAN # 6.77 (1.4-6.5); HEMOGLOBIN 9.7 g/dL (14.0-18.0); LYMPH # 1.3 (1.2-3.4); LYMPH % 13.9 % (22.0-35.0); MEAN CELL VOLUME 96.6 fl (80.0-105.0); MEAN CORPUSCULAR HEMOGLOBIN 30.3 pg (25.0-35.0); MEAN CORPUSCULAR HGB CONC 31.4 g/dl (31.0-37.0); MEAN PLATELET VOLUME 9.6 fl (7.0-11.0); MONO # 1.3 (0.1-0.6); MONO % 13.4 % (1.0-6.0); RBC 3.2 10^6/uL (3.5-6.1); RED CELL DISTRIBUTION WIDTH 15.3 % (11.5-14.5); WHITE BLOOD COUNT 9.5 10^3/uL (4.5-11.0)
[2018-02-07 16:24] LABS: INR 1.35; PARTIAL THROMBOPLASTIN TIME 29.8 Seconds (25.1-36.5); PROTHROMBIN TIME 15.5 SECONDS (9.4-12.5)
[2018-02-07 16:33] LABS: ALB/GLOB RATIO 1.1 (1.1-1.8)
[2018-02-07 17:28] LABS: URINE BILIRUBIN LARGE (NEGATIVE); URINE BLOOD LARGE (NEGATIVE); URINE GLUCOSE (UA) NEGATIVE (NEGATIVE); URINE LEUKOCYTE ESTERASE LARGE Leu/uL (NEGATIVE); URINE PROTEIN >=300 mg/dL (<30 mg/dL)
--- NOTE | 2018-02-07 17:29 | ED PDOC ---
Arrival/HPI - General Chief Complaint: Male Genitourinary Time Seen by Provider: 02/07/18 14:16 Historian: Patient, Caregiver - History of Present Illness Narrative History of Present Illness (Text): 02/07/18 17:53 37yr old male with hx of ESRD on dialysis, CVA, DM presents with gross hematuria. pt states he woke up this morning with 250cc of gross blood in lópez bag. no no vomiting. pt states he felt nauseous during dialysis yesterday, but did not vomiting. pt denies fever/chills. pt states at times he has been having some abdominal discomfort. pt states he has been having diarrhea for 2 days. pts caregiver at home states patient was feeling fatigued and bp was 66 sytolic at home. pt states he is feeling slightly better here. states he usually puts out about 300-350cc of urine daily. pt states the urologist replaced the lópez catheter 2 days ago without any issues. no other complaints. Past Medical History - Provider Review Nursing Documentation Reviewed: Yes - Travel History Have you recently traveled outside [place] w/in the past 3 mons?: No - Infectious Disease Hx of Infectious Diseases: None - Tetanus Immunization Tetanus Immunization: Unknown - Cardiac Hx Hypertension: Yes - Pulmonary Hx Asthma: No Hx Bronchitis: No Hx Chronic Obstructive Pulmonary Disease (COPD): No Hx Emphysema: No Hx Pneumonia: No Hx Sleep Apnea: No - Neurological HX Cerebrovascular Accident: Yes Hx Transient Ischemic Attacks (TIA): Yes - HEENT Hx HEENT Disorder: Yes (wears glasses, recent vision loss due to cva) Hx Blind: No Hx Deafness: No Hx Difficulty Chewing: No Hx Epistaxis: No Hx Glaucoma: No Other/Comment: BLURRY VISION. 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") Hx Dialysis: Yes Type of Dialysis Access: L av shunt, R chest udall Date of Last Dialysis Treatment: 02/06/18 Hx Renal Failure: Yes - Endocrine/Metabolic Hx Diabetes Mellitus Type 1: Yes Hx Hypothyroidism: Yes - Hematological/Oncological Hx Anemia: No - Integumentary Hx Dermatological Disorder: No Hx Basal Cell Carcinoma: No Hx Eczema: No Hx Melanoma: No Hx Psoriasis: No Hx Squamous Cell Carcinoma: No - Musculoskeletal/Rheumatological Hx Fractures: Yes (FX BOTH FOOT,FINGERS,ROTATOR CUFF -SPORTS RELATED) - Gastrointestinal Hx Gastrointestinal Disorders: Yes (colitis) - Genitourinary/Gynecological Hx Genitourinary Disorders: Yes (chronic indwelling lópez) Hx Incontinence: Yes Hx Urinary Tract Infection: Yes (multiple, MRSA) - Psychiatric Hx Anxiety: Yes Hx Depression: No Hx Substance Use: No - Past Surgical History Past Surgical History: No Previous - Surgical History Hx Coronary Stent: No - Anesthesia Hx Anesthesia: Yes Hx Anesthesia Reactions: No Hx Malignant Hyperthermia: No - Suicidal Assessment Feels Threatened In Home Enviroment: No Family/Social History - Physician Review Nursing Documentation Reviewed: Yes Family/Social History: Unknown Family HX Smoking Status: Never Smoked Hx Alcohol Use: No Hx Substance Use: No Hx Substance Use Treatment: No Allergies/Home Meds Allergies/Adverse Reactions: Allergies sulfamethoxazole [From Bactrim] Allergy (Verified 10/05/17 22:17) ANAPHYLAXIS trimethoprim [From Bactrim] Allergy (Verified 10/05/17 22:17) ANAPHYLAXIS Home Medications: Home Meds Medication Instructions Recorded Confirmed B Complex W-C No.20/Folic Acid 1 mg PO DAILY 02/07/18 02/07/18 [Nephrocaps Softgel] Calcitriol [Rocaltrol] 0.5 mcg PO DAILY 02/07/18 02/07/18 Docusate Sodium [Dulcolax Stool 1 cap RC DAILY 02/07/18 02/07/18 Softener] Duloxetine HCl [Duloxetine] 30 mg PO DAILY 02/07/18 02/07/18 Ergocalciferol [Drisdol] 50,000 iu PO QWK 02/07/18 02/07/18 Furosemide [Lasix] 40 mg PO MWF 02/07/18 02/07/18 HYDROmorphone [Dilaudid 2 mg Tab] 2 mg PO DAILY 02/07/18 02/07/18 Insulin Glargine,Hum.rec.anlog 15 unit SQ BID 02/07/18 02/07/18 [Basaglar Kwikpen U-100] Insulin Human Regular [HumuLIN R] 7 units SC TID 02/07/18 02/07/18 Isosorbide Dinitrate [Isordil] 20 mg PO DAILY 02/07/18 02/07/18 Labetalol [Trandate] 300 mg PO BID 02/07/18 02/07/18 Linaclotide [Linzess] 145 mcg PO DAILY 02/07/18 02/07/18 Rosuvastatin Calcium [Crestor] 20 mg PO HS 02/07/18 02/07/18 Sevelamer Carbonate [Renvela] 800 mg PO TID 02/07/18 02/07/18 Zolpidem [Ambien] 10 mg PO HS PRN 02/07/18 02/07/18 Review of Systems - Review of Systems Constitutional: Fatigue. absent: Fevers Respiratory: absent: SOB, Cough Cardiovascular: absent: Chest Pain, Palpitations Gastrointestinal: Abdominal Pain, Nausea. absent: Constipation, Diarrhea, V omiting Genitourinary Male: Hematuria Musculoskeletal: Back Pain (chronic). absent: Arthralgias Skin: absent: Rash, Pruritis Neurological: absent: Headache, Dizziness Psychiatric: absent: Anxiety, Depression Physical Exam Vital Signs Reviewed: Yes Vital Signs Temp Pulse Resp BP Pulse Ox 02/07/18 15:51 82 18 126/57 L 97 02/07/18 14:22 98.6 F 79 18 88/50 L 96 Temperature: Afebrile Blood Pressure: Hypotensive Pulse: Regular Respiratory Rate: Normal Appearance: Positive for: Well-Appearing, Non-Toxic, Comfortable Pain Distress: None Mental Status: Positive for: Alert and Oriented X 3 - Systems Exam Head: Present: Atraumatic Mouth: Present: Moist Mucous Membranes Neck: Present: Normal Range of Motion Respiratory/Chest: Present: Clear to Auscultation Cardiovascular: Present: Regular Rate and Rhythm Abdomen: No: Tenderness, Distention, Peritoneal Signs, Rebound, Guarding Back: Present: Normal Inspection Upper Extremity: Present: Normal ROM Neurological: Present: GCS=15, Speech Normal Skin: Present: Warm, Dry, Normal Color Psychiatric: Present: Alert, Oriented x 3 Medical Decision Making ED Course and Treatment: 02/07/18 18:02 patient with fatigue, with episode of low blood pressure at home hematuria on eliquis cbc; hgb; 9.7 cmp; bun;52 cr; 6.0 pt/inr; wnl abd/pelvis; FINDINGS: LOWER THORAX: Unremarkable. LIVER: Unremarkable. No gross lesion or ductal dilatation. GALLBLADDER AND BILE DUCTS: Unremarkable. PANCREAS: Unremarkable. No gross lesion or ductal dilatation. SPLEEN: Unremarkable. ADRENALS: Unremarkable. No mass. KIDNEYS AND URETERS: Unremarkable. No hydronephrosis. No solid mass. VASCULATURE: Unremarkable. No aortic aneurysm. No aortic atherosclerotic calcification or mural plaque present. BOWEL: There is a large amount of stool in the rectum with mural thickening. This is similar to the previous study. APPENDIX: Unremarkable. Normal appendix. PERITONEUM: Unremarkable. No free fluid. No free air. LYMPH NODES: Unremarkable. No enlarged lymph nodes. BLADDER: There is a López catheter in the bladder. The bladder is decompressed in cannot be evaluated REPRODUCTIVE: Unremarkable. BONES: No acute fracture. OTHER FINDINGS: None. IMPRESSION: No evidence of urolithiasis or renal mass. Fecal impaction with chronic mural thickening of the rectal wall UA; + blood, TNTC wbcs, TNTC rbs prior to attempted disimpaction there was small amount of stool noted in diaper. rectal disimpaction performed; unsuccessful; pt with hx of chronic constipation, per patients sister he does rectal suppositories and oral medications for the chronic constipation . will admit the patient observational status for hematuria on eliquis with possible UTI. will monitor H&H as patient with continued hematuria. pt with stable vitals in er; NO hypotension noted since initial vitals which resolved without any intervention. on CT pt with decompressed bladder can not r/o cystitis. will give dose of rocephin case discussed with dr. case; will admit observational status status to med/surg case discussed with dr. green in depth. impression;hematuria, uti, fecal impaction admit observational status to med/surg 02/07/18 19:17 Reassessment Condition: Re-examined, Improved - Lab Interpretations Lab Results: 02/07/18 15:16 02/07/18 15:16 Lab Results 02/07/18 15:16: Blood Type A POSITIVE, Antibody Screen Negative, BBK History Checked Patient has bt 02/07/18 15:16: WBC 9.5, RBC 3.20 L, Hgb 9.7 L, Hct 30.9 L, MCV 96.6 D, MCH 30.3, MCHC 31.4, RDW 15.3 H, Plt Count 247, MPV 9.6, Gran % 71.0 H, Lymph % (Auto) 13.9 L, [place] % (Auto) 13.4 H, Eos % (Auto) 1.4 L, Baso % (Auto) 0.3, Gran # 6.77 H, Lymph # (Auto) 1.3, [place] # (Auto) 1.3 H, Eos # (Auto) 0.1, Baso # (Auto) 0.03 02/07/18 15:16: Sodium 137, Potassium 4.6, Chloride 94 L, Carbon Dioxide 31, Anion Gap 18, BUN 52 H, Creatinine 6.0 H, Est GFR ( Amer) 13, Est GFR (Non-Af Amer) 11, Random Glucose 135 H, Calcium 9.0, Total Bilirubin 1.1, AST 35, ALT 47, Alkaline Phosphatase 125, Total Protein 7.4, Albumin 4.0, Globulin 3.4, Albumin/Globulin Ratio 1.1 02/07/18 15:16: PT 15.5 H, INR 1.35, APTT 29.8 - RAD Interpretation Radiology Orders: 02/07/18 14:51 ABD & PELVIS W/O PO OR IV CONT [CT] Stat Disposition/Present on Arrival - Present on Arrival Any Indicators Present on Arrival: Yes History of DVT/PE: No History of Uncontrolled Diabetes: No Urinary Catheter: Yes History of Decub. Ulcer: No History Surgical Site Infection Following: None - Disposition Have Diagnosis and Disposition been Completed?: Yes Diagnosis: Hematuria, Fecal impaction Disposition: HOSPITALIZED Disposition Time: 18:06 Patient Plan: Observation Patient Problems: Current Active Problems Problem Status Onset Fecal impaction Acute Hematuria Acute Condition: FAIR Forms: [employer] (Greek)
[2018-02-07 17:30] LABS: URINE APPEARANCE CLOUDY (CLEAR); URINE COLOR BROWN (YELLOW)
[2018-02-07 17:38] LABS: URINE BACTERIA LARGE (NEG); URINE RBC TNTC /hpf (0-2); URINE WBC TNTC /hpf (0-6)
[2018-02-07] MEDS ORDERED: cefTRIAXone 1 gm 1 GM/100 ML BAG IVPB STA (18:39)
--- NOTE | 2018-02-07 20:06 | CP.PCM.HP ---
<Aureliano Viera - Last Filed: 02/07/18 22:36> History of Present Illness - History of Present Illness History of Present Illness: HISTORY & PHYSICAL NOTE FOR HOSPITALIST TEAM Aureliano Viera PGY1 37 y/o M with PMHx of Multiple CVAs, factor V leiden, ESRD on HD MWF, DM1 with neuropathy, retinopathy, neurogenic bladder w/ lópez, HTN, hypothyroid, anxiety, Hx of [place] presents to [facility] today after he woke up with 250 cc of gross blood noted in his lópez bag after recent lópez placement. He has visiting nurse who come to his house and place the lópez. He had not noticed blood when the lópez was inserted, but rather the next morning. He reports having diarrhea for the past 2 days. Pts caregiver reports pt had a systolic BP at home of 66 and brought him to ED. Per ED vitals, systolic BP was 88/50 in ED which subsequently increased to 120s/60s. Upon interview, 12 point ROS is negative. PMD: Dr. Wakefield Medical History: Multiple CVAs, Chronic Kidney Disease, DM Type 1 with neuropathy, Diabetic retinopathy, Neurogenic bladder with lópez, HTN, hypothyroid, anxiety, Hx of [place] Surgical History: Left eye surgery; Bladder pacemaker Medications: See MAR Allergies: Sulfamethoxazole, trimethoprim Family History: Diabetes Mellitus, COPD, Anxiety Social History: Denies alcohol, tobacco, drug use; patient is bed bound, uses a wheelchair; patient has a home health aid Present on Admission - Present on Admission Any Indicators Present on Admission: Yes Urinary Catheter: Yes Review of Systems - Review of Systems Review of Systems: per HPI Past Patient History - Infectious Disease Hx of Infectious Diseases: None - Tetanus Immunizations Tetanus Immunization: Unknown - Past Medical History & Family History Past Medical History?: Yes - Past Social History Smoking Status: Never Smoked - CARDIAC Hx Hypertension: Yes - PULMONARY Hx Asthma: No Hx Bronchitis: No Hx Chronic Obstructive Pulmonary Disease (COPD): No Hx Emphysema: No Hx Pneumonia: No Hx Sleep Apnea: No - NEUROLOGICAL HX Cerebrovascular Accident: Yes Hx Transient Ischemic Attacks (TIA): Yes - HEENT Hx HEENT Problems: Yes (wears glasses, recent vision loss due to cva) Hx Blind: No Hx Deafness: No Hx Difficulty Chewing: No Hx Epistaxis: No Hx Glaucoma: No Other/Comment: BLURRY VISION. diabetic retinopathy - RENAL Hx Chronic Kidney Disease: Yes ("interstem, 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") Hx Dialysis: Yes Type of Dialysis Access: L av shunt, R chest udall Date of Last Dialysis Treatment: 02/06/18 Hx Renal Failure: Yes - ENDOCRINE/METABOLIC Hx Diabetes Mellitus Type 1: Yes Hx Hypothyroidism: Yes - HEMATOLOGICAL/ONCOLOGICAL Hx Anemia: No - INTEGUMENTARY Hx Dermatological Problems: No Hx Basil Cell: No Hx Eczema: No Hx Melanoma: No Hx Psoriasis: No Hx Squamous Cell: No - MUSCULOSKELETAL/RHEUMATOLOGICAL Hx Fractures: Yes (FX BOTH FOOT,FINGERS,ROTATOR CUFF -SPORTS RELATED) - GASTROINTESTINAL Hx Gastrointestinal Disorders: Yes (colitis) - GENITOURINARY/GYNECOLOGICAL Hx Genitourinary Disorders: Yes (chronic indwelling lópez) Hx Incontinence: Yes Hx Urinary Tract Infection: Yes (multiple, MRSA) - PSYCHIATRIC Hx Anxiety: Yes Hx Depression: No Hx Substance Use: No - SURGICAL HISTORY Hx Coronary Stent: No - ANESTHESIA Hx Anesthesia: Yes Hx Anesthesia Reactions: No Hx Malignant Hyperthermia: No Meds Allergies/Adverse Reactions: Allergies Allergy/AdvReac Type Severity Reaction Status Date / Time sulfamethoxazole Allergy ANAPHYLAXIS Verified 02/07/18 21:10 [From Bactrim] trimethoprim [From Bactrim] Allergy ANAPHYLAXIS Verified 02/07/18 21:10 Physical Exam - Constitutional Appears: Well, Non-toxic, No Acute Distress - Head Exam Head Exam: NORMAL INSPECTION, NORMOCEPHALIC - Eye Exam Eye Exam: EOMI, Normal appearance - ENT Exam ENT Exam: Mucous Membranes Moist - Neck Exam Neck exam: Positive for: Normal Inspection - Respiratory Exam Respiratory Exam: Clear to Auscultation Bilateral, NORMAL BREATHING PATTERN - Cardiovascular Exam Cardiovascular Exam: REGULAR RHYTHM, +S2 - GI/Abdominal Exam GI & Abdominal Exam: Soft. absent: Tenderness - Exam Additional comments: lópez in place. No signs of overt bleeding - Extremities Exam Extremities exam: Positive for: normal inspection. Negative for: calf ten derness - Back Exam Back exam: NORMAL INSPECTION - Neurological Exam Neurological exam: Alert, Oriented x3 - Psychiatric Exam Psychiatric exam: Normal Affect, Normal Mood - Skin Skin Exam: Dry, Intact, Warm Results - Vital Signs Recent Vital Signs: Last Vital Signs Temp 98.6 F 02/07/18 14:22 Pulse 74 02/07/18 19:04 Resp 17 02/07/18 19:04 BP 126/76 02/07/18 19:04 Pulse Ox 95 02/07/18 19:04 - Labs Result Diagrams: 02/07/18 15:16 02/07/18 15:16 Labs: Laboratory Results - last 24 hr 02/07/18 02/07/18 02/07/18 15:16 15:16 15:16 WBC 9.5 RBC 3.20 L Hgb 9.7 L Hct 30.9 L MCV 96.6 D MCH 30.3 MCHC 31.4 RDW 15.3 H Plt Count 247 MPV 9.6 Gran % 71.0 H Lymph % (Auto) 13.9 L Winn % (Auto) 13.4 H Eos % (Auto) 1.4 L Baso % (Auto) 0.3 Gran # 6.77 H Lymph # (Auto) 1.3 Winn # (Auto) 1.3 H Eos # (Auto) 0.1 Baso # (Auto) 0.03 PT 15.5 H INR 1.35 APTT 29.8 Sodium 137 Potassium 4.6 Chloride 94 L Carbon Dioxide 31 Anion Gap 18 BUN 52 H Creatinine 6.0 H Est GFR ( Amer) 13 Est GFR (Non-Af Amer) 11 Random Glucose 135 H Calcium 9.0 Total Bilirubin 1.1 AST 35 ALT 47 Alkaline Phosphatase 125 Total Protein 7.4 Albumin 4.0 Globulin 3.4 Albumin/Globulin Ratio 1.1 Urine Color Urine Appearance Urine pH Ur Specific [place] Urine Protein Urine Glucose (UA) Urine Ketones Urine Blood Urine Nitrate Urine Bilirubin Urine Urobilinogen Ur Leukocyte Esterase Urine RBC Urine WBC Ur Epithelial Cells Urine Bacteria Blood Type Antibody Screen BBK History Checked 02/07/18 02/07/18 15:16 17:24 WBC RBC Hgb Hct MCV MCH MCHC RDW Plt Count MPV Gran % Lymph % (Auto) Winn % (Auto) Eos % (Auto) Baso % (Auto) Gran # Lymph # (Auto) Winn # (Auto) Eos # (Auto) Baso # (Auto) PT INR APTT Sodium Potassium Chloride Carbon Dioxide Anion Gap BUN Creatinine Est GFR ( Amer) Est GFR (Non-Af Amer) Random Glucose Calcium Total Bilirubin AST ALT Alkaline Phosphatase Total Protein Albumin Globulin Albumin/Globulin Ratio Urine Color Brown Urine Appearance Cloudy Urine pH 7.0 Ur Specific [place] 1.025 Urine Protein >=300 H Urine Glucose (UA) Negative Urine Ketones Trace H Urine Blood Large H Urine Nitrate Positive H Urine Bilirubin Large H Urine Urobilinogen 1.0 H Ur Leukocyte Esterase Large H Urine RBC Tntc Urine WBC Tntc Ur Epithelial Cells None Urine Bacteria Large Blood Type A POSITIVE Antibody Screen Negative BBK History Checked Patient has bt Assessment & Plan - Assessment and Plan (Free Text) Assessment: 37 y/o M with PMHx of Multiple CVAs, factor V leiden, ESRD on HD MWF, DM1 with neuropathy, retinopathy, neurogenic bladder w/ lópez, HTN, hypothyroid, anxiety, Hx of [place] presents with hematuria post lópez catheter placement Plan: Hematuria indwelling lópez in place, no signs of overt bleeding H/H stable vitals stable appreciate urology recs f/u urine culture repeat cbc in am Urology consulted, NPO past midnight Rectal impaction Colace Miralax Sennakot tap water enema Hx of ESRD HD on MWF Nephrology on consult continue home renal medications Hx of CVA aspirin atorvastatin Hx of factor V leiden continue eliquis 2.5mg Hx of [place] hold anti-hypertensives atorvastatin isordil aspirin Hx of DM1 Insulin regular/detemir Gabapentin for neuropathy Hx of anxiety home zolpidem DVT/GI: Eliquis/protonix Case seen, examined and discussed with attending physician, Dr. Vaughn <Vilma Vaughn - Last Filed: 02/08/18 06:44> Results - Vital Signs Recent Vital Signs: Last Vital Signs Temp 99 F 02/07/18 22:24 Pulse 84 02/07/18 22:24 Resp 18 02/07/18 22:24 BP 153/81 H 02/07/18 22:24 Pulse Ox 97 02/07/18 22:24 - Labs Result Diagrams: 02/07/18 15:16 02/07/18 15:16 Labs: Laboratory Results - last 24 hr 02/07/18 02/07/18 02/07/18 15:16 15:16 15:16 WBC 9.5 RBC 3.20 L Hgb 9.7 L Hct 30.9 L MCV 96.6 D MCH 30.3 MCHC 31.4 RDW 15.3 H Plt Count 247 MPV 9.6 Gran % 71.0 H Lymph % (Auto) 13.9 L Winn % (Auto) 13.4 H Eos % (Auto) 1.4 L Baso % (Auto) 0.3 Gran # 6.77 H Lymph # (Auto) 1.3 Winn # (Auto) 1.3 H Eos # (Auto) 0.1 Baso # (Auto) 0.03 PT 15.5 H INR 1.35 APTT 29.8 Sodium 137 Potassium 4.6 Chloride 94 L Carbon Dioxide 31 Anion Gap 18 BUN 52 H Creatinine 6.0 H Est GFR ( Amer) 13 Est GFR (Non-Af Amer) 11 POC Glucose (mg/dL) Random Glucose 135 H Calcium 9.0 Total Bilirubin 1.1 AST 35 ALT 47 Alkaline Phosphatase 125 Total Protein 7.4 Albumin 4.0 Globulin 3.4 Albumin/Globulin Ratio 1.1 Urine Color Urine Appearance Urine pH Ur Specific [place] Urine Protein Urine Glucose (UA) Urine Ketones Urine Blood Urine Nitrate Urine Bilirubin Urine Urobilinogen Ur Leukocyte Esterase Urine RBC Urine WBC Ur Epithelial Cells Urine Bacteria Blood Type Antibody Screen BBK History Checked 02/07/18 02/07/18 02/07/18 15:16 17:24 19:47 WBC RBC Hgb Hct MCV MCH MCHC RDW Plt Count MPV Gran % Lymph % (Auto) Winn % (Auto) Eos % (Auto) Baso % (Auto) Gran # Lymph # (Auto) Winn # (Auto) Eos # (Auto) Baso # (Auto) PT INR APTT Sodium Potassium Chloride Carbon Dioxide Anion Gap BUN Creatinine Est GFR ( Amer) Est GFR (Non-Af Amer) POC Glucose (mg/dL) 101 Random Glucose Calcium Total Bilirubin AST ALT Alkaline Phosphatase Total Protein Albumin Globulin Albumin/Globulin Ratio Urine Color Brown Urine Appearance Cloudy Urine pH 7.0 Ur Specific [place] 1.025 Urine Protein >=300 H Urine Glucose (UA) Negative Urine Ketones Trace H Urine Blood Large H Urine Nitrate Positive H Urine Bilirubin Large H Urine Urobilinogen 1.0 H Ur Leukocyte Esterase Large H Urine RBC Tntc Urine WBC Tntc Ur Epithelial Cells None Urine Bacteria Large Blood Type A POSITIVE Antibody Screen Negative BBK History Checked Patient has bt 02/07/18 21:55 WBC RBC Hgb Hct MCV MCH MCHC RDW Plt Count MPV Gran % Lymph % (Auto) Winn % (Auto) Eos % (Auto) Baso % (Auto) Gran # Lymph # (Auto) Winn # (Auto) Eos # (Auto) Baso # (Auto) PT INR APTT Sodium Potassium Chloride Carbon Dioxide Anion Gap BUN Creatinine Est GFR ( Amer) Est GFR (Non-Af Amer) POC Glucose (mg/dL) 206 H Random Glucose Calcium Total Bilirubin AST ALT Alkaline Phosphatase Total Protein Albumin Globulin Albumin/Globulin Ratio Urine Color Urine Appearance Urine pH Ur Specific [place] Urine Protein Urine Glucose (UA) Urine Ketones Urine Blood Urine Nitrate Urine Bilirubin Urine Urobilinogen Ur Leukocyte Esterase Urine RBC Urine WBC Ur Epithelial Cells Urine Bacteria Blood Type Antibody Screen BBK History Checked Attending/Attestation - Attestation I have personally seen and examined this patient.: Yes I have fully participated in the care of the patient.: Yes I have reviewed all pertinent clinical information: Yes
[2018-02-07] MEDS: POLYETHYLENE GLYCOL 3350 17 GM/Dose PACKET PO SCH (22:01)
[2018-02-07] MEDS: Docusate-Senna 50 mg-8.6 mg Tab PO SCH (22:02)
[2018-02-07] MEDS: Insulin Detemir 100 units/ml Vial (Levemir) SC SCH (22:52)
[2018-02-08] MEDS: Pantoprazole 40 mg EC Tab PO SCH (05:00)
[2018-02-08] MEDS: Levothyroxine 175 MCG TAB PO SCH (06:32)
[2018-02-08 07:05] LABS: BASO # 0.05 K/mm3 (0.0-2.0); BASO % 0.6 % (0.0-3.0); EOS # 0.2 (0.0-0.7); EOS % 2.7 % (1.5-5.0); GRAN # 5.4 (1.4-6.5); GRAN % 66.7 % (50.0-68.0); LYMPH # 1.5 (1.2-3.4); MEAN CELL VOLUME 94.3 fl (80.0-105.0); MEAN CORPUSCULAR HEMOGLOBIN 30.2 pg (25.0-35.0); MEAN PLATELET VOLUME 9.8 fl (7.0-11.0); MONO # 0.9 (0.1-0.6); RBC 2.98 10^6/uL (3.5-6.1); RED CELL DISTRIBUTION WIDTH 14.9 % (11.5-14.5); WHITE BLOOD COUNT 8.1 10^3/uL (4.5-11.0)
[2018-02-08 07:22] LABS: ALB/GLOB RATIO 1.1 (1.1-1.8); ALBUMIN 3.6 g/dL (3.0-4.8); CALCIUM 8.6 mg/dL (8.4-10.5)
--- NOTE | 2018-02-08 07:45 | CP.PCM.PN ---
<Aureliano Viera - Last Filed: 02/08/18 17:28> Subjective - Date & Time of Evaluation Date of Evaluation: 02/08/18 Time of Evaluation: 07:43 - Subjective Subjective: INTERNAL MEDICINE PROGRESS NOTE FOR DR. GLORIA Viera PGY1 Pt seen and examined at bedside this am. No acute complaints overnight. He is tolerating his diet well. He is resting comfortably. 12 point ROS is negative Objective - Vital Signs/Intake and Output Vital Signs (last 24 hours): Temp Pulse Resp BP Pulse Ox 99 F 84 18 153/81 H 97 02/07/18 22:24 02/07/18 22:24 02/07/18 22:24 02/07/18 22:24 02/07/18 22:24 Intake and Output: 02/08/18 02/08/18 06:59 18:59 Intake Total 240 Output Total 75 Balance 165 - Medications Medications: Current Medications Apixaban (Eliquis) 2.5 mg PO BID [facility]; Protocol Atorvastatin Calcium (Lipitor) 80 mg PO HS [facility] Calcitriol (Rocaltrol) 0.5 mcg PO DAILY [facility] Docusate Sodium (Colace) 100 mg PO DAILY [facility] Duloxetine HCl (Cymbalta) 30 mg PO DAILY [facility] Ergocalciferol (Drisdol 50,000 Intl Units Cap) 1 cap PO QWK [facility] Gabapentin (Neurontin) 100 mg PO TID [facility]; Protocol Insulin Detemir (Levemir) 15 unit SC [facility] Last Admin: 02/07/18 22:52 Dose: 15 u Insulin Human Regular (Humulin R) 7 units SC AC [facility]; Protocol Isosorbide Dinitrate (Isordil) 20 mg PO DAILY [facility] Levothyroxine Sodium (Synthroid) 175 mcg PO DAILY@0630 [facility] Last Admin: 02/08/18 06:32 Dose: 175 mcg Non-Formulary Medication (Linaclotide [Linzess]) 145 mcg PO DAILY [facility] Pantoprazole Sodium (Protonix Ec Tab) 40 mg PO 0600 [facility] Last Admin: 02/08/18 05:00 Dose: 40 mg Polyethylene Glycol (Miralax) 17 gm PO BID [facility] Last Admin: 02/07/18 22:01 Dose: 17 gm Senna/Docusate Sodium (Senokot S 50 Mg-8.6 Mg) 1 tab PO BID [facility] Last Admin: 02/07/18 22:02 Dose: 1 tab Sevelamer HCl (Renagel) 800 mg PO WM [facility] Vitamin B Complex/Vit C/Folic Acid (Nephro-Devi) 1 tab PO DAILY [facility] Zolpidem Tartrate (Ambien) 10 mg PO HS PRN; Protocol PRN Reason: Insomnia - Labs Labs: 02/08/18 06:20 02/08/18 06:20 PT 15.5 SECONDS (9.4-12.5) H 02/07/18 15:16 INR 1.35 02/07/18 15:16 APTT 29.8 Seconds (25.1-36.5) 02/07/18 15:16 - Additional Findings Additional findings: - Constitutional Appears: Well, Non-toxic, No Acute Distress - Head Exam Head Exam: NORMAL INSPECTION, NORMOCEPHALIC - Eye Exam Eye Exam: EOMI, Normal appearance - ENT Exam ENT Exam: Mucous Membranes Moist - Neck Exam Neck Exam: Normal Inspection - Respiratory Exam Respiratory Exam: Clear to Ausculation Bilateral, NORMAL BREATHING PATTERN - Cardiovascular Exam Cardiovascular Exam: REGULAR RHYTHM, +S1, +S2 - GI/Abdominal Exam Additional comments: [id number] hard abscess noted in L groin region. Very tender to palpation - Extremities Exam Additional comments: Dressing in place along L hip - Back Exam Back Exam: NORMAL INSPECTION - Neurological Exam Neurological Exam: Alert, Awake, Oriented x3 - Psychiatric Exam Psychiatric exam: Normal Affect, Normal Mood - Skin Skin Exam: Dry, Intact, Warm Assessment and Plan - Assessment and Plan (Free Text) Assessment: 37 y/o M with PMHx of Multiple CVAs, factor V leiden, ESRD on HD MWF, DM1 with neuropathy, retinopathy, neurogenic bladder w/ lópez, HTN, hypothyroid, anxiety, Hx of [place] presents with hematuria post lópez catheter placement Plan: Hematuria indwelling lópez in place, no signs of overt bleeding. López bag draining dark brown urine, with pus noted in lópez tube H/H stable, vitals stable start cefepime for UTI appreciate urology recs repeat cbc in am Urology consulted, NPO past midnight Rectal impaction Colace Miralax Sennakot tap water enema Hx of ESRD HD on MWF HD today Nephrology on consult continue home renal medications Hx of CVA aspirin atorvastatin Hx of factor V leiden continue eliquis 2.5mg Hx of [place] hold anti-hypertensives d/t hypotension atorvastatin isordil aspirin Hx of DM1 Insulin regular/detemir Gabapentin for neuropathy Hx of anxiety home zolpidem DVT/GI: continue Eliquis/protonix Case seen, examined and discussed with attending physician, Dr Dwyer <Ector Dwyer - Last Filed: 02/09/18 14:56> Objective - Vital Signs/Intake and Output Vital Signs (last 24 hours): Temp Pulse Resp BP Pulse Ox 98.5 F 70 18 168/88 H 96 02/09/18 07:00 02/09/18 07:00 02/09/18 07:00 02/09/18 12:24 02/09/18 07:00 Intake and Output: 02/09/18 02/09/18 06:59 18:59 Intake Total 460 Output Total 20 Balance 440 - Medications Medications: Current Medications Apixaban (Eliquis) 2.5 mg PO BID [facility]; Protocol Last Admin: 02/09/18 09:33 Dose: 2.5 mg Atorvastatin Calcium (Lipitor) 80 mg PO HS [facility] Last Admin: 02/08/18 22:23 Dose: 80 mg Calcitriol (Rocaltrol) 0.5 mcg PO DAILY [facility] Last Admin: 02/09/18 09:37 Dose: 0.5 mcg Darbepoetin Riccardo (Aranesp) 60 mcg IVP QWK [facility] Last Admin: 02/08/18 14:22 Dose: 60 mcg Docusate Sodium (Colace) 100 mg PO DAILY [facility] Last Admin: 02/09/18 09:33 Dose: 100 mg Duloxetine HCl (Cymbalta) 30 mg PO DAILY [facility] Last Admin: 02/09/18 09:33 Dose: 30 mg Furosemide (Lasix) 40 mg PO TTS [facility] Last Admin: 02/09/18 12:24 Dose: 40 mg Gabapentin (Neurontin) 100 mg PO TID [facility]; Protocol Last Admin: 02/09/18 13:44 Dose: 100 mg Hydromorphone HCl (Dilaudid) 2 mg PO DAILY [facility] Last Admin: 02/09/18 10:00 Dose: Not Given Cefepime HCl 0.5 gm/ Sodium (Chloride) 100 mls @ 100 mls/hr IVPB Q24H [facility]; Protocol Last Admin: 02/09/18 12:19 Dose: 100 mls/hr Insulin Detemir (Levemir) 15 unit SC [facility] Last Admin: 02/09/18 09:35 Dose: 15 units Insulin Human Regular (Humulin R) 7 units SC [facility]; Protocol Last Admin: 02/09/18 12:24 Dose: 7 units Isosorbide Dinitrate (Isordil) 20 mg PO DAILY [facility] Last Admin: 02/09/18 09:40 Dose: Not Given Lactulose (Enulose) 20 gm PO Q6 [facility] Levothyroxine Sodium (Synthroid) 175 mcg PO DAILY@0630 [facility] Last Admin: 02/09/18 06:24 Dose: 175 mcg Losartan Potassium (Cozaar) 50 mg PO QPM [facility] Mineral Oil (Fleet Mineral Oil Enema) 135 ml RC ONCE ONE Stop: 02/09/18 14:48 Non-Formulary Medication (Linaclotide [Linzess]) 145 mcg PO DAILY [facility] Last Admin: 02/09/18 09:36 Dose: Not Given Pantoprazole Sodium (Protonix Ec Tab) 40 mg PO 0600 [facility] Last Admin: 02/09/18 06:24 Dose: 40 mg Polyethylene Glycol (Miralax) 17 gm PO BID [facility] Last Admin: 02/09/18 09:36 Dose: 17 gm Senna/Docusate Sodium (Senokot S 50 Mg-8.6 Mg) 1 tab PO BID [facility] Last Admin: 02/09/18 09:37 Dose: 1 tab Sevelamer HCl (Renagel) 800 mg PO WM [facility] Last Admin: 02/09/18 12:24 Dose: 800 mg Vitamin B Complex/Vit C/Folic Acid (Nephro-Devi) 1 tab PO DAILY [facility] Last Admin: 02/09/18 09:36 Dose: 1 tab Zolpidem Tartrate (Ambien) 10 mg PO HS PRN; Protocol PRN Reason: Insomnia Last Admin: 02/08/18 22:23 Dose: 10 mg - Labs Labs: 02/09/18 06:30 02/09/18 06:30 PT 15.5 SECONDS (9.4-12.5) H 02/07/18 15:16 INR 1.35 02/07/18 15:16 APTT 29.8 Seconds (25.1-36.5) 02/07/18 15:16 Attending/Attestation - Attestation I have personally seen and examined this patient.: Yes I have fully participated in the care of the patient.: Yes I have reviewed all pertinent clinical information, including history, physical exam and plan: Yes Notes (Text): 02/09/18 14:51 Attending note; Patient seen and examined with resident. Patient is alert and awake. Denies any fevers, chills. Denies any urinary symptoms. Patient has chronic indwelling López catheter. He has chronic constipation. Patient is bedridden. not In any acute distress. Patient is a 37 year old male with PMHx of Multiple CVAs, factor V leiden, ESRD on dialysis MWF, DM1 with neuropathy, retinopathy, neurogenic bladder w/ lópez, HTN, hypothyroid, anxiety is admitted for hematuria and increased urinary sediment seen in López catheter. 1. Hematuria; after changing López catheter. Currently resolved. Has dark urine in the back. No bleeding noted. UA is positive. Culture is pending. Started on cefepime. 2. End-stage renal disease; continue hemodialysis via right IJ catheter. Nephrology evaluation appreciated. 3. Diabetic neuropathy and retinopathy. Continue levemir and Regular Insulin sliding scale. 4. Neurogenic bladder; with chronic indwelling López. 5. Chronic constipation; continue lactulose. Enema as needed. Patient has chronic rectal wall thickening due to chronic constipation. Needs GI workup as outpatient. 6. Bedridden. Follow-up culture results. Upon discharge the patient will follow-up with PMD Dr. Wakefield.
[2018-02-08] MEDS ORDERED: Pantoprazole 40 mg EC Tab PO SCH (10:00)
[2018-02-08] MEDS: Docusate-Senna 50 mg-8.6 mg Tab PO SCH ×2 (10:36→20:10)
[2018-02-08] MEDS: Multivitamin Vitamin B Complex (Nephro-Vite) Tab PO SCH (10:36)
[2018-02-08] MEDS: POLYETHYLENE GLYCOL 3350 17 GM/Dose PACKET PO SCH ×2 (10:36→20:10)
[2018-02-08] MEDS: Insulin Detemir 100 units/ml Vial (Levemir) SC SCH ×2 (10:37→22:23)
[2018-02-08] MEDS: Insulin Regular 1 UNITS/0.01 ML ML SC SCH ×3 (10:37→20:37)
[2018-02-08] MEDS: Cefepime 0.5 GM in Sodium Chloride 0.9% 100 ML IVPB SCH (12:25)
[2018-02-08] MEDS ORDERED: Darbepoetin Alfa 60 mcg/ml Inj IVP SCH (13:00)
--- NOTE | 2018-02-08 13:46 | CP.PCM.CON ---
History of Present Illness - History of Present Illness History of Present Illness: Nephrology Consultation Note: Assessment: Stable gross hematuria ? UTI Diabetic chronic Kidney Disease (E11.22) Hypertensive Chronic Kidney Disease (I12.0) End stage renal disease (N18.6) dependence on hemodialysis (Z99.2) (MWF) via PC Anemia (D64.9), Hyperphosphatemia (E83.39), Secondary Hyperparathyroidism ( E21.1), HTN (I12.0) Obesity, Multiple CVAs, factor V leiden, neurogenic bladder w/ lópez, hypothyroid, anxiety, Hx of MD Plan: Will plan for HD today as ordered. Continue with Nephrovite 1 tab/day. PRBC as needed for anemia. on LEONARD with dialysis as last Hb 9 Continue with phos binders, last phos level 5.7 Continue with calcitriol. BP on low side, meds on hold for now Glycemic control, Dialysis consistent diet Further work up/management as per primary team Dose meds/antibiotics (if needed) for ESRD status. Avoid fleets enema/magnesium based laxatives. evaluation Thanks for allowing me to participate in care of your patient. Will follow patient with you. Please call if any Qs. Dr Artis Mendoza Office: [phone] Chief Complaint; blood in urine HPI: Pt is a 37 M with hx of ESRD on hemodialysis (MWF) via PC , last dialysis wed, chronic anemia, hyperphosphatemia, secondary hyperparathyroidism, Diabetes Mellitus, hypertension, Multiple CVAs, factor V leiden, neurogenic bladder w/ lópez, hypothyroid, anxiety, Hx of MD, obesity presented with complaints of blood in urine and low BP. besides that he feels in usual health. no SOB/CP/fever/chills Renal consult requested for ESRD management. ROS: Cardiovascular: No chest pain. Pulmonary: No shortness of breath Gastrointestinal: denies abdominal pain No nausea. No vomiting. Genitourinary: No pain while urinating. c/o blood in urine. has chronic lópez All other negative except as mentioned in HPI Physical Examination: General Appearance: Comfortable, in no acute respiratory distress, co-operative . obese Vitals reviewed and noted as below Head; Atraumatic, normocephalic ENT: no ulcers no thrush. Tongue is midline. Oropharynx: no rash or ulcers. EYES: Pupils are equal, round and reactive to light accommodation. Eye muscles and extraocular movement intact. Sclera is anicteric. he is visually impared Neck; supple no lymphadenopathy, no thyromegaly or bruit Lungs: Normal respiratory rate/effort. Breath sounds bilateral equal and clear Heart: Normal rate. s1s2 normal. No rub or gallop. Extremities: no edema. No varicose veins Neurological: Patient is alert, awake and oriented to person, place and time. chronic lower ext weakness. Skin: Warm and dry. Normal turgor. No rash. Palpitation: Normal elasticity for age Abdomen: Abdomen is soft. Bowel sounds +. There is no abdominal tenderness, no guarding/rigidity or organomegaly Psych: normal insight and normal affect/mood MSK: no joint tenderness or swelling. Digits and nails normal, no deformity : kidney or bladder not palpable. has lópez draining hemorrhagic urine Access: PC. AVF maturing. Labs/imaging reviewed. Past medical history, past surgical history, family history, social history, al kamila reviewed and noted as below Family Hx: no hx of CKD. Non contributory Past Patient History - Infectious Disease Hx of Infectious Diseases: None - Tetanus Immunizations Tetanus Immunization: Unknown - Past Medical History & Family History Past Medical History?: Yes - Past Social History Smoking Status: Never Smoked - CARDIAC Hx Hypertension: Yes - PULMONARY Hx Asthma: No Hx Bronchitis: No Hx Chronic Obstructive Pulmonary Disease (COPD): No Hx Emphysema: No Hx Pneumonia: No Hx Sleep Apnea: No - NEUROLOGICAL HX Cerebrovascular Accident: Yes Hx Transient Ischemic Attacks (TIA): Yes - HEENT Hx HEENT Problems: Yes (wears glasses, recent vision loss due to cva) Hx Blind: No Hx Deafness: No Hx Difficulty Chewing: No Hx Epistaxis: No Hx Glaucoma: No Other/Comment: BLURRY VISION. diabetic retinopathy - RENAL Hx Chronic Kidney Disease: Yes ("interstem, 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") Hx Dialysis: Yes Type of Dialysis Access: L av shunt, R chest udall Date of Last Dialysis Treatment: 02/06/18 Hx Renal Failure: Yes - ENDOCRINE/METABOLIC Hx Diabetes Mellitus Type 1: Yes Hx Hypothyroidism: Yes - HEMATOLOGICAL/ONCOLOGICAL Hx Anemia: No - INTEGUMENTARY Hx Dermatological Problems: No Hx Basil Cell: No Hx Eczema: No Hx Melanoma: No Hx Psoriasis: No Hx Squamous Cell: No - MUSCULOSKELETAL/RHEUMATOLOGICAL Hx Fractures: Yes (FX BOTH FOOT,FINGERS,ROTATOR CUFF -SPORTS RELATED) - GASTROINTESTINAL Hx Gastrointestinal Disorders: Yes (colitis) - GENITOURINARY/GYNECOLOGICAL Hx Genitourinary Disorders: Yes (chronic indwelling lópez) Hx Incontinence: Yes Hx Urinary Tract Infection: Yes (multiple, MRSA) - PSYCHIATRIC Hx Anxiety: Yes Hx Depression: No Hx Substance Use: No - SURGICAL HISTORY Hx Coronary Stent: No - ANESTHESIA Hx Anesthesia: Yes Hx Anesthesia Reactions: No Hx Malignant Hyperthermia: No Meds Allergies/Adverse Reactions: Allergies Allergy/AdvReac Type Severity Reaction Status Date / Time sulfamethoxazole Allergy ANAPHYLAXIS Verified 02/07/18 21:10 [From Bactrim] trimethoprim [From Bactrim] Allergy ANAPHYLAXIS Verified 02/07/18 21:10 - Medications Medications: Current Medications Apixaban (Eliquis) 2.5 mg PO BID [facility]; Protocol Last Admin: 02/08/18 10:36 Dose: 2.5 mg Atorvastatin Calcium (Lipitor) 80 mg PO [facility] Calcitriol (Rocaltrol) 0.5 mcg PO DAILY [facility] Last Admin: 02/08/18 10:36 Dose: 0.5 mcg Darbepoetin Riccardo (Aranesp) 60 mcg IVP QWK [facility] Docusate Sodium (Colace) 100 mg PO DAILY [facility] Last Admin: 02/08/18 10:36 Dose: 100 mg Duloxetine HCl (Cymbalta) 30 mg PO DAILY [facility] Last Admin: 02/08/18 10:36 Dose: 30 mg Gabapentin (Neurontin) 100 mg PO TID [facility]; Protocol Last Admin: 02/08/18 10:37 Dose: 100 mg Cefepime HCl 0.5 gm/ Sodium (Chloride) 100 mls @ 100 mls/hr IVPB Q24H [facility]; Protocol Insulin Detemir (Levemir) 15 unit SC [facility] Last Admin: 02/08/18 10:37 Dose: Not Given Insulin Human Regular (Humulin R) 7 units SC AC [facility]; Protocol Last Admin: 02/08/18 10:37 Dose: Not Given Isosorbide Dinitrate (Isordil) 20 mg PO DAILY [facility] Last Admin: 02/08/18 10:37 Dose: 20 mg Levothyroxine Sodium (Synthroid) 175 mcg PO DAILY@0630 [facility] Last Admin: 02/08/18 06:32 Dose: 175 mcg Non-Formulary Medication (Linaclotide [Linzess]) 145 mcg PO DAILY [facility] Pantoprazole Sodium (Protonix Ec Tab) 40 mg PO 0600 [facility] Last Admin: 02/08/18 05:00 Dose: 40 mg Polyethylene Glycol (Miralax) 17 gm PO BID [facility] Last Admin: 02/08/18 10:36 Dose: Not Given Senna/Docusate Sodium (Senokot S 50 Mg-8.6 Mg) 1 tab PO BID [facility] Last Admin: 02/08/18 10:36 Dose: 1 tab Sevelamer HCl (Renagel) 800 mg PO WM [facility] Last Admin: 02/08/18 10:37 Dose: Not Given Vitamin B Complex/Vit C/Folic Acid (Nephro-Devi) 1 tab PO DAILY [facility] Last Admin: 02/08/18 10:36 Dose: 1 tab Zolpidem Tartrate (Ambien) 10 mg PO HS PRN; Protocol PRN Reason: Insomnia Results - Vital Signs Recent Vital Signs: Last Vital Signs Temp 100 F H 02/08/18 06:00 Pulse 87 02/08/18 06:00 Resp 20 02/08/18 06:00 BP 140/43 L 02/08/18 06:00 Pulse Ox 92 L 02/08/18 06:00 - Labs Result Diagrams: 02/08/18 06:20 02/08/18 06:20 Labs: Laboratory Results - last 24 hr 02/07/18 02/07/18 02/07/18 15:16 15:16 15:16 WBC 9.5 RBC 3.20 L Hgb 9.7 L Hct 30.9 L MCV 96.6 D MCH 30.3 MCHC 31.4 RDW 15.3 H Plt Count 247 MPV 9.6 Gran % 71.0 H Lymph % (Auto) 13.9 L [place] % (Auto) 13.4 H Eos % (Auto) 1.4 L Baso % (Auto) 0.3 Gran # 6.77 H Lymph # (Auto) 1.3 [place] # (Auto) 1.3 H Eos # (Auto) 0.1 Baso # (Auto) 0.03 PT 15.5 H INR 1.35 APTT 29.8 Sodium 137 Potassium 4.6 Chloride 94 L Carbon Dioxide 31 Anion Gap 18 BUN 52 H Creatinine 6.0 H Est GFR ( Amer) 13 Est GFR (Non-Af Amer) 11 POC Glucose (mg/dL) Random Glucose 135 H Calcium 9.0 Phosphorus Magnesium Total Bilirubin 1.1 AST 35 ALT 47 Alkaline Phosphatase 125 Total Protein 7.4 Albumin 4.0 Globulin 3.4 Albumin/Globulin Ratio 1.1 Urine Color Urine Appearance Urine pH Ur Specific [place] Urine Protein Urine Glucose (UA) Urine Ketones Urine Blood Urine Nitrate Urine Bilirubin Urine Urobilinogen Ur Leukocyte Esterase Urine RBC Urine WBC Ur Epithelial Cells Urine Bacteria Blood Type Antibody Screen BBK History Checked 02/07/18 02/07/18 02/07/18 15:16 17:24 19:47 WBC RBC Hgb Hct MCV MCH MCHC RDW Plt Count MPV Gran % Lymph % (Auto) [place] % (Auto) Eos % (Auto) Baso % (Auto) Gran # Lymph # (Auto) [place] # (Auto) Eos # (Auto) Baso # (Auto) PT INR APTT Sodium Potassium Chloride Carbon Dioxide Anion Gap BUN Creatinine Est GFR ( Amer) Est GFR (Non-Af Amer) POC Glucose (mg/dL) 101 Random Glucose Calcium Phosphorus Magnesium Total Bilirubin AST ALT Alkaline Phosphatase Total Protein Albumin Globulin Albumin/Globulin Ratio Urine Color Brown Urine Appearance Cloudy Urine pH 7.0 Ur Specific [place] 1.025 Urine Protein >=300 H Urine Glucose (UA) Negative Urine Ketones Trace H Urine Blood Large H Urine Nitrate Positive H Urine Bilirubin Large H Urine Urobilinogen 1.0 H Ur Leukocyte Esterase Large H Urine RBC Tntc Urine WBC Tntc Ur Epithelial Cells None Urine Bacteria Large Blood Type A POSITIVE Antibody Screen Negative BBK History Checked Patient has bt 02/07/18 02/08/18 02/08/18 21:55 06:20 06:20 WBC 8.1 RBC 2.98 L Hgb 9.0 L Hct 28.1 L MCV 94.3 MCH 30.2 MCHC 32.0 RDW 14.9 H Plt Count 232 MPV 9.8 Gran % 66.7 Lymph % (Auto) 19.0 L [place] % (Auto) 11.0 H Eos % (Auto) 2.7 Baso % (Auto) 0.6 Gran # 5.40 Lymph # (Auto) 1.5 [place] # (Auto) 0.9 H Eos # (Auto) 0.2 Baso # (Auto) 0.05 PT INR APTT Sodium 136 Potassium 4.3 Chloride 93 L Carbon Dioxide 32 Anion Gap 16 BUN 62 H Creatinine 6.5 H Est GFR ( Amer) 12 Est GFR (Non-Af Amer) 10 POC Glucose (mg/dL) 206 H Random Glucose 173 H Calcium 8.6 Phosphorus 5.7 H Magnesium 2.4 H Total Bilirubin 0.7 AST 31 ALT 51 Alkaline Phosphatase 114 Total Protein 6.9 Albumin 3.6 Globulin 3.3 Albumin/Globulin Ratio 1.1 Urine Color Urine Appearance Urine pH Ur Specific [place] Urine Protein Urine Glucose (UA) Urine Ketones Urine Blood Urine Nitrate Urine Bilirubin Urine Urobilinogen Ur Leukocyte Esterase Urine RBC Urine WBC Ur Epithelial Cells Urine Bacteria Blood Type Antibody Screen BBK History Checked 02/08/18 02/08/18 06:50 11:20 WBC RBC Hgb Hct MCV MCH MCHC RDW Plt Count MPV Gran % Lymph % (Auto) [place] % (Auto) Eos % (Auto) Baso % (Auto) Gran # Lymph # (Auto) [place] # (Auto) Eos # (Auto) Baso # (Auto) PT INR APTT Sodium Potassium Chloride Carbon Dioxide Anion Gap BUN Creatinine Est GFR ( Amer) Est GFR (Non-Af Amer) POC Glucose (mg/dL) 158 H 117 H Random Glucose Calcium Phosphorus Magnesium Total Bilirubin AST ALT Alkaline Phosphatase Total Protein Albumin Globulin Albumin/Globulin Ratio Urine Color Urine Appearance Urine pH Ur Specific [place] Urine Protein Urine Glucose (UA) Urine Ketones Urine Blood Urine Nitrate Urine Bilirubin Urine Urobilinogen Ur Leukocyte Esterase Urine RBC Urine WBC Ur Epithelial Cells Urine Bacteria Blood Type Antibody Screen BBK History Checked
[2018-02-08] MEDS: Non Formulary Medication (Linaclotide [Linzess] 145 MCG) PO SCH (20:12)
[2018-02-09] MEDS: Pantoprazole 40 mg EC Tab PO SCH (06:24)
[2018-02-09] MEDS: Levothyroxine 175 MCG TAB PO SCH (06:24)
[2018-02-09 07:14] LABS: ALB/GLOB RATIO 1.2 (1.1-1.8); ALBUMIN 4.2 g/dL (3.0-4.8); CALCIUM 9.1 mg/dL (8.4-10.5)
[2018-02-09 08:18] LABS: BASO # 0.06 K/mm3 (0.0-2.0); BASO % 0.8 % (0.0-3.0); EOS # 0.3 (0.0-0.7); EOS % 3.3 % (1.5-5.0); GRAN # 4.21 (1.4-6.5); HEMOGLOBIN 10.2 g/dL (14.0-18.0); LYMPH # 1.8 (1.2-3.4); MEAN CELL VOLUME 96.9 fl (80.0-105.0); MEAN CORPUSCULAR HEMOGLOBIN 31.2 pg (25.0-35.0); MEAN CORPUSCULAR HGB CONC 32.2 g/dl (31.0-37.0); MEAN PLATELET VOLUME 10.6 fl (7.0-11.0); MONO # 1.2 (0.1-0.6); MONO % 15.9 % (1.0-6.0); RBC 3.27 10^6/uL (3.5-6.1); RED CELL DISTRIBUTION WIDTH 14.8 % (11.5-14.5); WHITE BLOOD COUNT 7.5 10^3/uL (4.5-11.0)
[2018-02-09 08:37] VITALS: RESP 18
[2018-02-09] MEDS: Insulin Regular 1 UNITS/0.01 ML ML SC SCH ×3 (09:33→17:20)
[2018-02-09] MEDS: Insulin Detemir 100 units/ml Vial (Levemir) SC SCH ×2 (09:35→21:28)
[2018-02-09] MEDS: Non Formulary Medication (Linaclotide [Linzess] 145 MCG) PO SCH (09:36)
[2018-02-09] MEDS: POLYETHYLENE GLYCOL 3350 17 GM/Dose PACKET PO SCH ×2 (09:36→17:18)
[2018-02-09] MEDS: Multivitamin Vitamin B Complex (Nephro-Vite) Tab PO SCH (09:36)
[2018-02-09] MEDS: Docusate-Senna 50 mg-8.6 mg Tab PO SCH ×2 (09:37→17:17)
--- NOTE | 2018-02-09 12:07 | CP.PCM.PN ---
<Sharon Zimmerman - Last Filed: 02/09/18 12:00> Subjective - Date & Time of Evaluation Date of Evaluation: 02/09/18 Time of Evaluation: 12:00 - Subjective Subjective: PGY1 Progress Note for Dr. Dwyer Patient seen and examined at bedside this morning. No acute nursing events overnight. Patient denies bowel movement for a couple of days. Patient says that lactulose helps with constipation at home. 12 Point ROS otherwise unremarkable. Objective - Vital Signs/Intake and Output Vital Signs (last 24 hours): Temp Pulse Resp BP Pulse Ox 98.5 F 70 18 168/98 H 96 02/09/18 07:00 02/09/18 07:00 02/09/18 07:00 02/09/18 07:00 02/09/18 07:00 Intake and Output: 02/09/18 02/09/18 06:59 18:59 Intake Total 460 Output Total 20 Balance 440 - Medications Medications: Current Medications Apixaban (Eliquis) 2.5 mg PO BID [facility]; Protocol Last Admin: 02/09/18 09:33 Dose: 2.5 mg Atorvastatin Calcium (Lipitor) 80 mg PO HS [facility] Last Admin: 02/08/18 22:23 Dose: 80 mg Calcitriol (Rocaltrol) 0.5 mcg PO DAILY [facility] Last Admin: 02/09/18 09:37 Dose: 0.5 mcg Darbepoetin Riccardo (Aranesp) 60 mcg IVP QWK [facility] Last Admin: 02/08/18 14:22 Dose: 60 mcg Docusate Sodium (Colace) 100 mg PO DAILY [facility] Last Admin: 02/09/18 09:33 Dose: 100 mg Duloxetine HCl (Cymbalta) 30 mg PO DAILY [facility] Last Admin: 02/09/18 09:33 Dose: 30 mg Furosemide (Lasix) 40 mg PO TTS [facility] Gabapentin (Neurontin) 100 mg PO TID [facility]; Protocol Last Admin: 02/09/18 09:36 Dose: 100 mg Hydromorphone HCl (Dilaudid) 2 mg PO DAILY [facility] Last Admin: 02/08/18 20:28 Dose: 2 mg Cefepime HCl 0.5 gm/ Sodium (Chloride) 100 mls @ 100 mls/hr IVPB Q24H [facility]; Protocol Last Admin: 11/30/18 12:25 Dose: 100 mls/hr Insulin Detemir (Levemir) 15 unit SC [facility] Last Admin: 02/09/18 09:35 Dose: 15 units Insulin Human Regular (Humulin R) 7 units SC [facility]; Protocol Last Admin: 02/09/18 09:33 Dose: 7 units Isosorbide Dinitrate (Isordil) 20 mg PO DAILY [facility] Last Admin: 02/09/18 09:40 Dose: Not Given Lactulose (Enulose) 20 gm PO [facility] Levothyroxine Sodium (Synthroid) 175 mcg PO DAILY@0630 [facility] Last Admin: 02/09/18 06:24 Dose: 175 mcg Losartan Potassium (Cozaar) 50 mg PO QPM [facility] Non-Formulary Medication (Linaclotide [Linzess]) 145 mcg PO DAILY [facility] Last Admin: 02/09/18 09:36 Dose: Not Given Pantoprazole Sodium (Protonix Ec Tab) 40 mg PO 0600 [facility] Last Admin: 02/09/18 06:24 Dose: 40 mg Polyethylene Glycol (Miralax) 17 gm PO BID [facility] Last Admin: 02/09/18 09:36 Dose: 17 gm Senna/Docusate Sodium (Senokot S 50 Mg-8.6 Mg) 1 tab PO BID [facility] Last Admin: 02/09/18 09:37 Dose: 1 tab Sevelamer HCl (Renagel) 800 mg PO WM [facility] Last Admin: 02/09/18 09:39 Dose: 800 mg Vitamin B Complex/Vit C/Folic Acid (Nephro-Devi) 1 tab PO DAILY [facility] Last Admin: 02/09/18 09:36 Dose: 1 tab Zolpidem Tartrate (Ambien) 10 mg PO PRN; Protocol PRN Reason: Insomnia Last Admin: 02/08/18 22:23 Dose: 10 mg - Labs Labs: 02/09/18 06:30 02/09/18 06:30 PT 15.5 SECONDS (9.4-12.5) H 02/07/18 15:16 INR 1.35 02/07/18 15:16 APTT 29.8 Seconds (25.1-36.5) 02/07/18 15:16 - Additional Findings Additional findings: - Constitutional Appears: Well, Non-toxic, No Acute Distress - Head Exam Head Exam: NORMAL INSPECTION, NORMOCEPHALIC - Eye Exam Eye Exam: EOMI, Normal appearance - ENT Exam ENT Exam: Mucous Membranes Moist - Neck Exam Neck Exam: Normal Inspection - Respiratory Exam Respiratory Exam: Clear to Ausculation Bilateral, NORMAL BREATHING PATTERN - Cardiovascular Exam Cardiovascular Exam: REGULAR RHYTHM, +S1, +S2 - GI/Abdominal Exam Additional comments: [id number] hard abscess noted in L groin region. Very tender to palpation - Extremities Exam Additional comments: Dressing in place along L hip - Back Exam Back Exam: NORMAL INSPECTION - Neurological Exam Neurological Exam: Alert, Awake, Oriented x3 - Psychiatric Exam Psychiatric exam: Normal Affect, Normal Mood - Skin Skin Exam: Dry, Intact, Warm Assessment and Plan - Assessment and Plan (Free Text) Assessment: 37 y/o M with PMHx of Multiple CVAs, factor V leiden, ESRD on HD MWF, DM1 with neuropathy, retinopathy, neurogenic bladder w/ lópez, HTN, hypothyroid, anxiety, Hx of CO presents with hematuria post lópez catheter placement. Hematuria - Indwelling lópez in place, no signs of overt bleeding. López bag draining tom colored clear urine - H/H stable, vitals stable - Continue cefepime for UTI - No leukocytosis on repeat cbc - Urology consulted (Dr. Wolfe) NPO past midnight Rectal impaction - Continue Colace - Continue Miralax - Continue [place] - Tap water enema - Start Lactulose PO Hx of ESRD - On HD on MWF - HD yesterday (tolerated well) - Nephrology on consult (Dr. Mendoza); recommendations appreciated - Continue home renal medications Hx of CVA - Continue aspirin - Continue atorvastatin Hx of factor V leiden - Continue eliquis 2.5mg Hx of CO - Hold anti-hypertensives due to hypotension - Continue atorvastatin - Continue isordil - Continue aspirin Hx of DM1 - Insulin regular/detemir - Gabapentin for neuropathy Hx of anxiety - Continue home zolpidem DVT/GI: continue Eliquis/protonix Patient seen and case discussed in detail with Dr. Yuliya Zimmerman PGY1 <Ector Dwyer - Last Filed: 02/09/18 14:57> Objective - Vital Signs/Intake and Output Vital Signs (last 24 hours): Temp Pulse Resp BP Pulse Ox 98.5 F 70 18 168/88 H 96 02/09/18 07:00 12/01/18 07:00 02/09/18 07:00 02/09/18 12:24 02/09/18 07:00 Intake and Output: 02/09/18 02/09/18 06:59 18:59 Intake Total 460 Output Total 20 Balance 440 - Medications Medications: Current Medications Apixaban (Eliquis) 2.5 mg PO BID [facility]; Protocol Last Admin: 02/09/18 09:33 Dose: 2.5 mg Atorvastatin Calcium (Lipitor) 80 mg PO HS [facility] Last Admin: 02/08/18 22:23 Dose: 80 mg Calcitriol (Rocaltrol) 0.5 mcg PO DAILY [facility] Last Admin: 02/09/18 09:37 Dose: 0.5 mcg Darbepoetin Riccardo (Aranesp) 60 mcg IVP QWK [facility] Last Admin: 02/08/18 14:22 Dose: 60 mcg Docusate Sodium (Colace) 100 mg PO DAILY [facility] Last Admin: 02/09/18 09:33 Dose: 100 mg Duloxetine HCl (Cymbalta) 30 mg PO DAILY [facility] Last Admin: 02/09/18 09:33 Dose: 30 mg Furosemide (Lasix) 40 mg PO TTS [facility] Last Admin: 02/09/18 12:24 Dose: 40 mg Gabapentin (Neurontin) 100 mg PO TID [facility]; Protocol Last Admin: 02/09/18 13:44 Dose: 100 mg Hydromorphone HCl (Dilaudid) 2 mg PO DAILY [facility] Last Admin: 02/09/18 10:00 Dose: Not Given Cefepime HCl 0.5 gm/ Sodium (Chloride) 100 mls @ 100 mls/hr IVPB Q24H [facility]; Protocol Last Admin: 02/09/18 12:19 Dose: 100 mls/hr Insulin Detemir (Levemir) 15 unit SC [facility] Last Admin: 02/09/18 09:35 Dose: 15 units Insulin Human Regular (Humulin R) 7 units SC [facility]; Protocol Last Admin: 02/09/18 12:24 Dose: 7 units Isosorbide Dinitrate (Isordil) 20 mg PO DAILY [facility] Last Admin: 02/09/18 09:40 Dose: Not Given Lactulose (Enulose) 20 gm PO Q6 [facility] Levothyroxine Sodium (Synthroid) 175 mcg PO DAILY@0630 [facility] Last Admin: 02/09/18 06:24 Dose: 175 mcg Losartan Potassium (Cozaar) 50 mg PO QPM [facility] Non-Formulary Medication (Linaclotide [Linzess]) 145 mcg PO DAILY [facility] Last Admin: 02/09/18 09:36 Dose: Not Given Pantoprazole Sodium (Protonix Ec Tab) 40 mg PO 0600 [facility] Last Admin: 02/09/18 06:24 Dose: 40 mg Polyethylene Glycol (Miralax) 17 gm PO BID [facility] Last Admin: 02/09/18 09:36 Dose: 17 gm Senna/Docusate Sodium (Senokot S 50 Mg-8.6 Mg) 1 tab PO BID [facility] Last Admin: 02/09/18 09:37 Dose: 1 tab Sevelamer HCl (Renagel) 800 mg PO WM [facility] Last Admin: 02/09/18 12:24 Dose: 800 mg Vitamin B Complex/Vit C/Folic Acid (Nephro-Devi) 1 tab PO DAILY [facility] Last Admin: 02/09/18 09:36 Dose: 1 tab Zolpidem Tartrate (Ambien) 10 mg PO HS PRN; Protocol PRN Reason: Insomnia Last Admin: 02/08/18 22:23 Dose: 10 mg - Labs Labs: 02/09/18 06:30 02/09/18 06:30 PT 15.5 SECONDS (9.4-12.5) H 02/07/18 15:16 INR 1.35 02/07/18 15:16 APTT 29.8 Seconds (25.1-36.5) 02/07/18 15:16 Attending/Attestation - Attestation I have personally seen and examined this patient.: Yes I have fully participated in the care of the patient.: Yes I have reviewed all pertinent clinical information, including history, physical exam and plan: Yes Notes (Text): 02/09/18 14:56 Attending note; Patient seen and examined with resident. Patient is alert and awake. Denies any fevers, chills. Denies any urinary symptoms. Patient has chronic indwelling López catheter. He has chronic constipation. Patient is bedridden. not In any acute distress. Patient is a 37 year old male with PMHx of Multiple CVAs, factor V leiden, ESRD on dialysis MWF, DM1 with neuropathy, retinopathy, neurogenic bladder w/ lópez, HTN, hypothyroid, anxiety is admitted for hematuria and increased urinary sediment seen in López catheter. 1. Hematuria; after changing López catheter. Currently resolved. Has dark urine in the back. No bleeding noted. UA is positive. Culture is positive for gram-negative rods .Started on cefepime. 2. End-stage renal disease; continue hemodialysis via right IJ catheter. Nephrology evaluation appreciated. Had hemodialysis yesterday. 3. Diabetic neuropathy and retinopathy. Continue levemir and Regular Insulin sliding scale. 4. Neurogenic bladder; with chronic indwelling López. 5. Chronic constipation; continue lactulose. Enema ordered. Patient has chronic rectal wall thickening due to chronic constipation. Needs GI workup as outpatient. 6. Bedridden. Follow-up culture results. Upon discharge the patient will follow-up with PMD Dr. Wakefield.
[2018-02-09] MEDS: Cefepime 0.5 GM in Sodium Chloride 0.9% 100 ML IVPB SCH (12:19)
[2018-02-09] MEDS ORDERED: Mineral Oil Enema 135 ml RC ONE (14:47)
--- NOTE | 2018-02-09 15:43 | CP.PCM.PN ---
Subjective - Date & Time of Evaluation Date of Evaluation: 02/09/18 Time of Evaluation: 15:42 - Subjective Subjective: Nephrology Consultation Note: Assessment: Stable gross hematuria ? UTI Diabetic chronic Kidney Disease (E11.22) Hypertensive Chronic Kidney Disease (I12.0) End stage renal disease (N18.6) dependence on hemodialysis (Z99.2) (MWF) via PC Anemia (D64.9), Hyperphosphatemia (E83.39), Secondary Hyperparathyroidism (E 21.1), HTN (I12.0) Obesity, Multiple CVAs, factor V leiden, neurogenic bladder w/ lópez, hypothyroid, anxiety, Hx of HI Plan: Will plan for HD MWF schedule as ordered. Continue with Nephrovite 1 tab/day. PRBC as needed for anemia. on LEONARD with dialysis as last Hb 9 Continue with phos binders, last phos level 5.7 Continue with calcitriol. BP better, gradually resume meds Glycemic control, Dialysis consistent diet Further work up/management as per primary team Dose meds/antibiotics (if needed) for ESRD status. Avoid fleets enema/magnesium based laxatives. evaluation Thanks for allowing me to participate in care of your patient. Will follow patient with you. Please call if any Qs. Dr Artis Mendoza Office: [phone] Chief Complaint; blood in urine HPI: Pt is a 37 M with hx of ESRD on hemodialysis (MWF) via PC , last dialysis wed, chronic anemia, hyperphosphatemia, secondary hyperparathyroidism, Diabetes Mellitus, hypertension, Multiple CVAs, factor V leiden, neurogenic bladder w/ lópez, hypothyroid, anxiety, Hx of HI, obesity presented with complaints of blood in urine and low BP. besides that he feels in usual health. no SOB/CP/fever/chills Renal consult requested for ESRD management. ROS: Cardiovascular: No chest pain. Pulmonary: No shortness of breath Gastrointestinal: denies abdominal pain No nausea. No vomiting. Genitourinary: No pain while urinating. c/o blood in urine. has chronic lópez All other negative except as mentioned in HPI Physical Examination: General Appearance: Comfortable, in no acute respiratory distress, co-operative . obese Vitals reviewed and noted as below Head; Atraumatic, normocephalic ENT: no ulcers no thrush. Tongue is midline. Oropharynx: no rash or ulcers. EYES: Pupils are equal, round and reactive to light accommodation. Eye muscles and extraocular movement intact. Sclera is anicteric. he is visually impared Neck; supple no lymphadenopathy, no thyromegaly or bruit Lungs: Normal respiratory rate/effort. Breath sounds bilateral equal and clear Heart: Normal rate. s1s2 normal. No rub or gallop. Extremities: no edema. No varicose veins Neurological: Patient is alert, awake and oriented to person, place and time. chronic lower ext weakness. Skin: Warm and dry. Normal turgor. No rash. Palpitation: Normal elasticity for age Abdomen: Abdomen is soft. Bowel sounds +. There is no abdominal tenderness, no g uarding/rigidity or organomegaly Psych: normal insight and normal affect/mood MSK: no joint tenderness or swelling. Digits and nails normal, no deformity : kidney or bladder not palpable. has lópez draining yellow urine Access: PC. AVF maturing. Labs/imaging reviewed. Past medical history, past surgical history, family history, social history, allergy reviewed and noted as below Family Hx: no hx of CKD. Non contributory Objective - Vital Signs/Intake and Output Vital Signs (last 24 hours): Temp Pulse Resp BP Pulse Ox 98.5 F 70 18 168/88 H 96 02/09/18 07:00 02/09/18 07:00 02/09/18 07:00 02/09/18 12:24 02/09/18 07:00 Intake and Output: 02/09/18 02/09/18 06:59 18:59 Intake Total 460 Output Total 20 Balance 440 - Medications Medications: Current Medications Apixaban (Eliquis) 2.5 mg PO BID [facility]; Protocol Last Admin: 02/09/18 09:33 Dose: 2.5 mg Atorvastatin Calcium (Lipitor) 80 mg PO HS [facility] Last Admin: 02/08/18 22:23 Dose: 80 mg Calcitriol (Rocaltrol) 0.5 mcg PO DAILY [facility] Last Admin: 02/09/18 09:37 Dose: 0.5 mcg Darbepoetin Riccardo (Aranesp) 60 mcg IVP QWK [facility] Last Admin: 02/08/18 14:22 Dose: 60 mcg Docusate Sodium (Colace) 100 mg PO DAILY [facility] Last Admin: 02/09/18 09:33 Dose: 100 mg Duloxetine HCl (Cymbalta) 30 mg PO DAILY [facility] Last Admin: 02/09/18 09:33 Dose: 30 mg Furosemide (Lasix) 40 mg PO TTS [facility] Last Admin: 02/09/18 12:24 Dose: 40 mg Gabapentin (Neurontin) 100 mg PO TID [facility]; Protocol Last Admin: 02/09/18 13:44 Dose: 100 mg Hydromorphone HCl (Dilaudid) 2 mg PO DAILY [facility] Last Admin: 02/09/18 10:00 Dose: Not Given Cefepime HCl 0.5 gm/ Sodium (Chloride) 100 mls @ 100 mls/hr IVPB Q24H [facility]; Protocol Last Admin: 02/09/18 12:19 Dose: 100 mls/hr Insulin Detemir (Levemir) 15 unit SC [facility] Last Admin: 02/09/18 09:35 Dose: 15 units Insulin Human Regular (Humulin R) 7 units SC [facility]; Protocol Last Admin: 02/09/18 12:24 Dose: 7 units Isosorbide Dinitrate (Isordil) 20 mg PO DAILY [facility] Last Admin: 02/09/18 09:40 Dose: Not Given Lactulose (Enulose) 20 gm PO Q6 [facility] Levothyroxine Sodium (Synthroid) 175 mcg PO DAILY@0630 [facility] Last Admin: 02/09/18 06:24 Dose: 175 mcg Losartan Potassium (Cozaar) 50 mg PO QPM [facility] Non-Formulary Medication (Linaclotide [Linzess]) 145 mcg PO DAILY [facility] Last Admin: 02/09/18 09:36 Dose: Not Given Pantoprazole Sodium (Protonix Ec Tab) 40 mg PO 0600 [facility] Last Admin: 02/09/18 06:24 Dose: 40 mg Polyethylene Glycol (Miralax) 17 gm PO BID [facility] Last Admin: 02/09/18 09:36 Dose: 17 gm Senna/Docusate Sodium (Senokot S 50 Mg-8.6 Mg) 1 tab PO BID [facility] Last Admin: 02/09/18 09:37 Dose: 1 tab Sevelamer HCl (Renagel) 800 mg PO WM [facility] Last Admin: 02/09/18 12:24 Dose: 800 mg Vitamin B Complex/Vit C/Folic Acid (Nephro-Devi) 1 tab PO DAILY [facility] Last Admin: 02/09/18 09:36 Dose: 1 tab Zolpidem Tartrate (Ambien) 10 mg PO HS PRN; Protocol PRN Reason: Insomnia Last Admin: 02/08/18 22:23 Dose: 10 mg - Labs Labs: 02/09/18 06:30 02/09/18 06:30 PT 15.5 SECONDS (9.4-12.5) H 02/07/18 15:16 INR 1.35 02/07/18 15:16 APTT 29.8 Seconds (25.1-36.5) 02/07/18 15:16
[2018-02-10] MEDS: Levothyroxine 175 MCG TAB PO SCH (06:41)
[2018-02-10] MEDS: Pantoprazole 40 mg EC Tab PO SCH (06:41)
[2018-02-10 08:03] LABS: ALB/GLOB RATIO 1.1 (1.1-1.8); ALBUMIN 3.9 g/dL (3.0-4.8)
[2018-02-10 08:04] LABS: BASO # 0.06 K/mm3 (0.0-2.0); BASO % 0.8 % (0.0-3.0); EOS # 0.3 (0.0-0.7); EOS % 3.8 % (1.5-5.0); GRAN # 4.71 (1.4-6.5); GRAN % 58.8 % (50.0-68.0); HEMOGLOBIN 9.7 g/dL (14.0-18.0); LYMPH # 2.1 (1.2-3.4); LYMPH % 25.6 % (22.0-35.0); MEAN CELL VOLUME 92.1 fl (80.0-105.0); MEAN CORPUSCULAR HEMOGLOBIN 30.7 pg (25.0-35.0); MEAN CORPUSCULAR HGB CONC 33.3 g/dl (31.0-37.0); MEAN PLATELET VOLUME 9.7 fl (7.0-11.0); MONO # 0.9 (0.1-0.6); RBC 3.16 10^6/uL (3.5-6.1); RED CELL DISTRIBUTION WIDTH 14.1 % (11.5-14.5)
[2018-02-10 08:29] VITALS: BP 144/83; PULSE 100; TEMP 98; O2SAT 96
[2018-02-10] MEDS: Insulin Regular 1 UNITS/0.01 ML ML SC SCH ×2 (08:54→12:53)
[2018-02-10] MEDS: Insulin Detemir 100 units/ml Vial (Levemir) SC SCH (08:54)
[2018-02-10] MEDS: Multivitamin Vitamin B Complex (Nephro-Vite) Tab PO SCH (09:37)
[2018-02-10] MEDS: Docusate-Senna 50 mg-8.6 mg Tab PO SCH (09:38)
[2018-02-10] MEDS: Non Formulary Medication (Linaclotide [Linzess] 145 MCG) PO SCH (09:40)
[2018-02-10] MEDS: POLYETHYLENE GLYCOL 3350 17 GM/Dose PACKET PO SCH (09:40)
[2018-02-10] MEDS: Cefepime 0.5 GM in Sodium Chloride 0.9% 100 ML IVPB SCH ×2 (09:47→12:51)
--- NOTE | 2018-02-10 09:57 | CP.PCM.PN ---
Subjective - Date & Time of Evaluation Date of Evaluation: 02/10/18 Time of Evaluation: 09:56 - Subjective Subjective: Nephrology Consultation Note: Assessment: Stable gross hematuria with K. Pneumo UTI Diabetic chronic Kidney Disease (E11.22) Hypertensive Chronic Kidney Disease (I12.0) End stage renal disease (N18.6) dependence on hemodialysis (Z99.2) (MWF) via PC Anemia (D64.9), Hyperphosphatemia (E83.39), Secondary Hyperparathyroidism (E21.1), HTN (I12.0) Obesity, Multiple CVAs, factor V leiden, neurogenic bladder w/ lópez, hypothyroid, anxiety, Hx of ID Plan: Will plan for HD MWF schedule as ordered. Continue with Nephrovite 1 tab/day. PRBC as needed for anemia. on LEONARD with dialysis as last Hb 9 Continue with phos binders, last phos level 5.7 Continue with calcitriol. BP better, gradually resume meds Glycemic control, Dialysis consistent diet Further work up/management as per primary team Dose meds/antibiotics (if needed) for ESRD status. Avoid fleets enema/magnesium based laxatives. pt stable for d/c from renal perspective when planned Thanks for allowing me to participate in care of your patient. Will follow patient with you. Please call if any Qs. had d/w team Dr Artis Mendoza Office: [phone] Chief Complaint; blood in urine HPI: Pt is a 37 M with hx of ESRD on hemodialysis (MWF) via PC , last dialysis wed, chronic anemia, hyperphosphatemia, secondary hyperparathyroidism, Diabetes Mellitus, hypertension, Multiple CVAs, factor V leiden, neurogenic bladder w/ lópez, hypothyroid, anxiety, Hx of ID, obesity presented with complaints of blood in urine and low BP. besides that he feels in usual health. no SOB/CP/fever/chills Renal consult requested for ESRD management. ROS: Cardiovascular: No chest pain. Pulmonary: No shortness of breath Gastrointestinal: denies abdominal pain No nausea. No vomiting. Genitourinary: No pain while urinating. c/o blood in urine: now resolved has chronic lópez All other negative except as mentioned in HPI Physical Examination: General Appearance: Comfortable, in no acute respiratory distress, co-operative . obese Vitals reviewed and noted as below Head; Atraumatic, normocephalic ENT: no ulcers no thrush. Tongue is midline. Oropharynx: no rash or ulcers. EYES: Pupils are equal, round and reactive to light accommodation. Eye muscles and extraocular movement intact. Sclera is anicteric. he is visually impared Neck; supple no lymphadenopathy, no thyromegaly or bruit Lungs: Normal respiratory rate/effort. Breath sounds bilateral equal and clear Heart: Normal rate. s1s2 normal. No rub or gallop. Extremities: no edema. No varicose veins Neurological: Patient is alert, awake and oriented to person, place and time. chronic lower ext weakness. Skin: Warm and dry. Normal turgor. No rash. Palpitation: Normal elasticity for age Abdomen: Abdomen is soft. Bowel sounds +. There is no abdominal tenderness, no guarding/rigidity or organomegaly Psych: normal insight and normal affect/mood MSK: no joint tenderness or swelling. Digits and nails normal, no deformity : kidney or bladder not palpable. has lópez draining yellow urine Access: PC. AVF maturing. Labs/imaging reviewed. Past medical history, past surgical history, family history, social history, allergy reviewed and noted as below Family Hx: no hx of CKD. Non contributory Objective - Vital Signs/Intake and Output Vital Signs (last 24 hours): Temp Pulse Resp BP Pulse Ox 98 F 100 H 18 144/83 96 02/10/18 07:00 02/10/18 07:00 02/10/18 07:00 02/10/18 07:00 02/10/18 07:00 Intake and Output: 02/10/18 02/10/18 06:59 18:59 Intake Total 500 Output Total 250 Balance 250 - Medications Medications: Current Medications Apixaban (Eliquis) 2.5 mg PO BID [facility]; Protocol Last Admin: 02/10/18 09:38 Dose: 2.5 mg Atorvastatin Calcium (Lipitor) 80 mg PO HS [facility] Last Admin: 02/09/18 21:29 Dose: 80 mg Calcitriol (Rocaltrol) 0.5 mcg PO DAILY [facility] Last Admin: 02/10/18 09:37 Dose: 0.5 mcg Darbepoetin Riccardo (Aranesp) 60 mcg IVP QWK [facility] Last Admin: 02/08/18 14:22 Dose: 60 mcg Docusate Sodium (Colace) 100 mg PO DAILY [facility] Last Admin: 02/10/18 09:37 Dose: 100 mg Duloxetine HCl (Cymbalta) 30 mg PO DAILY [facility] Last Admin: 02/10/18 09:39 Dose: 30 mg Furosemide (Lasix) 40 mg PO TTS [facility] Last Admin: 02/09/18 12:24 Dose: 40 mg Gabapentin (Neurontin) 100 mg PO TID [facility]; Protocol Last Admin: 02/10/18 09:38 Dose: 100 mg Hydromorphone HCl (Dilaudid) 2 mg PO DAILY [facility] Last Admin: 02/10/18 09:38 Dose: 2 mg Cefepime HCl 0.5 gm/ Sodium (Chloride) 100 mls @ 100 mls/hr IVPB Q24H [facility]; Protocol Last Admin: 02/10/18 09:47 Dose: 100 mls/hr Insulin Detemir (Levemir) 15 unit SC [facility] Last Admin: 02/10/18 08:54 Dose: 15 units Insulin Human Regular (Humulin R) 7 units SC [facility]; Protocol Last Admin: 02/10/18 08:54 Dose: 7 units Isosorbide Dinitrate (Isordil) 20 mg PO DAILY [facility] Last Admin: 02/10/18 09:41 Dose: 20 mg Lactulose (Enulose) 20 gm PO Q6 [facility] Last Admin: 02/10/18 06:41 Dose: 20 gm Levothyroxine Sodium (Synthroid) 175 mcg PO DAILY@0630 [facility] Last Admin: 02/10/18 06:41 Dose: 175 mcg Losartan Potassium (Cozaar) 50 mg PO QPM [facility] Last Admin: 02/09/18 17:18 Dose: 50 mg Non-Formulary Medication (Linaclotide [Linzess]) 145 mcg PO DAILY [facility] Last Admin: 02/10/18 09:40 Dose: Not Given Pantoprazole Sodium (Protonix Ec Tab) 40 mg PO 0600 [facility] Last Admin: 02/10/18 06:41 Dose: 40 mg Polyethylene Glycol (Miralax) 17 gm PO BID [facility] Last Admin: 02/10/18 09:40 Dose: 17 gm Senna/Docusate Sodium (Senokot S 50 Mg-8.6 Mg) 1 tab PO BID [facility] Last Admin: 12/02/18 09:38 Dose: 1 tab Sevelamer HCl (Renagel) 800 mg PO WM [facility] Last Admin: 02/10/18 09:38 Dose: 800 mg Vitamin B Complex/Vit C/Folic Acid (Nephro-Devi) 1 tab PO DAILY [facility] Last Admin: 02/10/18 09:37 Dose: 1 tab Zolpidem Tartrate (Ambien) 10 mg PO HS PRN; Protocol PRN Reason: Insomnia Last Admin: 02/09/18 23:01 Dose: 10 mg - Labs Labs: 02/10/18 07:00 02/10/18 07:00 PT 15.5 SECONDS (9.4-12.5) H 02/07/18 15:16 INR 1.35 02/07/18 15:16 APTT 29.8 Seconds (25.1-36.5) 02/07/18 15:16
--- NOTE | 2018-02-10 15:07 | CP.PCM.DIS ---
<Sharon Zimmerman - Last Filed: 02/10/18 15:04> Provider - Provider Date of Admission: 02/08/18 07:41 Attending physician: Joyce Goodman MD Primary care physician: Dr. Wakefield Consults: 02/07/18 20:53 Physician Consult Routine Comment: Consulting Provider: Genaro Wolfe Consulting Physician: Genaro Wolfe Reason for Consult: ?traumatic lópez 02/07/18 22:55 Nephrology Consult Routine Comment: Consulting Provider: Artis Mendoza Consulting Physician: Artis Mendoza Reason for Consult: ESRD on HD MWF 02/07/18 23:55 Social Work Referral Routine Comment: eval Physician Instructions: Reason For Exam: discharge planning 02/09/18 12:00 Physician Consult Routine Comment: Consulting Provider: Perry Bird Consulting Physician: Perry Bird Reason for Consult: Klebsiella in Urine Culture Time Spent in preparation of Discharge (in minutes): 45 Diagnosis - Discharge Diagnosis (1) Acute on chronic renal insufficiency Status: Chronic Priority: Medium (2) Hematuria Status: Acute Priority: Medium Hospital Course - Lab Results Lab Results: Micro Results 02/07/18 18:50 Blood Blood Culture - Preliminary NO GROWTH AFTER 48 HOURS 02/07/18 18:35 Blood Blood Culture - Preliminary NO GROWTH AFTER 48 HOURS 02/07/18 17:24 Urine Urine Culture - Final Klebsiella Pneumoniae Ssp Pneu Most Recent Lab Values WBC 8.0 10^3/uL (4.5-11.0) 02/10/18 07:00 RBC 3.16 10^6/uL (3.5-6.1) L 02/10/18 07:00 Hgb 9.7 g/dL (14.0-18.0) L 02/10/18 07:00 Hct 29.1 % (42.0-52.0) L 02/10/18 07:00 MCV 92.1 fl (80.0-105.0) D 02/10/18 07:00 MCH 30.7 pg (25.0-35.0) 02/10/18 07:00 MCHC 33.3 g/dl (31.0-37.0) 02/10/18 07:00 RDW 14.1 % (11.5-14.5) 02/10/18 07:00 Plt Count 281 10^3/uL (120.0-450.0) 02/10/18 07:00 MPV 9.7 fl (7.0-11.0) 02/10/18 07:00 Gran % 58.8 % (50.0-68.0) 02/10/18 07:00 Lymph % (Auto) 25.6 % (22.0-35.0) 02/10/18 07:00 Vernon % (Auto) 11.0 % (1.0-6.0) H 02/10/18 07:00 Eos % (Auto) 3.8 % (1.5-5.0) 02/10/18 07:00 Baso % (Auto) 0.8 % (0.0-3.0) 02/10/18 07:00 Gran # 4.71 (1.4-6.5) 02/10/18 07:00 Lymph # (Auto) 2.1 (1.2-3.4) 02/10/18 07:00 Vernon # (Auto) 0.9 (0.1-0.6) H 02/10/18 07:00 Eos # (Auto) 0.3 (0.0-0.7) 02/10/18 07:00 Baso # (Auto) 0.06 K/mm3 (0.0-2.0) 02/10/18 07:00 PT 15.5 SECONDS (9.4-12.5) H 02/07/18 15:16 INR 1.35 02/07/18 15:16 APTT 29.8 Seconds (25.1-36.5) 02/07/18 15:16 Sodium 133 mmol/L (132-148) 02/10/18 07:00 Potassium 4.0 mmol/L (3.6-5.0) 02/10/18 07:00 Chloride 94 mmol/L (98-107) L 02/10/18 07:00 Carbon Dioxide 26 mmol/L (21-33) 02/10/18 07:00 Anion Gap 17 (10-20) 02/10/18 07:00 BUN 58 mg/dL (7-21) H 02/10/18 07:00 Creatinine 6.0 mg/dl (0.8-1.5) H 02/10/18 07:00 Est GFR ( Amer) 13 02/10/18 07:00 Est GFR (Non-Af Amer) 11 02/10/18 07:00 POC Glucose (mg/dL) 238 mg/dL (65-110) H 02/10/18 11:34 Random Glucose 233 mg/dL (70-110) H 02/10/18 07:00 Calcium 9.0 mg/dL (8.4-10.5) 02/10/18 07:00 Phosphorus 6.7 mg/dL (2.5-4.5) H 02/10/18 07:00 Magnesium 2.8 mg/dL (1.7-2.2) H 02/10/18 07:00 Total Bilirubin 0.7 mg/dL (0.2-1.3) 02/10/18 07:00 AST 27 U/L (17-59) 02/10/18 07:00 ALT 43 U/L (7-56) 02/10/18 07:00 Alkaline Phosphatase 147 U/L (38-126) H 02/10/18 07:00 Total Protein 7.3 g/dL (5.8-8.3) 02/10/18 07:00 Albumin 3.9 g/dL (3.0-4.8) 02/10/18 07:00 Globulin 3.5 gm/dL 02/10/18 07:00 Albumin/Globulin Ratio 1.1 (1.1-1.8) 02/10/18 07:00 Urine Color Brown (YELLOW) 02/07/18 17:24 Urine Appearance Cloudy (CLEAR) 02/07/18 17:24 Urine pH 7.0 (4.7-8.0) 02/07/18 17:24 Ur Specific Ellsworth 1.025 (1.005-1.035) 02/07/18 17:24 Urine Protein >=300 mg/dL (<30 mg/dL) H 02/07/18 17:24 Urine Glucose (UA) Negative mg/dL (NEGATIVE) 02/07/18 17:24 Urine Ketones Trace mg/dL (NEGATIVE) H 02/07/18 17:24 Urine Blood Large (NEGATIVE) H 02/07/18 17:24 Urine Nitrate Positive (NEGATIVE) H 02/07/18 17:24 Urine Bilirubin Large (NEGATIVE) H 02/07/18 17:24 Urine Urobilinogen 1.0 E.U./dL (<1 E.U./dL) H 02/07/18 17:24 Ur Leukocyte Esterase Large Thaddeus/uL (NEGATIVE) H 02/07/18 17:24 Urine RBC Tntc /hpf (0-2) 02/07/18 17:24 Urine WBC Tntc /hpf (0-6) 02/07/18 17:24 Ur Epithelial Cells None /hpf (0-5) 02/07/18 17:24 Urine Bacteria Large (NEG) 02/07/18 17:24 Hep Bs Antigen Negative (NEGATIVE) 02/08/18 19:08 Hep Bs Antibody Positive (NEGATIVE) 02/08/18 19:08 Blood Type A POSITIVE 02/07/18 15:16 Antibody Screen Negative 02/07/18 15:16 BBK History Checked Patient has bt 02/07/18 15:16 - Hospital Course Hospital Course: PGY1 Discharge Summary and Hospital Course for Dr. Dwyer Mr. Mccartney is a 37-year-old Male with PMH Multiple CVAs, factor V leiden, ESRD on HD MWF, DM1 with neuropathy, retinopathy, neurogenic bladder w/ lópez, HTN, hypothyroid, anxiety, Hx of [place] who presented to [facility] [place] on [place]/07[place]18 after he woke up with 250 cc of gross blood noted in his lópez bag after recent lópez placement. Patient also reported having diarrhea for the past 2 days. Patient's caregiver reported Patient had a systolic BP at home of 66 and thus brought him to ED. While in the ED, vitals, systolic BP was 88/50 in ED which subsequently increased to 120s/60s. Urinalysis was obtained and was consistent with UTI. Please see chart for details. During hospitalization, the patient's H/H was stable. Patient was hemodynamically stable. Urine cultures were obtained and revealed Klebsiella Pneumoniae. ID (Dr. Bird) was consulted. Patient was treated with cefepime. Urology was consulted (Beba Camacho). Please see reports for details. Of note, Patient has history of ESRD. Nephrology was consulted (Dr. Mendoza). Of note, Patient was restarted on home medications for his chronic conditions as ordered. Please see progress notes for more detail. On day of discharge, Patient was hemodynamically stable and had no new complaints. Thus Patient was medically optimized for discharge to home. Patient provided both written and verbal discharge instructions that were explained to the level of Patient comprehension. Patient both understands and agrees to instructions. Please see chart for more details. Patient seen and case discussed in detail with Dr. Yuliya Zimmerman PGY1 Discharge Exam - Additional Findings Additional findings: - Constitutional Appears: Well, Non-toxic, No Acute Distress - Head Exam Head Exam: NORMAL INSPECTION, NORMOCEPHALIC - Eye Exam Eye Exam: EOMI, Normal appearance - ENT Exam ENT Exam: Mucous Membranes Moist - Neck Exam Neck Exam: Normal Inspection - Respiratory Exam Respiratory Exam: Clear to Ausculation Bilateral, NORMAL BREATHING PATTERN - Cardiovascular Exam Cardiovascular Exam: REGULAR RHYTHM, +S1, +S2 - GI/Abdominal Exam Additional comments: [id number] hard abscess noted in L groin region. Very tender to palpation - Extremities Exam Additional comments: Dressing in place along L hip - Back Exam Back Exam: NORMAL INSPECTION - Neurological Exam Neurological Exam: Alert, Awake, Oriented x3 - Psychiatric Exam Psychiatric exam: Normal Affect, Normal Mood - Skin Skin Exam: Dry, Intact, Warm Discharge Plan - Discharge Medications Prescriptions: Cefpodoxime [Vantin] 200 mg PO DAILY #7 tab - Follow Up Plan Condition: FAIR Disposition: HOME/ ROUTINE Instructions: Type 1 Diabetes, High Blood Pressure in Adults, Fecal Impaction, How to Care for Your López Catheter, Male, Renal Failure Diet (DC) Additional Instructions: Please follow up with your primary care doctor, Dr. Wakefield, within 3-5 days of being discharged from the hospital. Please discuss all medical issues addressed during your admission. Please continue hemodialysis as scheduled MWF at [facility]. You are being prescribed a 7 day course of an antibiotic called Vantin. You will take this once daily for seven days starting 02/11/2018. Please complete the full course of this antibiotic. Please continue all other home medications as prescribed. If your symptoms return, please seek emergency medical attention immediately. Referrals: Araseli Wakefield MD [Family Provider] - <Ector Dwyer - Last Filed: 02/10/18 16:21> Provider - Provider Date of Admission: 02/08/18 07:41 Attending physician: Joyce Goodman MD Consults: 02/07/18 20:53 Physician Consult Routine Comment: Consulting Provider: Genaro Wolfe Consulting Physician: Genaro Wolfe Reason for Consult: ?traumatic lópez 02/07/18 22:55 Nephrology Consult Routine Comment: Consulting Provider: Artis Mendoza Consulting Physician: Artis Mendoza Reason for Consult: ESRD on HD MWF 02/07/18 23:55 Social Work Referral Routine Comment: eval Physician Instructions: Reason For Exam: discharge planning 02/09/18 12:00 Physician Consult Routine Comment: Consulting Provider: Perry Bird Consulting Physician: Perry Bird Reason for Consult: Klebsiella in Urine Culture Hospital Course - Lab Results Lab Results: Micro Results 02/07/18 18:50 Blood Blood Culture - Preliminary NO GROWTH AFTER 48 HOURS 02/07/18 18:35 Blood Blood Culture - Preliminary NO GROWTH AFTER 48 HOURS 02/07/18 17:24 Urine Urine Culture - Final Klebsiella Pneumoniae Ssp Pneu Most Recent Lab Values WBC 8.0 10^3/uL (4.5-11.0) 02/10/18 07:00 RBC 3.16 10^6/uL (3.5-6.1) L 02/10/18 07:00 Hgb 9.7 g/dL (14.0-18.0) L 02/10/18 07:00 Hct 29.1 % (42.0-52.0) L 02/10/18 07:00 MCV 92.1 fl (80.0-105.0) D 02/10/18 07:00 MCH 30.7 pg (25.0-35.0) 02/10/18 07:00 MCHC 33.3 g/dl (31.0-37.0) 02/10/18 07:00 RDW 14.1 % (11.5-14.5) 02/10/18 07:00 Plt Count 281 10^3/uL (120.0-450.0) 02/10/18 07:00 MPV 9.7 fl (7.0-11.0) 02/10/18 07:00 Gran % 58.8 % (50.0-68.0) 02/10/18 07:00 Lymph % (Auto) 25.6 % (22.0-35.0) 02/10/18 07:00 Vernon % (Auto) 11.0 % (1.0-6.0) H 02/10/18 07:00 Eos % (Auto) 3.8 % (1.5-5.0) 02/10/18 07:00 Baso % (Auto) 0.8 % (0.0-3.0) 02/10/18 07:00 Gran # 4.71 (1.4-6.5) 02/10/18 07:00 Lymph # (Auto) 2.1 (1.2-3.4) 02/10/18 07:00 Vernon # (Auto) 0.9 (0.1-0.6) H 02/10/18 07:00 Eos # (Auto) 0.3 (0.0-0.7) 02/10/18 07:00 Baso # (Auto) 0.06 K/mm3 (0.0-2.0) 02/10/18 07:00 PT 15.5 SECONDS (9.4-12.5) H 02/07/18 15:16 INR 1.35 02/07/18 15:16 APTT 29.8 Seconds (25.1-36.5) 02/07/18 15:16 Sodium 133 mmol/L (132-148) 02/10/18 07:00 Potassium 4.0 mmol/L (3.6-5.0) 02/10/18 07:00 Chloride 94 mmol/L (98-107) L 02/10/18 07:00 Carbon Dioxide 26 mmol/L (21-33) 02/10/18 07:00 Anion Gap 17 (10-20) 02/10/18 07:00 BUN 58 mg/dL (7-21) H 02/10/18 07:00 Creatinine 6.0 mg/dl (0.8-1.5) H 02/10/18 07:00 Est GFR ( Amer) 13 02/10/18 07:00 Est GFR (Non-Af Amer) 11 02/10/18 07:00 POC Glucose (mg/dL) 238 mg/dL (65-110) H 02/10/18 11:34 Random Glucose 233 mg/dL (70-110) H 02/10/18 07:00 Calcium 9.0 mg/dL (8.4-10.5) 02/10/18 07:00 Phosphorus 6.7 mg/dL (2.5-4.5) H 02/10/18 07:00 Magnesium 2.8 mg/dL (1.7-2.2) H 02/10/18 07:00 Total Bilirubin 0.7 mg/dL (0.2-1.3) 02/10/18 07:00 AST 27 U/L (17-59) 02/10/18 07:00 ALT 43 U/L (7-56) 02/10/18 07:00 Alkaline Phosphatase 147 U/L (38-126) H 02/10/18 07:00 Total Protein 7.3 g/dL (5.8-8.3) 02/10/18 07:00 Albumin 3.9 g/dL (3.0-4.8) 02/10/18 07:00 Globulin 3.5 gm/dL 02/10/18 07:00 Albumin/Globulin Ratio 1.1 (1.1-1.8) 02/10/18 07:00 Urine Color Brown (YELLOW) 02/07/18 17:24 Urine Appearance Cloudy (CLEAR) 02/07/18 17:24 Urine pH 7.0 (4.7-8.0) 02/07/18 17:24 Ur Specific Ellsworth 1.025 (1.005-1.035) 02/07/18 17:24 Urine Protein >=300 mg/dL (<30 mg/dL) H 02/07/18 17:24 Urine Glucose (UA) Negative mg/dL (NEGATIVE) 02/07/18 17:24 Urine Ketones Trace mg/dL (NEGATIVE) H 02/07/18 17:24 Urine Blood Large (NEGATIVE) H 02/07/18 17:24 Urine Nitrate Positive (NEGATIVE) H 02/07/18 17:24 Urine Bilirubin Large (NEGATIVE) H 02/07/18 17:24 Urine Urobilinogen 1.0 E.U./dL (<1 E.U./dL) H 02/07/18 17:24 Ur Leukocyte Esterase Large Thaddeus/uL (NEGATIVE) H 02/07/18 17:24 Urine RBC Tntc /hpf (0-2) 02/07/18 17:24 Urine WBC Tntc /hpf (0-6) 02/07/18 17:24 Ur Epithelial Cells None /hpf (0-5) 02/07/18 17:24 Urine Bacteria Large (NEG) 02/07/18 17:24 Hep Bs Antigen Negative (NEGATIVE) 02/08/18 19:08 Hep Bs Antibody Positive (NEGATIVE) 02/08/18 19:08 Blood Type A POSITIVE 02/07/18 15:16 Antibody Screen Negative 02/07/18 15:16 BBK History Checked Patient has bt 02/07/18 15:16 Attending/Attestation - Attestation I have personally seen and examined this patient.: Yes I have fully participated in the care of the patient.: Yes I have reviewed all pertinent clinical information, including history, physical exam and plan: Yes Notes (Text): 02/10/18 16:19 Attending note; Patient seen and examined with resident. Patient is alert and awake. Denies any fevers, chills. Denies any urinary symptoms. Patient has chronic indwelling López catheter. clear urine in the bag. not In any acute distress. Patient is a 37 year old male with PMHx of Multiple CVAs, factor V leiden, ESRD on dialysis MWF, DM1 with neuropathy, retinopathy, neurogenic bladder w/ lópez, HTN, hypothyroid, anxiety is admitted for hematuria and increased urinary sediment seen in López catheter. 1. Hematuria; resolved. Clear urine in the López catheter. UA is positive. Culture is positive for Klebsiella . Treated with IV cefepime. Patient will be discharged home with by mouth Vantin. 2. End-stage renal disease; continue hemodialysis via right IJ catheter. Nephrology evaluation appreciated. Had hemodialysis on Sunday. 3. Diabetic neuropathy and retinopathy. Continue levemir and Regular Insulin sliding scale. 4. Neurogenic bladder; with chronic indwelling López. 5. Chronic constipation; continue lactulose at home. Patient has chronic rectal wall thickening due to chronic constipation. Needs GI workup as outpatient. 6. Bedridden. Discharge home today. Patient's father informed. Upon discharge the patient will follow-up with PMD Dr. Wakefield.
--- NOTE | 2018-02-10 15:17 | CON ---
DATE OF CONSULTATION: 02/10/2018 The patient is seen in Room 566, Bed 1. CHIEF COMPLAINT: Hematuria x1 day. HISTORY OF PRESENT ILLNESS: This is a 37-year-old male with past medical history significant for chronic renal failure, on hemodialysis, neurogenic bladder, paraplegia, diabetes mellitus, cerebrovascular accident, hypertension, anxiety, high cholesterol, coronary artery disease, myocardial infarction, alcohol abuse, urinary incontinence with self catheterization. The patient now presents to the emergency room with hematuria. PAST MEDICAL HISTORY: Significant for chronic renal failure, on hemodialysis, neurogenic bladder, diabetes mellitus, paraplegia, coronary artery disease, myocardial infarction, cerebrovascular accident, alcoholism, hypertension, anxiety, urinary incontinence with self catheterization. PAST SURGICAL HISTORY: Noncontributory. REVIEW OF SYSTEMS: A 14-point review of systems is performed. The patient has low-grade fevers, but no chills. No abdominal pain, diarrhea, or constipation. No dysuria or frequency. He does have hematuria and he is paraplegic. He is unable to give admitting symptoms. He does not have any headaches or blurred vision. PHYSICAL EXAMINATION: GENERAL: He is awake and alert, gives accurate history. VITAL SIGNS: Temperature is 100, heart rate is 100, respiratory rate of 18, blood pressure is 160/98. HEENT: Unremarkable. NECK: Supple. LUNGS: Decreased breath sounds. HEART: Normal S1 and S2. ABDOMEN: Soft, nontender. No organomegaly. No rebound, no guarding, no masses. LABORATORY EXAMINATION: Reveals a white count of 8, hemoglobin of 9, platelets of 281. Chemistries reveal a BUN of 58 and creatinine of 6.0. Urology is noted. Serology is reviewed. Microbiology reveals Klebsiella and urine culture pansensitive except for resistant to ampicillin. The patient had a CAT scan of the abdomen and pelvis, which shows no evidence of any renal mass or urolithiasis. ASSESSMENT AND PLAN: This is a 37-year-old male with Klebsiella urinary tract infection with hematuria, low-grade fevers, and tachycardia. We will treat with a short course of antibiotics with p.o. cefuroxime adjusted for renal failure for five to seven days. Case discussed with PMD. Perry Bird MD
[2018-02-14] MEDS ORDERED: Ergocalciferol 50,000 Intl Units Cap PO SCH (10:00)
== END 2018-02-10 14:21 | disposition home health service (06) | DRG 689 ==
LOC: ED 14:15 → ERH 19:00 → 5RNO 22:24 → OBSVTOIN 02-08 07:41
PROVIDERS: ADMIT Internal Medicine; ATTEND Internal Medicine
PROC: 5A1D70Z Performance of Urinary Filtration, Intermittent, Less than 6 Hours Per Day (ICD-10-PCS; principal; 2018-02-08)
DX: N39.0 Urinary tract infection, site not specified (principal); N18.6 End stage renal disease; D68.51 Activated protein C resistance; I12.0 Hypertensive chronic kidney disease with stage 5 chronic kidney disease or end stage renal disease; N25.81 Secondary hyperparathyroidism of renal origin; G82.20 Paraplegia, unspecified; B96.1 Klebsiella pneumoniae [K. pneumoniae] as the cause of diseases classified elsewhere; R31.0 Gross hematuria; E10.22 Type 1 diabetes mellitus with diabetic chronic kidney disease; K56.41 Fecal impaction; N31.9 Neuromuscular dysfunction of bladder, unspecified; E10.319 Type 1 diabetes mellitus with unspecified diabetic retinopathy without macular edema; E10.40 Type 1 diabetes mellitus with diabetic neuropathy, unspecified; D64.9 Anemia, unspecified; E03.9 Hypothyroidism, unspecified; E78.00 Pure hypercholesterolemia, unspecified; F41.9 Anxiety disorder, unspecified; E83.39 Other disorders of phosphorus metabolism; I25.10 Atherosclerotic heart disease of native coronary artery without angina pectoris; I69.398 Other sequelae of cerebral infarction; H54.7 Unspecified visual loss; Z16.11 Resistance to penicillins; E66.9 Obesity, unspecified; Z68.37 Body mass index [BMI] 37.0-37.9, adult; Z79.4 Long term (current) use of insulin; Z99.2 Dependence on renal dialysis; I25.2 Old myocardial infarction; Z74.01 Bed confinement status; Z79.01 Long term (current) use of anticoagulants; Z88.2 Allergy status to sulfonamides

== ENCOUNTER 2018-07-08 14:29 | Observation (INO) | payer MEDICARE, MEDICAID ==
[2018-07-08 14:39] VITALS: BMI 33.2
--- NOTE | 2018-07-08 15:09 | ED PDOC ---
Arrival/HPI - General Time Seen by Provider: 07/08/18 14:40 Historian: Patient - History of Present Illness Narrative History of Present Illness (Text): 07/08/18 15:09 37 year old M with ESRD on dialysis, CVA and DM presents complaining of general weakness. Patient reports missing last dialysis treatments Sunday and today. He receives dialysis treatments M//. He mentions missed appointments to dialysis due to regularly scheduled rides to the hospital not presenting. He does not ambulate at baseline. Lower extremity weakness at baseline. Patient denies any fevers, chills, headache, dizziness, chest pain, shortness of breath, cough, abdominal pain, nausea, vomiting, diarrhea, back pain, neck pain, or any other complaint. Rn X Ray: Dr. Granado Symptom Onset: Sudden Symptom Course: Unchanged Activities at Onset: Light Past Medical History - Provider Review Nursing Documentation Reviewed: Yes - Infectious Disease Hx of Infectious Diseases: None - Tetanus Immunization Tetanus Immunization: Unknown - Cardiac Hx Hypertension: Yes - Pulmonary Hx Asthma: No Hx Bronchitis: No Hx Chronic Obstructive Pulmonary Disease (COPD): No Hx Emphysema: No Hx Pneumonia: No Hx Sleep Apnea: No - Neurological HX Cerebrovascular Accident: Yes Hx Transient Ischemic Attacks (TIA): Yes - HEENT Hx HEENT Disorder: Yes (wears glasses, recent vision loss due to cva) Hx Blind: No Hx Deafness: No Hx Difficulty Chewing: No Hx Epistaxis: No Hx Glaucoma: No Other/Comment: BLURRY VISION. 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") Hx Dialysis: Yes Date of Last Dialysis Treatment: 02/06/18 Hx Renal Failure: Yes - Endocrine/Metabolic Hx Diabetes Mellitus Type 1: Yes Hx Hypothyroidism: Yes - Hematological/Oncological Hx Anemia: No - Integumentary Hx Dermatological Disorder: No Hx Basal Cell Carcinoma: No Hx Eczema: No Hx Melanoma: No Hx Psoriasis: No Hx Squamous Cell Carcinoma: No - Musculoskeletal/Rheumatological Hx Fractures: Yes (FX BOTH FOOT,FINGERS,ROTATOR CUFF -SPORTS RELATED) - Gastrointestinal Hx Gastrointestinal Disorders: Yes (colitis) - Genitourinary/Gynecological Hx Genitourinary Disorders: Yes (chronic indwelling lópez) Hx Incontinence: Yes Hx Urinary Tract Infection: Yes (multiple, MRSA) - Psychiatric Hx Anxiety: Yes Hx Depression: No Hx Substance Use: No - Past Surgical History Past Surgical History: No Previous - Surgical History Hx Coronary Stent: No - Anesthesia Hx Anesthesia: Yes Hx Anesthesia Reactions: No Hx Malignant Hyperthermia: No - Suicidal Assessment Feels Threatened In Home Enviroment: No Family/Social History - Physician Review Nursing Documentation Reviewed: Yes Family/Social History: Unknown Family HX Smoking Status: Never Smoked Hx Alcohol Use: No Hx Substance Use: No Hx Substance Use Treatment: No Allergies/Home Meds Allergies/Adverse Reactions: Allergies sulfamethoxazole [From Bactrim] Allergy (Verified 02/07/18 21:10) ANAPHYLAXIS trimethoprim [From Bactrim] Allergy (Verified 02/07/18 21:10) ANAPHYLAXIS Home Medications: Home Meds Medication Instructions Recorded Confirmed B Complex W-C No.20/Folic Acid 1 mg PO DAILY 02/07/18 02/07/18 [Nephrocaps Softgel] Calcitriol [Rocaltrol] 0.5 mcg PO DAILY 02/07/18 02/07/18 Docusate Sodium [Dulcolax Stool 1 cap RC DAILY 02/07/18 02/07/18 Softener] Duloxetine HCl 30 mg PO DAILY 02/07/18 02/07/18 Ergocalciferol [Drisdol 50,000 50,000 iu PO QWK 02/07/18 02/07/18 Intl Units Cap] Furosemide [Lasix] 40 mg PO MWF 02/07/18 02/07/18 HYDROmorphone [Dilaudid] 2 mg PO DAILY 02/07/18 02/07/18 Insulin Glargine,Hum.rec.anlog 15 unit SQ BID 02/07/18 02/07/18 [Basaglar Kwikpen U-100] Insulin Human Regular [HumuLIN R] 7 units SC TID 02/07/18 02/07/18 Isosorbide Dinitrate [Isordil] 20 mg PO DAILY 02/07/18 02/07/18 Labetalol [Trandate] 300 mg PO BID 02/07/18 02/07/18 Linaclotide [Linzess] 145 mcg PO DAILY 02/07/18 02/07/18 Rosuvastatin Calcium [Crestor] 20 mg PO HS 02/07/18 02/07/18 Sevelamer Carbonate [Renvela] 800 mg PO TID 02/07/18 02/07/18 Zolpidem [Ambien] 10 mg PO HS PRN 02/07/18 02/07/18 Review of Systems - Physician Review All systems were reviewed & negative as marked: Yes - Review of Systems Constitutional: absent: Fevers Respiratory: absent: SOB, Cough, Wheezing Cardiovascular: absent: Chest Pain, Syncope Gastrointestinal: absent: Abdominal Pain, Stool Changes, Diarrhea, Nausea, Vomiting Genitourinary Male: absent: Dysuria, Hematuria Musculoskeletal: absent: Arthralgias, Back Pain, Neck Pain, Myalgias Skin: absent: Rash, Ulcer Neurological: absent: Headache, Dizziness Physical Exam Vital Signs Reviewed: Yes Mental Status: Positive for: Alert and Oriented X 3 - Systems Exam Head: Present: Atraumatic, Normocephalic Pupils: Present: PERRL Extroacular Muscles: Present: EOMI Conjunctiva: Present: Normal Mouth: Present: Moist Mucous Membranes Neck: Present: Normal Range of Motion Respiratory/Chest: Present: Clear to Auscultation, Good Air Exchange. No: Respiratory Distress, Accessory Muscle Use Cardiovascular: Present: Regular Rate and Rhythm, Normal S1, S2. No: Murmurs Abdomen: No: Tenderness, Distention, Peritoneal Signs Back: Present: Normal Inspection Upper Extremity: Present: Normal Inspection. No: Cyanosis, Edema Lower Extremity: Present: Normal Inspection. No: Edema Neurological: Present: GCS=15, CN II-XII Intact, Speech Normal Skin: Present: Warm, Dry, Normal Color. No: Rashes Psychiatric: Present: Alert, Oriented x 3, Normal Insight, Normal Concentration Medical Decision Making ED Course and Treatment: 07/08/18 15:12 Impression: 37 year old M presents complaining of general weakness. Patient reports missing dialysis treatments last Sunday and today. He receives dialysis treatments M// Plan: -- Labs -- EKG -- Urinalysis -- Reassess and disposition Prior Visits: Notes and results from previous visits were reviewed. Patient was last seen in the emergency department on Progress Notes: Dr. Granado, luggage repairer visited and assesed patient at bedside. 07/08/18 15:17 EKG: NSR at [address]/t wave changes. 07/08/18 16:47 Chest X-ray -- No active disease 07/08/18 18:[address] granado in er arrangements for hd made. accepted dr padilla. - RAD Interpretation Radiology Orders: 07/08/18 14:49 CHEST PORTABLE [RAD] Stat - Scribe Statement The provider has reviewed the documentation as recorded by the Garrett Jesus All medical record entries made by the Shaeibroderick were at my direction and personally dictated by me. I have reviewed the chart and agree that the record accurately reflects my personal performance of the history, physical exam, medical decision making, and the department course for this patient. I have also personally directed, reviewed, and agree with the discharge instructions and disposition. Disposition/Present on Arrival - Present on Arrival Any Indicators Present on Arrival: No History of DVT/PE: No History of Uncontrolled Diabetes: No Urinary Catheter: Yes History Surgical Site Infection Following: None - Disposition Have Diagnosis and Disposition been Completed?: Yes Diagnosis: Generalized weakness, ESRD (end stage renal disease) Disposition: HOSPITALIZED Disposition Time: 18:00 Condition: STABLE
--- NOTE | 2018-07-08 16:24 | RAD ---
Date of service: 07/08/2018 HISTORY: gen weakness COMPARISON: 10/05/2017 TECHNIQUE: 1 view obtained. FINDINGS: LUNGS: Linear scar/atelectasis at left base, laterally. PLEURA: No significant pleural effusion identified, no pneumothorax apparent. CARDIOVASCULAR: No aortic atherosclerotic calcification present. Normal cardiac size. No pulmonary vascular congestion. OSSEOUS STRUCTURES: No significant abnormalities. VISUALIZED UPPER ABDOMEN: Normal. OTHER FINDINGS: None. IMPRESSION: No active disease.
[2018-07-08 17:05] LABS: BASO # 0.06 K/mm3 (0.0-2.0); BASO % 0.6 % (0.0-3.0); EOS # 0.4 (0.0-0.7); EOS % 4.3 % (1.5-5.0); HEMOGLOBIN 10.5 g/dL (14.0-18.0); LYMPH # 2.4 (1.2-3.4); LYMPH % 25.5 % (22.0-35.0); MEAN CELL VOLUME 96.8 fl (80.0-105.0); MEAN CORPUSCULAR HEMOGLOBIN 30.3 pg (25.0-35.0); MEAN CORPUSCULAR HGB CONC 31.3 g/dl (31.0-37.0); MEAN PLATELET VOLUME 9.6 fl (7.0-11.0); MONO # 0.7 (0.1-0.6); MONO % 7.3 % (1.0-6.0); RBC 3.47 10^6/uL (3.5-6.1); RED CELL DISTRIBUTION WIDTH 15.1 % (11.5-14.5); WHITE BLOOD COUNT 9.3 10^3/uL (4.5-11.0)
[2018-07-08 17:14] LABS: INR 1.13; PARTIAL THROMBOPLASTIN TIME 40.6 Seconds (26.9-38.3); PROTHROMBIN TIME 12.5 SECONDS (9.4-12.5)
[2018-07-08 17:17] LABS: ALB/GLOB RATIO 1.2 (1.1-1.8); ALBUMIN 3.6 g/dL (3.0-4.8); ALT/SGPT 37 U/L (7-56); AST/SGOT 35 U/L (17-59); BLOOD UREA NITROGEN 88 mg/dL (7-21); CALCIUM 8.4 mg/dL (8.4-10.5); GFR NON-AFRICAN AMERICAN 6
[2018-07-08 17:28] LABS: TROPONIN I < 0.01 ng/mL
--- NOTE | 2018-07-08 17:49 | CP.PCM.HP ---
<Sunni Hillman - Last Filed: 07/08/18 18:05> History of Present Illness - History of Present Illness History of Present Illness: Sunni Hillman DO, PGY-2: HPI for Dr. Dwyer 37 year old male with ESRD on dialysis, Factor V Leiden mutation, DM I, hypertension, multiple strokes in the past, and bedridden who presents complaining of general weakness and increased lower extremity edema. Patient reports missing last dialysis treatments Sunday and today. He receives dialysis treatments //. He mentions missed appointments to dialysis due to regularly scheduled rides to the hospital not presenting. He does not ambulate at baseline. Lower extremity weakness at baseline. Patient denies any fevers, chills, headache, dizziness, chest pain, shortness of breath, cough, abdominal pain, nausea, vomiting, diarrhea, back pain, neck pain, or any other complaint. PMD: Dr. Wakefield Medical History: Multiple CVAs, Chronic Kidney Disease, DM Type 1 with neuropathy, lumbago, Diabetic retinopathy, Neurogenic bladder with lópez, HTN, hypothyroid, anxiety Surgical History: Left eye surgery; Bladder pacemaker Allergies: Sulfamethoxazole, trimethoprim Family History: Diabetes Mellitus, COPD, Anxiety Social History: Denies alcohol, tobacco, drug use; patient is bed bound, uses a wheelchair; patient has a home health aid Present on Admission - Present on Admission Any Indicators Present on Admission: Yes Urinary Catheter: Yes Review of Systems - Review of Systems All systems: reviewed and no additional remarkable complaints except (as per HPI) Past Patient History - Infectious Disease Hx of Infectious Diseases: None - Tetanus Immunizations Tetanus Immunization: Unknown - Past Medical History & Family History Past Medical History?: Yes - Past Social History Smoking Status: Never Smoked - CARDIAC Hx Hypertension: Yes - PULMONARY Hx Asthma: No Hx Bronchitis: No Hx Chronic Obstructive Pulmonary Disease (COPD): No Hx Emphysema: No Hx Pneumonia: No Hx Sleep Apnea: No - NEUROLOGICAL HX Cerebrovascular Accident: Yes Hx Transient Ischemic Attacks (TIA): Yes - HEENT Hx HEENT Problems: Yes (wears glasses, recent vision loss due to cva) Hx Blind: No Hx Deafness: No Hx Difficulty Chewing: No Hx Epistaxis: No Hx Glaucoma: No Other/Comment: BLURRY VISION. diabetic retinopathy - RENAL Hx Chronic Kidney Disease: Yes ("interstem, 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") Hx Dialysis: Yes Date of Last Dialysis Treatment: 02/06/18 Hx Renal Failure: Yes - ENDOCRINE/METABOLIC Hx Diabetes Mellitus Type 1: Yes Hx Hypothyroidism: Yes - HEMATOLOGICAL/ONCOLOGICAL Hx Anemia: No - INTEGUMENTARY Hx Dermatological Problems: No Hx Basil Cell: No Hx Eczema: No Hx Melanoma: No Hx Psoriasis: No Hx Squamous Cell: No - MUSCULOSKELETAL/RHEUMATOLOGICAL Hx Fractures: Yes (FX BOTH FOOT,FINGERS,ROTATOR CUFF -SPORTS RELATED) - GASTROINTESTINAL Hx Gastrointestinal Disorders: Yes (colitis) - GENITOURINARY/GYNECOLOGICAL Hx Genitourinary Disorders: Yes (chronic indwelling lópez) Hx Incontinence: Yes Hx Urinary Tract Infection: Yes (multiple, MRSA) - PSYCHIATRIC Hx Anxiety: Yes Hx Depression: No Hx Substance Use: No - SURGICAL HISTORY Hx Coronary Stent: No - ANESTHESIA Hx Anesthesia: Yes Hx Anesthesia Reactions: No Hx Malignant Hyperthermia: No Meds Allergies/Adverse Reactions: Allergies Allergy/AdvReac Type Severity Reaction Status Date / Time sulfamethoxazole Allergy ANAPHYLAXIS Verified 02/07/18 21:10 [From Bactrim] trimethoprim [From Bactrim] Allergy ANAPHYLAXIS Verified 02/07/18 21:10 Physical Exam - Constitutional Appears: Non-toxic, No Acute Distress - Head Exam Head Exam: ATRAUMATIC, NORMOCEPHALIC - Eye Exam Eye Exam: EOMI, Normal appearance Pupil Exam: PERRL - ENT Exam ENT Exam: Mucous Membranes Moist - Neck Exam Neck exam: Positive for: Normal Inspection - Respiratory Exam Respiratory Exam: Rales, NORMAL BREATHING PATTERN. absent: Accessory Muscle Use - Cardiovascular Exam Cardiovascular Exam: RRR, +S1, +S2 - GI/Abdominal Exam GI & Abdominal Exam: Soft. absent: Guarding, Rebound - Extremities Exam Extremities exam: Positive for: pedal edema - Neurological Exam Neurological exam: Alert, CN II-XII Intact, Oriented x3 - Psychiatric Exam Psychiatric exam: Normal Affect, Normal Mood - Skin Skin Exam: Dry, Intact, Normal Color, Warm Results - Vital Signs Recent Vital Signs: Last Vital Signs Temp 98.4 F 07/08/18 15:18 Pulse 89 07/08/18 16:53 Resp 18 07/08/18 16:53 BP 144/96 H 07/08/18 16:53 Pulse Ox 100 07/08/18 16:53 - Labs Result Diagrams: 07/08/18 16:59 07/08/18 16:59 Labs: Laboratory Results - last 24 hr 07/08/18 07/08/18 07/08/18 16:59 16:59 16:59 WBC 9.3 RBC 3.47 L Hgb 10.5 L Hct 33.6 L MCV 96.8 D MCH 30.3 MCHC 31.3 RDW 15.1 H Plt Count 340 MPV 9.6 Neut % (Auto) 62.3 Lymph % (Auto) 25.5 Kane % (Auto) 7.3 H Eos % (Auto) 4.3 Baso % (Auto) 0.6 Lymph # (Auto) 2.4 [place] # (Auto) 0.7 H Eos # (Auto) 0.4 Baso # (Auto) 0.06 Absolute Neuts (auto) 5.78 PT 12.5 INR 1.13 APTT 40.6 H Sodium 140 Potassium 5.1 H Chloride 100 Carbon Dioxide 30 Anion Gap 15 BUN 88 H Creatinine 9.2 H* D Est GFR ( Amer) 8 Est GFR (Non-Af Amer) 6 Random Glucose 86 Calcium 8.4 Magnesium 3.0 H Total Bilirubin 0.4 AST 35 ALT 37 Alkaline Phosphatase 92 Lactate Dehydrogenase 457 Total Creatine Kinase 64 Troponin I < 0.01 Total Protein 6.6 Albumin 3.6 Globulin 3.0 Albumin/Globulin Ratio 1.2 Assessment & Plan - Assessment and Plan (Free Text) Assessment: 37 year old male with a past medical history of ESRD on HD MWF, factor V Leiden mutation, DM I, hypertension, multiple CVA, bed bound, and lumbago who presents with volume overload secondary to missing two dialysis sessions. Plan: 1) ESRD with acute volume overload - Patient to go for Dialysis tonight - Continue with SEWING TECHNIQUES DEMONSTRATOR - Avoid nephrotoxins and NSAIDs - Monitor daily weights 2) DM I with peripheral neuropathy - Continue with long acting insulin 15 units q12h - ISS lispro medium - fingersticks ACHS - Continue with home gabapentin 3) Hypertension - Losartan 50 mg - Labetalol 300 mg BID 4) Hypothyroidism - Levothyroxine 5) Factor V Leiden mutation - Eliquis 2.5 mg BID - Aspirin 81 mg 6) Lumbago - Hydromorphone 2 mg PRN 7) Dyslipidemia - Statin 8) Constipation - Continue with home bowel regimen 9) DVT/GI prophylaxis - SCD/Protonix 40 mg PO daily Case was reviewed and discussed with attending physician, Dr. Dwyer <YuliyaEctor - Last Filed: 07/10/18 13:49> Results - Vital Signs Recent Vital Signs: Last Vital Signs Temp 97.8 F 07/09/18 08:33 Pulse 79 07/09/18 17:21 Resp 20 07/09/18 08:33 BP 103/59 L 07/09/18 17:21 Pulse Ox 95 07/09/18 08:33 - Labs Result Diagrams: 07/09/18 09:55 07/09/18 09:55 Labs: Laboratory Results - last 24 hr 07/09/18 07/09/18 16:00 17:21 POC Glucose (mg/dL) 244 H 374 H Attending/Attestation - Attestation I have personally seen and examined this patient.: Yes I have fully participated in the care of the patient.: Yes I have reviewed all pertinent clinical information: Yes Notes (Text): 07/10/18 13:47 Attending note ; Patient seen and examined with resident in ER . Patient is alert and awake. Denies any chest pain. Complaining of bilateral lower extremity swelling. Patient is bedbound. Denies any palpitations Denies any nausea, vomiting. Patient is a 37 year old male with ESRD on dialysis, Factor V Leiden mutation, DM I, hypertension, multiple strokes in the past, and bedridden who presents complaining of general weakness and increased lower extremity edema. Patient reports missing last dialysis treatments Sunday and today. 1. Volume overload secondary to missing hemodialysis. Patient has bilateral lower extremity swelling. Mild hypokalemia and acidosis. Case discussed with nephrology in detail. Plan for dialysis today. 2. History of factor V Leyden deficiency with multiple strokes. Continue Eliquis. 3. Diabetes; continue regular insulin sliding scale . 4. Patient is bedbound. Continue physical therapy . 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 Upon discharge the patient will follow up with PMD Dr. Wakefield.
[2018-07-08] MEDS ORDERED: Insulin Detemir 100 units/ml Vial (Levemir) SC SCH (22:00)
[2018-07-09 00:01] VITALS: RESP 20
[2018-07-09] MEDS ORDERED: Levothyroxine 175 MCG TAB PO SCH (06:30)
[2018-07-09] MEDS: Insulin Lispro (humaLOG) MEDIUM Coverage SC SCH ×3 (08:30→17:22)
[2018-07-09 08:34] VITALS: TEMP 97.8; O2SAT 95
--- NOTE | 2018-07-09 09:23 | CARD ---
APPROVED REPORT Date of service: 07/08/2018 EKG Measurement Heart [id number] <Conclusion> Normal sinus rhythm Inferior infarct, age undetermined Poor R wave progression in Precordial leads Abnormal ECG
[2018-07-09] MEDS ORDERED: Non Formulary Medication (Linaclotide [Linzess] 145 MCG) PO SCH (10:00)
[2018-07-09] MEDS ORDERED: Pantoprazole 40 mg EC Tab PO SCH (10:00)
[2018-07-09] MEDS ORDERED: Insulin Detemir 100 units/ml Vial (Levemir) SC SCH (10:00)
[2018-07-09] MEDS ORDERED: [UNRECOGNIZED DRUG - REMARK] PO SCH (10:00)
[2018-07-09 10:09] LABS: BASO # 0.07 K/mm3 (0.0-2.0); BASO % 0.8 % (0.0-3.0); EOS # 0.3 (0.0-0.7); EOS % 3.7 % (1.5-5.0); HEMOGLOBIN 10.7 g/dL (14.0-18.0); LYMPH # 2.8 (1.2-3.4); MEAN CELL VOLUME 97.1 fl (80.0-105.0); MEAN CORPUSCULAR HEMOGLOBIN 30.6 pg (25.0-35.0); MEAN CORPUSCULAR HGB CONC 31.5 g/dl (31.0-37.0); MEAN PLATELET VOLUME 9.4 fl (7.0-11.0); MONO # 0.9 (0.1-0.6); MONO % 9.5 % (1.0-6.0); RBC 3.5 10^6/uL (3.5-6.1); RED CELL DISTRIBUTION WIDTH 15.1 % (11.5-14.5); WHITE BLOOD COUNT 9.3 10^3/uL (4.5-11.0)
--- NOTE | 2018-07-09 10:18 | CP.PCM.DIS ---
<Tunde Ann - Last Filed: 07/09/18 13:35> Provider - Provider Date of Admission: 07/08/18 17:24 Attending physician: Ector Dwyer MD Primary care physician: Araseli Wakefield MD Consults: 07/09/18 06:58 Nephrology Consult Routine Comment: missed dialysis Consulting Provider: Artis Mendoza Consulting Physician: Artis Mendoza Reason for Consult: missed dialysis Time Spent in preparation of Discharge (in minutes): 60 Hospital Course - Lab Results Lab Results: Most Recent Lab Values WBC 9.3 10^3/uL (4.5-11.0) 07/08/18 16:59 RBC 3.47 10^6/uL (3.5-6.1) L 07/08/18 16:59 Hgb 10.5 g/dL (14.0-18.0) L 07/08/18 16:59 Hct 33.6 % (42.0-52.0) L 07/08/18 16:59 MCV 96.8 fl (80.0-105.0) D 07/08/18 16:59 MCH 30.3 pg (25.0-35.0) 07/08/18 16:59 MCHC 31.3 g/dl (31.0-37.0) 07/08/18 16:59 RDW 15.1 % (11.5-14.5) H 07/08/18 16:59 Plt Count 340 10^3/uL (120.0-450.0) 07/08/18 16:59 MPV 9.6 fl (7.0-11.0) 07/08/18 16:59 Neut % (Auto) 62.3 % (50.0-68.0) 07/08/18 16:59 Lymph % (Auto) 25.5 % (22.0-35.0) 07/08/18 16:59 [place] % (Auto) 7.3 % (1.0-6.0) H 07/08/18 16:59 Eos % (Auto) 4.3 % (1.5-5.0) 07/08/18 16:59 Baso % (Auto) 0.6 % (0.0-3.0) 07/08/18 16:59 Lymph # (Auto) 2.4 (1.2-3.4) 07/08/18 16:59 [place] # (Auto) 0.7 (0.1-0.6) H 07/08/18 16:59 Eos # (Auto) 0.4 (0.0-0.7) 07/08/18 16:59 Baso # (Auto) 0.06 K/mm3 (0.0-2.0) 07/08/18 16:59 Absolute Neuts (auto) 5.78 (1.4-6.5) 07/08/18 16:59 PT 12.5 SECONDS (9.4-12.5) 07/08/18 16:59 INR 1.13 07/08/18 16:59 APTT 40.6 Seconds (26.9-38.3) H 07/08/18 16:59 Sodium 140 mmol/L (132-148) 07/08/18 16:59 Potassium 5.1 mmol/L (3.6-5.0) H 07/08/18 16:59 Chloride 100 mmol/L (98-107) 07/08/18 16:59 Carbon Dioxide 30 mmol/L (21-33) 07/08/18 16:59 Anion Gap 15 (10-20) 07/08/18 16:59 BUN 88 mg/dL (7-21) H 07/08/18 16:59 Creatinine 9.2 mg/dl (0.8-1.5) H* D 07/08/18 16:59 Est GFR ( Amer) 8 07/08/18 16:59 Est GFR (Non-Af Amer) 6 07/08/18 16:59 POC Glucose (mg/dL) 170 mg/dL (65-110) H 07/09/18 07:19 Random Glucose 86 mg/dL (70-110) 07/08/18 16:59 Calcium 8.4 mg/dL (8.4-10.5) 07/08/18 16:59 Magnesium 3.0 mg/dL (1.7-2.2) H 07/08/18 16:59 Total Bilirubin 0.4 mg/dL (0.2-1.3) 07/08/18 16:59 AST 35 U/L (17-59) 07/08/18 16:59 ALT 37 U/L (7-56) 07/08/18 16:59 Alkaline Phosphatase 92 U/L (38-126) 07/08/18 16:59 Lactate Dehydrogenase 457 U/L (333-699) 07/08/18 16:59 Total Creatine Kinase 64 U/L (35-230) 07/08/18 16:59 Troponin I < 0.01 ng/mL 07/08/18 16:59 Total Protein 6.6 g/dL (5.8-8.3) 07/08/18 16:59 Albumin 3.6 g/dL (3.0-4.8) 07/08/18 16:59 Globulin 3.0 gm/dL 07/08/18 16:59 Albumin/Globulin Ratio 1.2 (1.1-1.8) 07/08/18 16:59 - Hospital Course Hospital Course: Tunde Ann, PGY-1, Internal Medicine Discharge Summary for Dr. Dwyer 37 year old male with past medical history of ESRD on dialysis, Factor V Leiden mutation, DM I, hypertension, multiple strokes in the past, and bedridden presented with general weakness and increased lower extremity edema. Patient reported missing dialysis treatments last Sunday and this Sunday. Patient recei ves dialysis treatments M/W/F. He mentions missed appointments to dialysis due to regularly scheduled rides to the hospital not presenting. He does not ambulate at baseline. He has lower extremity weakness at baseline. Upon admission, patient's BUN/Cr was 88/9.2. Only electrolyte abnormalities were K which was 5.1 and Mg which was elevated at 3. Patient had hemodialysis session last night and tolerated it well with UFR 3000 mL. Repeat CMP was performed today with improvement of BUN/Cr, potassium, and magnesium. Social work worked very hard to set up transportation for patient for dialysis sessions as his transportation had been suspended for two weeks. He was finally set up with transportation. Patient's home medications were all resumed on this admission. Patient was found to be stable and ready for discharge. Patient was told to follow up with PCP within 3-5 days. Patient was told to follow up with Sunday, Sunday, Sunday dialysis sessions and call 911 if he was unable to obtain a ride for dialysis. He was instructed that he must not miss these dialysis dates. Patient was told to take all medications as prescribed. Patient was told to return to the emergency department if she had any new or concerning symptoms. Discharge Diagnoses ESRD with acute volume overload Diabetes Mellitus type I Peripheral Neuropathy Hypertension Hypothyroidism Factor V Leidin Mutation Lumbago Dyslipidemia Constipation - Date & Time of H&P Date of H&P: 07/08/18 Time of H&P: 17:49 Discharge Exam - Head Exam Head Exam: ATRAUMATIC, NORMOCEPHALIC - Eye Exam Eye Exam: EOMI, PERRL - ENT Exam ENT Exam: Mucous Membranes Moist - Respiratory Exam Respiratory Exam: Clear to PA & Lateral, NORMAL BREATHING PATTERN. absent: Rales, Rhonchi, Wheezes - Cardiovascular Exam Cardiovascular Exam: REGULAR RHYTHM, RRR, +S1, +S2. absent: Clicks, Gallop, Rubs - GI/Abdominal Exam GI & Abdominal Exam: Normal Bowel Sounds, Soft. absent: Distended, Firm, Guarding, Tenderness - Extremities Exam Extremities exam: normal capillary refill, normal inspection Additional comments: +3/5 bilateral lower extremity, +5/5 bilateral upper extremity, AV fistula present and with good bruit in LUE - Neurological Exam Neurological exam: Alert, CN II-XII Intact, Normal Gait, Oriented x3 - Skin Skin Exam: Dry, Intact, Normal Color, Warm Discharge Plan - Follow Up Plan Condition: STABLE Disposition: HOME/ ROUTINE Instructions: Generalized Weakness (DC), End Stage Kidney Disease (DC), Dialysis and Diet Additional Instructions: Please resume your dialysis Sunday, Sunday and Sunday Resume your home medications Follow up with your primary care doctor in 3-5 days Please return if the symptoms worsens or call 911. Referrals: Artis Mendoza MD [Staff Provider] - Araseli Wakefield MD [Primary Care Provider] - <Ector Dwyer - Last Filed: 07/10/18 16:20> Provider - Provider Date of Admission: 07/08/18 17:24 Attending physician: Ector Dwyer MD Primary care physician: Araseli Wakefield MD Consults: 07/09/18 06:58 Nephrology Consult Routine Comment: missed dialysis Consulting Provider: Artis eMndoza Consulting Physician: Artis Mendoza Reason for Consult: missed dialysis 07/09/18 10:59 Alodize Machine Operator [Case Management Referral] Routine Comment: Physician Instructions: Reason For Exam: hd planning Reason for Referral: Discharge Planning Hospital Course - Lab Results Lab Results: Most Recent Lab Values WBC 9.3 10^3/uL (4.5-11.0) 07/09/18 09:55 RBC 3.50 10^6/uL (3.5-6.1) 07/09/18 09:55 Hgb 10.7 g/dL (14.0-18.0) L 07/09/18 09:55 Hct 34.0 % (42.0-52.0) L 07/09/18 09:55 MCV 97.1 fl (80.0-105.0) 07/09/18 09:55 MCH 30.6 pg (25.0-35.0) 07/09/18 09:55 MCHC 31.5 g/dl (31.0-37.0) 07/09/18 09:55 RDW 15.1 % (11.5-14.5) H 07/09/18 09:55 Plt Count 299 10^3/uL (120.0-450.0) 07/09/18 09:55 MPV 9.4 fl (7.0-11.0) 07/09/18 09:55 Neut % (Auto) 56.0 % (50.0-68.0) 07/09/18 09:55 Lymph % (Auto) 30.0 % (22.0-35.0) 07/09/18 09:55 [place] % (Auto) 9.5 % (1.0-6.0) H 07/09/18 09:55 Eos % (Auto) 3.7 % (1.5-5.0) 07/09/18 09:55 Baso % (Auto) 0.8 % (0.0-3.0) 07/09/18 09:55 Lymph # (Auto) 2.8 (1.2-3.4) 07/09/18 09:55 [place] # (Auto) 0.9 (0.1-0.6) H 07/09/18 09:55 Eos # (Auto) 0.3 (0.0-0.7) 07/09/18 09:55 Baso # (Auto) 0.07 K/mm3 (0.0-2.0) 07/09/18 09:55 Absolute Neuts (auto) 5.20 (1.4-6.5) 07/09/18 09:55 PT 12.5 SECONDS (9.4-12.5) 07/08/18 16:59 INR 1.13 07/08/18 16:59 APTT 40.6 Seconds (26.9-38.3) H 07/08/18 16:59 Sodium 136 mmol/L (132-148) 07/09/18 09:55 Potassium 4.9 mmol/L (3.6-5.0) 07/09/18 09:55 Chloride 94 mmol/L (98-107) L 07/09/18 09:55 Carbon Dioxide 32 mmol/L (21-33) 07/09/18 09:55 Anion Gap 15 (10-20) 07/09/18 09:55 BUN 48 mg/dL (7-21) H 07/09/18 09:55 Creatinine 6.3 mg/dl (0.8-1.5) H 07/09/18 09:55 Est GFR ( Amer) 12 07/09/18 09:55 Est GFR (Non-Af Amer) 10 07/09/18 09:55 POC Glucose (mg/dL) 374 mg/dL (65-110) H 07/09/18 17:21 Random Glucose 127 mg/dL (70-110) H 07/09/18 09:55 Calcium 8.6 mg/dL (8.4-10.5) 07/09/18 09:55 Phosphorus 5.6 mg/dL (2.5-4.5) H 07/09/18 09:55 Magnesium 2.5 mg/dL (1.7-2.2) H 07/09/18 09:55 Total Bilirubin 0.5 mg/dL (0.2-1.3) 07/09/18 09:55 AST 32 U/L (17-59) 07/09/18 09:55 ALT 36 U/L (7-56) 07/09/18 09:55 Alkaline Phosphatase 97 U/L (38-126) 07/09/18 09:55 Lactate Dehydrogenase 457 U/L (333-699) 07/08/18 16:59 Total Creatine Kinase 64 U/L (35-230) 07/08/18 16:59 Troponin I < 0.01 ng/mL 07/08/18 16:59 Total Protein 6.6 g/dL (5.8-8.3) 07/09/18 09:55 Albumin 3.6 g/dL (3.0-4.8) 07/09/18 09:55 Globulin 3.0 gm/dL 07/09/18 09:55 Albumin/Globulin Ratio 1.2 (1.1-1.8) 07/09/18 09:55 Attending/Attestation - Attestation I have personally seen and examined this patient.: Yes I have fully participated in the care of the patient.: Yes I have reviewed all pertinent clinical information, including history, physical exam and plan: Yes Notes (Text): 07/10/18 16:11 Attending note ; Patient seen and examined with resident. Patient is alert and awake. bilateral lower extremity swelling is improving. s/p HD yesterday. Patient is bedbound. Denies any palpitations and chest pain. Denies any nausea, vomiting. tolerating diet. Patient is a 37 year old male with ESRD on dialysis, Factor V Leiden mutation, DM I, hypertension, multiple strokes in the past, and bedridden who presents complaining of general weakness and increased lower extremity edema. Patient reports missing last dialysis treatments last Sunday and Sunday. 1. Volume overload secondary to missing hemodialysis. Patient has bilateral lower extremity swelling. Status post hemodialysis yesterday. 2. History of factor V Leyden deficiency with multiple strokes. Continue Eliquis. 3. Diabetes; continue regular insulin sliding scale . 4. Patient is bedbound. Continue physical therapy . 5. Hypertension; continue labetalol and cozaar. 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 Upon discharge the patient will follow up with PMD Dr. Wakefield.
[2018-07-09 10:28] LABS: ALB/GLOB RATIO 1.2 (1.1-1.8); ALBUMIN 3.6 g/dL (3.0-4.8); CALCIUM 8.6 mg/dL (8.4-10.5)
--- NOTE | 2018-07-09 11:06 | CP.PCM.APN ---
Subjective - Date & Time of Evaluation Date of Evaluation: 07/09/18 Time of Evaluation: 11:00 - Subjective Subjective: Pt seen in bed , resting comfortably STates received dialysis yesterday in house, denied shortness of breath, pain, edema. Pt. states cannot walk , due to hx of cva, uses wheelchair at home for mobility. Objective - Vital Signs/Intake and Output Vital Signs (last 24 hours): Temp Pulse Resp BP Pulse Ox 97.8 F 70 20 131/84 95 07/09/18 08:33 07/09/18 09:13 07/09/18 08:33 07/09/18 10:55 07/09/18 08:33 Intake and Output: 07/09/18 07/09/18 06:59 18:59 Intake Total 240 Output Total 650 Balance -410 - Medications Medications: Current Medications Apixaban (Eliquis) 2.5 mg PO BID [facility]; Protocol Last Admin: 07/09/18 09:12 Dose: 2.5 mg Aspirin (Ecotrin) 81 mg PO DAILY [facility] Last Admin: 07/09/18 09:12 Dose: 81 mg Atorvastatin Calcium (Lipitor) 80 mg PO HS [facility] Last Admin: 07/08/18 23:20 Dose: 80 mg Docusate Sodium (Colace) 100 mg PO DAILY [facility] Last Admin: 07/09/18 09:12 Dose: 100 mg Duloxetine HCl (Cymbalta) 30 mg PO DAILY [facility] Last Admin: 07/09/18 09:12 Dose: 30 mg Furosemide (Lasix) 40 mg PO TTS [facility] Last Admin: 07/09/18 10:55 Dose: 40 mg Gabapentin (Neurontin) 100 mg PO TID [facility]; Protocol Last Admin: 07/09/18 09:12 Dose: 100 mg Hydromorphone HCl (Dilaudid) 2 mg PO DAILY PRN PRN Reason: Pain, severe (8-10) Last Admin: 07/08/18 18:23 Dose: 2 mg Insulin Detemir (Levemir) 8 unit SC HS [facility] Last Admin: 07/08/18 23:20 Dose: 8 units Insulin Detemir (Levemir) 7 unit SC QAM [facility] Last Admin: 07/09/18 09:12 Dose: 7 unit Insulin Human Lispro (Humalog Med) 0 units SC ACHS [facility]; Protocol Last Admin: 07/09/18 08:30 Dose: 1 unit Isosorbide Dinitrate (Isordil) 20 mg PO DAILY [facility] Last Admin: 07/09/18 09:12 Dose: 20 mg Labetalol HCl (Trandate) 300 mg PO BID [facility] Last Admin: 07/09/18 09:13 Dose: 300 mg Levothyroxine Sodium (Synthroid) 175 mcg PO DAILY@0630 [facility] Last Admin: 07/09/18 06:16 Dose: 175 mcg Losartan Potassium (Cozaar) 50 mg PO QPM [facility] Non-Formulary Medication (B Complex W-C No.20/Folic Acid [Nephrocaps Softgel]) 1 mg PO DAILY [facility] Last Admin: 07/09/18 10:16 Dose: Not Given Non-Formulary Medication (Linaclotide [Linzess]) 145 mcg PO DAILY [facility] Last Admin: 07/09/18 10:16 Dose: Not Given Pantoprazole Sodium (Protonix Ec Tab) 40 mg PO DAILY [facility] Last Admin: 07/09/18 09:12 Dose: 40 mg Sevelamer HCl (Renagel) 800 mg PO TID [facility] Last Admin: 07/09/18 09:11 Dose: 800 mg Zolpidem Tartrate (Ambien) 10 mg PO HS PRN; Protocol PRN Reason: Insomnia Last Admin: 07/08/18 23:20 Dose: 10 mg - Labs Labs: 07/09/18 09:55 07/09/18 09:55 PT 12.5 SECONDS (9.4-12.5) 07/08/18 16:59 INR 1.13 07/08/18 16:59 APTT 40.6 Seconds (26.9-38.3) H 07/08/18 16:59 - Constitutional Appears: Well, Non-toxic - Head Exam Head Exam: NORMOCEPHALIC - Eye Exam Eye Exam: Normal appearance - ENT Exam ENT Exam: Normal Exam - Neck Exam Neck Exam: Full ROM - Respiratory Exam Respiratory Exam: Clear to Ausculation Bilateral, NORMAL BREATHING PATTERN - Cardiovascular Exam Cardiovascular Exam: REGULAR RHYTHM, +S1, +S2 Additional comments: av fistula, pos bruit, pos thrill noted to left upper arm. - GI/Abdominal Exam GI & Abdominal Exam: Soft - Rectal Exam Rectal Exam: Deferred - Extremities Exam Additional comments: lower extremity weakness - Neurological Exam Neurological Exam: Abnormal Gait, Alert, Awake, Motor Sensory Deficit, Oriented x3 - Psychiatric Exam Psychiatric exam: Normal Mood - Skin Skin Exam: Dry, Intact, Normal Color, Warm Assessment and Plan - Assessment and Plan (Free Text) Assessment: Assessment: Weakness, secondary to missed dialysis. WEakness improved, post dialysis session yesterday. Plan: OUtpatient dialysis as scheduled pending clarification of transportation to [facility] outpatient dialysis. Per patient, transport by [facility] [place] was suspended for 2 weeks, patient with no other form of transportation to dialysis. Per PMD, Dr. Dwyer, and equities trader, Dr Mendoza, medically cleared for DC home, but cannot Discharge home until outpatient transportation arranged for dialysis, Discussed in IDT rounds, Diane DASILVA, and Dianne CID.
[2018-07-09 17:20] VITALS: BP 103/59; PULSE 79
[2018-07-15] MEDS ORDERED: Ergocalciferol 50,000 Intl Units Cap PO SCH (10:00)
== END 2018-07-09 21:33 | disposition home or self-care (01) ==
LOC: ED 14:29 → ERH 17:24 → 3RNO 22:59
PROVIDERS: ADMIT Internal Medicine; ATTEND Internal Medicine
DX: R53.1 Weakness (principal); N18.6 End stage renal disease; I12.0 Hypertensive chronic kidney disease with stage 5 chronic kidney disease or end stage renal disease; E10.22 Type 1 diabetes mellitus with diabetic chronic kidney disease; Z91.15 Patient's noncompliance with renal dialysis; E87.70 Fluid overload, unspecified; D68.51 Activated protein C resistance; E03.9 Hypothyroidism, unspecified; E10.319 Type 1 diabetes mellitus with unspecified diabetic retinopathy without macular edema; N31.9 Neuromuscular dysfunction of bladder, unspecified; E78.5 Hyperlipidemia, unspecified; F41.9 Anxiety disorder, unspecified; I69.398 Other sequelae of cerebral infarction; H54.7 Unspecified visual loss; E10.42 Type 1 diabetes mellitus with diabetic polyneuropathy; K59.00 Constipation, unspecified; M54.5 Low back pain; Z99.2 Dependence on renal dialysis; Z79.4 Long term (current) use of insulin; Z74.01 Bed confinement status
CPT/HCPCS: 36415; 71045; 80053; 82550; 82948; 83615; 83735; 84100; 84484; 85025; 85610; 85730; 93005; 99285; G0378

== ENCOUNTER 2018-07-19 14:17 | Emergency (ER) | payer MEDICARE, MEDICAID ==
[2018-07-19 14:19] VITALS: BMI 33.2
--- NOTE | 2018-07-19 14:34 | ED PDOC ---
Arrival/HPI - General Chief Complaint: Male Genitourinary Time Seen by Provider: 07/19/18 14:24 Historian: Patient - History of Present Illness Time/Duration: Prior to Arrival Symptom Onset: Sudden Associated Symptoms (Text): 07/19/18 14:32 Patient reports that his ride for dialysis [facility] did not show up today. He spoke with his group marketing vp who directed him to call an ambulance to the emergency department to get dialysis done. I spoke with outpatient dialysis and patient will be transferred upstairs to have his dialysis done today. He will be discharged from the emergency department. Past Medical History - Infectious Disease Hx of Infectious Diseases: None - Tetanus Immunization Tetanus Immunization: Unknown - Cardiac Hx Hypertension: Yes - Pulmonary Hx Asthma: No Hx Bronchitis: No Hx Chronic Obstructive Pulmonary Disease (COPD): No Hx Emphysema: No Hx Pneumonia: No Hx Sleep Apnea: No - Neurological HX Cerebrovascular Accident: Yes Hx Transient Ischemic Attacks (TIA): Yes - HEENT Hx HEENT Disorder: Yes (wears glasses, recent vision loss due to cva) Hx Blind: No Hx Deafness: No Hx Difficulty Chewing: No Hx Epistaxis: No Hx Glaucoma: No Other/Comment: BLURRY VISION. 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") Hx Dialysis: Yes Date of Last Dialysis Treatment: 07/08/18 Hx Neurogenic Bladder: Yes Hx Renal Failure: Yes Other/Comment: Lt Upper fistula HD-MWF @ [facility] [place] - Endocrine/Metabolic Hx Diabetes Mellitus Type 1: Yes Hx Hypothyroidism: Yes - Hematological/Oncological Hx Blood Disorders: Yes (factor V leiden) Hx Anemia: No - Integumentary Hx Dermatological Disorder: No Hx Basal Cell Carcinoma: No Hx Eczema: No Hx Melanoma: No Hx Psoriasis: No Hx Squamous Cell Carcinoma: No - Musculoskeletal/Rheumatological Hx Back Pain: Yes Hx Falls: No Hx Fractures: Yes (FX BOTH FOOT,FINGERS,ROTATOR CUFF -SPORTS RELATED) - Gastrointestinal Hx Gastrointestinal Disorders: Yes (colitis) - Genitourinary/Gynecological Hx Genitourinary Disorders: Yes (chronic indwelling lópez) Hx Urinary Tract Infection: Yes (multiple, MRSA) - Psychiatric Hx Anxiety: Yes Hx Depression: No Hx Substance Use: No - Past Surgical History Past Surgical History: No Previous - Surgical History Hx Coronary Stent: No Other/Comment: bladder surgery - Anesthesia Hx Anesthesia: Yes Hx Anesthesia Reactions: No Hx Malignant Hyperthermia: No - Suicidal Assessment Feels Threatened In Home Enviroment: No Family/Social History - Physician Review Nursing Documentation Reviewed: Yes Family/Social History: Unknown Family HX Smoking Status: Never Smoked Hx Alcohol Use: No Hx Substance Use: No Hx Substance Use Treatment: No Allergies/Home Meds Allergies/Adverse Reactions: Allergies sulfamethoxazole [From Bactrim] Allergy (Verified 07/19/18 14:29) ANAPHYLAXIS trimethoprim [From Bactrim] Allergy (Verified 07/19/18 14:29) ANAPHYLAXIS Home Medications: Home Meds Medication Instructions Recorded Confirmed B Complex W-C No.20/Folic Acid 1 mg PO DAILY 02/07/18 02/07/18 [Nephrocaps Softgel] Calcitriol [Rocaltrol] 0.5 mcg PO DAILY 02/07/18 02/07/18 Docusate Sodium [Dulcolax Stool 1 cap RC DAILY 02/07/18 02/07/18 Softener] Duloxetine HCl 30 mg PO DAILY 02/07/18 02/07/18 Ergocalciferol [Drisdol 50,000 50,000 iu PO QWK 02/07/18 02/07/18 Intl Units Cap] Furosemide [Lasix] 40 mg PO MWF 02/07/18 02/07/18 HYDROmorphone [Dilaudid] 2 mg PO DAILY 02/07/18 02/07/18 Insulin Glargine,Hum.rec.anlog 15 unit SQ BID 02/07/18 02/07/18 [Basaglar Kwikpen U-100] Insulin Human Regular [HumuLIN R] 7 units SC TID 02/07/18 02/07/18 Isosorbide Dinitrate [Isordil] 20 mg PO DAILY 02/07/18 02/07/18 Labetalol [Trandate] 300 mg PO BID 02/07/18 02/07/18 Linaclotide [Linzess] 145 mcg PO DAILY 02/07/18 02/07/18 Rosuvastatin Calcium [Crestor] 20 mg PO HS 02/07/18 02/07/18 Sevelamer Carbonate [Renvela] 800 mg PO TID 02/07/18 02/07/18 Zolpidem [Ambien] 10 mg PO HS PRN 02/07/18 02/07/18 Physical Exam Temperature: Afebrile Blood Pressure: Normal Pulse: Regular Respiratory Rate: Normal Appearance: Positive for: Well-Appearing, Non-Toxic, Comfortable Pain Distress: None Mental Status: Positive for: Alert and Oriented X 3 Disposition/Present on Arrival - Present on Arrival Any Indicators Present on Arrival: No History of DVT/PE: No History of Uncontrolled Diabetes: No Urinary Catheter: Yes History of Decub. Ulcer: No History Surgical Site Infection Following: None - Disposition Have Diagnosis and Disposition been Completed?: Yes Diagnosis: Renal failure Disposition: HOME/ ROUTINE Disposition Time: 14:34 Patient Plan: Discharge Condition: FAIR Discharge Instructions (ExitCare): Kidney Failure (DC) Additional Instructions: Transfer to outpatient dialysis now.
[2018-07-19 14:44] VITALS: BP 150/87; PULSE 90; RESP 18; TEMP 98.3; O2SAT 100
== END 2018-07-19 14:43 | disposition home or self-care (01) ==
LOC: ED 14:17
DX: N19 Unspecified kidney failure (principal)